=== PATIENT | male | born 1960 | race Caucasian/White ===

== ENCOUNTER 2022-09-12 09:35 | Outpatient (OUT) | payer BC, SELFPAY | END 2022-09-12 09:36 | disposition home or self-care (01) | LOC: LAB 09:38 | PROVIDERS: PCP Internal Medicine | DX: K50.019 Crohn's disease of small intestine with unspecified complications (principal) | CPT/HCPCS: 36415; 84132 ==

== ENCOUNTER 2023-03-18 09:39 | Outpatient (OUT) | payer BC, SELFPAY ==
[2023-03-23 00:07] LABS: Calprotectin, Fecal 79 ug/g (0-120)
== END 2023-03-18 09:40 | disposition home or self-care (01) ==
LOC: LAB 09:41
PROVIDERS: PCP Internal Medicine
DX: K50.819 Crohn's disease of both small and large intestine with unspecified complications (principal)
CPT/HCPCS: 83993

== ENCOUNTER 2023-10-25 12:20 | Outpatient (OUT) | payer BC, SELFPAY ==
[2023-10-25 13:36] LABS: Anion Gap 14.4; BUN Creatinine Ratio 11.9; Calcium 9.2 mg/dL (8.5-10.1); Chloride 107 mmol/L (98-107); Estimated GFR (African America >60 (>=60); Estimated GFR (Non-African Ame 58 (>=60); Glucose 104 mg/dL (74-106); Potassium 4.4 mmol/L (3.5-5.1); Sodium 140 mmol/L (136-145); Thyroid Stimulating Hormone 2.177 uIU/mL (0.358-3.740)
[2023-10-25 14:04] LABS: Basophils Absolute Auto 0.1 10^3/uL (0.0-0.1); Basophils Percent Auto 0.6 % (0.2-2.0); Eosinophils Absolute Auto 0.1 10^3/uL (0.0-0.7); Eosinophils Percent Auto 0.4 % (0.9-7.0); Hematocrit 43.4 % (42.0-54.0); Hemoglobin 14.5 g/dL (14.0-18.0); Immature Granulocytes Abs Auto 0.35 10^3/uL (0.00-0.03); Immature Granulocytes Pct Auto 2.2 % (0.0-0.5); Lymphocytes Absolute Auto 1.1 10^3/uL (1.2-3.8); Mean Corpuscular HGB Conc 33.4 g/dL (29.9-35.2); Mean Corpuscular Hemoglobin 29.6 pg (25.9-34.0); Mean Corpuscular Volume 88.6 fL (80.0-94.0); Mean Platelet Volume 9.9 fL (9.5-13.5); Monocytes Absolute Auto 1.1 10^3/uL (0.3-0.8); Monocytes Percent Auto 6.7 % (1.7-12.0); Neutrophils Percent Auto 83.1 % (43.0-75.0); Platelet Count 234 10^3/uL (150-450); Red Cell Distribution Width 13.5 % (11.0-15.0); White Blood Count 15.7 10^3/uL (4.0-11.0)
== END 2023-10-25 12:21 | disposition home or self-care (01) ==
PROVIDERS: PCP Internal Medicine; Visit Provider Internal Medicine
DX: D64.9 Anemia, unspecified (principal); I10 Essential (primary) hypertension; I42.2 Other hypertrophic cardiomyopathy; R00.2 Palpitations
CPT/HCPCS: 36415; 80048; 84443; 85025

== ENCOUNTER 2024-12-16 10:49 | Outpatient (OUT) | payer BC, SELFPAY ==
--- OUTSIDE RECORDS SUMMARY | 2015-11-09 09:15 | XMS_ITS | Encounter Summary ---
Author Organization [facility] Address [address], [address] [place] [address] Care Team Providers Care Meteorological Aide Name Role Phone Madi Leon DO Primary Care Provider [phone] Encounter Details Date Type Department Care Team (Late st Contact Info) Description 11/09/2015 9:15 AM EDT Hospital Encounter [facility] [address] [place] [address] Madi Leon DO [address] [place] [address] Hailey Garibay, PT Social History Tobacco Use Types Packs/Day Years Used Date Smoking Tobacco: Never Assessed Smokeless Tobacco: Never Sex and Gender Information Value Date Recorded Sex Assigned at Not on file Legal Sex Male 12:41 PM EDT Gender Identity Not on file Sexual Orientation Not on file documented as of this encounter Progress Notes * Hailey Garibay, PT - 11/09/2015 1:49 PM EDT Images from the original note were not included. PT/OT INITIAL EVALUATION REPORT Today???s Date: 11/09/2015 Insurance Company:__[employer]/BS__ Patient Name: Rober Carreno Patient ID #: Date of / Age: 4 1960/ 55 y.o. Date Of Injury: N/A Date Of Surgery: / / ICD-10 Code(s): __M54.5___ Diagnosis: low back pain Referring Practitioner: Dr. Madi E Ball Referring Physician ID #: Therapy Office: [facility] [place] Discipline: [x]PT / []OT OBJECTIVE FINDINGS Involved Region: []Left / []Right / [x]N/A Strength ( 0-5 ) Range of Motion Motion / Grade PROM AROM RLE (degrees) RLE ROM: WFL ROM LLE (degrees) LLE ROM: WFL How / Where Injury Occurred: Pt with chronic low back pain due to other health conditions. Has beendoing well lately but has noticed his glutes are frequently in spasm. Trying to decrease with tennis ball massage but is only temporary. Also states he is having issues with pelvic floor issues sinceglutes have started to spasm. Work Related? []Yes [x]No Pertinent History: Additional Pertinent Hx: crohns x 6 surgeries Pain: Pain Scale: 4 /10 Nature: []constant / [x]intermittent / []localized / []radiating Functional Deficits / Additional Information: Pt to increase muscle tone throughout lumbar and bilateral glutes. Limited HS flexibility. Hypomobile lumbar region. Will benefit from PT to address deficits. Specific Treatment Plan: [x] HP/CP [x] Electrical Stimulation [x] Therapeutic Exercise [] Gait Training [] Traction [x] Ultrasound [x] Massage [] Work Conditioning [] Aquatics [] Back Education [] Therapeutic Activity [x] Manual Therapy [x] Pt Education/HEP [] Anodyne Treatment Goals: Short term goals Time Frame for Short term goals: 3 weeks Short term goal 1: Pt to be instructed in home program. Short term goal 2: Pt to have only min tenderness bilateral lumbar paraspinals and glute region. long term care social worker goals Time Frame for long term care social worker goals : 6 weeks penitentiary goal 1: Pt to report independence and compliance with home program. penitentiary goal 2: Pt to report decrease muscle tightness by 75% throughout the day. long term care social worker goal 3: Pt to have improved HS flexibility with no greater than 30 degrees of knee flexion with 90/90 testing. penitentiary goal 4: Pt to have no tenderness througthout lumbar and glute regions. Projected Frequency / Duration of Treatment Days: 2 times per week Weeks: 6 weeks Therapist Signature: Printed Therapist Name and License #:Hailey Garibay [place] [id number] Copyright 2012 [employer] Created: / Revised: 03/24 * Hailey Garibay PT - 11/09/2015 1:49 PM EDT [facility] Outpatient Physical Therapy Evaluation Date: 11/09/2015 Patient: Rober Carreno : 1960 Referring physician: Madi Leon DO Referring Practitioner: Dr. Madi Leon Referral Date : 11/05/15 Diagnosis: low back pain Treatment Diagnosis: low back pain Onset Date: 11/05/15 PT Insurance Information: [employer] Total # of Visits Approved: 18 Per Physician Order Total # of Visits to Date: 1 No Show: 0 Canceled Appointment: 0 Subjective Subjective: Pt with chronic low back pain due to other health conditions. Has been doing well lately but has noticed his glutes are frequently in spasm. Trying to decrease with tennis ball massage but is only temporary. Also states he is having issues with pelvic floor issues since glutes have started to spasm. Additional Pertinent Hx: crohns x 6 surgeries Pain Screening Patient Currently in Pain: Yes Pain Assessment Pain Assessment: 0-10 Pain Level: 4 Objective Observation/Palpation Palpation: moderate tenderness lumbar paraspinal and glutes. Observation: Decrease lumbar lordosis Spine Lumbar: flex is full, ext limited 50-75% Special Tests: Neg SLR Joint Mobility Spine: hypomobility throughout lumbar ROM LLE (degrees) LLE ROM: WFL RLE (degrees) RLE ROM: WFL Additional Measures Flexibility: HS 90/90 - right 41 degrees, left 40 degrees Assessment Assessment: Pt to increase muscle tone throughout lumbar and bilateral glutes. Limited HS flexibility. Hypomobile lumbar region. Will benefit from PT to address deficits. Prognosis: Good Activity Tolerance: Patient Tolerated treatment well Goals Short term goals Time Frame for Short term goals: 3 weeks Short term goal 1: Pt to be instructed in home program. Short term goal 2: Pt to have only min tenderness bilateral lumbar paraspinals and glute region. long term care social worker goals Time Frame for penitentiary goals : 6 weeks long term care social worker goal 1: Pt to report independence and compliance with home program. penitentiary goal 2: Pt to report decrease muscle tightness by 75% throughout the day. long term care social worker goal 3: Pt to have improved HS flexibility with no greater than 30 degrees of knee flexion with 90/90 testing. penitentiary goal 4: Pt to have no tenderness througthout lumbar and glute regions. Patient's Goal: Decrease muscle tension. Time In: 0915 Time Out: 1043 Timed Code Treatment Minutes: 67 Minutes Total Treatment Time: 88 Hailey Garibay PT, DPT 11/09/2015 documented in this encounter Plan of Treatment Not on file documented as of this encounter Visit Diagnoses Not on filedocumented in this encounter Care Teams Meteorological Aide Relationship Specialty Start Date End Date Madi Leon DO PCP - General 11/06/15 documented as of this encounter
--- OUTSIDE RECORDS SUMMARY | 2015-11-12 14:30 | XMS_ITS | Encounter Summary ---
Author Organization [facility] Address [address], [address] [place] [address] Care Team Providers Care Database Security Administrator Name Role Phone Madi Leon DO Primary Care Provider [phone] Encounter Details Date Type Department Care Team (Late st Contact Info) Description 11/12/2015 2:30 PM EDT Hospital Encounter [facility] [address] [place] [id number] Madi Leon DO [address] [place] [address] Hailey Garibay, PT Social History Tobacco Use Types Packs/Day Years Used Date Smoking Tobacco: Never Assessed Smokeless Tobacco: Never Sex and Gender Information Value Date Recorded Sex Assigned at Not on file Legal Sex Male 12:41 PM EDT Gender Identity Not on file Sexual Orientation Not on file documented as of this encounter Progress Notes * Hailey Garibay PT - 11/12/2015 3:57 PM EDT [facility] Outpatient Physical Therapy Daily Note Patient: Rober Carreno : 1960 Referring Practitioner: Dr. Madi Leon Referral Date : 11/05/15 Date: 11/12/2015 Referring Practitioner: Dr. Madi Leon Referral Date : 11/05/15 Diagnosis: low back pain Treatment Diagnosis: low back pain Onset Date: 11/05/15 PT Insurance Information: [employer] Total # of Visits Approved: 7 Per Physician Order Total # of Visits to Date: 2 No Show: 0 Canceled Appointment: 0 Pre-Treatment Pain: 3/10 Subjective: Pt states he had to drive 7 hours to [place] the other day for work. Drove 7 hours back today. States his low back has felt less tense since Monday's treatment. States he felt muscles on right side especially release, however, sx's have returned with prolong driving. Exercises/Modalities/Manual: See DocFlow Sheet Assessment Assessment: Min/mod mobility restrictions L3 and L4 with central PA mobs. Tenderness along post rimiliac crest bilateral with trigger point tenderness noted right greater than left. Patient Education Importance of continued stretching to decrease muscle tone. Plan Plan: Plan of care initiated Goals (Total # of Visits to Date: 2) Short Term Goals - Time Frame for Short term goals: 3 weeks Short term goal 1: Pt to be instructed in home program. Short term goal 2: Pt to have only min tenderness bilateral lumbar paraspinals and glute region. Web Marketing Manager Goals - Time Frame for halfway goals : 6 weeks halfway goal 1: Pt to report independence and compliance with home program. halfway goal 2: Pt to report decrease muscle tightness by 75% throughout the day. halfway goal 3: Pt to have improved HS flexibility with no greater than 30 degrees of knee flexion with 90/90 testing. termite control representative goal 4: Pt to have no tenderness througthout lumbar and glute regions. Post Treatment Pain: 2/10 Time In: 1430 Time Out: 1551 Timed Code Treatment Minutes: 36 Minutes Total Treatment Time: 81 Minutes Hailey Garibay PT, DPT Date: 11/12/2015 documented in this encounter Plan of Treatment Not on file documented as of this encounter Visit Diagnoses Not on filedocumented in this encounter Care Teams Database Security Administrator Relationship Specialty Start Date End Date Madi Leon DO PCP - General 11/06/15 documented as of this encounter
--- OUTSIDE RECORDS SUMMARY | 2015-11-20 07:45 | XMS_ITS | Encounter Summary ---
Author Organization [facility] Address [address], [address] [place] [address] Care Team Providers Care Carbon Capture Power Plant Operator Name Role Phone Madi Leon DO Primary Care Provider [phone] Encounter Details Date Type Department Care Team (Late st Contact Info) Description 11/20/2015 7:45 AM EDT Hospital Encounter [facility] [address] [place] [phone] Madi Leon DO [address] [place] [address] Hailey Garibay, PT Social History Tobacco Use Types Packs/Day Years Used Date Smoking Tobacco: Never Assessed Smokeless Tobacco: Never Sex and Gender Information Value Date Recorded Sex Assigned at Not on file Legal Sex Male 12:41 PM EDT Gender Identity Not on file Sexual Orientation Not on file documented as of this encounter Discharge Summaries * Hailey Garibay, PT - 03/09/2016 4:[address] [facility] Outpatient Physical Therapy Discharge Summary Patient: Rober Carreno : 1960 Referring physician: Madi Leon DO Referring Practitioner: Dr. Madi Leon Diagnosis: low back pain Date Treatment Initiated: 11/09/15 Date of Last Treatment: 11/20/15 PT Visit Information Onset Date: 11/05/15 PT Insurance Information: [employer] Total # of Visits Approved: 7 Total # of Visits to Date: 3 Plan of Care/Certification Expiration Date: 12/20/15 No Show: 0 Canceled Appointment: 1 Frequency/Duration Days: 2 times per week Weeks: 6 weeks Treatment Received [x]HP/CP [x]Electrical Stim [x]Therapeutic Exercise []Gait Training []Aquatics []Ultrasound [x]Patient Education/HEP [x]Manual Therapy []Traction [x]Neuro-kristofer [x]Soft Tissue Mobs []Home TENS []Iontophoresis []Orthotic casting/fitting [x]Dry Needling Assessment Assessment: Pt completed 3 PT visits before leaving for vacation. No further visits were scheduled and we will now discharge PT episode. Goals Short term goals Time Frame for Short term goals: 3 weeks Short term goal 1: Pt to be instructed in home program. Short term goal 2: Pt to have only min tenderness bilateral lumbar paraspinals and glute region. manager intermediate goals Time Frame for manager intermediate goals : 6 weeks manager intermediate goal 1: Pt to report independence and compliance with home program. manager intermediate goal 2: Pt to report decrease muscle tightness by 75% throughout the day. manager intermediate goal 3: Pt to have improved HS flexibility with no greater than 30 degrees of knee flexion with 90/90 testing. halfway goal 4: Pt to have no tenderness througthout lumbar and glute regions. Reason for Discharge [] Goals Achieved [] Poor Follow Through/Attendance [x] Optimal Function Achieved [x] Patient Discharged Self [] Hospitalization [] Physician discharge Thank you for this referral Hailey Garibay PT, DPT Date: 03/09/2016 documented in this encounter Progress Notes * Hailye Garibay PT - 11/20/2015 9:[address] [facility] Outpatient Physical Therapy Daily Note Patient: Rober Carreno : 1960 Referring Practitioner: Dr. Madi Leon Referral Date : 11/05/15 Date: 11/20/2015 Referring Practitioner: Dr. Madi Leon Referral Date : 11/05/15 Diagnosis: low back pain Treatment Diagnosis: low back pain Onset Date: 11/05/15 PT Insurance Information: [employer] Total # of Visits Approved: 7 Per Physician Order Total # of Visits to Date: 3 No Show: 0 Canceled Appointment: 0 Pre-Treatment Pain: 2/10 Subjective: Hips feel like the are loosening up. Trying to stretch more at home, getting closer to being able to touch toes. Exercises/Modalities/Manual: See DocFlow Sheet Assessment Assessment: Min tenderness along superior border of glutes and QL this date. Will continue to progress as pt tolerates. Patient Education Patient Education: Importance of continued stretching at home. Plan Plan: Plan of care initiated Goals (Total # of Visits to Date: 3) Short Term Goals - Time Frame for Short term goals: 3 weeks Short term goal 1: Pt to be instructed in home program. Short term goal 2: Pt to have only min tenderness bilateral lumbar paraspinals and glute region. Prison Goals - Time Frame for halfway goals : 6 weeks halfway goal 1: Pt to report independence and compliance with home program. halfway goal 2: Pt to report decrease muscle tightness by 75% throughout the day. manager intermediate goal 3: Pt to have improved HS flexibility with no greater than 30 degrees of knee flexion with 90/90 testing. manager intermediate goal 4: Pt to have no tenderness througthout lumbar and glute regions. Post Treatment Pain: 110 Time In: 0750 Time Out: 0834 Timed Code Treatment Minutes: 28 Minutes Total Treatment Time: 44 Minutes Hailey Garibay PT, DPT Date: 11/20/2015 documented in this encounter Plan of Treatment Not on file documented as of this encounter Visit Diagnoses Not on filedocumented in this encounter Care Teams Carbon Capture Power Plant Operator Relationship Specialty Start Date End Date Madi Leon DO PCP - General 11/06/15 documented as of this encounter
--- OUTSIDE RECORDS SUMMARY | 2024-12-16 06:53 | XMS_ITS | Continuity of Care Document ---
Author Organization [facility] Address [address] [place] [address] Phone Care Team Providers Care Composition Teacher Name Role Phone Madi Leon DO Primary Care Provider Madi Leon DO Attending Provider Care Teams Patient Care Team Team Status: Active Member Role Status Dates Madi Leon DO Primary Care Provider Active Patient Care Team Team Status: Inactive Member Role Status Dates Madi Leon DO Primary Care Provider Active Start: December 16, 2024 End: December 16, 2024 Madi Leon DO Attending Provider Active Sta rt: December 16, 2024 End: December 16, 2024 Chief Complaint and Reason for Visit Chief Complaint Admit Date R Elbow Pain December 16, 2024 9: 47am Reason for Visit Admit Date Contusion of elbow, right December 16, 2 025 9:47am Elbow pain December 16, 2024 9: 47am Generalized anxiety disorder December 9:47am Allergies, Adverse Reactions, Alerts Allergen Type Severity Reaction Last Updated Verified Status acetaminophen Allergy Unknown Unknown Reaction Octob er 2024 9:52am Yes Active azathioprine Allergy Unknown joint stiffness December 16, 2024 9:52am Yes Active Social History Smoking Status Status Start Date End Date Date of Observa tion Never smoked tobacco (finding) October 20, 2023 1:22pm Observation Status Observation Response Date of Response Legal Sex Male (finding) Sex Assigned At Male 1960 Family History Relationship Condition Age at Onset Recorded Date/T sally father Unknown Heart disease Unknown family member Unknown mother Unknown Diabetes mellitus Unknown son Family history of mental disorder Unknown Problems Active Problems Medical Problem Onset Date Status Comments Inflamed skin tag Unknown Active At risk for infection due to immunosuppression Unknown Active Immunosuppressed status Unknown Active Primary insomnia Unknown Active Generalized anxiety disorder Unknown Active Dizziness Unknown Active Superficial ulcer of skin Unknown Active Eustachian salpingitis, chronic Unknown Active Actinic keratosis Unknown Active Anemia Unknown Active Crohn's disease Unknown Active Lymphadenopathy Unknown Active Verruca Unknown Active Hypertrophic nonobstructive cardiomyopathy Unknown Active Echo: LVEF 55%, RVSP 30 - 07/2023,Echo: LVEF 55%, RV dilated, normal function, RVSP 30, Ao 4.1cm - 07/2024, Elbow pain Unknown Active Wart Unknown Active Hypertension Unknown Active Contusion of elbow, right Unknown Active Medications Medication Status Dose Units Route Directions Qty Days St art Date Stop Date End Date Instructions Adherence Lisinopril 20 mg tablet Active 0 .ROUTE .COMPLEX 90 er 2023 6:16pm TAKE ONE TABLET BY MOUTH EVERY DAY Complies with drug therapy Azithromyci n 250 mg tablet Discont inued 250 MG PO .COMPLEX 6 2024 2:08pm September 04, 2024 1:54p m 2 tabs on first day followed by 1 tab on days 2-5 Methotrexat e Sodium 10 mg Tablet Discont inued 20 MG PO As Directed 2016 12:00a m June 06, 2023 9:17a m Magnesium Oxide 400 mg Tablet Discont inued 400 MG PO Daily 2016 12:00a m June 06, 2023 9:17a m Folic Acid 1 mg Tablet Discont inued 1 MG PO Daily 2016 12:00a m June 06, 2023 9:17a m Adalimumab (Humira Pen) 40 mg/0.8 mL Pen Injector Kit Discont inued 40 MG SUBCUT As Directed 2016 12:00a m June 06, 2023 9:17a m Budesonide 3 mg capsule,del ayed,extend .release Active 6 MG PO Daily June 06, 2023 12:00a m Complies with drug therapy Ferrous Sulfate 325 mg (65 mg iron) tablet Active 325 MG PO Daily June 06, 2023 12:00a m Complies with drug therapy Metoprolol Tartrate 50 mg tablet Active 50 MG PO Twice daily June 06, 2023 12:00a m Complies with drug therapy Nystatin 100,000 unit/mL suspension Active 4 ML PO Four times daily June 06, 2023 12:00a m swish and swallow Complies with drug therapy Pantoprazol e 40 mg tablet,cristal yed release (DR/EC) Active 40 MG PO Daily June 06, 2023 12:00a m Complies with drug therapy Potassium Chloride 20 mEq tablet extended release Active 20 MEQ PO Three times daily June 06, 2023 12:00a m Complies with drug therapy Prednisone 5 mg tablet Active 7.5 MG PO Daily June 06, 2023 12:00a m Complies with drug therapy Risankizuma b-Rzaa 360 mg/2.4 mL (150 mg/mL) wearable injector Active 360 MG SUBCUT .every 8 weeks June 06, 2023 12:00a m Complies with drug therapy Cholecalcif pancho (Vitamin D3) 25 mcg (1,000 unit) capsule Active 25 MCG PO Daily June 06, 2023 12:00a m Complies with drug therapy Zolpidem 10 mg tablet Discont inued 10 MG PO Daily at bedtime June 06, 2023 12:00a m Septe mber 2023 9:47a m Lisinopril 20 mg tablet Discont inued 20 MG PO Daily September 27, 2023 12:00a m September 27, 2023 11:33 am Lisinopril 20 mg tablet Discont inued 20 MG PO Daily 90 90 September 27, 2023 11:33a m Novem nava 2023 6:16p m Cephalexin 500 mg capsule Discont inued 500 MG PO Three times daily 30 September 04, 2024 12:00a m Octob er 2024 9:52a m Zolpidem 10 mg tablet Active 10 MG PO Daily at bedtime 30 September 04, 2024 2:07pm Complies with drug therapy Mupirocin 2 % ointment Active 1 APPLIC TOPICA L Twice daily 22 September 04, 2024 12:00a m Complies with drug therapy Buspirone 10 mg tablet Active 10 MG PO Twice daily as needed for anxiety 60 30 Octobe r 2024 12:00a m Complies with drug therapy Cyanocobala min (Vitamin B-12) 1,000 mcg/mL solution Active 1000 MCG IM every month 1 30 Septem nava 4 12:00a m Complies with drug therapy Zolpidem 10 mg tablet Discont inued 10 MG PO Daily at bedtime 2023 9:45am September 04, 2024 2:23p m Azithromyci n 250 mg tablet Discont inued 250 MG PO .COMPLEX 6 5 Decemb er 2023 1:00am Janua ry 2024 2:08p m 2 tabs on first day followed by 1 tab on days 2-5 Immunizations Immunization Event Date Not Given Reason Dose Number Biofuels Plant Operations Engineer Lot Number Vaccine Information Statement (VIS) Detail Administration Location Pfizer/The Beer X-Change ty, Pediatric Age 5-11 February 12, 2022 COVID-19 mRNA, Comirnaty (Hello! Messenger) June 03, 2020 COVID-19 mRNA, Comirnaty (Hello! Messenger) October 25, 2020 COVID-19 mRNA, Comirnaty (Hello! Messenger) May 13, 2020 [id number] COVID-19 Comirnaty (Hello! Messenger) Tri-Sucrose 12+ August 20, 2021 [id number] COVID-19 mRNA Bivalent Booster (Hello! Messenger) February 12, 2022 [id number] Hepatitis A Vaccine, adult dosage October 07, 2014 [id number] Hepatitis A Vaccine, adol/ped, 2 dose January 29, 2014 Influenza, seasonal, injectable, pf December 09, 2023 [id number] influenza, unspecified formulation December 05, 2016 influenza, unspecified formulation December 20, 2019 influenza, unspecified formulation December 20, 2020 influenza, unspecified formulation December 22, 2021 Pneumococcal Conjugate Vaccine, 13 valent March 19, 2018 [id number] Pneumococcal Conjugate Vaccine, 20 valent December 16, 2024 [id number] [facility] Pneumococcal Polysacc. Vaccine, 23 valent April 09, 2017 Quadrivalent Influenza December 28, 2014 [id number] Quadrivalent Influenza December 24, 2022 [id number] Quadrivalent Influenza November 09, 2015 Quadrivalent Influenza November 19, 2015 [id number] Quadrivalent Influenza December 05, 2016 [id number] Quadrivalent Influenza December 28, 2017 [id number] Quadrivalent Influenza December 14, 2018 [id number] Quadrivalent Influenza December 20, 2019 [id number] Quadrivalent Influenza December 20, 2020 [id number] Quadrivalent Influenza December 22, 2021 [id number] Zoster Vaccine Recombinant, Adjuvanted February 14, 2023 [id number] Zoster Vaccine Recombinant, Adjuvanted May 29, 2023 [id number] Tetanus, Diphtheria adult, 5 Lf pres free abs December 30, 2012 Tetanus, Diphtheria adult, 5 Lf pres free abs December 17, 2013 Tetanus, Diphtheria adult, 5 Lf pres free abs December 28, 2014 Tetanus, Diphtheria adult, 5 Lf pres free abs November 19, 2015 Vital Signs Vital Reading Result Reference Range Collection Date/Time Height 75 [in_i] December 16 9:55am Weight 97.06 kg December 16 9:55am Heart Rate 73 /min 60-100 December 16 9:55am Respiratory rate 12 /min -December 9:55am BP Systolic 123 mm[Hg] 100-140 December 16 9:55am BP Diastolic 69 mm[Hg] 60-100 December 16 9:55am BMI (Body Mass Index) 26.7 kg/m2 Octobe r 2024 9:55am Advance Directives Advance Directive Response Recorded Date/ Time Advance Directives No October 19 2 024 1:22pm Insurance Providers Guarantor José Miguel Carreno JR Address [facility] [address] Contact Info. Home Phone: Payer Policy Id Subscriber's Name Subscriber Id Brodie ctive Date Expiration Date MMO [id number] José Miguel Carreno JR [id number] Joanna SPRINGER/ROWENA [id number] José Miguel Carreno JR [id number] Joanna SPR[employer]ER/ROWENA [facility] [id number] José Miguel Isaiah JR Ev [id number] [facility] [id number] Encounters Encounter Location(s) Arrival/Admit Date Discharge/Depart Date Provider(s) Departed Physician/Prov ider Office Visit -[facility] December 16, 2024 9:47am December 16, 2024 10:52am Madi Leon DO Recent Diagnosis Onset Date Admit Date Contusion of elbow, right Unknown Octobe r 2024 9:47am Elbow pain Unknown December 16 9:47am Generalized anxiety disorder Unknown Oct [place]inton 2024 9:47am Assessments Diagnosis Onset Date Resolution Status Admit Date Contusion of elbow, right acute December 16, 2024 9:47am Elbow pain acute December 16, 2 025 9:47am Generalized anxiety disorder acute December 16, 2024 9:47am Plan of Treatment Author Madi Leon [facility] Authored December 16, 2024 10 :36am Instructed on use of ice, br acing and Voltaren Gel XR to r/o chip fx Instructed on healthy diet, exercise and proper sleep routine. Instructed to use Buspirone as needed Instructed on use of ice, bracing and Voltaren Gel XR to r/o chip fx Future Tests Future scheduled test information is unavailable Pending Tests Test Name Ordered Date Scheduled Date XR elbow RT min 3V* December 16, 2024 10:29am Future Visits Future appointment information is unavailable Referrals to Other Providers Referral information is unavailable Future Procedures Future procedure information is unavailable Future Medications Future medication information is unavailable Patient Instructions Patient instructions are unavailable
--- OUTSIDE RECORDS SUMMARY | 2024-12-16 09:10 | XMS_ITS | Encounter Summary ---
Author Organization [facility] Address [address] [place] [address] Care Team Providers Care Certified Orthotist Practice Manager Name Role Phone Madi Leon DO Primary Care Provider [phone] Reason for Visit * Reason Comments Suspicious Skin Lesion Encounter Details Date Type Department Care Team (Late st Contact Info) Description 12/16/2024 9:10 AM EDT Office Visit [facility] [address] [facility] [address] [place] [phone] Skylar Jacob APRN-CNP [address] [facility] [address] [place] [address] Inflamed seborrheic keratosis (Primary Dx) Social History Tobacco Use Types Packs/Day Years Used Date Smoking Tobacco: Never Smokeless Tobacco: Never Alcohol Use Standard Drinks/Week Comments Not Currently 0 (1 standard drink = 0.6 oz pur e alcohol) Sex and Gender Information Value Date Recorded Sex Assigned at Not on file Legal Sex Male 7:21 PM EDT Gender Identity Not on file Sexual Orientation Not on file documented as of this encounter Progress Notes * GELY Fields - 12/16/2024 9:10 AM EDT Lesions Location: necks, chest Duration: months Quality: itchy Modifying factors: rubs on clothing Associated symptoms: rough, raised Treatments: none All pertinent medical history, medications, and allergies were reviewed. General Exam: alert, oriented to person, place, and time, normal affect, well appearing A focused exam completed based on patient reported problems, see below: Skin Exam 1. INFLAMED SEBORRHEIC KERATOSIS (14) Left Forearm - Posterior (3), Left Lower Leg - Anterior, Left Postauricular Area, Neck - Anterior (2), Right Breast, Right Forearm - Posterior (2), Right Lower Leg - Posterior, Right Thigh - Anterior, Right Upper Arm - Posterior (2) Inflamed seborrheic keratoses: pink and brown stuck on verrucous scaly papules with surrounding erythema and bloody crust. The patient was informed that symptomatic seborrheic keratoses are benign growths that become inflamed, itchy, tender, traumatized, caught on clothing, or bleed. Symptomatic lesions can be treated with cryotherapy or curretage. Thicker lesions treated with cryotherapy may require more than one treatment. The patient was instructed to notify the office if abnormal redness or tenderness develops atthe treatment site. Cryotherapy today, see procedure note. Diagnosis: Inflamed seborrheic keratosis Indication: Inflamed Consent: Verbal consent was obtained and risks were discussed, including, but not limited to risks of scarring, darker or seo engineer pigmentary changes, recurrence, incomplete removal and infection. Method: Liquid nitrogen was used to treat the lesion(s) with two 5-10 second freeze-thaw cycles Number of lesions treated: 14 Post-procedure instructions: Instructions were given orally and in writing. The office will be contacted if the lesion fails to resolve despite treatment, or if a side effect develops such as abnormal crusting, scabbing, redness or tenderness Cryotherapy, skin lesion - Left Forearm - Posterior (3), Left Lower Leg - Anterior, Left Postauricular Area, Neck - Anterior (2), Right Breast, Right Forearm - Posterior (2), Right Lower Leg - Posterior, Right Thigh - Anterior, Right Upper Arm - Posterior (2) Next Visit: prn for any new/changing lesions documented in this encounter Plan of Treatment Upcoming Encounters Date Type Department Care Team (Late st Contact Info) Description 11/18/2025 8:40 AM EDT Office Visit [facility] [address] [place] [address] Skylar Jacob APRN-CNP [address] [place] [address] documented as of this encounter Procedures Procedure Name Priority Date/Time Associated Diagnosis Comments CRYOTHERAPY SKIN LESION Routine 12/17/19 9:01 AM EDT Inflamed seborrheic keratosis documented in this encounter Results * Cryotherapy, skin lesion (12/16/2024 9:01 AM EDT) us Skylar Jacob WAITER/WAITRESS BAR-THERMOFORMING OPERATOR DERM PROCEDURE ORDERAB LES Final Result documented in this encounter Visit Diagnoses Diagnosis Inflamed seborrheic keratosis- Primary documented in this encounter Care Teams Certified Orthotist Practice Manager Relationship Specialty Start Date End Date Madi Leon DO [address] [place] [id number] PCP - General Internal Medicine 09/19/22 documented as of this encounter
--- OUTSIDE RECORDS SUMMARY | 2024-12-16 10:58 | XMS_ITS | Encounter Summary ---
Author Organization [facility] Address [address] [place] [address] Care Team Providers Care Ranch Supervisor Name Role Phone Shade Leon Primary Care Provider [phone] Damir Witt MD Unavailable [phone] Source Comments In the event this information is protected by the Federal Confidentiality of Alcohol and Drug AbusePatient Records regulations: The Federal rules restrict any use of the information to criminally investigate or prosecute any alcohol or drug abuse patient.[facility] Encounter Details Date Type Department Care Team (Late st Contact Info) Description 09/12/2022 Patient Msg Gastroenterology [address] [id number] Provider, [facility] GI lab orders and CT appointment Social History Tobacco Use Types Packs/Day Years Used Date Smoking Tobacco: Never Smokeless Tobacco: Never Alcohol Use Standard Drinks/Week Comments Never 0 (1 standard drink = 0.6 oz pur e alcohol) Overall Financial Resource Strain (CARDIA) Answe r Date Recorded How hard is it for you to pa y for the very basics like food, housing, medical care, and heating? Not hard at all 06/24/2022 Hunger Vital Sign Answer Date Recorded Within the past 12 months, y ou worried that your food would run out before you got the money to buy more. Never true 06/25/19 23 Within the past 12 months, t he food you bought just didn't last and you didn't have money to get more. Never true 06/24/2022 PRAPARE - Transportation Answer Date Re corded In the past 12 months, has l ack of transportation kept you from medical appointments or from getting medications? No 06/11 In the past 12 months, has l ack of transportation kept you from meetings, work, or from getting things needed for daily living? No 06/24/2022 Housing Stability Vital Sign Answer Mykel e Recorded In the last 12 months, was t here a time when you were not able to pay the mortgage or rent on time? No 06/24/2022 In the last 12 months, how many places have you lived? 1 06/24/2022 In the last 12 months, was t here a time when you did not have a steady place to sleep or slept in a penitentiary (including now)? No 06/24/2022 Area Deprivation Index Answer Date Oscar rded National Score (1-100), lower number is lower ri sk 89 08/09/2022 State Score (1-10), lower number is lower risk 8 08/09/2022 Data from: https://www.neighborhoodatlas.medicine.[facility].edu/. Last address used for calculation [address] 08/09/2022 Sex and Gender Information Value Date Recorded Sex Assigned at Not on file Legal Sex Male 9:36 AM EST Gender Identity Not on file Sexual Orientation Not on file documented as of this encounter Plan of Treatment Upcoming Encounters Date Type Department Care Team (Latest Contact Info) Description 12/26/2024 4:[address] [facility] Gastroenterology [address] [place] [address] Per Andres MD, PhD [address] [place] [address] Follow Up 12/30/2024 12:45 PM EDT Appointment Cardiology [address] [place] [address] DEVICE CHECK FOR MRI CLEARENCE 12/30/2024 2:10 PM EDT Appointment MRI Q [address] [place] [address] DUE TO PT IMPLANT- IF APPT NEEDS TO BE RESCHEDULED IT MUST BE SENT TO THE FOLLOWING STAFF MESSAGE ADDRESS: IMAGING IMPLANTS [[id number]] ICD approved to schedule by . 01/28/2025 11:00 AM EST Appointment [facility] [place] Scan [address] [place] [address] Crohn's disease with complication, unspecified gastrointestinal tract location (HCC) [K50.919] 01/28/2025 12:30 PM EST Appointment [facility] [place] Scan [address] [place] [address] Crohn's disease with complication, unspecified gastrointestinal tract location (HCC) [K50.919] 02/17/2025 1:30 PM EST Office Visit Vascular Medicine [address] [place] [address] Coronary artery calcification; Aortic root dilation 02/17/2025 2:45 PM EST Office Visit [facility] [address] [place] [address] Mary Fatima, PULPING MACHINE OPERATOR.NURSING SERVICE ADMINISTRATOR [address] [place] [address] Coronary artery calcification; Aortic root dilation documented as of this encounter Visit Diagnoses Not on filedocumented in this encounter Care Teams Ranch Supervisor Relationship Specialty Start Date End Date Shade Leon [address] [place] [address] PCP - General 06/22/00 Damir Witt MD [address] [place] [address] Primary Staff Physician Cardiology 12/13/22 documented as of this encounter
--- OUTSIDE RECORDS SUMMARY | 2024-12-16 10:58 | XMS_ITS | Encounter Summary ---
Author Organization [facility] Address [address] [place] [address] Care Team Providers Care Hardware Installation Coordinator Name Role Phone Shade Leon Primary Care Provider [phone] Damir Witt MD Unavailable [phone] Source Comments In the event this information is protected by the Federal Confidentiality of Alcohol and Drug AbusePatient Records regulations: The Federal rules restrict any use of the information to criminally investigate or prosecute any alcohol or drug abuse patient.[facility] Encounter Details Date Type Department Care Team (Late st Contact Info) Description 12/06/2022 Patient Msg Gastroenterology [address] [phone] Provider, [facility] GI follow up Social History Tobacco Use Types Packs/Day Years [...] and heating? Not hard at all 06/24/2022 PHQ-2 Answer Date Recorded PHQ-2 score 0 10/05/2022 Hunger Vital Sign Answer Date Recorded Within [...] place to sleep or slept in a prison (including now)? No 06/24/2022 Area Deprivation Index Answer Date Oscar rded National Score (1-100), lower number is lower ri sk 89 08/09/2022 State Score (1-10), lower number is lower risk 8 08/09/2022 Data from: https://www.neighborhoodatlas.medicine.[facility].edu/. Last address used for calculation [...] Contact Info) Description 12/26/2024 4:30 PM EDT [facility] Gastroenterology [address] [address] Per Andres MD, PhD [address] [place] [address] Follow Up 12/30/2024 12:45 PM EDT Appointment Cardiology [address] [id number] DEVICE CHECK FOR MRI CLEARENCE 12/30/2024 2:10 PM EDT Appointment MRI Q [address] [place] [address] DUE TO PT IMPLANT- IF APPT NEEDS TO BE RESCHEDULED IT MUST BE SENT TO THE FOLLOWING STAFF MESSAGE ADDRESS: IMAGING IMPLANTS [[id number]] ICD approved to schedule by . 01/28/2025 11:00 AM EST Appointment [facility] [place] Scan [address] [place] [address] Crohn's disease with complication, unspecified gastrointestinal tract location (HCC) [K50.919] 01/28/2025 12:30 PM EST Appointment [facility] [place] Scan [address] [place] [address] Crohn's disease with complication, unspecified gastrointestinal tract location (HCC) [K50.919] 02/17/2025 1:30 PM EST Office Visit Vascular Medicine [address] [place] [address] Coronary artery calcification; Aortic root dilation 02/17/2025 2:45 PM EST Office Visit Preventive Cardiology [address] [place] [address] Mary Fatima, LEATHER COVERER.INSIDE SALES EXECUTIVE [address] [place] [address] Coronary artery calcification; Aortic root dilation documented as of this encounter Visit Diagnoses Not on filedocumented in this encounter Care Teams Hardware Installation Coordinator Relationship Specialty Start Date End Date Shade Leon [address] [place] [address] PCP - General 06/22/00 Damir Witt MD [address] [place] [address] Primary Staff Physician Cardiology 12/13/22 documented as of this encounter
--- OUTSIDE RECORDS SUMMARY | 2024-12-16 10:58 | XMS_ITS | Encounter Summary ---
Author Organization [facility] Address [address] [place] [address] Care Team Providers Care Hearing Aid Repair Technician Name Role Phone Edward Shadejodie Menjivarmond Primary Care Provider +1- [phone] Damir Witt MD Unavailable [phone] Source Comments In the event this information is protected by the Federal Confidentiality of Alcohol and Drug AbusePatient Records regulations: The Federal rules restrict any use of the information to criminally investigate or prosecute any alcohol or drug abuse patient.[facility] Encounter Details Date Type Department Care Team (Late st Contact Info) Description 10/20/2022 Get Medical Advice Gastroenterology [address] [place] [address] Per Andres MD, PhD [address] [place] [address] Condition update Social History Tobacco Use Types Packs/Day Years [...] place to sleep or slept in a chcf (including now)? No 06/24/2022 Area Deprivation Index Answer Date Oscar rded National Score (1-100), lower number is lower ri sk 89 08/09/2022 State Score (1-10), lower number is lower risk 8 08/09/2022 Data from: https://www.neighborhoodatlas.medicine.[facility].edu/. Last address used for calculation [address] 08/09/2022 Sex and Gender Information Value Date Recorded Sex Assigned at Not on file Legal Sex Male 9:36 AM EST Gender Identity Not on file Sexual Orientation Not on file documented as of this encounter Miscellaneous Notes * Telephone Encounter - Brittny Callejas LPN - 10/26/2022 9:21 AM EDT Dosing changed from 30 tablets TID for 10 days to 42 tablets TID for 14 days. Unable to submit prior auth via cover my meds due to original dosing prior auth is cancelling new request. Call placed to [facility] by way of [facility] [phone] phone tree. Spoke with rep Lamjennifer CharlesCeli Original prior auth request cancelled and new dosing prior auth submitted verbally for response turn around time 5 days via fax to . Brittny Callejas LPN documented in this encounter Plan of Treatment Upcoming Encounters Date Type Department Care Team (Latest Contact Info) Description 12/26/2024 4:30 PM EDT [facility] Gastroenterology [address] [address] Per Andres MD, PhD [address] [place] [address] Follow Up 12/30/2024 12:45 PM EDT Appointment Cardiology 9300 [place] [address] DEVICE CHECK FOR MRI CLEARENCE 12/30/2024 2:10 PM EDT Appointment MRI Q [address] [address] DUE TO PT IMPLANT- IF APPT NEEDS TO BE RESCHEDULED IT MUST BE SENT TO THE FOLLOWING STAFF MESSAGE ADDRESS: IMAGING IMPLANTS [[id number]] ICD approved to schedule by . 01/28/2025 11:00 AM EST Appointment [facility] [place] Scan [address] [place] [address] Crohn's disease with complication, unspecified gastrointestinal tract location (HCC) [K50.919] 01/28/2025 12:30 PM EST Appointment [facility] [place] Scan [address] [place] [address] Crohn's disease with complication, unspecified gastrointestinal tract location (HCC) [K50.919] 02/17/2025 1:30 PM EST Office Visit Vascular Medicine [address] [place] [address] Coronary artery calcification; Aortic root dilation 02/17/2025 2:45 PM EST Office Visit Preventive Cardiology 9300 [place] [address] Mary Fatima, REGULATORY ADMINISTRATOR.ANTHROPOLOGY PROFESSOR [address] [place] [address] Coronary artery calcification; Aortic root dilation documented as of this encounter Visit Diagnoses Not on filedocumented in this encounter Care Teams Hearing Aid Repair Technician Relationship Specialty Start Date End Date Shade Leon [address] [place], [place] [id number] PCP - General 06/22/00 Damir Witt MD [address] [place] [address] Primary Staff Physician Cardiology 12/13/22 documented as of this encounter
--- OUTSIDE RECORDS SUMMARY | 2024-12-16 10:58 | XMS_ITS | Encounter Summary ---
Author Organization [facility] Address [address] [place] [address] Care Team Providers Care Mechanism Inspector Name Role Phone Edward Shade Lam Primary Care Provider [phone]- [phone] Damir Witt MD Unavailable [phone] Source Comments In the event this information is protected by the Federal Confidentiality of Alcohol and Drug AbusePatient Records regulations: The Federal rules restrict any use of the information to criminally investigate or prosecute any alcohol or drug abuse patient.[facility] Encounter Details Date Type Department Care Team (Late Contact Info) Description 09/20/2022 Patient Msg Gastroenterology 2048 [place] [address] Anastasiia Blood, [facility] 2048 [place] [address] Lab results Social History Tobacco Use Types Packs/Day Years [...] place to sleep or slept in a longterm (including now)? No 06/24/2022 Area Deprivation Index Answer Date Oscar rded National Score (1-100), lower number is lower ri sk 89 08/09/2022 State Score (1-10), lower number is lower risk 8 08/09/2022 Data from: https://www.neighborhoodatlas.medicine.[facility].edu/. Last address used for calculation [address] 08/09/2022 Sex and Gender Information Value Date Recorded Sex Assigned at Not on file Legal Sex Male 9:36 AM EST Gender Identity Not on file Sexual Orientation Not on file documented as of this encounter Plan of Treatment Upcoming Encounters Date Type Department Care Team (Latest Contact Info) Description 12/26/2024 4:30 PM EDT [facility] Gastroenterology [address] [address] Per Andres MD, PhD 9507 [place] [address] Follow Up 12/30/2024 12:45 PM EDT Appointment Cardiology [address] [facility] [place] [address] DEVICE CHECK FOR MRI CLEARENCE 12/30/2024 2:10 PM EDT Appointment MRI Q [address] [place] [address] DUE TO PT IMPLANT- IF APPT NEEDS TO BE RESCHEDULED IT MUST BE SENT TO THE FOLLOWING STAFF MESSAGE ADDRESS: IMAGING IMPLANTS [[id number]] ICD approved to schedule by . 01/28/2025 11:00 AM EST Appointment [facility] [place] Scan [address] [place] [address] Crohn's disease with complication, unspecified gastrointestinal tract location (HCC) [K50.919] 01/28/2025 12:30 PM EST Appointment [facility] [place] Scan [address] [place] [address] Crohn's disease with complication, unspecified gastrointestinal tract location (HCC) [K50.919] 02/17/2025 1:30 PM EST Office Visit Vascular Medicine 9[address] [place] [address] Coronary artery calcification; Aortic root dilation 02/17/2025 2:45 PM EST Office Visit Preventive Cardiology [address] [place] [id number] Mary Fatima, ENTRY LEVEL SALES REPRESENTATIVE.STEAM AND POWER SUPERVISOR [address] [place] [address] Coronary artery calcification; Aortic root dilation documented as of this encounter Visit Diagnoses Not on filedocumented in this encounter Care Teams Mechanism Inspector Relationship Specialty Start Date End Date Shade Leon [address] [place], [place] [id number] PCP - General 06/22/00 Damir Witt MD [address] [place] [address] Primary Staff Physician Cardiology 12/13/22 documented as of this encounter
--- OUTSIDE RECORDS SUMMARY | 2024-12-16 10:58 | XMS_ITS | Encounter Summary ---
Author Organization [facility] Address [address] [place] [address] Care Team Providers Care Loader Semiconductor Dies Name Role Phone Edward Shadejodie Fritz Primary Care Provider [phone]- [phone] Damir Witt MD Unavailable [phone] Source Comments In the event this information is protected by the Federal Confidentiality of Alcohol and Drug AbusePatient Records regulations: The Federal rules restrict any use of the information to criminally investigate or prosecute any alcohol or drug abuse patient.[facility] Encounter Details Date Type Department Care Team (Late st Contact Info) Description 09/27/2022 Patient Msg Gastroenterology [address] [place] [id number] Per Andres MD, PhD [address] [place] [address] Test results Social History Tobacco Use Types Packs/Day [...] place to sleep or slept in a detention (including now)? No 06/24/2022 Area Deprivation Index Answer Date Oscar rded National Score (1-100), lower number is lower ri sk 89 08/09/2022 State Score (1-10), lower number is lower risk 8 08/09/2022 Data from: https://www.neighborhoodatlas.medicine.[facility].edu/. Last address used for calculation [address] 08/09/2022 Sex and Gender Information Value Date Recorded Sex Assigned at Not on file Legal Sex Male 9:36 AM EST Gender Identity Not on file Sexual Orientation Not on file documented as of this encounter Plan of Treatment Upcoming Encounters Date Type Department Care Team (Latest Contact Info) Description 12/26/2024 4:30 PM EDT [facility] Gastroenterology [address] [address] Per Andres MD, PhD [address] [place], [place] [phone] Follow Up 12/30/2024 12:45 PM EDT Appointment Cardiology 9[address] [place] [address] DEVICE CHECK FOR MRI CLEARENCE 12/30/2024 2:10 PM EDT Appointment MRI Q [address] [address] DUE TO PT IMPLANT- IF APPT NEEDS TO BE RESCHEDULED IT MUST BE SENT TO THE FOLLOWING STAFF MESSAGE ADDRESS: IMAGING IMPLANTS [[id number]] ICD approved to schedule by . 01/28/2025 11:[address] [facility] [place] Scan [address] [place] [address] Crohn's disease with complication, unspecified gastrointestinal tract location (HCC) [K50.919] 01/28/2025 12:[address] [facility] [place] Scan [address] [place] [address] Crohn's disease with complication, unspecified gastrointestinal tract location (HCC) [K50.919] 02/17/2025 1:30 PM EST Office Visit Vascular Medicine 9300 [place] [address] Coronary artery calcification; Aortic root dilation 02/17/2025 2:45 PM EST Office Visit Preventive Cardiology 9[address] [place] [address] Mary Fatima, FITTER HAND.BAG FILLER MACHINE OPERATOR [address] [place] [address] Coronary artery calcification; Aortic root dilation documented as of this encounter Visit Diagnoses Not on filedocumented in this encounter Care Teams Loader Semiconductor Dies Relationship Specialty Start Date End Date Shade Leon 1[address] [place] [address] PCP - General 06/22/00 Damir Witt MD [address] [place] [address] Primary Staff Physician Cardiology 12/13/22 documented as of this encounter
--- OUTSIDE RECORDS SUMMARY | 2024-12-16 10:58 | XMS_ITS | Encounter Summary ---
Author Organization [facility] Address [address] [place] [address] Care Team Providers Care Operational Meteorologist Name Role Phone Shade Leon Primary Care Provider [phone]- [phone] Damir Witt MD Unavailable [phone] Source Comments In the event this information is protected by the Federal Confidentiality of Alcohol and Drug AbusePatient Records regulations: The Federal rules restrict any use of the information to criminally investigate or prosecute any alcohol or drug abuse patient.[facility] Encounter Details Date Type Department Care Team (Late st Contact Info) Description 10/11/2022 Patient Msg Colorectal Surgery [address] [place] [phone] Provider, Ccf Testing to be scheduled Social History Tobacco Use Types Packs/Day Years [...] place to sleep or slept in a long term (including now)? No 06/24/2022 Area Deprivation Index Answer Date Oscar rded National Score (1-100), lower number is lower ri sk 89 08/09/2022 State Score (1-10), lower number is lower risk 8 08/09/2022 Data from: https://www.neighborhoodatlas.medicine.[facility].edu/. Last address used for calculation [...] Contact Info) Description 12/26/2024 4:30 PM EDT [facility] Gastroenterology [address] [address] Per Andres MD, PhD [address] [place] [address] Follow Up 12/30/2024 12:45 PM EDT Appointment Cardiology [address] [place] [id number] DEVICE CHECK FOR MRI CLEARENCE 12/30/2024 2:10 PM EDT Appointment MRI Q [address] [place] [address] DUE TO PT IMPLANT- IF APPT NEEDS TO BE RESCHEDULED IT MUST BE SENT TO THE FOLLOWING STAFF MESSAGE ADDRESS: IMAGING IMPLANTS [[id number]] ICD approved to schedule by . 01/28/2025 11:00 AM EST Appointment [facility] [place] Scan [address] [place] [address] Crohn's disease with complication, unspecified gastrointestinal tract location (HCC) [K50.919] 01/28/2025 12:30 PM EST Appointment [facility] [place] Scan [address] [place] [address] Crohn's disease with complication, unspecified gastrointestinal tract location (HCC) [K50.919] 02/17/2025 1:30 PM EST Office Visit Vascular Medicine 9300 [place] [address] Coronary artery calcification; Aortic root dilation 02/17/2025 2:45 PM EST Office Visit Preventive Cardiology 9[address] [place] [address] Mary Fatima, GOVERNMENT SERVICE EXECUTIVE.COST ESTIMATOR [address] [place] [address] Coronary artery calcification; Aortic root dilation documented as of this encounter Visit Diagnoses Not on filedocumented in this encounter Care Teams Operational Meteorologist Relationship Specialty Start Date End Date Shade Leon [address] [place] [address] PCP - General 06/22/00 Damir Witt MD [address] [place] [address] Primary Staff Physician Cardiology 12/13/22 documented as of this encounter
--- OUTSIDE RECORDS SUMMARY | 2024-12-16 10:58 | XMS_ITS | Encounter Summary ---
Author Organization [facility] Address [address] [place] [address] Care Team Providers Care Tanning Solution Maker Name Role Phone Edward Shadejodie Fritz Primary Care Provider [phone]- [phone] Damir Witt MD Unavailable [phone] Source Comments In the event this information is protected by the Federal Confidentiality of Alcohol and Drug AbusePatient Records regulations: The Federal rules restrict any use of the information to criminally investigate or prosecute any alcohol or drug abuse patient.[facility] Encounter Details Date Type Department Care Team (Late st Contact Info) Description 09/27/2022 Get Medical Advice Gastroenterology [address] [place] [address] Per Andres MD, PhD [address] [place] [address] CT Social History Tobacco Use Types Packs/Day Years [...] place to sleep or slept in a alf (including now)? No 06/24/2022 Area Deprivation Index Answer Date Oscar rded National Score (1-100), lower number is lower ri sk 89 08/09/2022 State Score (1-10), lower number is lower risk 8 08/09/2022 Data from: https://www.neighborhoodatlas.medicine.[facility].edu/. Last address used for calculation [address] 08/09/2022 Sex and Gender Information Value Date Recorded Sex Assigned at Not on file Legal Sex Male 9:36 AM EST Gender Identity Not on file Sexual Orientation Not on file documented as of this encounter Plan of Treatment Upcoming Encounters Date Type Department Care Team (Latest Contact Info) Description 12/26/2024 4:30 PM EDT [facility] Gastroenterology [address] [address] Per Andres MD, PhD [address] [place] [address] Follow Up 12/30/2024 12:45 PM EDT Appointment Cardiology 9300 [place] [address] DEVICE CHECK FOR MRI CLEARENCE 12/30/2024 2:10 PM EDT Appointment MRI Q [address] [address] DUE TO PT IMPLANT- IF APPT NEEDS TO BE RESCHEDULED IT MUST BE SENT TO THE FOLLOWING STAFF MESSAGE ADDRESS: IMAGING IMPLANTS [[id number]] ICD approved to schedule by . 01/28/2025 11:00 AM EST Appointment [facility] [place] Scan [address] [place] [address] Crohn's disease with complication, unspecified gastrointestinal tract location (HCC) [K50.919] 01/28/2025 12:30 PM EST Appointment [facility] [place] Scan [address] [place] [address] Crohn's disease with complication, unspecified gastrointestinal tract location (HCC) [K50.919] 02/17/2025 1:30 PM EST Office Visit Vascular Medicine 9[address] [place] [address] Coronary artery calcification; Aortic root dilation 02/17/2025 2:45 PM EST Office Visit Preventive Cardiology [address] [place] [address] Mary Fatima, ALIGNMENT TECHNICIAN.DISTRICT COMMERCIAL SUPERINTENDENT [address] [place] [address] Coronary artery calcification; Aortic root dilation documented as of this encounter Visit Diagnoses Not on filedocumented in this encounter Care Teams Tanning Solution Maker Relationship Specialty Start Date End Date Shade Leon [address] [place] [address] PCP - General 06/22/00 Damir Witt MD [address] [place] [address] Primary Staff Physician Cardiology 12/13/22 documented as of this encounter
--- OUTSIDE RECORDS SUMMARY | 2024-12-16 10:58 | XMS_ITS | Encounter Summary ---
Author Organization [facility] Address [address] [place] [address] Care Team Providers Care Pcb Designer Name Role Phone Shade Leon Primary Care Provider [phone]- [phone] Damir Witt MD Unavailable [phone] Source Comments In the event this information is protected by the Federal Confidentiality of Alcohol and Drug AbusePatient Records regulations: The Federal rules restrict any use of the information to criminally investigate or prosecute any alcohol or drug abuse patient.[facility] Encounter Details Date Type Department Care Team (Late st Contact Info) Description 10/11/2022 Patient Msg [facility] [address] [place] [address] Provider, Ccf Important Instructions reminder regarding your upcoming Breath Test Please follow Directions carefully in order to avoid your procedure being cancelled or rescheduled. Thank you. Social History Tobacco Use Types Packs/Day Years [...] place to sleep or slept in a halfway (including now)? No 06/24/2022 Area Deprivation Index Answer Date Oscar rded National Score (1-100), lower number is lower ri sk 89 08/09/2022 State Score (1-10), lower number is lower risk 8 08/09/2022 Data from: https://www.neighborhoodatlas.medicine.[facility].edu/. Last address used for calculation [address] 08/09/2022 Sex and Gender Information Value Date Recorded Sex Assigned at Not on file Legal Sex Male 9:36 AM EST Gender Identity Not on file Sexual Orientation Not on file documented as of this encounter Plan of Treatment Upcoming Encounters Date Type Department Care Team (Latest Contact Info) Description 12/26/2024 4:30 PM EDT [facility] Gastroenterology [address] [address] Per Andres MD, PhD [address] [place], [place] [phone] Follow Up 12/30/2024 12:45 PM EDT Appointment Cardiology 9300 [place] [address] DEVICE CHECK FOR MRI CLEARENCE 12/30/2024 2:10 PM EDT Appointment MRI Q [address] [address] DUE TO PT IMPLANT- IF APPT NEEDS TO BE RESCHEDULED IT MUST BE SENT TO THE FOLLOWING STAFF MESSAGE ADDRESS: IMAGING IMPLANTS [[id number]] ICD approved to schedule by . 01/28/2025 11:00 AM EST Appointment [facility] [place] Scan [address] [place] [address] Crohn's disease with complication, unspecified gastrointestinal tract location (HCC) [K50.919] 01/28/2025 12:30 PM EST Appointment [facility] [place] Scan [address] [place] [address] Crohn's disease with complication, unspecified gastrointestinal tract location (HCC) [K50.919] 02/17/2025 1:30 PM EST Office Visit Vascular Medicine 9300 [place] [address] Coronary artery calcification; Aortic root dilation 02/17/2025 2:45 PM EST Office Visit Preventive Cardiology 9300 [place] [address] Mary Fatima, MARINE ARCHITECT.POLY AREA SUPERVISOR [address] [place] [address] Coronary artery calcification; Aortic root dilation documented as of this encounter Visit Diagnoses Not on filedocumented in this encounter Care Teams Pcb Designer Relationship Specialty Start Date End Date Shade Leon [address] [place] [address] PCP - General 06/22/00 Damir Witt MD [address] [place] [address] Primary Staff Physician Cardiology 12/13/22 documented as of this encounter
--- OUTSIDE RECORDS SUMMARY | 2024-12-16 10:58 | XMS_ITS | Encounter Summary ---
Author Organization [facility] Address [address] [place] [address] Care Team Providers Care Supervisor Tumblers Name Role Phone Edward Shadejodie Menjivarmond Primary Care Provider [phone]- [phone] Damir Witt MD Unavailable [phone] Source Comments In the event this information is protected by the Federal Confidentiality of Alcohol and Drug AbusePatient Records regulations: The Federal rules restrict any use of the information to criminally investigate or prosecute any alcohol or drug abuse patient.[facility] Encounter Details Date Type Department Care Team (Late st Contact Info) Description 11/29/2022 Patient Msg Gastroenterology [address] [place] [phone] Per Andres MD, PhD [address] [place] [address] Blood tests Social History Tobacco Use Types Packs/Day Years [...] place to sleep or slept in a custodial (including now)? No 06/24/2022 Area Deprivation Index Answer Date Oscar rded National Score (1-100), lower number is lower ri sk 89 08/09/2022 State Score (1-10), lower number is lower risk 8 08/09/2022 Data from: https://www.neighborhoodatlas.medicine.[facility].edu/. Last address used for calculation [...] Contact Info) Description 12/26/2024 4:30 PM EDT [facility] Gastroenterology [address] [address] Per Andres MD, PhD [address] [place] [address] Follow Up 12/30/2024 12:45 PM EDT Appointment Cardiology 9300 [place] [address] DEVICE CHECK FOR MRI CLEARENCE 12/30/2024 2:10 PM EDT Appointment MRI Q [address] [place] [address] DUE TO PT IMPLANT- IF APPT NEEDS TO BE RESCHEDULED IT MUST BE SENT TO THE FOLLOWING STAFF MESSAGE ADDRESS: IMAGING IMPLANTS [[id number]] ICD approved to schedule by . 01/28/2025 11:00 AM EST Appointment [facility] [place] Scan [address] [place] [address] Crohn's disease with complication, unspecified gastrointestinal tract location (HCC) [K50.919] 01/28/2025 12:30 PM EST Appointment [facility] [place] Scan [address] [place] [address] Crohn's disease with complication, unspecified gastrointestinal tract location (HCC) [K50.919] 02/17/2025 1:30 PM EST Office Visit Vascular Medicine 9300 [place] [address] Coronary artery calcification; Aortic root dilation 02/17/2025 2:45 PM EST Office Visit Preventive Cardiology 9[address] [place] [address] Mary Fatima, SPECIAL DELIVERY MESSENGER.PAINT GRINDER [address] [place] [address] Coronary artery calcification; Aortic root dilation documented as of this encounter Visit Diagnoses Not on filedocumented in this encounter Care Teams Supervisor Tumblers Relationship Specialty Start Date End Date Shade Leon 1[address] [place] [address] PCP - General 06/22/00 Damir Witt MD [address]00 [place] [address] Primary Staff Physician Cardiology 12/13/22 documented as of this encounter
--- OUTSIDE RECORDS SUMMARY | 2024-12-16 10:58 | XMS_ITS | Encounter Summary ---
Author Organization [facility] Address [address] [place] [address] Care Team Providers Care Emery Wheel Molder Name Role Phone Shade Leon Primary Care Provider [phone]- [phone] Damir Witt MD Unavailable [phone] Source Comments In the event this information is protected by the Federal Confidentiality of Alcohol and Drug AbusePatient Records regulations: The Federal rules restrict any use of the information to criminally investigate or prosecute any alcohol or drug abuse patient.[facility] Encounter Details Date Type Department Care Team (Late st Contact Info) Description 11/16/2022 Get Medical Advice Cardiology [address] [place] [address] Damir Witt MD [address] [place] [address] Zio patch Social History Tobacco Use Types Packs/Day Years [...] place to sleep or slept in a correction (including now)? No 06/24/2022 Area Deprivation Index Answer Date Oscar rded National Score (1-100), lower number is lower ri sk 89 08/09/2022 State Score (1-10), lower number is lower risk 8 08/09/2022 Data from: https://www.neighborhoodatlas.medicine.[facility].edu/. Last address used for calculation [address] 08/09/2022 Sex and Gender Information Value Date Recorded Sex Assigned at Not on file Legal Sex Male 9:36 AM EST Gender Identity Not on file Sexual Orientation Not on file documented as of this encounter Plan of Treatment Upcoming Encounters Date Type Department Care Team (Latest Contact Info) Description 12/26/2024 4:30 PM EDT [facility] Gastroenterology [address] [address] Per Andres MD, PhD [address] [place], [place] [id number] Follow Up 12/30/2024 12:45 PM EDT Appointment Cardiology [address] [place] [address] DEVICE CHECK FOR MRI CLEARENCE 12/30/2024 2:10 PM EDT Appointment MRI Q [address] [place] [address] DUE TO PT IMPLANT- IF APPT NEEDS TO BE RESCHEDULED IT MUST BE SENT TO THE FOLLOWING STAFF MESSAGE ADDRESS: IMAGING IMPLANTS [[id number]] ICD approved to schedule by . 01/28/2025 11:00 AM EST Appointment [facility] [place] Scan [address] [place] [address] Crohn's disease with complication, unspecified gastrointestinal tract location (HCC) [K50.919] 01/28/2025 12:30 PM EST Appointment [facility] [place] Scan [address] [place] [address] Crohn's disease with complication, unspecified gastrointestinal tract location (HCC) [K50.919] 02/17/2025 1:30 PM EST Office Visit Vascular Medicine [address] [place] [address] Coronary artery calcification; Aortic root dilation 02/17/2025 2:45 PM EST Office Visit Preventive Cardiology [address] [place] [address] Mary Fatima, NURSES' AIDE.HEMATOLOGY SUPERVISOR [address] [place] [address] Coronary artery calcification; Aortic root dilation documented as of this encounter Visit Diagnoses Not on filedocumented in this encounter Care Teams Emery Wheel Molder Relationship Specialty Start Date End Date Shade Leon [address] [place] [address] PCP - General 06/22/00 Damir Witt MD [address] [place] [address] Primary Staff Physician Cardiology 12/13/22 documented as of this encounter
--- OUTSIDE RECORDS SUMMARY | 2024-12-16 10:58 | XMS_ITS | Clinical Summary ---
Author Organization [email or web address] Address [id number] [address] [place] [address] Care Team Providers Care Tool Dispatcher Name Role Phone Madi Leon DO Primary Care Provider [phone] Social History Tobacco Use Types Packs/Day Years Used Date Smoking Tobacco: Never Assessed Childcare Answer Date Recorded Childcare Unknown 08/22/2018 Employment Answer Date Recorded Employment Unknown 08/22/2018 Purpose - Life Answer Date Recorded Purpose and direction in life Unknown Sex and Gender Information Value Date Recorded Sex Assigned at Not on file Legal Sex Male 11:33 AM EDT Gender Identity Not on file Sexual Orientation Not on file Plan of Treatment Health Maintenance Due Date Last Done Comments Depression Screening 1974 Tobacco Screening 1974 Adult BMI Screening 1980 DTaP,Tdap and Td Vaccines (1 - Tdap) 1981 Zoster (Shingles) Vaccine (1 of 2) 2012 Influenza Vaccine 11/11/2024 12/11/2013, , 01/06/2008, Additional history exists Medical Devices Not on file Insurance [facility] Care Teams Tool Dispatcher Relationship Specialty Start Date End Date Madi Leon DO [address] [place] [phone] PCP - General 08/24/12
--- OUTSIDE RECORDS SUMMARY | 2024-12-16 10:58 | XMS_ITS | Encounter Summary ---
Author Organization [facility] Address [address] [place] [address] Care Team Providers Care Poster Name Role Phone Edward Shadejodie Fritz Primary Care Provider [phone]- [phone] Damir Witt MD Unavailable [phone] Source Comments In the event this information is protected by the Federal Confidentiality of Alcohol and Drug AbusePatient Records regulations: The Federal rules restrict any use of the information to criminally investigate or prosecute any alcohol or drug abuse patient.[facility] Encounter Details Date Type Department Care Team (Late st Contact Info) Description 11/22/2022 Get Medical Advice Gastroenterology [address] [place] [address] Per Andres MD, PhD [address] [place] [address] Prednisone Social History Tobacco Use Types Packs/Day Years [...] place to sleep or slept in a long-term (including now)? No 06/24/2022 Area Deprivation Index Answer Date Oscar rded National Score (1-100), lower number is lower ri sk 89 08/09/2022 State Score (1-10), lower number is lower risk 8 08/09/2022 Data from: https://www.neighborhoodatlas.medicine.[facility].edu/. Last address used for calculation [...] Contact Info) Description 12/26/2024 4:30 PM EDT [facility] Gastroenterology [address] [address] Per Andres MD, PhD [address] [place] [address] Follow Up 12/30/2024 12:45 PM EDT Appointment Cardiology [address] [place] [address] DEVICE CHECK FOR MRI CLEARENCE 12/30/2024 2:10 PM EDT Appointment MRI Q [address] [place] [address] DUE TO PT IMPLANT- IF APPT NEEDS TO BE RESCHEDULED IT MUST BE SENT TO THE FOLLOWING STAFF MESSAGE ADDRESS: IMAGING IMPLANTS [[id number]] ICD approved to schedule by . 01/28/2025 11:00 AM EST Appointment [facility] [place] Scan [address] [place] [address] Crohn's disease with complication, unspecified gastrointestinal tract location (HCC) [K50.919] 01/28/2025 12:30 PM EST Appointment [facility] [place] Scan [address] [place] [address] Crohn's disease with complication, unspecified gastrointestinal tract location (HCC) [K50.919] 02/17/2025 1:30 PM EST Office Visit Vascular Medicine [address] [place] [address] Coronary artery calcification; Aortic root dilation 02/17/2025 2:45 PM EST Office Visit Preventive Cardiology [address] [place] [address] Mary Fatima, MACHINIST FIRST CLASS.MARKETING BUDGET ANALYST [address] [place] [address] Coronary artery calcification; Aortic root dilation documented as of this encounter Visit Diagnoses Not on filedocumented in this encounter Care Teams Poster Relationship Specialty Start Date End Date Shade Leon [address] [place] [address] PCP - General 06/22/00 Damir Witt MD [address] [place] [address] Primary Staff Physician Cardiology 12/13/22 documented as of this encounter
--- OUTSIDE RECORDS SUMMARY | 2024-12-16 10:59 | XMS_ITS | Encounter Summary ---
Author Organization [facility] Address [address] [place] [address] Care Team Providers Care Chainstitch Pants Outseamer Name Role Phone Edward Shadejodie Fritz Primary Care Provider [phone] Damir Witt MD Unavailable [phone] Source Comments In the event this information is protected by the Federal Confidentiality of Alcohol and Drug AbusePatient Records regulations: The Federal rules restrict any use of the information to criminally investigate or prosecute any alcohol or drug abuse patient.[facility] Encounter Details Date Type Department Care Team (Late st Contact Info) Description 09/26/2022 Patient Msg Gastroenterology [address] [place] [phone] Per Andres MD, PhD [address] [place] [address] Test results Social History Tobacco [...] place to sleep or slept in a retirement (including now)? No 06/24/2022 Area Deprivation Index Answer Date Oscar rded National Score (1-100), lower number is lower ri sk 89 08/09/2022 State Score (1-10), lower number is lower risk 8 08/09/2022 Data from: https://www.neighborhoodatlas.medicine.[facility].edu/. Last address used for calculation [...] Contact Info) Description 12/26/2024 4:30 PM EDT [facility] Gastroenterology [address] [address] Per Andres MD, PhD [address] [place], [place] [id number] Follow Up 12/30/2024 12:45 PM EDT Appointment Cardiology [address] [place] [address] DEVICE CHECK FOR MRI CLEARENCE 12/30/2024 2:10 PM EDT Appointment MRI Q [address] [address] DUE TO PT IMPLANT- IF APPT NEEDS TO BE RESCHEDULED IT MUST BE SENT TO THE FOLLOWING STAFF MESSAGE ADDRESS: IMAGING IMPLANTS [[id number]] ICD approved to schedule by . 01/28/2025 11:00 AM EST Appointment [facility] [place] Scan [address] [place] [address] Crohn's disease with complication, unspecified gastrointestinal tract location (HCC) [K50.919] 01/28/2025 12:30 PM EST Appointment [facility] [place] Scan [address] [place] [address] Crohn's disease with complication, unspecified gastrointestinal tract location (HCC) [K50.919] 02/17/2025 1:30 PM EST Office Visit Vascular Medicine [address] [place] [address] Coronary artery calcification; Aortic root dilation 02/17/2025 2:45 PM EST Office Visit Preventive Cardiology [address] [place] [address] Mary Fatima, HANGER OFF.VESSEL ENGINEER [address] [place] [address] Coronary artery calcification; Aortic root dilation documented as of this encounter Visit Diagnoses Not on filedocumented in this encounter Care Teams Chainstitch Pants Outseamer Relationship Specialty Start Date End Date Shade Leon [address] [place] [address] PCP - General 06/22/00 Damir Witt MD [address] [place] [address] Primary Staff Physician Cardiology 12/13/22 documented as of this encounter
--- OUTSIDE RECORDS SUMMARY | 2024-12-16 11:00 | XMS_ITS | Encounter Summary ---
Author Organization [facility] Address [address] [place] [address] Care Team Providers Care Cw Operator Name Role Phone Shade Leon Primary Care Provider [phone] Damir Witt MD Unavailable [phone] Source Comments In the event this information is protected by the Federal Confidentiality of Alcohol and Drug AbusePatient Records regulations: The Federal rules restrict any use of the information to criminally investigate or prosecute any alcohol or drug abuse patient.[facility] Encounter Details Date Type Department Care Team (Late st Contact Info) Description 12/19/2022 Get Medical Advice Cardiology [address] [place], [place] [id number] Provider, [facility] MRI Social History Tobacco Use Types Packs/Day Years [...] place to sleep or slept in a group home (including now)? No 06/24/2022 Area Deprivation Index Answer Date Oscar rded National Score (1-100), lower number is lower ri sk 89 08/09/2022 State Score (1-10), lower number is lower risk 8 08/09/2022 Data from: https://www.neighborhoodatlas.medicine.[facility].edu/. Last address used for calculation [...] Contact Info) Description 12/26/2024 4:30 PM EDT [facility] Gastroenterology [address] [address] Per Andres MD, PhD [address] [place] [address] Follow Up 12/30/2024 12:45 PM EDT Appointment Cardiology [address] [place] [phone] DEVICE CHECK FOR MRI CLEARENCE 12/30/2024 2:10 PM EDT Appointment MRI Q [address] [place] [address] DUE TO PT IMPLANT- IF APPT NEEDS TO BE RESCHEDULED IT MUST BE SENT TO THE FOLLOWING STAFF MESSAGE ADDRESS: IMAGING IMPLANTS [[id number]] ICD approved to schedule by . 01/28/2025 11:00 AM EST Appointment [facility] [place] Scan [address] [place] [address] Crohn's disease with complication, unspecified gastrointestinal tract location (HCC) [K50.919] 01/28/2025 12:30 PM EST Appointment [facility] [place] Scan [address] [place] [address] Crohn's disease with complication, unspecified gastrointestinal tract location (HCC) [K50.919] 02/17/2025 1:30 PM EST Office Visit Vascular Medicine [address] [place] [address] Coronary artery calcification; Aortic root dilation 02/17/2025 2:45 PM EST Office Visit Preventive Cardiology [address] [place] [address] Mary Fatima, BUSINESS APPLICATIONS ANALYST.PRODUCT SUPPORT REP [address] [place] [address] Coronary artery calcification; Aortic root dilation documented as of this encounter Visit Diagnoses Not on filedocumented in this encounter Care Teams Cw Operator Relationship Specialty Start Date End Date Shade Leon [address] [place] [address] PCP - General 06/22/00 Damir Witt MD [address] [place] [address] Primary Staff Physician Cardiology 12/13/22 documented as of this encounter
--- OUTSIDE RECORDS SUMMARY | 2024-12-16 11:00 | XMS_ITS | Encounter Summary ---
Author Organization [facility] Address [address] [place] [address] Care Team Providers Care Beater Head Name Role Phone Edward Shadejodie Fritz Primary Care Provider [phone] Damir Witt MD Unavailable [phone] Source Comments In the event this information is protected by the Federal Confidentiality of Alcohol and Drug AbusePatient Records regulations: The Federal rules restrict any use of the information to criminally investigate or prosecute any alcohol or drug abuse patient.[facility] Encounter Details Date Type Department Care Team (Late st Contact Info) Description 09/02/2022 Patient Msg Gastroenterology [address] [place] [phone] Per Andres MD, PhD [address] [place] [address] Potassium Social History Tobacco Use Types Packs/Day Years [...] place to sleep or slept in a senior living (including now)? No 06/24/2022 Area Deprivation Index Answer Date Oscar rded National Score (1-100), lower number is lower ri sk 89 08/09/2022 State Score (1-10), lower number is lower risk 8 08/09/2022 Data from: https://www.neighborhoodatlas.medicine.[facility].edu/. Last address used for calculation [address] [...] 4:30 PM EDT [facility] Gastroenterology [address] [address] Per Andres MD, PhD [address] [place] [address] Follow Up 12/30/2024 12:45 PM EDT Appointment Cardiology [address] [place] [address] DEVICE CHECK FOR MRI CLEARENCE 12/30/2024 2:10 PM EDT Appointment MRI Q [address] [address] DUE TO PT IMPLANT- IF APPT NEEDS TO BE RESCHEDULED IT MUST BE SENT TO THE FOLLOWING STAFF MESSAGE ADDRESS: IMAGING IMPLANTS [[id number]] ICD approved to schedule by . 01/28/2025 11:00 AM EST Appointment [facility] [place] Scan [address] [place] [address] Crohn's disease with complication, unspecified gastrointestinal tract location (HCC) [K50.919] 01/28/2025 12:30 PM EST Appointment [facility] [place] Scan [address] [place] [address] Crohn's disease with complication, unspecified gastrointestinal tract location (HCC) [K50.919] 02/17/2025 1:30 PM EST Office Visit Vascular Medicine [address] [place] [address] Coronary artery calcification; Aortic root dilation 02/17/2025 2:45 PM EST Office Visit Preventive Cardiology [address] [place] [address] Mary Fatima, SOCIAL SCIENCE RESEARCH ASSISTANT.PUBLICATION EDITOR [address] [place] [address] Coronary artery calcification; Aortic root dilation documented as of this encounter Visit Diagnoses Not on filedocumented in this encounter Care Teams Beater Head Relationship Specialty Start Date End Date Shade Leon [address] [place] [address] PCP - General 06/22/00 Damir Witt MD [address] [place] [address] Primary Staff Physician Cardiology 12/13/22 documented as of this encounter
--- OUTSIDE RECORDS SUMMARY | 2024-12-16 11:00 | XMS_ITS | Encounter Summary ---
Author Organization [facility] Address [address] [place] [address] Care Team Providers Care Canal Equipment Maintenance Supervisor Name Role Phone Edward Shadejodie Menjivarmond Primary Care Provider [phone] Damir Witt MD Unavailable [phone] Source Comments In the event this information is protected by the Federal Confidentiality of Alcohol and Drug AbusePatient Records regulations: The Federal rules restrict any use of the information to criminally investigate or prosecute any alcohol or drug abuse patient.[facility] Encounter Details Date Type Department Care Team (Late st Contact Info) Description 12/13/2022 Get Medical Advice Gastroenterology [address] [place] [address] Per Andres MD, PhD [address] [place] [address] [place] Social History Tobacco Use Types Packs/Day Years [...] is lower risk 8 08/09/2022 Data from: https://www.neighborhoodatlas.medicine.[facility].edu/. Last address used for calculation [address] 08/09/2022 Sex and Gender Information Value Date Recorded Sex Assigned at Not on file Legal Sex Male 9:36 AM EST Gender Identity Not on file Sexual Orientation Not on file documented as of this encounter Plan of Treatment Upcoming Encounters Date Type Department Care Team (Latest Contact Info) Description 12/26/2024 4:30 PM EDT [facility] Gastroenterology [address] [address] Per Andres MD, PhD [address] [place], [place] [phone] Follow Up 12/30/2024 12:45 PM EDT Appointment Cardiology [address] [place] [address] DEVICE CHECK FOR MRI CLEARENCE 12/30/2024 2:10 PM EDT Appointment MRI Q [address] [address] DUE TO PT IMPLANT- IF APPT NEEDS TO BE RESCHEDULED IT MUST BE SENT TO THE FOLLOWING STAFF MESSAGE ADDRESS: IMAGING IMPLANTS [[id number]] ICD approved to schedule by . 01/28/2025 11:00 AM EST Appointment [facility] [place] Scan [address] [place] [address] Crohn's disease with complication, unspecified gastrointestinal tract location (HCC) [K50.919] 01/28/2025 12:30 PM EST Appointment [facility] [place] Scan [address] [place] [address] Crohn's disease with complication, unspecified gastrointestinal tract location (HCC) [K50.919] 02/17/2025 1:30 PM EST Office Visit Vascular Medicine [address] [place] [address] Coronary artery calcification; Aortic root dilation 02/17/2025 2:45 PM EST Office Visit Preventive Cardiology [address] [place] [address] Mary Fatima, NATURALIZATION EXAMINER.FRUIT OR NUT FARM WORKER [address] [place] [address] Coronary artery calcification; Aortic root dilation documented as of this encounter Visit Diagnoses Not on filedocumented in this encounter Care Teams Canal Equipment Maintenance Supervisor Relationship Specialty Start Date End Date Shade Leon [address] [place] [address] PCP - General 06/22/00 Damir Witt MD [address] [place] [address] Primary Staff Physician Cardiology 12/13/22 documented as of this encounter
--- OUTSIDE RECORDS SUMMARY | 2024-12-16 11:00 | XMS_ITS | Encounter Summary ---
Author Organization [facility] Address [address] [place] [address] Care Team Providers Care Movers Name Role Phone Madi Leon DO Primary Care Provider [phone] Encounter Details Date Type Department Care Team (Latest Contact Info) Description 12/10/2024 Travel Social History Tobacco Use Types Packs/Day Years [...] Description 11/18/2025 8:40 AM EDT Office Visit [facility] [address] [facility] [address] [place] [address] Skylar Jacob, GAS OR WATER METER INSTALLER-SHOE REPAIR SUPERVISOR [address] [facility] [address] [place] [address] documented as of this encounter Visit Diagnoses Not on filedocumented in this encounter Care Teams Movers Relationship Specialty Start Date End Date Madi Leon DO [address] [facility] [place] [address] PCP - General Internal Medicine 09/19/22 documented as of this encounter
--- OUTSIDE RECORDS SUMMARY | 2024-12-16 11:00 | XMS_ITS | Encounter Summary ---
Author Organization [facility] Address [address] [place] [address] Care Team Providers Care Certified Juvenile Probation Officer Name Role Phone Edward Shadejodie Menjivarmond Primary Care Provider [phone] Damir Witt MD Unavailable [phone] Source Comments In the event this information is protected by the Federal Confidentiality of Alcohol and Drug AbusePatient Records regulations: The Federal rules restrict any use of the information to criminally investigate or prosecute any alcohol or drug abuse patient.[facility] Encounter Details Date Type Department Care Team (Late st Contact Info) Description 12/18/2022 Get Medical Advice Gastroenterology [address] [place] [address] Per Andres MD, PhD [address] [place] [address] Constantine paperwork Social History Tobacco Use Types Packs/Day Years [...] is lower risk 8 08/09/2022 Data from: https://www.neighborhoodatlas.medicine.[facility].edu/. Last address used for calculation [address] 08/09/2022 Sex and Gender Information Value Date Recorded Sex Assigned at Not on file Legal Sex Male 9:36 AM EST Gender Identity Not on file Sexual Orientation Not on file documented as of this encounter Plan of Treatment Upcoming Encounters Date Type Department Care Team (Latest Contact Info) Description 12/26/2024 4:30 PM EDT [facility] Gastroenterology [address] [address] Per Andres MD, PhD [address] [place] [address] Follow Up 12/30/2024 12:45 PM EDT Appointment Cardiology [address] [place] [address] DEVICE CHECK FOR MRI CLEARENCE 12/30/2024 2:10 PM EDT Appointment MRI Q [address] [address] DUE TO PT IMPLANT- IF APPT NEEDS TO BE RESCHEDULED IT MUST BE SENT TO THE FOLLOWING STAFF MESSAGE ADDRESS: IMAGING IMPLANTS [[id number]] ICD approved to schedule by . 01/28/2025 11:00 AM EST Appointment [facility] [place] Scan [address] [place] [address] Crohn's disease with complication, unspecified gastrointestinal tract location (HCC) [K50.919] 01/28/2025 12:30 PM EST Appointment [facility] [place] Scan [address] [place] [address] Crohn's disease with complication, unspecified gastrointestinal tract location (HCC) [K50.919] 02/17/2025 1:30 PM EST Office Visit Vascular Medicine [address] [place] [address] Coronary artery calcification; Aortic root dilation 02/17/2025 2:45 PM EST Office Visit Preventive Cardiology [address] [place] [address] Mary Fatima, PRESIDENT ERGONOMIC CONSULTING.INSULATION APPLICATOR [address] [place] [address] Coronary artery calcification; Aortic root dilation documented as of this encounter Visit Diagnoses Not on filedocumented in this encounter Care Teams Certified Juvenile Probation Officer Relationship Specialty Start Date End Date Shade Leon [address] [place] [address] PCP - General 06/22/00 Damir Witt MD [address] [place] [address] Primary Staff Physician Cardiology 12/13/22 documented as of this encounter
--- OUTSIDE RECORDS SUMMARY | 2024-12-16 11:00 | XMS_ITS | Encounter Summary ---
Author Organization [facility] Address [address] [place] [address] Care Team Providers Care Supportability Engineer Name Role Phone Shade Leon Primary Care Provider [phone] Damir Witt MD Unavailable [phone] Source Comments In the event this information is protected by the Federal Confidentiality of Alcohol and Drug AbusePatient Records regulations: The Federal rules restrict any use of the information to criminally investigate or prosecute any alcohol or drug abuse patient.[facility] Encounter Details Date Type Department Care Team (Late st Contact Info) Description 09/08/2022 Patient Msg Colorectal Surgery [address] [id number] Provider, Ccf Provider Out Of Office - Appt Reschedule Social History Tobacco Use Types Packs/Day Years [...] place to sleep or slept in a intermediate (including now)? No 06/24/2022 Area Deprivation Index Answer Date Oscar rded National Score (1-100), lower number is lower ri sk 89 08/09/2022 State Score (1-10), lower number is lower risk 8 08/09/2022 Data from: https://www.neighborhoodatlas.medicine.[facility].edu/. Last address used for calculation [...] Contact Info) Description 12/26/2024 4:30 PM EDT [facility] Gastroenterology [address] [place] [address] Per Andres MD, PhD [address] [place], [place] [phone] Follow Up 12/30/2024 12:45 PM EDT Appointment Cardiology [address] [place] [address] DEVICE CHECK FOR MRI CLEARENCE 12/30/2024 2:10 PM EDT Appointment MRI Q [address] [place], [place] [address] DUE TO PT IMPLANT- IF APPT NEEDS TO BE RESCHEDULED IT MUST BE SENT TO THE FOLLOWING STAFF MESSAGE ADDRESS: IMAGING IMPLANTS [[id number]] ICD approved to schedule by . 01/28/2025 11:00 AM EST Appointment [facility] [place] Scan [address] [place] [address] Crohn's disease with complication, unspecified gastrointestinal tract location (HCC) [K50.919] 01/28/2025 12:30 PM EST Appointment [facility] [place] Scan [address] [place] [address] Crohn's disease with complication, unspecified gastrointestinal tract location (HCC) [K50.919] 02/17/2025 1:30 PM EST Office Visit Vascular Medicine [address] [place] [address] Coronary artery calcification; Aortic root dilation 02/17/2025 2:45 PM EST Office Visit Preventive Cardiology 9[address] [place] [address] Mary Fatima, FOOD EDITOR.CASTINGS TRIMMER [address] [place] [address] Coronary artery calcification; Aortic root dilation documented as of this encounter Visit Diagnoses Not on filedocumented in this encounter Care Teams Supportability Engineer Relationship Specialty Start Date End Date Shade Leon [address] [place] [address] PCP - General 06/22/00 Damir Witt MD [address] [place] [address] Primary Staff Physician Cardiology 12/13/22 documented as of this encounter
--- OUTSIDE RECORDS SUMMARY | 2024-12-16 11:00 | XMS_ITS | Encounter Summary ---
Author Organization [facility] Address [address] [place] [address] Care Team Providers Care Jailer/Training Officer Name Role Phone Shade Leon Primary Care Provider [phone]- [phone] Damir Witt MD Unavailable Source Comments In the event this information is protected by the Federal Confidentiality of Alcohol and Drug AbusePatient Records regulations: The Federal rules restrict any use of the information to criminally investigate or prosecute any alcohol or drug abuse patient.[facility] Encounter Details Date Type Department Care Team (Late st Contact Info) Description 08/09/2022 Patient Msg Gastroenterology [address] [phone] Provider, Ccf Nutrition Plan Social History Tobacco Use Types Packs/Day Years [...] Contact Info) Description 12/26/2024 4:30 PM EDT [facility] Gastroenterology [address] [address] Per Andres MD, PhD [address] [place] [address] Follow Up 12/30/2024 12:45 PM EDT Appointment Cardiology [address] [place] [address] DEVICE CHECK FOR MRI CLEARENCE 12/30/2024 2:10 PM EDT Appointment MRI Q [address] [address] DUE TO PT IMPLANT- IF APPT NEEDS TO BE RESCHEDULED IT MUST BE SENT TO THE FOLLOWING STAFF MESSAGE ADDRESS: IMAGING IMPLANTS [[id number]] ICD approved to schedule by . 01/28/2025 11:00 AM EST Appointment [facility] [place] [address] [place] [address] Crohn's disease with complication, unspecified gastrointestinal tract location (HCC) [K50.919] 01/28/2025 12:30 PM EST Appointment [facility] [place] [address] [place] [address] Crohn's disease with complication, unspecified gastrointestinal tract location (HCC) [K50.919] 02/17/2025 1:30 PM EST Office Visit Vascular Medicine [address] [place] [address] Coronary artery calcification; Aortic root dilation 02/17/2025 2:45 PM EST Office Visit Preventive Cardiology [address] [place] [address] Mary Fatima, PROCUREMENT INSPECTOR.HEAD CONCIERGE [address] [place] [address] Coronary artery calcification; Aortic root dilation documented as of this encounter Visit Diagnoses Not on filedocumented in this encounter Care Teams Jailer/Training Officer Relationship Specialty Start Date End Date Shade Leon [address] [place] [address] PCP - General 06/22/00 Damir Witt MD [address] [place] [address] Primary Staff Physician Cardiology 12/13/22 documented as of this encounter
--- OUTSIDE RECORDS SUMMARY | 2024-12-16 11:00 | XMS_ITS | Encounter Summary ---
Author Organization [facility] Address [address] [place] [address] Care Team Providers Care Brick Wheeler Name Role Phone Shade Leon Primary Care Provider [phone]- [phone] Damir Witt MD Unavailable [phone] Source Comments In the event this information is protected by the Federal Confidentiality of Alcohol and Drug AbusePatient Records regulations: The Federal rules restrict any use of the information to criminally investigate or prosecute any alcohol or drug abuse patient.[facility] Encounter Details Date Type Department Care Team (Late st Contact Info) Description 01/03/2023 Get Medical Advice Cardiology [address] [place], [place] [phone] Provider, Ccf Heart MRI Social History Tobacco [...] place to sleep or slept in a care home (including now)? No 06/24/2022 Area Deprivation Index Answer Date Oscar rded National Score (1-100), lower number is lower ri sk 89 08/09/2022 State Score (1-10), lower number is lower risk 8 08/09/2022 Data from: https://www.neighborhoodatlas.medicine.[facility].edu/. Last address used for calculation [address] 08/09/2022 Sex and Gender Information Value Date Recorded Sex Assigned at Not on file Legal Sex Male 9:36 AM EST Gender Identity Not on file Sexual Orientation Not on file documented as of this encounter Plan of Treatment Upcoming Encounters Date Type Department Care Team (Latest Contact Info) Description 12/26/2024 4:30 PM EDT [facility] Gastroenterology [address] [address] Per Andres MD, PhD [address] [place] [address] Follow Up 12/30/2024 12:45 PM EDT Appointment Cardiology [address] [place] [id number] DEVICE CHECK FOR MRI CLEARENCE 12/30/2024 2:10 PM EDT Appointment MRI Q [address] [place] [address] DUE TO PT IMPLANT- IF APPT NEEDS TO BE RESCHEDULED IT MUST BE SENT TO THE FOLLOWING STAFF MESSAGE ADDRESS: IMAGING IMPLANTS [[id number]] ICD approved to schedule by . 01/28/2025 11:00 AM EST Appointment [facility] [place] Scan [address] [place] [address] Crohn's disease with complication, unspecified gastrointestinal tract location (HCC) [K50.919] 01/28/2025 12:30 PM EST Appointment [facility] [place] Scan [address] [place] [address] Crohn's disease with complication, unspecified gastrointestinal tract location (HCC) [K50.919] 02/17/2025 1:30 PM EST Office Visit Vascular Medicine 9[address] [place] [address] Coronary artery calcification; Aortic root dilation 02/17/2025 2:45 PM EST Office Visit Preventive Cardiology [address] [place] [address] Mary Fatima, SUPERVISOR QUILTING.RECREATION CLERK [address] [place] [address] Coronary artery calcification; Aortic root dilation documented as of this encounter Visit Diagnoses Not on filedocumented in this encounter Care Teams Brick Wheeler Relationship Specialty Start Date End Date Shade Leon [address] [place] [address] PCP - General 06/22/00 Damir Witt MD [address] [place] [address] Primary Staff Physician Cardiology 12/13/22 documented as of this encounter
--- OUTSIDE RECORDS SUMMARY | 2024-12-16 11:00 | XMS_ITS | Clinical Summary ---
Author Organization [facility] Address [address] [facility], [address] [place] [address] Care Team Providers Care Assistant Librarian Name Role Phone Madi Leon DO Primary Care Provider [phone] Allergies Active Allergy Reactions Criticality Noted Date Comments Azathioprine 04/11/2017 Medications gabapentin (NEURONTIN) 100 MG capsule Take 1 capsule by mouth daily for 30 days.. 90 capsule 10/06/2017 Active Active Problems No known active problems Social History Tobacco Use Types Packs/Day Years Used Date Smoking Tobacco: Never Assessed Smokeless Tobacco: Never Sex and Gender Information Value Date Recorded Sex Assigned at Not on file Legal Sex Male 12:41 PM EDT Gender Identity Not on file Sexual Orientation Not on file Last Filed Vital Signs Vital Sign Reading Time Taken Comments Blood Pressure - - Pulse - - Temperature 36.4 C (97.6 F) 10/06/2017 10:21 AM EDT Respiratory Rate - - Oxygen Saturation - - Inhaled Oxygen Concentration - - Weight 92.5 kg (204 lb) 10/06/2017 10:21 AM EDT Height 195.6 cm (6' 5 ) 10/06/2017 10:21 AM EDT Body Mass Index 24.19 10/06/2017 10:21 AM EDT Plan of Treatment Not on file Care Teams Assistant Librarian Relationship Specialty Start Date End Date Madi Leon DO PCP - General 11/06/15
--- OUTSIDE RECORDS SUMMARY | 2024-12-16 11:00 | XMS_ITS | Encounter Summary ---
Author Organization [facility] Address [address] [place] [address] Care Team Providers Care Notch Grinder Name Role Phone Edward Shade Lam Primary Care Provider [phone] Damir Witt MD Unavailable Source Comments In the event this information is protected by the Federal Confidentiality of Alcohol and Drug AbusePatient Records regulations: The Federal rules restrict any use of the information to criminally investigate or prosecute any alcohol or drug abuse patient.[facility] Encounter Details Date Type Department Care Team (Late Contact Info) Description 09/02/2022 Patient Msg Gastroenterology [address] [place] [address] Anastasiia Blood, [facility] [address] [place] [address] Lab results Social History Tobacco Use Types [...] is lower risk 8 08/09/2022 Data from: https://www.neighborhoodatlas.medicine.[facility].edu/. Last address used for calculation [...] Contact Info) Description 12/26/2024 4:30 PM EDT [facility] Gastroenterology [address] [address] Per Andres MD, PhD [address] [place] [address] Follow Up 12/30/2024 12:45 PM EDT Appointment Card[facility] [address] [facility] [place] [address] DEVICE CHECK FOR MRI CLEARENCE 12/30/2024 2:10 PM EDT Appointment MRI Q [address] [place] [address] DUE TO PT IMPLANT- IF APPT NEEDS TO BE RESCHEDULED IT MUST BE SENT TO THE FOLLOWING STAFF MESSAGE ADDRESS: IMAGING IMPLANTS [[id number]] ICD approved to schedule by . 01/28/2025 11:00 AM EST Appointment [facility] [place] Scan [address] [place] [address] Crohn's disease with complication, unspecified gastrointestinal tract location (HCC) [K50.919] 01/28/2025 12:30 PM EST Appointment [facility] [place] Scan [address] [place] [address] Crohn's disease with complication, unspecified gastrointestinal tract location (HCC) [K50.919] 02/17/2025 1:30 PM EST Office Visit Vascular Medicine 9[address] [place] [address] Coronary artery calcification; Aortic root dilation 02/17/2025 2:45 PM EST Office Visit Preventive Cardiology [address] [place] [phone] Mary Fatima, LACTATION NURSE.NEON INSTALLER [address] [place] [address] Coronary artery calcification; Aortic root dilation documented as of this encounter Visit Diagnoses Not on filedocumented in this encounter Care Teams Notch Grinder Relationship Specialty Start Date End Date Shade Leon [address] [place], [place] [phone] PCP - General 06/22/00 Damir Witt MD [address] [place] [address] Primary Staff Physician Cardiology 12/13/22 documented as of this encounter
--- OUTSIDE RECORDS SUMMARY | 2024-12-16 11:00 | XMS_ITS | Encounter Summary ---
Author Organization [facility] Address [facility] [place] [address] Care Team Providers Care Repair Manager Name Role Phone Maynor Leonore Lam Primary Care Provider [phone]- [phone] Damir Witt MD Unavailable [phone] Source Comments In the event this information is protected by the Federal Confidentiality of Alcohol and Drug AbusePatient Records regulations: The Federal rules restrict any use of the information to criminally investigate or prosecute any alcohol or drug abuse patient.[facility] Encounter Details Date Type Department Care Team (Late st Contact Info) Description 07/16/2024 Patient [facility] -[address] [place] [address] Skylar Remy RPh At your next appointment, choose [facility] Social History Tobacco Use Types Packs/Day Years Used Date Smoking Tobacco: Never Passive Smoke Exposure: Never Smokeless Tobacco: Never Alcohol Use Standard Drinks/Week Comments Not Currently 0 (1 standard drink = 0.6 oz pur e alcohol) Overall Financial Resource Strain (CARDIA) Answe r Date Recorded How hard is it for you to pa y for the very basics like food, housing, medical care, and heating? Not hard at all 06/24/2022 PHQ-2 Answer Date Recorded PHQ-2 score 0 07/18/2023 Hunger Vital Sign Answer Date Recorded Within [...] place to sleep or slept in a [place] facility (including now)? No 06/24/2022 Area Deprivation Index Answer Date Oscar rded National Score (1-100), lower number is lower ri sk 89 08/09/2022 State Score (1-10), lower number is lower risk 8 08/09/2022 Data from: https://www.neighborhoodatlas.medicine.[facility].edu/. Last address used for calculation [address] 08/09/2022 Sex and Gender Information Value Date Recorded Sex Assigned at Not on file Legal Sex Male 9:36 AM EST Gender Identity Not on file Sexual Orientation Not on file documented as of this encounter Plan of Treatment Upcoming Encounters Date Type Department Care Team (Latest Contact Info) Description 12/26/2024 4:30 PM EDT [facility] Gastroenterology [address] [address] Per Andres MD, PhD 16[address] [place] [address] Follow Up 12/30/2024 12:45 PM EDT Appointment Cardiology [address] [place] [address] DEVICE CHECK FOR MRI CLEARENCE 12/30/2024 2:10 PM EDT Appointment MRI Q [address] [place] [address] DUE TO PT IMPLANT- IF APPT NEEDS TO BE RESCHEDULED IT MUST BE SENT TO THE FOLLOWING STAFF MESSAGE ADDRESS: IMAGING IMPLANTS [[id number]] ICD approved to schedule by . 01/28/2025 11:00 AM EST Appointment [facility] [place] [address] [place] [address] Crohn's disease with complication, unspecified gastrointestinal tract location (HCC) [K50.919] 01/28/2025 12:30 PM EST Appointment [facility] [place] Scan [address] [place] [address] Crohn's disease with complication, unspecified gastrointestinal tract location (HCC) [K50.919] 02/17/2025 1:30 PM EST Office Visit Vascular Medicine [address] [place] [address] Coronary artery calcification; Aortic root dilation 02/17/2025 2:45 PM EST Office Visit Preventive Cardiology [address] [place] [address] Mary Fatima, COFFERDAM CONSTRUCTION SUPERVISOR.RACECAR DRIVER [address] [place] [address] Coronary artery calcification; Aortic root dilation documented as of this encounter Goals Goal Patient Goal Type Associated Problems Recent Progress Patient-Stated? Author Blood Pressure < 130/80 Blood Pressure 126/70(2024 2:53 PM EDT) No Moriah Sullivan RN documented as of this encounter Visit Diagnoses Not on filedocumented in this encounter Care Teams Repair Manager Relationship Specialty Start Date End Date Shade Leon [address] [place] [address] PCP - General 06/22/00 Damir Witt MD [address] [place] [address] Primary Staff Physician Cardiology 12/13/22 documented as of this encounter
--- OUTSIDE RECORDS SUMMARY | 2024-12-16 11:00 | XMS_ITS | Encounter Summary ---
Author Organization [facility] Address [address] [place] [address] Care Team Providers Care Ambulatory Technologist Name Role Phone Madi Leon DO Primary Care Provider [phone] Encounter Details Date Type Department Care Team ([facility] Contact Info) Description 12/16/2024 Bamboo flowsheet [facility] [address] [facility] [address] [place] [address] Skylar Jacob SQUARING MACHINE OPERATOR-INSTRUMENT DESIGNER [address] [facility] [address] [place] [address] Social History Tobacco Use Types Packs/Day Years [...] Encounters Date Type Department Care Team (Late Contact Info) Description 11/18/2025 8:40 AM EDT Office Visit [facility] [address] [facility] [address] [facility] [address] [place] [address] Skylar Jacob SQUARING MACHINE OPERATOR-INSTRUMENT DESIGNER [address] [facility] [address] [place] [address] documented as of this encounter Visit Diagnoses Not on filedocumented in this encounter Care Teams Ambulatory Technologist Relationship Specialty Start Date End Date Madi Leon DO [address] [place] [address] PCP - General Internal Medicine 09/19/22 documented as of this encounter
--- OUTSIDE RECORDS SUMMARY | 2024-12-16 11:00 | XMS_ITS | Encounter Summary ---
Author Organization [facility] Address [address] [place] [address] Care Team Providers Care Public Bath Attendant Name Role Phone Shade Leon Primary Care Provider [phone]- [phone] Damir Witt MD Unavailable Source Comments In the event this information is protected by the Federal Confidentiality of Alcohol and Drug AbusePatient Records regulations: The Federal rules restrict any use of the information to criminally investigate or prosecute any alcohol or drug abuse patient.[facility] Encounter Details Date Type Department Care Team (Late st Contact Info) Description 10/26/2023 Get Medical Advice Cardiology [address] [employer], [place] [phone] Provider, Ccf [facility]bc Social History Tobacco Use Types Packs/Day Years [...] place to sleep or slept in a fpc (including now)? No 06/24/2022 Area Deprivation Index Answer Date Oscar rded National Score (1-100), lower number is lower ri sk 89 08/09/2022 State Score (1-10), lower number is lower risk 8 08/09/2022 Data from: https://www.neighborhoodatlas.medicine.[facility].edu/. Last address used for calculation [address] 08/09/2022 Sex and Gender Information Value Date Recorded Sex Assigned at Not on file Legal Sex Male 9:36 AM EST Gender Identity Not on file Sexual Orientation Not on file documented as of this encounter Plan of Treatment Upcoming Encounters Date Type Department Care Team (Latest Contact Info) Description 12/26/2024 4:30 PM EDT [facility] Gastroenterology [address] [place] [phone] Per Andres MD, PhD [address] [place], [place] [phone] Follow Up 12/30/2024 12:45 PM EDT Appointment Cardiology [address] [id number] DEVICE CHECK FOR MRI CLEARENCE 12/30/2024 2:10 PM EDT Appointment MRI Q [address] [place] [address] DUE TO PT IMPLANT- IF APPT NEEDS TO BE RESCHEDULED IT MUST BE SENT TO THE FOLLOWING STAFF MESSAGE ADDRESS: IMAGING IMPLANTS [[id number]] ICD approved to schedule by . 01/28/2025 11:00 AM EST Appointment [facility] [place] Scan [address] [place] [address] Crohn's disease with complication, unspecified gastrointestinal tract location (HCC) [K50.919] 01/28/2025 12:30 PM EST Appointment [facility] [place] Scan [address] [place] [address] Crohn's disease with complication, unspecified gastrointestinal tract location (HCC) [K50.919] 02/17/2025 1:30 PM EST Office Visit Vascular Medicine 9[address] [place] [address] Coronary artery calcification; Aortic root dilation 02/17/2025 2:45 PM EST Office Visit Preventive Cardiology [address] [place] [address] Mary Fatima, POST PRODUCTION ASSISTANT.PARTNERSHIP MARKETING MANAGER [address] [place] [address] Coronary artery calcification; Aortic root dilation documented as of this encounter Goals Goal Patient Goal Type Associated Problems Recent Progress Patient-Stated? Author Blood Pressure < 130/80 Blood Pressure 126/70(2024 2:53 PM EDT) No Moriah Sullivan, RN documented as of this encounter Visit Diagnoses Not on filedocumented in this encounter Care Teams Public Bath Attendant Relationship Specialty Start Date End Date Shade Leon [address] [place] [address] PCP - General 06/22/00 Damir Witt MD [address] [place] [address] Primary Staff Physician Cardiology 12/13/22 documented as of this encounter
--- OUTSIDE RECORDS SUMMARY | 2024-12-16 11:00 | XMS_ITS | Encounter Summary ---
Author Organization [facility] Address [address] [place] [address] Care Team Providers Care Senior Java Developer Name Role Phone Edward Sahde Lam Primary Care Provider [phone] Damir Witt MD Unavailable [phone] Source Comments In the event this information is protected by the Federal Confidentiality of Alcohol and Drug AbusePatient Records regulations: The Federal rules restrict any use of the information to criminally investigate or prosecute any alcohol or drug abuse patient.[facility] Encounter Details Date Type Department Care Team (Late st Contact Info) Description 07/16/2024 Get Medical Advice Pulmonary Medicine [address] [place] [address] Moriah Lawrence, KENNEL ATTENDANT.DIRECTOR OF HOME ECONOMICS [address] [place] [address] CT scan Social History Tobacco Use Types Packs/Day Years [...] is lower risk 8 08/09/2022 Data from: https://www.neighborhoodatlas.medicine.[facility].edu/. Last address used for calculation [...] Contact Info) Description 12/26/2024 4:[address] [facility] Gastroenterology [address] [address] Per Andres MD, PhD 8600 [place] [address] Follow Up 12/30/2024 12:45 PM EDT Appointment Cardiology [address] [place] [id number] DEVICE CHECK FOR MRI CLEARENCE 12/30/2024 2:10 PM EDT Appointment MRI Q [address] [address] DUE TO PT IMPLANT- IF APPT NEEDS TO BE RESCHEDULED IT MUST BE SENT TO THE FOLLOWING STAFF MESSAGE ADDRESS: IMAGING IMPLANTS [[id number]] ICD approved to schedule by . 01/28/2025 11:00 AM EST Appointment [facility] [place] Scan [address] [place] [address] Crohn's disease with complication, unspecified gastrointestinal tract location (HCC) [K50.919] 01/28/2025 12:30 PM EST Appointment [facility] [place] Scan [address] [place] [address] Crohn's disease with complication, unspecified gastrointestinal tract location (HCC) [K50.919] 02/17/2025 1:30 PM EST Office Visit Vascular Medicine [address] [place] [address] Coronary artery calcification; Aortic root dilation 02/17/2025 2:45 PM EST Office Visit Preventive Cardiology [address] [place] [address] Mary Fatima, KENNEL ATTENDANT.DIRECTOR OF HOME ECONOMICS [address] [place] [address] Coronary artery calcification; Aortic root dilation documented as of this encounter Goals Goal Patient Goal Type Associated Problems Recent Progress Patient-Stated? Author Blood Pressure < 130/80 Blood Pressure 126/70(2024 2:53 PM EDT) No Moriah Sullivan, [place] documented as of this encounter Visit Diagnoses Not on filedocumented in this encounter Care Teams Senior Java Developer Relationship Specialty Start Date End Date Shade Leon [address] [place] [address] PCP - General 06/22/00 Damir Witt MD [address] [place] [address] Primary Staff Physician Cardiology 12/13/22 documented as of this encounter
--- OUTSIDE RECORDS SUMMARY | 2024-12-16 11:00 | XMS_ITS | Encounter Summary ---
Author Organization [facility] Address [address] [place] [address] Care Team Providers Care Flue Blower Name Role Phone Edward Shadejodie Menjivarmond Primary Care Provider [phone] Damir Witt MD Unavailable [phone] Source Comments In the event this information is protected by the Federal Confidentiality of Alcohol and Drug AbusePatient Records regulations: The Federal rules restrict any use of the information to criminally investigate or prosecute any alcohol or drug abuse patient.[facility] Encounter Details Date Type Department Care Team (Late st Contact Info) Description 12/14/2022 Get Medical Advice Gastroenterology 2048 [place] [address] Per Andres MD, PhD 0485 [place] [address] [place] Social History Tobacco Use [...] place to sleep or slept in a fci (including now)? No 06/24/2022 Area Deprivation Index Answer Date Oscar rded National Score (1-100), lower number is lower ri sk 89 08/09/2022 State Score (1-10), lower number is lower risk 8 08/09/2022 Data from: https://www.neighborhoodatlas.medicine.[facility].edu/. Last address used for calculation [address] 08/09/2022 Sex and Gender Information Value Date Recorded Sex Assigned at Not on file Legal Sex Male 9:36 AM EST Gender Identity Not on file Sexual Orientation Not on file documented as of this encounter Plan of Treatment Upcoming Encounters Date Type Department Care Team (Latest Contact Info) Description 12/26/2024 4:30 PM EDT [facility] Gastroenterology [address] [address] Per Andres MD, PhD [address] [place], [place] [id number] Follow Up 12/30/2024 12:45 PM EDT Appointment Cardiology 9300 [place] [address] DEVICE CHECK FOR MRI CLEARENCE 12/30/2024 2:10 PM EDT Appointment MRI Q [address] [address] DUE TO PT IMPLANT- IF APPT NEEDS TO BE RESCHEDULED IT MUST BE SENT TO THE FOLLOWING STAFF MESSAGE ADDRESS: IMAGING IMPLANTS [[id number]] ICD approved to schedule by . 01/28/2025 11:00 AM EST Appointment [facility] [place] Scan [address] [place] [address] Crohn's disease with complication, unspecified gastrointestinal tract location (HCC) [K50.919] 01/28/2025 12:30 PM EST Appointment [facility] [place] Scan [address] [place] [address] Crohn's disease with complication, unspecified gastrointestinal tract location (HCC) [K50.919] 02/17/2025 1:30 PM EST Office Visit Vascular Medicine 9[address] [place] [address] Coronary artery calcification; Aortic root dilation 02/17/2025 2:45 PM EST Office Visit Preventive Cardiology 9[address] [place] [address] Mary Fatima, HOTEL CONTROLLER.CHEF 95[address] [place] [address] Coronary artery calcification; Aortic root dilation documented as of this encounter Visit Diagnoses Not on filedocumented in this encounter Care Teams Flue Blower Relationship Specialty Start Date End Date Shade Leon 1[address] [place] [address] PCP - General 06/22/00 Damir Witt MD [address] [place] [address] Primary Staff Physician Cardiology 12/13/22 documented as of this encounter
--- OUTSIDE RECORDS SUMMARY | 2024-12-16 11:00 | XMS_ITS | Encounter Summary ---
Author Organization [facility] Address [address] [place] [address] Care Team Providers Care Blood Bank Worker Name Role Phone Madi Leon DO Primary Care Provider [phone] Encounter Details Date Type Department Care Team (Latest Contact Info) Description 12/16/2024 Travel Social History Tobacco Use Types Packs/Day [...] Office Visit [facility] [address] [facility] [address] [place] [address] Skylar Jacob, MOTION PICTURE CRITIC-ANTHROPOLOGY INSTRUCTOR [address] [facility] [address] [place] [address] documented as of this encounter Visit Diagnoses Not on filedocumented in this encounter Care Teams Blood Bank Worker Relationship Specialty Start Date End Date Madi Leon DO [address] [facility] [place] [address] PCP - General Internal Medicine 09/19/22 documented as of this encounter
--- OUTSIDE RECORDS SUMMARY | 2024-12-16 11:00 | XMS_ITS | Clinical Summary ---
Author Organization [facility] Address [address] [place] [address] Care Team Providers Care Doubler Helper Name Role Phone Madi Leon Primary Care Provider [phone] Allergies Active Allergy Reactions Criticality Noted Date Comments Acetaminophen Fever,Unknown 06/21/2022 Other Reaction(s): flush, muscle aches Fever and clammy Azathioprine 10/25/2002 Other Reaction(s): Joint pain, Other (see comments), Other: See Comments Joint swelling/stiffness, Imuran Joint stiffness Medications budesonide EC (Entocort EC) 3 MG 24 hr capsule Take 6 mg by mouth in the morning. Active cyanocobalamin (Vitamin B-12) 1000 MCG/ML injection 3 Active FERROUS BISGLYCINATE CHELATE PO Take 1 capsule by mouth in the morning. 3 Active pantoprazole (ProtoNix) 40 MG EC tablet Take 40 mg by mouth Daily Active Risankizumab-rzaa 360 MG/2.4ML solution cartridge Inject 360 mg under the skin 3 Active magnesium oxide 400 MG capsule Take 1 capsule by mouth 1 (one) time each day Active metoprolol succinate XL (Toprol-XL) 25 MG 24 hr tablet Take 25 mg by mouth in the morning and 25 mg in the evening. 2 Active potassium chloride CR (K-Tab) 20 MEQ ER tablet Take 60 mEq by mouth in the morning. 3 Active fluticasone (Flonase) 50 MCG/ACT nasal spray 2 sprays 1 (one) time each day at the same time 3 Active lisinopril 20 MG tablet Take 20 mg by mouth in the morning. Active albuterol HFA 90 mcg/act inhaler Inhale 2 puffs every 6 (six) hours if needed 3 Active clotrimazole (Lotrimin) 1 % external solutionIndicatio ns:Acute swimmer's ear of left side 4 drops to left ear 2 times daily for 10 days 10 mL 1 4 Active cholecalciferol (Vitamin D-3) 25 MCG (1000 UT) capsule 4 Active zolpidem (Ambien) 10 MG tablet 4 Active econazole nitrate 1 % creamIndications: Tinea pedis of both feet Apply between toes and to the bottom of feet twice a day 85 g 3 4 Active tretinoin (Retin-A) 0.05 % creamIndications: Acne vulgaris Apply 1.5 g to the face, once daily at evening/nigh t time, 30 day supply 45 g 11 5 Active Active Problems Problem Noted Date Diagnosed Date Cervicalgia 11/28/2023 Balance disorder 11/16/2023 Pain in right knee 04/06/2023 Eustachian tube salpingitis 04/06/2023 Hypokalemia 04/06/2023 Neuroma of second interspace of both feet 2023 Neuroma of third interspace of left foot 024 Plantar nerve lesion 04/06/2023 Plantar warts 04/06/2023 Sensorineural hearing loss, bilateral 04/06/2023 Steroid dependent 04/06/2023 Chronic systolic heart failure 04/06/2023 Chela esophagitis 06/25/2022 GERD with esophagitis 06/25/2022 Essential hypertension 06/25/2022 Leukocytosis 06/25/2022 Thrombocytopenia 06/25/2022 Acute blood loss anemia 06/22/2022 Crohn's disease of both smal l and large intestine with fistula 06/22/2022 Hypovolemic shock 06/22/2022 Pneumatosis intestinalis 06/22/2022 Syncope 06/22/2022 Vertebrogenic low back pain 05/01/2012 Perianal Crohn's disease 06/30/2010 Crohn's disease of ileum 12/24/2003 Resolved Problems Problem Noted Date Diagnosed Date Resolved Date Acute otitis externa 04/06/2023 024 Acute pain of left knee 04/06/202303/14 Crohn's disease of both smal l and large intestine 04/06/2023 04/06/2023 Low serum potassium level 04/06/2023 S/P small bowel resection 04/06/2023 S/P partial colectomy 04/06/20232023 Acute respiratory failure with hypoxia 06/25/2022 04/06/2023 S/P implantation of automati c cardioverter/defibrillator (AICD) 06/25/20222023 Pneumoperitoneum 06/22/2022 04/06/2023 GI bleed 06/21/2022 04/06/2023 Encounters Date Type Department Care Team Description 12/16/2024 9:10 AM EDT Office Visit [facility] [address] [place] [address] Skylar Jacob RACKMAN-RATOPRINTER Inflamed seborrheic keratosis (Primary Dx) 12/16/2024 Bamboo flowsheet [facility] [place] [facility] [address] [place] [place] [address] Skylar Jacob RACKMAN-RATOPRINTER 12/16/2024 Travel 12/10/2024 Travel 11/14/2024 9:05 AM EDT Office Visit [facility] [place] [facility] [address] [place] [place] [address] Skylar Jacob, RACKMAN-RATOPRINTER Acne vulgaris (Primary Dx); Seborrheic keratosis; Lentigines; Melanocytic nevus of trunk; Seborrheic keratosis, inflamed 11/14/2024 Bamboo flowsheet [facility] [place] [facility] [address] [place] [place] [address] Skylar Jacob RACKMAN-RATOPRINTER 11/14/2024 Travel 11/07/2024 Travel 11/04/2024 Orders Only [facility] [place] [facility] [address] [place] [address] Maria E Love LPN Acne vulgaris from Last 3 Months Family History Medical History Relation Name Comments Heart disease Father Breast cancer Mother Geneva Tea Diabetes Mother Geneva Tea Relation Name Status Comments Father Mother Egneva Tea Social History Tobacco Use Types Packs/Day Years Used Date Smoking Tobacco: Never Smokeless Tobacco: Never Tobacco Cessation:Counseling Given: Not Answered Alcohol Use Standard Drinks/Week Comments Not Currently 0 (1 standard drink = 0.6 oz pur e alcohol) Sex and Gender Information Value Date Recorded Sex Assigned at Not on file Legal Sex Male 7:21 PM EDT Gender Identity Not on file Sexual Orientation Not on file Last Filed Vital Signs Vital Sign Reading Time Taken Comments Blood Pressure 162/96 04/12/2023 12:55 PM EST Pulse - - Temperature - - Respiratory Rate - - Oxygen Saturation - - Inhaled Oxygen Concentration - - Weight 99.3 kg (219 lb) 04/12/2023 12:55 PM EST Height 193 cm (6' 4 ) 04/12/2023 12:55 PM EST Body Mass Index 26.66 04/12/2023 12:55 PM EST Plan of Treatment Upcoming Encounters Date Type Department Care Team (Late st Contact Info) Description 11/18/2025 8:40 AM EDT Office Visit [facility] [address] [place] [phone] Skylar Jacob APRN-RATOPRINTER [address] [place] [address] Health Maintenance Due Date Last Done Comments CT Colonography 1962 FIT-DNA 1962 FIT 1962 FOBT 1962 Sigmoidoscopy 1962 Influenza Vaccine (#1) 2024 , 12/24/2022, 12/22/2021, Additional history exists Colonoscopy 09/08/2032 09/08/2022, 09/08/2022, 07/2016 Colorectal Cancer Screening 09/08/2032 Medical Devices Implanted Type Area Criminal Investigative Agent Device Identifier Shelf Expiration Date Model / Serial / Lot Blockman-D Icd TRANSPORTATION MAINTENANCE OPERATOR-D ICD Heart Procedures Procedure Name Priority Date/Time Associated Diagnosis Comments CRYOTHERAPY SKIN LESION Routine 12/17/19 9:01 AM EDT Inflamed seborrheic keratosis CRYOTHERAPY SKIN LESION Routine 11/15/19 9:15 AM EDT Seborrheic keratosis, inflamed from Last 3 Months Results * Cryotherapy, skin lesion (12/16/2024 9:01 AM EDT) us Skylar Mendoza Felter RACKMAN-RATOPRINTER DERM PROCEDURE ORDERAB LES Final Result * Cryotherapy, skin lesion (11/14/2024 9:15 AM EDT) us Skylar Mendoza Felter RACKMAN-RATOPRINTER DERM PROCEDURE ORDERAB LES Final Result from Last 3 Months Insurance BCBS Care Teams Doubler Helper Relationship Specialty Start Date End Date Madi Leon DO [address] [place] [address] PCP - General Internal Medicine 09/19/22
--- OUTSIDE RECORDS SUMMARY | 2024-12-16 11:00 | XMS_ITS | Encounter Summary ---
Author Organization [facility] Address [address] [place] [address] Care Team Providers Care Helmet Binder Name Role Phone Edward Shade Lam Primary Care Provider [phone] Damir Witt MD Unavailable [phone] Source Comments In the event this information is protected by the Federal Confidentiality of Alcohol and Drug AbusePatient Records regulations: The Federal rules restrict any use of the information to criminally investigate or prosecute any alcohol or drug abuse patient.[facility] Encounter Details Date Type Department Care Team ([facility] Contact Info) Description 08/28/2022 Patient Msg Gastroenterology [address] [place] [id number] Anastasiia Blood, [facility] [address] [place] [address] Visit Summary Social History Tobacco Use Types Packs/Day Years [...] risk 8 08/09/2022 Data from: https://www.neighborhoodatlas.medicine.[facility].edu/. Last address used for calculation [address] 08/09/2022 Sex and Gender Information Value Date Recorded Sex Assigned at Not on file Legal Sex Male 9:36 AM EST Gender Identity Not on file Sexual Orientation Not on file documented as of this encounter Plan of Treatment Upcoming Encounters Date Type Department Care Team (Latest Contact Info) Description 12/26/2024 4:30 PM EDT [facility] Gastroenterology [address] [address] Per Andres MD, PhD 9[address] [place] [address] Follow Up 12/30/2024 12:45 PM EDT Appointment Cardiology [address] [facility] [place] [address] DEVICE CHECK FOR MRI CLEARENCE 12/30/2024 2:10 PM EDT Appointment MRI Q [address] [place] [address] DUE TO PT IMPLANT- IF APPT NEEDS TO BE RESCHEDULED IT MUST BE SENT TO THE FOLLOWING STAFF MESSAGE ADDRESS: IMAGING IMPLANTS [[id number]] ICD approved to schedule by . 01/28/2025 11:00 AM EST Appointment [facility] [place] Scan [address] [place] [address] Crohn's disease with complication, unspecified gastrointestinal tract location (HCC) [K50.919] 01/28/2025 12:30 PM EST Appointment [facility] [place] Scan [address] [place] [address] Crohn's disease with complication, unspecified gastrointestinal tract location (HCC) [K50.919] 02/17/2025 1:30 PM EST Office Visit Vascular Medicine [address] [place] [address] Coronary artery calcification; Aortic root dilation 02/17/2025 2:45 PM EST Office Visit Preventive Cardiology [address] [place] [phone] Mary Fatima, FITNESS/WELLNESS DIRECTOR.WATER TESTER [address] [place] [address] Coronary artery calcification; Aortic root dilation documented as of this encounter Visit Diagnoses Not on filedocumented in this encounter Care Teams Helmet Binder Relationship Specialty Start Date End Date Shade Leon [address] [place], [place] [phone] PCP - General 06/22/00 Damir Witt MD [address] [place] [address] Primary Staff Physician Cardiology 12/13/22 documented as of this encounter
--- OUTSIDE RECORDS SUMMARY | 2024-12-16 11:00 | XMS_ITS | Encounter Summary ---
Author Organization [facility] Address [address] [place] [address] Care Team Providers Care Cigar Bander Hand Name Role Phone Edward Shadejodie Fritz Primary Care Provider [phone] Damir Witt MD Unavailable [phone] Source Comments In the event this information is protected by the Federal Confidentiality of Alcohol and Drug AbusePatient Records regulations: The Federal rules restrict any use of the information to criminally investigate or prosecute any alcohol or drug abuse patient.[facility] Encounter Details Date Type Department Care Team (Late st Contact Info) Description 08/24/2022 Get Medical Advice Gastroenterology [address] [place] [address] Per Andres MD, PhD [address] [place] [address] Dr So Social History Tobacco Use Types Packs/Day Years [...] is lower risk 8 08/09/2022 Data from: https://www.neighborhoodatlas.medicine.[facility].edu/. Last address used for calculation [address] 08/09/2022 Sex and Gender Information Value Date Recorded Sex Assigned at Not on file Legal Sex Male 9:36 AM EST Gender Identity Not on file Sexual Orientation Not on file documented as of this encounter Plan of Treatment Upcoming Encounters Date Type Department Care Team (Latest Contact Info) Description 12/26/2024 4:30 PM EDT [facility] Gastroenterology [address] [address] Per Andres MD, PhD [address] [place], [place] [phone] Follow Up 12/30/2024 12:45 PM EDT Appointment Cardiology 9[address] [place] [address] DEVICE CHECK FOR MRI CLEARENCE 12/30/2024 2:10 PM EDT Appointment MRI Q [address] [address] DUE TO PT IMPLANT- IF APPT NEEDS TO BE RESCHEDULED IT MUST BE SENT TO THE FOLLOWING STAFF MESSAGE ADDRESS: IMAGING IMPLANTS [[id number]] ICD approved to schedule by . 01/28/2025 11:00 AM EST Appointment [facility] [place] Scan [address] [place] [address] Crohn's disease with complication, unspecified gastrointestinal tract location (HCC) [K50.919] 01/28/2025 12:30 PM EST Appointment [facility] [place] Scan [address] [place] [address] Crohn's disease with complication, unspecified gastrointestinal tract location (HCC) [K50.919] 02/17/2025 1:30 PM EST Office Visit Vascular Medicine 9[address] [place] [address] Coronary artery calcification; Aortic root dilation 02/17/2025 2:45 PM EST Office Visit Preventive Cardiology 9[address] [place] [address] Mary Fatima, DENTAL PROFESSIONAL.BLACKENER [address] [place] [address] Coronary artery calcification; Aortic root dilation documented as of this encounter Visit Diagnoses Not on filedocumented in this encounter Care Teams Cigar Bander Hand Relationship Specialty Start Date End Date Shade Leon [address] [place] [address] PCP - General 06/22/00 Damir Witt MD [address] [place] [address] Primary Staff Physician Cardiology 12/13/22 documented as of this encounter
--- OUTSIDE RECORDS SUMMARY | 2024-12-16 11:01 | XMS_ITS | Encounter Summary ---
Author Organization [facility] Address [address] [place] [address] Care Team Providers Care Automotive Electrician Helper Name Role Phone Maynor Leonore Lam Primary Care Provider [phone] Damir Witt MD Unavailable [phone] Source Comments In the event this information is protected by the Federal Confidentiality of Alcohol and Drug AbusePatient Records regulations: The Federal rules restrict any use of the information to criminally investigate or prosecute any alcohol or drug abuse patient.[facility] Encounter Details Date Type Department Care Team (Late st Contact Info) Description 10/23/2024 Patient Msg Preventive Cardiology [address] [place] [phone] Kiko Lopez MD [address] [place] [address] Results Social History Tobacco Use Types Packs/Day Years [...] is lower risk 8 08/09/2022 Data from: https://www.neighborhoodatlas.medicine.[facility].edu/. Last address used for calculation [address] 08/09/2022 Sex and Gender Information Value Date Recorded Sex Assigned at Not on file Legal Sex Male 9:36 AM EST Gender Identity Not on file Sexual Orientation Not on file documented as of this encounter Plan of Treatment Upcoming Encounters Date Type Department Care Team (Latest Contact Info) Description 12/26/2024 4:30 PM EDT [facility] Gastroenterology [address] [address] Per Andres MD, PhD [address] [place], [place] [phone] Follow Up 12/30/2024 12:45 PM EDT Appointment Cardiology [address] [place] [address] DEVICE CHECK FOR MRI CLEARENCE 12/30/2024 2:10 PM EDT Appointment MRI Q [address] [address] DUE TO PT IMPLANT- IF APPT NEEDS TO BE RESCHEDULED IT MUST BE SENT TO THE FOLLOWING STAFF MESSAGE ADDRESS: IMAGING IMPLANTS [[id number]] ICD approved to schedule by . 01/28/2025 11:00 AM EST Appointment [facility] [place] Scan [address] [place] [address] Crohn's disease with complication, unspecified gastrointestinal tract location (HCC) [K50.919] 01/28/2025 12:30 PM EST Appointment [facility] [place] Scan [address] [place] [address] Crohn's disease with complication, unspecified gastrointestinal tract location (HCC) [K50.919] 02/17/2025 1:30 PM EST Office Visit Vascular Medicine [address] [place] [address] Coronary artery calcification; Aortic root dilation 02/17/2025 2:45 PM EST Office Visit Preventive Cardiology 9[address] [place] [address] Mary Fatima, CASTING TRUCKER.INSPECTOR OF WEIGHTS AND MEASURES [address] [place] [address] Coronary artery calcification; Aortic root dilation documented as of this encounter Goals Goal Patient Goal Type Associated Problems Recent Progress Patient-Stated? Author Blood Pressure < 130/80 Blood Pressure 126/70(2024 2:53 PM EDT) No Moriah Sullivan, RN documented as of this encounter Visit Diagnoses Not on filedocumented in this encounter Care Teams Automotive Electrician Helper Relationship Specialty Start Date End Date Shade Leon [address] [place] [address] PCP - General 06/22/00 Damir Witt MD [address] [place] [phone] Primary Staff Physician Cardiology 12/13/22 documented as of this encounter
--- OUTSIDE RECORDS SUMMARY | 2024-12-16 11:01 | XMS_ITS | Encounter Summary ---
Author Organization [facility] Address [address] [place] [id number] Care Team Providers Care Manager Ed Name Role Phone Edward Shadejodie Menjivarmond Primary Care Provider [phone] Damir Witt MD Unavailable [phone] Source Comments In the event this information is protected by the Federal Confidentiality of Alcohol and Drug AbusePatient Records regulations: The Federal rules restrict any use of the information to criminally investigate or prosecute any alcohol or drug abuse patient.[facility] Encounter Details Date Type Department Care Team (Late st Contact Info) Description 06/16/2023 Get Medical Advice Gastroenterology [address] [place] [address] Per Andres MD, PhD [address] [place] [address] [place] Social History Tobacco Use Types Packs/Day Years [...] PHQ-2 Answer Date Recorded PHQ-2 score 0 01/16/2023 Hunger Vital Sign Answer Date Recorded Within [...] is lower risk 8 08/09/2022 Data from: https://www.neighborhoodatlas.medicine.[facility].edu/. Last address used for calculation [address] 08/09/2022 Sex and Gender Information Value Date Recorded Sex Assigned at Not on file Legal Sex Male 9:36 AM EST Gender Identity Not on file Sexual Orientation Not on file documented as of this encounter Miscellaneous Notes * Telephone Encounter - Brittny Callejas LPN - 06/19/2023 8:58 AM EDT Images from the original note were not included. Per Andres MD, PhD Brittny Callejas LPN Hi Brittny, When you get a chance, can you schedule a follow up virtual with me in 4 weeks? I canceled the CT abdomen (discussed the CTE results with radiology, low suspicion for abscess). I ordered CBC and CRP in 1 month which he can do locally. Thanks, Brodie Assisted with scheduling virtual visit 07/13/23 8:30 am. Brittny Callejas LPN * Telephone Encounter - Brittny Callejas LPN - 06/19/2023 8:54 AM EDT Called spoke with patient for clarification of message. Patient stated Dr Moss recently expressed possibly starting Entyvio. Patient stated if this therapy is being prescribed he would like to use [facility]. Patient is aware it has to be approved by insurance first. Please advise Brittny Callejas LPN documented in this encounter Plan of Treatment Upcoming Encounters Date Type Department Care Team (Latest Contact Info) Description 12/26/2024 4:30 PM EDT [facility] Gastroenterology [address] [address] Per Andres MD, PhD [address] [place] [address] Follow Up 12/30/2024 12:45 PM EDT Appointment Cardiology [address] [place] [address] DEVICE CHECK FOR MRI CLEARENCE 12/30/2024 2:10 PM EDT Appointment MRI Q [address] [address] DUE TO PT IMPLANT- IF APPT NEEDS TO BE RESCHEDULED IT MUST BE SENT TO THE FOLLOWING STAFF MESSAGE ADDRESS: IMAGING IMPLANTS [[id number]] ICD approved to schedule by . 01/28/2025 11:00 AM EST Appointment [facility] Scan [id number] [place], [place] [id number] Crohn's disease with complication, unspecified gastrointestinal tract location (HCC) [K50.919] 01/28/2025 12:30 PM EST Appointment [facility] [place] Scan [id number] [place] [address] Crohn's disease with complication, unspecified gastrointestinal tract location (HCC) [K50.919] 02/17/2025 1:30 PM EST Office Visit Vascular Medicine [address] [place] [address] Coronary artery calcification; Aortic root dilation 02/17/2025 2:45 PM EST Office Visit Preventive Cardiology [address] [place] [id number] Mary Fatima, [email or web address] [address] [place] [address] Coronary artery calcification; Aortic root dilation documented as of this encounter Visit Diagnoses Not on filedocumented in this encounter Care Teams Manager Ed Relationship Specialty Start Date End Date Shade Leon [address] [place] [address] PCP - General 06/22/00 Damir Witt MD [address] [place] [address] Primary Staff Physician Cardiology 12/13/22 documented as of this encounter
--- OUTSIDE RECORDS SUMMARY | 2024-12-16 11:01 | XMS_ITS | Clinical Summary ---
Author Organization [facility] Address [address] [place] [id number] Care Team Providers Care Design Director Name Role Phone Cristina Leonodore Lam Primary Care Provider [phone] Damir Witt MD Unavailable [phone] Allergies Active Allergy Reactions Criticality Noted Date Comments Azathioprine Other: See Comments 06/21/2022 Joint stiffness Acetaminophen Other: See Comments 06/21/2022 Fever and clammy Medications ferrous bis-glycinate chelate (IRON BISGLYCINATE CHELATE) 29 mg iron capIndications: Crohn's disease of small intestine with complication (HCC) Take 1 capsule by mouth once daily. 1 capsule 5 023 Active Cholecalciferol , Vitamin D3, 25 mcg (1,000 unit) cap Take by mouth q 24 HR. 019 Active lisinopril (ZESTRIL) 20 mg tablet Take 10 mg by mouth once daily. 022 Active COPPER ORAL Take by mouth. Act kera potassium chloride 20 mEq TbER Take 4 tablets by mouth once daily. 360 tablet 1 025 Active cyanocobalamin 1,000 mcg/mL Inject 1 mL every 4 weeks then once per month following 4 mL 3 025 Active vedolizumab (ENTYVIO PEN) 108 mg/0.68 mL penIndications: 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) Inject 108mg (1 pen) subcutaneously every other week. 1.36 mL 2 025 Active vedolizumab (ENTYVIO PEN) 108 mg/0.68 mL penIndications: 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) Inject 108mg (1 pen) subcutaneously every other week. 1.36 mL 2 025 Active budesonide, enteric coated (ENTOCORT EC) 3 mg 24 hr capsule Take 2 capsules by mouth once daily 32 capsule 025 Active vedolizumab (ENTYVIO PEN) 108 mg/0.68 mL penIndications: 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) Inject 0.68 mL subcutaneously every other week. 2 each 2 025 Active metoprolol succinate ER (TOPROL XL) 25 mg 24 hr tabletIndicatio ns:Cardiomyopat hy, unspecified type (HCC) TAKE ONE TABLET BY MOUTH TWICE A DAY 180 tablet 3 025 Active risankizumab-rz aa (SKYRIZI) 360 mg/2.4 mL (150 mg/mL) wearable injectorIndicat ions:Crohn's disease of small intestine with complication (HCC) Inject 360 mg/2.4 mL subcutaneously once every 4 weeks 2.4 mL 11 025 Active risankizumab-rz aa (SKYRIZI) 360 mg/2.4 mL (150 mg/mL) wearable injectorIndicat ions:Crohn's disease of small intestine with complication (HCC) Inject 360 mg/2.4 mL subcutaneously once every 4 weeks 2.4 mL 11 024 2024 Discontinued Active Problems Patient Care Coordination No te Formatting of this note is d ifferent from the original. Indication for MICU Admission: Hypovolemic shock Significant PMH/PSH: - Crohn's disease s/p multiple ileal resections - HTN - Hx of RV dysplasia s/p [facility] Hospital Course: 62 year old with PMHx notable for Crohn's disease s/p multiple ileal resections, HTN, RV dysplasia s/p debrillator placement, who presents with 5 days of GI bleeding. He initially presented to [facility] for the GI bleeding. He reports he had an EGD 06/18 that showed gastric ulcers that were cauterized. He had a repeat EGD 06/20 without any intervention. He continued to have 2-3 bloody BM per day and received multiple blood products including 4u pRBC yesterday. He was also on stress dose steroids. On 06/21, the patient checked himself out and came to [facility] Main for a second opinion. Initially, in the ED, the patient had an Hgb of 8.7 and lactate of 4.8. CT Abd/pel showed active inflammatory bowel disease and small pocket of pneumatosis. He was evaluated by CORS, whom did not recommend any acute surgical intervention and recommended fluid resuscitation and empiric zosyn coverage. On 06/21 evening, he BRBPR and syncopal episode when on the commode with fall to ground. CT brain/spine was negative and CTA abd/pelvis showed no active GI bleed, then patient was transferred to MICU. Patient continued to have red/maroon stools, and MTP was activated with multiple blood products given. Patient was intubated for impending procedures and then noted to have large hematemesis. GI was consulted for bedside scope, found diffuse bleeding in small bowel. IR consulted for angiogram and embolized pseudoaneurysm in proximal SMA. Significant New Events Past 24 hrs: Extubated CBC stable. Up and walking around. A/P of Major Active Problems: #Upper GI bleed #Hypovolemic Shock 2/2 GIB, resolved #Crohn's disease s/p multiple resections, 103 cm of ileum resected with ileocolonic anastomosis #Syncope 2/2 GI losses #Hx of RV dysplasia s/p defibrillator, per , placed in 2019 after v-fib episode, has never fired #Pneumatosis #Indra Esophagitis #Thrombocytopenia On Prednisone 10mg daily at home S/p OSH EGD 06/18 with cauterization of gastric ulcers, noted indra esophagitis 06/22 GI scope with diffuse bleeding in small bowel likely the source, unable to visualize large bowel 06/22 S/p IR embolization and glue of ruptured pseudoaneurysm proximal SMA jejunal branch S/p MTP w/ 16u PRBC, 5 FFP, 4 plts, 2 cryo total Plan: - Serial CBC - Continue Zosyn (06/21-) empirically x 7 days, micafungin->fluconazole (06/22-) for indra esophagitis - PPI - Monitor for further signs of bleeding from upper and lower GI sources - Serial abdominal exams - GI consulted, appreciate recs - CORS consulted, appreciate recs - Gen surg consulted, appreciate recs - IR following - Follow-up infectious workup, currently NG x2day - Hold home medications: amlodipine and metoprolol in setting of shock - Restart home prednisone 10mg daily - Restart budesonide - ADAT #Acute Hypoxemic Respiratory Failure Intubated 06/22 pre-procedurally Plan: - Wean to extubate Barriers to transfer out of MICU: MV, shock Problem Noted Date Diagnosed Date Thrombocytopenia 06/25/2022 S/P implantation of automati c cardioverter/defibrillator (AICD) 06/25/2022 Essential hypertension 06/25/2022 Leukocytosis 06/25/2022 GERD with esophagitis 06/25/2022 Indra esophagitis 06/25/2022 Acute respiratory failure with hypoxia Acute blood loss anemia 06/22/2022 Crohn's disease of both smal l and large intestine with fistula 06/22/2022 Pneumatosis intestinalis 06/22/2022 Pneumoperitoneum 06/22/2022 Hypovolemic shock 06/22/2022 Syncope 06/22/2022 GI bleed 06/21/2022 Encounters Date Type Department Care Team Description 12/04/2024 Orders Only Pseudo [place]ARD [place] [address] Dread Fay MD 11/24/2024 Get Medical Advice Urology [address] [place] [address] Saige Lion APRN.[employer] MRI 11/22/2024 Refill Gastroenterology [address] [place] [address] Per Andres MD, PhD Refill Request 11/20/2024 Orders Only Pseudo [place]ARD [place] [address] Dread Fay MD 11/09/2024 Refill Cardiology [address] [place] [address] Damir Witt MD Refill Request 11/08/2024 Get Medical Advice Gastroenterology [address] [place] [id number] Per Andres MD, PhD Entyvio 11/06/2024 Orders Only Urology [address] [place] [address] Saige Lion APRN.CNP Prostate cancer screening (Primary Dx); Encounter for observation for other suspected diseases and conditions ruled out 11/06/2024 Results Follow-Up Urology [address] [address] Saige Lion APRN.CNP 11/05/2024 9:30 AM EDT Office Visit Urology [address] [address] Saige Lion APRN.CNP Prostate cancer screening (Primary Dx); Screening for genitourinary condition 11/05/2024 Patient Outreach Urology [address] [address] Saige Lion APRN.[employer] 10/23/2024 Patient Msg Preventive Cardiology [address] [place] [address] Kiko Lopez MD Results 10/21/2024 Results Follow-Up Gastroenterology [address] [place] [id number] Per Andres MD, PhD 10/18/2024 3:00 PM EDT [facility] Center Hematology/Oncolog y [address] [place] [address] 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) (Primary Dx) 10/08/2024 Travel 10/04/2024 Results Follow-Up Pulmonary Medicine [address] [place] [address] Moriah Lawrence, PUBLICATION DISTRIBUTOR.[employer] 10/03/2024 10:00 AM EDT Office Visit Pulmonary Medicine [address] [place] [address] Moriah Lawrence, PUBLICATION DISTRIBUTOR.SJ Lung nodule (Primary Dx) 10/03/2024 9:18 AM EDT - 10/03/2024 11:59 PM EDT Hospital Encounter Radiology [address] [place] [address] Lung nodules [R91.8] Discharge Disposition: Home 09/30/2024 Telephone Gastroenterology [address] [place] [id number] Per Andres MD, PhD Medication Authorization (Denial Letter ) 09/25/2024 Refill Gastroenterology [address] [place] [id number] Per Andres MD, PhD Refill Request 09/24/2024 Patient Msg HOSP MAIN H060 [address] [place] [phone] Provider, [facility]cf Sign up to manage your digestive symptoms in between visits, covered by insurance 09/18/2024 Patient Msg Gastroenterology [address] [place] [id number] Per Andres MD, PhD Appointment Request 09/18/2024 Telephone Gastroenterology [address] [place] [id number] Per Andres MD, PhD Medication Problem (Entyvio pen at wrong specialty pharmacy/[facility] updated appeal letter needed for bridge program ) 09/17/2024 Orders Only Pseudo [place] [address] Dread Fay MD from Last 3 Months Immunizations Immunization Administration Dates Next Due hepatitis A (HepA) vaccine, adult (HAVRIX, VAQTA) 10/07/2014,02/19/2014 influenza (LAIV) vaccine, na joycelyn, unspecified formulation 12/22/2021 pneumococcal conjugate (PCV1 3) vaccine, 13 valent (PREVNAR 13) 03/19/2018 pneumococcal polysaccharide (PPV23) vaccine, 23 valent (PNEUMOVAX 23) 04/09/2017 tetanus diphtheria (Td) vacc ine, age 7+ yr, 5 Lf tetanus, PF (TENIVAC) 11/19/2015,12/28/2014,12/17/2013,12/30 zoster (RZV) vaccine, recomb inant (SHINGRIX) 02/14/2023 Family History Medical History Relation Comments Hypertension Brother Coronary Artery Disease Father s/p CABG Heart Attack Father Hypertension Father Breast Cancer Mother bone Relation Status Comments Brother Alive Father Mother Social History Tobacco Use Types Packs/Day Years Used Date Smoking Tobacco: Never Passive Smoke Exposure: Never Smokeless Tobacco: Never Tobacco Cessation:Counseling Given: [...] place to sleep or slept in a assisted (including now)? No 06/24/2022 Area Deprivation Index Answer Date Oscar rded National Score (1-100), lower number is lower ri sk 89 08/09/2022 State Score (1-10), lower number is lower risk 8 08/09/2022 Data from: https://www.neighborhoodatlas.medicine.[facility].edu/. Last address used for calculation [address] 08/09/2022 Sex and Gender Information Value Date Recorded Sex Assigned at Not on file Legal Sex Male 9:36 AM EST Gender Identity Not on file Sexual Orientation Not on file Last Filed Vital Signs Vital Sign Reading Time Taken Comments Blood Pressure 126/70 10/18/2024 2:53 PM EDT Pulse 68 10/18/2024 2:53 PM EDT Temperature 36.3 C (97.4 F) 10/18/2024 2:53 PM EDT Respiratory Rate 16 10/18/2024 2:53 PM EDT Oxygen Saturation 97% 10/18/2024 2:53 PM EDT Inhaled Oxygen Concentration - - Weight 96.2 kg (212 lb) 10/03/2024 9:48 AM EDT Height 193 cm (6' 3.98 ) 10/03/2024 9:48 AM EDT Body Mass Index 25.82 10/03/2024 9:48 AM EDT Plan of Treatment Upcoming Encounters Date Type Department Care Team (Latest Contact Info) Description 12/26/2024 4:30 PM EDT [facility] Gastroenterology [address] [address] Per Andres MD, PhD [address] [place] [address] Follow Up 12/30/2024 12:45 PM EDT Appointment Cardiology [address] [place] [address] DEVICE CHECK FOR MRI CLEARENCE 12/30/2024 2:10 PM EDT Appointment MRI Q [address] [address] DUE TO PT IMPLANT- IF APPT NEEDS TO BE RESCHEDULED IT MUST BE SENT TO THE FOLLOWING STAFF MESSAGE ADDRESS: IMAGING IMPLANTS [[id number]] ICD approved to schedule by . 01/28/2025 11:00 AM EST Appointment [facility] [place] Scan [address] [place] [address] Crohn's disease with complication, unspecified gastrointestinal tract location (HCC) [K50.919] 01/28/2025 12:30 PM EST Appointment [facility] [place] Scan [address] [place] [address] Crohn's disease with complication, unspecified gastrointestinal tract location (HCC) [K50.919] 02/17/2025 1:30 PM EST Office Visit Vascular Medicine [address] [place] [address] Coronary artery calcification; Aortic root dilation 02/17/2025 2:45 PM EST Office Visit Preventive Cardiology [address] [place] [address] Mary Fatima, PUBLICATION DISTRIBUTOR.[employer] [address] [place] [address] Coronary artery calcification; Aortic root dilation Health Maintenance Due Date Last Done Comments Annual PCP Team Chronic Dise ase Visit 1980 Anxiety Screening 1980 Depression Screening 1980 HIV Screening 1980 Hepatitis C Screening 1980 CT Colonography 06/14/2007 Cologuard (FIT-DNA) 06/14/2007 Fecal Occult Blood 06/14/2007 Sigmoidoscopy 06/14/2007 DTaP,Tdap,Td Vaccine (1 - Tdap) 11/20/2015 11/19/2015, 12/28/2014, 12/17/2013, Additional history exists Pneumococcal Vaccine: 50+ (3 of 3 - PCV20 or PCV21) 03/19/2023 03/19/2018, 04/09/2017, 01/06/2008 Colonoscopy 09/09/2023 09/08/2022, 12/06/1999 Colorectal Cancer Screening 09/09/2023 Covid-19 Vaccine ( - 2024-2 6 season) 2024 02/12/2022, 08/20/2021, 10/25/2020, Additional history exists Influenza Vaccine (#1) 2024 , 12/24/2022, 12/22/2021, Additional history exists Prostate Cancer Screening Discussion 11/06/2025 11/05/2024 Diabetes Screening 10/18/2027 10/17/2024, 0 08/19/2024, 06/19/2024, Additional history exists Lipid Screening 10/17/2029 10/17/2024, 10/16/2023 RSV Vaccine (1 - 1-dose 75+ series) 2037 Shingrix Vaccine Completed 05/29/2023, 02/14/2023 Goals Goal Patient Goal Type Associated Problems Recent Progress Patient-Stated? Author Blood Pressure < 130/80 Blood Pressure 126/70(2024 2:53 PM EDT) Moriah Olguin, RN Medical Devices Implanted Type Area Surgical Assistant Certified Device Identifier Shelf Expiration Date Model / Serial / Lot [id number] Acticor 7 Vr-T [id number] Implanted:01/08 (Quantity not on file) ICD [employer] [id number] Acticor 7 VR-T DX / [id number] / Particles Trufill Nbca Embolization Kit Liquid System 1gm - [id number] Implanted:Qty: 1 on 06/22/2022 at [facility] Implant N/A: Abdomen J&J CODMAN 01/11/2024 [id number] / / [id number] Device Angio-Seal Vip 6fr .035in Collagen 70cm Closure Valuelink Guidewire - [id number] Implanted:Qty: 1 on 06/22/2022 at [facility] Implant Right: Groin ST EILEEN CARDIOVASCULAR 07/10/2022 [id number] / / [id number] Plexa Promri S Dx 65/15 [id number] Implanted:01/08 (Quantity not on file) Lead [employer] [id number] PLEXA PROMRI S DX 65/15 / [id number] / Procedures Procedure Name Priority Date/Time Associated Diagnosis Comments CARDIAC IMPLANTABLE DEVICE CHECK REMOTE Routine 12/04/2024 12:54 AM EDT CARDIAC IMPLANTABLE DEVICE CHECK REMOTE Routine 11/20/2024 12:55 AM EDT Procedure Note - Dread Fay MD - 11/20/2024 12:55 AM EDTThis note is in progress. Tachycardia: AF w/RVR * Stored EGM (#412) is consistent with or suggestive of AtrialFibrillation with Rapid Ventricular Response, was marked as slow nsT * AT/AF Ennis: 0% * Total episodes: 1, duration of AF unknown as ventricular rate falls below VT detection which terminatesevent * no OAC listed Non-sustained Tachycardia: SVT * Stored EGMs are consistent with or suggestive of non-sustainedSupraventricular Tachycardia, events marked as nsT * Total episodes: 13 NOTE TO PROVIDERS: Cardiac Implanted Devices Flowsheets contain detailedProgramming and Evaluation data. Full Docket/PDF found below under Scanned Documents . PSA/PROSTSPECAG SCRN Routine 11/05/2024 11:37 AM EDT Prostate cancer screening UA DIP, URINE (POC) Routine 11/05/2024 9:15 AM EDT Screening for genitourinary condition LIPID PANEL, FASTING Routine 10/17/2024 8:06 AM EDT Coronary artery calcification COMPREHENSIVE METABOLIC PANEL Routine 10/17/2024 8:06 AM EDT Crohn's disease of small and large intestines with complication (HCC) CBC + DIFF Routine 10/17/2024 8:06 AM EDT Crohn's disease of small and large intestines with complication (HCC) CT CHEST WO IVCON Routine 10/03/2024 9:52 AM EDT Lung nodules INTERROGATION EVAL REMOTE </90 D /2/CLOTH LAYER LD DFB Routine 09/17/2024 1:00 AM EDT COLONOSCOPY SCREENING Routine 09/08/2022 11:11 AM EDT Crohn's disease of small intestine with complication (HCC) from Last 3 Months or Most Recently Relevant to Health Maintenance Results * CARDIAC IMPLANTABLE DEVICE CHECK REMOTE (12/04/2024 12:54 AM EDT) Pathologist [facility] Date Time Interrogation Session [id number] [facility]ARD[facility]AC Type Interrogation Session Remote Scheduled [facility] Implantable Pulse Generator Surgical Assistant Certified BiotroniUsarium [facility] CARDIAC Implantable Pulse Generator Type Defibrillator [facility]ARD[facility] Implantable Pulse Generator Model Acticor 7 VR-T DX [facility] Implantable Pulse Generator Serial Number [id number] [facility] Implantable Pulse Generator Implant Date 20200109 [facility] Battery Remaining Percentage 81.00 [facility] Battery Voltage 3.110 [facility] Battery LINE WALKER Trigger 2.850 [facility] Battery Status MOS [facility] Capacitor Charge Time 9.300 [facility] Eduin Statistic RV Percent Paced 0.00 [facility] Atrial Tachy Statistic AT/AF Ennis Percent 0.00 [facility] Lead Channel Sensing Intrinsic Amplitude 2.100 [facility] Lead Channel Setting Sensing Sensitivity 1.00 M[facility] Lead Channel Measurements Date and Time 2024-12-04 [facility] Lead Channel Sensing Intrinsic Amplitude 17.700 [facility] Lead Channel Setting Sensing Sensitivity 0.80 [facility] Lead Channel Impedance Value 442 [facility] Lead Channel Measurements Date and Time 2024-12-04 [facility] Lead Channel Setting Pacing Amplitude 2.000 [facility] Lead Channel Setting Pacing Pulse Width 0.4 [facility] Eduin Setting Mode (NBG Code) VDI [facility]ARD[facility]AC Eduin Setting Lower Rate Limit 40 [facility] Therapy Statistic Recent Shocks Delivered 0 [facility] CARD[facility] Therapy Statistic Recent Shocks Aborted 0 M[facility]AC Therapy Statistic Recent ATP Delivered 0 [facility] Shock Measured Impedance 69 [facility] CARDI[facility] Lead Channel Setting Sensing Polarity Bipolar [facility] CARDI[facility] Lead Channel Setting Sensing Polarity Bipolar [facility]ARDI[facility] Lead Channel Setting Pacing Polarity Bipolar [facility] Zone Setting Type Category Zone_ATAF [facility]ARD[facility]AC Rate 1 200 [facility] CARD[facility] Zone Setting Status Monitor M[facility] CARDIAC Zone ID 7 [facility] C[facility] Zone Setting Type Category VF [facility] CARD[facility]AC Rate 1 240 [facility] Therapies Burst,40.0J,40.0J, 40.0J x 6 [facility] Zone Setting Status On [facility] Zone ID 8 [facility]ARD[facility] Zone Setting Type Category VT [facility]J CARDIAC Rate 1 171 [facility] CARDI[facility] Zone Setting Status Monitor M[facility] CARDIAC Zone ID 9 [facility] Zone Setting Type Category VT [facility] CARDIAC Rate 1 182 [facility] Therapies 4 x Burst,4 x Burst,40.0J,40.0J, 40.0J x 6 [facility] Zone Setting Status On [facility] Zone ID 10 [facility] Implantable Lead Surgical Assistant Certified Biotronik [facility] Implantable Lead Model [id number] Plexa ProMRI S DX 65/15 [facility] Implantable Lead Location Right Ventricle [facility] Implantable Lead Connection Status Connected [facility] Implantable Lead Serial Number [id number] [facility] Implantable Lead Implant Date [id number] [facility] 12/04/2024 12:5 4 AM EDT Narrative [facility] - 12/05/2024 1:43 PM EDT Non-sustained Ventricular Tachycardia * Stored EGMs are consistent with or suggestive of Non-sustained VT Normal Remote: No Events * Normal Device Function * Alerts or events: None * Battery: Battery is at 81%, * Sensing, impedance and thresholds reviewed * Programmed parameters reviewed * Presenting rhythm reviewed * Heart Rate Histograms reviewed * No significant changes noted Normal Remote: No Events * Normal Device Function * Alerts or events: None * Battery: Battery is at 81%, * Sensing, impedance and thresholds reviewed * Programmed parameters reviewed * Presenting rhythm reviewed /VS * Heart Rate Histograms reviewed * No significant changes noted RECYCLE DRIVER 0% NOTE TO PROVIDERS: Cardiac Implanted Devices Flowsheets contain detailed Programming and Evaluation data. Full Docket/PDF found below under Scanned Documents . Procedure Note Draed Fay MD - 12/05/2024 Non-sustained Ventricular Tachycardia * Stored EGMs are consistent with or suggestive of Non-sustained VT Normal Remote: No Events * Normal Device Function * Alerts or events: None * Battery: Battery is at 81%, * Sensing, impedance and thresholds reviewed * Programmed parameters reviewed * Presenting rhythm reviewed * Heart Rate Histograms reviewed * No significant changes noted Normal Remote: No Events * Normal Device Function * Alerts or events: None * Battery: Battery is at 81%, * Sensing, impedance and thresholds reviewed * Programmed parameters reviewed * Presenting rhythm reviewed /VS * Heart Rate Histograms reviewed * No significant changes noted RECYCLE DRIVER 0% NOTE TO PROVIDERS: Cardiac Implanted Devices Flowsheets contain detailedProgramming and Evaluation data. Full Docket/PDF found below under Scanned Documents . Dread Fay MD CARDIOLOGY Final Result [facility] * (ABNORMAL) PSA/PROSTATE SPECIFIC ANTIGEN SCREENING (11/05/2024 11:37 AM EDT) [facility] PSA Screening 3.53(H) <2.60 ng/mL 11/05/2024 6:48 PM EDT [facility] Comment: Total PSA test methodology used is the Electrochemiluminescence Immunoassay by [employer]. Total PSA values by differing methodologies cannot be interchanged. For an individual patient, the significance of a PSA level should be interpreted in a broad clinical context, including age, race, family history, digital rectal exam, prostate size, results of prior testing (prostate biopsy, free PSA, PCA3), and use of 5-alpha reductase inhibitors. Considering the high incidence of asymptomatic cancer in the general population that may not pose an ultimate risk to a patient, the decision to recommend urological evaluation or prostate biopsy should be individualized after consideration of all these factors. REFERENCE: Justin Vaughn M.D., M.P.H., Alvino George M.D., Ph.D., Kenneth Macdonald M.D., Moriah Rollins, M.P.H., Lily Padron Sc.D. Effect of Verification Bias on Screening for Prostate Cancer by Measurement of Prostatic Specific Antigen. N Engl J Med 2003,349:335-42. Blood BLOOD SPECIMEN / Unknown Venipuncture / Unknown 11/05/2024 11:37 AM EDT 11/05/2024 11:37 AM EDT us Saige Lion APRN.[employer] [facility] Final Result [facility] [address] [address], [place] * UA DIP, URINE (POC) (11/05/2024 9:15 AM EDT) GLUCOSE UA (POCT) Negative Negative mg/dL [facility] BILIRUBIN UA (POCT) Negative Negative [facility] KETONE UA (POCT) Negative Negative mg/dL [facility] SPECIFIC GRAVITY UA (POCT) 1.025 1.005 - 1.030 [facility] HEMOGLOBIN/BLOOD UA (POCT) Negative Negative [facility] PH UA (POCT) 5.5 4.5 - 8.0 [place] PROTEIN UA (POCT) Negative Negative mg/dL [facility] UROBILINOGEN UA (POCT) 0.2 Normal E.U./dL [facility] NITRITE UA (POCT) Negative Negative [facility] LEUKOCYTES UA (POCT) Negative Negative [facility] COLOR UA (POCT) Yellow [facility] CLARITY UA (POCT) Clear [facility] Urine specimen (specimen) URINE SPECIMEN / Unknown 11/05/2024 9:15 AM EDT Narrative [facility] POINT OF CARE - 11/05/2024 9:15 AM EDT Location:[facility], [address] [place] [address], [facility] us Saige Lion APRN.CNP POC TESTING Final Result [facility] [address] * (ABNORMAL) LIPID PANEL, FASTING (10/17/2024 8:06 AM EDT) [facility] Signature Cholesterol, Total 150 <200 mg/dL 10/17/2024 6:54 PM EDT [facility] Comment: <200 mg/dL, Desirable 200-239 mg/dL, Borderline high >239 mg/dL, High Triglyceride 281(H) <150 mg/dL 10/17/2024 6:54 PM EDT [facility] Comment: <150 mg/dL, Normal 150-199 mg/dL, Borderline high 200-499 mg/dL, High >499 mg/dL, Very high HDL Cholesterol 31(L) >39 mg/dL 6:54 PM EDT [facility] Comment: 40-59 mg/dL, Acceptable >59 mg/dL, High: Negative risk factor for coronary heart disease <40 mg/dL, Low: Positive risk factor for coronary heart disease LDL Cholesterol, Calculated 73 <100 mg/dL 10/17/2024 6:54 PM EDT [facility] Comment: <100 mg/dL, Optimal 100-129 mg/dL, Near optimal/above optimal 130-159 mg/dL, Borderline high 160-189 mg/dL, High >189 mg/dL, Very high Secondary prevention optimal LDL Cholesterol levels are recommended to be <70 mg/dL LDL cholesterol is calculated using the [place]a-NIH equation. Non HDL Cholesterol 119 <130 mg/dL 10/17/2024 6:54 PM EDT [facility] Comment: <130 mg/dL, Optimal 130-159 mg/dL, Near optimal/above optimal 160-189 mg/dL, Borderline high 190-219 mg/dL, High >219 mg/dL, Very high Secondary prevention optimal non HDL Cholesterol levels are recommended to be <100 mg/dL VLDL Cholesterol 43(H) <30 mg/dL 10/18/19 6:54 PM EDT [facility] TC:HDL Ratio 4.84 <5.10 10/17/2024 6:54 PM EDT [facility] LDL:HDL Ratio 2.35 <2.54 10/17/2024 6:54 PM EDT [facility] Comment: Reference: 1. National Cholesterol Education Program ATP III Guideline At-A-Glance Quick Desk Reference: National Heart, Lung, and Blood [place]. National Institutes of Health. 2001: NIH Publication No. 01-3305. 2. An International Atherosclerosis Society position paper: global recommendations for the management of dyslipidemia: executive summary, Atherosclerosis. 2014: 232(2):410-413. Fasting Time 12 hrs 10/17/2024 6:54 PM EDT [facility] Blood BLOOD SPECIMEN / Unknown Venipuncture / Unknown 10/17/2024 8:06 AM EDT 10/17/2024 8:06 AM EDT us Kiko Lopez MD LABORATORY Final Result [facility] [address] [place] [address], [facility] [address] [place] [address] * (ABNORMAL) COMPREHENSIVE METABOLIC PANEL (10/17/2024 8:06 AM EDT) Protein, Total 6.4 6.3 - 8.0 g/dL 10/17/2024 8:35 AM EDT [facility] Albumin 4.0 3.9 - 4.9 g/dL 10/17/2024 8:35 AM EDT [facility] Calcium, Total 9.3 8.5 - 10.2 mg/dL 10/17/2024 8:35 AM EDT [facility] Bilirubin, Total 0.4 0.2 - 1.3 mg/dL 10/17/2024 8:35 AM EDT [facility] Alkaline Phosphatase 94 38 - 113 U/L 10/17/2024 8:35 AM [facility] AST 18 14 - 40 U/L 10/17/2024 8:35 AM [facility] ALT 19 10 - 54 U/L 10/17/2024 8:35 AM [facility] Glucose 96 74 - 99 mg/dL 10/17/2024 8:35 AM [facility] Comment: The [place] Diabetes Association (ADA) provides guidance for cutoff values for fasting glucose and random glucose. The ADA defines fasting as no caloric intake for at least 8 hours. Fasting plasma glucose results between 100 to 125 mg/dL indicate increased risk for diabetes (prediabetes). Fasting plasma glucose results greater than or equal to 126 mg/dL meet the criteria for diagnosis of diabetes. In the absence of unequivocal hyperglycemia, results should be confirmed by repeat testing. In a patient with classic symptoms of hyperglycemia or hyperglycemic crisis, random plasma glucose results greater than or equal to 200 mg/dL meet the criteria for diagnosis of diabetes. Reference: Standards of Medical Care in Diabetes 2016, [place] Diabetes Association. Diabetes Care. 2016.39(Suppl 1). BUN 12 9 - 24 mg/dL 10/17/2024 8:35 AM [facility] Creatinine 1.13 0.73 - 1.22 mg/dL 10/17/2024 8:35 AM [facility] Sodium 140 136 - 144 mmol/L 10/17/2024 8:35 AM [facility] Potassium 4.2 3.7 - 5.1 mmol/L 10/17/2024 8:35 AM [facility] Chloride 110(H) 98 - 107 mmol/L 10/17/2024 8:35 AM [facility] CO2 20(L) 22 - 30 mmol/L 10/17/2024 8:35 AM [facility] Anion Gap 10 8 - 15 mmol/L 10/17/2024 8:35 AM [facility] Estimated Glomerular Filtration Rate 73 >=60 mL/min/1. 73m 10/17/2024 8:35 AM EDT [facility] Comment:Estimated Glomerular Filtration Rate (eGFR) is calculated using the 2020 CKD-EPI creatinine equation. This equation utilizes serum creatinine, sex, and age as parameters. The creatinine assay has traceable calibration to isotope dilution- mass spectrometry. Refer to KDIGO guidelines for clinical interpretation. In patients with unstable renal function, e.g. those with acute kidney injury, the eGFR may not accurately reflect actual GFR. Blood BLOOD SPECIMEN / Unknown Venipuncture / Unknown 10/17/2024 8:06 AM EDT 10/17/2024 8:06 AM EDT us Per Munoz MD, PhD LABORATORY Final Result [facility] [address] [place] [id number] * (ABNORMAL) COMPLETE BLOOD COUNT AND DIFFERENTIAL (10/17/2024 8:06 AM EDT) WBC 9.59 3.70 - 11.00 k/uL 10/17/2024 8:10 AM EDT [facility] RBC 4.56 4.20 - 6.00 m/uL 10/17/2024 8:10 AM EDT [facility] Hemoglobin 13.5 13.0 - 17.0 g/dL 10/17/2024 8:10 AM EDT [facility] Hematocrit 39.8 39.0 - 51.0 % 10/17/2024 8:10 AM EDT [facility] MCV 87.3 80.0 - 100.0 fL 10/17/2024 8:10 AM EDT [facility] MCH 29.6 26.0 - 34.0 pg 10/17/2024 8:10 AM EDT [facility] MCHC 33.9 30.5 - 36.0 g/dL 10/17/2024 8:10 AM EDT [facility] RDW-CV 13.6 11.5 - 15.0 % 10/17/2024 8:10 AM EDT [facility] Platelet Count 211 150 - 400 k/uL 10/17/2024 8:10 AM EDT [facility] MPV 9.3 9.0 - 12.7 fL 10/17/2024 8:10 AM EDT [facility] Neutrophils % 63.0 % 10/17/2024 8:10 AM EDT [facility] Abs Neut 6.03 1.45 - 7.50 k/uL 10/17/2024 8:10 AM EDT [facility] Lymphocytes % 21.4 % 10/17/2024 8:10 AM EDT [facility] Abs Lymph 2.05 1.00 - 4.00 k/uL 10/17/2024 8:10 AM EDT [facility] Monocytes % 10.2 % 10/17/2024 8:10 AM EDT [facility] Abs [place] 0.98(H) <0.87 k/uL 10/17/2024 8:10 AM EDT [facility] Eosinophils % 3.5 % 10/17/2024 8:10 AM EDT [facility] Abs Eosin 0.34 <0.46 k/uL 10/17/2024 8:10 AM EDT [facility] Basophils % 0.8 % 10/17/2024 8:10 AM EDT [facility] Abs Baso 0.08 <0.11 k/uL 10/17/2024 8:10 AM EDT [facility] Immature Granulocytes % 1.1 % 10/17/2024 8:10 AM EDT [facility] Abs Immature Gran 0.11(H) <0.10 k/uL 10/17/2024 8:10 AM EDT [facility] NRBC 0.0 /100 WBC 10/17/2024 8:10 AM EDT [facility] Absolute nRBC <0.01 <0.01 k/uL 10/17/2024 8:10 AM EDT [facility] Diff Type Auto 10/17/2024 8:10 AM EDT [facility] Blood BLOOD SPECIMEN / Unknown Venipuncture / Unknown 10/17/2024 8:06 AM EDT 10/17/2024 8:06 AM EDT us Per Munoz MD, PhD LABORATORY Final Result [facility] [address] [place] [address] * CT CHEST WO IVCON (10/03/2024 9:52 AM EDT) Anatomical Region Laterality Modality Chest Computed Tomogra phy 10/03/2024 9:51 AM EDT Impressions 10/04/2024 2:10 PM EDT IMPRESSION: 1. Cluster of peribronchial nodules in the left lower lobe, likely related to bronchiolitis. The 1 cm nodule seen in the left lower lobe on prior CT abdomen dated 07/01/2024 in the same area has improved in size. 2. Additional patchy groundglass opacities in the medial aspect of both lower lobes, likely inflammatory/infectious in nature. 3. No new or increasing intrathoracic lymphadenopathy is noted. Commutator Repairer: GIANNI Transcribe Date/Time: Oct 04 2024 1:51P Dictated by : PARADISE PRINCE MD This examination was interpreted and the report reviewed and electronically signed by: PARADISE PRINCE MD on Oct 04 2024 2:08PM EST Narrative 10/04/2024 2:10 PM EDT * * *Final Report* * * DATE OF EXAM: Oct 03 2024 9:51AM [facility] 0541 - CT CHEST WO IVCON / PROCEDURE REASON: Lung nodules * * * * Physician Interpretation * * * * EXAMINATION: CHEST CT WITHOUT CONTRAST CLINICAL HISTORY: Follow-up lung nodules seen on CT abdomen dated 07/01/2024 Technique: Spiral CT acquisition of the chest from the thoracic inlet to the upper abdomen without contrast. MQ: CTCWO_6 CT Radiation dose: Integrated Dose-length product (DLP) for this visit = 542 mGy*cm CT Dose Reduction Employed: Automated exposure control(AEC) and iterative recon Comparison: 01/04/2024, CT abdomen dated 07/01/2024 RESULT: Limitations: None. Lines, tubes, and devices: Left ICD device is in place, with its lead in the right ventricle. Lung parenchyma and airways: A cluster of peribronchial nodules is noted in the left lower lobe, image 169. The 1 cm nodule seen in the left lower lobe on prior CT abdomen dated 07/01/2024 in the same area has improved in size. There are additional patchy groundglass opacities in the medial aspect of both lower lobes, for example in the medial left lower lobe at image 246. Few additional tiny pulmonary nodules are noted, which are nonspecific. For example, there is a 3 mm nodule adjacent to the minor fissure, likely a lymph node, image 147. No consolidation is noted. Central airways are patent. Mild biapical scarring is noted, likely post-inflammatory. Pleural space: No pleural effusion. No pleural thickening. Lower neck, lymph nodes, and mediastinum: The imaged thyroid gland is normal. No lymphadenopathy in the supraclavicular, axillary, mediastinal, or hilar regions. Heart, pericardium, and thoracic vessels: Mild ectasia of the aortic root is noted, measuring 4.1 cm, although evaluation is limited on this non-ECG gated noncontrast exam. The rest of the thoracic aorta is normal in caliber. The arch vessel branching pattern is bovine (i.e., common trunk of the innominate and left common carotid artery). Central pulmonary arteries are normal in size. There is borderline left atrial enlargement. Diffuse coronary calcifications are noted. No pericardial effusion is noted. Bones and soft tissues: No destructive bone lesion. Chest wall is unremarkable. T9 vertebral body hemangioma is noted. L2 hemangioma is partially imaged. Upper abdomen: Mild diverticulosis of the imaged colon is noted. Small low-attenuation lesion in the left hepatic lobe is unchanged and likely benign, image 540. Localizer images: No additional findings. - Procedure Note Provider, [facility] [place] - 10/04/2024 * * *Final Report* * * DATE OF EXAM: Oct 03 2024 9:51AM [facility] 0541 - CT CHEST WO IVCON / PROCEDURE REASON: Lung nodules * * * * Physician Interpretation * * * * EXAMINATION: CHEST CT WITHOUT CONTRAST CLINICAL HISTORY: Follow-up lung nodules seen on CT abdomen dated 07/01/2024 Technique: Spiral CT acquisition of the chest from the thoracic inlet to the upper abdomen without contrast. MQ: CTCWO_6 CT Radiation dose: Integrated Dose-length product (DLP) for this visit = 542 mGy*cm CT Dose Reduction Employed: Automated exposure control(AEC) and iterative recon Comparison: 01/04/2024, CT abdomen dated 07/01/2024 RESULT: Limitations: None. Lines, tubes, and devices: Left ICD device is in place, with its lead in the right ventricle. Lung parenchyma and airways: A cluster of peribronchial nodules is noted in the left lower lobe, image 169. The 1 cm nodule seen in the left lower lobe on prior CT abdomen dated 07/01/2024 in the same area has improved in size. There are additional patchy groundglass opacities in the medial aspect of both lower lobes, for example in the medial left lower lobe at image 246. Few additional tiny pulmonary nodules are noted, which are nonspecific. For example, there is a 3 mm nodule adjacent to the minor fissure, likely a lymph node, image 147. No consolidation is noted. Central airways are patent. Mild biapical scarring is noted, likely post-inflammatory. Pleural space: No pleural effusion. No pleural thickening. Lower neck, lymph nodes, and mediastinum: The imaged thyroid gland is normal. No lymphadenopathy in the supraclavicular, axillary, mediastinal, or hilar regions. Heart, pericardium, and thoracic vessels: Mild ectasia of the aortic root is noted, measuring 4.1 cm, although evaluation is limited on this non-ECG gated noncontrast exam. The rest of the thoracic aorta is normal in caliber. The arch vessel branching pattern is bovine (i.e., common trunk of the innominate and left common carotid artery). Central pulmonary arteries are normal in size. There is borderline left atrial enlargement. Diffuse coronary calcifications are noted. No pericardial effusion is noted. Bones and soft tissues: No destructive bone lesion. Chest wall is unremarkable. T9 vertebral body hemangioma is noted. L2 hemangioma is partially imaged. Upper abdomen: Mild diverticulosis of the imaged colon is noted. Small low-attenuation lesion in the left hepatic lobe is unchanged and likely benign, image 540. Localizer images: No additional findings. - IMPRESSION IMPRESSION: 1. Cluster of peribronchial nodules in the left lower lobe, likely related to bronchiolitis. The 1 cm nodule seen in the left lower lobe on prior CT abdomen dated 07/01/2024 in the same area has improved in size. 2. Additional patchy groundglass opacities in the medial aspect of both lower lobes, likely inflammatory/infectious in nature. 3. No new or increasing intrathoracic lymphadenopathy is noted. Commutator Repairer: PSCB Transcribe Date/Time: Oct 04 2024 1:51P Dictated by : PARADISE PRINCE MD This examination was interpreted and the report reviewed and electronically signed by: PARADISE PRINCE MD on Oct 04 2024 2:08PM EST us Moriah Lawrence PUBLICATION DISTRIBUTOR.FINISHER [employer] CT-PAMA Final Result * CARDIAC IMPLANTABLE DEVICE CHECK REMOTE (09/17/2024 1:00 AM EDT) Date Time Interrogation Session [id number] [facility] Type Interrogation Session Remote [facility] Implantable Pulse Generator Surgical Assistant Certified [employer] [facility] Implantable Pulse Generator Type Defibrillator [facility] Implantable Pulse Generator Model Acticor 7 VR-T DX [facility] Implantable Pulse Generator Serial Number [id number] [facility] Implantable Pulse Generator Implant Date 20200109 [facility] Battery Remaining Percentage 84.00 [facility] Battery Voltage 3.110 [facility] Battery LINE WALKER Trigger 2.850 [facility] Battery Status MOS [facility] Capacitor Charge Time 9.300 [facility] Eduin Statistic RV Percent Paced 0.00 [facility] Atrial Tachy Statistic AT/AF [place] Percent 0.00 [facility] Lead Channel Sensing Intrinsic Amplitude 3.100 [facility] Lead Channel Setting Sensing Sensitivity 1.00 [facility] Lead Channel Measurements Date and Time 2024-09-17 [facility] Lead Channel Sensing Intrinsic Amplitude 19.000 [facility] Lead Channel Setting Sensing Sensitivity 0.80 [facility] Lead Channel Impedance Value 481 [facility] Lead Channel Measurements Date and Time 2024-09-17 [facility] Lead Channel Setting Pacing Amplitude 2.000 [facility] Lead Channel Setting Pacing Pulse Width 0.4 [facility] Eduin Setting Mode (NBG Code) VDI [facility] Eduin Setting Lower Rate Limit 40 [facility] Therapy Statistic Recent Shocks Delivered 0 [facility] Therapy Statistic Recent Shocks Aborted 0 [facility] Therapy Statistic Recent ATP Delivered 0 [facility] Shock Measured Impedance 69 [facility] Lead Channel Setting Sensing Polarity Bipolar [facility] Lead Channel Setting Sensing Polarity Bipolar [facility] Lead Channel Setting Pacing Polarity Bipolar [facility] Zone Setting Type Category Zone_ATAF [facility] Rate 1 200 [facility] Zone Setting Status Monitor M[facility] C[facility] Zone ID 7 [facility] Zone Setting Type Category VF [facility] C[facility] Rate 1 240 [facility] Therapies Burst,40.0J,40.0J, 40.0J x 6 [facility] Zone Setting Status On [facility] ID 8 [facility] Zone Setting Type Category VT [facility] CARD[facility] Rate 1 171 [facility] Zone Setting Status Monitor [facility] ID 9 [facility] Zone Setting Type Category VT [facility] CARD[facility] Rate 1 182 [facility] Therapies 4 x Burst,4 x Burst,40.0J,40.0J, 40.0J x 6 [facility] Zone Setting Status On [facility] ID 10 [facility] Implantable Lead Surgical Assistant Certified [employer] [facility] Implantable Lead Model [id number] Plexa ProMRI S DX 65/15 [facility] Implantable Lead Location Right Ventricle [facility] Implantable Lead Connection Status Connected [facility] Implantable Lead Serial Number [id number] [facility] Implantable Lead Implant Date [id number] [facility] 09/17/2024 1:00 AM EDT Narrative [facility] - 10/06/2024 3:46 PM EDT Alert: Yellow A Yellow Alert was reported by the device: Details for arrhythmia episode received (all types) Episode details were received for a spontaneous Slow nsT episode, which was detected on Sep 16, 2024, 10:49:57 AM Non-sustained Tachycardia: SVT * Stored EGMs are consistent with or suggestive of non-sustained Supraventricular Tachycardia * Total number of events: There have been 4 SVT detections marked as slow nsVT since the last processed remote on 08/29/24 NOTE TO PROVIDERS: Cardiac Implanted Devices Flowsheets contain detailed Programming and Evaluation data. Full Docket/PDF found below under Scanned Documents . Procedure Note Dread Fay MD - 10/06/2024 Alert: Yellow A Yellow Alert was reported by the device: Details for arrhythmia episode received (all types) Episode details were received for a spontaneous Slow nsT episode, whichwas detected on Sep 16, 2024, 10:49:57 AM Non-sustained Tachycardia: SVT * Stored EGMs are consistent with or suggestive of non-sustainedSupraventricular Tachycardia * Total number of events: There have been 4 SVT detections marked as slownsVT since the last processed remote on 08/29/24 NOTE TO PROVIDERS: Cardiac Implanted Devices Flowsheets contain detailedProgramming and Evaluation data. Full Docket/PDF found below under Scanned Documents . us Dread Fay MD CARDIOLOGY Final Result [facility] * COLONOSCOPY SCREENING (09/08/2022 11:11 AM EDT) Anatomical Region Laterality Modality Other 09/08/2022 11:1 1 AM EDT Narrative 09/08/2022 12:44 PM EDT A31 Gastrointestinal Endoscopy Patient Name: Rober Carreno Procedure Date: 09/08/2022 11:11 AM Date of : 1960 Admit Type: Outpatient Age: 62 Room: [address] Gender: Male Note Status: Communications Programmer Override Attending MD: Per Munoz MD Procedure: Colonoscopy Indications: Crohn's disease of the small bowel and colon Providers: Per Munoz MD Patient Profile: This is a 62 year old male. Last Colonoscopy: 5 years ago. Referring Physician: Per Munoz MD (Referring MD) Medicines: Fentanyl 175 micrograms IV, Midazolam 10 mg IV Complications: No immediate complications. Requesting Provider: Procedure: Pre-Anesthesia Assessment: - Prior to the procedure, a History and Physical was performed, and patient medications and allergies were reviewed. The patient is competent. The risks and benefits of the procedure and the sedation options and risks were discussed with the patient. All questions were answered and informed consent was obtained. Patient identification and proposed procedure were verified by the physician in the pre-procedure area. Mental Status Examination: normal. CV Examination: regular rate and rhythm. ASA Grade Assessment: III - A patient with severe systemic disease. After reviewing the risks and benefits, the patient was deemed in satisfactory condition to undergo the procedure. The anesthesia plan was to use moderate sedation / analgesia (conscious sedation). Immediately prior to administration of medications, the patient was re-assessed for adequacy to receive sedatives. The heart rate, respiratory rate, oxygen saturations, blood pressure, adequacy of pulmonary ventilation, and response to care were monitored throughout the procedure. The physical status of the patient was re-assessed after the procedure. After I obtained informed consent, the scope was passed under direct vision. Throughout the procedure, the patient's blood pressure, pulse, and oxygen saturations were monitored continuously. The Colonoscope was introduced through the anus and advanced to 5 cm into the ileum. The colonoscopy was performed without difficulty. The patient tolerated the procedure well. The terminal ileum was photographed. The quality of the bowel preparation was good. Moderate Sedation: Moderate (conscious) sedation was administered by the endoscopy nurse and supervised by the endoscopist. The patient's oxygen saturation, heart rate, blood pressure and response to care were monitored. The administration of moderate sedation was initiated at 11:25 AM. Findings: Patchy inflammation, moderate in severity and characterized by erythema was found at 5 cm from the Ileocolonic Anastomosis. Biopsies were taken with a cold forceps for histology. The ileal surgical anastomosis contained a benign-appearing, intrinsic moderate stenosis measuring 5 cm (in length) x 1 cm (inner diameter) that was traversed. A TTS dilator was passed through the scope. Dilation with a 12-13.5-15 mm colonic balloon dilator was performed. The colon (entire examined portion) appeared normal. Four biopsies were taken every 10 cm with a cold forceps from the entire colon for Crohn's disease surveillance. These biopsy specimens from the ascending colon, transverse colon, descending colon and rectosigmoid colon were sent to Pathology. Impression: - Crohn's disease with ileitis. Biopsied. - Stricture at the ileal surgical anastomosis. Dilated. - Rutgeers score i2b - The entire examined colon is normal. Biopsied. Estimated Blood Loss: Estimated blood loss was minimal. Recommendation: - Discharge patient to home. - Advance diet as tolerated. - Await pathology results. - Patient has a contact number available for emergencies. The signs and symptoms of potential delayed complications were discussed with the patient. Return to normal activities tomorrow. Written discharge instructions were provided to the patient. - Continue present medications. - Repeat colonoscopy is recommended. The colonoscopy date will be determined after pathology results from today's exam become available for review. Procedure Code(s): --- Professional --- 22237, Colonoscopy, flexible; with transendoscopic balloon dilation 83203, Colonoscopy, flexible; with biopsy, single or multiple Diagnosis Code(s): --- Professional --- K50.012, Crohn's disease of small intestine with intestinal obstruction K50.812, Crohn's disease of both small and large intestine with intestinal obstruction CPT copyright 2020 [place] [employer]. All rights reserved. The codes documented in this report are preliminary and upon customs examiner review may be revised to meet current compliance requirements. Attending Participation: I personally performed the entire procedure. Scope In: 11:35:03 AM Scope Out: 12:36:03 PM MD Per Smith MD 09/08/2022 12:42:32 PM This report has been signed electronically by Per Munoz MD Number of Addenda: 0 Note Initiated On: 09/08/2022 11:11 AM Per Munoz MD, PhD DIGESTIVE DISEASE Edit ed Result - Final from Last 3 Months or Most Recently Relevant to Health Maintenance Insurance Advance Directives * Full Code (Latest Code Status on File) Date Activated Date Inactivated Comments 06/21/2022 4:17 PM 06/26/2022 9:41 PM Question Answer Comments Full Code Order Discussed With: Patient Care Teams Design Director Relationship Specialty Start Date End Date Shade Leon [address] [place] [address] PCP - General 06/22/00 Damir Witt MD [address] [place] [address] Primary Staff Physician Cardiology 12/13/22
--- OUTSIDE RECORDS SUMMARY | 2024-12-16 11:01 | XMS_ITS | Encounter Summary ---
Author Organization [facility] Address [address] [place] [address] Care Team Providers Care Laser Specialist Name Role Phone Shade Leon Primary Care Provider [phone] Damir Witt MD Unavailable [phone] Source Comments In the event this information is protected by the Federal Confidentiality of Alcohol and Drug AbusePatient Records regulations: The Federal rules restrict any use of the information to criminally investigate or prosecute any alcohol or drug abuse patient.[facility] Encounter Details Date Type Department Care Team (Late st Contact Info) Description 05/08/2024 Patient Msg Cardiology [address] [place] [place] [id number] Provider, Ccf Remote monitoring Social History Tobacco Use Types Packs/Day Years [...] place to sleep or slept in a snf (including now)? No 06/24/2022 Area Deprivation Index Answer Date Oscar rded National Score (1-100), lower number is lower ri sk 89 08/09/2022 State Score (1-10), lower number is lower risk 8 08/09/2022 Data from: https://www.neighborhoodatlas.medicine.[facility].edu/. Last address used for calculation [address] [...] EDT [facility] Gastroenterology [address] [place] [address] Per Andres MD, PhD [address] [place] [address] Follow Up 12/30/2024 12:45 PM EDT Appointment Cardiology [address] [place] [address] DEVICE CHECK FOR MRI CLEARENCE 12/30/2024 2:10 PM EDT Appointment MRI Q 0 [id number] [id number] DUE TO PT IMPLANT- IF APPT NEEDS TO BE RESCHEDULED IT MUST BE SENT TO THE FOLLOWING STAFF MESSAGE ADDRESS: IMAGING IMPLANTS [[id number]] ICD approved to schedule by . 01/28/2025 11:00 AM EST Appointment [facility] [place] Scan [address] [place] [address] Crohn's disease with complication, unspecified gastrointestinal tract location (HCC) [K50.919] 01/28/2025 12:30 PM EST Appointment [facility] [place] Scan [address] [place] [address] Crohn's disease with complication, unspecified gastrointestinal tract location (HCC) [K50.919] 02/17/2025 1:30 PM EST Office Visit Vascular Medicine [address] [place] [address] Coronary artery calcification; Aortic root dilation 02/17/2025 2:45 PM EST Office Visit Preventive Cardiology [address] [place] [id number] Mary Fatima, METALS ANALYST.CERTIFIED ADAPTED PHYSICAL EDUCATOR [address] [place] [address] Coronary artery calcification; Aortic root dilation documented as of this encounter Goals Goal Patient Goal Type Associated Problems Recent Progress Patient-Stated? Author Blood Pressure < 130/80 Blood Pressure 126/70(2024 2:53 PM EDT) No Moriah Sullivan, RN documented as of this encounter Visit Diagnoses Not on filedocumented in this encounter Care Teams Laser Specialist Relationship Specialty Start Date End Date Shade Leon [address] [place] [address] PCP - General 06/22/00 Damir Witt MD [address] [place] [address] Primary Staff Physician Cardiology 12/13/22 documented as of this encounter
--- OUTSIDE RECORDS SUMMARY | 2024-12-16 11:01 | XMS_ITS | Encounter Summary ---
Author Organization [facility] Address [address] [place] [address] Care Team Providers Care Military Professional Name Role Phone Edward Shade Lam Primary Care Provider [phone] Damir Witt MD Unavailable [phone] Source Comments In the event this information is protected by the Federal Confidentiality of Alcohol and Drug AbusePatient Records regulations: The Federal rules restrict any use of the information to criminally investigate or prosecute any alcohol or drug abuse patient.[facility] Encounter Details Date Type Department Care Team (Late st Contact Info) Description 04/15/2024 Get Medical Advice Gastroenterology [address] [place] [address] Per Andres MD, PhD [address] [place] [address] Blood test Social History Tobacco Use Types Packs/Day Years [...] is lower risk 8 08/09/2022 Data from: https://www.neighborhoodatlas.medicine.[facility].edu/. Last address used for calculation [address] 08/09/2022 Sex and Gender Information Value Date Recorded Sex Assigned at Not on file Legal Sex Male 9:36 AM EST Gender Identity Not on file Sexual Orientation Not on file documented as of this encounter Miscellaneous Notes * Telephone Encounter - Brittny Callejas LPN - 04/17/2024 10:00 AM EST Received return call from patient assisted with scheduling a virtual visit 05/02/24 4:[address] Moss. Brittny Callejas LPN * Telephone Encounter - Brittny Callejas LPN - 04/17/2024 8:00 AM EST Called patient unable to reach left voicemail for return call to . Brittny Callejas LPN * Telephone Encounter - Brittny Callejas LPN - 04/15/2024 2:24 PM EST Images from the original note were not included. Per Andres MD, PhD You32 minutes ago (1:51 PM) Hi Angel Mart added order for CRP. Can you find out if it can be added on? Thanks, MB Call placed to lab client services spoke with rep Murcia and requested the CRP be added, Rep stated the sample is viable to perform this test. Brittny Callejas LPN documented in this encounter Plan of Treatment Upcoming Encounters Date Type Department Care Team (Latest Contact Info) Description 12/26/2024 4:[address] [facility] Gastroenterology [address] [address] Per Andres MD, PhD [address] [place] [address] Follow Up 12/30/2024 12:45 PM EDT Appointment Cardiology [address] [place], [place] [id number] DEVICE CHECK FOR MRI CLEARENCE 12/30/2024 2:10 PM EDT Appointment MRI Q [address] [address] DUE TO PT IMPLANT- IF APPT NEEDS TO BE RESCHEDULED IT MUST BE SENT TO THE FOLLOWING STAFF MESSAGE ADDRESS: IMAGING IMPLANTS [[id number]] ICD approved to schedule by . 01/28/2025 11:00 AM EST Appointment [facility] [place] Scan [address] [place] [address] Crohn's disease with complication, unspecified gastrointestinal tract location (HCC) [K50.919] 01/28/2025 12:30 PM EST Appointment [facility] [place] Scan [address] [place] [address] Crohn's disease with complication, unspecified gastrointestinal tract location (HCC) [K50.919] 02/17/2025 1:30 PM EST Office Visit Vascular Medicine [address] [place] [address] Coronary artery calcification; Aortic root dilation 02/17/2025 2:45 PM EST Office Visit Preventive Cardiology [address] [place] [address] Mary Fatima, PAY STATION ATTENDANT.MISSION COORDINATOR [address] [place] [address] Coronary artery calcification; Aortic root dilation documented as of this encounter Goals Goal Patient Goal Type Associated Problems Recent Progress Patient-Stated? Author Blood Pressure < 130/80 Blood Pressure 126/70(2024 2:53 PM EDT) No Moriah Sullivan, RN documented as of this encounter Visit Diagnoses Not on filedocumented in this encounter Care Teams Military Professional Relationship Specialty Start Date End Date Shade Leon [address] [place] [address] PCP - General 06/22/00 Damir Witt MD [address] [place] [address] Primary Staff Physician Cardiology 12/13/22 documented as of this encounter
--- OUTSIDE RECORDS SUMMARY | 2024-12-16 11:01 | XMS_ITS | Clinical Summary ---
Author Organization [facility] Address [address] [place] [address] Care Team Providers Care Bead Forming Machine Set Up Operator Name Role Phone Unavailable Primary Care Provider Unavailabl e Social History Tobacco Use Types Packs/Day Years Used Date Smoking Tobacco: Never Assessed Sex and Gender Information Value Date Recorded Sex Assigned at Not on file Legal Sex Male 12:31 AM EDT Gender Identity Not on file Sexual Orientation Not on file Last Filed Vital Signs Vital Sign Reading Time Taken Comments Blood Pressure 130/88 04/06/2020 9:34 AM EST Pulse - - Temperature - - Respiratory Rate - - Oxygen Saturation 98% 04/06/2020 9:31 AM EST Inhaled Oxygen Concentration - - Weight 94.3 kg (208 lb) 04/06/2020 9:30 AM EST Height 193 cm (6' 4 ) 04/06/2020 9:28 AM EST Body Mass Index 25.32 04/06/2020 9:28 AM EST Plan of Treatment Not on file
--- OUTSIDE RECORDS SUMMARY | 2024-12-16 11:01 | XMS_ITS | Encounter Summary ---
Author Organization [facility] Address [address] [place] [address] Care Team Providers Care Change Management Consultant Name Role Phone Shade Leon Primary Care Provider [phone] Damir Witt MD Unavailable [phone] Source Comments In the event this information is protected by the Federal Confidentiality of Alcohol and Drug AbusePatient Records regulations: The Federal rules restrict any use of the information to criminally investigate or prosecute any alcohol or drug abuse patient.[facility] Encounter Details Date Type Department Care Team (Late st Contact Info) Description 11/24/2024 Get Medical Advice Urology [address] [place] [phone] Saige Lion APRN.LIQUID COMPOUNDER [address] [place] [phone] MRI Social History Tobacco Use Types Packs/Day [...] place to sleep or slept in a fdc (including now)? No 06/24/2022 Area Deprivation Index Answer Date Oscar rded National Score (1-100), lower number is lower ri sk 89 08/09/2022 State Score (1-10), lower number is lower risk 8 08/09/2022 Data from: https://www.neighborhoodatlas.medicine.[facility].edu/. Last address used for calculation [...] Contact Info) Description 12/26/2024 4:30 PM EDT [facility] Gastroenterology [address] [address] Per Andres MD, PhD [address] [place], [place] [phone] Follow Up 12/30/2024 12:45 PM EDT Appointment Cardiology [address] [place] [address] DEVICE CHECK FOR MRI CLEARENCE 12/30/2024 2:10 PM EDT Appointment MRI Q [address] [address] DUE TO PT IMPLANT- IF APPT NEEDS TO BE RESCHEDULED IT MUST BE SENT TO THE FOLLOWING STAFF MESSAGE ADDRESS: IMAGING IMPLANTS [[id number]] ICD approved to schedule by . 01/28/2025 11:00 AM EST Appointment [facility] [place] Scan [address] [place] [address] Crohn's disease with complication, unspecified gastrointestinal tract location (HCC) [K50.919] 01/28/2025 12:30 PM EST Appointment [facility] [place] Scan [address] [place] [address] Crohn's disease with complication, unspecified gastrointestinal tract location (HCC) [K50.919] 02/17/2025 1:30 PM EST Office Visit Vascular Medicine [address] [place] [address] Coronary artery calcification; Aortic root dilation 02/17/2025 2:45 PM EST Office Visit Preventive Cardiology [address] [place] [address] Mary Fatima, INSURANCE BILLER.LIQUID COMPOUNDER [address] [place] [address] Coronary artery calcification; Aortic root dilation documented as of this encounter Goals Goal Patient Goal Type Associated Problems Recent Progress Patient-Stated? Author Blood Pressure < 130/80 Blood Pressure 126/70(2024 2:53 PM EDT) No Moriah Sullivan, RN documented as of this encounter Visit Diagnoses Not on filedocumented in this encounter Care Teams Change Management Consultant Relationship Specialty Start Date End Date Shade Leon [address] [place] [address] PCP - General 06/22/00 Damir Witt MD [address] [place] [id number] Primary Staff Physician Cardiology 12/13/22 documented as of this encounter
--- OUTSIDE RECORDS SUMMARY | 2024-12-16 11:01 | XMS_ITS | Encounter Summary ---
Author Organization [facility] Address [facility] [place] [address] Care Team Providers Care Manager Validation Name Role Phone Shade Leon Primary Care Provider [phone] Damir Witt MD Unavailable [phone] Source Comments In the event this information is protected by the Federal Confidentiality of Alcohol and Drug AbusePatient Records regulations: The Federal rules restrict any use of the information to criminally investigate or prosecute any alcohol or drug abuse patient.[facility] Encounter Details Date Type Department Care Team (Late st Contact Info) Description 04/17/2023 Patient Msg Internal Medicine [address] [place], [place] [phone] Provider, Ccf IBD VIRTUAL EDUCATION for you by Drs. Claudio & Nicole-- JOIN US! Social History Tobacco Use Types Packs/Day Years [...] is lower risk 8 08/09/2022 Data from: https://www.neighborhoodatlas.medicine.[facility].edu/. Last address used for calculation [...] Description 12/26/2024 4:30 PM EDT [facility] Gastroenterology [address] [address] Per Andres MD, PhD [address] [place], [place] [phone] Follow Up 12/30/2024 12:45 PM EDT Appointment Cardiology [address] [place] [address] DEVICE CHECK FOR MRI CLEARENCE 12/30/2024 2:10 PM EDT Appointment MRI Q [address] [address] DUE TO PT IMPLANT- IF APPT NEEDS TO BE RESCHEDULED IT MUST BE SENT TO THE FOLLOWING STAFF MESSAGE ADDRESS: IMAGING IMPLANTS [[id number]] ICD approved to schedule by . 01/28/2025 11:00 AM EST Appointment [facility] [place] Scan [address] [place] [address] Crohn's disease with complication, unspecified gastrointestinal tract location (HCC) [K50.919] 01/28/2025 12:30 PM EST Appointment [facility] [place] Scan [address] [place] [address] Crohn's disease with complication, unspecified gastrointestinal tract location (HCC) [K50.919] 02/17/2025 1:30 PM EST Office Visit Vascular Medicine [address] [place] [address] Coronary artery calcification; Aortic root dilation 02/17/2025 2:45 PM EST Office Visit Preventive Cardiology [address] [place] [address] Mary Fatima, DISH WASHER.SALICYLIC ACID BLENDER [address] [place] [address] Coronary artery calcification; Aortic root dilation documented as of this encounter Visit Diagnoses Not on filedocumented in this encounter Care Teams Manager Validation Relationship Specialty Start Date End Date Shade Leon [address] [place] [address] PCP - General 06/22/00 Damir Witt MD [address] [place] [address] Primary Staff Physician Cardiology 12/13/22 documented as of this encounter
--- OUTSIDE RECORDS SUMMARY | 2024-12-16 11:01 | XMS_ITS | Encounter Summary ---
Author Organization [facility] Address [address] [place] [address] Phone Care Team Providers Care Mobile Paramedical Examiner Name Role Phone Madi Leon DO Primary Care Provider [phone] Encounter Details Date Type Department Care Team (Late st Contact Info) Description 10/05/2020 Orders Only [facility] [address] [place] [address] Conversion, Onbase Social History Tobacco Use Types Packs/Day Years Used Date Smoking Tobacco: Never Assessed Sex and Gender Information Value Date Recorded Sex Assigned at Not on file Legal Sex Male 5:08 PM EST Gender Identity Not on file Sexual Orientation Not on file documented as of this encounter Plan of Treatment Scheduled Orders Name Type Priority Associated Diagnoses Orde r Schedule OUTSIDE LAB SCAN Lab Ordered: 10/05/2020 documented as of this encounter Visit Diagnoses Not on filedocumented in this encounter Care Teams Mobile Paramedical Examiner Relationship Specialty Start Date End Date Madi Leon DO PCP - General [birth year]1979 documented as of this encounter
--- OUTSIDE RECORDS SUMMARY | 2024-12-16 11:01 | XMS_ITS | Encounter Summary ---
Author Organization [facility] Address [address] [place] [address] Care Team Providers Care Medical Service Representative Name Role Phone Shade Leon Primary Care Provider [phone] Damir Witt MD Unavailable [phone] Source Comments In the event this information is protected by the Federal Confidentiality of Alcohol and Drug AbusePatient Records regulations: The Federal rules restrict any use of the information to criminally investigate or prosecute any alcohol or drug abuse patient.[facility] Encounter Details Date Type Department Care Team (Late st Contact Info) Description 05/22/2024 Patient Msg Radiology [address] [place] [address] Provider, Ccf CAT SCAN APPOINTMENT Social History Tobacco Use Types Packs/Day Years [...] is lower risk 8 08/09/2022 Data from: https://www.neighborhoodatlas.medicine.[facility].edu/. Last address used for calculation [address] 08/09/2022 Sex and Gender Information Value Date Recorded Sex Assigned at Not on file Legal Sex Male 9:36 AM EST Gender Identity Not on file Sexual Orientation Not on file documented as of this encounter Plan of Treatment Upcoming Encounters Date Type Department Care Team (Latest Contact Info) Description 12/26/2024 4:30 PM EDT [facility] Gastroenterology [address] [place] [address] Per Andres MD, PhD [address] [place], [place] [phone] Follow Up 12/30/2024 12:45 PM EDT Appointment Cardiology [address] [place] [phone] DEVICE CHECK FOR MRI CLEARENCE 12/30/2024 2:10 PM EDT Appointment MRI Q [address] [place] [address] DUE TO PT IMPLANT- IF APPT NEEDS TO BE RESCHEDULED IT MUST BE SENT TO THE FOLLOWING STAFF MESSAGE ADDRESS: IMAGING IMPLANTS [[id number]] ICD approved to schedule by . 01/28/2025 11:00 AM EST Appointment [facility] [place] Scan [address] [place] [address] Crohn's disease with complication, unspecified gastrointestinal tract location (HCC) [K50.919] 01/28/2025 12:30 PM EST Appointment [facility] [place] Scan [address] [place] [address] Crohn's disease with complication, unspecified gastrointestinal tract location (HCC) [K50.919] 02/17/2025 1:30 PM EST Office Visit Vascular Medicine [address] [place] [address] Coronary artery calcification; Aortic root dilation 02/17/2025 2:45 PM EST Office Visit Preventive Cardiology [address] [place] [address] Mary Fatima, TOUR LEADER.SURTASS ANALYST [address] [place] [address] Coronary artery calcification; Aortic root dilation documented as of this encounter Goals Goal Patient Goal Type Associated Problems Recent Progress Patient-Stated? Author Blood Pressure < 130/80 Blood Pressure 126/70(2024 2:53 PM EDT) No Moriah Sullivan, RN documented as of this encounter Visit Diagnoses Not on filedocumented in this encounter Care Teams Medical Service Representative Relationship Specialty Start Date End Date Shade Leon [address] [place] [address] PCP - General 06/22/00 Damir Witt MD [address] [place] [address] Primary Staff Physician Cardiology 12/13/22 documented as of this encounter
--- OUTSIDE RECORDS SUMMARY | 2024-12-16 11:01 | XMS_ITS | Encounter Summary ---
Author Organization [facility] Address [address] [place] [address] Care Team Providers Care Cloud Security Architect Name Role Phone Shade Leon Primary Care Provider [phone] Damir Witt MD Unavailable [phone] Source Comments In the event this information is protected by the Federal Confidentiality of Alcohol and Drug AbusePatient Records regulations: The Federal rules restrict any use of the information to criminally investigate or prosecute any alcohol or drug abuse patient.[facility] Encounter Details Date Type Department Care Team ([facility] Contact Info) Description 01/20/2023 Patient Msg Gastroenterology [address] [place] [address] Anastasiia Blood, [facility] [address] [place] [address] Med Update? Social History Tobacco Use Types Packs/Day Years [...] is lower risk 8 08/09/2022 Data from: https://www.neighborhoodatlas.medicine.[facility].edu/. Last address used for calculation [address] [...] Description 12/26/2024 4:30 PM EDT [facility] Gastroenterology [address] [address] Per Andres MD, PhD [address] [place], [place] [phone] Follow Up 12/30/2024 12:45 PM EDT Appointment Cardiology [address] [place] [address] DEVICE CHECK FOR MRI CLEARENCE 12/30/2024 2:10 PM EDT Appointment MRI Q [address], [place] [address] DUE TO PT IMPLANT- IF APPT NEEDS TO BE RESCHEDULED IT MUST BE SENT TO THE FOLLOWING STAFF MESSAGE ADDRESS: IMAGING IMPLANTS [[id number]] ICD approved to schedule by . 01/28/2025 11:00 AM EST Appointment [facility] [place] Scan [address] [place] [address] Crohn's disease with complication, unspecified gastrointestinal tract location (HCC) [K50.919] 01/28/2025 12:30 PM EST Appointment [facility] [place] Scan [address] [place] [address] Crohn's disease with complication, unspecified gastrointestinal tract location (HCC) [K50.919] 02/17/2025 1:30 PM EST Office Visit Vascular Medicine [address] [place] [address] Coronary artery calcification; Aortic root dilation 02/17/2025 2:45 PM EST Office Visit Preventive Cardiology [address] [place] [address] Mary Fatima, HEALTH BENEFITS SPECIALIST.RESEARCH FELLOW [address] [place] [address] Coronary artery calcification; Aortic root dilation documented as of this encounter Visit Diagnoses Not on filedocumented in this encounter Care Teams Cloud Security Architect Relationship Specialty Start Date End Date Shade Leon [address] [place] [address] PCP - General 06/22/00 Damir Witt MD [address] [place] [address] Primary Staff Physician Cardiology 12/13/22 documented as of this encounter
--- OUTSIDE RECORDS SUMMARY | 2024-12-16 11:01 | XMS_ITS | Encounter Summary ---
Author Organization [facility] Address [address] [place] [address] Care Team Providers Care Printed Circuit Layout Taper Name Role Phone Edward Shade Lam Primary Care Provider [phone]- [phone] Damir Witt MD Unavailable [phone] Source Comments In the event this information is protected by the Federal Confidentiality of Alcohol and Drug AbusePatient Records regulations: The Federal rules restrict any use of the information to criminally investigate or prosecute any alcohol or drug abuse patient.[facility] Encounter Details Date Type Department Care Team (Late st Contact Info) Description 10/04/2024 Results Follow-Up Pulmonary Medicine [address] [place] [address] Moriah Lawrence, MANAGER CONTACT.STAPLE LASTER [address] [place] [address] Social History Tobacco Use Types Packs/Day Years [...] is lower risk 8 08/09/2022 Data from: https://www.neighborhoodatlas.medicine.[facility].edu/. Last address used for calculation [address] [...] Description 12/26/2024 4:30 PM EDT [facility] Gastroenterology [address] [address] Per Andres MD, PhD [address] [place], [place] [phone] Follow Up 12/30/2024 12:45 PM EDT Appointment Cardiology 9300 [place] [address] DEVICE CHECK FOR MRI CLEARENCE 12/30/2024 2:10 PM EDT Appointment MRI Q [address] [address] DUE TO PT IMPLANT- IF APPT NEEDS TO BE RESCHEDULED IT MUST BE SENT TO THE FOLLOWING STAFF MESSAGE ADDRESS: IMAGING IMPLANTS [[id number]] ICD approved to schedule by . 01/28/2025 11:00 AM EST Appointment [facility] [place] Scan [address] [place] [address] Crohn's disease with complication, unspecified gastrointestinal tract location (HCC) [K50.919] 01/28/2025 12:30 PM EST Appointment [facility] [place] Scan [address] [place] [address] Crohn's disease with complication, unspecified gastrointestinal tract location (HCC) [K50.919] 02/17/2025 1:30 PM EST Office Visit Vascular Medicine 9[address] [place] [address] Coronary artery calcification; Aortic root dilation 02/17/2025 2:45 PM EST Office Visit Preventive Cardiology 9300 [place] [address] Mary Fatima, MANAGER CONTACT.STAPLE LASTER [address] [place] [address] Coronary artery calcification; Aortic root dilation documented as of this encounter Goals Goal Patient Goal Type Associated Problems Recent Progress Patient-Stated? Author Blood Pressure < 130/80 Blood Pressure 126/70(2024 2:53 PM EDT) No Moriah Sullivan, [place] documented as of this encounter Visit Diagnoses Not on filedocumented in this encounter Care Teams Printed Circuit Layout Taper Relationship Specialty Start Date End Date Shade Leon [address] [place] [address] PCP - General 06/22/00 Damir Witt MD [address] [place] [phone] Primary Staff Physician Cardiology 12/13/22 documented as of this encounter
--- OUTSIDE RECORDS SUMMARY | 2024-12-16 11:01 | XMS_ITS | Encounter Summary ---
Author Organization [facility] Address [address] [place] [address] Care Team Providers Care Warehouse Logistics Manager Name Role Phone Edward Shadejodie Menjivarmond Primary Care Provider [phone] Damir Witt MD Unavailable [phone] Source Comments In the event this information is protected by the Federal Confidentiality of Alcohol and Drug AbusePatient Records regulations: The Federal rules restrict any use of the information to criminally investigate or prosecute any alcohol or drug abuse patient.[facility] Encounter Details Date Type Department Care Team (Late st Contact Info) Description 10/21/2024 Results Follow-Up Gastroenterology 2048 [place] [address] Per Andres MD, PhD [address] [place] [address] Social History Tobacco Use Types Packs/Day Years [...] place to sleep or slept in a skilled nursing (including now)? No 06/24/2022 Area Deprivation Index Answer Date Oscar rded National Score (1-100), lower number is lower ri sk 89 08/09/2022 State Score (1-10), lower number is lower risk 8 08/09/2022 Data from: https://www.neighborhoodatlas.medicine.[facility].edu/. Last address used for calculation [address] [...] [facility] Gastroenterology [address] [address] Per Andres MD, PhD [address] [place], [place] [address] Follow Up 12/30/2024 12:45 PM EDT Appointment Cardiology 9[address] [place] [address] DEVICE CHECK FOR MRI CLEARENCE 12/30/2024 2:10 PM EDT Appointment MRI Q [address] [address] DUE TO PT IMPLANT- IF APPT NEEDS TO BE RESCHEDULED IT MUST BE SENT TO THE FOLLOWING STAFF MESSAGE ADDRESS: IMAGING IMPLANTS [[id number]] ICD approved to schedule by . 01/28/2025 11:00 AM EST Appointment [facility] [place] Scan [address] [place] [address] Crohn's disease with complication, unspecified gastrointestinal tract location (HCC) [K50.919] 01/28/2025 12:30 PM EST Appointment [facility] [place] Scan [address] [place] [address] Crohn's disease with complication, unspecified gastrointestinal tract location (HCC) [K50.919] 02/17/2025 1:30 PM EST Office Visit Vascular Medicine 9[address] [place] [address] Coronary artery calcification; Aortic root dilation 02/17/2025 2:45 PM EST Office Visit Preventive Cardiology 9[address] [place] [address] Mary Faitma, CREDIT CLERK.HAIRSPRING TRUING INSPECTOR [address] [place] [address] Coronary artery calcification; Aortic root dilation documented as of this encounter Goals Goal Patient Goal Type Associated Problems Recent Progress Patient-Stated? Author Blood Pressure < 130/80 Blood Pressure 126/70(2024 2:53 PM EDT) No Moriah Sullivan, RN documented as of this encounter Visit Diagnoses Not on filedocumented in this encounter Care Teams Warehouse Logistics Manager Relationship Specialty Start Date End Date Shade Leon [address] [place] [address] PCP - General 06/22/00 Damir Witt MD [address] [place] [address] Primary Staff Physician Cardiology 12/13/22 documented as of this encounter
--- OUTSIDE RECORDS SUMMARY | 2024-12-16 11:01 | XMS_ITS | Encounter Summary ---
Author Organization [facility] Address [address] [place] [address] Care Team Providers Care Prime Broker Name Role Phone Shade Leon Primary Care Provider [phone]- [phone] Damir Witt MD Unavailable [phone] Source Comments In the event this information is protected by the Federal Confidentiality of Alcohol and Drug AbusePatient Records regulations: The Federal rules restrict any use of the information to criminally investigate or prosecute any alcohol or drug abuse patient.[facility] Encounter Details Date Type Department Care Team (Late st Contact Info) Description 09/09/2023 Get Medical Advice Cardiology [address] [place], [place] [phone] Provider, Ccf Transfer Social History Tobacco Use Types Packs/Day Years [...] is lower risk 8 08/09/2022 Data from: https://www.neighborhoodatlas.medicine.[facility].edu/. Last address used for calculation [...] EDT [facility] Gastroenterology [address] [place] [phone] Per Andres MD, PhD [address] [place], [place] [phone] Follow Up 12/30/2024 12:45 PM EDT Appointment Cardiology [address] [place] [id number] DEVICE CHECK FOR MRI CLEARENCE 12/30/2024 2:10 PM EDT Appointment MRI Q [address] [place] [address] DUE TO PT IMPLANT- IF APPT NEEDS TO BE RESCHEDULED IT MUST BE SENT TO THE FOLLOWING STAFF MESSAGE ADDRESS: IMAGING IMPLANTS [[id number]] ICD approved to schedule by . 01/28/2025 11:00 AM EST Appointment [facility] [place] Scan [address] [place] [address] Crohn's disease with complication, unspecified gastrointestinal tract location (HCC) [K50.919] 01/28/2025 12:30 PM EST Appointment [facility] [place] Scan [address] [place] [address] Crohn's disease with complication, unspecified gastrointestinal tract location (HCC) [K50.919] 02/17/2025 1:30 PM EST Office Visit Vascular Medicine 9[address] [place] [address] Coronary artery calcification; Aortic root dilation 02/17/2025 2:45 PM EST Office Visit Preventive Cardiology [address] [place] [address] Mary Fatima, CHECK PROCESSOR.DANCE TEACHER [address] [place] [address] Coronary artery calcification; Aortic root dilation documented as of this encounter Goals Goal Patient Goal Type Associated Problems Recent Progress Patient-Stated? Author Blood Pressure < 130/80 Blood Pressure 126/70(2024 2:53 PM EDT) No Moriah Sullivan, RN documented as of this encounter Visit Diagnoses Not on filedocumented in this encounter Care Teams Prime Broker Relationship Specialty Start Date End Date Shade Leon [address] [place] [address] PCP - General 06/22/00 Damir Witt MD [address] [place] [address] Primary Staff Physician Cardiology 12/13/22 documented as of this encounter
--- OUTSIDE RECORDS SUMMARY | 2024-12-16 11:01 | XMS_ITS | Encounter Summary ---
Author Organization [facility] Address [address] [place] [address] Care Team Providers Care Motion Picture Projectionist Apprentice Name Role Phone Cristina Leonodore Lam Primary Care Provider [phone]- [phone] Damir Witt MD Unavailable [phone] Source Comments In the event this information is protected by the Federal Confidentiality of Alcohol and Drug AbusePatient Records regulations: The Federal rules restrict any use of the information to criminally investigate or prosecute any alcohol or drug abuse patient.[facility] Encounter Details Date Type Department Care Team (Late st Contact Info) Description 07/02/2024 Patient Msg Pulmonary Medicine [address] [place] [id number] [address] Result Notification Social History Tobacco Use Types Packs/Day Years [...] place to sleep or slept in a mcc (including now)? No 06/24/2022 Area Deprivation Index Answer Date Oscar rded National Score (1-100), lower number is lower ri sk 89 08/09/2022 State Score (1-10), lower number is lower risk 8 08/09/2022 Data from: https://www.neighborhoodatlas.medicine.[facility].edu/. Last address used for calculation [...] Contact Info) Description 12/26/2024 4:30 PM EDT [facility] Gastroenterology [address] [address] Per Andres MD, PhD [address] [place] [address] Follow Up 12/30/2024 12:45 PM EDT Appointment Cardiology [address] [facility] [place] [address] DEVICE CHECK FOR MRI CLEARENCE 12/30/2024 2:10 PM EDT Appointment MRI Q [address] [place] [phone] DUE TO PT IMPLANT- IF APPT NEEDS TO BE RESCHEDULED IT MUST BE SENT TO THE FOLLOWING STAFF MESSAGE ADDRESS: IMAGING IMPLANTS [[id number]] ICD approved to schedule by . 01/28/2025 11:00 AM EST Appointment [facility] [place] Scan [address] [place] [address] Crohn's disease with complication, unspecified gastrointestinal tract location (HCC) [K50.919] 01/28/2025 12:30 PM EST Appointment [facility] [place] Scan [address] [place] [address] Crohn's disease with complication, unspecified gastrointestinal tract location (HCC) [K50.919] 02/17/2025 1:30 PM EST Office Visit Vascular Medicine [address] [place] [phone] Coronary artery calcification; Aortic root dilation 02/17/2025 2:45 PM EST Office Visit Preventive Cardiology [address] [place] [phone] Mary Fatima, HEAD IRRIGATOR.[place] HISTORY PROFESSOR [address] [place] [address] Coronary artery calcification; Aortic root dilation documented as of this encounter Goals Goal Patient Goal Type Associated Problems Recent Progress Patient-Stated? Author Blood Pressure < 130/80 Blood Pressure 126/70(2024 2:53 PM EDT) No Moriah Sullivan, RN documented as of this encounter Visit Diagnoses Not on filedocumented in this encounter Care Teams Motion Picture Projectionist Apprentice Relationship Specialty Start Date End Date Shade Leon [address] [place] [address] PCP - General 06/22/00 Damir Witt MD [address] [place] [address] Primary Staff Physician Cardiology 12/13/22 documented as of this encounter
--- OUTSIDE RECORDS SUMMARY | 2024-12-16 11:01 | XMS_ITS | Encounter Summary ---
Author Organization [facility] Address [address] [place] [address] Care Team Providers Care Plating Operator Name Role Phone Edward Shadejodie Menjivarmond Primary Care Provider [phone]- [phone] Damir Witt MD Unavailable [phone] Source Comments In the event this information is protected by the Federal Confidentiality of Alcohol and Drug AbusePatient Records regulations: The Federal rules restrict any use of the information to criminally investigate or prosecute any alcohol or drug abuse patient.[facility] Encounter Details Date Type Department Care Team (Late st Contact Info) Description 07/28/2024 Get Medical Advice Gastroenterology 2048 [place] [address] Per Andres MD, PhD [address] [place] [address] [place] Social History Tobacco Use Types Packs/Day Years [...] is lower risk 8 08/09/2022 Data from: https://www.neighborhoodatlas.medicine.[facility].edu/. Last address used for calculation [...] Contact Info) Description 12/26/2024 4:30 PM EDT [facility] Gastroenterology [address] [address] Per Andres MD, PhD 14[address] [place], [place] [phone] Follow Up 12/30/2024 12:45 PM EDT Appointment Cardiology 9[address] [place] [address] DEVICE CHECK FOR MRI CLEARENCE 12/30/2024 2:10 PM EDT Appointment MRI Q [address] [address] DUE TO PT IMPLANT- IF APPT NEEDS TO BE RESCHEDULED IT MUST BE SENT TO THE FOLLOWING STAFF MESSAGE ADDRESS: IMAGING IMPLANTS [[id number]] ICD approved to schedule by . 01/28/2025 11:00 AM EST Appointment [facility] [place] Scan [address] [place] [address] Crohn's disease with complication, unspecified gastrointestinal tract location (HCC) [K50.919] 01/28/2025 12:30 PM EST Appointment [facility] [place] Scan [address] [place] [address] Crohn's disease with complication, unspecified gastrointestinal tract location (HCC) [K50.919] 02/17/2025 1:30 PM EST Office Visit Vascular Medicine [address] [place] [address] Coronary artery calcification; Aortic root dilation 02/17/2025 2:45 PM EST Office Visit Preventive Cardiology [address] [place] [address] Mary Fatima, MARKETING SERVICES REP.LODGE OFFICER [address] [place] [address] Coronary artery calcification; Aortic root dilation documented as of this encounter Goals Goal Patient Goal Type Associated Problems Recent Progress Patient-Stated? Author Blood Pressure < 130/80 Blood Pressure 126/70(2024 2:53 PM EDT) No Moriah Sullivan, SYD[place] documented as of this encounter Visit Diagnoses Not on filedocumented in this encounter Care Teams Plating Operator Relationship Specialty Start Date End Date Edward Shade Fritz [address] [place] [address] PCP - General 4/12/01 Damir Witt MD [address] [place] [phone] Primary Staff Physician Cardiology 12/13/22 documented as of this encounter
--- OUTSIDE RECORDS SUMMARY | 2024-12-16 11:01 | XMS_ITS | Encounter Summary ---
Author Organization [facility] Address [address] [place] [address] Care Team Providers Care Explosive Operator Name Role Phone Edward Shadejodie Menjivarmond Primary Care Provider [phone] Damir Witt MD Unavailable [phone] Source Comments In the event this information is protected by the Federal Confidentiality of Alcohol and Drug AbusePatient Records regulations: The Federal rules restrict any use of the information to criminally investigate or prosecute any alcohol or drug abuse patient.[facility] Encounter Details Date Type Department Care Team (Late st Contact Info) Description 05/22/2024 Patient Update Gastroenterology 2048 [place] [address] Per Andres MD, PhD [address] [place] [address] Social History Tobacco Use Types [...] is lower risk 8 08/09/2022 Data from: https://www.neighborhoodatlas.medicine.[facility].edu/. Last address used for calculation 1030 [...] PM EDT [facility] Gastroenterology [address] [address] Per Andres MD, PhD [address] [place], [place] [phone] Follow Up 12/30/2024 12:45 PM EDT Appointment Cardiology 9[address] [place] [address] DEVICE CHECK FOR MRI CLEARENCE 12/30/2024 2:10 PM EDT Appointment MRI Q [address] [place] [address] DUE TO PT IMPLANT- IF APPT NEEDS TO BE RESCHEDULED IT MUST BE SENT TO THE FOLLOWING STAFF MESSAGE ADDRESS: IMAGING IMPLANTS [[id number]] ICD approved to schedule by . 01/28/2025 11:00 AM EST Appointment [facility] [place] Scan [address] [place] [address] Crohn's disease with complication, unspecified gastrointestinal tract location (HCC) [K50.919] 01/28/2025 12:30 PM EST Appointment [facility] [place] Scan [address] [place] [address] Crohn's disease with complication, unspecified gastrointestinal tract location (HCC) [K50.919] 02/17/2025 1:30 PM EST Office Visit Vascular Medicine 9[address] [place] [address] Coronary artery calcification; Aortic root dilation 02/17/2025 2:45 PM EST Office Visit Preventive Cardiology 9[address] [place] [address] Mary Fatima, DIRECTOR CHECK.MUSIC ORCHESTRATOR [address] [place] [address] Coronary artery calcification; Aortic root dilation documented as of this encounter Goals Goal Patient Goal Type Associated Problems Recent Progress Patient-Stated? Author Blood Pressure < 130/80 Blood Pressure 126/70(2024 2:53 PM EDT) No Moriah Sullivan RN documented as of this encounter Results * CREATININE BLD (06/27/2024 9:08 AM EDT) Creatinine 1.13 0.73 - 1.22 mg/dL 06/27/2024 9:[address] [facility] Estimated Glomerular Filtration Rate 73 >=60 mL/min/1.7 3m 06/27/2024 9:[address] [facility] Comment:Estimated Glomerular Filtration Rate (eGFR) is [...] BLOOD SPECIMEN / Unknown Venipuncture / Unknown 06/27/2024 9:08 AM EDT 06/27/2024 9:08 AM EDT us Per Munoz MD, PhD LABORATORY Final Result [facility] [address] [place] [address] documented in this encounter Visit Diagnoses Diagnosis Crohn's disease of small and large intestines with complication (HCC)- Primary Pacemaker reprogramming/check Fitting and adjustment of cardiac pacemaker documented in this encounter Care Teams Explosive Operator Relationship Specialty Start Date End Date Shade Leon [address] [place] [address] PCP - General 06/22/00 Damir Witt MD [address] [place] [address] Primary Staff Physician Cardiology 12/13/22 documented as of this encounter
--- OUTSIDE RECORDS SUMMARY | 2024-12-16 11:01 | XMS_ITS | Encounter Summary ---
Author Organization [facility] Address [address] [place] [address] Care Team Providers Care Voltage Inspector Name Role Phone Madi Leon Primary Care Provider [phone] Encounter Details Date Type Department Care Team (Late Contact Info) Description 10/25/2022 Abstract [facility] [address] [place] [address] Carrillo Sierra DPM [address] [place] [address] Social History Tobacco Use Types Packs/Day Years Used Date Smoking Tobacco: Never Sex and Gender Information Value Date Recorded Sex Assigned at Not on file Legal Sex Male 7:21 PM EDT Gender Identity Not on file Sexual Orientation Not on file COVID-19 Exposure Response Date Recorded In the last 10 days, have yo u been in contact with someone who was confirmed or suspected to have Coronavirus/COVID-19? No / Unsure 10/18/2022 12:45 PM EDT documented as of this encounter Plan of Treatment Upcoming Encounters Date Type Department Care Team (Late st Contact Info) Description 11/18/2025 8:40 AM EDT Office Visit [facility] [address] [place] [address] Skylar Jacob, RESEARCH EDITOR-RESEARCH AND DEVELOPMENT RESEARCHER [address] [place] [address] documented as of this encounter Visit Diagnoses Not on filedocumented in this encounter Care Teams Voltage Inspector Relationship Specialty Start Date End Date Madi Leon DO [address] [place] [phone] PCP - General Internal Medicine 09/19/22 documented as of this encounter
--- OUTSIDE RECORDS SUMMARY | 2024-12-16 11:01 | XMS_ITS | Encounter Summary ---
Author Organization [facility] Address [address] [place] [address] Care Team Providers Care Customer Records Division Supervisor Name Role Phone Edward Shadejodie Menjivarmond Primary Care Provider [phone] Damir Witt MD Unavailable Source Comments In the event this information is protected by the Federal Confidentiality of Alcohol and Drug AbusePatient Records regulations: The Federal rules restrict any use of the information to criminally investigate or prosecute any alcohol or drug abuse patient.[facility] Encounter Details Date Type Department Care Team (Late st Contact Info) Description 01/28/2023 Patient Msg Gastroenterology [address] [place] [phone] Per Andres MD, PhD [address] [place] [address] Test results Social History Tobacco [...] risk 8 08/09/2022 Data from: https://www.neighborhoodatlas.medicine.[facility].edu/. Last address used for calculation [address] [...] [facility] Gastroenterology [address] [address] Per Andres MD, PhD [address] [place] [address] Follow Up 12/30/2024 12:45 PM EDT Appointment Cardiology [address] [place] [address] DEVICE CHECK FOR MRI CLEARENCE 12/30/2024 2:10 PM EDT Appointment MRI Q [address] [place] [address] DUE TO PT IMPLANT- IF APPT NEEDS TO BE RESCHEDULED IT MUST BE SENT TO THE FOLLOWING STAFF MESSAGE ADDRESS: IMAGING IMPLANTS [[id number]] ICD approved to schedule by . 01/28/2025 11:00 AM EST Appointment [facility] [place] Scan [address] [place] [address] Crohn's disease with complication, unspecified gastrointestinal tract location (HCC) [K50.919] 01/28/2025 12:30 PM EST Appointment [facility] [place] Scan [address] [place] [address] Crohn's disease with complication, unspecified gastrointestinal tract location (HCC) [K50.919] 02/17/2025 1:30 PM EST Office Visit Vascular Medicine [address] [place] [address] Coronary artery calcification; Aortic root dilation 02/17/2025 2:45 PM EST Office Visit Preventive Cardiology [address] [place] [address] Mary Fatima, [place] FOUNDER & CEO.LOAF COUNTER [address] [place] [address] Coronary artery calcification; Aortic root dilation documented as of this encounter Visit Diagnoses Not on filedocumented in this encounter Care Teams Customer Records Division Supervisor Relationship Specialty Start Date End Date Shade Leon [address] [place] [address] PCP - General 06/22/00 Damir Witt MD [address] [place] [address] Primary Staff Physician Cardiology 12/13/22 documented as of this encounter
--- OUTSIDE RECORDS SUMMARY | 2024-12-16 11:01 | XMS_ITS | Encounter Summary ---
Author Organization [facility] Address [facility] [place] [address] Care Team Providers Care Crystal Flat Grinder Name Role Phone Edward Shadejodie Fritz Primary Care Provider [phone] Damir Witt MD Unavailable [phone] Source Comments In the event this information is protected by the Federal Confidentiality of Alcohol and Drug AbusePatient Records regulations: The Federal rules restrict any use of the information to criminally investigate or prosecute any alcohol or drug abuse patient.[facility] Reason for Visit * Reason Comments Refill Request Encounter Details Date Type Department Care Team (Late st Contact Info) Description 07/28/2024 Refill Gastroenterology [address] [id number] Per Andres MD, PhD [address] [place] [address] Refill Request Social History Tobacco Use Types Packs/Day Years [...] is lower risk 8 08/09/2022 Data from: https://www.neighborhoodatlas.[facility].edu/. Last address used for calculation [address] 08/09/2022 Sex and Gender Information Value Date Recorded Sex Assigned at Not on file Legal Sex Male 9:36 AM EST Gender Identity Not on file Sexual Orientation Not on file documented as of this encounter Miscellaneous Notes * Telephone Encounter - Brittny Callejas LPN - 07/31/2024 7:43 AM EDT Requested Prescriptions Pending Prescriptions Disp Refills predniSONE (DELTASONE) 1 mg tablet [Pharmacy Med Name: PREDNISONE 1MG TABS] 480 tablet 1 Sig: TAKE FOUR TABLETS BY MOUTH EVERY AFTERNOON Last visit: 07/25/24 PLAN - Start vedolizumab. Patient prefers SQ option. He is aware of IV induction doses first. - Follow up in 3 months. - Repeat CTE in 6 months. Next visit: not yet scheduled Last Labs: 06/19/24 Brittny Callejas LPN documented in this encounter Plan of Treatment Upcoming Encounters Date Type Department Care Team (Latest Contact Info) Description 12/26/2024 4:30 PM EDT [facility] Gastroenterology [address] [address] Per Andres MD, PhD [address] [place] [address] Follow Up 12/30/2024 12:45 PM EDT Appointment Cardiology [address] [place] [address] DEVICE CHECK FOR MRI CLEARENCE 12/30/2024 2:10 PM EDT Appointment MRI Q [address] [address] DUE TO PT IMPLANT- IF APPT NEEDS TO BE RESCHEDULED IT MUST BE SENT TO THE FOLLOWING STAFF MESSAGE ADDRESS: IMAGING IMPLANTS [[id number]] ICD approved to schedule by . 01/28/2025 11:00 AM EST Appointment [facility] [place] Scan [address] [place] [address] Crohn's disease with complication, unspecified gastrointestinal tract location (HCC) [K50.919] 01/28/2025 12:30 PM EST Appointment [facility] [place] Scan [address] [place] [address] Crohn's disease with complication, unspecified gastrointestinal tract location (HCC) [K50.919] 02/17/2025 1:30 PM EST Office Visit Vascular Medicine [address] [place] [address] Coronary artery calcification; Aortic root dilation 02/17/2025 2:45 PM EST Office Visit Preventive Cardiology [address] [place] [address] Mary Fatima, ENGINEERING MATHEMATICIAN.PHARMACY DELIVERY DRIVER [address] [place] [address] Coronary artery calcification; Aortic root dilation documented as of this encounter Goals Goal Patient Goal Type Associated Problems Recent Progress Patient-Stated? Author Blood Pressure < 130/80 Blood Pressure 126/70(2024 2:53 PM EDT) No Moriah Sullivan, RN documented as of this encounter Visit Diagnoses Not on filedocumented in this encounter Care Teams Crystal Flat Grinder Relationship Specialty Start Date End Date Shade Leon [address] [place] [address] PCP - General 06/22/00 Damir Witt MD [address] [place] [address] Primary Staff Physician Cardiology 12/13/22 documented as of this encounter
--- OUTSIDE RECORDS SUMMARY | 2024-12-16 11:01 | XMS_ITS | Encounter Summary ---
Author Organization [facility] Address [address] [place] [address] Care Team Providers Care Senior Clinical Data Analyst Name Role Phone Maynor Leonore Lam Primary Care Provider [phone] Damir Witt MD Unavailable [phone] Source Comments In the event this information is protected by the Federal Confidentiality of Alcohol and Drug AbusePatient Records regulations: The Federal rules restrict any use of the information to criminally investigate or prosecute any alcohol or drug abuse patient.[facility] Encounter Details Date Type Department Care Team (Late st Contact Info) Description 12/04/2024 Orders Only Pseudo CARD EPS MAIN Pseudo Department Only [facility] Dread Fay MD [address] [place] [address] Social History Tobacco Use Types [...] place to sleep or slept in a usp (including now)? No 06/24/2022 Area Deprivation Index Answer Date Oscar rded National Score (1-100), lower number is lower ri sk 89 08/09/2022 State Score (1-10), lower number is lower risk 8 08/09/2022 Data from: https://www.neighborhoodatlas.medicine.[facility].edu/. Last address used for calculation [...] Description 12/26/2024 4:30 PM EDT [facility] Gastroenterology [address] [address] Per Andres MD, PhD [address] [place] [address] Follow Up 12/30/2024 12:45 PM EDT Appointment Cardiology [address] [place] [address] DEVICE CHECK FOR MRI CLEARENCE 12/30/2024 2:10 PM EDT Appointment MRI Q [address] [place] [address] DUE TO PT IMPLANT- IF APPT NEEDS TO BE RESCHEDULED IT MUST BE SENT TO THE FOLLOWING STAFF MESSAGE ADDRESS: IMAGING IMPLANTS [[id number]] ICD approved to schedule by . 01/28/2025 11:00 AM EST Appointment [facility] [place] Scan [address] [place] [address] Crohn's disease with complication, unspecified gastrointestinal tract location (HCC) [K50.919] 01/28/2025 12:30 PM EST Appointment [facility] [place] Scan [address] [place] [address] Crohn's disease with complication, unspecified gastrointestinal tract location (HCC) [K50.919] 02/17/2025 1:30 PM EST Office Visit Vascular Medicine [address] [place] [address] Coronary artery calcification; Aortic root dilation 02/17/2025 2:45 PM EST Office Visit Preventive Cardiology [address] [place] [address] Mary Fatima, REVENUE COLLECTOR.SEISMOLOGY TECHNICAL OFFICER [address] [place] [address] Coronary artery calcification; Aortic root dilation documented as of this encounter Goals Goal Patient Goal Type Associated Problems Recent Progress Patient-Stated? Author Blood Pressure < 130/80 Blood Pressure 126/70(2024 2:53 PM EDT) No Moriah Sullivan RN documented as of this encounter Procedures Procedure Name Priority Date/Time Associated Diagnosis Comments CARDIAC IMPLANTABLE DEVICE CHECK REMOTE Routine 12/04/2024 12:54 AM EDT documented in this encounter Results * CARDIAC IMPLANTABLE DEVICE CHECK REMOTE (12/04/2024 12:54 AM EDT) Date Time Interrogation Session [id number] M[facility]J CARDIAC Type Interrogation Session Remote Scheduled [facility] CARDIAC Implantable Pulse Generator Drafting Detailer BidstalkroniMR Presta MURJ CARDIAC Implantable Pulse Generator Type Defibrillator [facility] CARDIAC Implantable Pulse Generator Model Acticor 7 VR-T DX [facility] CARDIAC Implantable Pulse Generator Serial Number [id number] [facility] CARDIAC Implantable Pulse Generator Implant Date [id number] M[facility] CARDIAC Battery Remaining Percentage 81.00 M[facility] CARDIAC Battery Voltage 3.110 M[facility]J CARDIAC Battery WATER SAFETY TEACHER Trigger 2.850 MURJ CARDIAC Battery Status MOS MURJ CARDIAC Capacitor Charge Time 9.300 MURJ CARDIAC Eduin Statistic RV Percent Paced 0.00 MURJ CARDIAC Atrial Tachy Statistic AT/AF [place] Percent 0.00 MURJ CARDIAC Lead Channel Sensing [...] 6 MURJ CARDIAC Zone Setting Status On MURJ CARDIAC Zone ID 8 MURJ CARDIAC Zone Setting Type Category VT MURJ CARDIAC Rate 1 171 MURJ CARDIAC Zone Setting Status Monitor MURJ CARDIAC Zone ID 9 MURJ CARDIAC Zone Setting Type Category VT MURJ CARDIAC Rate 1 182 MURJ CARDIAC Therapies 4 x Burst,4 x Burst,40.0J,40.0J, 40.0J x 6 M[facility]J CARDIAC Zone Setting Status On [facility] CARDIAC Zone ID 10 [facility] CARDIAC Implantable Lead Drafting Detailer BiotroniMR Presta MURJ CARDIAC Implantable Lead Model [id number] Plexa ProMRI S DX 65/15 M[facility]J CARDIAC Implantable Lead Location Right Ventricle MURJ CARDIAC Implantable Lead Connection Status Connected [facility] CARDIAC Implantable Lead Serial Number [id number] [facility] CARDIAC Implantable Lead Implant Date [id number] [facility] CARDIAC 12/04/2024 12:5 4 AM EDT Narrative DAV CARDIAC - 12/05/2024 1:43 PM EDT Non-sustained [...] Histograms reviewed * No significant changes noted DRAFTER TOOL DESIGN 0% NOTE TO PROVIDERS: Cardiac Implanted Devices Flowsheets contain detailed Programming and Evaluation data. Full Docket/PDF found below under Scanned Documents . Procedure Note Dread Fay MD - 12/05/2024 Non-sustained Ventricular Tachycardia [...] Histograms reviewed * No significant changes noted DRAFTER TOOL DESIGN 0% NOTE TO PROVIDERS: Cardiac Implanted Devices Flowsheets contain detailedProgramming and Evaluation data. Full Docket/PDF found below under Scanned Documents . Dread Fay MD CARDIOLOGY Final Result M[facility]J CARDIAC documented in this encounter Visit Diagnoses Not on filedocumented in this encounter Care Teams Senior Clinical Data Analyst Relationship Specialty Start Date End Date Shade Leon [address] [place] [address] PCP - General 06/22/00 Damir Witt MD [address] [place] [address] Primary Staff Physician Cardiology 12/13/22 documented as of this encounter
--- OUTSIDE RECORDS SUMMARY | 2024-12-16 11:01 | XMS_ITS | Encounter Summary ---
Author Organization [facility] Address [address] [place] [address] Phone Care Team Providers Care Steam Hoist Operator Name Role Phone Madi Leon DO Primary Care Provider [phone] Encounter Details Date Type Department Care Team (Late st Contact Info) Description 05/14/2021 Orders Only [facility] [address] [place] [address] Conversion, Onbase Social History Tobacco Use Types [...] r Schedule OUTSIDE LAB SCAN Lab Ordered: 05/14/2021 documented as of this encounter Visit Diagnoses Not on filedocumented in this encounter Care Teams Steam Hoist Operator Relationship Specialty Start Date End Date Madi Leon DO PCP - General 03/[birth year]/1979 documented as of this encounter
--- OUTSIDE RECORDS SUMMARY | 2024-12-16 11:01 | XMS_ITS | Encounter Summary ---
Author Organization [facility] Address [address] [place] [address] Care Team Providers Care Threshing Machine Operator Name Role Phone Shade Leon Primary Care Provider [phone] Damir Witt MD Unavailable [phone] Source Comments In the event this information is protected by the Federal Confidentiality of Alcohol and Drug AbusePatient Records regulations: The Federal rules restrict any use of the information to criminally investigate or prosecute any alcohol or drug abuse patient.[facility] Encounter Details Date Type Department Care Team (Late st Contact Info) Description 11/06/2024 Results Follow-Up Urology [address] [id number] Saige Lion APRN.BRUSH HOLDER INSPECTOR [address] [place] [address] [phone] Social History Tobacco Use Types Packs/Day Years [...] risk 8 08/09/2022 Data from: https://www.neighborhoodatlas.medicine.[facility].edu/. Last address used for calculation [...] PM EDT [facility] Gastroenterology [address] [address] Per Andres MD, PhD [address] [place], [place] [id number] Follow Up 12/30/2024 12:45 PM EDT Appointment Cardiology [address] [place] [address] DEVICE CHECK FOR MRI CLEARENCE 12/30/2024 2:10 PM EDT Appointment MRI Q [address] [place] [address] DUE TO PT IMPLANT- IF APPT NEEDS TO BE RESCHEDULED IT MUST BE SENT TO THE FOLLOWING STAFF MESSAGE ADDRESS: IMAGING IMPLANTS [[id number]] ICD approved to schedule by . 01/28/2025 11:00 AM EST Appointment [facility] [place] Scan [address] [place] [address] Crohn's disease with complication, unspecified gastrointestinal tract location (HCC) [K50.919] 01/28/2025 12:30 PM EST Appointment [facility] [place] Scan [address] [place] [address] Crohn's disease with complication, unspecified gastrointestinal tract location (HCC) [K50.919] 02/17/2025 1:30 PM EST Office Visit Vascular Medicine [address] [place] [address] Coronary artery calcification; Aortic root dilation 02/17/2025 2:45 PM EST Office Visit Preventive Cardiology [address] [place] [address] Mary Fatima, DIRECTOR OF SPECIAL EVENTS.BRUSH HOLDER INSPECTOR [address] [place] [address] Coronary artery calcification; Aortic root dilation documented as of this encounter Goals Goal Patient Goal Type Associated Problems Recent Progress Patient-Stated? Author Blood Pressure < 130/80 Blood Pressure 126/70(2024 2:53 PM EDT) No Moriah Sullivan, RN documented as of this encounter Visit Diagnoses Not on filedocumented in this encounter Care Teams Threshing Machine Operator Relationship Specialty Start Date End Date Shade Leon [address] [place] [address] PCP - General 06/22/00 Damir Witt MD [address] [place] [address] Primary Staff Physician Cardiology 12/13/22 documented as of this encounter
--- OUTSIDE RECORDS SUMMARY | 2024-12-16 11:01 | XMS_ITS | Encounter Summary ---
Author Organization [facility] Address [address] [place] [address] Care Team Providers Care Enamel Cracker Name Role Phone Maynor Leonore Lam Primary Care Provider [phone] Damir Witt MD Unavailable [phone] Source Comments In the event this information is protected by the Federal Confidentiality of Alcohol and Drug AbusePatient Records regulations: The Federal rules restrict any use of the information to criminally investigate or prosecute any alcohol or drug abuse patient.[facility] Encounter Details Date Type Department Care Team (Late st Contact Info) Description 07/02/2024 Patient Msg Gastroenterology [address] [phone] Provider, [facility] Please schedule CONSULT TO [facility] order Social History Tobacco Use Types Packs/Day Years [...] risk 8 08/09/2022 Data from: https://www.neighborhoodatlas.medicine.[facility].edu/. Last address used for calculation [address] 08/09/2022 Sex and Gender Information Value Date Recorded Sex Assigned at Not on file Legal Sex Male 9:36 AM EST Gender Identity Not on file Sexual Orientation Not on file documented as of this encounter Plan of Treatment Upcoming Encounters Date Type Department Care Team (Latest Contact Info) Description 12/26/2024 4:30 PM EDT [facility] Gastroenterology [address] [address] Per Andres MD, PhD [address] [place] [address] Follow Up 12/30/2024 12:45 PM EDT Appointment Cardiology [address] [place] [address] DEVICE CHECK FOR MRI CLEARENCE 12/30/2024 2:10 PM EDT Appointment MRI Q [address] [place] [address] DUE TO PT IMPLANT- IF APPT NEEDS TO BE RESCHEDULED IT MUST BE SENT TO THE FOLLOWING STAFF MESSAGE ADDRESS: IMAGING IMPLANTS [[id number]] ICD approved to schedule by . 01/28/2025 11:00 AM EST Appointment [facility] [place] Scan [address] [place] [address] Crohn's disease with complication, unspecified gastrointestinal tract location (HCC) [K50.919] 01/28/2025 12:30 PM EST Appointment [facility] [place] Scan [address] [place] [address] Crohn's disease with complication, unspecified gastrointestinal tract location (HCC) [K50.919] 02/17/2025 1:30 PM EST Office Visit Vascular Medicine [address] [place] [address] Coronary artery calcification; Aortic root dilation 02/17/2025 2:45 PM EST Office Visit Preventive Cardiology [address] [phone] Mary Fatima APRN.BOOKBINDER APPRENTICE [address] [place] [address] Coronary artery calcification; Aortic root dilation documented as of this encounter Goals Goal Patient Goal Type Associated Problems Recent Progress Patient-Stated? Author Blood Pressure < 130/80 Blood Pressure 126/70(2024 2:53 PM EDT) No Moriah Sullivan, RN documented as of this encounter Visit Diagnoses Not on filedocumented in this encounter Care Teams Enamel Cracker Relationship Specialty Start Date End Date Shade Leon [address] [place] [address] PCP - General 06/22/00 Damir iWtt MD [address] [place] [address] Primary Staff Physician Cardiology 12/13/22 documented as of this encounter
--- OUTSIDE RECORDS SUMMARY | 2024-12-16 11:02 | XMS_ITS | Encounter Summary ---
Author Organization [facility] Address [address] [place] [address] Care Team Providers Care Supervisor Area Name Role Phone Madi Leon DO Primary Care Provider [phone] Reason for Visit * Reason Comments Med Refill Encounter Details Date Type Department Care Team ([facility] Contact Info) Description 04/10/2023 Refill [facility] Podiatry [address] [facility] [address] [place] [address] Carrillo Sierra DPM [address] [facility] [address] [place] [address] Social History Tobacco Use Types Packs/Day Years [...] Upcoming Encounters Date Type Department Care Team ([facility] Contact Info) Description 11/18/2025 8:40 AM EDT Office Visit [facility] Dermatology [address] [facility] [address] [place] [address] Skylar Jacob APRN-SJ [address] [facility] [address] [place] [address] documented as of this encounter Visit Diagnoses Not on filedocumented in this encounter Care Teams Supervisor Area Relationship Specialty Start Date End Date Madi Leon DO [address] [place] [id number] PCP - General Internal Medicine 09/19/22 documented as of this encounter
--- OUTSIDE RECORDS SUMMARY | 2024-12-16 11:02 | XMS_ITS | Encounter Summary ---
Author Organization [facility] Address [address] [place] [address] Care Team Providers Care Chief Lifestyle Officer Name Role Phone Edward Shadejodie Menjivarmond Primary Care Provider [phone] Damir Witt MD Unavailable [phone] Source Comments In the event this information is protected by the Federal Confidentiality of Alcohol and Drug AbusePatient Records regulations: The Federal rules restrict any use of the information to criminally investigate or prosecute any alcohol or drug abuse patient.[facility] Encounter Details Date Type Department Care Team (Late st Contact Info) Description 2023 Patient Msg Gastroenterology [address] [phone] Per Andres MD, PhD [address] [place] [address] Test results Social History Tobacco [...] is lower risk 8 08/09/2022 Data from: https://www.neighborhoodatlas.medicine.[facility].edu/. Last address used for calculation [address] 08/09/2022 Sex and Gender Information Value Date Recorded Sex Assigned at Not on file Legal Sex Male 9:36 AM EST Gender Identity Not on file Sexual Orientation Not on file documented as of this encounter Miscellaneous Notes * Telephone Encounter - Brittny Callejas LPN - 06/14/2023 9:48 AM EDT From: Per Andres MD, PhD Sent: 2023 7:56 AM EDT To: Brittny Callejas LPN Subject: CT abdomen Hi Brittny, Can you reach out to the patient and try to help with coordinating a date (and place) that works for him to get a CT abdomen in about 2 weeks? I believe he had a trip planned. If he can't come to main campus to get the CT abdomen done and decides to have it done elsewhere, we will need to get images sent here for review. I messaged him today about possibly needing this CT abdomen to be done (pending discussing the [place] with our [facility] IBD radiologist that is out of town about results of most recent CTE showing possible evolving abscess). Brodie Ayala 8:05 am Called spoke with patient offered advised of message from Dr Moss for CT within 2 weeks patient declined and stated he will be traveling through the beginning of July and stated he will complete upon his arrival home. Patient offered assistance with scheduling for July patient declined this nurse blind scheduling him and requested the number for him to call. Brittny Callejas LPN documented in this encounter Plan of Treatment Upcoming Encounters Date Type Department Care Team (Latest Contact Info) Description 12/26/2024 4:30 PM EDT [facility] Gastroenterology [address] [address] Per Andres MD, PhD [address] [place] [address] Follow Up 12/30/2024 12:45 PM EDT Appointment Cardiology [address] [place] [address] DEVICE CHECK FOR MRI CLEARENCE 12/30/2024 2:10 PM EDT Appointment MRI Q [address] [address] DUE TO PT IMPLANT- IF APPT NEEDS TO BE RESCHEDULED IT MUST BE SENT TO THE FOLLOWING STAFF MESSAGE ADDRESS: IMAGING IMPLANTS [[id number]] ICD approved to schedule by . 01/28/2025 11:00 AM EST Appointment [facility] [place] Scan [address] [place], [place] [address] Crohn's disease with complication, unspecified gastrointestinal tract location (HCC) [K50.919] 01/28/2025 12:30 PM EST Appointment [facility] [place] [address] [place] [address] Crohn's disease with complication, unspecified gastrointestinal tract location (HCC) [K50.919] 02/17/2025 1:30 PM EST Office Visit Vascular Medicine [address] [place] [address] Coronary artery calcification; Aortic root dilation 02/17/2025 2:45 PM EST Office Visit Preventive Cardiology [address] [place] [address] Mary Fatima, SUPERVISOR LAST MODEL DEPARTMENT.FURNACE HELPER [address] [place] [address] Coronary artery calcification; Aortic root dilation documented as of this encounter Visit Diagnoses Not on filedocumented in this encounter Care Teams Chief Lifestyle Officer Relationship Specialty Start Date End Date Shade Leon [address] [place] [address] PCP - General 06/22/00 Damir Witt MD [address] [place] [address] Primary Staff Physician Cardiology 12/13/22 documented as of this encounter
--- OUTSIDE RECORDS SUMMARY | 2024-12-16 11:02 | XMS_ITS | Encounter Summary ---
Author Organization [facility] Address [address] [place] [address] Care Team Providers Care Boat Cleaning Supervisor Name Role Phone Edward Shadejodie Menjivarmond Primary Care Provider [phone] Damir Witt MD Unavailable [phone] Source Comments In the event this information is protected by the Federal Confidentiality of Alcohol and Drug AbusePatient Records regulations: The Federal rules restrict any use of the information to criminally investigate or prosecute any alcohol or drug abuse patient.[facility] Encounter Details Date Type Department Care Team (Late st Contact Info) Description 03/30/2023 Get Medical Advice Gastroenterology 2048 [place] [address] Per Andres MD, PhD [address] [place] [address] Current conditions Social History Tobacco Use Types Packs/Day Years [...] is lower risk 8 08/09/2022 Data from: https://www.neighborhoodatlas.medicine.[facility].edu/. Last address used for calculation [...] Contact Info) Description 12/26/2024 4:30 PM EDT [facility] Gastroenterology [address] [address] Per Andres MD, PhD [address] [place] [address] Follow Up 12/30/2024 12:45 PM EDT Appointment Cardiology 9[address] [place] [address] DEVICE CHECK FOR MRI CLEARENCE 12/30/2024 2:10 PM EDT Appointment MRI Q [address] [place] [address] DUE TO PT IMPLANT- IF APPT NEEDS TO BE RESCHEDULED IT MUST BE SENT TO THE FOLLOWING STAFF MESSAGE ADDRESS: IMAGING IMPLANTS [[id number]] ICD approved to schedule by . 01/28/2025 11:00 AM EST Appointment [facility] [place] Scan [address] [place] [address] Crohn's disease with complication, unspecified gastrointestinal tract location (HCC) [K50.919] 01/28/2025 12:30 PM EST Appointment [facility] [place] Scan [address] [place] [address] Crohn's disease with complication, unspecified gastrointestinal tract location (HCC) [K50.919] 02/17/2025 1:30 PM EST Office Visit Vascular Medicine 9[address] [place] [address] Coronary artery calcification; Aortic root dilation 02/17/2025 2:45 PM EST Office Visit Preventive Cardiology 9300 [place] [address] Mary Fatima, PAPERHANGER ASSISTANT.HAND PASTER [address] [place] [address] Coronary artery calcification; Aortic root dilation documented as of this encounter Visit Diagnoses Not on filedocumented in this encounter Care Teams Boat Cleaning Supervisor Relationship Specialty Start Date End Date Shade Leon [address] [place] [address] PCP - General 06/22/00 Damir Witt MD [address] [place] [address] Primary Staff Physician Cardiology 12/13/22 documented as of this encounter
--- OUTSIDE RECORDS SUMMARY | 2024-12-16 11:02 | XMS_ITS | Clinical Summary ---
Author Organization [facility] Address [address] [place] [phone] Phone Care Team Providers Care Racebook Writer Name Role Phone Madi Leon Primary Care Provider [phone] Social History Tobacco Use Types Packs/Day Years Used Date Smoking Tobacco: Never Assessed Sex and Gender Information Value Date Recorded Sex Assigned at Not on file Legal Sex Male 5:08 PM EST Gender Identity Not on file Sexual Orientation Not on file Last Filed Vital Signs Vital Sign Reading Time Taken Comments Blood Pressure 110/74 02/08/2022 10:39 AM EST Pulse 96 02/08/2022 10:39 AM EST Temperature - - Respiratory Rate - - Oxygen Saturation - - Inhaled Oxygen Concentration - - Weight 96.6 kg (213 lb) 02/08/2022 10:39 AM EST Height 193 cm (6' 4 ) 02/08/2022 10:39 AM EST Body Mass Index 25.93 02/08/2022 10:39 AM EST Plan of Treatment Health Maintenance Due Date Last Done Comments CT Colonography 1962 Colonoscopy 1962 Colorectal Cancer Screening 1962 FIT-DNA (Cologuard) 1962 FIT 1962 HIV Screening 1962 Lipid Panel 1962 Sigmoidoscopy 1962 Yearly Adult Physical 1962 MMR Vaccines (1 of 1 - Stand shyam series) 06/14/1963 Diabetes Screening 1980 Hepatitis C Screening 1980 DTaP/Tdap/Td Vaccines (1 - Tdap) 1984 PSA Prostate Cancer Screening 2012 Zoster Vaccines (1 of 2) 2012 Pneumococcal Vaccine (2 of 2 - PCV) 04/09/2018 04/09/2017 COVID-19 Vaccine (1 - 2023-2 5 season) 2024 Influenza Vaccine (#1) 2024 12/12/2019 RSV High Risk: (Elderly (60+ ) or Population) (1 - 1-dose 75+ series) 2037 HIB Vaccines Aged Out No longer eligi ble based on patient's age to complete this topic HPV Vaccines Aged Out No longer eligi ble based on patient's age to complete this topic Hepatitis A Vaccines Aged Out No long er eligible based on patient's age to complete this topic Hepatitis B Vaccines Aged Out No long er eligible based on patient's age to complete this topic IPV Vaccines Aged Out No longer eligi ble based on patient's age to complete this topic Meningococcal Vaccine Aged Out No melva shasha eligible based on patient's age to complete this topic Rotavirus Vaccines Aged Out No longer eligible based on patient's age to complete this topic Care Teams Racebook Writer Relationship Specialty Start Date End Date Madi Leon DO PCP - General 03/13/1979
--- OUTSIDE RECORDS SUMMARY | 2024-12-16 11:02 | XMS_ITS | Encounter Summary ---
Author Organization [facility] Address [address] [place] [address] Phone Care Team Providers Care Principal Systems Architect Name Role Phone Madi Leon DO Primary Care Provider [phone] Encounter Details Date Type Department Care Team (Late st Contact Info) Description 12/06/2021 Orders Only [facility] LE[facility] [address] [place] [address] Conversion, Onbase Social History Tobacco Use Types [...] r Schedule OUTSIDE LAB SCAN Lab Ordered: 12/06/2021 documented as of this encounter Visit Diagnoses Not on filedocumented in this encounter Care Teams Principal Systems Architect Relationship Specialty Start Date End Date Madi Leon DO PCP - General 03/13/1979 documented as of this encounter
--- OUTSIDE RECORDS SUMMARY | 2024-12-16 11:02 | XMS_ITS | Encounter Summary ---
Author Organization [facility] Address [address] [place] [address] Care Team Providers Care Particleboard Factory Worker Name Role Phone Shade Leon Primary Care Provider [phone] Damir Witt MD Unavailable [phone] Source Comments In the event this information is protected by the Federal Confidentiality of Alcohol and Drug AbusePatient Records regulations: The Federal rules restrict any use of the information to criminally investigate or prosecute any alcohol or drug abuse patient.[facility] Encounter Details Date Type Department Care Team (Late st Contact Info) Description 01/08/2024 Patient Msg Gastroenterology [address] [place] [id number] Provider, [facility] Standing GI lab orders Social History Tobacco Use Types Packs/Day Years [...] is lower risk 8 08/09/2022 Data from: https://www.neighborhoodatlas.medicine.[facility].edu/. Last address used for calculation 1030 [...] PM EDT [facility] Gastroenterology [address] [place] [address] Per Andres MD, PhD [address] [place] [address] Follow Up 12/30/2024 12:45 PM EDT Appointment Cardiology 9300 [place] [address] DEVICE CHECK FOR MRI CLEARENCE 12/30/2024 2:10 PM EDT Appointment MRI Q [address] [place] [phone] DUE TO PT IMPLANT- IF APPT NEEDS TO BE RESCHEDULED IT MUST BE SENT TO THE FOLLOWING STAFF MESSAGE ADDRESS: IMAGING IMPLANTS [[id number]] ICD approved to schedule by . 01/28/2025 11:00 AM EST Appointment [facility] [place] Scan [address] [place] [address] Crohn's disease with complication, unspecified gastrointestinal tract location (HCC) [K50.919] 01/28/2025 12:30 PM EST Appointment [facility] [place] Scan [address] [place] [address] Crohn's disease with complication, unspecified gastrointestinal tract location (HCC) [K50.919] 02/17/2025 1:30 PM EST Office Visit Vascular Medicine [address] [place] [phone] Coronary artery calcification; Aortic root dilation 02/17/2025 2:45 PM EST Office Visit Preventive Cardiology [address] [place] [phone] Mary Fatima, I&C TECH.RN ANGIOGRAPHY [address] [place] [address] Coronary artery calcification; Aortic root dilation documented as of this encounter Goals Goal Patient Goal Type Associated Problems Recent Progress Patient-Stated? Author Blood Pressure < 130/80 Blood Pressure 126/70(2024 2:53 PM EDT) No Moriah Sullivan, RN documented as of this encounter Visit Diagnoses Not on filedocumented in this encounter Care Teams Particleboard Factory Worker Relationship Specialty Start Date End Date Shade Leon [address] [place] [address] PCP - General 06/22/00 Damir Witt MD [address] [place] [address] Primary Staff Physician Cardiology 12/13/22 documented as of this encounter
--- OUTSIDE RECORDS SUMMARY | 2024-12-16 11:02 | XMS_ITS | Encounter Summary ---
Author Organization [facility] Address [address] [place] [address] Care Team Providers Care Bowling Ball Marker Name Role Phone Edward Shadejodie Fritz Primary Care Provider [phone] Damir Witt MD Unavailable [phone] Source Comments In the event this information is protected by the Federal Confidentiality of Alcohol and Drug AbusePatient Records regulations: The Federal rules restrict any use of the information to criminally investigate or prosecute any alcohol or drug abuse patient.[facility] Encounter Details Date Type Department Care Team (Late st Contact Info) Description 01/24/2024 Get Medical Advice Cardiology [address] [place] [address] Damir Witt MD [address] [place] [address] CT scan Social History Tobacco Use Types [...] is lower risk 8 08/09/2022 Data from: https://www.neighborhoodatlas.medicine.[facility].edu/. Last address used for calculation [address] 08/09/2022 Sex and Gender Information Value Date Recorded Sex Assigned at Not on file Legal Sex Male 9:36 AM EST Gender Identity Not on file Sexual Orientation Not on file documented as of this encounter Plan of Treatment Upcoming Encounters Date Type Department Care Team (Latest Contact Info) Description 12/26/2024 4:30 PM EDT [facility] Gastroenterology [address] [address] Per Andres MD, PhD [address] [place], [place] [phone] Follow Up 12/30/2024 12:45 PM EDT Appointment Cardiology 9[address] [place] [address] DEVICE CHECK FOR MRI CLEARENCE 12/30/2024 2:10 PM EDT Appointment MRI Q [address] [place] [address] DUE TO PT IMPLANT- IF APPT NEEDS TO BE RESCHEDULED IT MUST BE SENT TO THE FOLLOWING STAFF MESSAGE ADDRESS: IMAGING IMPLANTS [[id number]] ICD approved to schedule by . 01/28/2025 11:00 AM EST Appointment [facility] [place] Scan [address] [place] [address] Crohn's disease with complication, unspecified gastrointestinal tract location (HCC) [K50.919] 01/28/2025 12:30 PM EST Appointment [facility] [place] Scan [address] [place] [address] Crohn's disease with complication, unspecified gastrointestinal tract location (HCC) [K50.919] 02/17/2025 1:30 PM EST Office Visit Vascular Medicine 9[address] [place] [address] Coronary artery calcification; Aortic root dilation 02/17/2025 2:45 PM EST Office Visit Preventive Cardiology [address] [place] [address] Mary Fatima, RAILROAD OPERATOR.OCCUPATIONAL MEDICINE PHYSICIAN [address] [place] [address] Coronary artery calcification; Aortic root dilation documented as of this encounter Goals Goal Patient Goal Type Associated Problems Recent Progress Patient-Stated? Author Blood Pressure < 130/80 Blood Pressure 126/70(2024 2:53 PM EDT) No Moriah Sullivan, RN documented as of this encounter Visit Diagnoses Not on filedocumented in this encounter Care Teams Bowling Ball Marker Relationship Specialty Start Date End Date Shade Leon [address] [place] [address] PCP - General 06/22/00 Damir Witt MD [address] [place] [address] Primary Staff Physician Cardiology 12/13/22 documented as of this encounter
--- OUTSIDE RECORDS SUMMARY | 2024-12-16 11:02 | XMS_ITS | Encounter Summary ---
Author Organization [facility] Address [facility] [place] [address] Care Team Providers Care Switch Technician Name Role Phone Edward Shadejodie Fritz Primary Care Provider [phone] Damir Witt MD Unavailable [phone] Source Comments In the event this information is protected by the Federal Confidentiality of Alcohol and Drug AbusePatient Records regulations: The Federal rules restrict any use of the information to criminally investigate or prosecute any alcohol or drug abuse patient.[facility] Encounter Details Date Type Department Care Team (Latest Contact Info) Description 02/21/2024 Get Medical Advice Gastroenterology 20[address] [place] [address] Per Andres MD, PhD [address] [place] [address] General Practitioner Social History Tobacco Use Types Packs/Day Years [...] risk 8 08/09/2022 Data from: https://www.neighborhoodatlas.medicine.[facility].edu/. Last address used for calculation [address] 08/09/2022 Sex and Gender Information Value Date Recorded Sex Assigned at Not on file Legal Sex Male 9:36 AM EST Gender Identity Not on file Sexual Orientation Not on file documented as of this encounter Plan of Treatment Upcoming Encounters Date Type Department Care Team (Latest Contact Info) Description 12/26/2024 4:30 PM EDT [facility] Gastroenterology [address] [address] Per Andres MD, PhD [address] [place] [address] Follow Up 12/30/2024 12:45 PM EDT Appointment Cardiology [address] [place] [address] DEVICE CHECK FOR MRI CLEARENCE 12/30/2024 2:10 PM EDT Appointment MRI Q [address] [address] DUE TO PT IMPLANT- IF APPT NEEDS TO BE RESCHEDULED IT MUST BE SENT TO THE FOLLOWING STAFF MESSAGE ADDRESS: IMAGING IMPLANTS [[id number]] ICD approved to schedule by . 01/28/2025 11:00 AM EST Appointment [facility] [place] Scan [address] [place] [address] Crohn's disease with complication, unspecified gastrointestinal tract location (HCC) [K50.919] 01/28/2025 12:30 PM EST Appointment [facility] [place] Scan [address] [place] [address] Crohn's disease with complication, unspecified gastrointestinal tract location (HCC) [K50.919] 02/17/2025 1:30 PM EST Office Visit Vascular Medicine [address] [place] [address] Coronary artery calcification; Aortic root dilation 02/17/2025 2:45 PM EST Office Visit Preventive Cardiology [address] [place] [address] Mary Fatima, AP OPERATOR.DRY STARCH SUPERVISOR [address] [place] [address] Coronary artery calcification; Aortic root dilation documented as of this encounter Goals Goal Patient Goal Type Associated Problems Recent Progress Patient-Stated? Author Blood Pressure < 130/80 Blood Pressure 126/70(2024 2:53 PM EDT) No Moriah Sullivan, RN documented as of this encounter Visit Diagnoses Not on filedocumented in this encounter Care Teams Switch Technician Relationship Specialty Start Date End Date Shade Leon [address] [place] [address] PCP - General 06/22/00 Damir Witt MD [address] [place] [phone] Primary Staff Physician Cardiology 12/13/22 documented as of this encounter
--- OUTSIDE RECORDS SUMMARY | 2024-12-16 11:02 | XMS_ITS | Encounter Summary ---
Author Organization [facility] Address [address] [place] [address] Care Team Providers Care Home Office Claim Specialist Name Role Phone Edward Shade Lam Primary Care Provider [phone] Damir Witt MD Unavailable [phone] Source Comments In the event this information is protected by the Federal Confidentiality of Alcohol and Drug AbusePatient Records regulations: The Federal rules restrict any use of the information to criminally investigate or prosecute any alcohol or drug abuse patient.[facility] Encounter Details Date Type Department Care Team (Late st Contact Info) Description 09/18/2024 Patient Msg Gastroenterology [address] [place] [phone] Per Andres MD, PhD [address] [place] [address] Appointment Request Social History Tobacco Use Types Packs/Day [...] is lower risk 8 08/09/2022 Data from: https://www.neighborhoodatlas.medicine.[facility].edu/. Last address used for calculation [address] [...] Description 12/26/2024 4:30 PM EDT [facility] Gastroenterology [address] [address] Per Andres MD, PhD [address] [place], [place] [phone] Follow Up 12/30/2024 12:45 PM EDT Appointment Cardiology 9[address] [place] [address] DEVICE CHECK FOR MRI CLEARENCE 12/30/2024 2:10 PM EDT Appointment MRI Q [address] [address] DUE TO PT IMPLANT- IF APPT NEEDS TO BE RESCHEDULED IT MUST BE SENT TO THE FOLLOWING STAFF MESSAGE ADDRESS: IMAGING IMPLANTS [[id number]] ICD approved to schedule by . 01/28/2025 11:00 AM EST Appointment [facility] [place] Scan [address] [place] [address] Crohn's disease with complication, unspecified gastrointestinal tract location (HCC) [K50.919] 01/28/2025 12:30 PM EST Appointment [facility] [place] Scan [address] [place] [address] Crohn's disease with complication, unspecified gastrointestinal tract location (HCC) [K50.919] 02/17/2025 1:30 PM EST Office Visit Vascular Medicine 9[address] [place] [address] Coronary artery calcification; Aortic root dilation 02/17/2025 2:45 PM EST Office Visit Preventive Cardiology [address] [place] [address] Mary Fatima, GLASS WORKER.SURGICAL ASSISTANT CERTIFIED [address] [place] [address] Coronary artery calcification; Aortic root dilation documented as of this encounter Goals Goal Patient Goal Type Associated Problems Recent Progress Patient-Stated? Author Blood Pressure < 130/80 Blood Pressure 126/70(2024 2:53 PM EDT) No Moriah Sullivan, [place] documented as of this encounter Visit Diagnoses Not on filedocumented in this encounter Care Teams Home Office Claim Specialist Relationship Specialty Start Date End Date Shade Leon [address] [place] [address] PCP - General 06/22/00 Damir Witt MD [address] [place] [phone] Primary Staff Physician Cardiology 12/13/22 documented as of this encounter
--- OUTSIDE RECORDS SUMMARY | 2024-12-16 11:02 | XMS_ITS | Encounter Summary ---
Author Organization [facility] Address [address] [place] [address] Care Team Providers Care Animation Director Name Role Phone Edward Shadejodie Fritz Primary Care Provider [phone] Damir Witt MD Unavailable [phone] Source Comments In the event this information is protected by the Federal Confidentiality of Alcohol and Drug AbusePatient Records regulations: The Federal rules restrict any use of the information to criminally investigate or prosecute any alcohol or drug abuse patient.[facility] Encounter Details Date Type Department Care Team (Late st Contact Info) Description 05/03/2023 Get Medical Advice Gastroenterology [address] [place] [address] Per Andres MD, PhD [address] [place] [address] Potassium Social History Tobacco Use [...] risk 8 08/09/2022 Data from: https://www.neighborhoodatlas.medicine.[facility].edu/. Last address used for calculation [address] [...] EDT [facility] Gastroenterology [address] [address] Per Andres MD, PhD [address] [place] [address] Follow Up 12/30/2024 12:45 PM EDT Appointment Cardiology [address] [place] [address] DEVICE CHECK FOR MRI CLEARENCE 12/30/2024 2:10 PM EDT Appointment MRI Q [address] [place] [address] DUE TO PT IMPLANT- IF APPT NEEDS TO BE RESCHEDULED IT MUST BE SENT TO THE FOLLOWING STAFF MESSAGE ADDRESS: IMAGING IMPLANTS [[id number]] ICD approved to schedule by . 01/28/2025 11:00 AM EST Appointment [facility] [place] Scan [address] [place] [address] Crohn's disease with complication, unspecified gastrointestinal tract location (HCC) [K50.919] 01/28/2025 12:30 PM EST Appointment [facility] [place] Scan [address] [place] [address] Crohn's disease with complication, unspecified gastrointestinal tract location (HCC) [K50.919] 02/17/2025 1:30 PM EST Office Visit Vascular Medicine [address] [place] [address] Coronary artery calcification; Aortic root dilation 02/17/2025 2:45 PM EST Office Visit Preventive Cardiology 9[address] [place] [address] Mary Fatima, MARKETING FINANCE SPECIALIST.HYDRANT SETTER [address] [place] [address] Coronary artery calcification; Aortic root dilation documented as of this encounter Visit Diagnoses Not on filedocumented in this encounter Care Teams Animation Director Relationship Specialty Start Date End Date Shade Leon [address] [place] [address] PCP - General 06/22/00 Damir Witt MD [address] [place] [address] Primary Staff Physician Cardiology 12/13/22 documented as of this encounter
--- OUTSIDE RECORDS SUMMARY | 2024-12-16 11:02 | XMS_ITS | Encounter Summary ---
Author Organization [facility] Address [address] [place] [address] Phone Care Team Providers Care Slurry Control Operator Helper Name Role Phone Madi Leon DO Primary Care Provider [phone] Encounter Details Date Type Department Care Team (Late st Contact Info) Description 12/27/2021 Orders Only [facility] [address] [place] [address] Conversion, Onbase Social History Tobacco Use Types [...] r Schedule OUTSIDE LAB SCAN Lab Ordered: 12/27/2021 documented as of this encounter Visit Diagnoses Not on filedocumented in this encounter Care Teams Slurry Control Operator Helper Relationship Specialty Start Date End Date Madi Leon DO PCP - General 03/13/1979 documented as of this encounter
--- OUTSIDE RECORDS SUMMARY | 2024-12-16 11:02 | XMS_ITS | Encounter Summary ---
Author Organization [facility] Address [address] [place] [address] Phone Care Team Providers Care Eyelet Machine Operator Name Role Phone Madi Leon DO Primary Care Provider Encounter Details Date Type Department Care Team (Late st Contact Info) Description 11/27/2021 Orders Only [facility]Y [address] [place] [address] Conversion, Onbase Social History Tobacco Use Types [...] r Schedule OUTSIDE LAB SCAN Lab Ordered: 11/27/2021 OUTSIDE LAB SCAN Lab Ordered: 11/27/2021 documented as of this encounter Visit Diagnoses Not on filedocumented in this encounter Care Teams Eyelet Machine Operator Relationship Specialty Start Date End Date Madi Leon DO PCP - General 03/13/1979 documented as of this encounter
--- OUTSIDE RECORDS SUMMARY | 2024-12-16 11:02 | XMS_ITS | Encounter Summary ---
Author Organization [facility] Address [address] [place] [address] Care Team Providers Care Burrer Machine Name Role Phone Madi Leon DO Primary Care Provider [phone] Encounter Details Date Type Department Care Team (Late Contact Info) Description 09/20/2022 Abstract [facility] [address] [place] [address] Carrillo Sierra DPM [address] [place] [address] Social History Tobacco Use Types Packs/Day Years Used Date Smoking Tobacco: Never Tobacco Cessation:Counseling Given: Not Answered Sex and Gender Information Value Date Recorded Sex Assigned at Not on file Legal Sex Male 7:21 PM EDT Gender Identity Not on file Sexual Orientation Not on file documented as of this encounter Plan of Treatment Upcoming Encounters Date Type Department Care Team (Late st Contact Info) Description 11/18/2025 8:40 AM EDT Office Visit [facility] Dermatology [address] [place] [address] Skylar Jacob, STUDENT ADMISSIONS CLERK-CANDY CUTTER MACHINE [address] [place] [address] documented as of this encounter Visit Diagnoses Not on filedocumented in this encounter Care Teams Burrer Machine Relationship Specialty Start Date End Date Madi Leon DO [address] [facility] [place] [address] PCP - General Internal Medicine 09/19/22 documented as of this encounter
--- OUTSIDE RECORDS SUMMARY | 2024-12-16 11:02 | XMS_ITS | Encounter Summary ---
Author Organization [facility] Address [address] [place] [address] Care Team Providers Care Chair Car Attendant Name Role Phone Shade Leon Primary Care Provider [phone] Damir Witt MD Unavailable [phone] Source Comments In the event this information is protected by the Federal Confidentiality of Alcohol and Drug AbusePatient Records regulations: The Federal rules restrict any use of the information to criminally investigate or prosecute any alcohol or drug abuse patient.[facility] Encounter Details Date Type Department Care Team (Late st Contact Info) Description 09/24/2024 Patient Msg HOSP MAIN H060 [address] [place] [address] Provider, Ccf Sign up to manage your digestive symptoms in between visits, covered by insurance Social History Tobacco Use Types Packs/Day Years [...] is lower risk 8 08/09/2022 Data from: https://www.neighborhoodatlas.medicine.[facility].edu/. Last address used for calculation [...] Description 12/26/2024 4:30 PM EDT [facility] Gastroenterology [address] [address] Per Andres MD, PhD [address] [place] [address] Follow Up 12/30/2024 12:45 PM EDT Appointment Cardiology [address] [place] [address] DEVICE CHECK FOR MRI CLEARENCE 12/30/2024 2:10 PM EDT Appointment MRI Q [address] [address] DUE TO PT IMPLANT- IF APPT NEEDS TO BE RESCHEDULED IT MUST BE SENT TO THE FOLLOWING STAFF MESSAGE ADDRESS: IMAGING IMPLANTS [[id number]] ICD approved to schedule by . 01/28/2025 11:[address] [facility] [place] Scan [address] [place] [address] Crohn's disease with complication, unspecified gastrointestinal tract location (HCC) [K50.919] 01/28/2025 12:[address] [facility] [place] Scan [address] [place] [address] Crohn's disease with complication, unspecified gastrointestinal tract location (HCC) [K50.919] 02/17/2025 1:30 PM EST Office Visit Vascular Medicine [address] [place] [address] Coronary artery calcification; Aortic root dilation 02/17/2025 2:45 PM EST Office Visit Preventive Cardiology [address] [place] [address] Mary Fatima, DRUM SANDER OFFBEARER.[place] [address] [place] [address] Coronary artery calcification; Aortic root dilation documented as of this encounter Goals Goal Patient Goal Type Associated Problems Recent Progress Patient-Stated? Author Blood Pressure < 130/80 Blood Pressure 126/70(2024 2:53 PM EDT) No Moriah Sullivan, RN documented as of this encounter Visit Diagnoses Not on filedocumented in this encounter Care Teams Chair Car Attendant Relationship Specialty Start Date End Date Shade Leon [address] [place] [address] PCP - General 06/22/00 Damir Witt MD [address] [place] [address] Primary Staff Physician Cardiology 12/13/22 documented as of this encounter
--- OUTSIDE RECORDS SUMMARY | 2024-12-16 11:02 | XMS_ITS | Encounter Summary ---
Author Organization [facility] Address [address] [place] [address] Phone Care Team Providers Care Risk Analyst Name Role Phone Madi Leon DO Primary Care Provider [phone] Encounter Details Date Type Department Care Team (Late st Contact Info) Description 09/01/2022 Orders Only [facility] [address] [place] [place] [address] Conversion, Onbase Social History Tobacco Use Types [...] r Schedule OUTSIDE LAB SCAN Lab Ordered: 09/01/2022 documented as of this encounter Visit Diagnoses Not on filedocumented in this encounter Care Teams Risk Analyst Relationship Specialty Start Date End Date Madi Leon DO PCP - General 03/13/1979 documented as of this encounter
--- OUTSIDE RECORDS SUMMARY | 2024-12-16 11:02 | XMS_ITS | Encounter Summary ---
Author Organization [facility] Address [address] [place] [address] Care Team Providers Care Revenue Specialist Name Role Phone Edward Shadejodie Menjivarmond Primary Care Provider [phone] Damir Witt MD Unavailable [phone] Source Comments In the event this information is protected by the Federal Confidentiality of Alcohol and Drug AbusePatient Records regulations: The Federal rules restrict any use of the information to criminally investigate or prosecute any alcohol or drug abuse patient.[facility] Encounter Details Date Type Department Care Team (Late st Contact Info) Description 04/16/2023 Get Medical Advice Gastroenterology [address] [place] [address] Per Andres MD, PhD [address] [place] [address] Esomeprazole Social History Tobacco Use Types Packs/Day Years [...] is lower risk 8 08/09/2022 Data from: https://www.neighborhoodatlas.medicine.[facility].edu/. Last address used for calculation [address] 08/09/2022 Sex and Gender Information Value Date Recorded Sex Assigned at Not on file Legal Sex Male 9:36 AM EST Gender Identity Not on file Sexual Orientation Not on file documented as of this encounter Miscellaneous Notes * Telephone Encounter - Brittny Callejas LPN - 04/17/2023 2:53 PM EST Images from the original note were not included. Per Andres MD, PhD Brittny Callejas LPN Good morningBrittny. Yes, ok to go back to pantoprazole. Thanks Pended in refill encounter 04/17/23, routed to Dr Moss for approval. Brittny Callejas LPN documented in this encounter Plan of Treatment Upcoming Encounters Date Type Department Care Team (Latest Contact Info) Description 12/26/2024 4:30 PM EDT [facility] Gastroenterology [address] [address] Per Andres MD, PhD [address] [place] [address] Follow Up 12/30/2024 12:45 PM EDT Appointment Cardiology [address] [place] [address] DEVICE CHECK FOR MRI CLEARENCE 12/30/2024 2:10 PM EDT Appointment MRI Q [address] [address] DUE TO PT IMPLANT- IF APPT NEEDS TO BE RESCHEDULED IT MUST BE SENT TO THE FOLLOWING STAFF MESSAGE ADDRESS: IMAGING IMPLANTS [[id number]] ICD approved to schedule by . 01/28/2025 11:00 AM EST Appointment [facility] [place] Scan [address] [place] [address] Crohn's disease with complication, unspecified gastrointestinal tract location (HCC) [K50.919] 01/28/2025 12:30 PM EST Appointment [facility] [place] Scan [address] [place] [address] Crohn's disease with complication, unspecified gastrointestinal tract location (HCC) [K50.919] 02/17/2025 1:30 PM EST Office Visit Vascular Medicine [address] [place] [address] Coronary artery calcification; Aortic root dilation 02/17/2025 2:45 PM EST Office Visit Preventive Cardiology [address] [place] [address] Mary Fatima, SUPERVISOR OF WAY.[employer]ESSIONAL [employer]LET[employer] [address] [place] [address] Coronary artery calcification; Aortic root dilation documented as of this encounter Visit Diagnoses Not on filedocumented in this encounter Care Teams Revenue Specialist Relationship Specialty Start Date End Date Shade Leon [address] [place] [address] PCP - General 06/22/00 Damir Witt MD [address] [place] [address] Primary Staff Physician Cardiology 12/13/22 documented as of this encounter
--- OUTSIDE RECORDS SUMMARY | 2024-12-16 11:02 | XMS_ITS | Encounter Summary ---
Author Organization [facility] Address [address] [place] [address] Care Team Providers Care Mine Equipment Design Engineer Name Role Phone Shade Leon Primary Care Provider [phone] Damir Witt MD Unavailable Source Comments In the event this information is protected by the Federal Confidentiality of Alcohol and Drug AbusePatient Records regulations: The Federal rules restrict any use of the information to criminally investigate or prosecute any alcohol or drug abuse patient.[facility] Encounter Details Date Type Department Care Team (Late st Contact Info) Description 04/08/2024 Patient Msg Cardiology [address] [place] [id number] Provider, Alessandra Defabimael home monitor disconnected from site Social History Tobacco Use Types Packs/Day Years [...] to sleep or slept in a senior care (including now)? No 06/24/2022 Area Deprivation Index Answer Date Oscar rded National Score (1-100), lower number is lower ri sk 89 08/09/2022 State Score (1-10), lower number is lower risk 8 08/09/2022 Data from: https://www.neighborhoodatlas.medicine.[facility].edu/. Last address used for calculation [address] 08/09/2022 Sex and Gender Information Value Date Recorded Sex Assigned at Not on file Legal Sex Male 9:36 AM EST Gender Identity Not on file Sexual Orientation Not on file documented as of this encounter Plan of Treatment Upcoming Encounters Date Type Department Care Team (Latest Contact Info) Description 12/26/2024 4:30 PM EDT [facility] Gastroenterology [address] [address] Per Andres MD, PhD [address] [place] [address] Follow Up 12/30/2024 12:45 PM EDT Appointment Cardiology [address] [place] [address] DEVICE CHECK FOR MRI CLEARENCE 12/30/2024 2:10 PM EDT Appointment MRI Q [address] [place] [address] DUE TO PT IMPLANT- IF APPT NEEDS TO BE RESCHEDULED IT MUST BE SENT TO THE FOLLOWING STAFF MESSAGE ADDRESS: IMAGING IMPLANTS [[id number]] ICD approved to schedule by . 01/28/2025 11:00 AM EST Appointment [facility] [place] Scan [address] [place] [address] Crohn's disease with complication, unspecified gastrointestinal tract location (HCC) [K50.919] 01/28/2025 12:30 PM EST Appointment [facility] [place] Scan [address] [place] [address] Crohn's disease with complication, unspecified gastrointestinal tract location (HCC) [K50.919] 02/17/2025 1:30 PM EST Office Visit Vascular Medicine [address] [place] [address] Coronary artery calcification; Aortic root dilation 02/17/2025 2:45 PM EST Office Visit Preventive Cardiology [address] [place] [id number] Mary Fatima APRN.[employer] [address] [place] [address] Coronary artery calcification; Aortic root dilation documented as of this encounter Goals Goal Patient Goal Type Associated Problems Recent Progress Patient-Stated? Author Blood Pressure < 130/80 Blood Pressure 126/70(2024 2:53 PM EDT) No Moriah Sullivan, RN documented as of this encounter Visit Diagnoses Not on filedocumented in this encounter Care Teams Mine Equipment Design Engineer Relationship Specialty Start Date End Date Shade Leon [address] [place] [address] PCP - General 06/22/00 Damir Witt MD [address] [place] [address] Primary Staff Physician Cardiology 12/13/22 documented as of this encounter
--- OUTSIDE RECORDS SUMMARY | 2024-12-16 11:04 | XMS_ITS | CCD ---
Author Organization [facility] Inform ion Partnership [facility] Care Team Providers Care [employer]an Manufacturing Specialist Name Role Phone DELMIS HORN Unavailable Unavailable BALL, DELMIS E Unavailable Unavailable BALL, DELMIS E Unavailable Unavailable BALL, DELMIS E Unavailable Unavailable BALL, DELMIS E Unavailable Unavailable BALL, DELMIS E Unavailable Unavailable BALL, DELMIS E Unavailable Unavailable BALL, DELMIS E Unavailable Unavailable BALL, DELMIS E Unavailable Unavailable BALL, DELMIS E Unavailable Unavailable BALL, DELMIS E Unavailable Unavailable BALL, DELMIS E Unavailable Unavailable RICHIE, HANI Attending Unavailable ELOISE STOKES Primary Care Unavailable ELOISE STOKES Referring Unavailable ID Procedure Practitioner Unavailab BRIGID Arboleda Admitting Unavailable ERWIN JACKSON Surgeon Unavailable UNKNOWN, PROVIDER Surgeon Unavailable ID Procedure Practitioner Unavailab le Unavailable Unavailable Delmis Horn Unavailable DELMIS HORN Primary Care Physician [phone] DO Delmis Horn Primary Care Provider MD Eloise Culver Attending Provider Unavailable Unavailable DO Delmis Horn Primary Care Provider MD Eloise Culver Attending Provider DO Delmis Horn Primary Care Provider MD Eloise Culver Attending Provider Delmis Horn Unavailable Nano Turcios Unavailable DO Delmis Horn Primary Care Provider MD Eloise Culver Attending Provider Betty CHACON Primary Care Physician Dr. Delmis Horn Primary Care Dr. Delmis Menjivar Primary Care Kin Horn, Dr. Delmis Alicea [facility] Care Kin Culver II, Dr. Eloise Bautista Referring Unavailable McGuinn II, Dr. Eloise Bautista Attending Unavailable Ball, Dr. Delmis Alicea [facility] Care Kin Culver, Eloise Bautista Admitting Unavail able McGuinn, Eloise Bautista Attending Unavail able Ball, Delmis Primary Care Unavailable McGuinn, Eloise Bautista Admitting Unavail able McGuinn, Eloise Bautista Attending Unavail able Ball, Delmis Primary Care Unavailable McGuinn, Eloise Bautista Admitting Unavail able McGuinn, Eloise Bautista Attending Unavail able Justina, Delmis Primary Care Unavailable BALL, DR BENITES Admitting Unavailable BALL, DR BENITES Attending Unavailable BALL, DR BENITES Primary Care Unavailable BALL, DR BENITES Consulting Unavailable BALL, DR BENITES Primary Care Unavailable PAY ., DR HERNÁNDEZ Admitting Unavailable PAY ., DR HERNÁNDEZ Attending Unavailable PAY ., DR HERNÁNDEZ Consulting Unavailable BALL, DR BENITES Admitting Unavailable BALL, DR BENITES Attending Unavailable BALL, DR BNEITES Primary Care Unavailable BALL, DR BENITES Consulting Unavailable KIARRA, ELOISE Admitting Unavailable KIARRA, ELOISE Attending Unavailable BALL, DR BENITES Primary Care Unavailable KIARRA, ELOISE Mcdaniel Unavailable SALAM, BRADY Admitting Unavailable SALAM, BRADY Attending Unavailable BALL, DR BENITES Primary Care Unavailable SALAM, BRADY Consulting Unavailable SALAM, BRADY Admitting Unavailable SALAM, BRADY Attending Unavailable BALL, DR BENITES Primary Care Unavailable SALAM, BRADY Consulting Unavailable MISC, DR COBB Admitting Unavailable MISC, DR COBB Attending Unavailable JUSTINA, DR BENITES Primary Care Unavailable MISC, DR COBB Consulting Unavailable SALAM, BRADY Admitting Unavailable SALAM, BRADY Attending Unavailable BALL, DR BENITES Primary Care Unavailable SALAM, BRADY Consulting Unavailable MISC, DR COBB Admitting Unavailable MISC, DR COBB Attending Unavailable BALL, DR BENITES Primary Care Unavailable MISC, DR COBB Consulting Unavailable KIARRA, ELOISE Admitting Unavailable KIARRA, ELOISE Attending Unavailable BALL, DR BENITES Primary Care Unavailable KIARRA, ELOISE Consulting Unavailable Shade Horn Primary Care Provider SHADE HORN [facility] Care Unavailab le ISA CHENG, JAY Referring Unavailable [facility] Unavailab le ISA CHENG, JAY Referring Unavailable Nunu Flood Unavailable Damir Witt MD Unavailable SALAM, Cordero Consulting Unavailable OSWALDO, DO Ronobir R Admitting Unavailabl e OSWALDO, DO Ronobir R Attending Unavailabl e MD Brady HELLER Consulting Unavailable SALAM, Cordero Consulting Unavailable SALAM, Cordero Consulting Unavailable SALAM, Cordero Consulting Unavailable SALAM, Cordero Consulting Unavailable SALAM, Cordero Consulting Unavailable SALAM, Cordero Consulting Unavailable SALAM, Cordero Consulting Unavailable SALAM, Cordero Consulting Unavailable SALAM, Cordero Consulting Unavailable Janusz Dyer Attending Unavaila ble SALAM, Cordero Attending Unavailable SALAM, Cordero Attending Unavailable ALAHMAD, Alakelly Attending Unavailable OSWALDO, DO Ronobir R Admitting Unavailabl e Razack, Claudy T. Consulting Unavailable Razack, Claudy T. Consulting Unavailable Razack, Claudy T. Consulting Unavailable Razyojana, Claudy T. Consulting Unavailable Ball, Shade Lam Primary Care Provider [phone] Delmis Horn MD Primary Care Provider Delmis Horn DO Primary Care Provider Delmis Horn DO Attending Provider KIKO DUMONT Attending Unavailable BALL, SHADE LAM [facility] Care Unavailab le SELF Referring Unavailable BALL, SHADE LAM Primary Care Unavailab le ISA CHENG, JAY Referring Unavailable BALL, SHADE LAM Primary Care Unavailab le ISA CHENG, JAY Referring Un[facility] Unavailab DREAD Joy MD Referring Unavailable DREAD FAY MD Attending Unavailable RICHARD LAWRENCE Attending Unavailab le BALL, SHADE LAM Primary Care Unavailab le ISA CHENG, JAY Referring Unavailable BALL, SHADE LAM Primary Care Unavailab DAMIR Franklin Referring Unavailable BALL, SHADE LAM Primary Care Unavailab SAIGE Monte Attending Unavailable BALL, SHADE LAM Primary Care Unavailab le BALL, SHADE LAM Primary Care Unavailab RICHARD Garcia Referring Unavailab le BALL, SHADE LAM Primary Care Unavailab le ISA CHENG, JAY Referring Unavailable BALL, SHADE LAM Primary Care Unavailab le [facility] Care Unavailab le ISA CHENG, JAY Attending Unavailable DAMIR WITT Referring [facility]available [facility] ISA CHENG, JAY Referring Unavailable [facility] Unavailab le JUDIT GUDINO Attending Unavailable ISA CHENG, JAY Referring Unavailable [facility] Unavailab le BALL, SHADE [facility] Care Unavailab le ISA CHENG, JAY Referring Unavailable [facility] Unavailab le ISA CHENG, JAY Referring Unavailable [facility] Unavailab le ISA CHENG, JAY Referring Unavailable ISA CHENG, JAY Referring Unavailable [facility]avail[facility]availab le [facility] Unavailab le ISA CHENG, JAY Attending Unavailable [facility]availab le [facility]ail[facility] Unavailab le ISA CHENG, JAY Attending Unavailable [facility] Unavailab le ENOCHS-KIMRICHARD Referring Unavailab le ENOCHS-KIMRICHARD Attending Unavailab le BALL, [facility] Unavailab le Ball Delmis JONES Primary Care Provider SKYLAR JACOB Attending Unavailable SKYLAR JACOB Attending Unavailable EDGARDO RAMEY Attending Unavailable DELMIS HORN Referring Unavailable EDGARDO RAMEY Attending Unavailable JUSTINA DELMIS E Referring Unavailable SKYLAR JACOB Attending Unavailable SKYLAR JACOB Attending Unavailable EDGARDO RAMEY Attending Unavailable DELMIS HRON E Referring Unavailable SKYLAR JACOB Attending Unavailable SKYLAR JACOB Attending Unavailable Allergies Allergy Classification Reported Allergen(s) Allergy Type Date of Onset Reaction(s) Facility Acetaminophen (2 sources) Acetaminophen Drug Allergy 06-22-19 Other: See Comments [facility] [place] azaTHIOprine (2 sources) azaTHIOprine Drug Allergy 06-22-19 23 Other: See Comments [facility] (2 sources) Belladonna Alkaloids Drug Allergy 01-05-20 [facility] Repository (20 sources) azaTHIOprine; Translations: [Imuran] Drug Allergy 10-26-19 03 Joint pain (finding), Other: See Comments -[facility] [address] [place] Work Phone: (9 sources) azaTHIOprine; Translations: [azathioprine] Drug Allergy 11-19-[address] [facility] (20 sources) Acetaminophen; Translations: [acetaminophen] Drug Allergy 06-22-19 23 Fever (finding), Other: See Comments [facility] (1 source) Acetaminophen Drug Allergy 03-04-20 21 [facility] Repository (1 source) Allergies Reconciled Propensity to adverse reactions Unknown [facility] [employer] Other (1 source) patient allergy list reviewed by nurse or physicia Propensity to adverse reactions 07-28-19 19 Comment:Done [facility] [employer] Other (1 source) Acetaminophen; Translations: [Tylenol] Drug Allergy [facility] Repository (20 sources) Acetaminophen Drug Allergy 06-22-19 Fever, Unknown [facility] Medications Current Medications Medication Drug Class(es) Dates Sig (Normalized) Sig (Original) 2.4 ML risankizumab-rzaa 150 MG/ML Cartridge [Skyrizi] (2 sources) Skyrizi 360 MG/2.4ML as directed Subcutaneous EVERY 8 WEEKS Active Activated Charcoal (11 sources) [id number] 200 actuat albuterol 0.09 mg/actuat metered dose inhaler (20 sources) beta2-Adrenergic Agonist Start: 05-27-2022 take 2 puff(s) by inhalation every six hours albuterol HFA 90 mcg/act inhaler Inhale 2 puffs every 6 (six) hours if needed 05/27/2022 Active amLODIPine 5 mg oral tablet (20 sources) Dihydropyridine Calcium Channel Erica Start: 06-19-2022 End: 02-28-2024 take 1 tablet by mouth every twenty-four hours amLODIPine Besylate 5 MG 1 tablet Orally Once a day for 90 days July, Active Start: 02-24-2021 End: 10-12-2022 take 1 tablet by mouth once daily amLODIPine (NORVASC) 2.5 mg tablet Take 2.5 mg by mouth once daily. 0 08/10/2022 10/10/2022 Discontinued Start: 02-24-2021 take 1 tablet by aguilar th once daily amLODIPine Besylate 10 MG Oral Tablet TAKE 1 TABLET DAILY. Quantity: 90 Refills: 3 Ordered: 24-Feb-2021 Presley Kiran MD Start : 24-Feb-2021 Active Comment on above: Take 2.5 mg by mouth once daily. ascorbic acid 125 mg / iron carbonyl 65 mg delayed release oral tablet (2 sources) Vitamin C Start: 08-02-19 End: 01-29-20 take 1 tablet by mouth once daily iron,carbonyl-vitamin C (VITRON-C) 65 mg iron- 125 mg TbEC Take 1 tablet by mouth once daily. 30 tablet 5 08/01/2022 08/15/2022 Discontinued Comment on above: Take 1 tablet by aguilar once daily. ascorbic acid 4700 mg / polyethylene glycol 3350 [id number] mg / potassium chloride 1015 mg / sodium ascorbate 5900 mg / sodium chloride 2690 mg / sodium sulfate 7500 mg powder for oral solution (14 sources) Osmotic Laxative, Vitamin C Start: 07-30-19 End: 02-28-20 PEG-3350/Electrolytes /Ascorbat 100 g reconstituted solution use as directed by prescriber 07/29/2022 02/28/2024 Discontinued (Med list cleanup) carvedilol 6.25 mg oral tablet (7 sources) alpha-Adrenergic Erica, beta-Adrenergic Erica Start: 03-29-19 take 1 tablet by mouth every twelve hours cephalexin 500 mg oral capsule (3 sources) Cephalosporin Antibacterial Start: 09-05-19 take 1 capsule by mouth three times daily Cephalexin 500 mg capsule Active 500 MG PO Three times daily 30 September 04, 2024 12:00am Complies with drug therapy Start: 03-28-2023 take 1 tablet by aguilar every eight hours Cephalexin 500 MG 1 tablet Orally tid for 5 days Mar, Active certolizumab pegol (20 sources) End: 02-28-2024 Certolizumab Pegol (Cimzia S symone Kit) 6 X 200 MG/ML Prefilled Syringe Kit 02/28/2024 Discontinued (Med list cleanup) End: 02-28-2024 Certolizumab Pegol (CIMZIA S C) 02/28/2024 Discontinued (Med list cleanup) Certolizumab Peg ol (CIMZIA SC) Active cholecalciferol 0.025 mg oral capsule (20 sources) Vitamin D Start: 06-06-2023 cholecalcifero l (Vitamin D-3) 25 MCG (1000 UT) capsule Daily 06/06/2023 Active Start: 06-29-2018 Cholecalcifero l, Vitamin D3, 25 mcg (1,000 unit) cap Take by mouth q 24 HR. 06/29/2018 Active take 1 capsule by mo uth every twenty-four hours Vitamin D3 25 MCG (1000 UT) 1 capsule Orally Once a day Active Comment on above: Take by mouth q 24 H R. clotrimazole 10 mg/ml topical solution (20 sources) Azole Antifungal Start: 04-12-19 clotrimazole (Lotrimin) 1 % external solution Indications: Acute swimmer's ear of left side 4 drops to left ear 2 times daily for 10 days 10 mL 1 04/12/2023 Active Copper (20 sources) Copper-containing Intrauterine Device COPPER ORAL Take by mouth. Active copper citrate 2 mg capsule (20 sources) Start: 12-03-19 23 End: 05-31-19 24 take 1 capsule by mouth once daily copper citrate 2 mg capsule Take 1 capsule by mouth once daily. 30 capsule 5 12/02/2022 05/31/2023 Active Comment on above: Take 1 capsule by mo uth once daily. econazole nitrate 10 mg/ml topical cream (20 sources) Azole Antifungal Start: 09-27-19 econazole nitrate 1 % cream Indications: Tinea pedis of both feet Apply between toes and to the bottom of feet twice a day 85 g 3 09/27/2023 Active enteric contrast (will be provided with radiology test) (7 sources) Start: 09-10-19 End: 09-11-19 enteric contrast (will be provided with radiology test) Indications: Crohn's disease with complication, unspecified gastrointestinal tract location (HCC) For CT ENTEROGRAPHY W IVCON order Administer, As Directed One Time Only, via Oral, Rectal, both Oral and Rectal, Enteric Tube, Stoma or Indwelling Catheter, Enteric Contrast as designated per enteric contrast guidelines. 1 each 09/09/2024 09/10/2024 Active Start: 05-02-2024 End: 05-03-2024 enteric contrast (will be pr ovided with radiology test) For CT ENTEROGRAPHY W IVCON order Administer, As Directed One Time Only, via Oral, Rectal, both Oral and Rectal, Enteric Tube, Stoma or Indwelling Catheter, Enteric Contrast as designated per enteric contrast guidelines. 1 Each 05/02/2024 05/03/2024 Active Start: 11-06-2023 End: 11-07-2023 enteric contrast (will be pr ovided with radiology test) For CT ENTEROGRAPHY W IVCON order Administer, As Directed One Time Only, via Oral, Rectal, both Oral and Rectal, Enteric Tube, Stoma or Indwelling Catheter, Enteric Contrast as designated per enteric contrast guidelines. 1 Each 11/06/2023 11/07/2023 Active Start: 2023 End: 06-14-2023 enteric contrast (will be pr ovided with radiology test) For CT ABD/PEL W IVCON Routine order Administer, As Directed One Time Only, via Oral, Rectal, both Oral and Rectal, Enteric Tube, Stoma or Indwelling Catheter, Enteric Contrast as designated per enteric contrast guidelines 1 Each 0 2023 06/14/2023 Active Start: 04-26-2023 End: 04-27-2023 enteric contrast (will be pr ovided with radiology test) Indications: Crohn's disease of small and large intestines with complication (HCC) For CT ENTEROGRAPHY W IVCON order Administer, As Directed One Time Only, via Oral, Rectal, both Oral and Rectal, Enteric Tube, Stoma or Indwelling Catheter, Enteric Contrast as designated per enteric contrast guidelines. 1 Each 0 04/26/2023 04/27/2023 Active Comment on above: For CT ENTEROGRAPHY W IVCON order Administer, As Directed One Time Only, via Oral, Rectal, both Oral and Rectal, Enteric Tube, Stoma or Indwelling Catheter, Enteric Contrast as designated per enteric contrast guidelines. For CT ABD/PEL W IVC ON Routine order Administer, As Directed One Time Only, via Oral, Rectal, both Oral and Rectal, Enteric Tube, Stoma or Indwelling Catheter, Enteric Contrast as designated per enteric contrast guidelines esomeprazole 20 mg delayed release oral capsule (19 sources) Proton Pump Inhibitor Start: 02-11-20 23 End: 02-28-20 24 take 1 capsule by mouth once daily esomeprazole (NexIUM) [address] capsule Take 20 mg by mouth Daily 02/10/2023 02/28/2024 Discontinued (Med list cleanup) Start: 01-05-2023 take 1 capsule by [facility] once daily esomeprazole (NEXIUM) 20 mg capsule Take 1 capsule by mouth once daily. 30 capsule 1 01/05/2023 Active Comment on above: Take 1 capsule by [facility] once daily. take 1 capsule by [facility] once daily ferrous bis-glycinate chelate (IRON BISGLYCINATE CHELATE) 29 mg iron cap (20 sources) Start: 3 take 1 capsule by mouth once daily ferrous bis-glycinate chelate (IRON BISGLYCINATE CHELATE) 29 mg iron cap Indications: Crohn's disease of small intestine with complication (HCC) Take 1 capsule by mouth once daily. 1 capsule 5 08/15/2022 Active Comment on above: Take 1 capsule by [facility] once daily. FERROUS BISGLYCINATE CHELATE PO (20 sources) Start: 3 take 1 capsule by mouth in the morning FERROUS BISGLYCINATE CHELATE PO Take 1 capsule by mouth in the morning. 08/15/2022 Active ferrous sulfate 325 mg oral tablet (6 sources) Start: 4 take 1 tablet by mouth once daily Ferrous Sulfate 325 mg (65 mg iron) tablet Active 325 MG PO Daily June 06, 2023 12:00am Complies with drug therapy take 1 tablet by [facility] every twenty-four hours Iron 325 (65 Fe) MG 1 tablet Orally Once a day Active fluticasone propionate 0.05 mg/actuat metered dose nasal spray (20 sources) Corticosteroid Start: 05-16-2022 fluticasone (F lonase) 50 MCG/ACT nasal spray 2 sprays 1 (one) time each day at the same time 05/16/2022 Active hydrocortisone 10 mg/ml / neomycin 3.5 mg/ml / polymyxin b [id number] unt/ml otic suspension (2 sources) Aminoglycoside Antibacterial, Polymyxin-class Antibacterial, Corticosteroid Start: 03-28-2023 Uthwlivu-Vohjbdxts-PO [id number] as directed Ophthalmic Three times a day for 7 days Mar, Active Hyoscyamine (11 sources) Iron (11 sources) iv contrast (will be provided with radiology test) (8 sources) Start: 11-06-2024 End: 11-07-2024 iv contrast (will be provided with radiology test) MRI Prostate Inject, intravenously, once for 1 dose. No IV access, insert saline lock prior to the beginning of sedation, infusion, injection of imaging exam. Discontinue saline lock post exam. If Pt. has a central line or IVAD, may access for administration according to line specific nursing protocol. Once exam is complete flush line and de-access according to line specific nursing protocol in the MR contrast administration guidelines link. 1 each 11/06/2024 11/07/2024 Active Start: 09-09-2024 End: 09-10-2024 iv contrast (will be provide d with radiology test) Indications: Crohn's disease with complication, unspecified gastrointestinal tract location (HCC) CT Enterography W Inject, intravenously, once for 1 dose.No IV access, insert saline lock prior to the beginning of sedation, infusion, injection of imaging exam. Discontinue saline lock post exam. If Pt. has a central line or IVAD, may access for administration according to line specific nursing protocol. Once exam is complete flush line and de-access according to line specific nursing protocol in the CT contrast administration guidelines link. 1 each 09/09/2024 09/10/2024 Active Start: 05-02-2024 End: 05-03-2024 iv contrast (will be provide d with radiology test) CT Enterography W Inject, intravenously, once for 1 dose.No IV access, insert saline lock prior to the beginning of sedation, infusion, injection of imaging exam. Discontinue saline lock post exam. If Pt. has a central line or IVAD, may access for administration according to line specific nursing protocol. Once exam is complete flush line and de-access according to line specific nursing protocol in the CT contrast administration guidelines link. 1 Each 05/02/2024 05/03/2024 Active Start: 11-06-2023 End: 11-07-2023 iv contrast (will be provide d with radiology test) CT Enterography W Inject, intravenously, once for 1 dose.No IV access, insert saline lock prior to the beginning of sedation, infusion, injection of imaging exam. Discontinue saline lock post exam. If Pt. has a central line or IVAD, may access for administration according to line specific nursing protocol. Once exam is complete flush line and de-access according to line specific nursing protocol in the CT contrast administration guidelines link. 1 Each 11/06/2023 11/07/2023 Active Start: 2023 End: 06-14-2023 iv contrast (will be provide d with radiology test) CT ABD/PEL -Inject, intravenously, once for 1 dose.No IV access, insert saline lock prior to the beginning of sedation, infusion, injection of imaging exam. Discontinue saline lock post exam. If Pt. has a central line or IVAD, may access for administration according to line specific nursing protocol. Once exam is complete flush line and de-access according to line specific nursing protocol in the CT contrast administration guidelines link. 1 Each 0 2023 06/14/2023 Active Start: 04-26-2023 End: 04-27-2023 iv contrast (will be provide d with radiology test) Indications: Crohn's disease of small and large intestines with complication (HCC) CT Enterography W Inject, intravenously, once for 1 dose.No IV access, insert saline lock prior to the beginning of sedation, infusion, injection of imaging exam. Discontinue saline lock post exam. If Pt. has a central line or IVAD, may access for administration according to line specific nursing protocol. Once exam is complete flush line and de-access according to line specific nursing protocol in the CT contrast administration guidelines link. 1 Each 0 04/26/2023 04/27/2023 Active Comment on above: CT Enterography W In ject, intravenously, once for 1 dose.No IV access, insert saline lock prior to the beginning of sedation, infusion, injection of imaging exam. Discontinue saline lock post exam. If Pt. has a central line or IVAD, may access for administration according to line specific nursing protocol. Once exam is complete flush line and de-access according to line specific nursing protocol in the CT contrast administration guidelines link. CT ABD/PEL -Inject, intravenously, once for 1 dose.No IV access, insert saline lock prior to the beginning of sedation, infusion, injection of imaging exam. Discontinue saline lock post exam. If Pt. has a central line or IVAD, may access for administration according to line specific nursing protocol. Once exam is complete flush line and de-access according to line specific nursing protocol in the CT contrast administration guidelines link. lisinopril 20 mg oral tablet (20 sources) Angiotensin Converting Enzyme Inhibitor Start: take 1 tablet by mouth once daily Lisinopril 20 mg tablet Active 0 .ROUTE .COMPLEX 90 February 04, 2024 6:16pm TAKE ONE TABLET BY MOUTH EVERY DAY Complies with drug therapy Start: 10-06-2021 End: 07-25-2023 take 10 mg by mouth once daily lisinopril (ZESTRIL) 20 mg tablet Take 10 mg by mouth once daily. 10/06/2021 Active Start: 10-06-2021 End: 02-04-2024 take 1 tablet by mouth once daily Lisinopril 20 mg tablet Discontinued 20 MG PO Daily 90 90 September 27, 2023 11:33am February 04, 2024 6:16pm Comment on above: Take 20 mg by mouth once daily. Take 10 mg by mouth once daily. magnesium oxide 500 mg oral tablet (20 sources) Start: 10-06-2021 take 1 mg by mouth once daily magnesium oxide base 500 mg oral tablet mg, tab(s), Oral, Daily, Refill(s) 0 Start Date: 10/06/21 Status: Ordered Start: 11-18-2016 End: 06-06-2023 take 1 tablet by mouth once daily Magnesium Oxide 400 mg Tablet Discontinued 400 MG PO Daily November 18, 2016 12:00am June 06, 2023 9:17am take 1 capsule by [facility] once daily magnesium oxide 400 MG capsule Take 1 capsule by mouth 1 (one) time each day Active 24 hr metoprolol succinate 25 mg extended release oral tablet (20 sources) beta-Adrenergic Erica Start: 06-06-2023 take 1 tablet by mouth twice daily Metoprolol Tartrate 50 mg tablet Active 50 MG PO Twice daily June 06, 2023 12:00am Complies with drug therapy Start: 12-14-2022 End: 11-12-2024 take 1 tablet by mouth twice daily metoprolol succinate ER (TOPROL XL) 25 mg 24 hr tablet Indications: Cardiomyopathy, unspecified type (HCC) TAKE ONE TABLET BY MOUTH TWICE A DAY 180 tablet 3 11/12/2024 Active Start: 07-30-2022 End: 11-25-2022 take 1 tablet by mouth once daily metoprolol succinate ER (TOPROL XL) 25 mg 24 hr tablet Indications: Cardiomyopathy, unspecified type (HCC) Take 1 tablet by mouth once daily. 90 tablet 3 10/12/2022 11/25/2022 Discontinued Start: 10-06-2021 End: 12-14-2022 take 1 tablet by mouth every twenty-four hours in the morning metoprolol succinate XL (Toprol-XL) 25 MG 24 hr tablet Take 25 mg by mouth in the morning and 25 mg in the evening. 10/06/2021 Active Start: 10-06-2021 End: 06-20-2022 metoprolol 25 mg ER Tab 12.5 mg = 0.5 tab(s), Tab-ER, Oral, Start date 06/20/22 9:00:00 EDT, 06/20/22 2:05:00 EDT Start Date: 06/20/22 Stop Date: 06/20/22 Status: Completed Start: 10-06-2021 take 1 mg by mouth once daily metoprolol 25 mg ER Tab mg tab(s), Oral, Daily, Refills(s) 0 Start Date: 10/06/21 Status: Ordered Start: 04-16-2021 take 0.5 tablet by m out once daily Metoprolol Succinate ER 25 MG Oral Tablet Extended Release 24 Hour 1/2 tablet daily. Quantity: 45 Refills: 3 Ordered: 13-Apr-2022 Eloise Culver MD Start : 16-Apr-2021 Active take 1 tablet by aguilar th every twelve hours Metoprolol Tartrate 50 MG 1 tablet with food Orally Twice a day Active Comment on above: Take 12.5 mg by mout h once daily. Take 1 tablet by aguilar th once daily. Take 1 tablet in the morning and 0.5 tablet in the evening. Take 1 tablet by aguilar th two times a day. Metoprolol-12.5 mg 25 mg (7 sources) take 1 tablet by mouth once daily Metoprolol-12.5 mg 25 mg one half tab orally daily Active minocycline 100 mg oral capsule (20 sources) Tetracycline-clas s Drug End: 02-28-2024 take 1 capsule by mouth every twelve hours minocycline 100 MG capsule 1 capsule every 12 (twelve) hours 02/28/2024 Discontinued (Med list cleanup) take 1 capsule by [facility] every twelve hours Minocycline 50 mg 1 capsule orally BID Active take 1 tablet by mouth once avel y Minocycline HCl - 100 MG Oral Tablet Take 1 tablet daily Quantity: 0 Refills: 0 Ordered: 08-Feb-2022 DO Active Multi Vitamin+ (5 sources) Start: 10-06-2021 Multi Vitamin+ Daily, Refill(s) 0 Start Date: 10/06/21 Status: Ordered Start: 10-06-2021 Multi Vitamin+ Refill(s) 0 Start Date: 10/06/21 Status: Ordered Multivitamin preparation (11 sources) mupirocin 0.02 mg/mg topical ointment (1 source) RNA Synthetase Inhibitor Antibacterial Start: 09-04-2024 Mupirocin 2 % ointment Active 1 APPLIC TOPICAL Twice daily 01 01September 04, 2024 12:00am Complies with drug therapy nystatin 650763 unt/ml oral suspension (20 sources) Polyene Antifungal Start: 06-06-2023 End: 02-28-2024 nystatin (Mycostatin) 158341 UNIT/ML suspension Four times daily 06/06/2023 02/28/2024 Discontinued (Med list cleanup) Start: 06-06-2023 take 1 mL by mouth f our times daily Nystatin 100,000 unit/mL suspension Active 4 ML PO Four times daily June 06, 2023 12:00am swish and swallow Complies with drug therapy Start: 10-09-2022 take 4 mL by mouth f our times daily Nystatin [id number] UNIT/ML 4 mL Mouth/Throat, swish and swallow Four times a day for 10 days Sep, Active Start: 10-09-2022 take 4 mL by mouth f our times daily Nystatin [id number] UNIT/ML 4 mL Mouth/Throat, swish and swallow Four times a day for 10 days Sep, Active pantoprazole 40 mg delayed release oral tablet (20 sources) Proton Pump Inhibitor Start: 04-17-2023 End: 07-25-2023 take 1 tablet by mouth once daily Pantoprazole 40 mg tablet,delayed release (DR/EC) Active 40 MG PO Daily June 06, 2023 12:00am Complies with drug therapy Start: 06-19-2022 End: 12-18-2022 take 1 tablet by mouth once daily, then take 6 tablets by mouth in the morning pantoprazole DR (PROTONIX) 40 mg tablet Take 1 tablet by mouth DAILY (6 AM). 30 tablet 0 11/18/2022 Active Comment on above: Take 1 tablet by aguilar th DAILY (6 AM). Take 1 tablet by aguilar th once daily. polyethylene glycol 3350 with electrolytes Oral Pwdr for Rosemary 4000 mL (NuLytely) (4 sources) Start: 10-08-2021 take 1 dose by mouth once polyethylene glycol 3350 with electrolytes Oral Pwdr for Rosemary 4000 mL (NuLytely) See Instructions, 1 EA, Refill(s) 0, per physician's instructions prior to colonoscopy, [facility] #[id number], 197, cm, 10/06/21 9:20:00 EDT, Height/Length Dosing, 93, kg, 10/06/21 9:20:00 EDT, Weight Dosing Start Date: 10/08/21 Status: Ordered potassium chloride 20 meq extended release oral tablet (20 sources) Start: 07-09-2024 take 4 tablets by mouth once daily potassium chloride 20 mEq TbER Take 4 tablets by mouth once daily. 360 tablet 1 07/09/2024 Active Start: 06-06-2023 take 1 tablet by aguilar th three times daily Potassium Chloride 20 mEq tablet extended release Active 20 MEQ PO Three times daily June 06, 2023 12:00am Complies with drug therapy Start: 04-19-2023 End: 07-08-2024 take 1 tablet by mouth once daily potassium chloride (K-TAB) 10 mEq tablet Take 1 tablet by mouth once daily. 7 tablet 04/19/2023 07/08/2024 Discontinued Start: 03-01-2023 End: 07-08-2024 take 3 tablets by mouth in the morning potassium chloride CR (K-Tab) 20 MEQ ER tablet Take 60 mEq by mouth in the morning. 03/01/2023 Active Start: 09-02-2022 End: 12-26-2022 take 3 tablets by mouth once daily potassium chloride 20 mEq TbER Take 3 tablets by mouth once daily. 90 tablet 2 12/27/2022 Active Start: 06-29-2022 End: 09-02-2022 take 2 tablets by mouth once daily potassium chloride 20 mEq TbER Take 2 tablets by mouth once daily. 0 06/29/2022 09/02/2022 Discontinued Start: 10-06-2021 take 2 tablets by mo uth once daily potassium chloride 20 mEq ER Tab 40 mEq = 2 tab(s), Oral, Daily, Refills(s) 0 Start Date: 10/06/21 Status: Ordered Start: 10-06-2021 take 1 tablet by aguilar twice daily potassium chloride 20 mEq ER Tab mEq tab(s), Oral, BID, Refills(s) 0 Start Date: 10/06/21 Status: Ordered take 1 tablet by aguilar th every eight hours Potassium Chloride ER 20 MEQ 1 tablet with food Orally THREE TIMES A DAY Active take 1 tablet by aguilar th once daily Potassium Chloride ER 20 MEQ Oral Tablet Extended Release Take 1 tablet daily Quantity: 0 Refills: 0 Ordered: 11-May-2021 DO Active Comment on above: Take 2 tablets by mo ut once daily. Take 3 tablets by mo [facility] once daily. take 3 tablets by mo [facility] once daily Take 1 tablet by aguilar once daily. predniSONE 5 mg oral tablet (20 sources) Start: 08-07-2024 End: 08-27-2024 take 4 tablets by mouth once daily, then take 3 tablets by mouth once daily, then take 2 tablets by mouth once daily, then take 1 tablet by mouth once daily predniSONE (DELTASONE) 5 mg tablet Take 4 tablets by mouth once daily for 5 days, THEN 3 tablets once daily for 5 days, THEN 2 tablets once daily for 5 days, THEN 1 tablet once daily for 5 days. 30 tablet 2 08/07/2024 08/27/2024 Active Start: 08-09-2023 End: 08-07-2024 take 4 tablets by mouth once predniSONE (DELTASONE) 1 mg tablet TAKE 4 TABLETS BY MOUTH EVERY AFTERNOON 480 tablet 1 02/14/2024 08/07/2024 Discontinued Start: 07-12-2023 End: 02-28-2024 take 1 tablet by mouth in the morning predniSONE (Deltasone) 1 MG tablet Take 1 mg by mouth in the morning. 07/12/2023 02/28/2024 Discontinued (Med list cleanup) Start: 06-06-2023 take 7.5 mg by mouth once avel y Prednisone 5 mg tablet Active 7.5 MG PO Daily June 06, 2023 12:00am Complies with drug therapy Start: 12-27-2022 End: 08-02-2024 take 1 tablet by mouth once daily predniSONE (DELTASONE) 5 mg tablet take 1 tablet by mouth once daily 30 tablet 2 06/08/2023 08/02/2024 Discontinued Start: 11-17-2022 End: 07-10-2023 take 1 tablet by mouth once daily predniSONE (DELTASONE) 1 mg tablet Take 1 tablet by mouth once daily. 60 tablet 0 12/27/2022 07/10/2023 Discontinued Start: 09-05-2022 End: 09-29-2022 take 1 tablet by mouth once daily predniSONE (DELTASONE) 1 mg tablet Take 1 tablet by mouth once daily. 60 tablet 0 09/29/2022 Active Start: 06-19-2022 take 10 mg by mouth once daily predniSONE 10 mg, Oral, Daily, Refills(s) 0 Start Date: 06/19/22 Status: Ordered Start: 10-06-2021 take 1 mg by mouth once daily predniSONE 2.5 mg oral tablet mg tab(s), Oral, Daily, Refills(s) 0 Start Date: 10/06/21 Status: Ordered Start: 10-06-2021 take 1 mg by mouth once daily predniSONE 20 mg Tab mg tab(s), Oral, Daily, Refills(s) 0 Start Date: 10/06/21 Status: Ordered predniSONE Activ e take 1 tablet by aguilar th once daily predniSONE 1 MG Oral Tablet Take 1 tablet daily Quantity: 0 Refills: 0 Ordered: 08-Feb-2022 DO Active Comment on above: Take 10 mg by mouth once daily. Take 1 tablet by aguilar th once daily. take 1 tablet by aguilar th once daily Take 5 mg by mouth o nce daily. rifAXIMin 550 mg oral tablet (20 sources) Rifamycin Antibacterial Start: 10-22-19 End: 02-28-20 24 take 1 tablet by mouth in the morning, then take 1 tablet by mouth in the evening, then take 1 tablet by mouth at bedtime Xifaxan 550 MG tablet Take 550 mg by mouth in the morning and 550 mg in the evening and 550 mg before bedtime. 11/09/2022 02/28/2024 Discontinued (Med list cleanup) Comment on above: Take 1 tablet by aguilar th three times daily for 10 days. Take 1 tablet by aguilar th three times daily for 14 days. Skyrizi (2 sources) Start: 06-20-19 23 Skyrizi See Instructions, q4wk, Refills(s) 0 Start Date: 06/19/22 Status: Ordered Risankizumab-Rzaa (1 source) Start: 06-06-19 24 Risankizumab-Rzaa 360 mg/2.4 mL (150 mg/mL) wearable injector Active 360 MG SUBCUT .every 8 weeks June 06, 2023 12:00am Complies with drug therapy risankizumab-rzaa (SKYRIZI) 360 mg/2.4 mL (150 mg/mL) wearable injector (20 sources) Start: 11-23-19 risankizumab-rzaa (SKYRIZI) 360 mg/2.4 mL (150 mg/mL) wearable injector Indications: Crohn's disease of small intestine with complication (HCC) Inject 360 mg/2.4 mL subcutaneously once every 4 weeks 2.4 mL 11/22/2024 Active Start: 12-26-2023 End: 11-22-2024 risankizumab-rzaa (SKYRIZI) 360 mg/2.4 mL (150 mg/mL) wearable injector Indications: Crohn's disease of small intestine with complication (HCC) Inject 360 mg/2.4 mL subcutaneously once every 4 weeks 2.4 mL 12/26/2023 11/22/2024 Discontinued Start: 12-26-2023 risankizumab-r zaa (SKYRIZI) 360 mg/2.4 mL (150 mg/mL) wearable injector Indications: Crohn's disease of small intestine with complication (HCC) Inject 360 mg/2.4 mL subcutaneously once every 4 weeks 2.4 mL 12/26/2023 Active Start: 12-23-2023 risankizumab-r zaa (SKYRIZI) 360 mg/2.4 mL (150 mg/mL) wearable injector Indications: Crohn's disease of small intestine with complication (HCC) Inject 360 mg subcutaneously every 8 weeks. 2.4 mL 12/23/2023 Active Start: 12-22-2022 End: 12-22-2023 risankizumab-rzaa (SKYRIZI) 360 mg/2.4 mL (150 mg/mL) wearable injector Inject 360 mg subcutaneously every 8 weeks. 2.4 mL 5 12/22/2022 12/22/2023 Discontinued Start: 12-22-2022 risankizumab-r zaa (SKYRIZI) 360 mg/2.4 mL (150 mg/mL) wearable injector Inject 360 mg subcutaneously every 8 weeks. 2.4 mL 5 12/22/2022 Active Start: 12-09-2022 End: 12-22-2022 risankizumab-rzaa (SKYRIZI) 360 mg/2.4 mL (150 mg/mL) wearable injector Inject 360 mg subcutaneously every 4 weeks. 2.4 mL 5 12/09/2022 12/22/2022 Discontinued Start: 12-09-2022 risankizumab-r zaa (SKYRIZI) 360 mg/2.4 mL (150 mg/mL) wearable injector Inject 360 mg subcutaneously every 4 weeks. 2.4 mL 5 12/09/2022 Active Start: 10-27-2022 risankizumab-r zaa (SKYRIZI) 360 mg/2.4 mL (150 mg/mL) wearable injector Inject 360 mg subcutaneously every 4 weeks. 2.4 mL 5 10/27/2022 Active Start: 10-20-2022 End: 10-27-2022 risankizumab-rzaa (SKYRIZI) 360 mg/2.4 mL (150 mg/mL) wearable injector Inject 360 mg subcutaneously every 4 weeks. 2.4 mL 5 10/20/2022 10/27/2022 Discontinued Start: 10-20-2022 risankizumab-r zaa (SKYRIZI) 360 mg/2.4 mL (150 mg/mL) wearable injector Inject 360 mg subcutaneously every 4 weeks. 2.4 mL 5 10/20/2022 Active Start: 09-14-2022 End: 10-20-2022 risankizumab-rzaa (SKYRIZI) 360 mg/2.4 mL (150 mg/mL) wearable injector Inject 360 mg subcutaneously every 4 weeks. 2.4 mL 5 09/14/2022 10/20/2022 Discontinued Start: 07-05-2023 risankizumab-r zaa (SKYRIZI) 360 mg/2.4 mL (150 mg/mL) wearable injector Inject 360 mg subcutaneously every 4 weeks. 2.4 mL 5 09/14/2022 Active End: 09-14-2022 risankizumab-rzaa (SKYRIZI) 360 mg/2.4 mL (150 mg/mL) wearable injector Inject 360 mg subcutaneously every 8 weeks. 0 09/14/2022 Discontinued risankizumab-rza a (SKYRIZI) 360 mg/2.4 mL (150 mg/mL) wearable injector Inject 360 mg subcutaneously every 8 weeks. 0 Active Comment on above: Inject 360 mg subcut aneously every 8 weeks. Inject 360 mg subcut aneously every 4 weeks. Risankizumab-rzaa 360 MG/2.4ML solution cartridge (20 sources) Start: 12-23-19 Risankizumab-rzaa 360 MG/2.4ML solution cartridge Inject 360 mg under the skin 12/22/2022 Active skyrizi 360 mg/2.4ml solution cartridge (3 sources) Skyrizi 360 MG/2.4ML as directed Subcutaneous EVERY 8 WEEKS Active sucralfate 1000 mg oral tablet (4 sources) Aluminum Complex Start: 06-20-19 take 1 tablet by mouth every six hours Carafate 1 GM 1 tablet on an empty stomach Orally qid for 30 days Jun, Active tacrolimus 1 mg oral capsule (14 sources) Calcineurin Inhibitor Immunosuppressant End: 02-28-20 24 take 1 capsule by mouth every twelve hours tacrolimus (Prograf) 1 MG capsule take 2 capsules by mouth every 12 hours Oral for 30 02/28/2024 Discontinued (Med list cleanup) tretinoin 0.5 mg/ml topical cream (13 sources) Retinoid Start: 11-15-19 tretinoin (Retin-A) 0.05 % cream Indications: Acne vulgaris Apply 1.5 g to the face, once daily at evening/night time, 30 day supply 45 g 11/14/2024 Active Start: 11-14-2024 tretinoin (Ret in-A) 0.05 % cream Indications: Acne vulgaris Apply 1.5 g to the face, once daily at evening/night time, 30 day supply 45 g 11/14/2024 Active Start: 11-04-2024 End: 11-14-2024 tretinoin (Retin-A) 0.05 % c ream Indications: Acne vulgaris Apply 1.5 g to the face, once daily at evening/night time, 30 day supply 45 g 11/04/2024 11/14/2024 Discontinued Start: 02-28-2024 tretinoin (Ret in-A) 0.05 % cream Indications: Acne vulgaris Apply 1.5 g to the face, once daily at evening/night time, 30 day supply 45 g 11 02/28/2024 Active 24 hr upadacitinib 15 mg extended release oral tablet (16 sources) End: 02-28-2024 upadacitinib ER (Rinvoq) 15 MG tablet sustained-release 24 hour 1 (one) time each day at the same time 02/28/2024 Discontinued (Med list cleanup) ustekinumab (11 sources) Interleukin-12 Antagonist, Interleukin-23 Antagonist valACYclovir 1000 mg oral tablet (14 sources) Herpesvirus Nucleoside Analog DNA Polymerase Inhibitor, Herpes Simplex Virus Nucleoside Analog DNA Polymerase Inhibitor, Herpes Zoster Virus Nucleoside Analog DNA Polymerase Inhibitor Start: 12-26-2022 End: 02-28-2024 valACYclovir (Valtrex) 1 g tablet Take 1,000 mg by mouth in the morning and 1,000 mg before bedtime. 12/26/2022 02/28/2024 Discontinued (Med list cleanup) vedolizumab (20 sources) Integrin Receptor Antagonist Start: 10-18-2024 inject 0.68 mL by subcutaneous injection every other week vedolizumab (ENTYVIO PEN) 108 mg/0.68 mL pen Indications: 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) Inject 0.68 mL subcutaneously every other week. 2 each 2 10/18/2024 Active Start: 09-18-2024 inject 108 mg by sub cutaneous injection every other week vedolizumab (ENTYVIO PEN) 108 mg/0.68 mL pen Indications: 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) Inject 108mg (1 pen) subcutaneously every other week. 1.36 mL 2 09/18/2024 Active Start: 09-03-2024 End: 09-18-2024 inject 108 mg by subcutaneous injection every other week vedolizumab (ENTYVIO PEN) 108 mg/0.68 mL pen Indications: 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) Inject 108mg (1 pen) subcutaneously every other week. 1.36 mL 2 09/03/2024 09/18/2024 Discontinued Start: 09-03-2024 inject 108 mg by sub cutaneous injection every other week vedolizumab (ENTYVIO PEN) 108 mg/0.68 mL pen Indications: 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) Inject 108mg (1 pen) subcutaneously every other week. 1.36 mL 2 09/03/2024 Active Start: 09-03-2024 inject 0.68 mL by ro bcutaneous injection every other week vedolizumab (ENTYVIO PEN) 108 mg/0.68 mL pen Indications: 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) Inject 0.68 mL subcutaneously every other week. 2 each 2 09/03/2024 Active Start: 08-20-2024 inject 108 mg by sub cutaneous injection every other week vedolizumab (ENTYVIO PEN) 108 mg/0.68 mL pen Indications: 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) Inject 108mg (1 pen) subcutaneously every other week. 1.36 mL 2 08/20/2024 Active Start: 08-20-2024 inject 0.68 mL by ro bcutaneous injection every other week vedolizumab (ENTYVIO PEN) 108 mg/0.68 mL pen Indications: 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) Inject 0.68 mL subcutaneously every other week. 2 each 2 08/20/2024 Active Vitamin B-12 1000 mcg/mL injectable solution (2 sources) Start: 06-19-2022 Vitamin B-12 1 000 mcg/mL injectable solution IntraMuscular, qMonth, Refills(s) 0 Start Date: 06/19/22 Status: Ordered vitamin b12 1 mg/ml injectable solution (20 sources) Vitamin B12 Start: 08-19-2024 cyanocobalamin 1,000 mcg/mL Inject 1 mL every 4 weeks then once per month following 4 mL 3 08/19/2024 Active Start: 04-08-2022 End: 08-19-2024 cyanocobalamin (Vitamin B-12 ) 1000 MCG/ML injection TAKE DIRECTED ONCE A MONTH 04/08/2022 Active Cyanocobalamin S OLN Monthly Injection. Quantity: 0 Refills: 0 Ordered: 11-May-2021 DO Active Comment on above: TAKE DIRECTED ONC E A MONTH Injection for 30 Vitamin B12 50 mcg oral tablet (3 sources) Start: 10-06-2021 take 1 ug by mouth once daily Vitamin B12 50 mcg oral tablet mcg tab(s), Oral, Daily, Refills(s) 0 Start Date: 10/06/21 Status: Ordered Vitamin D3 1000 intl units oral capsule (5 sources) Start: 10-06-2021 take 1 capsule by mouth once daily Vitamin D3 1000 intl units oral capsule mcg cap(s), Oral, Daily, Refills(s) 0 Start Date: 10/06/21 Status: Ordered Vitamin D3 25 MCG (1000 UT) (13 sources) take 1 capsule by mouth once daily Vitamin D3 25 MCG (1000 UT) 1 capsule Orally Once a day Active zolpidem tartrate 10 mg oral tablet (20 sources) gamma-Aminobutyric Acid-ergic Agonist Start: 06-06-2023 End: 09-04-2024 zolpidem (Ambien) 10 MG tablet Daily at bedtime 06/06/2023 Active Start: 10-19-2022 take 1 tablet by mouth at bedt sally Zolpidem Tartrate 10 MG take 1 tablet by mouth at bedtime for 30 Oct, Active Start: 06-30-2022 take 1 tablet by aguilar th once at bedtime Zolpidem Tartrate 10 MG 1 tablet Orally q HS for 30 days Jun, Active Completed/Discontinued Medications Medication Drug Class(es) Dates Sig (Normalized) Sig (Original) 0.8 ml adalimumab 50 mg/ml auto-injector (16 sources) Tumor Necrosis Factor Erica Start: 11-18-2016 End: 06-06-2023 Adalimumab (Humira Pen) 40 mg/0.8 mL Pen Injector Kit Discontinued 40 MG SUBCUT As Directed November 18, 2016 12:00am June 06, 2023 9:17am azithromycin 250 mg oral tablet (9 sources) Macrolide Antimicrobial Start: 02-15-2024 End: 09-04-2024 Azithromycin 250 mg tablet Discontinued 250 MG PO .COMPLEX 6 5 April 10, 2024 2:08pm September 04, 2024 1:54pm 2 tabs on first day followed by 1 tab on days 2-5 Start: 01-06-2023 Azithromycin 2 50 MG as directed Orally daily for 5 days Dec, Active Start: 05-24-2022 Azithromycin 2 50 MG as directed Orally daily for 5 days May, Active budesonide 3 mg delayed release oral capsule (20 sources) Corticosteroid Start: 10-11-2024 End: 11-05-2024 take 2 capsules by mouth once daily, then take 1 capsule by mouth every twenty-four hours budesonide, enteric coated (ENTOCORT EC) 3 mg 24 hr capsule Indications: Crohn's disease with complication, unspecified gastrointestinal tract location (HCC) Take 2 capsules by mouth once daily Patient should start on October 11, 2024. 180 capsule 1 10/11/2024 11/05/2024 Discontinued Start: 10-11-2024 take 2 capsules by m outh once daily, then take 1 capsule by mouth every twenty-four hours budesonide, enteric coated (ENTOCORT EC) 3 mg 24 hr capsule Indications: Crohn's disease with complication, unspecified gastrointestinal tract location (HCC) Take 2 capsules by mouth once daily Patient should start on October 11, 2024. 180 capsule 1 10/11/2024 Active Start: 10-11-2024 take 2 capsules by m outh once daily, then take 1 capsule by mouth every twenty-four hours budesonide, enteric coated (ENTOCORT EC) 3 mg 24 hr capsule Indications: Crohn's disease with complication, unspecified gastrointestinal tract location (HCC) Take 2 capsules by mouth once daily Patient should start on October 11, 2024. 180 capsule 1 10/11/2024 Active Start: 10-11-2024 take 2 capsules by m outh once daily, then take 1 capsule by mouth every twenty-four hours budesonide, enteric coated (ENTOCORT EC) 3 mg 24 hr capsule Indications: Crohn's disease with complication, unspecified gastrointestinal tract location (HCC) Take 2 capsules by mouth once daily Patient should start on October 11, 2024. 180 capsule 1 10/11/2024 Active Start: 10-11-2024 take 2 capsules by m outh once daily, then take 1 capsule by mouth every twenty-four hours budesonide, enteric coated (ENTOCORT EC) 3 mg 24 hr capsule Indications: Crohn's disease with complication, unspecified gastrointestinal tract location (HCC) Take 2 capsules by mouth once daily Patient should start on October 11, 2024. 180 capsule 1 10/11/2024 Active Start: 09-25-2024 take 2 capsules by m outh once daily budesonide, enteric coated (ENTOCORT EC) 3 mg 24 hr capsule Take 2 capsules by mouth once daily 32 capsule 09/25/2024 Active Start: 09-09-2024 End: 09-25-2024 budesonide, enteric coated ( ENTOCORT EC) 3 mg 24 hr capsule Indications: Crohn's disease with complication, unspecified gastrointestinal tract location (HCC) Currently on 6 mg will try to wean to 3 mg after 2-4 weeks 09/09/2024 09/25/2024 Discontinued Start: 12-18-2023 End: 08-07-2024 take 1 capsule by mouth every twenty-four hours budesonide, enteric coated (ENTOCORT EC) 3 mg 24 hr capsule Take 3 capsules by mouth once daily 270 capsule 1 02/07/2024 08/07/2024 Discontinued Start: 12-12-2023 take 1 capsule by mo uth every twenty-four hours budesonide, enteric coated (ENTOCORT EC) 3 mg 24 hr capsule Take 3 capsules by mouth once daily 270 capsule 1 12/12/2023 Active Start: 07-13-2023 End: 07-25-2023 take 1 capsule by mouth every twenty-four hours budesonide, enteric coated (ENTOCORT EC) 3 mg 24 hr capsule Take 3 capsules by mouth once daily. 90 capsule 1 07/13/2023 07/25/2023 Discontinued (Discontinued by Patient) Start: 04-17-2023 End: 08-07-2024 take 2 capsules by mouth once daily Budesonide 3 mg capsule,delayed,extend.release Active 6 MG PO Daily June 06, 2023 12:00am Complies with drug therapy Start: 12-27-2022 End: 04-09-2023 take 2 capsules by mouth once daily budesonide, enteric coated (ENTOCORT EC) 3 mg 24 hr capsule take 2 capsules by mouth once daily 60 capsule 2 03/15/2023 04/09/2023 Discontinued Start: 12-22-2021 End: 07-13-2023 take 6 mg by mouth once daily in the morning budesonide 6 mg, Oral, qAM, Refills(s) 0 Start Date: 12/22/21 Status: Ordered Start: 12-22-2021 budesonide Ref ills(s) 0 Start Date: 12/22/21 Status: Ordered take 1 capsule by mo uth in the morning, then take 3 mg by mouth every twenty-four hours budesonide EC (Entocort EC) 3 MG 24 hr capsule Take 6 mg by mouth in the morning. Active Comment on above: Take 6 mg by mouth e very morning. Take 2 capsules by m outh once daily. take 2 capsules by m outh once daily Dodex 1000 MCG/ML Injection Solution (2 sources) inject 1 mL by intramuscular injection every month Dodex 1000 MCG/ML Injection Solution INJECT 1 ML INTRAMUSCULARLY ONCE A MONTH Quantity: 0 Refills: 0 Ordered: 08-Feb-2022 DO Active folic acid 1 mg oral tablet (18 sources) Start: 11-19-19 End: 06-06-19 24 take 1 tablet by mouth once daily Folic Acid 1 mg Tablet Discontinued 1 MG PO Daily November 18, 2016 12:00am June 06, 2023 9:17am Folic Acid TABS TAKE 1 TABLET DAILY DIRECTED. Quantity: 0 Refills: 0 Ordered: 11-May-2021 DO Active methotrexate 10 mg oral tablet (20 sources) Folate Analog Metabolic Inhibitor Start: 11-18-2016 End: 06-06-2023 Methotrexate Sodium 10 mg Tablet Discontinued 20 MG PO As Directed November 18, 2016 12:00am June 06, 2023 9:17am Start: 11-18-2016 Methotrexate S odium Active 20 MG PO As Directed November 18, 2016 12:00am End: 02-28-2024 take 8 tablets by mouth every week methotrexate 2.5 MG tablet TAKE 8 TABLETS BY MOUTH ONCE A WEEK ON Wednesdays02/28/2024 Discontinued (Med list cleanup) Methotrexate TAB S TAKE 1 25MG TABLET WEEKLY. Quantity: 0 Refills: 0 Ordered: 11-May-2021 DO Active Multi Vitamin Oral Tablet (2 sources) take 1 tablet by mouth once daily Multi Vitamin Oral Tablet TAKE 1 TABLET DAILY. Quantity: 0 Refills: 0 Ordered: 08-Feb-2022 DO Active risankizumab-rzaa (SKYRIZI) 150 mg/mL injection (4 sources) End: 08-28-2022 risankizumab-rzaa (SKYRIZI) 150 mg/mL injection Inject 150 mg subcutaneously. 0 08/28/2022 Discontinued risankizumab-rza a (SKYRIZI) 150 mg/mL injection Inject 150 mg subcutaneously. 0 Active Comment on above: Inject 150 mg subcut aneously. rosuvastatin calcium 20 mg oral tablet (20 sources) HMG-CoA Reductase Inhibitor Start: 024 End: 025 take 1 tablet by mouth once daily at bedtime rosuvastatin (CRESTOR) 20 mg tablet Indications: Encounter for screening for cardiovascular disorders Take 1 tablet by mouth daily at bedtime. 90 tablet 3 01/26/2024 11/05/2024 Discontinued (Other) Skyrizi (150 MG Dose) 75 MG/0.83ML Subcutaneous Prefilled Syringe Kit (2 sources) Skyrizi (150 MG Dose) 75 MG/0.83ML Subcutaneous Prefilled Syringe Kit Quantity: 0 Refills: 0 Ordered: 08-Feb-2022 DO Active vedolizumab 300 mg in NaCl 0.9% 250 mL (ENTYVIO) (2 sources) Start: 025 End: 025 300 mg, INTRAVENOUS, Administer over 30 Minutes, ONCE, 1 dose, On Mon09/03/24 at 1430, Approx Total Volume: 280 mL EXP:_1430 09/04/24 Refrigerate. After the infusion is complete flush with 30 mL of sterile 0.9% Sodium Chloride Injection. Start: 08-20-2024 End: 08-20-2024 300 mg, INTRAVENOUS, Adminis ter over 30 Minutes, ONCE, 1 dose, On Mon08/20/24 at 1530, Approx Total Volume: 280 mL EXP: 0320 08/21/24 Refrigerate. After the infusion is complete flush with 30 mL of sterile 0.9% Sodium Chloride Injection. {20 (nirmatrelvir 150 MG Oral Tablet) / 10 (ritonavir 100 MG Oral Tablet) } Pack [Paxlovid 5-Day] (11 sources) Start: 04-16-2022 take 3 tablets by mouth every twelve hours Paxlovid (300/100) 20 x 150 MG & 10 x 100MG 3 tablets Orally Twice a day for 5 day(s) please review with his chronic meds. thanks. Apr, Not-Taking Start: 04-16-2022 take 3 tablets by mo uth every twelve hours Paxlovid (300/100) 20 x 150 MG & 10 x 100MG 3 tablets Orally Twice a day for 5 day(s) please review with his chronic meds. thanks. Apr, Active Problems Active Problems Problem Classification Problem Date Documented Da te Episodic/Chronic Acute bronchitis (6 sources) Acute bronchitis due to other specified organisms; Translations: [Acute bronchitis] Onset: 5 Episodic Anxiety disorders (2 sources) Anxiety disorder; Translations: [Anxiety disorder, unspecified] Chronic Aortic; peripheral; and visceral artery aneurysms (12 sources) False aneurysm of artery; Translations: [Aneurysm of other specified arteries] Chronic Cardiac and circulatory congenital anomalies (6 sources) Right ventricular abnormality; Translations: [Other specified congenital anomalies of heart] Chronic Cardiac arrest and ventricular fibrillation (7 sources) Cardiac arrest; Translations: [Cardiac arrest] Chronic Cardiac dysrhythmias (4 sources) Ventricular arrhythmia; Translations: [Cardiac arrhythmia, unspecified] 10-12-2022 Chronic Cardiac dysrhythmias (2 sources) Palpitations; Translations: [Palpitations] Onset: 8 07-31-2023 Episodic Chronic ulcer of skin (2 sources) Superficial ulcer of skin; Translations: [Non-pressure chronic ulcer of skin of other sites limited to breakdown of skin] 09-04-2024 Chronic Coagulation and hemorrhagic disorders (20 sources) Thrombocytopenic disorder; Translations: [Thrombocytopenia, unspecified] Onset: 3 06-25-2022 Chronic Conditions associated with dizziness or vertigo (1 source) Dizziness; Translations: [Dizziness and giddiness] 11-16-2023 Episodic Conduction disorders (20 sources) Automatic implantable cardiac defibrillator in situ; Translations: [Automatic implantable cardiac defibrillator in situ] Onset: 2 Resolved: 4 06-25-2022 Chronic Congestive heart failure; nonhypertensive (20 sources) Chronic systolic heart failure; Translations: [Chronic systolic (congestive) heart failure] Onset: 4 04-06-2023 Chronic Coronary atherosclerosis and other heart disease (3 sources) Calcification of coronary artery; Translations: [Atherosclerotic heart disease of [place] coronary artery without angina pectoris] Onset: 5 06-27-2024 Chronic Deficiency and other anemia (1 source) Anemia due to chronic blood loss; Translations: [Iron deficiency anemia secondary to blood loss (chronic)] Onset: 3 Chronic Deficiency and other anemia (3 sources) Anemia; Translations: [Anemia, unspecified] Onset: 3 Episodic Diabetes mellitus without complication (1 source) Type 2 diabetes mellitus without complication; Translations: [Diabetes mellitus without mention of complication, type II or unspecified type, not stated as uncontrolled] Chronic Diseases of white blood cells (20 sources) Leukocytosis; Translations: [Elevated white blood cell count, unspecified] Onset: 3 06-25-2022 Chronic Disorders of lipid metabolism (2 sources) Hyperlipidemia; Translations: [Hyperlipidemia, unspecified] Onset: 5 10-17-2023 Chronic Esophageal disorders (20 sources) Gastro-esophageal reflux disease with esophagitis; Translations: [GERD with esophagitis] Onset: 3 06-25-2022 Chronic Essential hypertension (20 sources) Benign essential hypertension; Translations: [Benign essential hypertension] Onset: 3 Chronic Gastroduodenal ulcer (except hemorrhage) (1 source) Acute gastric ulcer without hemorrhage or perforation Episodic Immunity disorders (10 sources) Immunodeficiency disorder; Translations: [Immunodeficiency, unspecified] Chronic Lymphadenitis (1 source) Lymphadenopathy; Translations: [Generalized enlarged lymph nodes] 02-15-2024 Episodic Malaise and fatigue (2 sources) Asthenia; Translations: [Weakness] Onset: 3 Episodic Miscellaneous mental health disorders (1 source) Primary insomnia; Translations: [Primary insomnia] 11-16-2023 Chronic Miscellaneous mental health disorders (1 source) Adjustment insomnia Episodic Mood disorders (2 sources) Moderate major depression, single episode; Translations: [Major depressive disorder, single episode, moderate] Onset: 6 Chronic Neoplasms of unspecified nature or uncertain behavior (5 sources) Neoplasm of uncertain behavior of skin; Translations: [Neoplasm of uncertain behavior of skin] 04-11-2024 Episodic Other aftercare (2 sources) Long-term current use of drug therapy; Translations: [Other fci (current) drug therapy] Onset: 3 Episodic Other aftercare (2 sources) senior living systemic steroid user; Translations: [senior living (current) use of systemic steroids] Onset: 3 Episodic Other aftercare (1 source) Other parts counterman (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) drug therapy; Translations: [OTH LODGING F[employer]ITIES MANAGER CURRENT DRUG THERAPY] Onset: 3 Episodic Other and unspecified benign neoplasm (4 sources) Melanocytic nevus of trunk; Translations: [Melanocytic nevi of trunk] 12-25-2023 Episodic Other circulatory disease (1 source) H/O: cardiovascular disease; Translations: [Personal history of other diseases of the circulatory system] Episodic Other congenital anomalies (1 source) Congenital spondylolysis of lumbosacral region; Translations: [Congenital spondylolysis, lumbosacral region] Onset: 7 Chronic Other ear and sense organ disorders (1 source) Infective otitis externa; Translations: [Unspecified infective otitis externa] Onset: 7 Chronic Other ear and sense organ disorders (20 sources) Sensorineural hearing loss, bilateral; Translations: [Sensorineural hearing loss, bilateral] Onset: 4 04-06-2023 Chronic Other ear and sense organ disorders (2 sources) Impacted cerumen; Translations: [Impacted cerumen] Onset: 9 Episodic Other ear and sense organ disorders (1 source) Diffuse otitis externa, left ear Episodic Other gastrointestinal disorders (1 source) Diarrhea; Translations: [Diarrhea, unspecified] 08-07-2024 Episodic Other gastrointestinal disorders (1 source) Diarrhea, unspecified; Translations: [Diarrhea, unspecified type] Onset: 5 Episodic Other inflammatory condition of skin (1 source) Seborrheic dermatitis; Translations: [Seborrheic dermatitis, unspecified] Episodic Other lower respiratory disease (1 source) Dyspnea; Translations: [Dyspnea, unspecified] Onset: 3 Episodic Other lower respiratory disease (4 sources) Nodule of lung; Translations: [Solitary pulmonary nodule] 07-11-2024 Episodic Other lower respiratory disease (3 sources) Multiple nodules of lung; Translations: [Other nonspecific abnormal finding of lung field] 07-19-2024 Episodic Other lower respiratory disease (1 source) Other nonspecific abnormal finding of lung field; Translations: [Lung nodules] Onset: 5 Episodic Other nervous system disorders (20 sources) Plantar nerve lesion; Translations: [Lesion of plantar nerve, left lower limb] Onset: 7 04-06-2023 Chronic Other nervous system disorders (20 sources) Neuroma of foot; Translations: [Lesion of plantar nerve, bilateral lower limbs] Onset: 4 04-06-2023 Chronic Other non-epithelial cancer of skin (2 sources) History of malignant neoplasm of skin; Translations: [Personal history of other malignant neoplasm of skin] 12-25-2023 Episodic Other nutritional; endocrine; and metabolic disorders (1 source) Hypomagnesemia; Translations: [Hypomagnesemia] Chronic Other nutritional; endocrine; and metabolic disorders (2 sources) Body mass index 25-29 - overweight; Translations: [Body Mass Index 26.0-26.9, adult] Episodic Other nutritional; endocrine; and metabolic disorders (6 sources) Overweight in adulthood with body mass index of 25 or more but less than 30; Translations: [Overweight] Episodic Other screening for suspected conditions (not mental disorders or infectious disease) (18 sources) Low serum potassium level - finding; Translations: [Patient encounter status] Onset: 4 12-03-2021 Episodic Other skin disorders (4 sources) Actinic keratosis; Translations: [Actinic keratosis] Episodic Other skin disorders (2 sources) Other seborrheic keratosis; Translations: [Seborrheic keratosis] Onset: 7 Episodic Other skin disorders (1 source) Hypertrophic condition of skin; Translations: [Other hypertrophic disorders of the skin] Episodic Other skin disorders (1 source) Sebaceous cyst; Translations: [Sebaceous cyst] Episodic Other skin disorders (11 sources) Inflamed seborrheic keratosis; Translations: [Inflamed seborrheic keratosis] 02-01-2024 Episodic Other skin disorders (2 sources) Other hypertrophic disorders of the skin Episodic Other skin disorders (4 sources) Seborrheic keratosis; Translations: [Other seborrheic keratosis] 12-25-2023 Episodic Other skin disorders (4 sources) Lentiginosis; Translations: [Other melanin hyperpigmentation] 12-25-2023 Episodic Other skin disorders (6 sources) Sebaceous gland hypertrophy; Translations: [Other specified follicular disorders] 02-01-2024 Episodic Other skin disorders (4 sources) Acne vulgaris; Translations: [Acne vulgaris] 02-28-2024 Episodic Other skin disorders (1 source) Skin tag; Translations: [Other hypertrophic disorders of the skin] 06-06-2023 Episodic Other skin disorders (1 source) Actinic keratosis; Translations: [Actinic keratosis] 06-06-2023 Episodic Other upper respiratory infections (1 source) Chronic sinusitis, unspecified; Translations: [CHRONIC SINUSITIS UNSPECIFIED] Onset: 3 Chronic Other upper respiratory infections (12 sources) Acute maxillary sinusitis, unspecified; Translations: [Acute upper respiratory infection, unspecified] Onset: 5 Episodic Otitis media and related conditions (1 source) Chronic eustachian tube salpingitis; Translations: [Chronic Eustachian salpingitis, unspecified ear] 03-07-2024 Chronic Judi-; endo-; and myocarditis; cardiomyopathy (except that caused by tuberculosis or sexually transmitted disease) (20 sources) Cardiomyopathy associated with another disorder; Translations: [Other cardiomyopathies] 10-12-2022 Chronic Comment on above: Echo: LVEF 55%, RVSP 30 - 07/2023,Echo: LVEF 55%, RV dilated, normal function, RVSP 30, Ao 4.1cm - 07/2024, Peritonitis and intestinal abscess (1 source) Infectious disease of abdomen; Translations: [Peritonitis, unspecified] 2023 Episodic Regional enteritis and ulcerative colitis (20 sources) Crohn's disease; Translations: [Regional enteritis of unspecified site] Onset: 4 Resolved: 4 Chronic Residual codes; unclassified (6 sources) Acquired absence of organ; Translations: [Acquired absence of other specified parts of digestive tract] Onset: 2 Episodic Residual codes; unclassified (4 sources) Patient encounter status; Translations: [Encounter for procedure for purposes other than remedying health state, unspecified] 12-25-2023 Episodic Residual codes; unclassified (2 sources) At risk for infection; Translations: [Other specified personal risk factors, not elsewhere classified] 03-07-2024 Episodic Spondylosis; intervertebral disc disorders; other back problems (1 source) Lumbosacral spondylosis without myelopathy; Translations: [Spondylosis without myelopathy or radiculopathy, lumbar region] Chronic Sprains and strains (3 sources) Strain of unspecified muscle(s) and tendon(s) at lower leg level, right leg, initial encounter; Translations: [Sprain of wrist] Episodic Substance-related disorders (20 sources) Psychoactive substance dependence; Translations: [Other psychoactive substance dependence, uncomplicated] Onset: 2 Chronic Unclassified (5 sources) History of excision of small intestine 10-06-2021 Unclassified (1 source) Encounter for adjustment and management of automatic implantable cardiac defibrillator; Translations: [Encounter for adjustment and management of automatic implantable cardiac defibrillator] Onset: 3 Unclassified (4 sources) CONTACT W/AND (SUSP) EXPOS COVID-19; Translations: [CONTACT W/AND (SUSP) EXPOS COVID-19] Onset: 2 Unclassified (1 source) Long-term current use of drug therapy; Translations: [Long-term (current) use of other medications] Onset: 6 Unclassified (1 source) Personal history of immunosuppression therapy; Translations: [Personal history of immunosuppression therapy] Onset: 6 Unclassified (1 source) Exposure to acute respiratory syndrome coronavirus 2; Translations: [Contact with and (suspected) exposure to COVID-19] Unclassified (1 source) APPOINTMENT CANCELLED 08-08-2023 Viral infection (2 sources) COVID-19; Translations: [Disease caused by 2019-nCoV] Past or Other Problems Problem Classification Problem Date Documented Da te Episodic/Chronic Acute posthemorrhagic anemia (20 sources) Acute posthemorrhagic anemia; Translations: [Acute posthemorrhagic anemia] Onset: 3 Episodic Allergic reactions (1 source) Contact dermatitis; Translations: [Unspecified contact dermatitis, unspecified cause] Onset: 5 Episodic Bacterial infection; unspecified site (1 source) Bacterial infectious disease; Translations: [Bacterial infection, unspecified, in conditions classified elsewhere and of unspecified site] Onset: 7 Episodic Diabetes mellitus without complication (1 source) Hyperglycemia; Translations: [Hyperglycemia, unspecified] Onset: 5 Episodic Diseases of mouth; excluding dental (1 source) Recurrent aphthous stomatitis; Translations: [Recurrent oral aphthae] Onset: 9 Episodic Fluid and electrolyte disorders (20 sources) Hypokalemia; Translations: [Hypokalemia] Onset: 2 Resolved: 4 Episodic Gastrointestinal hemorrhage (20 sources) Gastrointestinal hemorrhage; Translations: [Gastrointestinal hemorrhage, unspecified] Onset: 3 Resolved: 4 Episodic Genitourinary symptoms and ill-defined conditions (3 sources) Dysuria; Translations: [Dysuria] Onset: 7 Episodic Inflammatory conditions of male genital organs (1 source) Acute prostatitis; Translations: [Acute prostatitis] Onset: 7 Episodic Mycoses (20 sources) Candidal esophagitis; Translations: [Candidiasis of the esophagus] Onset: 3 Episodic Other ear and sense organ disorders (1 source) Otitis externa of bilateral ears; Translations: [Swimmer's ear, bilateral] Resolved: 1 Episodic Other ear and sense organ disorders (20 sources) Acute otitis externa; Translations: [Unspecified acute noninfective otitis externa, unspecified ear] Onset: 4 Resolved: 4 04-06-2023 Episodic Other gastrointestinal disorders (20 sources) Pneumatosis cystoides intestinalis; Translations: [Other specified diseases of intestine] Onset: 3 06-22-2022 Episodic Other gastrointestinal disorders (20 sources) Pneumoperitoneum; Translations: [Other specified disorders of peritoneum] Onset: 3 Resolved: 4 06-25-2022 Episodic Other infections; including parasitic (1 source) Infestation by Sarcoptes scabiei elda hominis; Translations: [Scabies] Onset: 5 Episodic Other lower respiratory disease (1 source) Solitary pulmonary nodule; Translations: [Lung nodule] Onset: 5 Episodic Other nervous system disorders (20 sources) Impairment of balance; Translations: [Other abnormalities of gait and mobility] Onset: 4 11-16-2023 Episodic Other non-traumatic joint disorders (20 sources) Pain in right knee; Translations: [Pain in joint, lower leg] Onset: 4 04-06-2023 Episodic Other non-traumatic joint disorders (20 sources) Pain in left knee; Translations: [Pain in joint, lower leg] Onset: 4 Resolved: 4 04-06-2023 Episodic Otitis media and related conditions (20 sources) Eustachian tube salpingitis; Translations: [Unspecified Eustachian salpingitis, left ear] Onset: 8 04-06-2023 Episodic Residual codes; unclassified (20 sources) History of partial resection of colon; Translations: [Acquired absence of other specified parts of digestive tract] Onset: 4 Resolved: 4 10-06-2021 Episodic Residual codes; unclassified (1 source) Sleep disorder; Translations: [Persistent disorder of initiating or maintaining sleep] Onset: 8 Episodic Residual codes; unclassified (20 sources) History of excision of small intestine; Translations: [Acquired absence of other specified parts of digestive tract] Onset: 4 Resolved: 4 04-06-2023 Episodic Respiratory failure; insufficiency; arrest (adult) (20 sources) Acute respiratory failure; Translations: [Acute respiratory failure with hypoxia] Onset: 3 Resolved: 4 06-25-2022 Episodic Shock (20 sources) Hypovolemic shock; Translations: [Hypovolemic shock] Onset: 3 06-22-2022 Episodic Skin and subcutaneous tissue infections (1 source) Cellulitis of right lower limb; Translations: [Cellulitis of right lower limb] Resolved: 2 Episodic Spondylosis; intervertebral disc disorders; other back problems (20 sources) Low back pain; Translations: [Low back pain] Onset: 3 04-06-2023 Episodic Syncope (20 sources) Syncope; Translations: [Syncope and collapse] Onset: 3 06-22-2022 Episodic Unclassified (4 sources) Never smoked tobacco; Translations: [Never a smoker] Unclassified (1 source) CONTACT W/AND (SUSP) EXPOS COVID-19; Translations: [CONTACT W/AND (SUSP) EXPOS COVID-19] Onset: 2 Unclassified (2 sources) Patient encounter status 11-06-2024 Viral infection (20 sources) Verruca vulgaris; Translations: [Other viral warts] Onset: 4 Episodic Results Test Name Value Interpretation Reference Range Facility No Panel Informationon 11-14 [facility] CNOVon 11-05-2024 CNOV Office Visit (UROLMN ) -------- JOSÉ MIGUEL CARRENO ([id number]) 1960 [facility] Date Time Provider Department 11/05/24 9:30 AM SAIGE LION During your visit today, we recorded the following information about you: Saige Lion APRN.[facility] 11/05/2024 10:32 AM Signed [facility] NEW PATIENT HISTORY AND PHYSICAL EXAM PATIENT INFO: José Miguel Carreno JR 64 year old REFERRING M.D.: self PCP: [facility] Consultation requested by self for an opinion regarding prostate cancer screening and my final recommendations will be communicated back to the requesting physician by way of shared medical record or letter via US mail. HPI 64 year old male w/h/o HTN, defib, Chrons referred for evaluation of prostate cancer screening. 08/2021 PSA 2.7 08/2020 PSA 2.8 FH- no known FH of prostate cancer. He has pelvic floor dysfunction, urinary symptoms coincide with flare up of Chrons- weak stream. Overall not very bothersome. Denies gross hematuria, dysuria, or UTIs. PATHOLOGY: N/a LAB: Creatinine Date Value Ref Range Status 10/17/2024 1.13 0.73 - 1.22 mg/dL Final No results found for: PSA Color (no units) Date Value 06/21/2022 Light Yellow Clarity (no units) Date Value 06/21/2022 Clear Glucose, Urine (no units) Date Value 06/21/2022 Negative Bilirubin, Urine (no units) Date Value 06/21/2022 Negative Ketones, Urine (no units) Date Value 06/21/2022 Negative Specific [place], Ur (no units) Date Value 06/21/2022 1.010 Hemoglobin/Blood,Ur (no units) Date Value 06/21/2022 Negative pH, Urine (no units) Date Value 06/21/2022 6.0 Protein, Urine (no units) Date Value 06/21/2022 Trace Urobilinogen (no units) Date Value 06/21/2022 Negative Nitrites (no units) Date Value 06/21/2022 Negative Leuk Esterase (no units) Date Value 06/21/2022 Negative IMAGING: N/a ALLERGIES: ALLERGIES Allergen Reactions Imuran [Azathioprin* Other: See Comments Joint stiffness Tylenol [Acetaminop* Other: See Comments Fever and clammy MEDICATIONS: vedolizumab (ENTYVIO PEN) 108 mg/0.68 mL pen Inject 0.68 mL subcutaneously every other week. budesonide, enteric coated (ENTOCORT EC) 3 mg 24 hr capsule Take 2 capsules by mouth once daily vedolizumab (ENTYVIO PEN) 108 mg/0.68 mL pen Inject 108mg (1 pen) subcutaneously every other week. vedolizumab (ENTYVIO PEN) 108 mg/0.68 mL pen Inject 108mg (1 pen) subcutaneously every other week. cyanocobalamin 1,000 mcg/mL Inject 1 mL every 4 weeks then once per month following potassium chloride 20 mEq TbER Take 4 tablets by mouth once daily. COPPER ORAL Take by mouth. risankizumab-rzaa (SKYRIZI) 360 mg/2.4 mL (150 mg/mL) wearable injector Inject 360 mg/2.4 mL subcutaneously once every 4 weeks metoprolol succinate ER (TOPROL XL) 25 mg 24 hr tablet Take 1 tablet by mouth two times a day. lisinopril (ZESTRIL) 20 mg tablet Take 10 mg by mouth once daily. Cholecalciferol, Vitamin D3, 25 mcg (1,000 unit) cap Take by mouth q 24 HR. ferrous bis-glycinate chelate (IRON BISGLYCINATE CHELATE) 29 mg iron cap Take 1 capsule by mouth once daily. HISTORIES PAST MEDICAL HISTORY Diagnosis Date Anemia Cardiac arrest (HCC) Congestive heart failure (HCC) Crohn disease (HCC) Crohn's disease (HCC) Dyslipidemia GERD (gastroesophageal reflux disease) GI bleed Hypertension Right ventricular dysplasia (HCC) Syncope Thrombocytopenia FAMILY HISTORY Problem Relation Age of Onset Breast Cancer Mother bone Heart Attack Father Hypertension Father Coronary Artery Disease Father s/p CABG Hypertension Brother PAST SURGICAL HISTORY Procedure Laterality Date BACK SURGERY HX L5 BOWEL RESECTION HX 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 SINUS SURGERY HX SOCIAL HISTORY SOCIAL HISTORY[1] REVIEW OF SYSTEMS General: No weight loss, malaise or fevers. Gastrointestinal: No nausea, vomiting, or diarrhea Genitourinary: See HPI The remainder of the ROS was reviewed and was negative. PHYSICAL EXAMINATION There were no vitals taken for this visit. Constitutional: Well appearing, alert, in no acute distress, and well-hydrated, well nourished Gastrointestinal: non-distended Genitourinary: MALE EXAM: deferred for PSA today ASSESSMENT AND PLAN: Prostate cancer screening Due for PSA screening today. No known FH of prostate cancer. Denies bothersome LUTs. Exam deferred today as patient will get a PSA today. If PSA elevated, will pursue MRI. If PSA within normal range, recommend annual PSA screening. Follow up pending above. Saige Lion APRN.[facility] [1] Social History Tobacco Use Smoking status: Never Passive exposure: Never Smokeless tobacco: Never Vaping Use Vaping status: Never Used Substance Use Topics Alcohol use: Not Currently Drug use: Never Saige Lion APRN.CLIENT MANAGER 11/05/2024 9:58 AM Si (more content not included)... Normal [facility] - Hematology and Cell countson 11-05-2024 Hemoglobin Ql (U) Negative Negative [facility] - Urinalysison Protein Ql (U) Negative Negative mg/dL [facility] No Panel Informationon 11-05 BILIRUBIN UA (POCT) Negative Negative [facility] CLARITY UA (POCT) Clear [facility] COLOR UA (POCT) Yellow [facility] GLUCOSE UA (POCT) Negative Negative mg/dL [facility] KETONE UA (POCT) Negative Negative mg/dL [facility] LEUKOCYTES UA (POCT) Negative Negative [facility] NITRITE UA (POCT) Negative Negative [facility] PH UA (POCT) 5.5 4.5 - 8.0 [facility] SPECIFIC GRAVITY UA (POCT) 1.025 1.005 - 1.030 [facility] UROBILINOGEN UA (POCT) 0.2 Americo l E.U./dL [facility] Location:[facility] [place], [address] [place] [address], [address] [place] [address] POINT OF CARE [facility] PSA/PROSTATE SPECIFIC ANTIGE N SCREENINGon 11-05-2024 Interpretation and review of laboratory results Abnormal [facility] Prostate specific Ag [Mass/Vol] 3.53 ng/mL High NINF - 2.60 ng/mL [facility] Comment on above: Total PSA test metho dology used is the Electrochemiluminescence Immunoassay by [employer]. Total PSA values by differing methodologies cannot [...] Vaughn M.D., M.P.H., Alvino George M.D., Ph.D., Eloise Macdonald M.D., Richard Rollins, M.P.H., Lily Padron, ScMelanie. Effect of Verification Bias on Screening for Prostate Cancer by Measurement of Prostatic Specific Antigen. N Engl J Med 2003,349:335-42. [facility] Prostate specific Ag [Mass/Vol] 3.53 ng/mL High <2.60 [facility] Comment on above: Order Comment: Speci men Type: BLOOD SPECIMENOrdering Facility: [facility] Address: [address] [place] [address] Result Comment: Tota l PSA test methodology used is the Electrochemiluminescence [...] Vaughn M.D., M.P.H., Alvino George M.D., Ph.D., Eloise Macdonald M.D., Richard Rollins, M.P.H., Lily Padron ScMelanie. Effect of Verification Bias on Screening for Prostate Cancer by Measurement of Prostatic Specific Antigen. N Engl J Med 2003,349:335-42. Performed By: #### P SAS1 ####[facility] LABCLIA [id number] [place] [address] [place] CBC W Auto Differential pane l (Bld)on 10-17-2024 Basophils (Bld) [#/Vol] 0.08 10*3/uL Normal <0.11 [facility] Comment on above: Order Comment: Speci men Type: BLOOD SPECIMENOrdering Facility: [facility] Address: [address] [place] [address] Performed By: #### 5 7021-8 ####[facility] LABCLIA [id number] [place] [address] Basophils/100 WBC (Bld) 0.8 % Normal [facility] Comment on above: Order Comment: Speci men Type: BLOOD SPECIMENOrdering Facility: [facility] Address: [address] [place] [address] Performed By: #### 5 7021-8 ####[facility] LABCLIA [id number] [place] [address] Differential cell count method Nom (Bld) Auto Normal [facility] Comment on above: Order Comment: Speci men Type: BLOOD SPECIMENOrdering Facility: [facility] Address: [address] [place], [place] [address] Performed By: #### 5 7021-8 ####[facility] LABCLIA [id number] [place] [address] Eosinophils (Bld) [#/Vol] 0.34 10*3/uL Normal <0.46 [facility] Comment on above: Order Comment: Speci men Type: BLOOD SPECIMENOrdering Facility: [facility] Address: [address] [place] [address] Performed By: #### 5 7021-8 ####[facility] LABCLIA [id number] [place] [address] Eosinophils/100 WBC (Bld) 3.5 % Normal [facility] Comment on above: Order Comment: Speci men Type: BLOOD SPECIMENOrdering Facility: [facility] Address: [address] [place] [address] Performed By: #### 5 7021-8 ####[facility] LABCLIA [id number] [place] [address] Erythrocyte distribution width (RBC) [Ratio] 13.6 % Normal 11.5-15.0 [facility] Comment on above: Order Comment: Speci men Type: BLOOD SPECIMENOrdering Facility: [facility] Address: [address] [place] [address] Performed By: #### 5 7021-8 ####[facility] LABCLIA [id number] [place] [address] Hematocrit (Bld) [Volume fraction] 39.8 % Normal 39.0-51.0 [facility] Comment on above: Order Comment: Speci men Type: BLOOD SPECIMENOrdering Facility: [facility] Address: [address] [place] [address] Performed By: #### 5 7021-8 ####[facility] LABCLIA [id number] [place] [address] Hemoglobin (Bld) [Mass/Vol] 13.5 g/dL Normal 13.0-17.0 [facility] Comment on above: Order Comment: Speci men Type: BLOOD SPECIMENOrdering Facility: [facility] Address: [address] [place] [address] Performed By: #### 5 7021-8 ####[facility] LABCLIA [id number] [place] [address] Immature granulocytes (Bld) [#/Vol] 0.11 10*3/uL High <0.10 [facility] Comment on above: Order Comment: Speci men Type: BLOOD SPECIMENOrdering Facility: [facility] Address: [address] [place] [address] Performed By: #### 5 7021-8 ####[facility] LABCLIA [id number] [place] [address] Immature granulocytes/100 WBC (Bld) 1.1 % Normal [facility] Comment on above: Order Comment: Speci men Type: BLOOD SPECIMENOrdering Facility: [facility] Address: [address] [place] [address] Performed By: #### 5 7021-8 ####[facility] LABCLIA [id number] [place] [address] Lymphocytes (Bld) [#/Vol] 2.05 10*3/uL Normal 1.00-4.00 [facility] Comment on above: Order Comment: Speci men Type: BLOOD SPECIMENOrdering Facility: [facility] Address: [address] [place] [address] Performed By: #### 5 7021-8 ####[facility] LABCLIA [id number] [place] [address] Lymphocytes/100 WBC (Bld) 21.4 % Normal [facility] Comment on above: Order Comment: Speci men Type: BLOOD SPECIMENOrdering Facility: [facility] Address: [address] [place] [address] Performed By: #### 5 7021-8 ####[facility] LABCLIA [id number] [place] [address] MCH (RBC) [Entitic mass] 29.6 pg Normal 26.0-34.0 [facility] Comment on above: Order Comment: Speci men Type: BLOOD SPECIMENOrdering Facility: [facility] Address: [address] [place] [address] Performed By: #### 5 7021-8 ####[facility] LABCLIA [id number] [place] [address] MCHC (RBC) [Mass/Vol] 33.9 g/dL Normal 30.5-36.0 [facility] Comment on above: Order Comment: Speci men Type: BLOOD SPECIMENOrdering Facility: [facility] Address: [address] [place] [address] Performed By: #### 5 7021-8 ####[facility] LABCLIA [id number] [place] [address] MCV (RBC) [Entitic vol] 87.3 fL Normal 80.0-100.0 [facility] Comment on above: Order Comment: Speci men Type: BLOOD SPECIMENOrdering Facility: [facility] Address: [address] [place] [address] Performed By: #### 5 7021-8 ####[facility] LABCLIA [id number] [place] [address] Monocytes (Bld) [#/Vol] 0.98 10*3/uL High <0.87 [facility] Comment on above: Order Comment: Speci men Type: BLOOD SPECIMENOrdering Facility: [facility] Address: [address] [place] [address] Performed By: #### 5 7021-8 ####[facility] LABCLIA [id number] [place] [address] Monocytes/100 WBC (Bld) 10.2 % Normal [facility] Comment on above: Order Comment: Speci men Type: BLOOD SPECIMENOrdering Facility: [facility] Address: [address] [place] [address] Performed By: #### 5 7021-8 ####[facility] LABCLIA [id number] [place] [address] Neutrophils (Bld) [#/Vol] 6.03 10*3/uL Normal 1.45-7.50 [facility] Comment on above: Order Comment: Speci men Type: BLOOD SPECIMENOrdering Facility: [facility] Address: [address] [place] [address] Performed By: #### 5 7021-8 ####[facility] LABCLIA [id number] [place] [address] Neutrophils/100 WBC (Bld) 63.0 % Normal [facility] Comment on above: Order Comment: Speci men Type: BLOOD SPECIMENOrdering Facility: [facility] Address: [address] [place] [address] Performed By: #### 5 7021-8 ####[facility] LABCLIA [id number] [place] [address] Nucleated RBC (Bld) [#/Vol] 10*3/uL Normal <0.01 [facility] Comment on above: Order Comment: Speci men Type: BLOOD SPECIMENOrdering Facility: [facility] Address: [address] [place] [address] Performed By: #### 5 7021-8 ####[facility] LABIA [id number] [place] [address] Nucleated RBC/100 WBC (Bld) [Ratio] 0.0 /100 WBC Normal [facility] Comment on above: Order Comment: Speci men Type: BLOOD SPECIMENOrdering Facility: [facility] Address: [address] [place] [address] Performed By: #### 5 7021-8 ####[facility] LABCLIA [id number] [place] [address] Platelet mean volume (Bld) [Entitic vol] 9.3 fL Normal 9.0-12.7 [facility] Comment on above: Order Comment: Speci men Type: BLOOD SPECIMENOrdering Facility: [facility] Address: [address] [place] [address] Performed By: #### 5 7021-8 ####[facility] LABCLIA [id number] [place] [address] Platelets (Bld) [#/Vol] 211 10*3/uL Normal 150-400 [facility] Comment on above: Order Comment: Speci men Type: BLOOD SPECIMENOrdering Facility: [facility] Address: [address] [place] [address] Performed By: #### 5 7021-8 ####[facility] LABCLIA [id number] [place] [address] RBC (Bld) [#/Vol] 4.56 10*6/uL Normal 4.20-6.00 [facility] Comment on above: Order Comment: Speci men Type: BLOOD SPECIMENOrdering Facility: [facility] Address: [address] [place] [address] Performed By: #### 5 7021-8 ####[facility] LABCLIA [id number] [place] [address] WBC (Bld) [#/Vol] 9.59 10*3/uL Normal 3.70-11.00 [facility] Comment on above: Order Comment: Speci men Type: BLOOD SPECIMENOrdering Facility: [facility] Address: [address] [place] [address] Performed By: #### 5 7021-8 ####[facility] LABCLIA [id number] [place] [address] Comprehensive metabolic 2000 panelon 10-17-2024 Albumin [Mass/Vol] 4.0 g/dL Normal 3.9-4.9 [facility] Comment on above: Order Comment: Speci men Type: BLOOD SPECIMENOrdering Facility: [facility] Address: [address] [place] [address] Performed By: #### 2 4323-8 ####[facility] LABCLIA [id number] [place] [address] ALP [Catalytic activity/Vol] 94 U/L Normal 38-113 [facility] Comment on above: Order Comment: Speci men Type: BLOOD SPECIMENOrdering Facility: [facility] Address: [address] [place] [address] Performed By: #### 2 4323-8 ####[facility] LABCLIA [id number] [place] [address] ALT [Catalytic activity/Vol] 19 U/L Normal 10-54 [facility] Comment on above: Order Comment: Speci men Type: BLOOD SPECIMENOrdering Facility: [facility] Address: [address] [place] [address] Performed By: #### 2 4323-8 ####[facility] LABCLIA [id number] [place] [address] Anion gap [Moles/Vol] 10 mmol/L Normal 8-15 [facility] Comment on above: Order Comment: Speci men Type: BLOOD SPECIMENOrdering Facility: [facility] Address: [address] [place] [address] Performed By: #### 2 4323-8 ####[facility] LABCLIA [id number] [place] [address] AST [Catalytic activity/Vol] 18 U/L Normal 14-40 [facility] Comment on above: Order Comment: Speci men Type: BLOOD SPECIMENOrdering Facility: [facility] Address: [address] [place] [address] Performed By: #### 2 4323-8 ####[facility] LABCLIA [id number] [place] [address] Bilirubin [Mass/Vol] 0.4 mg/dL Normal 0.2-1.3 [facility] Comment on above: Order Comment: Speci men Type: BLOOD SPECIMENOrdering Facility: [facility] Address: [address] [place] [address] Performed By: #### 2 4323-8 ####[facility] LABCLIA [id number] [place] [address] Calcium [Mass/Vol] 9.3 mg/dL Normal 8.5-10.2 [facility] Comment on above: Order Comment: Speci men Type: BLOOD SPECIMENOrdering Facility: [facility] Address: [address] [place] [address] Performed By: #### 2 4323-8 ####[facility] LABCLIA [id number] [place] [address] Chloride [Moles/Vol] 110 mmol/L High 98-107 [facility] Comment on above: Order Comment: Speci men Type: BLOOD SPECIMENOrdering Facility: [facility] Address: [address] [place] [address] Performed By: #### 2 4323-8 ####[facility] LABCLIA [id number] [place] [address] CO2 [Moles/Vol] 20 mmol/L Low 22-30 [facility] Comment on above: Order Comment: Speci men Type: BLOOD SPECIMENOrdering Facility: [facility] Address: [address] [place] [address] Performed By: #### 2 4323-8 ####[facility] LABCLIA [id number] [place] [address] Creatinine [Mass/Vol] 1.13 mg/dL Normal 0.73-1.22 [facility] Comment on above: Order Comment: Speci men Type: BLOOD SPECIMENOrdering Facility: [facility] Address: [address] [place], [place] [address] Performed By: #### 2 4323-8 ####[facility] LABCLIA [id number] [place] [address] eGFRcr SerPlBld CKD-EPI 2020 73 mL/min/1.73m??? Normal >=60 [facility] Comment on above: Order Comment: Kerlinesimon kern Type: BLOOD SPECIMENOrdering Facility: [facility] Address: [address] [place] [address] Result Comment: Sabrina mated Glomerular Filtration Rate (eGFR) is calculated using the 2020 CKD-EPI creatinine equation. This equation utilizes serum creatinine, sex, and age as parameters. The creatinine assay has traceable calibration to isotope dilution-mass spectrometry. Refer to KDIGO guidelines for clinical interpretation. In patients with unstable renal function, e.g. those with acute kidney injury, the eGFR may not accurately reflect actual GFR. Performed By: #### 2 4323-8 ####[facility] LABCLIA [id number] [place] [address] Glucose [Mass/Vol] 96 mg/dL Normal 74-99 [facility] Comment on above: Order Comment: Brittany kern Type: BLOOD SPECIMENOrdering Facility: [facility] Address: [address] [place] [address] Result Comment: The [place] Diabetes Association (ADA) provides guidance for cutoff [...] Standards of Medical Care in Diabetes 2016, [place] Diabetes Association. Diabetes Care. 2016.39(Suppl 1). Performed By: #### 2 4323-8 ####[facility] LABCLIA [id number] [place] [address] Potassium [Moles/Vol] 4.2 mmol/L Normal 3.7-5.1 [facility] Comment on above: Order Comment: Speci men Type: BLOOD SPECIMENOrdering Facility: [facility] Address: [address] [place] [address] Performed By: #### 2 4323-8 ####[facility] LABCLIA [id number] [place] [address] Protein [Mass/Vol] 6.4 g/dL Normal 6.3-8.0 [facility] Comment on above: Order Comment: Speci men Type: BLOOD SPECIMENOrdering Facility: [facility] Address: [address] [place] [address] Performed By: #### 2 4323-8 ####[facility] LABCLIA [id number] [place] [address] Sodium [Moles/Vol] 140 mmol/L Normal 136-144 [facility] Comment on above: Order Comment: Speci men Type: BLOOD SPECIMENOrdering Facility: [facility] Address: [address] [place] [address] Performed By: #### 2 4323-8 ####[facility] LABCLIA [id number] [place] [address] Urea nitrogen [Mass/Vol] 12 mg/dL Normal 9-24 [facility] Comment on above: Order Comment: Speci men Type: BLOOD SPECIMENOrdering Facility: [facility] Address: [address] [place] [address] Performed By: #### 2 4323-8 ####[facility] LABIA [id number] [place] [address] Lipid 1996 panelon 5 Cholesterol [Mass/Vol] 150 mg/dL Normal <200 [facility] Comment on above: Order Comment: Speci men Type: BLOOD SPECIMENOrdering Facility: [facility] Address: [address] [place] [address] Result Comment: <200 mg/dL, Desirable 200-239 mg/dL, Borderline high >239 mg/dL, High Performed By: #### 2 4331-1 ####[facility] LABCLIA [id number] [address] [address] [facility] LABCLIA [id number] [place] [address] Cholesterol in HDL [Mass/Vol] 31 mg/dL Low >39 [facility] Comment on above: Order Comment: Speci men Type: BLOOD SPECIMENOrdering Facility: [facility] Address: [address] [place] [address] Result Comment: 40-5 9 mg/dL, Acceptable >59 mg/dL, High: Negative risk factor for coronary heart disease <40 mg/dL, Low: Positive risk factor for coronary heart disease Performed By: #### 2 4331-1 ####[facility] LABCLIA [id number] [address] LABCLIA [id number] [place] [address] Cholesterol in LDL [Mass/Vol] 73 mg/dL Normal <100 [facility] Comment on above: Order Comment: Speci men Type: BLOOD SPECIMENOrdering Facility: [facility] Address: [address] [place] [address] Result Comment: <100 mg/dL, Optimal 100-129 mg/dL, Near optimal/above optimal 130-159 mg/dL, Borderline high 160-189 mg/dL, High >189 mg/dL, Very high Secondary prevention optimal LDL Cholesterol levels are recommended to be <70 mg/dL LDL cholesterol is calculated using the Govea-NIH equation. Performed By: #### 2 4331-1 ####[facility] LABCLIA [id number] [place] [address] [facility] LABCLIA [id number] [place] [address] Cholesterol in LDL/Cholesterol in HDL [Mass ratio] 2.35 {ratio} Normal <2.54 [facility] Comment on above: Order Comment: Brittany kern Type: BLOOD SPECIMENOrdering Facility: [facility] Address: [address] [place] [address] Result Comment: Refe meena: 1. National Cholesterol Education Program ATP III Guideline At-A-Glance Quick Desk Reference: National Heart, Lung, and Blood Grant. National Institutes of Health. 2001: NIH Publication No. 01-3305. 2. An International Atherosclerosis Society position paper: global recommendations for the management of dyslipidemia: executive summary, Atherosclerosis. 2014: 232(2):410-413. Performed By: #### 2 4331-1 ####[facility] LABCLIA [id number] [address] LABCLIA [id number] [place] [address] Cholesterol in VLDL [Mass/Vol] 43 mg/dL High <30 [facility] Comment on above: Order Comment: Speci concha Type: BLOOD SPECIMENOrdering Facility: [facility] Address: [address] [place] [address] Performed By: #### 2 4331-1 ####[facility] LABCLIA [id number] [address] LABCLIA [id number] [place] [address] Cholesterol non HDL [Mass/Vol] 119 mg/dL Normal <130 [facility] Comment on above: Order Comment: Kerlinei men Type: BLOOD SPECIMENOrdering Facility: [facility] Address: [address] [place] [address] Result Comment: <130 mg/dL, Optimal 130-159 mg/dL, Near optimal/above optimal 160-189 mg/dL, Borderline high 190-219 mg/dL, High >219 mg/dL, Very high Secondary prevention optimal non HDL Cholesterol levels are recommended to be <100 mg/dL Performed By: #### 2 4331-1 ####[facility] LABCLIA [id number] [address] [address] [facility] LABCLIA [id number] [place] [address] Cholesterol.total/Koki sterol in HDL [Mass ratio] 4.84 {ratio} Normal <5.10 [facility] Comment on above: Order Comment: Speci men Type: BLOOD SPECIMENOrdering Facility: [facility] Address: [address] [place] [address] Performed By: #### 2 4331-1 ####[facility] LABCLIA [id number] [address] [address] [facility] LABCLIA [id number] [place] [address] FASTING TIME 12 hrs Normal [facility] Comment on above: Order Comment: Speci men Type: BLOOD SPECIMENOrdering Facility: [facility] Address: [address] [place] [address] Performed By: #### 2 4331-1 ####[facility] LABCLIA [id number] [address] [address] [facility] LABCLIA [id number] [place] [address] Triglyceride [Mass/Vol] 281 mg/dL High <150 [facility] Comment on above: Order Comment: Speci men Type: BLOOD SPECIMENOrdering Facility: [facility] Address: [address] [place] [address] Result Comment: <150 mg/dL, Normal 150-199 mg/dL, Borderline high 200-499 mg/dL, High >499 mg/dL, Very high Performed By: #### 2 4331-1 ####[facility] LABCLIA [id number] [address] [address] [facility] LABCLIA [id number] [place] [address] CNOVon 10-03-2024 CNOV Office Visit (PULMST ) -------- JOSÉ MIGUEL CARRENO ([id number]) 1960 M [place] Date Time Provider Department 10/03/24 10:00 AM RICHARD LAWRENCE PULLABryon During your visit today, we recorded the following information about you: Pulse Blood pressure Weight Height 60/minute 143/79 96.2 kg 1.93 m Richard Lawrence, AYDEN.CLIENT MANAGER 10/03/2024 11:02 AM Signed [facility] INCIDENTAL LUNG NODULE PROGRAM (Follow Up) Impression / Recommendations 1. Lung nodule (R91.1) CT scan shows significant improvement in the size of the LLL lung nodule, indicating it was likely due to inflammation or infection rather than malignancy. No new abnormalities were detected. Patient denies dyspnea or chest pain. Auscultation reveals clear lung sounds. - No further follow-up needed for the lung nodule at this time. -------- History of Present Illness José Miguel Carreno JR is a 64 year old male with a pertinent past medical history significant for No history of tobacco abuse who is being seen as a follow up for evaluation of a lung nodule(s). José Miguel Carreno JR had a CT Enterography on 07/01/2024 for the indication of Crohn's Disease. 1 nodule were detected Incidentally. The nodule of greatest concern is a Solid 14 mm nodule with a Irregular border in the Left lower lobe of the lung. Prior imaging: (Yes What type of prior imaging? CT Scan Chest [facility] Was the nodule of concern seen on prior imaging? No) - area of nodular thickening but no definitive nodule José Miguel Carreno is a 64-year-old male with a history of Crohn's disease, presenting for follow-up on a recent CT scan. José Miguel reports persistent anxiety, which he describes as unmanageable, despite otherwise feeling well. He denies dyspnea and chest pain. He acknowledges that his anxiety has been exacerbated by recent health concerns, stating, I don't manage this stuff very well. He describes feeling overwhelmed by multiple health issues, including concerns about his lungs, heart, and gastrointestinal system, which he feels are never-ending. He admits to experiencing imagined symptoms, such as dyspnea and cough, which he attributes to his anxiety. He states, I'm honest about it. I'm not going to tell you it hasn't affected me because it for sure has. José Miguel has a history of Crohn's disease, which he believes has made him a better person. He recalls a particularly difficult period in 2012, when he underwent surgery for a leaking bowel. ROS: Cardiovascular: (-) chest pain Respiratory: (-) shortness of breath Psychiatric: (+) anxiety Last 6 Encounter Wt Readings: Date: Wt: 10/03/2024 96.2 kg (212 lb) 07/04/2024 96.6 kg (213 lb) 01/04/2024 96.2 kg (212 lb) 07/25/2023 97.1 kg (214 lb) 07/25/2023 97.1 kg (214 lb) 12/13/2022 95.7 kg (211 lb) Modified Medical Research [place] Dyspnea Scale (MMRC) I only get breathless with strenous exercise 0 Problem List, History, Medications and allergies have been reviewed from the [facility] electronic medical record and any appropriate up-dates have been made. Physical Exam BP 143/79 (BP Site: Left Arm, BP Position: Sitting, BP Cuff Size: Large Adult) Pulse 60 Ht 193 cm (6' 3.98 ) Wt 96.2 kg (212 lb) SpO2 98% BMI 25.82 kg/m? General: Alert, oriented, no acute distress Respiratory: Clear to posterior auscultation, bilaterally Cardiovascular: Regular rate and rhythm, normal S1 and S2, no murmurs or added sounds Extremities: No clubbing, cyanosis, or edema Diagnostic Data I have personally visualized, reviewed and analyzed the findings on pulmonary function testing and radiographs. Imaging: (Today) CT: Significantly decreased size of previously noted lesion, consistent with resolved infection or inflammation. No new abnormalities identified. CT: Previously noted lesion suspicious for infection or inflammation. Last CT/CTA Chest/Lungs CT CHEST WO IVCON Collected: 10/03/2024 9:37 AM (In process) Impression / Recommendations To optimize physician communication via the electronic health record, the Impression AND Recommendations section has been placed at the beginning of this note. Richard Lawrence APRN.SJ Pulmonary AND Critical Care Medicine October 03, 2024 9:51 AM Follow Up Diagnosis: Lung Nodule Enrolled in Lung Nodule program: Completed Lung Nodule Program Location: [facility] Richard Lawrence APRN.CNP 10/03/2024 10:52 AM Signed We discussed your recent CT scan: - Your CT scan looks significantly improved compared to the previous one. The area of concern has decreased in size, which suggests it was likely due to inflammation or a mild infection. There are no signs of cancer or any new findings on the scan. This is excellent (more content not included)... Normal [facility] CT CHEST WO IVCONon 10-04-19 CT CHEST WO IVCON * * *Final Report* * * DATE OF EXAM: Oct 03 2024 9:51AM [facility] 0541 - CT CHEST WO IVCON / [...] 540. Localizer images: No additional findings. - IMPRESSION: 1. Cluster of peribronchial nodules in [...] new or increasing intrathoracic lymphadenopathy is noted. 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: GIANNI Transcribe Date/Time: Oct 04 2024 1:51P Dictated by : PARADISE PRINCE MD This examination was interpreted and the report reviewed and electronically signed by: PARADISE PRINCE MD on Oct 04 2024 2:08PM EST [id number] Normal [facility] CNCOon 10-01-2024 CNCO Letter Text Normal [facility] CNPNon 09-30-2024 CNPN Telephone (GASTMN) -------- JOSÉ MIGUEL CARRENO ([id number]) 1960 [facility] Date Time Provider Department 09/30/24 JAY PAUL GASTRI During your visit today, we recorded the following information about you: Amisha Burroughs 09/30/2024 12:21 PM Signed Received fax from Joanna Determination Letter indexed into chart. Amisha Molina Deputy Brand Inspector Amy Ivory 09/30/2024 1:59 PM Signed Received communication from Dr. Moss's child care cook of denied prior authorization request for patient's Skyrizi OBI Q4 therapy. Upon inspection of [employer] Portal patient was not previously enrolled. Enrollment task has been completed. Denial letter has been uploaded to portal and [facility] to over see request. Routing update to child care cook. Rosy Ivory Biologics Navigator Kate Traylor LPN 10/16/2024 2:15 PM Signed Received via fax approval letter for Julio Fitch, a copy was sent to scanning. IVETTE Hester Militsa 10/16/2024 2:22 PM Signed Received a f[facility]u call [facility] indicating that Bridge approval letter does not reflect the continuation of Bridge approval dates. Hub is unable to alter the dates on the letter. Routing update to care team. Rosy Ivory Biologics Navigator Allergies As of Date: 09/30/2024 Noted Allergy Reaction IMURAN (AZATHIOPRINE) 06/21/2022 14 - Other: See Comments Comments: Joint stiffness TYLENOL (ACETAMINOPHEN) 06/21/2022 14 - Other: See Comments Comments: Fever and clammy Date Reviewed: 09/03/2024 Reviewed by: Trina Monzon RN - Fully Assessed Reason for Visit: Medication Authorization [2049] Cmt: Denial Letter Prescriptions as of 10/16/2024 - budesonide, enteric coated (ENTOCORT EC) 3 mg 24 hr capsule Take 2 capsules by mouth once daily - budesonide, enteric coated (ENTOCORT EC) 3 mg 24 hr capsule Take 2 capsules by mouth once daily Patient should start on October 11, 2024. - vedolizumab (ENTYVIO PEN) 108 mg/0.68 mL pen Inject 108mg (1 pen) subcutaneously every other week. - vedolizumab (ENTYVIO PEN) 108 mg/0.68 mL pen Inject 108mg (1 pen) subcutaneously every other week. - cyanocobalamin 1,000 mcg/mL Inject 1 mL every 4 weeks then once per month following - potassium chloride 20 mEq TbER Take 4 tablets by mouth once daily. - rosuvastatin (CRESTOR) 20 mg tablet Take 1 tablet by mouth daily at bedtime. - COPPER ORAL Take by mouth. - risankizumab-rzaa (SKYRIZI) 360 mg/2.4 mL (150 mg/mL) wearable injector Inject 360 mg/2.4 mL subcutaneously once every 4 weeks - metoprolol succinate ER (TOPROL XL) 25 mg 24 hr tablet Take 1 tablet by mouth two times a day. - lisinopril (ZESTRIL) 20 mg tablet Take 10 mg by mouth once daily. - Cholecalciferol, Vitamin D3, 25 mcg (1,000 unit) cap Take by mouth q 24 HR. - ferrous bis-glycinate chelate (IRON BISGLYCINATE CHELATE) 29 mg iron cap Take 1 capsule by mouth once daily. 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 that he has to fill his Entyvio pen with the [facility] specialty pharmacy. Pended for submission to plan required Specialty pharmacy. Requested Prescriptions Pending Prescriptions Disp Refills vedolizumab (ENTYVIO PEN) 108 mg/0.68 mL pen 1.36 mL 2 Sig: Inject 108mg (1 pen) subcutaneously every other week. Also during call patient stated that he was advised by [employer] that he is due for a 180 day appeal letter for his Skyrizi. When asked patient stated he is due for his next Skyrizi 10/03/24 Will call to check status of Entyvio pen appeal sent to patients plan 09/10/24 IVETTE Hester Tiesha, LPN 09/18/2024 12:20 PM Signed Call placed to [phone] [facility] authorization line after selection made call auto transfers to [facility]. Spoke with rep Judit Noble who stated the case is pending review with internal MD Decision. Tirn around time frame is 30 business days from receipt. Per rep plan received appeal request on 09/10/24. IVETTE Hester Tiesha, LPN 09/24/2024 8:23 AM Addendum Call placed to [facility] prior auth center [phone] spoke with rep Loida Bai Verbally completed prior auth for Skyrizi 360 mg/2.4 mL every 4 weeks. case requires case review that can take up to 5 days Requested chart notes be faxed to [phone]. Kate Traylor LPN . Nathalia Weldon 09/20/2024 2:01 PM Signed Requested chart notes have been successfully faxed to [facility] at fax#[phone]. Nathalia Camara Pomology Teacher Kate Traylor LPN 09/30/2024 12:37 PM Addendum Received denial letter from [facility]. A copy is in scanned documents 09/27/24. Denial letter faxed successfully to Julio Fitch complete [phone]. IVETTE Hester Tiesha, LPN 10/03/2024 11:35 AM Signed Appeal letter composed 10/01/[address] Moss for review. Jay Paul MD, PhD Kate Traylor LPN I made a few edits. Letter is good to go now. MB Appeal faxed successfully to Joanna BS Grievances and appeals [phone]. Kate Traylor LPN Amy Ivory 10/15/2024 9:45 AM Signed Received denial determination letter from Dr. Moss's child care cook for Entyvio Pen request. Patient has been enrolled in the [employer] portal for request of initiation of Pen Start program. A call was placed to [facility] to over see request. Routing update to child care cook. Rosy Ivory Kenji Cookkelly 10/18/2024 9:24 AM Signed Received f/u communication from [facility] [employer] indicating that patient has not provided the necessary consents. A call was placed to patient advised of the above. Patient indicated task will be completed today. A message has been sent to [facility] case resource manager of the above. Routing update to child care cook. Rosy GreenbergAmy Taylor 10/25/2024 10:09 AM Signed Received f/u communication from [facility] [employer] [facility] indicating that patient has been approved for [employer] START PEN program. Effective date 10/25/2024. Per case resource manager terms of approval letter have not been updated to reflect that the program is now approved for 3 years.Advised that pen is set to be delivered to patient in 11/22. Approval letter has been scanned into [employer]. Routing update to child care cook. Rosy Greenbergpatti StarksKate Braxton LPN 10/29/2024 3:29 PM Signed Follow up of [facility] appeal Letter response located in scanned documents Denial upheld Kate Traylor LPN Amy Ivory 11/01/2024 10:07 AM Signed Received call from [facility] specialty pharmacy to confirm prescription. Spoke to pharmacist Sergio, verbally confirmed rx. Patient has been entered into the WQ for outreach to schedule delivery of medication. Routing update to child care cook. Rosy Ivory Robyn Zuniga Allergies As of Date: 09/18/2024 Noted Allergy Reaction IMURAN (AZATHIOPRINE) 06/21/2022 14 - Other: See Comments Comments: Joint stiffness TYLENOL (ACETAMINOPHEN) 06/21/2022 14 - Other: See Comments Comments: Fever and clammy Date Reviewed: 09/03/2024 Reviewed by: Trina Monzon, SYDNEY - Fully Assessed Reason for Visit: Medication Problem [65] Cmt: Entyvio pen at wrong specialty pharmacy [place] updated appeal letter needed for bridge program Visit Diagnosis: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) [K50.813] Order(s):vedolizumab (ENTYVIO PEN) 108 mg/0.68 mL penInject 108mg (1 (more content not included)... Normal [facility] 09-05-2024 [facility] Telephone (GASTMN) -------- JOSÉ MIGUEL CARRENO ([id number]) 1960 M [facility] Date Time Provider Department 09/05/24 JAY PAUL During your visit today, we recorded the following information about you: Kate Traylor LPN 09/05/2024 10:29 AM Signed Chart follow up Located denial of Entyvio Pen in scanned documents Called spoke with patient assisted with scheduling a virtual visit with Judit Gudino APRN 09/09/24 10:30 am. IVETTE Hester Jessica, APRN.CLIENT MANAGER 09/05/2024 11:21 AM Signed Will work on appeal letter Judit Gudino APRN.[facility] 09/10/2024 8:25 AM Signed Appeal letter drafted in chart Kate Traylor LPN 09/10/2024 8:57 AM Signed Appeal letter faxed successfully to [facility] appeals [phone]. IVETTE Hester Tiesha, LPN 09/30/2024 10:05 AM Signed Kate Traylor LPN 10/14/2024 3:54 PM Signed Call placed to [phone] [facility] authorization line after selection made call auto transfers to [facility]. Spoke with rep Ayla Baito check status of appeal submitted 09/10/24 denial was upheld. Requested denial letter be faxed to this office (nurse line) . Awaiting fax Kate Traylor LPN Nathalia Weldon 10/14/2024 3:55 PM Signed Denial letter received via mail for Entyvio 108mg/0.68ml Pen. Documents have been uploaded into [email or web address] for further review Kate Traylor LPN 10/14/2024 3:55 PM Signed Fax denial received and a copy has been sent to scanning .. Kate Traylor LPN Allergies As of Date: 09/05/2024 Noted Allergy Reaction IMURAN (AZATHIOPRINE) 06/21/2022 14 - Other: See Comments Comments: Joint stiffness TYLENOL (ACETAMINOPHEN) 06/21/2022 14 - Other: See Comments Comments: Fever and clammy Date Reviewed: 09/03/2024 Reviewed by: Trina Monzon, RN - Fully Assessed Reason for Visit: Medication Problem [65] Cmt: Entyvio Pen denial Prescriptions as of 10/14/2024 - budesonide, enteric coated (ENTOCORT EC) 3 mg 24 hr capsule Take 2 capsules by mouth once daily - budesonide, enteric coated (ENTOCORT EC) 3 mg 24 hr capsule Take 2 capsules by mouth once daily Patient should start on October 11, 2024. - vedolizumab (ENTYVIO PEN) 108 mg/0.68 mL pen Inject 108mg (1 pen) subcutaneously every other week. - vedolizumab (ENTYVIO PEN) 108 mg/0.68 mL pen Inject 108mg (1 pen) subcutaneously every other week. - cyanocobalamin 1,000 mcg/mL Inject 1 mL every 4 weeks then once per month following - potassium chloride 20 mEq TbER Take 4 tablets by mouth once daily. - rosuvastatin (CRESTOR) 20 mg tablet Take 1 tablet by mouth daily at bedtime. - COPPER ORAL Take by mouth. - risankizumab-rzaa (SKYRIZI) 360 mg/2.4 mL (150 mg/mL) wearable injector Inject 360 mg/2.4 mL subcutaneously once every 4 weeks - metoprolol succinate ER (TOPROL XL) 25 mg 24 hr tablet Take 1 tablet by mouth two times a day. - lisinopril (ZESTRIL) 20 mg tablet Take 10 mg by mouth once daily. - Cholecalciferol, Vitamin D3, 25 mcg (1,000 unit) cap Take by mouth q 24 HR. - ferrous bis-glycinate chelate (IRON BISGLYCINATE CHELATE) 29 mg iron cap Take 1 capsule by mouth once daily. 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] 06/22/2022 Pneumoperitoneum [K66.8] 06/22/2022 Hypovolemic shock (HCC) [R57.1] 06/22/2022 Syncope [R55] 06/22/2022 Thrombocytopenia (HCC) [D69.6] 06/25/2022 S/P implantation of automatic cardioverter/defi*2022 Essential hypertension [I10] 06/25/2022 Leukocytosis [D72.829] 06/25/2022 GERD with esophagitis [K21.00] 06/25/2022 Chela esophagitis (HCC) [B37.81] 06/25/2022 Acute respiratory failure with hypoxia (HCC) [J*06/25/2022 Letter Text Encounter Status:Closed by KATE TRAYLOR on 09/09/24 [facility] 09-03-2024 [facility] Telephone ([facility]) -------- JOSÉ MIGUEL CARRENO ([id number]) 1960 M [facility] Date Time Provider Department 09/03/24 BRANDON CHINCHILLA During your visit today, we recorded the following information about you: Allergies As of Date: 09/03/2024 Noted Allergy Reaction IMURAN (AZATHIOPRINE) 06/21/2022 14 - Other: See Comments Comments: Joint stiffness TYLENOL (ACETAMINOPHEN) 06/21/2022 14 - Other: See Comments Comments: Fever and clammy Date Reviewed: 09/03/2024 Reviewed by: Trina Monzon, SYDNEY - Fully Assessed Prescriptions as of 09/09/2024 - iv contrast (will be provided with radiology test) CT Enterography W Inject, intravenously, once for 1 dose.No IV access, insert saline lock prior to the beginning of sedation, infusion, injection of imaging exam. Discontinue saline lock post exam. If Pt. has a central line or IVAD, may access for administration according to line specific nursing protocol. Once exam is complete flush line and de-access according to line specific nursing protocol in the CT contrast administration guidelines link. - enteric contrast (will be provided with radiology test) For CT ENTEROGRAPHY W IVCON order Administer, As Directed One Time Only, via Oral, Rectal, both Oral and Rectal, Enteric Tube, Stoma or Indwelling Catheter,? Enteric Contrast as designated per enteric contrast guidelines. - budesonide, enteric coated (ENTOCORT EC) 3 mg 24 hr capsule Currently on 6 mg will try to wean to 3 mg after 2-4 weeks - vedolizumab (ENTYVIO PEN) 108 mg/0.68 mL pen Inject 108mg (1 pen) subcutaneously every other week. - vedolizumab (ENTYVIO PEN) 108 mg/0.68 mL pen Inject 108mg (1 pen) subcutaneously every other week. - cyanocobalamin 1,000 mcg/mL Inject 1 mL every 4 weeks then once per month following - potassium chloride 20 mEq TbER Take 4 tablets by mouth once daily. - rosuvastatin (CRESTOR) 20 mg tablet Take 1 tablet by mouth daily at bedtime. - COPPER ORAL Take by mouth. - risankizumab-rzaa (SKYRIZI) 360 mg/2.4 mL (150 mg/mL) wearable injector Inject 360 mg/2.4 mL subcutaneously once every 4 weeks - metoprolol succinate ER (TOPROL XL) 25 mg 24 hr tablet Take 1 tablet by mouth two times a day. - lisinopril (ZESTRIL) 20 mg tablet Take 10 mg by mouth once daily. - Cholecalciferol, Vitamin D3, 25 mcg (1,000 unit) cap Take by mouth q 24 HR. - ferrous bis-glycinate chelate (IRON BISGLYCINATE CHELATE) 29 mg iron cap Take 1 capsule by mouth once daily. 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] 06/22/2022 Pneumoperitoneum [K66.8] 06/22/2022 Hypovolemic shock (HCC) [R57.1] 06/22/2022 Syncope [R55] 06/22/2022 Thrombocytopenia (HCC) [D69.6] 06/25/2022 S/P implantation of automatic cardioverter/defi*2022 Essential hypertension [I10] 06/25/2022 Leukocytosis [D72.829] 06/25/2022 GERD with esophagitis [K21.00] 06/25/2022 Chela esophagitis (HCC) [B37.81] 06/25/2022 Acute respiratory failure with hypoxia (HCC) [J*06/25/2022 Encounter Status:Closed by BRANDON CHINCHILLA on 09/09/24 Normal [facility] 25-hydroxyvitamin D3 [Mass/Vol] 41.4 ng/mL Normal 31.0-80.0 [facility] Comment on above: Order Comment: Speci men Type: BLOOD SPECIMENOrdering Facility: [facility] Address: [address] [place] [address] Result Comment: Clas sification of 25 [place] Vitamin D status: Deficiency/Insufficiency: < or = 30 ng/ml. Sufficiency/Optimal Levels: 31-80 ng/mL Toxicity: > 100 ng/mL. Test performed by chemiluminescent immunoassay. Performed By: #### 1 989-3 ####[facility] LABCLIA [id number] [place] [address] [address] [place] CBC W Auto Differential pane l (Bld)on 08-19-2024 Basophils (Bld) [#/Vol] 0.08 10*3/uL Normal <0.11 [facility] Comment on above: Order Comment: Speci men Type: BLOOD SPECIMENOrdering Facility: [facility] Address: [address] [place] [address] Performed By: #### 5 7021-8 ####[facility] LABCLIA [id number] [place] [address] Basophils/100 WBC (Bld) 0.8 % Normal [facility] Comment on above: Order Comment: Speci men Type: BLOOD SPECIMENOrdering Facility: [facility] Address: [address] [place] [address] Performed By: #### 5 7021-8 ####[facility] LABCLIA [id number] [place] [address] Differential cell count method Nom (Bld) Auto Normal [facility] Comment on above: Order Comment: Speci men Type: BLOOD SPECIMENOrdering Facility: [facility] Address: [address] [place] [address] Performed By: #### 5 7021-8 ####[facility] LABCLIA [id number] [place] [address] Eosinophils (Bld) [#/Vol] 0.24 10*3/uL Normal <0.46 [facility] Comment on above: Order Comment: Speci men Type: BLOOD SPECIMENOrdering Facility: [facility] Address: [address] [place] [address] Performed By: #### 5 7021-8 ####[facility] LABCLIA [id number] [place] [address] Eosinophils/100 WBC (Bld) 2.5 % Normal [facility] Comment on above: Order Comment: Speci men Type: BLOOD SPECIMENOrdering Facility: [facility] Address: [address] [place] [address] Performed By: #### 5 7021-8 ####[facility] LABCLIA [id number] [place] [address] Erythrocyte distribution width (RBC) [Ratio] 13.4 % Normal 11.5-15.0 [facility] Comment on above: Order Comment: Speci men Type: BLOOD SPECIMENOrdering Facility: [facility] Address: [address] [place] [address] Performed By: #### 5 7021-8 ####[facility] LABCLIA [id number] [place] [address] Hematocrit (Bld) [Volume fraction] 42.2 % Normal 39.0-51.0 [facility] Comment on above: Order Comment: Speci men Type: BLOOD SPECIMENOrdering Facility: [facility] Address: [address] [place] [address] Performed By: #### 5 7021-8 ####[facility] LABCLIA [id number] [place] [address] Hemoglobin (Bld) [Mass/Vol] 14.1 g/dL Normal 13.0-17.0 [facility] Comment on above: Order Comment: Speci men Type: BLOOD SPECIMENOrdering Facility: [facility] Address: [address] [place] [address] Performed By: #### 5 7021-8 ####[facility] LABCLIA [id number] [place] [address] Immature granulocytes (Bld) [#/Vol] 0.13 10*3/uL High <0.10 [facility] Comment on above: Order Comment: Speci men Type: BLOOD SPECIMENOrdering Facility: [facility] Address: [address] [place] [address] Performed By: #### 5 7021-8 ####[facility] LABCLIA [id number] [place] [address] Immature granulocytes/100 WBC (Bld) 1.3 % Normal [facility] Comment on above: Order Comment: Speci men Type: BLOOD SPECIMENOrdering Facility: [facility] Address: [address] [place] [address] Performed By: #### 5 7021-8 ####[facility] LABCLIA [id number] [place] [address] Lymphocytes (Bld) [#/Vol] 1.89 10*3/uL Normal 1.00-4.00 [facility] Comment on above: Order Comment: Speci men Type: BLOOD SPECIMENOrdering Facility: [facility] Address: [address] [place] [address] Performed By: #### 5 7021-8 ####[facility] LABCLIA [id number] [place] [address] Lymphocytes/100 WBC (Bld) 19.6 % Normal [facility] Comment on above: Order Comment: Speci men Type: BLOOD SPECIMENOrdering Facility: [facility] Address: [address] [place] [address] Performed By: #### 5 7021-8 ####[facility] LABCLIA [id number] [place] [address] MCH (RBC) [Entitic mass] 29.2 pg Normal 26.0-34.0 [facility] Comment on above: Order Comment: Speci men Type: BLOOD SPECIMENOrdering Facility: [facility] Address: [address] [place] [address] Performed By: #### 5 7021-8 ####[facility] LABCLIA [id number] [place] [address] MCHC (RBC) [Mass/Vol] 33.4 g/dL Normal 30.5-36.0 [facility] Comment on above: Order Comment: Speci men Type: BLOOD SPECIMENOrdering Facility: [facility] Address: [address] [place] [address] Performed By: #### 5 7021-8 ####[facility] LABCLIA [id number] [place] [address] MCV (RBC) [Entitic vol] 87.4 fL Normal 80.0-100.0 [facility] Comment on above: Order Comment: Speci men Type: BLOOD SPECIMENOrdering Facility: [facility] Address: [address] [place] [address] Performed By: #### 5 7021-8 ####[facility] LABCLIA [id number] [place] [address] Monocytes (Bld) [#/Vol] 0.88 10*3/uL High <0.87 [facility] Comment on above: Order Comment: Speci men Type: BLOOD SPECIMENOrdering Facility: [facility] Address: [address] [place] [address] Performed By: #### 5 7021-8 ####[facility] LABCLIA [id number] [place] [address] Monocytes/100 WBC (Bld) 9.1 % Normal [facility] Comment on above: Order Comment: Speci men Type: BLOOD SPECIMENOrdering Facility: [facility] Address: [address] [place] [address] Performed By: #### 5 7021-8 ####[facility] LABCLIA [id number] [place] [address] Neutrophils (Bld) [#/Vol] 6.42 10*3/uL Normal 1.45-7.50 [facility] Comment on above: Order Comment: Speci men Type: BLOOD SPECIMENOrdering Facility: [facility] Address: [address] [place] [address] Performed By: #### 5 7021-8 ####[facility] LABCLIA [id number] [place] [address] Neutrophils/100 WBC (Bld) 66.7 % Normal [facility] Comment on above: Order Comment: Speci men Type: BLOOD SPECIMENOrdering Facility: [facility] Address: [address] [place] [address] Performed By: #### 5 7021-8 ####[facility] LABCLIA [id number] [place] [address] Nucleated RBC (Bld) [#/Vol] 10*3/uL Normal <0.01 [facility] Comment on above: Order Comment: Speci men Type: BLOOD SPECIMENOrdering Facility: [facility] Address: [address] [place] [address] Performed By: #### 5 7021-8 ####[facility] LABCLIA [id number] [place] [address] Nucleated RBC/100 WBC (Bld) [Ratio] 0.0 /100 WBC Normal [facility] Comment on above: Order Comment: Speci men Type: BLOOD SPECIMENOrdering Facility: [facility] Address: [address] [place] [address] Performed By: #### 5 7021-8 ####[facility] LABCLIA [id number] [place] [address] Platelet mean volume (Bld) [Entitic vol] 9.7 fL Normal 9.0-12.7 [facility] Comment on above: Order Comment: Speci men Type: BLOOD SPECIMENOrdering Facility: [facility] Address: [address] [place] [address] Performed By: #### 5 7021-8 ####[facility] LABCLIA [id number] [place] [address] Platelets (Bld) [#/Vol] 205 10*3/uL Normal 150-400 [facility] Comment on above: Order Comment: Speci men Type: BLOOD SPECIMENOrdering Facility: [facility] Address: [address] [place] [address] Performed By: #### 5 7021-8 ####[facility] LABCLIA [id number] [place] [address] RBC (Bld) [#/Vol] 4.83 10*6/uL Normal 4.20-6.00 [facility] Comment on above: Order Comment: Speci men Type: BLOOD SPECIMENOrdering Facility: [facility] Address: [address] [place] [address] Performed By: #### 5 7021-8 ####[facility] LABCLIA [id number] [place] [address] WBC (Bld) [#/Vol] 9.64 10*3/uL Normal 3.70-11.00 [facility] Comment on above: Order Comment: Speci men Type: BLOOD SPECIMENOrdering Facility: [facility] Address: [address] [place] [address] Performed By: #### 5 7021-8 ####[facility] LABCLIA [id number] [place] [address] [facility] CRP [Mass/Vol] mg/L Normal <0.9 [facility] Comment on above: Order Comment: Speci men Type: BLOOD SPECIMENOrdering Facility: [facility] Address: [address] [place] [address] Performed By: #### 3 034-6, 38882-7, 2276-4, 1988-5 ####[facility] LABCLIA [id number] [place] [id number] [place] Comprehensive metabolic 2000 panelon 08-19-2024 Albumin [Mass/Vol] 3.9 g/dL Normal 3.9-4.9 [facility] Comment on above: Order Comment: Speci men Type: BLOOD SPECIMENOrdering Facility: [facility] Address: [address] [place] [address] Performed By: #### 2 4323-8 ####[facility] LABCLIA [id number] [place] [address] ALP [Catalytic activity/Vol] 88 U/L Normal 38-113 [facility] Comment on above: Order Comment: Speci men Type: BLOOD SPECIMENOrdering Facility: [facility] Address: [address] [place] [address] Performed By: #### 2 4323-8 ####[facility] LABCLIA [id number] [place] [address] ALT [Catalytic activity/Vol] 18 U/L Normal 10-54 [facility] Comment on above: Order Comment: Speci men Type: BLOOD SPECIMENOrdering Facility: [facility] Address: [address] [place] [address] Performed By: #### 2 4323-8 ####[facility] LABCLIA [id number] [place] [address] Anion gap [Moles/Vol] 10 mmol/L Normal 8-15 [facility] Comment on above: Order Comment: Speci men Type: BLOOD SPECIMENOrdering Facility: [facility] Address: [address] [place] [address] Performed By: #### 2 4323-8 ####[facility] LABCLIA [id number] [place] [address] AST [Catalytic activity/Vol] 17 U/L Normal 14-40 [facility] Comment on above: Order Comment: Speci men Type: BLOOD SPECIMENOrdering Facility: [facility] Address: [address] [place] [address] Performed By: #### 2 4323-8 ####[facility] LABCLIA [id number] [place] [address] Bilirubin [Mass/Vol] 0.4 mg/dL Normal 0.2-1.3 [facility] Comment on above: Order Comment: Speci men Type: BLOOD SPECIMENOrdering Facility: [facility] Address: [address] [place] [address] Performed By: #### 2 4323-8 ####[facility] LABCLIA [id number] [place] [address] Calcium [Mass/Vol] 9.4 mg/dL Normal 8.5-10.2 [facility] Comment on above: Order Comment: Speci men Type: BLOOD SPECIMENOrdering Facility: [facility] Address: [address] [place] [address] Performed By: #### 2 4323-8 ####[facility] LABCLIA [id number] [place] [address] Chloride [Moles/Vol] 109 mmol/L High 98-107 [facility] Comment on above: Order Comment: Speci men Type: BLOOD SPECIMENOrdering Facility: [facility] Address: [address] [place] [address] Performed By: #### 2 4323-8 ####[facility] LABCLIA [id number] [place] [address] CO2 [Moles/Vol] 21 mmol/L Low 22-30 [facility] Comment on above: Order Comment: Speci men Type: BLOOD SPECIMENOrdering Facility: [facility] Address: [address] [place] [address] Performed By: #### 2 4323-8 ####[facility] LABCLIA [id number] [place] [address] Creatinine [Mass/Vol] 1.06 mg/dL Normal 0.73-1.22 [facility] Comment on above: Order Comment: Speci men Type: BLOOD SPECIMENOrdering Facility: [facility] Address: [address] [place] [address] Performed By: #### 2 4323-8 ####[facility] LABCLIA [id number] [place] [address] Creatinine and Glomerular filtration rate.predicted panel (S/P/Bld) 79 mL/min/1.73m??? Normal >=60 [facility] Comment on above: Order Comment: Speci men Type: BLOOD SPECIMENOrdering Facility: [facility] Address: [address] [place] [address] Result Comment: Sabrina mated Glomerular Filtration Rate (eGFR) is calculated using the 2020 CKD-EPI creatinine equation. This equation utilizes serum creatinine, sex, and age as parameters. The creatinine assay has traceable calibration to isotope dilution-mass spectrometry. Refer to KDIGO guidelines for clinical interpretation. In patients with unstable renal function, e.g. those with acute kidney injury, the eGFR may not accurately reflect actual GFR. Performed By: #### 2 4323-8 ####[facility] LABCLIA [id number] [place] [address] Glucose [Mass/Vol] 92 mg/dL Normal 74-99 [facility] Comment on above: Order Comment: Brittany kern Type: BLOOD SPECIMENOrdering Facility: [facility] Address: [address] [place] [address] Result Comment: The [place] Diabetes Association (ADA) provides guidance for cutoff [...] Standards of Medical Care in Diabetes 2016, [place] [employer]. Diabetes Care. 2016.39(Suppl 1). Performed By: #### 2 4323-8 ####[facility] LABCLIA [id number] [place] [address] Potassium [Moles/Vol] 4.3 mmol/L Normal 3.7-5.1 [facility] Comment on above: Order Comment: Brittany kern Type: BLOOD SPECIMENOrdering Facility: [facility] Address: [address] [place] [id number] Performed By: #### 2 4323-8 ####[facility] LABCLIA [id number] [place] [address] Protein [Mass/Vol] 6.2 g/dL Low 6.3-8.0 [facility] Comment on above: Order Comment: Speci men Type: BLOOD SPECIMENOrdering Facility: [facility] Address: [address] [place] [address] Performed By: #### 2 4323-8 ####[facility] LABCLIA [id number] [place] [address] Sodium [Moles/Vol] 140 mmol/L Normal 136-144 [facility] Comment on above: Order Comment: Speci men Type: BLOOD SPECIMENOrdering Facility: [facility] Address: [address] [place] [address] Performed By: #### 2 4323-8 ####[facility] LABCLIA [id number] [place] [address] Urea nitrogen [Mass/Vol] 13 mg/dL Normal 9-24 [facility] Comment on above: Order Comment: Speci men Type: BLOOD SPECIMENOrdering Facility: [facility] Address: [address] [place] [address] Performed By: #### 2 4323-8 ####[facility] LABCLIA [id number] [place] [address] Ferritin SerPl-ncon 2024 Ferritin [Mass/Vol] 244.0 ng/mL Normal 30.3-565.7 [facility] Comment on above: Order Comment: Speci men Type: BLOOD SPECIMENOrdering Facility: [facility] Address: [address] [place] [address] Performed By: #### 3 034-6, 42714-9, 2276-4, 1987-07 ####[facility] LABCLIA [id number] [place] [address] [place] Iron and Iron binding capaci ty panelon 08-19-2024 Iron [Mass/Vol] 93 ug/dL Normal 41-186 [facility] Comment on above: Order Comment: Speci men Type: BLOOD SPECIMENOrdering Facility: [facility] Address: [address] [place] [address] Performed By: #### 3 034-6, 45470-8, 2275-06, 1987-07 ####[facility] LABCLIA [id number] [place] [id number] [place] Iron binding capacity [Mass/Vol] 352 ug/dL Normal 232-386 [facility] Comment on above: Order Comment: Speci men Type: BLOOD SPECIMENOrdering Facility: [facility] Address: [address] [place] [address] Performed By: #### 3 034-6, 53860-0, 2275-06, 1987-07 ####[facility] LABIA [id number] [place] [address] [place] Iron/TIBC [Molar ratio] 26.4 % Normal 15.0-57.0 [facility] Comment on above: Order Comment: Speci men Type: BLOOD SPECIMENOrdering Facility: [facility] Address: [address] [place] [address] Performed By: #### 3 034-6, 16890-3, 2275-06, 1987-07 ####[facility] LABCLIA [id number] [place] [id number] [place] Transferrin SerPl-mCncon Transferrin [Mass/Vol] 269 mg/dL Normal 200-360 [facility] Comment on above: Order Comment: Speci men Type: BLOOD SPECIMENOrdering Facility: [facility] Address: [address] [place] [address] Performed By: #### 3 034-6, 69194-1, 2275-06, 1987-07 ####[facility] LABCLIA [id number] [place] [id number] [place] Vit B12 SerPl-mCncon 025 Cobalamin (Vitamin B12) [Mass/Vol] 284 pg/mL Normal 232-1245 [facility] Comment on above: Order Comment: Speci men Type: BLOOD SPECIMENOrdering Facility: [facility] Address: [address] [place], [place] [address] [address] Performed By: #### 2 132-9 ####[facility] LABCLIA [id number] PEPE REEDERDESElaina [address] CNPNon 07-19-2024 CNPN Telephone [facility] -------- JOSÉ MIGUEL CARRENO ([id number]) 1960 [facility] Date Time Provider Department 07/19/24 RICHARD LAWRENCE [facility] During your visit today, we recorded the following information about you: Richard Lawrence APRN.CNP 07/19/2024 3:21 PM Signed Spoke with patient regarding review of outside images CT Chest 01/07/2020 from [facility] - there is an area of nodular thickening in a similar area as the identified nodule on the CT enterography imaging 07/01/2024. Recommend CT surveillance in three months with CT Chest. Varsha Freeman 07/19/2024 4:22 PM Signed Appointment scheduled Allergies As of Date: 07/19/2024 Noted Allergy Reaction IMURAN (AZATHIOPRINE) 06/21/2022 14 - Other: See Comments Comments: Joint stiffness TYLENOL (ACETAMINOPHEN) 06/21/2022 14 - Other: See Comments Comments: Fever and clammy Date Reviewed: 07/04/2024 Reviewed by: Richard Lawrence APRN.CLIENT MANAGER - Fully Assessed Reason for Visit: Patient Update [1234] Primary Visit Diagnosis:Lung nodules [R91.8] Order(s):CT CHEST WO IVCON [1015177] Order #: [id number] FUTURE Prescriptions as of 07/19/2024 - potassium chloride 20 mEq TbER Take 4 tablets by mouth once daily. - cyanocobalamin 1,000 mcg/mL INJECT 1ML (1000MCG) DIRECTED ONCE A MONTH - budesonide, enteric coated (ENTOCORT EC) 3 mg 24 hr capsule TAKE TWO CAPSULES BY MOUTH EVERY DAY - predniSONE (DELTASONE) 1 mg tablet TAKE 4 TABLETS BY MOUTH EVERY AFTERNOON - budesonide, enteric coated (ENTOCORT EC) 3 mg 24 hr capsule Take 3 capsules by mouth once daily - rosuvastatin (CRESTOR) 20 mg tablet Take 1 tablet by mouth daily at bedtime. - COPPER ORAL Take by mouth. - risankizumab-rzaa (SKYRIZI) 360 mg/2.4 mL (150 mg/mL) wearable injector Inject 360 mg/2.4 mL subcutaneously once every 4 weeks - metoprolol succinate ER (TOPROL XL) 25 mg 24 hr tablet Take 1 tablet by mouth two times a day. - lisinopril (ZESTRIL) 20 mg tablet Take 10 mg by mouth once daily. - predniSONE (DELTASONE) 5 mg tablet take 1 tablet by mouth once daily - Cholecalciferol, Vitamin D3, 25 mcg (1,000 unit) cap Take by mouth q 24 HR. - ferrous bis-glycinate chelate (IRON BISGLYCINATE CHELATE) 29 mg iron cap Take 1 capsule by mouth once daily. 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] 06/25/2022 Acute respiratory failure with hypoxia (HCC) [J*06/25/2022 Encounter Status:Closed by RICHARD LAWRENCE on 07/19/24 Normal [facility] CNCOon 07-16-2024 CNCO Letter Text Normal [facility] CNOVon 07-04-2024 CNOV Office Visit ([facility] ) -------- JOSÉ MIGUEL CARRENO ([id number]) 1960 M [facility] Date Time Provider Department 07/04/24 3:30 PM RICHARD LAWRENCE [facility] During your visit today, we recorded the following information about you: Pulse Blood pressure Weight Height 94/minute 143/93 96.6 kg 1.93 m Richard Lawrence, STEAM BOX TENDER.CLIENT MANAGER 07/11/2024 10:52 AM Signed [facility] INCIDENTAL LUNG NODULE PROGRAM Impression / Recommendations Lung Nodule: There is a LLL 1.[address] identified on CT Enterography 07/01/2024 imaging. This nodule has a 6.8% risk of malignancy in a never smoker with no personal history of cancer or family history of lung cancer. Plan to obtain prior CT Chest images from the [facility] 01/07/2020 for comparison. -------- Requesting Provider: Jay Anand Reason for the Consult José Miguel Carreno JR presents today for consultation / opinion regarding lung nodule(s). My impression and final recommendations will be communicated back to the requesting physician by way of shared medical record or letter via US mail. History of Present Illness José Miguel Carreno JR is a 64 year old male with a pertinent past medical history significant for No history of tobacco abuse, cardiac arrest, AICD, CHF, Crohn's disease, dyslipidemia, GERD, HTN who is being seen as a new consultation for evaluation of a lung nodule(s). José Miguel Carreno JR had a CT Enterography on 07/01/2024 for the indication of Crohn's disease. 1 nodule were detected Incidentally. The nodule of greatest concern is a Solid 14 mm nodule with a Irregular border in the Left lower lobe of the lung. Prior imaging: (Yes What type of prior imaging? CT Scan Chest 01/07/2020 [facility] Was the nodule of concern seen on prior imaging? No) - images unavailable for review at the time of office visit. Respiratory symptoms include: SOB: No Chest tightness: No Coughing: No Hemoptysis: No Wheezing: No Fever/Chills: No Recent Respiratory Infection: Yes - March 2024. Had Covid September 2023 treated with Paxlovid. Unintentional weight loss: No Last 6 Encounter Wt Readings: Date: Wt: 07/04/2024 96.6 kg (213 lb) 01/04/2024 96.2 kg (212 lb) 07/25/2023 97.1 kg (214 lb) 07/25/2023 97.1 kg (214 lb) 12/13/2022 95.7 kg (211 lb) 10/12/2022 93.3 kg (205 lb 9.6 oz) Modified Medical Research [place] Dyspnea Scale (MMRC) I only get breathless with strenous exercise 0 Other Pertinent Clinical Risk Factors: Significant exposures (1 year or more of exposure): None. 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 Recent travel history: [facility] and [facility] in March 2024. Animal exposure: No animals in the home currently. No chickens or birds. Second hand smoke exposure: Yes as a child. Does the patient have a prior history malignancy? No BCC skin CA face Does the patient have a family history of lung cancer? No - questionable history of lung cancer in uncle Malignancy Risk ([facility] model) Lung Nodule Calculator: (if applicable) 6% risk of malignancy. Problem List, History, Medications and allergies have been reviewed from the [facility] electronic medical record and any appropriate up-dates have been made. Physical Exam BP 143/93 (BP Site: Left Arm, BP Position: Sitting, BP Cuff Size: Regular Adult) Pulse 94 Ht 193 cm (6' 4 ) Wt 96.6 kg (213 lb) SpO2 98% BMI 25.93 kg/m? General Appearance: Well appearing, alert, in no acute distress, well-hydrated, well nourished.. Lungs: Lungs clear to auscultation. No wheezing, rhonchi, rales.. Heart: RRR without murmur, gallop, or rubs. No ectopy. Diagnostic Data I have personally visualized, reviewed and analyzed the findings on pulmonary function testing and radiographs. Last CT/CTA Chest/Lungs CT CHEST W IVCON Collected: 01/07/2020 1:20 PM (Final result) Narrative: [facility] Department of Radiology [address] [place] [id number] == Patient Name: JOSÉ MIGUEL CARRENO : 1960 Sex: M Age: Race: WhiteWhite Pt. Location: [id number] Patient Status: I Ordered Date: 01/07/2020 11:50:00 AM Completed Date: 01/07/2020 01:20 PM Requesting Provider: KEVIN BOUDREAUX Attending Provider: PRISCILLA QUIROZ Report Copy To: Signs AND Symptoms: Infiltrates History: See Comments Comments: Infiltrates, sespis; fever; SOB Exam: CT CHEST W CONTRAST == CT CHEST W CONTRAST 01/07/2020 1:20 PM CLINICAL INDICATIONS: Infiltrates TECHNOLOGIST COMMENTS: pt with fever, SOB with decreased O2 sats. S/p - cath proced (more content not included)... Normal [facility] CT ENTEROGRAPHY W IVCONon CT ENTEROGRAPHY W IVCON * * *Final Repor t* * * DATE OF EXAM: Jul 01 2024 10:00AM [facility] 0545 - CT ENTEROGRAPHY W IVCON / PROCEDURE REASON: Crohn's disease of small and large intestines with complication (HCC) * * * * Physician Interpretation * * * * RESULT: EXAMINATION: CT ABDOMEN AND PELVIS WITH INTRAVENOUS CONTRAST AND NEUTRAL ORAL CONTRAST(CT ENTEROGRAPHY) HISTORY: Crohn's disease, ileocolonic stricturing with multiple resections, previously 2010, prior colonoscopy with active ileitis and stricture. Follow-up evaluation. TECHNIQUE: CT of the abdomen and pelvis using single phase Enterography technique CONTRAST: IV: 100 ml of Omnipaque 350 Oral: [address] Radiation dose: Integrated dose-length product (DLP) for this visit = 547 mGy*cm. CT Dose Reduction Employed: Automated exposure control (AEC) COMPARISON: CT 01/28/2024, 05/23/2023, 09/26/2022. RESULT: GI Tract: Ileocecectomy with ileocolonic anastomosis near the level of the right paramidline ventral pelvis. Small bowel: Multifocal skip strictures with mild mural hyperenhancement extending upstream from the level of the ileocolonic anastomosis (approximately 30 cm segment in total), with intermittent small bowel dilation up to 3.1 cm along the right lower ventral abdomen (3:85). Segments of skip stricturing range between 3 cm and 10-15 cm in length with luminal narrowing along the ventral lower abdominal wall, similar in severity and distribution to recent prior CT exams. Mild mural hyperenhancement likely reflects a component of superimposed active inflammation, also similar to most recent prior. The distal small bowel remains dilated upstream from the level of the start of stricturing measuring up to 6 cm, with increased caliber since recent prior and few intraluminal radiopaque pills noted within the dilated segment (3:114). Additionally, there is a matted appearance of small bowel segments near the start of the stricturing immediately adjacent to the dilated segment of distal small bowel, suspicious for mildly complex enteroenteric fistulae (3:105), however difficult to definitively defined due to decompressed segments of small bowel at this level. No associated perienteric or mesenteric abscess. Colon and Rectum: No mural hyperenhancement or wall thickening. Strictures/fistulae: As above Abscess: None Abdomen: Liver: Segment 2/3 cysts, similar to prior. No new or suspicious lesions. Biliary: No bile duct dilation. Gallbladder is unremarkable. Spleen: No mass. No splenomegaly. Pancreas: No mass or duct dilation. Adrenals: No mass. Kidneys: No suspicious renal lesions, calculus, or hydronephrosis. Right lower pole cyst and a few additional subcentimeter lesions too small to characterize but most likely benign. Lymph nodes: No abdominal or pelvic lymphadenopathy. Mesentery/Peritoneum: No ascites or organized collection. Vasculature: The celiac axis and SMA are patent. The portal vein and branches, splenic vein, SMV, and hepatic veins are patent. No abdominal aortic aneurysm. Pelvis: Partially decompressed urinary bladder is unremarkable. No organized intrapelvic collection. Bones/Soft Tissues: Degenerative changes. No suspicious or destructive osseous lesions. Lung Bases: 1.4 cm left lower lobe pulmonary nodular opacity with ill-defined borders and mild surrounding groundglass, new from prior and technically indeterminate, however possibly infectious/inflammatory (3:2). IMPRESSION: MULTIFOCAL STRICTURING WITH IMAGING FINDINGS OF ACTIVE INFLAMMATION DISCONTINUOUSLY INVOLVING THE DISTAL/NEOTERMINAL ILEUM EXTENDING TO THE ILEOCOLONIC ANASTOMOSIS, SIMILAR IN DISTRIBUTION FROM 12/28/2023. PENETRATING DISEASE: MATTED APPEARANCE OF SMALL BOWEL NEAR THE START OF THE DISTAL SMALL BOWEL STRICTURING WITH MORPHOLOGY SUSPICIOUS FOR MILDLY COMPLEX ENTEROENTERIC FISTULAE, HOWEVER DIFFICULT TO DEFINITIVELY DEFINE DUE TO MATTED DECOMPRESSED SEGMENTS. SMALL BOWEL REMAINS PERSISTENTLY DILATED UP TO 6 CM UPSTREAM TO THE START OF STRICTURING WITH OVERALL CALIBER INCREASED FROM RECENT PRIOR. NO ABSCESS. 1.4 CM LEFT LOWER LOBE PULMONARY NODULAR OPACITY WITH ILL-DEFINED BORDERS AND MILD SURROUNDING GROUNDGLASS, NEW FROM PRIOR AND TECHNICALLY INDETERMINATE, HOWEVER POSSIBLY INFECTIOUS/INFLAMMATORY. Incidental Finding: Follow-up Acuity: Incidental Finding: Solid: >8 but <15 mm Routing Code: RI_1 Recommendation: Consult to [facility] - [id number] Time Frame: at the discretion of the clinical team. Comments: Follow-up for this incidentally detected lung nodule with PET/CT or Biopsy within 4 weeks, or Chest CT exam in 3 months is recommended. --END OF FINDING-- COMMUNICATION:? Results will be communicated with the ordering provider via [email or web address] staff message by [facility] [employer] [facility] within 2 business days of report finalization. Transcribe Date/Time: Jul 01 2024 10:44A Dictated by: ANSELMO Newberry (more content not included)... Invalid Interpretation Code [facility] CT Small bowel W contrast PO and W contrast IVOrdered By: [facility] Provider on 07-01-2024 Interpretation and review of laboratory results Abnormal [facility] [place] Radiology Result ACTIONABLE Abnormal [facility] Comment on above: This report contains an incidental or actionable finding. This finding may be a new finding separate from the reason your provider ordered the imaging test or it may be an already known finding that needs additional or continued follow-up. Because of this incidental or actionable finding, you may need another test (imaging or a different type of test). Please contact your provider for the next steps. [facility] [place] CT Small bowel W contrast PO and W contrast Nena 07-01-2024 IMPRESSION: MULTIFOCAL STRICTURING WITH IMAGING FINDINGS OF ACTIVE INFLAMMATION DISCONTINUOUSLY INVOLVING THE DISTAL/NEOTERMINAL ILEUM EXTENDING TO THE ILEOCOLONIC ANASTOMOSIS, SIMILAR IN DISTRIBUTION FROM 12/28/2023. PENETRATING DISEASE: MATTED APPEARANCE OF SMALL BOWEL NEAR THE START OF THE DISTAL SMALL BOWEL STRICTURING WITH MORPHOLOGY SUSPICIOUS FOR MILDLY COMPLEX ENTEROENTERIC FISTULAE, HOWEVER DIFFICULT TO DEFINITIVELY DEFINE DUE TO MATTED DECOMPRESSED SEGMENTS. SMALL BOWEL REMAINS PERSISTENTLY DILATED UP TO 6 CM UPSTREAM TO THE START OF STRICTURING WITH OVERALL CALIBER INCREASED FROM RECENT PRIOR. NO ABSCESS. 1.4 CM LEFT LOWER LOBE PULMONARY NODULAR OPACITY WITH ILL-DEFINED BORDERS AND MILD SURROUNDING GROUNDGLASS, NEW FROM PRIOR AND TECHNICALLY INDETERMINATE, HOWEVER POSSIBLY INFECTIOUS/INFLAMMATORY. Incidental Finding: Follow-up Acuity: Incidental Finding: Solid: >8 but <15 mm Routing Code: RI_1 Recommendation: Consult to [facility] - [id number] Time Frame: at the discretion of the clinical team. Comments: Follow-up for this incidentally detected lung nodule with PET/CT or Biopsy within 4 weeks, or Chest CT exam in 3 months is recommended. --END OF FINDING-- COMMUNICATION:? Results will be communicated with the ordering provider via [email or web address] staff message by [facility] within 2 business days of report finalization. Transcribe Date/Time: Jul 01 2024 10:44A Dictated by: ANSELMO KAMARA DO This examination was interpreted and the report reviewed and electronically signed by: ANSELMO KAMARA DO on Jul 01 2024 11:17AM EST Thank you for allowing us to participate in the care of your patient. Should there be any questions regarding this interpretation, please call [phone]. If you are unable to reach us at the number above, please feel free to contact [facility] at [phone]. DIVISION OF RADIOLOGY * * *Final Report* * * DATE OF EXAM: Jul 01 2024 10:00AM [facility] 0545 - CT ENTEROGRAPHY W IVCON / PROCEDURE REASON: Crohn's disease of small and large intestines with complication (HCC) * * * * Physician Interpretation * * * * RESULT: EXAMINATION: CT ABDOMEN AND PELVIS WITH INTRAVENOUS CONTRAST AND NEUTRAL ORAL CONTRAST(CT ENTEROGRAPHY) HISTORY: Crohn's disease, ileocolonic stricturing with multiple resections, previously 2010, prior colonoscopy with active ileitis and stricture. Follow-up evaluation. TECHNIQUE: CT of the abdomen and pelvis using single phase Enterography technique CONTRAST: IV: 100 ml of Omnipaque 350 Oral: [address] Radiation dose: Integrated dose-length product (DLP) for this visit = 547 mGy*cm. CT Dose Reduction Employed: Automated exposure control (AEC) COMPARISON: CT 01/28/2024, 05/23/2023, 09/26/2022. RESULT: GI Tract: Ileocecectomy with ileocolonic anastomosis near the level of the right paramidline ventral pelvis. Small bowel: Multifocal skip strictures with mild mural hyperenhancement extending upstream from the level of the ileocolonic anastomosis (approximately 30 cm segment in total), with intermittent small bowel dilation up to 3.1 cm along the right lower ventral abdomen (3:85). Segments of skip stricturing range between 3 cm and 10-15 cm in length with luminal narrowing along the ventral lower abdominal wall, similar in severity and distribution to recent prior CT exams. Mild mural hyperenhancement likely reflects a component of superimposed active inflammation, also similar to most recent prior. The distal small bowel remains dilated upstream from the level of the start of stricturing measuring up to 6 cm, with increased caliber since recent prior and few intraluminal radiopaque pills noted within the dilated segment (3:114). Additionally, there is a matted appearance of small bowel segments near the start of the stricturing immediately adjacent to the dilated segment of distal small bowel, suspicious for mildly complex enteroenteric fistulae (3:105), however difficult to definitively defined due to decompressed segments of small bowel at this level. No associated perienteric or mesenteric abscess. Colon and Rectum: No mural hyperenhancement or wall thickening. Strictures/fistulae: As above Abscess: None Abdomen: Liver: Segment 2/3 cysts, similar to prior. No new or suspicious lesions. Biliary: No bile duct dilation. Gallbladder is unremarkable. Spleen: No mass. No splenomegaly. Pancreas: No mass or duct dilation. Adrenals: No mass. Kidneys: No suspicious renal lesions, calculus, or hydronephrosis. Right lower pole cyst and a few additional subcentimeter lesions too small to characterize but most likely benign. Lymph nodes: No abdominal or pelvic lymphadenopathy. Mesentery/Peritoneum: No ascites or organized collection. Vasculature: The celiac axis and SMA are patent. The portal vein and branches, splenic vein, SMV, and hepatic veins are patent. No abdominal aortic aneurysm. Pelvis: Partially decompressed urinary bladder is unremarkable. No organized intrapelvic collection. Bones/Soft Tissues: Degenerative changes. No suspicious or destructive osseous lesions. Lung Bases: 1.4 cm left lower lobe pulmonary nodular opacity with ill-defined borders and mild surrounding groundglass, new from prior and technically indeterminate, however possibly infectious/inflammatory (3:2). DIVISION OF RADIOLOGY Provider, [facility] - 07/01/2024 * * *Final Report* * * DATE OF EXAM: Jul 01 2024 10:00AM [facility] 0545 - CT ENTEROGRAPHY W IVCON / PROCEDURE REASON: Crohn's disease of small and large intestines with complication (HCC) * * * * Physician Interpretation * * * * RESULT: EXAMINATION: CT ABDOMEN AND PELVIS WITH INTRAVENOUS CONTRAST AND NEUTRAL ORAL CONTRAST(CT ENTEROGRAPHY) HISTORY: Crohn's disease, ileocolonic stricturing with multiple resections, previously 2011, prior colonoscopy with active ileitis and stricture. Follow-up evaluation. TECHNIQUE: CT of the abdomen and pelvis using single phase Enterography technique CONTRAST: IV: 100 ml of Omnipaque 350 Oral: [address] Radiation dose: Integrated dose-length product (DLP) for this visit = 547 mGy*cm. CT Dose Reduction Employed: Automated exposure control (AEC) COMPARISON: CT 01/28/2024, 05/23/2023, 09/26/2022. RESULT: GI Tract: Ileocecectomy with ileocolonic anastomosis near the level of the right paramidline ventral pelvis. Small bowel: Multifocal skip strictures with mild mural hyperenhancement extending upstream from the level of the ileocolonic anastomosis (approximately 30 cm segment in total), with intermittent small bowel dilation up to 3.1 cm along the right lower ventral abdomen (3:85). Segments of skip stricturing range between 3 cm and 10-15 cm in length with luminal narrowing along the ventral lower abdominal wall, similar in severity and distribution to recent prior CT exams. Mild mural hyperenhancement likely reflects a component of superimposed active inflammation, also similar to most recent prior. The distal small bowel remains dilated upstream from the level of the start of stricturing measuring up to 6 cm, with increased caliber since recent prior and few intraluminal radiopaque pills noted within the dilated segment (3:114). Additionally, there is a matted appearance of small bowel segments near the start of the stricturing immediately adjacent to the dilated segment of distal small bowel, suspicious for mildly complex enteroenteric fistulae (3:105), however difficult to definitively defined due to decompressed segments of small bowel at this level. No associated perienteric or mesenteric abscess. Colon and Rectum: No mural hyperenhancement or wall thickening. Strictures/fistulae: As above Abscess: None Abdomen: Liver: Segment 2/3 cysts, similar to prior. No new or suspicious lesions. Biliary: No bile duct dilation. Gallbladder is unremarkable. Spleen: No mass. No splenomegaly. Pancreas: No mass or duct dilation. Adrenals: No mass. Kidneys: No suspicious renal lesions, calculus, or hydronephrosis. Right lower pole cyst and a few additional subcentimeter lesions too small to characterize but most likely benign. Lymph nodes: No abdominal or pelvic lymphadenopathy. Mesentery/Peritoneum: No ascites or organized collection. Vasculature: The celiac axis and SMA are patent. The portal vein and branches, splenic vein, SMV, and hepatic veins are patent. No abdominal aortic aneurysm. Pelvis: Partially decompressed urinary bladder is unremarkable. No organized intrapelvic collection. Bones/Soft Tissues: Degenerative changes. No suspicious or destructive osseous lesions. Lung Bases: 1.4 cm left lower lobe pulmonary nodular opacity with ill-defined borders and mild surrounding groundglass, new from prior and technically indeterminate, however possibly infectious/inflammatory (3:2). IMPRESSION IMPRESSION: MULTIFOCAL STRICTURING WITH IMAGING FINDINGS OF ACTIVE INFLAMMATION DISCONTINUOUSLY INVOLVING THE DISTAL/NEOTERMINAL ILEUM EXTENDING TO THE ILEOCOLONIC ANASTOMOSIS, SIMILAR IN DISTRIBUTION FROM 12/28/2023. PENETRATING DISEASE: MATTED APPEARANCE OF SMALL BOWEL NEAR THE START OF THE DISTAL SMALL BOWEL STRICTURING WITH MORPHOLOGY SUSPICIOUS FOR MILDLY COMPLEX ENTEROENTERIC FISTULAE, HOWEVER DIFFICULT TO DEFINITIVELY DEFINE DUE TO MATTED DECOMPRESSED SEGMENTS. SMALL BOWEL REMAINS PERSISTENTLY DILATED UP TO 6 CM UPSTREAM TO THE START OF STRICTURING WITH OVERALL CALIBER INCREASED FROM RECENT PRIOR. NO ABSCESS. 1.4 CM LEFT LOWER LOBE PULMONARY NODULAR OPACITY WITH ILL-DEFINED BORDERS AND MILD SURROUNDING GROUNDGLASS, NEW FROM PRIOR AND TECHNICALLY INDETERMINATE, HOWEVER POSSIBLY INFECTIOUS/INFLAMMATORY. Incidental Finding: Follow-up Acuity: Incidental Finding: Solid: >8 but <15 mm Routing Code: RI_1 Recommendation: Consult to Lung [facility]ule Clinic - [id number] Time Frame: at the discretion of the clinical team. Comments: Follow-up for this incidentally detected lung nodule with PET/CT or Biopsy within 4 weeks, or Chest CT exam in 3 months is recommended. --END OF FINDING-- COMMUNICATION:? Results will be communicated with the ordering provider via [email or web address] (more content not included)... [facility] Radiology Study observation (narrative) [facility] Creatinine + eGFR Pnl SerPlB ldon 06-27-2024 Creatinine and Glomerular filtration rate.predicted panel (S/P/Bld) 73 mL/min/1.73m??? Normal >=60 [facility] Comment on above: Order Comment: Speci men Type: BLOOD SPECIMEN Ordering Facility: [facility] Address: [address] [place] [address] Result Comment: Sabrina mated Glomerular Filtration Rate (eGFR) is calculated using the 2020 CKD-EPI creatinine equation. This equation utilizes serum creatinine, sex, and age as parameters. The creatinine assay has traceable calibration to isotope dilution-mass spectrometry. Refer to KDIGO guidelines for clinical interpretation. In patients with unstable renal function, e.g. those with acute kidney injury, the eGFR may not accurately reflect actual GFR. Performed By: #### K 1, 17232-3 #### [facility] CLIA [id number] [address] [place] [address] Creatinine and Glomerular fi ltration rate.predicted panel (S/P/Bld)on 06-27-2024 Creatinine [Mass/Vol] 1.13 mg/dL Normal 0.73-1.22 [facility] Comment on above: Order Comment: Speci men Type: BLOOD SPECIMEN Ordering Facility: [facility] Address: [address] [place] [address] Performed By: #### K 1, 79107-2 #### [facility] CLIA [id number] [address] [place] [address] POTASSIUMon 06-27-2024 Potassium [Moles/Vol] 3.9 mmol/L Normal 3.7-5.1 [facility] Comment on above: Order Comment: Speci men Type: BLOOD SPECIMEN Ordering Facility: [facility] Address: [address] [place] [address] Performed By: #### K 1, 15354-5 #### [facility] CLIA [id number] [address] [place] [address] CBC W Auto Differential pane l (Bld)on 06-19-2024 Basophils (Bld) [#/Vol] 0.07 10*3/uL Normal <0.11 [facility] Comment on above: Order Comment: Speci men Type: BLOOD SPECIMENOrdering Facility: [facility] Address: [address] [place] [address] Performed By: #### 5 7021-8 ####[facility] [id number] [place] [address] Basophils/100 WBC (Bld) 0.6 % Normal [facility] Comment on above: Order Comment: Speci men Type: BLOOD SPECIMENOrdering Facility: [facility] Address: [address] [place] [address] Performed By: #### 5 7021-8 ####[facility] [id number] [place] [address] Differential cell count method Nom (Bld) Auto Normal [facility] Comment on above: Order Comment: Speci men Type: BLOOD SPECIMENOrdering Facility: [facility] Address: [address] [place] [address] Performed By: #### 5 7021-8 ####[facility] [id number] [place] [address] Eosinophils (Bld) [#/Vol] 0.24 10*3/uL Normal <0.46 [facility] Comment on above: Order Comment: Speci men Type: BLOOD SPECIMENOrdering Facility: [facility] Address: [address] [place] [address] Performed By: #### 5 7021-8 ####[facility] [id number] [place] [address] Eosinophils/100 WBC (Bld) 2.1 % Normal [facility] Comment on above: Order Comment: Speci men Type: BLOOD SPECIMENOrdering Facility: [facility] Address: [address] [place] [address] Performed By: #### 5 7021-8 ####[facility] [id number] [place] [address] Erythrocyte distribution width (RBC) [Ratio] 13.0 % Normal 11.5-15.0 [facility] Comment on above: Order Comment: Speci men Type: BLOOD SPECIMENOrdering Facility: [facility] Address: [address] [place] [address] Performed By: #### 5 7021-8 ####[facility] [id number] [place] [address] Hematocrit (Bld) [Volume fraction] 41.5 % Normal 39.0-51.0 [facility] Comment on above: Order Comment: Speci men Type: BLOOD SPECIMENOrdering Facility: [facility] Address: [address] [place] [address] Performed By: #### 5 7021-8 ####[facility] [id number] [place] [address] Hemoglobin (Bld) [Mass/Vol] 14.1 g/dL Normal 13.0-17.0 [facility] Comment on above: Order Comment: Speci men Type: BLOOD SPECIMENOrdering Facility: [facility] Address: [address] [place] [address] Performed By: #### 5 7021-8 ####[facility] [id number] [place] [address] Immature granulocytes (Bld) [#/Vol] 0.15 10*3/uL High <0.10 [facility] Comment on above: Order Comment: Speci men Type: BLOOD SPECIMENOrdering Facility: [facility] Address: [address] [place] [address] Performed By: #### 5 7021-8 ####[facility] [id number] [place] [address] Immature granulocytes/100 WBC (Bld) 1.3 % Normal [facility] Comment on above: Order Comment: Speci men Type: BLOOD SPECIMENOrdering Facility: [facility] Address: [address] [place] [address] Performed By: #### 5 7021-8 ####[facility] [id number] [place] [address] Lymphocytes (Bld) [#/Vol] 2.09 10*3/uL Normal 1.00-4.00 [facility] Comment on above: Order Comment: Speci men Type: BLOOD SPECIMENOrdering Facility: [facility] Address: [address] [place] [address] Performed By: #### 5 7021-8 ####[facility] [id number] [place] [address] Lymphocytes/100 WBC (Bld) 18.7 % Normal [facility] Comment on above: Order Comment: Speci men Type: BLOOD SPECIMENOrdering Facility: [facility] Address: [address] [place] [address] Performed By: #### 5 7021-8 ####[facility] [id number] [place] [address] MCH (RBC) [Entitic mass] 29.6 pg Normal 26.0-34.0 [facility] Comment on above: Order Comment: Speci men Type: BLOOD SPECIMENOrdering Facility: [facility] Address: [address] [place] [address] Performed By: #### 5 7021-8 ####[facility] [id number] [place] [address] MCHC (RBC) [Mass/Vol] 34.0 g/dL Normal 30.5-36.0 [facility] Comment on above: Order Comment: Speci men Type: BLOOD SPECIMENOrdering Facility: [facility] Address: [address] [place] [address] Performed By: #### 5 7021-8 ####[facility] [id number] [place] [address] MCV (RBC) [Entitic vol] 87.0 fL Normal 80.0-100.0 [facility] Comment on above: Order Comment: Speci men Type: BLOOD SPECIMENOrdering Facility: [facility] Address: [address] [place] [address] Performed By: #### 5 7021-8 ####[facility] [id number] [place] [address] Monocytes (Bld) [#/Vol] 0.96 10*3/uL High <0.87 [facility] Comment on above: Order Comment: Speci men Type: BLOOD SPECIMENOrdering Facility: [facility] Address: [address] [place] [address] Performed By: #### 5 7021-8 ####[facility] [id number] [place] [address] Monocytes/100 WBC (Bld) 8.6 % Normal [facility] Comment on above: Order Comment: Speci men Type: BLOOD SPECIMENOrdering Facility: [facility] Address: [address] [place] [address] Performed By: #### 5 7021-8 ####[facility] [id number] [place] [address] Neutrophils (Bld) [#/Vol] 7.66 10*3/uL High 1.45-7.50 [facility] Comment on above: Order Comment: Speci men Type: BLOOD SPECIMENOrdering Facility: [facility] Address: [address] [place] [address] Performed By: #### 5 7021-8 ####[facility] [id number] [place] [address] Neutrophils/100 WBC (Bld) 68.7 % Normal [facility] Comment on above: Order Comment: Speci men Type: BLOOD SPECIMENOrdering Facility: [facility] Address: [address] [place] [address] Performed By: #### 5 7021-8 ####[facility] [id number] [place] [address] Nucleated RBC (Bld) [#/Vol] 10*3/uL Normal <0.01 [facility] Comment on above: Order Comment: Speci men Type: BLOOD SPECIMENOrdering Facility: [facility] Address: [address] [place] [address] Performed By: #### 5 7021-8 ####[facility] [id number] [place] [address] Nucleated RBC/100 WBC (Bld) [Ratio] 0.0 /100 WBC Normal [facility] Comment on above: Order Comment: Speci men Type: BLOOD SPECIMENOrdering Facility: [facility] Address: [address] [place] [address] Performed By: #### 5 7021-8 ####[facility] [id number] [place] [address] Platelet mean volume (Bld) [Entitic vol] 9.2 fL Normal 9.0-12.7 [facility] Comment on above: Order Comment: Speci men Type: BLOOD SPECIMENOrdering Facility: [facility] Address: [address] [place] [address] Performed By: #### 5 7021-8 ####[facility] [id number] [place] [address] Platelets (Bld) [#/Vol] 254 10*3/uL Normal 150-400 [facility] Comment on above: Order Comment: Speci men Type: BLOOD SPECIMENOrdering Facility: [facility] Address: [address] [place] [address] Performed By: #### 5 7021-8 ####[facility] [id number] [place] [address] RBC (Bld) [#/Vol] 4.77 10*6/uL Normal 4.20-6.00 [facility] Comment on above: Order Comment: Speci men Type: BLOOD SPECIMENOrdering Facility: [facility] Address: [address] [place] [address] Performed By: #### 5 7021-8 ####[facility] [id number] [place] [address] WBC (Bld) [#/Vol] 11.17 10*3/uL High 3.70-11.00 [facility] Comment on above: Order Comment: Speci men Type: BLOOD SPECIMENOrdering Facility: [facility] Address: [address] [place] [address] Performed By: #### 5 7021-8 ####[facility] [id number] [place] [address] Comprehensive metabolic 2000 panelon 06-19-2024 Albumin [Mass/Vol] 3.9 g/dL Normal 3.9-4.9 [facility] Comment on above: Order Comment: Speci men Type: BLOOD SPECIMENOrdering Facility: [facility] Address: [address] [place] [address] Performed By: #### 2 4323-8 ####[facility] [id number] [place] [address] ALP [Catalytic activity/Vol] 92 U/L Normal 38-113 [facility] Comment on above: Order Comment: Speci men Type: BLOOD SPECIMENOrdering Facility: [facility] Address: [address] [place] [address] Performed By: #### 2 4323-8 ####[facility] [id number] [place] [address] ALT [Catalytic activity/Vol] 19 U/L Normal 10-54 [facility] Comment on above: Order Comment: Speci men Type: BLOOD SPECIMENOrdering Facility: [facility] Address: [address] [place] [address] Performed By: #### 2 4323-8 ####[facility] [id number] [place] [address] Anion gap [Moles/Vol] 10 mmol/L Normal 8-15 [facility] Comment on above: Order Comment: Speci men Type: BLOOD SPECIMENOrdering Facility: [facility] Address: [address] [place] [address] Performed By: #### 2 4323-8 ####[facility] [id number] [place] [address] AST [Catalytic activity/Vol] 17 U/L Normal 14-40 [facility] Comment on above: Order Comment: Speci men Type: BLOOD SPECIMENOrdering Facility: [facility] Address: [address] [place] [address] Performed By: #### 2 4323-8 ####[facility] [id number] [place] [address] Bilirubin [Mass/Vol] 0.3 mg/dL Normal 0.2-1.3 [facility] Comment on above: Order Comment: Speci men Type: BLOOD SPECIMENOrdering Facility: [facility] Address: [address] [place] [address] Performed By: #### 2 4323-8 ####[facility] [id number] [place] [address] Calcium [Mass/Vol] 9.4 mg/dL Normal 8.5-10.2 [facility] Comment on above: Order Comment: Speci men Type: BLOOD SPECIMENOrdering Facility: [facility] Address: [address] [place] [address] Performed By: #### 2 4323-8 ####[facility] [id number] [place] [address] Chloride [Moles/Vol] 108 mmol/L High 98-107 [facility] Comment on above: Order Comment: Speci men Type: BLOOD SPECIMENOrdering Facility: [facility] Address: [address] [place] [address] Performed By: #### 2 4323-8 ####[facility] [id number] [place] [address] CO2 [Moles/Vol] 22 mmol/L Normal 22-30 [facility] Comment on above: Order Comment: Speci men Type: BLOOD SPECIMENOrdering Facility: [facility] Address: [address] [place] [address] Performed By: #### 2 4323-8 ####[facility] [id number] [place] [place] [address] Creatinine [Mass/Vol] 1.08 mg/dL Normal 0.73-1.22 [facility] Comment on above: Order Comment: Speci men Type: BLOOD SPECIMENOrdering Facility: [facility] Address: [address] [place] [address] Performed By: #### 2 4323-8 ####[facility] LABCLIA [id number] [place] [address] Creatinine and Glomerular filtration rate.predicted panel (S/P/Bld) 78 mL/min/1.73m??? Normal >=60 [facility] Comment on above: Order Comment: Speci men Type: BLOOD SPECIMENOrdering Facility: [facility] Address: [address] [place] [address] Result Comment: Sabrina mated Glomerular Filtration Rate (eGFR) is calculated using the 2020 CKD-EPI creatinine equation. This equation utilizes serum creatinine, sex, and age as parameters. The creatinine assay has traceable calibration to isotope dilution-mass spectrometry. Refer to KDIGO guidelines for clinical interpretation. In patients with unstable renal function, e.g. those with acute kidney injury, the eGFR may not accurately reflect actual GFR. Performed By: #### 2 4323-8 ####[facility] LABCLIA [id number] [place] [address] Glucose [Mass/Vol] 95 mg/dL Normal 74-99 [facility] Comment on above: Order Comment: Speci men Type: BLOOD SPECIMENOrdering Facility: [facility] Address: [address] [place] [address] Result Comment: The [place] Diabetes Association (ADA) provides guidance for cutoff [...] Standards of Medical Care in Diabetes 2016, [place] [employer]. Diabetes Care. 2016.39(Suppl 1). Performed By: #### 2 4323-8 ####[facility] LABCLIA [id number] [place] [address] Potassium [Moles/Vol] 3.5 mmol/L Low 3.7-5.1 [facility] Comment on above: Order Comment: Speci men Type: BLOOD SPECIMENOrdering Facility: [facility] Address: [address] [place] [address] Performed By: #### 2 4323-8 ####[facility] LABCLIA [id number] [place] [address] Protein [Mass/Vol] 6.2 g/dL Low 6.3-8.0 [facility] Comment on above: Order Comment: Speci men Type: BLOOD SPECIMENOrdering Facility: [facility] Address: [address] [place] [address] Performed By: #### 2 4323-8 ####[facility] LABCLIA [id number] [place] [address] Sodium [Moles/Vol] 140 mmol/L Normal 136-144 [facility] Comment on above: Order Comment: Speci men Type: BLOOD SPECIMENOrdering Facility: [facility] Address: [address] [place] [address] Performed By: #### 2 4323-8 ####[facility] LABCLIA [id number] [place] [address] Urea nitrogen [Mass/Vol] 10 mg/dL Normal 9-24 [facility] Comment on above: Order Comment: Speci men Type: BLOOD SPECIMENOrdering Facility: [facility] Address: [address] [place] [address] Performed By: #### 2 4323-8 ####[facility] LABCLIA [id number] [place] [address] No Panel Informationon 05-14 Type of biopsy: tangential Informed consent: discussed and consent obtained Informed consent comment: The risks and benefits of the biopsy were discussed. Risks include but are not limited to bleeding, infection, scarring, pain, and nerve damage. An opportunity to ask questions prior to the procedure was permitted and all questions were answered. Patient was prepped and draped in usual sterile fashion: area cleansed with alcohol. Anesthesia: the lesion was anesthetized in a standard fashion Anesthetic: 1% lidocaine w/ epinephrine 1-100,000 buffered w/ 8.4% NaHCO3 Instrument used: DermaBlade Hemostasis achieved with: electrodesiccation Outcome: patient tolerated procedure well Outcome comment: The specimen was placed in a prelabeled formalin container to be sent for pathology Post-procedure details: sterile dressing applied and wound care instructions given Post-procedure details comment: Emphasized need to contact clinic for any signs of infection, uncontrollable bleeding, or complications. Dressing type: bandage Additional details: Photo taken Amount of lidocaine used: 1.0 cc [facility] CBC W Auto Differential pane l (Bld)on 04-15-2024 Basophils (Bld) [#/Vol] 0.11 10*3/uL High <0.11 [facility] Comment on above: Order Comment: Speci men Type: BLOOD SPECIMENOrdering Facility: [facility] Address: [address] [place] [address] Performed By: #### 5 7021-8 ####[facility] LABIA [id number] [place] [address] Basophils/100 WBC (Bld) 0.8 % Normal [facility] Comment on above: Order Comment: Speci men Type: BLOOD SPECIMENOrdering Facility: [facility] Address: [address] [place] [address] Performed By: #### 5 7021-8 ####[facility] LABCLIA [id number] [place] [address] Differential cell count method Nom (Bld) Auto Normal [facility] Comment on above: Order Comment: Speci men Type: BLOOD SPECIMENOrdering Facility: [facility] Address: [address] [place] [address] Performed By: #### 5 7021-8 ####[facility] LABCLIA [id number] [place] [address] Eosinophils (Bld) [#/Vol] 0.27 10*3/uL Normal <0.46 [facility] Comment on above: Order Comment: Speci men Type: BLOOD SPECIMENOrdering Facility: [facility] Address: [address] [place] [address] Performed By: #### 5 7021-8 ####[facility] LABCLIA [id number] [place] [address] Eosinophils/100 WBC (Bld) 2.0 % Normal [facility] Comment on above: Order Comment: Speci men Type: BLOOD SPECIMENOrdering Facility: [facility] Address: [address] [place] [address] Performed By: #### 5 7021-8 ####[facility] LABCLIA [id number] [place] [address] Erythrocyte distribution width (RBC) [Ratio] 13.9 % Normal 11.5-15.0 [facility] Comment on above: Order Comment: Speci men Type: BLOOD SPECIMENOrdering Facility: [facility] Address: [address] [place] [address] Performed By: #### 5 7021-8 ####[facility] LABCLIA [id number] [place] [address] Hematocrit (Bld) [Volume fraction] 39.2 % Normal 39.0-51.0 [facility] Comment on above: Order Comment: Speci men Type: BLOOD SPECIMENOrdering Facility: [facility] Address: [address] [place] [address] Performed By: #### 5 7021-8 ####[facility] LABCLIA [id number] [place] [address] Hemoglobin (Bld) [Mass/Vol] 13.6 g/dL Normal 13.0-17.0 [facility] Comment on above: Order Comment: Speci men Type: BLOOD SPECIMENOrdering Facility: [facility] Address: [address] [place] [address] Performed By: #### 5 7021-8 ####[facility] LABCLIA [id number] [place] [address] Immature granulocytes (Bld) [#/Vol] 0.32 10*3/uL High <0.10 [facility] Comment on above: Order Comment: Speci men Type: BLOOD SPECIMENOrdering Facility: [facility] Address: [address] [place] [address] Performed By: #### 5 7021-8 ####[facility] LABCLIA [id number] [place] [address] Immature granulocytes/100 WBC (Bld) 2.4 % Normal [facility] Comment on above: Order Comment: Speci men Type: BLOOD SPECIMENOrdering Facility: [facility] Address: [address] [place] [address] Performed By: #### 5 7021-8 ####[facility] LABCLIA [id number] [place] [address] Lymphocytes (Bld) [#/Vol] 2.41 10*3/uL Normal 1.00-4.00 [facility] Comment on above: Order Comment: Speci men Type: BLOOD SPECIMENOrdering Facility: [facility] Address: [address] [place] [address] Performed By: #### 5 7021-8 ####[facility] LABCLIA [id number] [place] [address] Lymphocytes/100 WBC (Bld) 18.1 % Normal [facility] Comment on above: Order Comment: Speci men Type: BLOOD SPECIMENOrdering Facility: [facility] Address: [address] [place] [address] Performed By: #### 5 7021-8 ####[facility] LABCLIA [id number] [place] [address] MCH (RBC) [Entitic mass] 29.8 pg Normal 26.0-34.0 [facility] Comment on above: Order Comment: Speci men Type: BLOOD SPECIMENOrdering Facility: [facility] Address: [address] [place] [address] Performed By: #### 5 7021-8 ####[facility] LABCLIA [id number] [place] [address] MCHC (RBC) [Mass/Vol] 34.7 g/dL Normal 30.5-36.0 [facility] Comment on above: Order Comment: Speci men Type: BLOOD SPECIMENOrdering Facility: [facility] Address: [address] [place] [address] Performed By: #### 5 7021-8 ####[facility] LABCLIA [id number] [place] [address] MCV (RBC) [Entitic vol] 85.8 fL Normal 80.0-100.0 [facility] Comment on above: Order Comment: Speci men Type: BLOOD SPECIMENOrdering Facility: [facility] Address: [address] [place] [address] Performed By: #### 5 7021-8 ####[facility] LABIA [id number] [place] [address] Monocytes (Bld) [#/Vol] 1.02 10*3/uL High <0.87 [facility] Comment on above: Order Comment: Speci men Type: BLOOD SPECIMENOrdering Facility: [facility] Address: [address] [place] [address] Performed By: #### 5 7021-8 ####[facility] LABCLIA [id number] [place] [address] Monocytes/100 WBC (Bld) 7.7 % Normal [facility] Comment on above: Order Comment: Speci men Type: BLOOD SPECIMENOrdering Facility: [facility] Address: [address] [place] [address] Performed By: #### 5 7021-8 ####[facility] LABCLIA [id number] [place] [address] Neutrophils (Bld) [#/Vol] 9.20 10*3/uL High 1.45-7.50 [facility] Comment on above: Order Comment: Speci men Type: BLOOD SPECIMENOrdering Facility: [facility] Address: [address] [place] [address] Performed By: #### 5 7021-8 ####[facility] LABCLIA [id number] [place] [address] Neutrophils/100 WBC (Bld) 69.0 % Normal [facility] Comment on above: Order Comment: Speci men Type: BLOOD SPECIMENOrdering Facility: [facility] Address: [address] [place] [address] Performed By: #### 5 7021-8 ####[facility] LABCLIA [id number] [place] [address] Nucleated RBC (Bld) [#/Vol] 10*3/uL Normal <0.01 [facility] Comment on above: Order Comment: Speci men Type: BLOOD SPECIMENOrdering Facility: [facility] Address: [address] [place] [address] Performed By: #### 5 7021-8 ####[facility] LABCLIA [id number] [place] [address] Nucleated RBC/100 WBC (Bld) [Ratio] 0.0 /100 WBC Normal [facility] Comment on above: Order Comment: Speci men Type: BLOOD SPECIMENOrdering Facility: [facility] Address: [address] [place] [address] Performed By: #### 5 7021-8 ####[facility] LABCLIA [id number] [place] [address] Platelet mean volume (Bld) [Entitic vol] 9.6 fL Normal 9.0-12.7 [facility] Comment on above: Order Comment: Speci men Type: BLOOD SPECIMENOrdering Facility: [facility] Address: [address] [place] [address] Performed By: #### 5 7021-8 ####[facility] LABCLIA [id number] [place] [address] Platelets (Bld) [#/Vol] 258 10*3/uL Normal 150-400 [facility] Comment on above: Order Comment: Speci men Type: BLOOD SPECIMENOrdering Facility: [facility] Address: [address] [place] [address] Performed By: #### 5 7021-8 ####[facility] LABCLIA [id number] [place] [address] RBC (Bld) [#/Vol] 4.57 10*6/uL Normal 4.20-6.00 [facility] Comment on above: Order Comment: Speci men Type: BLOOD SPECIMENOrdering Facility: [facility] Address: [address] [place] [address] Performed By: #### 5 7021-8 ####[facility] LABCLIA [id number] [place] [address] WBC (Bld) [#/Vol] 13.33 10*3/uL High 3.70-11.00 [facility] Comment on above: Order Comment: Speci men Type: BLOOD SPECIMENOrdering Facility: [facility] Address: [address] [place] [address] Performed By: #### 5 7021-8 ####[facility] LABCLIA [id number] [place] [address] CRP SerPl-mCncon 04-15-2024 CRP [Mass/Vol] mg/L Normal <0.9 [facility] Comment on above: Order Comment: Speci men Type: BLOOD SPECIMENOrdering Facility: [facility] Address: [address] [place] [address] Performed By: #### 2 4323-8 ####[facility] LABCLIA [id number] [place] [address]#### 1987-07 ####[facility] LABCLIA [id number] [address] [facility] Comprehensive metabolic 2000 panelon 04-15-2024 Albumin [Mass/Vol] 3.9 g/dL Normal 3.9-4.9 [facility] Comment on above: Order Comment: Speci men Type: BLOOD SPECIMENOrdering Facility: [facility] Address: [address] [place], [place] [address] Performed By: #### 2 4323-8 ####[facility] LABCLIA [id number] [place] [address]#### 1987-07 ####[facility] LABCLIA [id number] [place] [id number] [place] ALP [Catalytic activity/Vol] 88 U/L Normal 38-113 [facility] Comment on above: Order Comment: Speci men Type: BLOOD SPECIMENOrdering Facility: [facility] Address: [address] [place] [address] Performed By: #### 2 4323-8 ####[facility] LABCLIA [id number] [place] [address]#### 1987-07 ####[facility] LABCLIA [id number] [address] [address] [place] ALT [Catalytic activity/Vol] 23 U/L Normal 10-54 [facility] Comment on above: Order Comment: Speci men Type: BLOOD SPECIMENOrdering Facility: [facility] Address: [address] [place] [address] Performed By: #### 2 4323-8 ####[facility] LABCLIA [id number] [place] [address]#### 1987-07 ####[facility] LABCLIA [id number] [place] [address] [place] Anion gap [Moles/Vol] 10 mmol/L Normal 8-15 [facility] Comment on above: Order Comment: Speci men Type: BLOOD SPECIMENOrdering Facility: [facility] Address: [address] [place] [address] Performed By: #### 2 4323-8 ####[facility] LABCLIA [id number] [place] [address]#### 1987-07 ####[facility] LABCLIA [id number] [place] [address] [place] AST [Catalytic activity/Vol] 18 U/L Normal 14-40 [facility] Comment on above: Order Comment: Speci men Type: BLOOD SPECIMENOrdering Facility: [facility] Address: [address] [place] [address] Performed By: #### 2 4323-8 ####[facility] LABCLIA [id number] [place] [address]#### 1987-07 ####[facility] LABCLIA [id number] [place] [id number] [place] Bilirubin [Mass/Vol] 0.3 mg/dL Normal 0.2-1.3 [facility] Comment on above: Order Comment: Speci men Type: BLOOD SPECIMENOrdering Facility: [facility] Address: [address] [place] [address] Performed By: #### 2 4323-8 ####[facility] LABCLIA [id number] [place] [address]#### 1987-07 ####[facility] LABCLIA [id number] [address] [address] [place] Calcium [Mass/Vol] 9.5 mg/dL Normal 8.5-10.2 [facility] Comment on above: Order Comment: Speci men Type: BLOOD SPECIMENOrdering Facility: [facility] Address: [address] [place] [address] Performed By: #### 2 432-8 ####[facility] LABCLIA [id number] [place] [address]#### 1987-07 ####[facility] LABCLIA [id number] [place] [address] [place] Chloride [Moles/Vol] 106 mmol/L Normal 98-107 [facility] Comment on above: Order Comment: Speci men Type: BLOOD SPECIMENOrdering Facility: [facility] Address: [address] [place] [address] Performed By: #### 2 4323-8 ####[facility] LABCLIA [id number] [place] [id number]#### 1987-07 ####[facility] LABCLIA [id number] [place] [address] [place] CO2 [Moles/Vol] 23 mmol/L Normal 22-30 [facility] Comment on above: Order Comment: Speci men Type: BLOOD SPECIMENOrdering Facility: [facility] Address: [address] [place] [address] Performed By: #### 2 4323-8 ####[facility] LABCLIA [id number] [place] [id number]#### 1987-07 ####[facility] LABCLIA [id number] [place] [address] [place] Creatinine [Mass/Vol] 1.15 mg/dL Normal 0.73-1.22 [facility] Comment on above: Order Comment: Speci men Type: BLOOD SPECIMENOrdering Facility: [facility] Address: [address] [place] [address] Performed By: #### 2 4323-8 ####[facility] LABCLIA [id number] [place] [address]#### 1985-07 ####[facility] LABIA [id number] [place] [address] [place] Creatinine and Glomerular filtration rate.predicted panel (S/P/Bld) 72 mL/min/1.73m??? Normal >=60 [facility] Comment on above: Order Comment: Speci men Type: BLOOD SPECIMENOrdering Facility: [facility] Address: [address] [place] [address] Result Comment: Sabrina mated Glomerular Filtration Rate (eGFR) is calculated using the 2020 CKD-EPI creatinine equation. This equation utilizes serum creatinine, sex, and age as parameters. The creatinine assay has traceable calibration to isotope dilution-mass spectrometry. Refer to KDIGO guidelines for clinical interpretation. In patients with unstable renal function, e.g. those with acute kidney injury, the eGFR may not accurately reflect actual GFR. Performed By: #### 2 4323-8 ####[facility] LABCLIA [id number] [place] [address]#### 1987-07 ####[facility] LABCLIA [id number] [place] [address] [place] Glucose [Mass/Vol] 88 mg/dL Normal 74-99 [facility] Comment on above: Order Comment: Speci men Type: BLOOD SPECIMENOrdering Facility: [facility] Address: [address] [place] [address] Result Comment: The [place] [employer] (ADA) provides guidance for cutoff [...] Standards of Medical Care in Diabetes 2016, [place] [employer]. Diabetes Care. 2016.39(Suppl 1). Performed By: #### 2 4323-8 ####[facility] LABCLIA [id number] [place] [address]#### 1987-07 ####[facility] LABCLIA [id number] [place] [address] [place] Potassium [Moles/Vol] 4.0 mmol/L Normal 3.7-5.1 [facility] Comment on above: Order Comment: Speci men Type: BLOOD SPECIMENOrdering Facility: [facility] Address: [address] [place] [address] Performed By: #### 2 432[address] ####[facility] LABCLIA [id number] [place] [address]#### 1987-07 ####[facility] LABCLIA [id number] [place] [address] [place] Protein [Mass/Vol] 6.1 g/dL Low 6.3-8.0 [facility] Comment on above: Order Comment: Speci men Type: BLOOD SPECIMENOrdering Facility: [facility] Address: [address] [place] [address] Performed By: #### 2 4323-8 ####[facility] LABCLIA [id number] [place] [address]#### 1987-07 ####[facility] LABCLIA [id number] [place] [id number] [place] Sodium [Moles/Vol] 139 mmol/L Normal 136-144 [facility] Comment on above: Order Comment: Speci men Type: BLOOD SPECIMENOrdering Facility: [facility] Address: [address] [place] [address] Performed By: #### 2 4323-8 ####[facility] LABCLIA [id number] [place] [address]#### 1987-07 ####[facility] LABCLIA [id number] [place] [address] [place] Urea nitrogen [Mass/Vol] 10 mg/dL Normal 9-24 [facility] Comment on above: Order Comment: Speci men Type: BLOOD SPECIMENOrdering Facility: [facility] Address: [address] [place] [address] Performed By: #### 2 4323-8 ####[facility] LABCLIA [id number] [place] [address]#### 1985-07 ####[facility] LABCLIA [id number] [place] [id number] [place] No Panel Informationon 04-11 Type of biopsy: tangential Informed consent: discussed and consent obtained Informed consent comment: The risks and benefits of the biopsy were discussed. Risks include but are not limited to bleeding, infection, scarring, pain, and nerve damage. An opportunity to ask questions prior to the procedure was permitted and all questions were answered. Patient was prepped and draped in usual sterile fashion: area cleansed with alcohol. Anesthesia: the lesion was anesthetized in a standard fashion Anesthetic: 1% lidocaine w/ epinephrine 1-100,000 buffered w/ 8.4% NaHCO3 Instrument used: DermaBlade Hemostasis achieved with: electrodesiccation Outcome: patient tolerated procedure well Outcome comment: The specimen was placed in a prelabeled formalin container to be sent for pathology Post-procedure details: sterile dressing applied and wound care instructions given Post-procedure details comment: Emphasized need to contact clinic for any signs of infection, uncontrollable bleeding, or complications. Dressing type: bandage Additional details: Photo taken yes Amount of lidocaine used: 1.0 cc [facility] Type of biopsy: tangential Informed consent: discussed and consent obtained Informed consent comment: The risks and benefits of the biopsy were discussed. Risks include but are not limited to bleeding, infection, scarring, pain, and nerve damage. An opportunity to ask questions prior to the procedure was permitted and all questions were answered. Patient was prepped and draped in usual sterile fashion: area cleansed with alcohol. Anesthesia: the lesion was anesthetized in a standard fashion Anesthetic: 1% lidocaine w/ epinephrine 1-100,000 buffered w/ 8.4% NaHCO3 Instrument used: DermaBlade Hemostasis achieved with: electrodesiccation Outcome: patient tolerated procedure well Outcome comment: The specimen was placed in a prelabeled formalin container to be sent for pathology Post-procedure details: sterile dressing applied and wound care instructions given Post-procedure details comment: Emphasized need to contact clinic for any signs of infection, uncontrollable bleeding, or complications. Dressing type: bandage Additional details: Photo taken yes Amount of lidocaine used: 1.0 cc [facility] No Panel Informationon 02-27 [facility] CBC W Auto Differential pane l (Bld)on 02-19-2024 Basophils (Bld) [#/Vol] 0.07 10*3/uL Normal <0.11 [facility] Comment on above: Order Comment: Speci men Type: BLOOD SPECIMENOrdering Facility: [facility] Address: [address] [place] [address] Performed By: #### 5 7021-8 ####[facility] LABCLIA [id number] [place] [address] Basophils/100 WBC (Bld) 0.7 % Normal [facility] Comment on above: Order Comment: Speci men Type: BLOOD SPECIMENOrdering Facility: [facility] Address: [address] [place] [address] Performed By: #### 5 7021-8 ####[facility] LABCLIA [id number] [place] [address] Differential cell count method Nom (Bld) Auto Normal [facility] Comment on above: Order Comment: Speci men Type: BLOOD SPECIMENOrdering Facility: [facility] Address: [address] [place] [address] Performed By: #### 5 7021-8 ####[facility] LABCLIA [id number] [place] [address] Eosinophils (Bld) [#/Vol] 0.20 10*3/uL Normal <0.46 [facility] Comment on above: Order Comment: Speci men Type: BLOOD SPECIMENOrdering Facility: [facility] Address: [address] [place] [address] Performed By: #### 5 7021-8 ####[facility] LABCLIA [id number] [place] [address] Eosinophils/100 WBC (Bld) 2.1 % Normal [facility] Comment on above: Order Comment: Speci men Type: BLOOD SPECIMENOrdering Facility: [facility] Address: [address] [place] [address] Performed By: #### 5 7021-8 ####[facility] LABCLIA [id number] [place] [address] Erythrocyte distribution width (RBC) [Ratio] 13.1 % Normal 11.5-15.0 [facility] Comment on above: Order Comment: Speci men Type: BLOOD SPECIMENOrdering Facility: [facility] Address: [address] [place] [address] Performed By: #### 5 7021-8 ####[facility] LABCLIA [id number] [place] [address] Hematocrit (Bld) [Volume fraction] 43.8 % Normal 39.0-51.0 [facility] Comment on above: Order Comment: Speci men Type: BLOOD SPECIMENOrdering Facility: [facility] Address: [address] [place] [address] Performed By: #### 5 7021-8 ####[facility] LABIA [id number] [place] [address] Hemoglobin (Bld) [Mass/Vol] 14.9 g/dL Normal 13.0-17.0 [facility] Comment on above: Order Comment: Speci men Type: BLOOD SPECIMENOrdering Facility: [facility] Address: [address] [place] [address] Performed By: #### 5 7021-8 ####[facility] LABCLIA [id number] [place] [address] Immature granulocytes (Bld) [#/Vol] 0.10 10*3/uL High <0.10 [facility] Comment on above: Order Comment: Speci men Type: BLOOD SPECIMENOrdering Facility: [facility] Address: [address] [place] [address] Performed By: #### 5 7021-8 ####[facility] LABIA [id number] [place] [address] Immature granulocytes/100 WBC (Bld) 1.0 % Normal [facility] Comment on above: Order Comment: Speci men Type: BLOOD SPECIMENOrdering Facility: [facility] Address: [address] [place] [address] Performed By: #### 5 7021-8 ####[facility] LABCLIA [id number] [place] [address] Lymphocytes (Bld) [#/Vol] 1.92 10*3/uL Normal 1.00-4.00 [facility] Comment on above: Order Comment: Speci men Type: BLOOD SPECIMENOrdering Facility: [facility] Address: [address] [place] [address] Performed By: #### 5 7021-8 ####[facility] LABCLIA [id number] [place] [address] Lymphocytes/100 WBC (Bld) 19.9 % Normal [facility] Comment on above: Order Comment: Speci men Type: BLOOD SPECIMENOrdering Facility: [facility] Address: [address] [place] [address] Performed By: #### 5 7021-8 ####[facility] LABCLIA [id number] [place] [address] MCH (RBC) [Entitic mass] 30.2 pg Normal 26.0-34.0 [facility] Comment on above: Order Comment: Speci men Type: BLOOD SPECIMENOrdering Facility: [facility] Address: [address] [place] [address] Performed By: #### 5 7021-8 ####[facility] LABCLIA [id number] [place] [address] MCHC (RBC) [Mass/Vol] 34.0 g/dL Normal 30.5-36.0 [facility] Comment on above: Order Comment: Speci men Type: BLOOD SPECIMENOrdering Facility: [facility] Address: [address] [place] [address] Performed By: #### 5 7021-8 ####[facility] LABCLIA [id number] [place] [address] MCV (RBC) [Entitic vol] 88.8 fL Normal 80.0-100.0 [facility] Comment on above: Order Comment: Speci men Type: BLOOD SPECIMENOrdering Facility: [facility] Address: [address] [place] [address] Performed By: #### 5 7021-8 ####[facility] LABCLIA [id number] [place] [address] Monocytes (Bld) [#/Vol] 0.93 10*3/uL High <0.87 [facility] Comment on above: Order Comment: Speci men Type: BLOOD SPECIMENOrdering Facility: [facility] Address: [address] [place], [place] [address] Performed By: #### 5 7021-8 ####[facility] LABCLIA [id number] [place] [address] Monocytes/100 WBC (Bld) 9.6 % Normal [facility] Comment on above: Order Comment: Speci men Type: BLOOD SPECIMENOrdering Facility: [facility] Address: [address] [place] [address] Performed By: #### 5 7021-8 ####[facility] LABCLIA [id number] [place] [address] Neutrophils (Bld) [#/Vol] 6.43 10*3/uL Normal 1.45-7.50 [facility] Comment on above: Order Comment: Speci men Type: BLOOD SPECIMENOrdering Facility: [facility] Address: [address] [place] [address] Performed By: #### 5 7021-8 ####[facility] LABCLIA [id number] [place] [address] Neutrophils/100 WBC (Bld) 66.7 % Normal [facility] Comment on above: Order Comment: Speci men Type: BLOOD SPECIMENOrdering Facility: [facility] Address: [address] [place] [address] Performed By: #### 5 7021-8 ####[facility] LABCLIA [id number] [place] [address] Nucleated RBC (Bld) [#/Vol] 10*3/uL Normal <0.01 [facility] Comment on above: Order Comment: Speci men Type: BLOOD SPECIMENOrdering Facility: [facility] Address: [address] [place] [address] Performed By: #### 5 7021-8 ####[facility] LABCLIA [id number] [place] [address] Nucleated RBC/100 WBC (Bld) [Ratio] 0.0 /100 WBC Normal [facility] Comment on above: Order Comment: Speci men Type: BLOOD SPECIMENOrdering Facility: [facility] Address: [address] [place] [address] Performed By: #### 5 7021-8 ####[facility] LABCLIA [id number] [place] [address] Platelet mean volume (Bld) [Entitic vol] 9.4 fL Normal 9.0-12.7 [facility] Comment on above: Order Comment: Speci men Type: BLOOD SPECIMENOrdering Facility: [facility] Address: [address] [place] [address] Performed By: #### 5 7021-8 ####[facility] LABCLIA [id number] [place] [address] Platelets (Bld) [#/Vol] 212 10*3/uL Normal 150-400 [facility] Comment on above: Order Comment: Speci men Type: BLOOD SPECIMENOrdering Facility: [facility] Address: [address] [place] [address] Performed By: #### 5 7021-8 ####[facility] LABIA [id number] [place] [address] RBC (Bld) [#/Vol] 4.93 10*6/uL Normal 4.20-6.00 [facility] Comment on above: Order Comment: Speci men Type: BLOOD SPECIMENOrdering Facility: [facility] Address: [address] [place] [address] Performed By: #### 5 7021-8 ####[facility] LABCLIA [id number] [place] [address] WBC (Bld) [#/Vol] 9.65 10*3/uL Normal 3.70-11.00 [facility] Comment on above: Order Comment: Speci men Type: BLOOD SPECIMENOrdering Facility: [facility] Address: [address] [place] [address] Performed By: #### 5 7021-8 ####[facility] LABCLIA [id number] [place] [address] Comprehensive metabolic 2000 panelon 02-19-2024 Albumin [Mass/Vol] 4.0 g/dL Normal 3.9-4.9 [facility] Comment on above: Order Comment: Speci men Type: BLOOD SPECIMENOrdering Facility: [facility] Address: [address] [place] [address] Performed By: #### 2 4323-8 ####[facility] LABCLIA [id number] [place] [address] [place] ALP [Catalytic activity/Vol] 86 U/L Normal 38-113 [facility] Comment on above: Order Comment: Speci men Type: BLOOD SPECIMENOrdering Facility: [facility] Address: [address] [place] [address] Performed By: #### 2 4323-8 ####[facility] LABCLIA [id number] [place] [address] [place] ALT [Catalytic activity/Vol] 26 U/L Normal 10-54 [facility] Comment on above: Order Comment: Speci men Type: BLOOD SPECIMENOrdering Facility: [facility] Address: [address] [place] [address] Performed By: #### 2 4323-8 ####[facility] LABCLIA [id number] [place] [address] [place] Anion gap [Moles/Vol] 12 mmol/L Normal 8-15 [facility] Comment on above: Order Comment: Speci men Type: BLOOD SPECIMENOrdering Facility: [facility] Address: [address] [place] [address] Performed By: #### 2 4323-8 ####[facility] LABCLIA [id number] [place] [id number] [place] AST [Catalytic activity/Vol] 23 U/L Normal 14-40 [facility] Comment on above: Order Comment: Speci men Type: BLOOD SPECIMENOrdering Facility: [facility] Address: [address] [place] [id number] Performed By: #### 2 4323-8 ####[facility] LABCLIA [id number] [address] [address] [place] Bilirubin [Mass/Vol] 0.4 mg/dL Normal 0.2-1.3 [facility] Comment on above: Order Comment: Speci men Type: BLOOD SPECIMENOrdering Facility: [facility] Address: [address] [place] [address] Performed By: #### 2 4323-8 ####[facility] LABCLIA [id number] [place] [address] [place] Calcium [Mass/Vol] 9.6 mg/dL Normal 8.5-10.2 [facility] Comment on above: Order Comment: Speci men Type: BLOOD SPECIMENOrdering Facility: [facility] Address: [address] [place], [place] [address] Performed By: #### 2 4323-8 ####[facility] LABCLIA [id number] [place] [address] [place] Chloride [Moles/Vol] 107 mmol/L Normal 98-107 [facility] Comment on above: Order Comment: Speci men Type: BLOOD SPECIMENOrdering Facility: [facility] Address: [address] [place] [address] Performed By: #### 2 4323-8 ####[facility] LABCLIA [id number] [place] [address] [place] CO2 [Moles/Vol] 23 mmol/L Normal 22-30 [facility] Comment on above: Order Comment: Speci men Type: BLOOD SPECIMENOrdering Facility: [facility] Address: [address] [place], [place] [address] Performed By: #### 2 4323-8 ####[facility] LABCLIA [id number] [address] [address] [place] Creatinine [Mass/Vol] 1.14 mg/dL Normal 0.73-1.22 [facility] Comment on above: Order Comment: Brittany kern Type: BLOOD SPECIMENOrdering Facility: [facility] Address: [address] [place] [address] Performed By: #### 2 4323-8 ####[facility] LABIA [id number] [place] [address] [place] Creatinine and Glomerular filtration rate.predicted panel (S/P/Bld) 73 mL/min/1.73m??? Normal >=60 [facility] Comment on above: Order Comment: Brittany kern Type: BLOOD SPECIMENOrdering Facility: [facility] Address: [address] [place] [address] Result Comment: Sabrina mated Glomerular Filtration Rate (eGFR) is calculated using the 2020 CKD-EPI creatinine equation. This equation utilizes serum creatinine, sex, and age as parameters. The creatinine assay has traceable calibration to isotope dilution-mass spectrometry. Refer to KDIGO guidelines for clinical interpretation. In patients with unstable renal function, e.g. those with acute kidney injury, the eGFR may not accurately reflect actual GFR. Performed By: #### 2 4323-8 ####[facility] LABIA [id number] [place] [address] [place] Glucose [Mass/Vol] 90 mg/dL Normal 74-99 [facility] Comment on above: Order Comment: Brittany kern Type: BLOOD SPECIMENOrdering Facility: [facility] Address: [address] [place] [address] Result Comment: The [place] Diabetes Association (ADA) provides guidance for cutoff [...] Standards of Medical Care in Diabetes 2016, [place] [employer]. Diabetes Care. 2016.39(Suppl 1). Performed By: #### 2 4323-8 ####[facility] LABCLIA [id number] [place] [address] [place] Potassium [Moles/Vol] 3.9 mmol/L Normal 3.7-5.1 [facility] Comment on above: Order Comment: Speci men Type: BLOOD SPECIMENOrdering Facility: [facility] Address: [address] [place] [address] Performed By: #### 2 4323-8 ####[facility] LABCLIA [id number] [place] [address] [place] Protein [Mass/Vol] 6.5 g/dL Normal 6.3-8.0 [facility] Comment on above: Order Comment: Speci men Type: BLOOD SPECIMENOrdering Facility: [facility] Address: [address] [place] [address] Performed By: #### 2 4323-8 ####[facility] LABCLIA [id number] [place] [address] [place] Sodium [Moles/Vol] 142 mmol/L Normal 136-144 [facility] Comment on above: Order Comment: Speci men Type: BLOOD SPECIMENOrdering Facility: [facility] Address: [address] [place] [address] Performed By: #### 2 4323-8 ####[facility] LABCLIA [id number] [place] [id number] [place] Urea nitrogen [Mass/Vol] 11 mg/dL Normal 9-24 [facility] Comment on above: Order Comment: Speci men Type: BLOOD SPECIMENOrdering Facility: [facility] Address: [address] [place], [place] [address] Performed By: #### 2 4323-8 ####[facility] [place] [id number] [id number] [id number] [place] No Panel Informationon 01-31 [facility] 01-26-2024 CNPN Telephone (CARD [facility]) -------- VANDANA CARRENOGopi Colon ([id number]) 1960 M [facility] Date Time Provider Department 01/26/24 DAMIR WITT CARD [facility] During your visit today, we recorded the following information about you: Elen Yang RPh 01/26/2024 11:12 AM Signed [facility] received prescription(s) for rosuvastatin from Dr. Damir Witt's office. Unfortunately, we do not carry or service non-specialty medications. If you would like the medication to be mailed to the patient by a [facility], please consider sending the Rx to [facility] (phone [phone]). Otherwise, please send the Rx to a [facility] outpatient pharmacy or patient's preferred pharmacy. Thanks, Aleah Yang, KateD Clinical Pharmacist, [employer] [facility] ; Pool: P [facility] Pool #: [id number] Allergies As of Date: 01/26/2024 Noted Allergy Reaction IMURAN (AZATHIOPRINE) 06/21/2022 14 - Other: See Comments Comments: Joint stiffness TYLENOL (ACETAMINOPHEN) 06/21/2022 14 - Other: See Comments Comments: Fever and clammy Date Reviewed: 01/04/2024 Reviewed by: Ren Molina MA - Fully Assessed Prescriptions as of 01/26/2024 - rosuvastatin (CRESTOR) 20 mg tablet Take 1 tablet by mouth daily at bedtime. - COPPER ORAL Take by mouth. - risankizumab-rzaa (SKYRIZI) 360 mg/2.4 mL (150 mg/mL) wearable injector Inject 360 mg/2.4 mL subcutaneously once every 4 weeks - budesonide, enteric coated (ENTOCORT EC) 3 mg 24 hr capsule Take 3 capsules by mouth once daily - metoprolol succinate ER (TOPROL XL) 25 mg 24 hr tablet Take 1 tablet by mouth two times a day. - budesonide, enteric coated (ENTOCORT EC) 3 mg 24 hr capsule TAKE 2 CAPS BY MOUTH ONCE DAILY - predniSONE (DELTASONE) 1 mg tablet Take 4 tablets by mouth every afternoon. - potassium chloride 20 mEq TbER Take 3 tablets by mouth once daily. - cyanocobalamin 1,000 mcg/mL TAKE DIRECTED ONCE A MONTH 1,000 mcg/mL - lisinopril (ZESTRIL) 20 mg tablet Take 10 mg by mouth once daily. - predniSONE (DELTASONE) 5 mg tablet take 1 tablet by mouth once daily - potassium chloride (K-TAB) 10 mEq tablet Take 1 tablet by mouth once daily. - Cholecalciferol, Vitamin D3, 25 mcg (1,000 unit) cap Take by mouth q 24 HR. - ferrous bis-glycinate chelate (IRON BISGLYCINATE CHELATE) 29 mg iron cap Take 1 capsule by mouth once daily. 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] 06/25/2022 Acute respiratory failure with hypoxia (HCC) [J*06/25/2022 Encounter Status:Closed by ELEN YANG on 01/26/24 Normal [facility] CBC panel Auto (Bld)on 01-03 Erythrocyte distribution width (RBC) [Ratio] 13.3 % 11.5 - 15.0 % [facility] Hematocrit (Bld) [Volume fraction] 44.9 % 39.0 - 51.0 % [facility] Hemoglobin (Bld) [Mass/Vol] 14.4 g/dL 13.0 - 17.0 g/dL [facility] Interpretation and review of laboratory results Normal [facility] MCH (RBC) [Entitic mass] 29.6 pg 26.0 - 34.0 pg [facility] MCHC (RBC) [Mass/Vol] 32.1 g/dL 30.5 - 36.0 g/dL [facility] MCV (RBC) [Entitic vol] 92.4 fL 80.0 - 100.0 fL [facility] Nucleated RBC (Bld) [#/Vol] NINF [facility] Platelet mean volume (Bld) [Entitic vol] 10.2 fL 9.0 - 12.7 fL [facility] Platelets (Bld) [#/Vol] 250 10*3/uL [facility] RBC (Bld) [#/Vol] 4.86 10*6/uL 4.20 - 6.00 m/uL [facility] WBC (Bld) [#/Vol] 9.64 10*3/uL [facility] Erythrocyte distribution width (RBC) [Ratio] 13.3 % Normal 11.5-15.0 [facility] Comment on above: Order Comment: Speci men Type: BLOOD SPECIMENOrdering Facility: [facility] Address: [address] [place] [address] Performed By: #### 5 8410-2 ####[facility] LABCLIA [id number] [place] [address] [place] Hematocrit (Bld) [Volume fraction] 44.9 % Normal 39.0-51.0 [facility] Comment on above: Order Comment: Speci men Type: BLOOD SPECIMENOrdering Facility: [facility] Address: [address] [place] [address] Performed By: #### 5 8410-2 ####[facility] LABIA [id number] [place] [address] [place] Hemoglobin (Bld) [Mass/Vol] 14.4 g/dL Normal 13.0-17.0 [facility] Comment on above: Order Comment: Speci men Type: BLOOD SPECIMENOrdering Facility: [facility] Address: [address] [place] [address] Performed By: #### 5 8410-2 ####[facility] LABIA [id number] [place] [address] [place] MCH (RBC) [Entitic mass] 29.6 pg Normal 26.0-34.0 [facility] Comment on above: Order Comment: Speci men Type: BLOOD SPECIMENOrdering Facility: [facility] Address: [address] [place] [address] Performed By: #### 5 8410-2 ####[facility] LABIA [id number] [place] [address] [place] MCHC (RBC) [Mass/Vol] 32.1 g/dL Normal 30.5-36.0 [facility] Comment on above: Order Comment: Speci men Type: BLOOD SPECIMENOrdering Facility: [facility] Address: [address] [place] [address] Performed By: #### 5 8410-2 ####[facility] LABIA [id number] [place] [address] [place] MCV (RBC) [Entitic vol] 92.4 fL Normal 80.0-100.0 [facility] Comment on above: Order Comment: Speci men Type: BLOOD SPECIMENOrdering Facility: [facility] Address: [address] [place] [address] Performed By: #### 5 8410-2 ####[facility] LABCLIA [id number] [place] [address] [place] Nucleated RBC (Bld) [#/Vol] 10*3/uL Normal <0.01 [facility] Comment on above: Order Comment: Speci men Type: BLOOD SPECIMENOrdering Facility: [facility] Address: [address] [place] [address] Performed By: #### 5 8410-2 ####[facility] LABIA [id number] [place] [address] [place] Platelet mean volume (Bld) [Entitic vol] 10.2 fL Normal 9.0-12.7 [facility] Comment on above: Order Comment: Speci men Type: BLOOD SPECIMENOrdering Facility: [facility] Address: [address] [place] [address] Performed By: #### 5 8410-2 ####[facility] LABIA [id number] [place] [address] [place] Platelets (Bld) [#/Vol] 250 10*3/uL Normal 150-400 [facility] Comment on above: Order Comment: Speci men Type: BLOOD SPECIMENOrdering Facility: [facility] Address: [address] [place] [address] Performed By: #### 5 8410-2 ####[facility] LABIA [id number] [place] [address] [place] RBC (Bld) [#/Vol] 4.86 10*6/uL Normal 4.20-6.00 [facility] Comment on above: Order Comment: Speci men Type: BLOOD SPECIMENOrdering Facility: [facility] Address: [address] [place] [address] Performed By: #### 5 8410-2 ####[facility] LABIA [id number] [place] [address] [place] WBC (Bld) [#/Vol] 9.64 10*3/uL Normal 3.70-11.00 [facility] Comment on above: Order Comment: Speci men Type: BLOOD SPECIMENOrdering Facility: [facility] Address: [address] [place] [address] Performed By: #### 5 8410-2 ####[facility] LABCLIA [id number] [place] [address] [place] CRP SerPl-mCncon 01-04-2024 CRP [Mass/Vol] mg/L Normal <0.9 [facility] Comment on above: Order Comment: Speci men Type: BLOOD SPECIMENOrdering Facility: [facility] Address: [address] [place] [address] Performed By: #### 2 4323-8, 1987-07 ####[facility] LABCLIA [id number] [place] [address] [place] CRP [Mass/Vol]on 01-04-2024 Interpretation and review of laboratory results Normal [facility] CT CA SCORE (CARDIAC) WO IVC ONon 01-04-2024 CT CA SCORE (CARDIAC) WO IVCON * * *Final Report* * * DATE OF EXAM: Jan 04 2024 10:19AM [facility] 2057 - CT CA SCORE (CARDIAC) WO IVCON / PROCEDURE REASON: Encounter for screening for cardiovascular disorders * * * * Physician Interpretation * * * * Examination: CT Coronary Calcium Score Direct Image Comparison: None HISTORY: 63 years old Male with concern for coronary artery disease. There is request to assess and quantify coronary calcification TECHNIQUE: SCANNER: Multi-detector scanner PROTOCOL: Sequential imaging with prospective triggering and 3-mm slice reconstruction was performed without contrast administration. Scan Range: odalis to the base of the heart Tube Voltage: [address] Dose-Length Product (DLP): 96.[address] Dose Reduction Employed: Automated exposure control(AEC) and iterative recon CONTRAST: None Scan acquisition was uncomplicated Macro Version: [id number] For optimization of anatomic evaluation, off-line postprocessing was performed on a dedicated workstation by the interpreting physician. STUDY LIMITATIONS: None. RESULT: LINES, TUBES and DEVICES: None ICD device over the left anterior chest wall, with transvenous leads extending to the RV visualized CHEST: Chest wall anatomy: unremarkable. visualized LUNGS: unremarkable. visualized MEDIASTINUM: unremarkable. PERICARDIUM: unremarkable CENTRAL PULMONARY ARTERY: normal dimensions. Assessment is limited due to lack of contrast enhancement. CARDIAC CHAMBERS: assessment is limited in the non-contrast study. -overall normal dimensions AORTIC VALVE: assessment is limited in the current study. No leaflet calcification. visualized AORTA: Aortic Size: Ectasia/Mild Dilation aortic root and ascending aorta. Wall Changes: no wall calcification. AORTIC DIMENSIONS: AORTIC ROOT: 4.2 cm measured [id number] mid ASCENDING THORACIC AORTA: 3.8 cm mid DESCENDING THORACIC AORTA: 2.8 cm CORONARY ANATOMY: normal origin of the coronary arteries. Calcium Score (Agatston Units): LM: 0 AU LAD: 103 AU LCx: 0 AU RCA: 0 AU Other: 0 AU Total: 103 AU Percentile Rank (age and gender matched relative to reference population): 66 percentile* [* [email or web address]] limited upper ABDOMEN: unremarkable BONES and SOFT TISSUES: unremarkable, within limitations of the current study Drum Drier Operator (topogram) images: No additional findings. IMPRESSION: - Total Coronary Calcium Score (CAC) = 103 AU Mildly dilated aortic root at 4.0 cm and ascending aorta at 3.8 cm. 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: GIANNI Transcribe Date/Time: Jan 04 2024 5:47P Dictated by : HEAVEN VILLA MD This examination was interpreted and the report reviewed and electronically signed by: HEAVEN VILLA MD on Jan 04 2024 5:54PM EST [id number] Normal [facility] CT Heart and Coronary arteri es for calcium scoring WO contraston 01-04-2024 IMPRESSION: - Total Coronary Calcium Score (CAC) = 103 AU Mildly dilated aortic root at 4.0 cm and ascending aorta at 3.8 cm. 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: GIANNI Transcribe Date/Time: Jan 04 2024 5:47P Dictated by : HEAVEN VILLA MD This examination was interpreted and the report reviewed and electronically signed by: HEAVEN VILLA MD on Jan 04 2024 5:54PM [facility] DIVISION OF RADIOLOGY * * *Final Report* * * DATE OF EXAM: Jan 04 2024 10:19AM [facility] 2057 - CT CA SCORE (CARDIAC) WO IVCON / PROCEDURE REASON: Encounter for screening for cardiovascular disorders * * * * Physician Interpretation * * * * Examination: CT Coronary Calcium Score Direct Image Comparison: None HISTORY: 63 years old Male with concern for coronary artery disease. There is request to assess and quantify coronary calcification TECHNIQUE: SCANNER: Multi-detector scanner PROTOCOL: Sequential imaging with prospective triggering and 3-mm slice reconstruction was performed without contrast administration. Scan Range: odalis to the base of the heart Tube Voltage: [address] Dose-Length Product (DLP): 96.[address] Dose Reduction Employed: Automated exposure control(AEC) and iterative recon CONTRAST: None Scan acquisition was uncomplicated Macro Version: [id number] For optimization of anatomic evaluation, off-line postprocessing was performed on a dedicated workstation by the interpreting physician. STUDY LIMITATIONS: None. RESULT: LINES, TUBES and DEVICES: None ICD device over the left anterior chest wall, with transvenous leads extending to the RV visualized CHEST: Chest wall anatomy: unremarkable. visualized LUNGS: unremarkable. visualized MEDIASTINUM: unremarkable. PERICARDIUM: unremarkable CENTRAL PULMONARY ARTERY: normal dimensions. Assessment is limited due to lack of contrast enhancement. CARDIAC CHAMBERS: assessment is limited in the non-contrast study. -overall normal dimensions AORTIC VALVE: assessment is limited in the current study. No leaflet calcification. visualized AORTA: Aortic Size: Ectasia/Mild Dilation aortic root and ascending aorta. Wall Changes: no wall calcification. AORTIC DIMENSIONS: AORTIC ROOT: 4.2 cm measured [id number]-gf-pweru mid ASCENDING THORACIC AORTA: 3.8 cm mid DESCENDING THORACIC AORTA: 2.8 cm CORONARY ANATOMY: normal origin of the coronary arteries. Calcium Score (Agatston Units): LM: 0 AU LAD: 103 AU LCx: 0 AU RCA: 0 AU Other: 0 AU Total: 103 AU Percentile Rank (age and gender matched relative to reference population): 66 percentile* [* [email or web address]] limited upper ABDOMEN: unremarkable BONES and SOFT TISSUES: unremarkable, within limitations of the current study Drum Drier Operator (topogram) images: No additional findings. DIVISION OF RADIOLOGY Provider, Kavya Kat [facility] - 01/04/2024 * * *Final Report* * * DATE OF EXAM: Jan 04 2024 10:19AM [facility] 2057 - CT CA SCORE (CARDIAC) WO IVCON / PROCEDURE REASON: Encounter for screening for cardiovascular disorders * * * * Physician Interpretation * * * * Examination: CT Coronary Calcium Score Direct Image Comparison: None HISTORY: 63 years old Male with concern for coronary artery disease. There is request to assess and quantify coronary calcification TECHNIQUE: SCANNER: Multi-detector scanner PROTOCOL: Sequential imaging with prospective triggering and 3-mm slice reconstruction was performed without contrast administration. Scan Range: odalis to the base of the heart Tube Voltage: [address] Dose-Length Product (DLP): 96.[address] Dose Reduction Employed: Automated exposure control(AEC) and iterative recon CONTRAST: None Scan acquisition was uncomplicated Macro Version: [id number] For optimization of anatomic evaluation, off-line postprocessing was performed on a dedicated workstation by the interpreting physician. STUDY LIMITATIONS: None. RESULT: LINES, TUBES and DEVICES: None ICD device over the left anterior chest wall, with transvenous leads extending to the RV visualized CHEST: Chest wall anatomy: unremarkable. visualized LUNGS: unremarkable. visualized MEDIASTINUM: unremarkable. PERICARDIUM: unremarkable CENTRAL PULMONARY ARTERY: normal dimensions. Assessment is limited due to lack of contrast enhancement. CARDIAC CHAMBERS: assessment is limited in the non-contrast study. -overall normal dimensions AORTIC VALVE: assessment is limited in the current study. No leaflet calcification. visualized AORTA: Aortic Size: Ectasia/Mild Dilation aortic root and ascending aorta. Wall Changes: no wall calcification. AORTIC DIMENSIONS: AORTIC ROOT: 4.2 cm measured ozqou-gw-vyqup mid ASCENDING THORACIC AORTA: 3.8 cm mid DESCENDING THORACIC AORTA: 2.8 cm CORONARY ANATOMY: normal origin of the coronary arteries. Calcium Score (Agatston Units): LM: 0 AU LAD: 103 AU LCx: 0 AU RCA: 0 AU Other: 0 AU Total: 103 AU Percentile Rank (age and gender matched relative to reference population): 66 percentile* [* [email or web address]] limited upper ABDOMEN: unremarkable BONES and SOFT TISSUES: unremarkable, within limitations of the current study Drum Drier Operator (topogram) images: No additional findings. IMPRESSION IMPRESSION: - Total Coronary Calcium Score (CAC) = 103 AU Mildly dilated aortic root at 4.0 cm and ascending aorta at 3.8 cm. 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: GIANNI Transcribe Date/Time: Jan 04 2024 5:47P Dictated by : HEAVEN VILLA MD This examination was interpreted and the report reviewed and electronically signed by: HEAVEN VILLA MD on Jan 04 2024 5:54PM [facility] Radiology Study observation (narrative) [facility] CT Heart and Coronary arteri es for calcium scoring WO contrastOrdered By: Ccf Provider on 01-04-2024 [facility] Comprehensive metabolic 2000 panelon 01-04-2024 Albumin [Mass/Vol] 4.1 g/dL 3.9 - 4.9 g/dL [facility] ALP [Catalytic activity/Vol] 87 U/L 38 - 113 U/L [facility] ALT [Catalytic activity/Vol] 30 U/L 10 - 54 U/L [facility] Anion gap [Moles/Vol] 13 mmol/L 8 - 15 mmol/L [facility] AST [Catalytic activity/Vol] 24 U/L 14 - 40 U/L [facility] Bilirubin [Mass/Vol] 0.3 mg/dL 0.2 - 1 .3 mg/dL [facility] Calcium [Mass/Vol] 9.3 mg/dL 8.5 - 10. 2 mg/dL [facility] Chloride [Moles/Vol] 108 mmol/L High 98 - 10 7 mmol/L [facility] CO2 [Moles/Vol] 22 mmol/L 22 - 30 mmol/L [facility] Creatinine [Mass/Vol] 1.10 mg/dL 0.73 - 1.22 mg/dL [facility] GFR/1.73 sq M.predicted among non-blacks MDRD (S/P/Bld) [Vol rate/Area] 76 mL/min/{1.73_m2} - PINF [facility] Comment on above: Estimated Glomerular Filtration Rate (eGFR) is calculated using the 2020 CKD-EPI creatinine equation. This equation utilizes serum creatinine, sex, and age as parameters. The creatinine assay has traceable calibration to isotope dilution-mass spectrometry. Refer to KDIGO guidelines for clinical interpretation. In patients with unstable renal function, e.g. those with acute kidney injury, the eGFR may not accurately reflect actual GFR. Glucose [Mass/Vol] 121 mg/dL High 74 - 99 mg/dL [facility] Comment on above: The [place] Di[employer] Association (ADA) provides guidance for cutoff values [...] Standards of Medical Care in Diabetes 2016, [place] Diabetes [employer]. Diabetes Care. 2016.39(Suppl 1). Interpretation and review of laboratory results Abnormal [facility] Potassium [Moles/Vol] 3.7 mmol/L 3.7 - 5.1 mmol/L [facility] Protein [Mass/Vol] 6.8 g/dL 6.3 - 8.0 g/dL [facility] Sodium [Moles/Vol] 143 mmol/L 136 - 144 mmol/L [facility] Urea nitrogen [Mass/Vol] 14 mg/dL 9 - 24 mg/dL [facility] Albumin [Mass/Vol] 4.1 g/dL Normal 3.9-4.9 [facility] Comment on above: Order Comment: Brittany kern Type: BLOOD SPECIMENOrdering Facility: [facility] Address: [address] [place] [address] Performed By: #### 2 4323-8, 1987-07 ####[facility] LABCLIA [id number] [place] [address] [place] ALP [Catalytic activity/Vol] 87 U/L Normal 38-113 [facility] Comment on above: Order Comment: Brittany kern Type: BLOOD SPECIMENOrdering Facility: [facility] Address: [address] [id number] Performed By: #### 2 43205-18, 1987-07 ####[facility] LABCLIA [id number] [place] [address] [place] ALT [Catalytic activity/Vol] 30 U/L Normal 10-54 [facility] Comment on above: Order Comment: Speci men Type: BLOOD SPECIMENOrdering Facility: [facility] Address: [address] [place] [address] Performed By: #### 2 4322-10, 1987-07 ####[facility] LABCLIA [id number] [place] [address] [place] Anion gap [Moles/Vol] 13 mmol/L Normal 8-15 [facility] Comment on above: Order Comment: Speci men Type: BLOOD SPECIMENOrdering Facility: [facility] Address: [address] [place] [address] Performed By: #### 2 4322-10, 1987-07 ####[facility] LABCLIA [id number] [place] [address] [place] AST [Catalytic activity/Vol] 24 U/L Normal 14-40 [facility] Comment on above: Order Comment: Speci men Type: BLOOD SPECIMENOrdering Facility: [facility] Address: [address] [place] [address] Performed By: #### 2 4322-10, 1987-07 ####[facility] LABCLIA [id number] [place] [id number] [place] Bilirubin [Mass/Vol] 0.3 mg/dL Normal 0.2-1.3 [facility] Comment on above: Order Comment: Speci men Type: BLOOD SPECIMENOrdering Facility: [facility] Address: [address] [place] [address] Performed By: #### 2 4322-10, 1987-07 ####[facility] LABCLIA [id number] [facility] [place] [address] [place] Calcium [Mass/Vol] 9.3 mg/dL Normal 8.5-10.2 [facility] Comment on above: Order Comment: Speci men Type: BLOOD SPECIMENOrdering Facility: [facility] Address: [address] [place] [address] Performed By: #### 2 43205-18, 1987-07 ####[facility] LABCLIA [id number] [facility] [place] [address] [place] Chloride [Moles/Vol] 108 mmol/L High 98-107 [facility] Comment on above: Order Comment: Speci men Type: BLOOD SPECIMENOrdering Facility: [facility] Address: [address] [place] [address] Performed By: #### 2 4322-10, 1987-07 ####[facility] LABCLIA [id number] [place] [address] [place] CO2 [Moles/Vol] 22 mmol/L Normal 22-30 [facility] Comment on above: Order Comment: Speci men Type: BLOOD SPECIMENOrdering Facility: [facility] Address: [address] [place] [address] Performed By: #### 2 4322-10, 1987-07 ####[facility] LABCLIA [id number] [place] [address] [place] Creatinine [Mass/Vol] 1.10 mg/dL Normal 0.73-1.22 [facility] Comment on above: Order Comment: Speci men Type: BLOOD SPECIMENOrdering Facility: [facility] Address: [address] [place] [address] Performed By: #### 2 4322-10, 1987-07 ####[facility] LABCLIA [id number] [place] [address] [place] Creatinine and Glomerular filtration rate.predicted panel (S/P/Bld) 76 mL/min/1.73m??? Normal >=60 [facility] Comment on above: Order Comment: Brittany kern Type: BLOOD SPECIMENOrdering Facility: [facility] Address: [address] [place] [address] Result Comment: Sabrina mated Glomerular Filtration Rate (eGFR) is calculated using the 2020 CKD-EPI creatinine equation. This equation utilizes serum creatinine, sex, and age as parameters. The creatinine assay has traceable calibration to isotope dilution-mass spectrometry. Refer to KDIGO guidelines for clinical interpretation. In patients with unstable renal function, e.g. those with acute kidney injury, the eGFR may not accurately reflect actual GFR. Performed By: #### 2 43238, 1987-07 ####[facility] LABCLIA [id number] [place] [address] [place] Glucose [Mass/Vol] 121 mg/dL High 74-99 [facility] Comment on above: Order Comment: Brittany kern Type: BLOOD SPECIMENOrdering Facility: [facility] Address: [address] [place] [address] Result Comment: The [place] Diabetes Association (ADA) provides guidance for cutoff [...] Standards of Medical Care in Diabetes 2016, [place] Diabetes Association. Diabetes Care. 2016.39(Suppl 1). Performed By: #### 2 4323-8, 1987-07 ####[facility] LABCLIA [id number] [place] [address] [place] Potassium [Moles/Vol] 3.7 mmol/L Normal 3.7-5.1 [facility] Comment on above: Order Comment: Speci men Type: BLOOD SPECIMENOrdering Facility: [facility] Address: [address] [place], [place] [address] Performed By: #### 2 4323-8, 1987-07 ####[facility] LABCLIA [id number] [address] [address] [place] Protein [Mass/Vol] 6.8 g/dL Normal 6.3-8.0 [facility] Comment on above: Order Comment: Speci men Type: BLOOD SPECIMENOrdering Facility: [facility] Address: [address] [place], [place] [address] Performed By: #### 2 4328, 1987-07 ####[facility] LABCLIA [id number] [place] [address] [place] Sodium [Moles/Vol] 143 mmol/L Normal 136-144 [facility] Comment on above: Order Comment: Speci men Type: BLOOD SPECIMENOrdering Facility: [facility] Address: [address] [place] [address] Performed By: #### 2 4328, 1987-07 ####[facility] LABCLIA [id number] [place] [address] [place] Urea nitrogen [Mass/Vol] 14 mg/dL Normal 9-24 [facility] Comment on above: Order Comment: Speci men Type: BLOOD SPECIMENOrdering Facility: [facility] Address: [address] [place], [place] [id number] Performed By: #### 2 4328, 1987-07 ####[facility] LABCLIA [id number] [place] [id number] [place] Laboratory - Chemistry and C hemistry - challengeon 01-04-2024 CRP [Mass/Vol] mg/dL NINF - 0.9 mg/dL [facility] No Panel Informationon 01-03 [facility] CNPNon 01-02-2024 CNPN Telephone ([facility]) -------- JOSÉ MIGUEL CARRENO ([id number]) 1960 M [place] Date Time Provider Department 01/02/24 [facility] During your visit today, we recorded the following information about you: Hina Waite 01/02/2024 2:58 PM Signed Can you Allergies As of Date: 01/02/2024 Noted Allergy Reaction IMURAN (AZATHIOPRINE) 06/21/2022 14 - Other: See Comments Comments: Joint stiffness TYLENOL (ACETAMINOPHEN) 06/21/2022 14 - Other: See Comments Comments: Fever and clammy Date Reviewed: 12/28/2023 Reviewed by: Carmen Real RN - Fully Assessed Reason for Visit: Lab [Other] Prescriptions as of 01/02/2024 - risankizumab-rzaa (SKYRIZI) 360 mg/2.4 mL (150 mg/mL) wearable injector Inject 360 mg/2.4 mL subcutaneously once every 4 weeks - budesonide, enteric coated (ENTOCORT EC) 3 mg 24 hr capsule Take 3 capsules by mouth once daily - metoprolol succinate ER (TOPROL XL) 25 mg 24 hr tablet Take 1 tablet by mouth two times a day. - budesonide, enteric coated (ENTOCORT EC) 3 mg 24 hr capsule TAKE 2 CAPS BY MOUTH ONCE DAILY - predniSONE (DELTASONE) 1 mg tablet Take 4 tablets by mouth every afternoon. - potassium chloride 20 mEq TbER Take 3 tablets by mouth once daily. - cyanocobalamin 1,000 mcg/mL TAKE DIRECTED ONCE A MONTH 1,000 mcg/mL - lisinopril (ZESTRIL) 20 mg tablet Take 10 mg by mouth once daily. - predniSONE (DELTASONE) 5 mg tablet take 1 tablet by mouth once daily - potassium chloride (K-TAB) 10 mEq tablet Take 1 tablet by mouth once daily. - Cholecalciferol, Vitamin D3, 25 mcg (1,000 unit) cap Take by mouth q 24 HR. - ferrous bis-glycinate chelate (IRON BISGLYCINATE CHELATE) 29 mg iron cap Take 1 capsule by mouth once daily. 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] 06/25/2022 Acute respiratory failure with hypoxia (HCC) [J*06/25/2022 Encounter Status:Closed by HINA WAITE on 01/02/[address] [facility] [address] ENTEROGRAPHY W IVCONon CT ENTEROGRAPHY W IVCON * * *Final Repor t* * * DATE OF EXAM: Dec 28 2023 11:32AM [facility] 0545 - CT ENTEROGRAPHY W IVCON / PROCEDURE REASON: Crohn's disease of small and large intestines with complication (HCC) * * * * Physician Interpretation * * * * CT ABDOMEN AND PELVIS WITH IV CONTRAST AND LOW DENSITY ORAL CONTRAST (CT ENTEROGRAPHY) CLINICAL HISTORY: Crohn's disease, follow-up exam TECHNIQUE: CT of the abdomen and pelvis was performed using standard technique, scanning from just above the dome of the diaphragm to the symphysis pubis. M: CTAP_2 Contrast: IV: 100 ml of Omnipaque 350 Oral: [address] Radiation dose: Integrated Dose-length product (DLP) for this visit = 742 mGy*cm. CT Dose Reduction Employed: Automated exposure control (AEC) COMPARISON: 05/23/2023, 09/26/2022 RESULT: GI tract: Stable postoperative changes about the cecum with ileocolic anastomosis. Several layering high attenuation pills are seen just posteriorly ileocecal anastomosis. There is relatively Limited opacification of the mid and distal small bowel without dilated loops - Small bowel: mixed stenotic and active inflammatory disease involving the distal/terminal ileum. 2.5 cm asymmetric mural thickening at the ileocolic anastomosis (7:105) with suspected penetrating inflammatory disease in the adjacent mesentery (7:102-06); no discrete sinus tract or abscess seen. Upstream to this is a focally dilated small bowel loop measuring 4.4 cm (7:113), previously 5.3 cm. Upstream to this dilated segment there is approximately 20 cm long collapsed small bowel segment with probable asymmetric mural enhancement suspicious for active Crohn disease, but without upstream dilation. - Colon: Moderate retained feces. No mural enhancement or wall thickening. Strictures: At the ileocolic anastomosis with upstream focally dilated small bowel loop up to 4.4 cm, previously 5.3 cm Fistulae/Sinus tracts: Suspected ill-defined penetrating disease at the ileocolic anastomosis. Abscess: No discrete inflammatory mass or abscess Other: No urolithiasis or calcified gallstones. No sacroiliitis. Liver: Steatosis. 1.5 cm deep LEFT hepatic dome cyst. Normal contour. Biliary: No bile duct dilation. Gallbladder is unremarkable. Spleen: No mass. No splenomegaly. Pancreas: No mass or duct dilation. Adrenals: No mass. Kidneys: Stable RIGHT renal cysts larger measuring 2.3 cm. No suspicious mass or hydronephrosis. Lymph nodes: No abdominal or pelvic lymphadenopathy. Mesentery/Peritoneum: Inflammatory fat stranding and vascular congestion in the mesentery of the distal ileum and ileocolic anastomosis. Probable penetrating disease adjacent to a 2.5 cm ileocolic anastomotic stricture. No discrete abscess/fluid collection or sinus tracts seen. Retroperitoneum: No mass or fluid collection. Vasculature: The celiac axis and SMA are patent. The portal vein and branches, splenic vein, SMV, and hepatic veins are patent. No abdominal aortic aneurysm. Pelvis: No mass, ascites or fluid collection. Pelvis viscera unremarkable Bones/Soft Tissues: Bones are osteopenic. Lumbosacral spine degenerative change. No destructive or traumatic bone lesion is seen. Lower thorax: Mild atelectasis. No consolidation or pleural effusion. Localizer images: No additional findings. IMPRESSION: IMPRESSION: MIXED STENOTIC AND ACTIVE INFLAMMATORY SMALL BOWEL CROHN'S DISEASE INVOLVING APPROXIMATELY 20 CM OF DISTAL SMALL BOWEL INCLUDING NEOTERMINAL ILEUM, DESCRIBED. FOCALLY DILATED UPSTREAM SMALL BOWEL MEASURES UP TO 4.4 CM, PREVIOUSLY 5.3 CM. PENETRATING DISEASE: ILL-DEFINED PENETRATING DISEASE ASSOCIATED WITH THE NEOTERMINAL ILEUM STRICTURE. HEPATIC STEATOSIS. 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 FOCALLY DILATED UPSTREAM SMALL BOWEL MEASURES UP TO 4.4 CM, PREVIOUSLY 5.3 CM. PENETRATING DISEASE: ILL-DEFINED PENETRATING DISEASE ASSOCIATED WITH THE NEOTERMINAL ILEUM STRICTURE. HEPATIC STEATOSIS. 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: [facility] Transcribe Date/Time: Dec 28 2023 12:19P Dictated by : SHIRA MAN MD This examination was interpreted and the report reviewed and electronically signed by: SHIRA MAN MD on Dec 28 2023 12:38PM [facility] DIVISION OF RADIOLOGY * * *Final Report* * * DATE OF EXAM: Dec 28 2023 11:32AM [facility] 0545 - CT ENTEROGRAPHY W IVCON / PROCEDURE REASON: Crohn's disease of small and large intestines with complication (HCC) * * * * Physician Interpretation * * * * CT ABDOMEN AND PELVIS WITH IV CONTRAST AND LOW DENSITY ORAL CONTRAST (CT ENTEROGRAPHY) CLINICAL HISTORY: Crohn's disease, follow-up exam TECHNIQUE: CT of the abdomen and pelvis was performed using standard technique, scanning from just above the dome of the diaphragm to the symphysis pubis. M: CTAP_2 Contrast: IV: 100 ml of Omnipaque 350 Oral: [address] Radiation dose: Integrated Dose-length product (DLP) for this visit = 742 mGy*cm. CT Dose Reduction Employed: Automated exposure control (AEC) COMPARISON: 05/23/2023, 09/26/2022 RESULT: GI tract: Stable postoperative changes about the cecum with ileocolic anastomosis. Several layering high attenuation pills are seen just posteriorly ileocecal anastomosis. There is relatively Limited opacification of the mid and distal small bowel without dilated loops - Small bowel: mixed stenotic and active inflammatory disease involving the distal/terminal ileum. 2.5 cm asymmetric mural thickening at the ileocolic anastomosis (7:105) with suspected penetrating inflammatory disease in the adjacent mesentery (7:102-06); no discrete sinus tract or abscess seen. Upstream to this is a focally dilated small bowel loop measuring 4.4 cm (7:113), previously 5.3 cm. Upstream to this dilated segment there is approximately 20 cm long collapsed small bowel segment with probable asymmetric mural enhancement suspicious for active Crohn disease, but without upstream dilation. - Colon: Moderate retained feces. No mural enhancement or wall thickening. Strictures: At the ileocolic anastomosis with upstream focally dilated small bowel loop up to 4.4 cm, previously 5.3 cm Fistulae/Sinus tracts: Suspected ill-defined penetrating disease at the ileocolic anastomosis. Abscess: No discrete inflammatory mass or abscess Other: No urolithiasis or calcified gallstones. No sacroiliitis. Liver: Steatosis. 1.5 cm deep LEFT hepatic dome cyst. Normal contour. Biliary: No bile duct dilation. Gallbladder is unremarkable. Spleen: No mass. No splenomegaly. Pancreas: No mass or duct dilation. Adrenals: No mass. Kidneys: Stable RIGHT renal cysts larger measuring 2.3 cm. No suspicious mass or hydronephrosis. Lymph nodes: No abdominal or pelvic lymphadenopathy. Mesentery/Peritoneum: Inflammatory fat stranding and vascular congestion in the mesentery of the distal ileum and ileocolic anastomosis. Probable penetrating disease adjacent to a 2.5 cm ileocolic anastomotic stricture. No discrete abscess/fluid collection or sinus tracts seen. Retroperitoneum: No mass or fluid collection. Vasculature: The celiac axis and SMA are patent. The portal vein and branches, splenic vein, SMV, and hepatic veins are patent. No abdominal aortic aneurysm. Pelvis: No mass, ascites or fluid collection. Pelvis viscera unremarkable Bones/Soft Tissues: Bones are osteopenic. Lumbosacral spine degenerative change. No destructive or traumatic bone lesion is seen. Lower thorax: Mild atelectasis. No consolidation or pleural effusion. Localizer images: No additional findings. DIVISION OF RADIOLOGY Provider, [facility] - 12/28/2023 * * *Final Report* * * DATE OF EXAM: Dec 28 2023 11:32AM [facility] 0545 - CT ENTEROGRAPHY W IVCON / PROCEDURE REASON: Crohn's disease of small and large intestines with complication (HCC) * * * * Physician Interpretation * * * * CT ABDOMEN AND PELVIS WITH IV CONTRAST AND LOW DENSITY ORAL CONTRAST (CT ENTEROGRAPHY) CLINICAL HISTORY: Crohn's disease, follow-up exam TECHNIQUE: CT of the abdomen and pelvis was performed using standard technique, scanning from just above the dome of the diaphragm to the symphysis pubis. M: CTAP_2 Contrast: IV: 100 ml of Omnipaque 350 Oral: [address] Radiation dose: Integrated Dose-length product (DLP) for this visit = 742 mGy*cm. CT Dose Reduction Employed: Automated exposure control (AEC) COMPARISON: 05/23/2023, 09/26/2022 RESULT: GI tract: Stable postoperative changes about the cecum with ileocolic anastomosis. Several layering high attenuation pills are seen just posteriorly ileocecal anastomosis. There is relatively Limited opacification of the mid and distal small bowel without dilated loops - Small bowel: mixed stenotic and active inflammatory disease involving the distal/terminal ileum. 2.5 cm asymmetric mural thickening at the ileocolic anastomosis (7:105) with suspected penetrating inflammatory disease in the adjacent mesentery (7:102-06); no discrete sinus tract or abscess seen. Upstream to this is a focally dilated small bowel loop measuring 4.4 cm (7:113), previously 5.3 cm. Upstream to this dilated segment there is approximately 20 cm long collapsed small bowel segment with probable asymmetric mural enhancement suspicious for active Crohn disease, but without upstream dilation. - Colon: Moderate retained feces. No mural enhancement or wall thickening. Strictures: At the ileocolic anastomosis with upstream focally dilated small bowel loop up to 4.4 cm, previously 5.3 cm Fistulae/Sinus tracts: Suspected ill-defined penetrating disease at the ileocolic anastomosis. Abscess: No discrete inflammatory mass or abscess Other: No urolithiasis or calcified gallstones. No sacroiliitis. Liver: Steatosis. 1.5 cm deep LEFT hepatic dome cyst. Normal contour. Biliary: No bile duct dilation. Gallbladder is unremarkable. Spleen: No mass. No splenomegaly. Pancreas: No mass or duct dilation. Adrenals: No mass. Kidneys: Stable RIGHT renal cysts larger measuring 2.3 cm. No suspicious mass or hydronephrosis. Lymph nodes: No abdominal or pelvic lymphadenopathy. Mesentery/Peritoneum: Inflammatory fat stranding and vascular congestion in the mesentery of the distal ileum and ileocolic anastomosis. Probable penetrating disease adjacent to a 2.5 cm ileocolic anastomotic stricture. No discrete abscess/fluid collection or sinus tracts seen. Retroperitoneum: No mass or fluid collection. Vasculature: The celiac axis and SMA are patent. The portal vein and branches, splenic vein, SMV, and hepatic veins are patent. No abdominal aortic aneurysm. Pelvis: No mass, ascites or fluid collection. Pelvis viscera unremarkable Bones/Soft Tissues: Bones are osteopenic. Lumbosacral spine degenerative change. No destructive or traumatic bone lesion is seen. Lower thorax: Mild atelectasis. No consolidation or pleural effusion. Localizer images: No additional findings. IMPRESSION IMPRESSION: IMPRESSION: MIXED STENOTIC AND ACTIVE INFLAMMATORY SMALL BOWEL CROHN'S DISEASE INVOLVING APPROXIMATELY 20 CM OF DISTAL SMALL BOWEL INCLUDING NEOTERMINAL ILEUM, DESCRIBED. FOCALLY DILATED UPSTREAM SMALL BOWEL MEASURES UP TO 4.4 CM, PREVIOUSLY 5.3 CM. PENETRATING DISEASE: ILL-DEFINED PENETRATING DISEASE ASSOCIATED WITH THE NEOTERMINAL ILEUM STRICTURE. HEPATIC STEATOSIS. 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: GIANNI Transcribe Date/Time: Dec 28 2023 12:19P Dictated by : SHIRA MAN MD This examination was interpreted and the report reviewed and electronically signed by: SHIRA MAN MD on Dec 28 2023 12:38PM [facility] Radiology Study observation (narrative) [facility] CT Small bowel W contrast PO and W contrast IVOrdered By: Ccf Provider on 12-28-2023 [facility] CREATININE BLDon 12-25-2023 Creatinine [Mass/Vol] 1.09 mg/dL Normal 0.73-1.22 [facility] Comment on above: Order Comment: Speci men Type: BLOOD SPECIMENOrdering Facility: [facility] Address: [address] [place] [address] Performed By: #### C RET1 ####[facility] LABCLIA [id number] [place] [address] Creatinine and Glomerular filtration rate.predicted panel (S/P/Bld) 77 mL/min/1.73m??? Normal >=60 [facility] Comment on above: Order Comment: Speci men Type: BLOOD SPECIMENOrdering Facility: [facility] Address: [address] [place] [address] Result Comment: Sabrina mated Glomerular Filtration Rate (eGFR) is calculated using the 2020 CKD-EPI creatinine equation. This equation utilizes serum creatinine, sex, and age as parameters. The creatinine assay has traceable calibration to isotope dilution-mass spectrometry. Refer to KDIGO guidelines for clinical interpretation. In patients with unstable renal function, e.g. those with acute kidney injury, the eGFR may not accurately reflect actual GFR. Performed By: #### C RET1 ####[facility] LABIA [id number] [place] [id number] CNCOon 12-04-2023 CNCO Letter Text Normal [facility] POTASSIUMon 11-28-2023 Potassium [Moles/Vol] 3.8 mmol/L Normal 3.7-5.1 [facility] Comment on above: Order Comment: Speci men Type: BLOOD SPECIMENOrdering Facility: [facility] Address: [address] [place] [address] Performed By: #### K 1 ####[facility] LABIA [id number] [place] [address] ICD CLINIC CHECKon 4 Battery Voltage 3.11 V [facility] Eduin RA Pacing Polarity BI [facility] Eduin RA Sensing Amplitude (mvolts) 1.0 mV [facility] Eduin RA Sensing Polarity BI [facility] Eduin RV Pacing Amplitude (volts) 2.0 V [facility] Eduin RV Pacing Polarity BI [facility] Eduin RV Pacing Pulse Width (ms) 0.4 ms [facility] Eduin RV Sensing Amplitude (mvolts) 0.8 mV [facility] Eduin RV Sensing Polarity BI [facility] Detection Configuration (Vent) 2 - Zone [facility] FastVT_Detection Interval 330 ms [facility] FastVT_Therapy Configuration 2 ATP(s) + 8 Shock(s) [facility] ICD FastVT DetectionStatus ENABLED [facility] ICD-ATP Episodes (Vent) 0 [facility] ICD-Device Mfg BIO [facility] ICD-Fast Ventricular Tachycardia 0 [facility] ICD-Percent Pacing (Vent) 0 % [facility] ICD-Rhythm Normal Sinus Rhythm [facility] [id number] 0 [facility] ICD-SHOCKSDELIVEREDVENT RICULAR 0 [facility] Lead Impedance (RV) 481 ohm [facility] Lead Impedance High Voltage 83 ohm [facility] Lead1 Mfg BIO [facility] Location RV [facility] Lower Rate (bpm) 40 {beats}/min [facility] MDT_PROG_TACHY_ZONE_DET ECTIONS_STATUS ENABLED [facility] Model [id number] Acticor 7 VR-T DX [facility] Model [id number] Plexa ProMRI S DX 65/15 [facility] Pacemaker Dependent? NO [facility] Pacing Mode VDI [facility] Serial Number [id number] [facility] Serial Number [id number] [facility] Test Charge Energy 40 J [facility] Test Charge Time 9 s [facility] Therapy Status (Vent) Enabled [facility] Thresh RV Capture Amplitude (VOLTS) 1.0 V [facility] Thresh RV Capture Duration (MS) 0.4 ms [facility] VF Zone Detection Interval 330 ms [facility] VF Zone Therapy Configuration 2 ATP(s) + 8 Shock(s) [facility] 07/25/2023 Formattin g of this note might be different from the original. SINGLE LEAD ICD EVALUATION RV only lead provides some atrial diagnostics. PRESENTS FOR: In clinic device check and OPD with Dr. Fay. PRESENTING EGM: /VS UNDERLYING RHYTHM: SR BATTERY STATUS: Battery is at beginning of service (HODA). COUNTERS SINCE: 06/14/23 ATRIAL ARRHYTHMIAS: There were 0 triggered episodes of atrial high rates. VENTRICULAR ARRHYTHMIAS: There have 5 nsVT detections confirmed by EGM. LEAD MEASUREMENTS: Capture and sensing are appropriate. The pacing outputs maintain safety margin. Review of the lead impedance trends are normal. IMPLANT SITE/ SYMPTOMS: The incision and pocket are pain-free (0/10), well healed and without signs of erosion or infection. No arm swelling, syncope, pre-syncope or device related pocket stimulation. OTHER DIAGNOSTICS: RV pacing 0%. PROGRAMMING CHANGES MADE TODAY: Programmed the RV output based on today's capture testing results. FOLLOW UP: Remotes every 13 weeks and yearly in clinic visits. Blake Pelayo RN NOTE TO PROVIDERS: CARD Flowsheets contain detailed device programming and testing data. Paceart/Interrogation PDF can be found under CARDIAC DATA AND REPORT, Scanned Documents section. [facility] No Panel Informationon 07-24 BLANK _ [facility] Implant Date 01/09/2020 [facility] ICD REMOTE CHECKon 4 AFib_Detection Interval 300 ms [facility] Battery Voltage 3.11 V [facility] Eduin RA Sensing Amplitude (mvolts) 1.0 mV [facility] Eduin RA Sensing Polarity BI [facility] Eduin RV Pacing Amplitude (volts) 2.750 V [facility] Eudin RV Pacing Polarity BI [facility] Eduin RV Pacing Pulse Width (ms) 0.40 ms [facility] Eduin RV Sensing Amplitude (mvolts) 0.8 mV [facility] Eduin RV Sensing Polarity BI [facility] Detection Configuration (Vent) 2 - Zone [facility] FastVT_Detection Interval 330 ms [facility] FastVT_Therapy Configuration 2 ATP(s) + 8 Shock(s) [facility] ICD AFIB DetectionStatus Monitor [facility] ICD FastVT DetectionStatus ENABLED [facility] ICD-ATP Episodes (Vent) 0 C [facility] ICD-Device Mfg BIO [facility] ICD-Percent Pacing (Vent) 0 % [facility] ICD-Shocks Aborted (Vent) 0 [facility] [id number] 0 [facility] ICD-SHOCKSABORTED 0 [facility] ICD-SHOCKSDELIVEREDVENT RICULAR 0 [facility] Lead Impedance (RV) 461 ohm [facility] Lead Impedance High Voltage 77 ohm [facility] Lead1 Mfg BIO [facility] Location RV [facility] Lower Rate (bpm) 40 {beats}/min [facility] MDT_PROG_TACHY_ZONE_DET ECTIONS_STATUS ENABLED [facility] Model [id number] Acticor 7 VR-T DX [facility] Model [id number] Plexa ProMRI S DX 65/15 [facility] Pacing Mode VDI [facility] Serial Number [id number] [facility] Serial Number [id number] [facility] Test Charge Energy 40 J [facility] Test Charge Time 9.1 s [facility] Therapy Status (Vent) Enabled [facility] VF Zone Detection Interval 330 ms [facility] VF Zone Therapy Configuration 2 ATP(s) + 8 Shock(s) [facility] No Panel Informationon 06-13 BLANK _ [facility] Implant Date 01/09/2020 [facility] C-REACTIVE PROTEIN (CRP)on 0 06-09-2023 CRP [Mass/Vol] <0.9 mg/dL [facility] CBC panel Auto (Bld)on 06-08 Erythrocyte distribution width (RBC) [Ratio] 13.3 % 11.5 - 15.0 % [facility] Hematocrit (Bld) [Volume fraction] 43.5 % 39.0 - 51.0 % [facility] Hemoglobin (Bld) [Mass/Vol] 14.8 g/dL 13.0 - 17.0 g/dL [facility] MCH (RBC) [Entitic mass] 29.7 pg 26.0 - 34.0 pg [facility] MCHC (RBC) [Mass/Vol] 34.0 g/dL 30.5 - 36.0 g/dL [facility] MCV (RBC) [Entitic vol] 87.3 fL 80.0 - 100.0 fL [facility] Nucleated RBC (Bld) [#/Vol] <0.01 k/uL [facility] Platelet mean volume (Bld) [Entitic vol] 9.7 fL 9.0 - 12.7 fL [facility] Platelets (Bld) [#/Vol] 244 10*3/uL 150 - 400 k/uL [facility] RBC (Bld) [#/Vol] 4.98 10*6/uL 4.20 - 6.00 m/uL [facility] WBC (Bld) [#/Vol] 11.39 10*3/uL High 3.70 - 11.00 k/uL [facility] Comprehensive metabolic 2000 panelon 06-09-2023 Albumin [Mass/Vol] 4.2 g/dL 3.9 - 4.9 g/dL [facility] ALP [Catalytic activity/Vol] 105 U/L 38 - 113 U/L [facility] ALT [Catalytic activity/Vol] 21 U/L 10 - 54 U/L [facility] Anion gap [Moles/Vol] 13 mmol/L 9 - 18 mmol/L [facility] AST [Catalytic activity/Vol] 18 U/L 14 - 40 U/L [facility] Bilirubin [Mass/Vol] 0.4 mg/dL 0.2 - 1 .3 mg/dL [facility] Calcium [Mass/Vol] 9.8 mg/dL 8.5 - 10. 2 mg/dL [facility] Chloride [Moles/Vol] 106 mmol/L High 97 - 10 5 mmol/L [facility] CO2 [Moles/Vol] 22 mmol/L 22 - 30 mmol/L [facility] Creatinine [Mass/Vol] 1.11 mg/dL 0.73 - 1.22 mg/dL [facility] Estimated Glomerular Filtration Rate 76 mL/min/1.73m >=60 mL/min/1.7 3m [facility] Glucose [Mass/Vol] 127 mg/dL High 74 - 99 mg/dL [facility] Potassium [Moles/Vol] 3.9 mmol/L 3.7 - 5.1 mmol/L [facility] Protein [Mass/Vol] 6.7 g/dL 6.3 - 8.0 g/dL [facility] Sodium [Moles/Vol] 141 mmol/L 136 - 144 mmol/L [facility] Urea nitrogen [Mass/Vol] 15 mg/dL 9 - 24 mg/dL [facility] CT Small bowel W contrast PO and W contrast Nena 05-23-2023 [facility] XR SMALL BOWEL SERIESon 10-12 [facility] DXA-AXIAL SKELETONon 023 LOWEST T-SCORE -0.6 [facility] Pre-Certification Formon Pre-Certification Form [id number]: 127 Normal [facility] Pre-Certification Formon Pre-Certification Form [id number]: 127 Normal [facility] ICD CLINIC CHECKon 3 Battery Voltage 3.11 V [facility] Eduin RA Pacing Polarity BI [facility] Eduin RA Sensing Amplitude (mvolts) 1.0 mV [facility] Eduin RA Sensing Polarity BI [facility] Eduin RV Pacing Amplitude (volts) 2.75 V [facility] Eduin RV Pacing Polarity BI [facility] Eduin RV Pacing Pulse Width (ms) 0.4 ms [facility] Eduin RV Sensing Amplitude (mvolts) 0.8 mV [facility] Eduin RV Sensing Polarity BI [facility] Detection Configuration (Vent) 2 - Zone [facility] FastVT_Detection Interval 330 ms [facility] FastVT_Therapy Configuration 2 ATP(s) + 8 Shock(s) [facility] ICD FastVT DetectionStatus ENABLED [facility] ICD-ATP Episodes (Vent) 0 C [facility] ICD-Device Mfg BIO [facility] ICD-Fast Ventricular Tachycardia 0 [facility] ICD-Percent Pacing (Vent) 0 % [facility] ICD-Rhythm SR [facility] [id number] 0 [facility] ICD-SHOCKSDELIVEREDVENT RICULAR 0 [facility] Lead Impedance (RV) 481 ohm [facility] Lead Impedance High Voltage 82 ohm [facility] Lead1 Mfg BIO [facility] Location RV [facility] Lower Rate (bpm) 40 {beats}/min [facility] MDT_PROG_TACHY_ZONE_DET ECTIONS_STATUS ENABLED [facility] Model [id number] Acticor 7 VR-T DX [facility] Model [id number] Plexa ProMRI S DX 65/15 [facility] Pacemaker Dependent? NO [facility] Pacing Mode VDI [facility] Serial Number [id number] [facility] Serial Number [id number] [facility] Test Charge Energy 40 J [facility] Test Charge Time 9 s [facility] Therapy Status (Vent) Enabled [facility] VF Zone Detection Interval 330 ms [facility] VF Zone Therapy Configuration 2 ATP(s) + 8 Shock(s) [facility] No Panel Informationon 10-12 BLANK _ [facility] Implant Date 01/09/2020 [facility] Quick Strepon 10-09-2022 S. pyogenes Org specific cx Ql (Throat) Negative [employer] Other Quick Strep [employer] Other CT ENTEROGRAPHY W IVCONon CT ENTEROGRAPHY W IVCON * * *Final Repor t* * * DATE OF EXAM: Sep 26 2022 8:38AM [facility] 0545 - CT ENTEROGRAPHY W IVCON / PROCEDURE REASON: Crohn's disease of small intestine with complication (HCC) * * * * Physician Interpretation * * * * EXAMINATION: CT ABDOMEN AND PELVIS WITH INTRAVENOUS CONTRAST AND NEUTRAL ORAL CONTRAST(CT ENTEROGRAPHY) HISTORY: Crohn's disease with ileocolonic stricturing post multiple intestinal resections, most recently ileal colonic resection in 2010. Colonoscopy on 09/08/2022 demonstrated ileal active ileitis with stricture. TECHNIQUE: CT of the abdomen and pelvis using single phase Enterography technique CONTRAST: IV: 100 ml of Omnipaque 350 Oral: [address] Radiation dose: Integrated dose-length product (DLP) for this visit = 494 mGy*cm. CT Dose Reduction Employed: Automated exposure control(AEC) and iterative recon COMPARISON: CT abdomen/pelvis 06/21/2022 RESULT: GI Tract: * Ileocecectomy with midline lower abdominal ileocolic anastomosis. * Pneumatosis involving the ascending colon has overall decreased since the prior. Small bowel: Multifocal active inflammatory small bowel disease with areas of stricturing and luminal narrowing are overall not significantly changed as compared to prior CT 06/21/2022. For reference: * Approximately 10 cm segment of neoterminal ileum with wall thickening, mural hyperenhancement, and luminal narrowing with upstream dilation up to 4.4 cm compatible with stricture (602:22-25). * Approximately 10 cm segment of distal ileum with wall thickening, mural hyperenhancement, in the luminal narrowing without upstream dilation up to 3.6 cm compatible with stricture (602:26-29). * Approximate 5 cm segment proximal-mid small bowel along the left lateral abdomen with wall thickening and luminal narrowing (602:37). Associated submucosal fat deposition likely reflects chronic inflammatory change. Colon and Rectum: No mural hyperenhancement or wall thickening. Strictures: None Fistulae/Sinus tracts: None Abscess: None Ancillary Findings related to Crohn's : None. Abdomen: Liver: Few left lobe cysts, the largest up to 1.5 cm at the dome (2:18). Biliary: No bile duct dilation. Gallbladder is unremarkable. Spleen: No mass. No splenomegaly. Pancreas: No mass or duct dilation. Adrenals: No mass. Kidneys: Benign renal cysts. Lymph nodes: No abdominal or pelvic lymphadenopathy. Mesentery/Peritoneum: No ascites or mass. Vasculature: The celiac axis and SMA are patent. The portal vein and branches, splenic vein, SMV, and hepatic veins are patent. No aortic or iliac artery aneurysm. Pelvis: No mass, ascites or fluid collection. Bones/Soft Tissues: Mild retrolisthesis of L5 on S1, unchanged. Lung Bases: Partially visualized cardiac leads. IMPRESSION: No significant change in multifocal active inflammatory small bowel disease with stricturing and luminal narrowing since CT 06/21/2022. No penetrating disease. Persistent although decreased ascending colonic pneumatosis. No secondary signs to suggest bowel ischemia. 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: P[employer] Transcribe Date/Time: Sep 27 2022 8:57A Dictated by : PHI COATES MD This examination was interpreted and the report reviewed and electronically signed by: PHI COATES MD on Sep 27 2022 9:26AM EST [id number] [facility] NURSING PROGon 09-26-2022 NURSING PROG HNO ID: [id number] Author: Shun San RN Service: Nursing Author Type: Registered Nurse Type: Nursing Progress Note Filed: 09/26/2022 8:09 AM Note Text: PICC/VASCULAR ACCESS PROGRESS NOTE SERVICE DATE: 09/26/2022 SERVICE TIME: 0800 8:08 AM Requested to see patient who has had unsuccessful IV attempts, needs new IV. Using ultrasound guidance, A peripheral IV was started in the Left forearm with a Angio cath: 20 gauge. 1.25 inches in length, on first attempt. Brisk blood return and flushed without difficulty with 10 mL saline. No symptoms of complications. SIGNATURE: Shun San RN PATIENT NAME: José Miguel Carreno JR DATE: September 26, 2022 TIME: 8:08 AM PAGER/CONTACT #: [phone] [facility] Retail - Clinical Noteon Retail - Clinical Note [id number]: 127 [facility] ICD CLINIC CHECKon 3 ICD-Device Mfg BIO [facility] [place] ICD-Rhythm Normal Sinus Rhythm [facility] Lead1 Mfg BIO [facility] [place] Location RV [facility] [place] Model [id number] Acticor 7 VR-T DX [facility] [place] Model [id number] Plexa ProMRI S DX 65/15 [facility] [place] Pacemaker Dependent? NO [facility] Serial Number [id number] [facility] [place] Serial Number [id number] [facility] [place] ICD-Device Mfg BIO [facility] [place] ICD-Rhythm Normal Sinus Rhythm [facility] Lead1 Mfg BIO [facility] [place] Location RV [facility] [place] Model 770341 Acticor 7 VR-T DX [facility] [place] Model [id number] Plexa ProMRI S DX 65/15 [facility] [place] Pacemaker Dependent? NO [facility] Serial Number [id number] [facility] [place] Serial Number [id number] [facility] [place] No Panel Informationon 09-08 BLANK _ [facility] [place] Implant Date 01/09/2020 [facility] [place] BLANK _ [facility] [place] Implant Date 01/09/2020 [facility] [place] Pre-Certification Formon Pre-Certification Form [id number]#[id number]:1 [facility] Progress Note-Physicianon Progress Note-Physician Patient: GENNARO CARRENO MRN: - Age: 62 years Sex: Male : 1960 Associated Diagnoses: None Author: MD So, Viraj Colon Postoperative Information Postoperative disposition: Postoperative disposition: To PACU. Optimetrix number: Optimetrix number [id number]. Anesthetic utilized: General. Health Status Allergies: Allergic Reactions (Selected) Severity Not Documented AzaTHIOprine- Joint pain. Tylenol- Fever. Physical Examination VS/Measurements Pain Assessment: Controlled. General: Awake, Alert, Appropriate. Respiratory: Adequate air exchange. Cardiovascular: Stable, Normal peripheral perfusion. Neurological: Normal sensory function, Normal motor function. Assessment Anesthetic outcome No anesthetic complications noted. Adequate pain relief. able to void without difficulty, able to ambulate with assist, tolerating PO intake, no N/V. Review / Management Condition: Stable. Plan Transfer/Discharge: Transfer/Discharge Discharge when meets criteria ( To home ). [facility] Comment on above: Result Comment: Elec tronically Signed By: MD Rizzo Ahmad F\.br\Date and Time Signed: 06/19/22 16:28 EDT Progress Note-Physician Patient: GENNARO CARRENO Age: 62 years Sex: Male : 1960 Associated Diagnoses: None Author: MD So, Viraj Colon Postoperative Information Postoperative disposition: Postoperative disposition: To PACU. Optimetrix number: Optimetrix number [id number]. Anesthetic utilized: General. Health Status Allergies: Allergic Reactions (Selected) Severity Not Documented AzaTHIOprine- Joint pain. Tylenol- Fever. Physical Examination VS/Measurements Pain Assessment: Controlled. General: Awake, Alert, Appropriate. Respiratory: Adequate air exchange. Cardiovascular: Stable, Normal peripheral perfusion. Neurological: Normal sensory function, Normal motor function. Assessment Anesthetic outcome No anesthetic complications noted. Adequate pain relief. able to void without difficulty, able to ambulate with assist, tolerating PO intake, no N/V. Review / Management Condition: Stable. Plan Transfer/Discharge: Transfer/Discharge Discharge when meets criteria ( To home ). [facility] Comment on above: Result Comment: Elec tronically Signed By: MD Rizzo Ahmad F\.br\Date and Time Signed: 07/26/22 07:52 EDT Progress Note-Physician Patient: GENNARO CARRENO Age: 62 years Sex: Male : 1960 Associated Diagnoses: None Author: MD So, Viraj Colon Preoperative Information Anesthesia Preop Information NPO 8 HOURS EXCEPT GI PREP AT LEAST 4 HOURS PRIOR TO PROCEDURE Anesthesia history: Patient history: No prior anesthesia problems. Re-evaluation prior to induction: Initial evaluation reviewed: No significant change. Anesthesia results ANESTHESIOLOGY VIEW 06/19/2022 13:41 EDT Hourly Rounding Yes Promise to Return Yes 06/19/2022 12:41 EDT Hourly Rounding Yes Promise to Return Yes 06/19/2022 12:25 EDT Temperature Temporal Artery 37 DegC Heart Rate Monitored 87 bpm Respiratory Rate Monitored 15 br/min Systolic Blood Pressure 114 mmHg Diastolic Blood Pressure 78 mmHg Blood Pressure Location Left arm Mean Arterial Pressure, Cuff 90 mmHg SpO2 99 % Pain Symptoms Self Report No, able to self report Numeric Pain Scale 0 = No pain Numeric Pain Score 0 Respirations Unlabored Respiratory Pattern Regular Respiratory Pattern Description Regular Chest Motion Symmetrical Activity Mary l Moves 4 extremities voluntarily or on command Respiratory Mary l Able to deep breathe and cough freely Circulation Mary l BP +/- 20 of preanesthetic level Consciousness Mary l Fully awake O2 Saturation Mary l Can maintain greater than 92% on room air Mary l Score 10 06/19/2022 12:15 EDT Heart Rate Monitored 97 bpm Respiratory Rate Monitored 20 br/min Systolic Blood Pressure 100 mmHg Diastolic Blood Pressure 80 mmHg Blood Pressure Location Left arm Mean Arterial Pressure, Cuff 87 mmHg SpO2 99 % Activity Mary l Moves 4 extremities voluntarily or on command Respiratory Mary l Able to deep breathe and cough freely Circulation Mary l BP +/- 20-49 of preanesthetic level Consciousness Mary l Fully awake O2 Saturation Mayr l Can maintain greater than 92% on room air Mary l Score 9 06/19/2022 12:10 EDT Heart Rate Monitored 86 bpm Respiratory Rate Monitored 13 br/min Systolic Blood Pressure 110 mmHg Diastolic Blood Pressure 73 mmHg Blood Pressure Location Left arm Mean Arterial Pressure, Cuff 85 mmHg SpO2 98 % Activity Mary l Moves 4 extremities voluntarily or on command Respiratory Mary l Able to deep breathe and cough freely Circulation Mary l BP +/- 20 of preanesthetic level Consciousness Mary l Fully awake O2 Saturation Mary l Can maintain greater than 92% on room air Mary l Score 10 06/19/2022 12:05 EDT Heart Rate Monitored 89 bpm Respiratory Rate Monitored 18 br/min Systolic Blood Pressure 94 mmHg Diastolic Blood Pressure 67 mmHg Blood Pressure Location Left arm Mean Arterial Pressure, Cuff 76 mmHg SpO2 96 % Activity Mary l Unable to move extremities voluntarily or on command Respiratory Mary l Able to deep breathe and cough freely Circulation Mary l BP +/- 20-49 of preanesthetic level Consciousness Mary l Not responding O2 Saturation Mary l Needs oxygen to maintain greater than 90% Mary l Score 4 06/19/2022 12:00 EDT SN - Proc - Anesthesia Type General (Modified) 06/19/2022 11:58 EDT Temperature Temporal Artery 36.6 DegC Heart Rate Monitored 96 bpm Respiratory Rate Monitored 15 br/min Systolic Blood Pressure 92 mmHg Diastolic Blood Pressure 68 mmHg Blood Pressure Location Left arm Mean Arterial Pressure, Cuff 76 mmHg SpO2 95 % FLACC Face No particular expression or smile FLACC Legs Normal position or relaxed FLACC Activity Lying quietly, normal position, moves easily FLACC Cry No cry, awake or asleep FLACC Consolability Content, relaxed FLACC Score 0 Respirations Unlabored Respiratory Pattern Regular Respiratory Pattern Description Regular Chest Motion Symmetrical Breath Sounds Auscultated Anterior only All Lobes Breath Sounds Clear Patient Airway Status Patent without support Activity Mary l Unable to move extremities voluntarily or on command Respiratory Mary l Able to deep breathe and cough freely Circulation Mary l BP +/- 20-49 of preanesthetic level (Modified) Consciousness Mary l Not responding O2 Saturation Mary l Needs oxygen to maintain greater than 90% Mary l Score 4 (Modified) 06/19/2022 11:55 EDT Anesthesia Record 06/19/2022 11:53 EDT Main OR Intraoperative Record IntraOp Document Type FT (Modified) Main OR PACU I Record PACU Phase I Document Type FT Main OR Preoperative Record Holding Area Document Type FT (Modified) 06/19/2022 11:51 EDT Systolic Blood Pressure 102 mmHg mmHg Diastolic Blood Pressure 76 mmHg mmHg 06/19/2022 11:50 EDT Heart Rate Monitored 109 bpm bpm Respiratory Rate 18 br/min br/min SpO2 96 % % 06/19/2022 11:48 EDT Systolic Blood Pressure 107 mmHg mmHg Diastolic Blood Pressure 75 mmHg mmHg 06/19/2022 11:45 EDT Heart Rate Monitored 104 bpm bpm Respiratory Rate 18 br/min br/min Systolic Blood Pressure 103 mmHg mmHg Diastolic B (more content not included)... Normal [facility] Comment on above: Result Comment: Elec tronically Signed By: MD So, Viraj Colon\.br\Date and Time Signed: 06/19/22 16:24 EDT Progress Note-Physician Patient: GENNARO CARRENO Age: 62 years Sex: Male : 1960 Associated Diagnoses: None Author: MD So, Viraj Colon Preoperative Information Anesthesia Preop Information NPO 8 HOURS EXCEPT GI PREP AT LEAST 4 HOURS PRIOR TO PROCEDURE Anesthesia history: Patient history: No prior anesthesia problems. Re-evaluation prior to induction: Initial evaluation reviewed: No significant change. Anesthesia results ANESTHESIOLOGY VIEW 06/19/2022 13:41 EDT Hourly Rounding Yes Promise to Return Yes 06/19/2022 12:41 EDT Hourly Rounding Yes Promise to Return Yes 06/19/2022 12:25 EDT Temperature Temporal Artery 37 DegC Heart Rate Monitored 87 bpm Respiratory Rate Monitored 15 br/min Systolic Blood Pressure 114 mmHg Diastolic Blood Pressure 78 mmHg Blood Pressure Location Left arm Mean Arterial Pressure, Cuff 90 mmHg SpO2 99 % Pain Symptoms Self Report No, able to self report Numeric Pain Scale 0 = No pain Numeric Pain Score 0 Respirations Unlabored Respiratory Pattern Regular Respiratory Pattern Description Regular Chest Motion Symmetrical Activity Mary l Moves 4 extremities voluntarily or on command Respiratory Mary l Able to deep breathe and cough freely Circulation Mary l BP +/- 20 of preanesthetic level Consciousness Mary l Fully awake O2 Saturation Mary l Can maintain greater than 92% on room air Mary l Score 10 06/19/2022 12:15 EDT Heart Rate Monitored 97 bpm Respiratory Rate Monitored 20 br/min Systolic Blood Pressure 100 mmHg Diastolic Blood Pressure 80 mmHg Blood Pressure Location Left arm Mean Arterial Pressure, Cuff 87 mmHg SpO2 99 % Activity Mary l Moves 4 extremities voluntarily or on command Respiratory Mary l Able to deep breathe and cough freely Circulation Mary l BP +/- 20-49 of preanesthetic level Consciousness Mary l Fully awake O2 Saturation Mary l Can maintain greater than 92% on room air Mary l Score 9 06/19/2022 12:10 EDT Heart Rate Monitored 86 bpm Respiratory Rate Monitored 13 br/min Systolic Blood Pressure 110 mmHg Diastolic Blood Pressure 73 mmHg Blood Pressure Location Left arm Mean Arterial Pressure, Cuff 85 mmHg SpO2 98 % Activity Mary l Moves 4 extremities voluntarily or on command Respiratory Mary l Able to deep breathe and cough freely Circulation Mary l BP +/- 20 of preanesthetic level Consciousness Mary l Fully awake O2 Saturation Mary l Can maintain greater than 92% on room air Mary l Score 10 06/19/2022 12:05 EDT Heart Rate Monitored 89 bpm Respiratory Rate Monitored 18 br/min Systolic Blood Pressure 94 mmHg Diastolic Blood Pressure 67 mmHg Blood Pressure Location Left arm Mean Arterial Pressure, Cuff 76 mmHg SpO2 96 % Activity Mary l Unable to move extremities voluntarily or on command Respiratory Mary l Able to deep breathe and cough freely Circulation Mary l BP +/- 20-49 of preanesthetic level Consciousness Mary l Not responding O2 Saturation Mary l Needs oxygen to maintain greater than 90% Mary l Score 4 06/19/2022 12:00 EDT SN - Proc - Anesthesia Type General (Modified) 06/19/2022 11:58 EDT Temperature Temporal Artery 36.6 DegC Heart Rate Monitored 96 bpm Respiratory Rate Monitored 15 br/min Systolic Blood Pressure 92 mmHg Diastolic Blood Pressure 68 mmHg Blood Pressure Location Left arm Mean Arterial Pressure, Cuff 76 mmHg SpO2 95 % FLACC Face No particular expression or smile FLACC Legs Normal position or relaxed FLACC Activity Lying quietly, normal position, moves easily FLACC Cry No cry, awake or asleep FLACC Consolability Content, relaxed FLACC Score 0 Respirations Unlabored Respiratory Pattern Regular Respiratory Pattern Description Regular Chest Motion Symmetrical Breath Sounds Auscultated Anterior only All Lobes Breath Sounds Clear Patient Airway Status Patent without support Activity Mary l Unable to move extremities voluntarily or on command Respiratory Mary l Able to deep breathe and cough freely Circulation Mary l BP +/- 20-49 of preanesthetic level (Modified) Consciousness Mary l Not responding O2 Saturation Mary l Needs oxygen to maintain greater than 90% Mary l Score 4 (Modified) 06/19/2022 11:55 EDT Anesthesia Record 06/19/2022 11:53 EDT Main OR Intraoperative Record IntraOp Document Type FT (Modified) Main OR PACU I Record PACU Phase I Document Type FT Main OR Preoperative Record Holding Area Document Type FT (Modified) 06/19/2022 11:51 EDT Systolic Blood Pressure 102 mmHg mmHg Diastolic Blood Pressure 76 mmHg mmHg 06/19/2022 11:50 EDT Heart Rate Monitored 109 bpm bpm Respiratory Rate 18 br/min br/min SpO2 96 % % 06/19/2022 11:48 EDT Systolic Blood Pressure 107 mmHg mmHg Diastolic Blood Pressure 75 mmHg mmHg 06/19/2022 11:45 EDT Heart Rate Monitored 104 bpm bpm Respiratory Rate 18 br/min br/min Systolic Blood Pressure 103 mmHg mmHg Diastolic Blood Pr (more content not included)... Normal [facility] Comment on above: Result Comment: Elec tronically Signed By: MD So, Viraj F\.br\Date and Time Signed: 07/26/22 07:49 EDT Coding Summary.on 06-29-2022 Coding Summary. CD:[id number] Ww+P GhlYWQ+KZ5VIRYuY93wpYLew Y3jH6FZJXzRNuwjVOMBAQeFP qJbpkBpLR4ciCVmJMTa IC8+XY5hRNJuFsqvrOIop6R1 tSZ0K37qns4wEPkvtUC5XXEl RjHfolghe6uyaBr3PAoxLizb OyBt IBKqqW83MIR0bU05Jz52wGVi fSDbl9zbaWa3CvMqEDHuLEX9 xDxgJQviw4VjKHAxQ78ozHYg c2U6 KJRlmLctqBDaFsJocGM9zY4q BZmxlgxwo4khfrsfQvx0yd25 bTOoo9T5dOA5B1XdbdI3UYTc bGQg ZxztaFDTkG4dnouxc3pnvlaa MmFnITSsIQw5MFz9CXUzqQzc WcVrKA70SDL5NHVzlpNaN3Jl LWFs ySlwKjR6q0H8Vv5YI3OAVuxp N6JFDSYJQGrebGZ+SQ56ff44 N2ObImgmPrh7APBzKJK3vXP0 aD0n XSXiVBeds8W9rFC3P5QzmeNt sa3xv7nwDFOyNVzmE27yfMUp z5Y6DSVbcVF6HXKuoBzuYlMi aG93 Oyc+UVKlzKafc8NwXievf1tk t8dtwVk9VzagZVCbmhOqwFzp UMH8d1AgKe4aQGMkhPW7bID3 aD0i ExIkKzK6ZUgdZ250VeYujJWa IdckN01tT2CwyII+PHRyPjx0 TJVmlGssVQ2tC5XuRVRaczpu bGVm nEubGH9lHFHsfmesARZnqI0m YIIfK4w3RxYoNvK6ROxmG3Po XBUpugntBl44tF9zGgDfSfH9 MGlu G1XcajS0IKFccOMvPZknDWF7 A97bu2D4SWDbCXKdZOU5hBI7 zZ4dlLkaygkujZGxePunhiZf dGlj AQbfJEoaW828DXMqqHpzLeGl ZGluZyBEYXRlOiAgMDQvMTkv MjAyMzwvdGQ+NOPaZOX4tVvc PSAn gHZlQKxnDz5vzQyxxVyuZR0d DPEfnjybKQIibO8oKSTycTPo xUunTZ0hCFIrvuevq415RqFr MHB0 JPWwjOYmG6KezR9wFkOfLPXo DGGbQ7KrtXGfQMvgE024GVvb DdT0NDHlooLwA0ZvTGRsfDva OiB0 t4E1Xz9Jg5TtpdjpU1IguBVp IdUfKmieWTh5Y0DfYvekdEO+ NH41ZTOyGM80MSg9SCD1yGyy PSdi VCMsN3LffS3pJnWvSMXwXTQs Oyc+PHRhYmxlIHdpZHRoPScx FXJpTpKsrPvxYT6rGm1jSUJu LWNv sUptaQJpGkMgi9coBRYcHHgf PE3tjXxuP7LngPK2XKOjz8q8 Sn34Q31nE2AkaKX+PGNvbCB3 aWR0 nX9yCkZfKpJ9VAeqK419HrFf fISlUjyxr6isk0lgmIm3GtD4 FGWpmxQfwOigEWL3i7XfDe91 Y29s IHdpZHRoPSIxNSUiIHZhbGln cn4nsW6aTj0+ARDyvAA3aGR9 rY3cPuFtMeY4IEozO537OgKg cCIv Tibni4hok4ajwGi6PuQrICDs izCrbMawTSK0v1CmOj71D5Wm iAudz6ZaGgw7fv91dZBgr4X6 bGU9 C8EdHLKvlwrqhFXklFzmXQ5b INXkqaimHIQylO1cVGMrW6b9 FsNtAiK8CHinO1IpjhN9YJGr bGQg YSKyxUCLhP4jcbhql2jvrjfw PzZmSIHxFHr3AWk3IVMpbIzl IiToCZM5BuY6LND0iXDisQ0q bGln kkkziO0mIkb+BQE5yLUeqXIY ZN4dVcplqCH+UEXxMAW5kZcc KWjpOFCuuA1oDWKqD1o1LlDq LjA1 EVdzX2EmtrO3HBZnyEDxVCPf aONMnG5xehfjc4lotnhtAmBz KOAeTFw1IHg1HGMqdTsuYkJs ZWZ0 LjH4CKZ1vOHhbX2jpNqsjrpv nX5eXgm+WutocGfoGRY3CSo1 J5OsQfo9KIHxmIhcQG0gsAPg ZGlu Zj4omUbuhNdbPM7lGBHajskx c633NtQwf1zbRRIecRFjJBnc KKD2V69xx9C0AVTyCNVwPFS2 dGV4 wK8tuRbgcsbtyPXszPrvzxYg kEvfHRnaNNahF962VRBvvWes EiBwDDx3X6VnKof6CHPwmHhv ZT0n bJTbSFhvEv0bxVpljKyhEE6b GHNqiirmn240WkJma6duOUIu rLHdZHvhPOV5P13mv0A6LBRf MDAw QGQ3kCP8hH7whPgsennkyHIo gVcycyUkvHqiGUenNIcvG591 LOOvkEicXiRiqOi7C7AnPgz3 ZCBz aFwbZZ7jwBOqZEvdBp8mfToe eCdyTW4qWJCtydhsp832FwLs v8ygUGLurKJdLGlrRCO6X98h b3I6 REHnEVQePFT9mFU4cQ6hwFpq bjogbGVmdDsgdmVydGljYWwt CJzfH037WLWdwNcpJwCzeCcy bnQg LVeaIQn1K4TnFpuzbLX+PC90 FBLiLV98wEDmuLGfg3pyoWi9 FrVvHUBbQNF8jKarFSivb9Bk ZXIt O97ctERqb9T4QXDgdThgqSEc IrYoyVP0qD7oCKbdejdsq1uw ythzBmvhx0uqny24hX53U38a IHdp OUEaTLDmIMSaVQBcoKfqnx8l hQ2kSj3+XGVpuDR7mCF5sP8j BYApNjR0MSraP482SqGuaJJg Pjxj f6hhw6onkYo3YbB5LFQwwtLn dQrgJMB6m7TmXx87O36uKLao OQRrDCVpFHLvFNXyrTygck0d dG9w Ii8+RFBtpAV0bUS0zF5xKzCy EsE0EZroX506OyRdnFIvFzyw V98lU3RxvSH+RBMoNuy3HZXq dHls OC2gyLTrWCjuJk5wJTG3XpWg DpYgJUdkW1BqUTHummeirpdd yNY0LEGvNVJlaF83Xy9ciRoh MTBw cARRyZ1smlsjc9thswtpFgBx QJZzGJm0JSd3KKEqwMudJkOg KXD5XkC7OGC1qWCwjL9bsEls bjog xZ7bB5LdOMQzgajxWh70gM3n AiXlCbK3VShyJrw+VEVBLCBE YXtAYO47SV26dLZzk6A1wUT5 J3Bh ODXnaqqxxhgqjCG5MPUnFHAz mS29cVGpWXcpPb2rj8J7b389 PXMpPFEthL85Sk8zvRntLVAe dCBU cO4ofohqd1zkajbmLkUiMZRy TVm0SZx3CGOtdMvoNxLdEQK3 AbK3TAB8vIHnpV0auUxsbdfa dG9w Oyc+ACWmYNUdSJi9YlwyfYS+ QJOcGDK5uCngJKaiAYRfjB5a AEFnV1o4LuIlYaF7CNgpH9In ZGRp twtcCx06iK4oZmUkDcH6OKdy K9BzlvS9KOJbwZOjRJgsUEL4 M54dp3Y1CYHyNKRvYPQ4aMK4 dC1h bGlnbjogbGVmdDsgdmVydGlj ZAqhGPizH804VSQmrIpbLeZb JIocRSEbLL52ZQ81cSUpl6M4 bGU9 I2DlOFUmmwlnzcnvsVE6MBIw WWHffM45wNXaBEleNk0op3A4 h676SVEkPVIkaZ20Bv6gtOee MTBw vOVFqS7ffplcb9rmhjmrTlGl LRKpSJr0EWu1GCSdiIrzDjVd KXO4TvC7RIC9kKAlrK3jwPym bjog cU2rGuy+TWFsZTwvdGQ+PHRk SZI4dKayMWhtFEHfbP8sRIWh F7i6CjVlBoR9JLivI7YtUBJf bmct Ks71eP0tRyNjWtR3EUwnC7Cq akY9SBJleHAkZXrgLQL0O71c y8D9MLKbFQOdCKW2oNT4fJ1a bGln bjogbGVmdDsgdmVydGljYWwt KBjzN033OMEonZkkLy1vn0Op qhP6aN3bVP86FP29A6EhQltj dGFi bGU+PHRhYmxlIHdpZHRoPScx EJImRnIooVyjIR2nJd3zQOBv UTDprLsviHOwHgBhi2ppGZZe ZTsg OW2ltPliT6OtlKN0VZOpi7c5 Gf14J24lL1RftBH+PGNvbCB3 mCY7dF7wQzTeFzO7OVibX044 InRv bDMxQquvn2mno1tihWd5MyLs VPNgeiAysJufWIL7i2HtVy42 X24tPQeyYXQrCKKyYTTcSRKp bGln bz0gwA8cZt5+XXYblDW0dQW0 aT3qHpAhLwP4OAdsR176JpMi vYVlQhaqF00bD2ClqUC+PHRy Pjx0 HFYtvEguZG2tsPMaBHuiGa8n FST1HrTjJiIdUMulO5ElFZFg abnbgtresPL4JNVsUZBsyL75 Zm9u lUwsSj1iLLIhVGU5PGMxiBEr E9TjdZ8tKrXjLGOuYGDbR2Ar vQOaXCkcR654WQxxFbL9OIVh cnRp I1JiFAMvoEquGbM8h7Z8Sp2T oZnsrQIzSU2uWlLmSMp6K1He Hpf0YIElsXacIP3xzCDvOZbx Zy1y nHxfpNybEI1zYEKsryujg455 FlFgu3ucWPElwLWwKJwiJXN2 T77dh3W4YNLqCPNzCPQ7tUR1 dC1h bGlnbjogbGVmdDsgdmVydGlj JCxmQYacF781IFEshLjwHhSU Kpz5N5ThOhj3FBYpxLgcPZ4k cGFk QWscSg1nuCbjeMjzOF9wUKUm xntdh085QcNsp0iaHOAdpGQt UGepNUV1E37mu3D8MOJhYXRl MDA7 tOX7dI0lmCwnjnoatEUepInv zpDkwPylSDevAUinA454FNBg aTceJs6GPhe5H8DfAhr7PPIx dHls PO6emEAvKItzGx9zyKwndXwv CK0nXODznvtkv415MoAks3jg VOWpvXIsHPzsWEU9A28ti0V5 ICMw GGZlWLO2zUN6yQ4yrAvehlhq bGVmdDsgdmVydGljYWwtYWxp E233XFLnvJvwObCiyKHrQoch dGQ+ NW89di45O6MyErixTdk9WTPc FHV8sDA9yA7yCNFtZZhkt0V8 vRD4I2GappSvgt0zp2nwLYFh ZTog Y03kdGKn (more content not included)... Normal [facility] IntraOperative Documentson 0 06-24-2022 IntraOperative Documents [id number]#[id number] :[facility] Lab Reportson 06-24-2022 Lab Reports [id number]#[id number]: [facility] Coding Summary.on 06-23-2022 Coding Summary. CD:[id number] Ww+P GhlYWQ+EO3LIPStP03yuYEty G4pF5QTNJqFYmahCRLSBCwLP zBrsoZtLR5epSTgHHXy IC8+MC8xWMOeFpezfHJey2F7 qQK2H90nqr8jZMzsbPZ6RLXq ObNvudckb8xkoZs9UXjpGggi OyBt GDRxaW41MRS7cQ08Zw87aPLm nLUcj7ffvKs9XmIaXHQoEZB2 fJfkDRxsx5JnOVDrX47vrPTv c2U6 XPIdqLxvcEDhVpYyzMU0tM1d ICppgzaja5rapemdVen3sq87 gEUvd7I7pBW8A9YesuR2RJRv bGQg NtudkJKWxZ2ziuhtp8dxaxik AcIuOMOqLLv6PNh0GRJxtPgp KyCoCE56IHK4HHRgrrRnK4Wc LWFs qAfqOrY3k5P3Oh8OJ7ETWcvv Y6ULAVDTUVapeJW+RX69ma54 P4OtZrqtMvk4GDGpCQG3iVW6 aD0n VFFkRLmdj6N9pFN6E6RoqpOj [id number] e2I7GFJuwHF1QVOfqIgmKzFu aG93 Oyc+MQYmiTxzu4EpZeqvd6pa z6rshEl2PaqfTYNpwhXbhQkc RZG8c9DaBr7bDWCkpCF3tPE5 aD0i IwVbOmR5FUhtT777UyJqaCVe WtthM35hM5SeqQS+PHRyPjx0 HPXkaOawJV6yU3TjUCKczres bGVm oJuhEA0oLXUujsjuFNTioJ8n VZHtO1s9HsGlWfG6YDzkI4Wv ACFslwsaDh98xG0xTsWnNqZ5 MGlu F2JzilZ4JMOfpUJsODuwHWP7 Z79ls6H4BSTjHGBeIQA5qFS1 qW0elKghyduohZSuzDfvpiOi dGlj HXliLZxeR620SMOmwAyvIqEk ZGluZyBEYXRlOiAgMDQvMTMv MjAyMzwvdGQ+HQMoVVD9aSvo PSAn hBYcUGecKp8uqFxpeOkjMX0i DAYmpyroLRYfzL9zIWZxtZXd qMrrKR0vBJXxdhbwf182LpFi MHB0 XAXggLBcF6XxiH6sRoKtECVl BSSeG4JcjXTsKVvrM355AYhx GgX9MDBktkJrT8MrXLPpjQvk OiB0 i5K0Rg1Qh4XvqjxfW9TvhHDn HoXeFwtjCSw8S4PvAzhwrOU+ PB00SJNqZN64VKn6WRW1lTuj PSdi LOIhA9MnmT1dTvGaZPOzEVJb Oyc+PHRhYmxlIHdpZHRoPScx FFIcZcXonIedIS9vUn7nEWOs LWNv wEcgjYWhYiDix7jtDPApQYbr TI7mkSxcS6IlxTL8VQVel4z5 Va50Q07aF6WrcLV+PGNvbCB3 aWR0 iZ4fLpWmYjB4PIfvA960QqPs sCQzHgytu5kcc9grdQo0RvF4 SGXwacHbdQoxMUC0b9IbTz12 Y29s IHdpZHRoPSIxNSUiIHZhbGln pe6nmN9mCz0+WPIrqAW8wAY9 bM1qQnSjAlK1BApmK974VeQc cCIv Sqgnr3tos2msiQn0BzQsNGLw utMweCmpYDN4q0BuKz40T0Tx bIrkl4UmEun8xo21uPWxl7Y5 bGU9 J3YjGOTlidfbhTDweKavRS5r VTJbgitaOQGcaI5kRJAaR6q2 HfHtGxR0REtaE5VbhiD5TPEx bGQg SNVmyGLVnA6mhnmfn5edqojr EiYdGMNoAHx2HSg0DTKcmPdo HxYrXUT6ApT8PJC3tJIfkX0o bGln xcngjA1hWwh+LCD4kLZrxFGX XH6pIjrtsHC+NLJyWNA1iPmw ATyrPMTiuI5sVVZoW9m7BdVu LjA1 CTixS8EhbrQ5AUMxiVVyQCUb zTIIyA7yizloy6xlgwzkFaLl STRxCLt2POc8JGIvbTwtKvVo ZWZ0 CgF6OGO4dZTtkH8dyYphtada rW7yPgh+YmltlPatHPX2CDf7 R5CcWff2YSCxrDlyWZ8iaHWb ZGlu Cp4hbJdfaWbxPU9bLKOcjrom r505OpBkn3xrWIWhpHZbSRbi RYY0J38nj8H4VPZcIDWeZSR1 dGV4 vU1hqUoqbyarxWEqxOmlhzQl pJifDZsdJXcmH467SSSxdQgg ZuQuYXv1K5FjPqv0MRAkyGod ZT0n kSSeGZfoZw8rhGzkeOwsRS0d DQDqneztc648TxKdb3gwBQGj jZShJBvdMUQ9X47qb8B9QMEv MDAw VDW0dDI3qM7rtGanbztusNNs lTjuhkXvfKmzOEzgLTndX351 ICMzwHfuHrLfyZi7Y2IwZlv4 ZCBz lXkpYN3qzMAyPJdbQg5qyQds xZweNB1cRIHgkymsg186AeEd h7ioOQHinCKfALdkUDB2N72v b3I6 SQNaZLXfNNU5cHJ4yO9cvWgk bjogbGVmdDsgdmVydGljYWwt NIyxC598CHQkvAbkMtMdxSdo bnQg JQsqBOn1H1EbBnxfzOT+PC90 XFLzNL39iXJhgNUyp6gztUy9 JpBkUAMlAEH0lXnmZSvyr7Nj ZXIt J48ajENdi3Y6ZNXmiXxnsMTy NpIraDV3oH0mYTfflsamb0cv fsbhHncno3vvwu49wX57T12i IHdp FHRpZSRdXOVaTUYsuUguvs9b zM3sNc7+GGLfgFL4bQE2fT0g UPEtJgG5SLtaI875TkKngRGt Pjxj j7tkg4rmmYw8JdG8COTmqoZy sGswSGS7u6OoXw44N06pSMkq OCExEGAgHBNyUYLudRmvvo3y dG9w Ii8+JLByuWO6rRD2iK3fKrAx DaN2UVrrP408DhFrhUUvYdyx W77dL4UsvJL+FXUhQpl0IHOy dHls MV8tvXFkMNgvYd6cDHZ7MrFj SlBpTJnjW2CwYIGfiqnxghbb gCN1GCIrWLFztB01Hf2vnUwg MTBw rKIMxA1kcmclp2uvxmlaYcWa UWOhKMd9VKz8KKHuoTmjHsZt JRS3MxD2ASX0kHXvuP8vsZic bjog bB6zT1HfATNdqbqvMu06fK4u PlYzHoC8BZqhSwv+VEVBLCBE JJjSLO74UA99oEDxs0G5mGJ8 J3Bh CCKarigtucyebXY0FRNcFULf fA45tZBfWQbrEp4vu0Q8y050 KAKbWKAezH10Lk0tnAosXMQf dCBU hA7dzwbzu1yxpawbRwCbIZJr PIi9VLg1SABlqQlwLqAvESO9 EuV8XAT2zRCydO0pxJbgmnnf dG9w Oyc+BOByFRAuAKq1TtktkEN+ SFJlHKW6tHbkZJayMFFqfI0n FRSpZ3m7EfUbSiF4CIniB9Pb ZGRp qzjsTq08cZ7aLfXkIvG4GElt Y1HtazS6LCClgXCdIUmePKZ5 V30gm5O0LDLzLWPrIXL1qJE4 dC1h bGlnbjogbGVmdDsgdmVydGlj FSstSPraE326YLPrhKqmRwSc LFviXEVkSV47DV88lHLth9H5 bGU9 S5GwZGDlubhaqxcsyWD2SWQn OIVvjN80iUOuVDbqSo0qp5Z6 z044KDRoJNXqsR65Rj1bjFox MTBw hXDZfN5zilmss2gfyfiwZsLj HKXdRBh8ZXl9ESDmdSdwRhTj SGN2JcD6QPU8lRPtnN3ceAvw bjog rA1rOlg+TWFsZTwvdGQ+PHRk JHR9uKffZUefGCRgoB2zTEEf E5z2MnHpTwD7KEzjM2WnXBOo bmct Sa83gX4rUsXiHwE1CWvmH6Ei umE7EHFwlDMkPQcuQZG3M07j g7D8MVKsUEJpHIX6vMI7jU0g bGln bjogbGVmdDsgdmVydGljYWwt JJkhL666VHWucDdrDpsxdZD0 aWVudDwvdGQ+MR65gw07J1Kn Ymxl Izj7OUKiBXX1xCH8cT8eIVCf JMyvw4Q2wDO9Q6EtjyBeom3n h1koCYRoRFquX20aaXBdl4U3 IGVt wMW0YGVedWfyLvDmnQ64Jny+ LSAvfRota3KaUfrnp6jbh2hh zFf9FqKjPULfyhJfvAwlVVW9 b3Ai Op78B35sKRazGZAqMKOxQTEk LRRgjZgtrg3cgE2yUn3+PGNv jKN0oJI0oI7nTtKxBkG3LKry Z249 PyXxzAQhAvwub7zth3lxgNf6 AdSuRRNbgpXsbOhxGFH0n0Qg Xw55P1ZamNtnx6NeJoo8sv44 dGQg c6Z8iNN6L3VpYFXwbbwdfCCo lZtaIR7tNDEjotwhPUCacF1g XOLfT8m7SuTxKnN2USddU8Tp bnQ6 COKadIRwPPCfdLPGqX3sculn q8hpxfxuWpRqUXWsOXt0URh8 POFkpDjyCdDfHIV0QiZ0XRT8 aWNh hT1nfKrmhkyvnZ2xKas+UGh5 z3yxmCOvUR6avTT4SH07WM44 yIOuv4Z6aZK1B6XaUNCmtyny cmln vFR7ERCpPPVtdL68Wo4exDei Mt0vTEVxPJW8RCAlyZQhN5Pb eK5pTcWvQDJbVJEvZ0FzeBDe YWxp F910YClmDqN9HLNlskOiG8Yt KPYkzSkqYrV9v4A5Fj0UGP65 PA95EE94vSUmc3T0pGT9G9Ne ZGRp mxkfynhagTF2TVBfNYDuhT52 Hl3dgPipJr4kYQEqDCB8WXRn bZRuV6BxqV8kBuOmSAOkASQv O3Rl oARcBVcnC921BWsmTbV1AXOv pxFgU6ChQMBusRorFbX4h5I4 Tb2PZn73FE83NA82wHKmn8Q3 bGU9 A9QmDDIhtljtblpnzDS1QIKw WQUeuK99Vh0hvSgdYs4eKFRo XHZ5SAOooHNnR2DasF4zPiRb MDAw OMZrV9UwnSXsZGgwI096GLpb VoA2DJCfjvWdL9QiFVGrfVte XrI3k1I3An3FEMmhhzh4X9He Pjwv dHI+SD80FNXrTR96uEItjYSx b2yyaFz4ElWkGOLyYBO3zIqq SDgtq6RwWZYpT24efYRxu1O5 IGNv bGxhcHNl (more content not included)... Normal [facility] IntraOperative Documentson 0 06-23-2022 IntraOperative Documents [id number]#1.00CD: 127 Normal [facility] Consenton 06-22-2022 Consent [id number]#1.00CD: 127 Normal [facility] CHEMISTRYOrdered By: Lab ROP User on 06-21-2022 Glucose [Mass/Vol] 154 mg/dL High 55 - 99 mg/dL [facility] POC Subsection Comment on above: Result Comment: [place] TAYLOR POC Device SN [id number] Invalid Interpretation Code [facility] POC Subsection POC User ID [id number] Invalid Interpretation Code [facility] POC Subsection POC Username EDY MCKINNEY Invalid Interpretation Code [facility] POC Subsection Capillary Glucose POCon 06-11 Glucose [Mass/Vol] 154 mg/dL High 55-99 [facility] Comment on above: Result Comment: [place] T[place] Performed By: #### 2 [id number] ####[facility] [address] [place] [address] Consent for Blood Transfusio non 06-21-2022 Consent for Blood Transfusion [id number]#1.00CD :127 Normal [facility] Discharge Documentationon Discharge Documentation [id number]#1.00CD :127 Normal [facility] Hemoglobinon 06-21-2022 Hemoglobin (Bld) [Mass/Vol] 7.3 g/dL Low 13.5-17.5 [facility] Comment on above: Performed By: #### 2 [id number], 9060122, [id number], [id number], 1656184, 1056105, [id number] #### [facility] [address] [place] [address] Insurance Correspondence Off iceon 06-21-2022 Insurance Correspondence Office [id number]#1.00CD: 127 [facility] Interdisciplinary Note - Rodolfo e Manageron 06-21-2022 Interdisciplinary Note - Single Corner [employer] CRM spoke with Dr Traore and patient left AMA this am. . [facility] Comment on above: Result Comment: Elec tronically Signed By: Stan GRIMES, Nighat\.br\Date and Time Signed: 06/21/22 10:33 EDT Main OR Intraoperative Recor don 06-21-2022 Main OR Intraoperative Record IntraOp Document Type FT Summary Primary Physician: Brady HELLER MD Finalized Date/Time: 06/21/22 14:25:44 Pt. Name: JOSÉ MIGUEL CARRENO/Sex: 1960 Male Med Rec #: [id number] Physician: Betty CHACON DO Financial #: [id number] Pt. Type: I Room/Bed: S323/01 Admit/Disch: 06/19/22 21:41:46 - 06/21/22 07:00:00 Institution: Case Times FT Entry 1 Patient Times In Room 06/20/22 14:57:00 Out Room 06/20/22 15:08:00 Procedure Times Start 06/20/22 15:01:00 Stop 06/20/22 15:06:00 Anesthesia Times Start 06/20/22 14:57:00 Stop 06/20/22 15:08:00 Last Modified By: Nakia Ballard RN 06/20/22 15:09:10 General Comments: 06/21/22 Chart opened to review and send charges [facility] CSFA Case Attendance FT Entry 1 Entry 2 Entry 3 Case Attendee GER MALLOY, Brady Dejesus CHIEF TECHNOLOGY OFFICER, Elio GRIMES, Nakia Meeks Role Performed Surgeon - Primary CHIEF TECHNOLOGY OFFICER Licensed Psychologist - Primary Time In 06/20/22 14:57:00 06/20/22 14:57:00 06/20/22 14:57:00 Time Out 06/20/22 15:08:00 06/20/22 15:08:00 06/20/22 15:08:00 Procedure EGD(.) EGD(.) EGD(.) Comments Dr. Perry supervising Last Modified By: Elio RN, Nakia Ballard RN, Nakia Ballard RN, Nakia 06/20/22 15:09:13 06/20/22 15:09:13 06/20/22 15:09:13 Entry 4 Entry 5 Case Attendee Selene Dawn Micala E Role Performed Scrub - Primary Staff - Other Time In 06/20/22 14:57:00 06/20/22 14:57:00 Time Out 06/20/22 15:08:00 06/20/22 15:08:00 Procedure EGD(.) EGD(.) Comments help in room Last Modified By: Elio GRIMES, Nakia Chaudhari RN 06/20/22 15:09:13 06/20/22 15:09:13 Perioperative Protocols FT Pre-Care Text: Implements protective measures prior to operative or invasive procedure, confirms identity before the operative or invasive procedure, verifies operative procedure, surgical site, and laterality Entry 1 Procedure(s) EGD(.) Patient Identity Birthday, ID Band Verified (select at Check, Patient least 2): Participation Consents / H and P Anesthesia Consent, Operative Site N/A Verified HandP, Surgery/Procedure Marking Verified Consent Surgical Site No Laterality Verified n/a Verified Procedure Verified Yes Correct Patient Yes Position Verified Availability Equipment, Medication Prep Dry n/a Verified (If Applicable) PreOp Antibiotic No Time Out Brady HELLER MD, Given Participants Genet Dejesus CRNA, Nakia Ballard RN, Miles, Kirstyn K, Sparks, Micala E Time Out Complete 06/20/22 15:00:00 Outcomes Met? Yes Last Modified By: Nakia Ballard RN 06/20/22 15:01:15 Post-Care Text: The patient is free from signs and symptoms of injury caused by extraneous objects Allergy Information FT Pre-Care Text: Verifies allergies Entry 1 Allergies Reviewed? Yes Allergies Reviewed Self/Patient With Outcomes Met? Yes Last Modified By: Nakia Ballard RN 06/20/22 15:01:23 Post-Care Text: The patient received appropriate medication(s) safely administered during the perioperative period Surgical Procedures FT Entry 1 Procedure Description Procedure EGD Modifiers . Surgeon Description EGD with biopsy of esophagus Primary Procedure Yes Primary Surgeon Brady HELLER MD Start 06/20/22 15:01:00 Stop 06/20/22 15:06:00 Anesthesia Type General Surgical Service Gastroenterology Wound Class 2 - Clean-Contaminated Last Modified By: Nakia Ballard RN 06/20/22 15:07:24 General Case Data FT Pre-Care Text: Classifies surgical wound, implements aseptic technique, initiates traffic control Entry 1 Case Information OR ENDO 1 FT Case Level Level 2 Wound Class 2 - Clean-Contaminated Specialty Gastroenterology ASA Class 3 Preop Diagnosis Melena, anemia Postop Same As Preop No Postop Diagnosis Chela esophagitis, 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 Yes Last Modified By: Nakia Ballard RN 06/20/22 15:02:13 Post-Care Text: The patient is free from signs and symptoms of injury caused by extraneous objects Patient Positioning FT Pre-Care Text: Identifies physical alterations that require additional precautions for procedure-specific positioning, verifies presence of prosthetics or corrective devices, positions the patient, evaluates the patient for signs and symptoms of injury as a result of positioning Entry 1 Procedure EGD(.) Body Position Lateral, right side up Feet Uncrossed? Yes Left Arm Position Resting at Side Right Arm Position Resting at Side Left Leg Position Extended Right Leg Position Extended Posi (more content not included)... Normal [facility] Monitor Recordon 06-21-2022 Monitor Record [id number]#1.00CD :127 Normal [facility] Monitor Record [id number]#[id number] :127 [facility] Pre-Certification Formon Pre-Certification Form [id number]#1.00CD :127 [facility] Progress Note-Nurseon 2022 Progress Note-Nurse This nurse entered patient's room to assess patient and administer patient's medications. Patient told this nurse that he had another episode of bloody stool (which he had flushed prior to the nurse coming in so this nurse was not able to assess stool) and was going to leave this night or the next day to fly to [facility] to seek medical treatment at the [facility] where the physicians there are more familiar with his Crohn's condition. This nurse informed him that if he left [facility], he would be leaving against medical advice and would have to sign an AMA form. The patient stated he understood this and stated he still wants to leave. This nurse informed Dr. Betty Chacon, who came to patient bedside per patient's request to discuss situation. Normal [facility] Progress Note-Physicianon Progress Note-Physician Patient requeste d to see me regarding continued melanotic/hematochezia stool. I did see patient at approximately 10 PM on 06/20/2022. Patient explains to me that he was concerned about continued blood loss because he had another bloody bowel movement. Patient stated at that time that he had booked a flight to [facility] at 0630 on 06/21/2022 from [place] to [place], [place]. I explained to patient that I did not think flying on a commercial airline was a good idea because patient had a 2 g drop in hemoglobin overnight from 06/19/2022 to 06/20/2022. Patient did have 2 units of PRBC transfused during the day 06/20/2022 with a recheck hemoglobin of 9.1 g/dL (hemoglobin 7.3 g/dL at 0500 06/20/2022). Patient continued to have episodes of tachycardia and lightheadedness therefore hemoglobin was rechecked at 2300 at which time it was found to be 7.3 g/dL. At that time I did order patient [address] scan abdomen pelvis with enterography with contrast per GI recommendations in their note. I went to see patient again at approximately 0230 because patient was requesting transfer to [facility]. I explained to patient that my plan was to have the CAT scan performed and a local general surgeon evaluate patient in consultation. Once all data and consultations had been obtained transfer call to the [facility] would have been made. Patient stated that he would refuse any further CAT scans and wants to be transferred to [facility]. Patient states that he plans to sign out AGAINST MEDICAL ADVICE after blood transfusions has been completed and drive to [facility] emergency department. I explained to patient that I will initiate the transfer process with information I have at hand currently. I explained the patient that I do not think signing out AGAINST MEDICAL ADVICE and driving in a private vehicle was a safe decision because he has no ability to deal with a medical complication in route. Patient and his were present and understand my concerns. Patient is of sound mind and has a capacity make his own decisions. I did speak to Dr. Sterling at the [facility] transfer center to discuss transfer of care. He requested patient have the CT scan abdomen pelvis with enterography, gastroenterology consultation and surgical consultation prior to deciding on whether to accept patient or decline patient in transfer. I notified patient that the [facility] has requested the above work-up be completed here at [facility]. Patient states that he plans to sign out AGAINST MEDICAL ADVICE and drive to the [facility] emergency department. I again advised patient that I do not think this was an appropriate plan because if he has a medical complication while driving he will not have the resources necessary. I let patient know that if he comes short of breath, chest pain, passes out he should call 911 immediately or proceed to the nearest hospital. Patient and were present during this conversation. Patient is of sound mind and has a capacity to make his own decisions. Normal [facility] Comment on above: Result Comment: Elec tronically Signed By: Betty CHACON DO\Date and Time Signed: 06/21/22 06:01 EDT RCOon 06-21-2022 # of Units 2 Invalid Interpretation Code [facility] Comment on above: Order Comment: txf p t is having active blood and 2 g drop in hgb Performed By: #### 1 [id number] ####[facility] [address] [place] [address] Date Required 06-21-22 Invalid Interpretation Code [facility] Comment on above: Order Comment: txf p t is having active blood and 2 g drop in hgb Performed By: #### 1 [id number] ####[facility] [address] [place] [address] Product Type None Required Invalid Interpretation Code [facility] Comment on above: Order Comment: txf p t is having active blood and 2 g drop in hgb Performed By: #### 1 [id number] ####[facility] [address] [place] [address] ABO/Rhon 06-20-2022 ABO/Rh Negative Invalid Interpretation Code [facility] Comment on above: Performed By: #### 2 624648, [id number], [id number], [id number] ####[facility] [address] [place] [address] ABO/Rh History Checkon 06-20 ABO/Rh History Check Verified Hx Blood Type Normal [facility] Comment on above: Performed By: #### 2 684454, [id number], 30267109, [id number] ####[facility] [address] [place] [address] ABSCon 06-20-2022 ABSC Gel Interp Negative Normal [facility] Comment on above: Performed By: #### 2 457439, 54292233, 04796057, 07110012 ####[facility] [address] [place] [address] Auto Diffon 06-20-2022 Basophils/100 WBC (Bld) 0.4 % Normal 0.0-2.0 [facility] Comment on above: Order Comment: Order Added by Discern Expert. Performed By: #### 2 716826, 7583040, 92941317, 37410171, 0094489, 3208021, 32476145 #### [facility] [address] [place] [address] Basophils/Leukocytes Auto (Bld) [Pure # fraction] 0.0 E9/L Normal 0.0-0.2 [facility] Comment on above: Order Comment: Order Added by Discern Expert. Performed By: #### 2 667494, 1054532, 07504637, 05955653, 0666379, 5663232, 36753101 #### [facility] [address] [place] [address] Eosinophils/100 WBC (Bld) 0.4 % Normal 0.0-8.0 [facility] Comment on above: Order Comment: Order Added by Discern Expert. Performed By: #### 2 676417, 7790883, 81975676, 40533889, 7136618, 0987643, 37089090 #### [facility] [address] [place] [address] Eosinophils/Leukocytes Auto (Bld) [Pure # fraction] 0.0 E9/L Normal 0.0-0.5 [facility] Comment on above: Order Comment: Order Added by Discern Expert. Performed By: #### 2 695674, 2213488, 68844353, 56145440, 6481514, 2642848, 16494538 #### [facility] [address] [place] [address] Lymphocytes/100 WBC (Bld) 9.8 % Low 14.0-50.0 [facility] Comment on above: Order Comment: Order Added by Discern Expert. Performed By: #### 2 869303, 3332754, 52372328, 55957329, 5315326, 0867810, 24746858 #### [facility] [address] [place] [address] Lymphocytes/Leukocytes Auto (Bld) [Pure # fraction] 1.1 E9/L Normal 1.0-4.0 [facility] Comment on above: Order Comment: Order Added by Discern Expert. Performed By: #### 2 987378, 4521757, 06654066, 93987308, 8428275, 1867733, 22946000 #### [facility] [address] [place] [address] Monocytes/100 WBC (Bld) 5.2 % Normal 4.0-14.0 [facility] Comment on above: Order Comment: Order Added by Discern Expert. Performed By: #### 2 778369, 6789796, 08939322, 82006501, 4979327, 2000815, 29247677 #### [facility] [address] [place] [address] Monocytes/Leukocytes Auto (Bld) [Pure # fraction] 0.6 E9/L Normal 0.2-1.0 [facility] Comment on above: Order Comment: Order Added by Discern Expert. Performed By: #### 2 216624, 8258497, 62281871, 33634238, 5061575, 7599730, 31878858 #### [facility] [address] [place] [address] Neutrophils/100 WBC (Bld) 84.2 % High 36.0-75.0 [facility] Comment on above: Order Comment: Order Added by Discern Expert. Performed By: #### 2 196451, 3115808, 25695655, 32600192, 5001689, 9370144, 76478154 #### [facility] [address] [place] [address] Neutrophils/Leukocytes Auto (Bld) [Pure # fraction] 9.2 E9/L High 2.0-7.5 [facility] Comment on above: Order Comment: Order Added by Discern Expert. Performed By: #### 2 422156, 6356948, 72668032, 55857536, 3705962, 8751431, 22082174 #### [facility] [address] [place] [address] Basophils/100 WBC (Bld) 0.8 % Normal 0.0-2.0 [facility] Comment on above: Order Comment: Order Added by Discern Expert. Performed By: #### 2 649645, 0804343, 21998981, 89835721, 8849660, 5496000, 13372578 #### [facility] [address] [place] [address] Basophils/Leukocytes Auto (Bld) [Pure # fraction] 0.1 E9/L Normal 0.0-0.2 [facility] Comment on above: Order Comment: Order Added by Issa Expert. Performed By: #### 2 649301, 6027219, 01412891, 49209042, 6591986, 6842541, 87710233 #### [facility] [address] [place] [address] Eosinophils/100 WBC (Bld) 0.5 % Normal 0.0-8.0 [facility] Comment on above: Order Comment: Order Added by Discern Expert. Performed By: #### 2 320283, 9015455, 17945320, 10038701, 3945071, 9585395, 45137063 #### [facility] [address] [place] [address] Eosinophils/Leukocytes Auto (Bld) [Pure # fraction] 0.1 E9/L Normal 0.0-0.5 [facility] Comment on above: Order Comment: Order Added by Discern Expert. Performed By: #### 2 393337, 1385501, 39136394, 71362685, 1336107, 5213679, 75931961 #### [facility] [address] [place] [address] Lymphocytes/100 WBC (Bld) 10.7 % Low 14.0-50.0 [facility] Comment on above: Order Comment: Order Added by Discern Expert. Performed By: #### 2 990311, 9889428, 24127090, 16279837, 0003693, 3460750, 41762061 #### [facility] [address] [place] [address] Lymphocytes/Leukocytes Auto (Bld) [Pure # fraction] 1.8 E9/L Normal 1.0-4.0 [facility] Comment on above: Order Comment: Order Added by Discern Expert. Performed By: #### 2 [id number], [id number], [id number], [id number], 4471664, [id number], [id number] #### [facility] [address] [place] [address] Monocytes/100 WBC (Bld) 5.3 % Normal 4.0-14.0 [facility] Comment on above: Order Comment: Order Added by Discern Expert. Performed By: #### 2 [id number], [id number], [id number], [id number], 9553582, 1222408, [id number] #### [facility] [address] [place] [address] Monocytes/Leukocytes Auto (Bld) [Pure # fraction] 0.9 E9/L Normal 0.2-1.0 [facility] Comment on above: Order Comment: Order Added by Discern Expert. Performed By: #### 2 [id number], 6457762, [id number], 96413643, 2770436, 6744507, [id number] #### [facility] [address] [place] [address] Neutrophils/100 WBC (Bld) 82.7 % High 36.0-75.0 [facility] Comment on above: Order Comment: Order Added by Issa Expert. Performed By: #### 2 748474, 7969908, 15504967, 18804968, 6780501, 3182093, [id number] #### [facility] [address] [place] [address] Neutrophils/Leukocytes Auto (Bld) [Pure # fraction] 14.0 E9/L High 2.0-7.5 [facility] Comment on above: Order Comment: Order Added by Discern Expert. Performed By: #### 2 [id number], 4215416, 38070508, 23978002, 8332331, 0122749, [id number] #### [facility] [address] [place] [address] BMPon 06-20-2022 Creatinine [Mass/Vol] 1.1 mg/dL Normal 0.5-1.3 [facility] Comment on above: Performed By: #### 2 045647, 2832075, 65321812, 52393039, 8521636, 1313764, [id number] #### [facility] [address] [place] [address] Urea nitrogen [Mass/Vol] 23 mg/dL High 5-21 [facility] Comment on above: Performed By: #### 2 [id number], 7369270, 58835912, 48959966, 8047648, 5847990, [id number] #### [facility] [address] [place] [address] Urea nitrogen/Creatinine [Mass ratio] 21 No Units High 10-20 [facility] Comment on above: Performed By: #### 2 510304, 4819039, 60287692, 82856802, 2775917, 7379584, 04228878 #### [facility] [address] [place] [address] Anion gap [Moles/Vol] 11 mmol/L Normal 6-16 [facility] Comment on above: Performed By: #### 2 930271, 1338282, 27329637, 63423981, 9277858, 8463977, 33952177 #### [facility] [address] [place] [address] Calcium [Mass/Vol] 8.2 mg/dL Low 8.9-11.1 [facility] Comment on above: Performed By: #### 2 963392, 4359002, 97402827, 28708344, 6241352, 3817233, 04375736 #### [facility] [address] [place] [address] Chloride [Moles/Vol] 107 mmol/L Normal 101-111 [facility] Comment on above: Performed By: #### 2 293962, 5684044, 37937946, 46740993, 7267582, 5924472, 83382250 #### [facility] [address] [place] [address] CO2 [Moles/Vol] 23 mmol/L Normal 21-31 [facility] Comment on above: Performed By: #### 2 328639, 4331937, 82133885, 30104722, 3163842, 4241496, 57560023 #### [facility] [address] [place] [address] Glucose [Mass/Vol] 160 mg/dL Normal 55-199 [facility] Comment on above: Result Comment: If t his glucose result represents a fasting glucose, interpretation should refer to the following reference range: 55-99 mg/dL Performed By: #### 2 032772, 9426137, 15170593, 94602922, 6852732, 8386340, 10673385 #### [facility] [address] [place] [address] Potassium [Moles/Vol] 4.3 mmol/L Normal 3.5-5.3 [facility] Comment on above: Performed By: #### 2 647671, 0879246, 81731642, 82572458, 2972036, 6124839, 80018528 #### [facility] [address] [place] [address] Sodium [Moles/Vol] 137 mmol/L Normal 135-145 [facility] Comment on above: Performed By: #### 2 723617, 0201719, 24407026, 53436072, 8468337, 4727278, 94803238 #### [facility] [address] [place] [address] Blood Bank ID#on 06-20-2022 BBID# [id number] Invalid Interpretation Code [facility] Comment on above: Performed By: #### 2 532944, 72900627, 21432474, 28316985 ####[facility] [address] [place] [address] CBC w/ Auto Diffon Erythrocyte distribution width (RBC) [Ratio] 15.3 % High 10.9-14.2 [facility] Comment on above: Performed By: #### 2 312717, 6316124, 67783151, 21209118, 9022224, 7696870, 84369304 #### [facility] [address] [id number] Hematocrit (Bld) [Volume fraction] 27.9 % Low 37.7-49.0 [facility] Comment on above: Performed By: #### 2 476335, 2420695, 19868086, 82052371, 9744135, 9217528, 04721344 #### [facility] [address] [place] [address] Hemoglobin (Bld) [Mass/Vol] 9.1 g/dL Low 13.5-17.5 [facility] Comment on above: Result Comment: RECE NT TRANSFUSION Performed By: #### 2 938932, 1074382, 93540338, 14845383, 0882699, 1776329, 10728831 #### [facility] [address] [place] [address] MCH (RBC) [Entitic mass] 28.0 pg Normal 27.0-34.0 [facility] Comment on above: Performed By: #### 2 132900, 2757662, 68192535, 64374762, 5638528, 2015401, 63331279 #### [facility] [address] [place] [address] MCHC (RBC) [Mass/Vol] 32.5 g/dL Normal 31.4-36.0 [facility] Comment on above: Performed By: #### 2 896665, 2550890, 56330673, 27377969, 6254134, 7416975, 90600700 #### [facility] [address] [place] [address] MCV (RBC) [Entitic vol] 86.1 fL Normal 80.0-100.[address] [facility] Comment on above: Performed By: #### 2 344639, 2484250, 10697446, 42938562, 4843924, 3032740, 77995369 #### [facility] [address] [place] [address] Platelet mean volume (Bld) [Entitic vol] 8.0 fL Normal 6.4-10.8 [facility] Comment on above: Performed By: #### 2 555479, 1365649, 31507474, 31614908, 6804498, 6084298, 34265244 #### [facility] [address] [place] [address] Platelets (Bld) [#/Vol] 221.0 E9/L Normal 150. 0-500. 0 [facility] Comment on above: Performed By: #### 2 421662, 3513692, 14563840, 29009324, 7843090, 5298537, 64497381 #### [facility] [address] [place] [address] RBC (Bld) [#/Vol] 3.2 E12/L Low 4.3-5.9 [facility] Comment on above: Performed By: #### 2 202694, 2403966, 62021283, 46885029, 8330261, 8903393, 75651449 #### [facility] [address] [place] [address] WBC corrected for nucl RBC Auto (Bld) [#/Vol] 10.9 E9/L Normal 4.0-11.0 [facility] Comment on above: Performed By: #### 2 283837, 9406706, 49377109, 36506702, 0123537, 5417088, 29340976 #### [facility] [address] [place] [address] Erythrocyte distribution width (RBC) [Ratio] 15.4 % High 10.9-14.2 [facility] Comment on above: Performed By: #### 2 798219, 7347596, 67780411, 05428401, 5837589, 3433265, 28409575 #### [facility] [address] [place] [address] Hematocrit (Bld) [Volume fraction] 28.3 % Low 37.7-49.0 [facility] Comment on above: Performed By: #### 2 487654, 3541245, 74994630, 67105024, 5845312, 6404315, 63600524 #### [facility] [address] [place] [address] Hemoglobin (Bld) [Mass/Vol] 9.2 g/dL Low 13.5-17.5 [facility] Comment on above: Performed By: #### 2 416644, 9997769, 96837837, 60714356, 7427925, 2534266, 11373157 #### [facility] [address] [place] [address] MCH (RBC) [Entitic mass] 26.9 pg Low 27.0-34.0 [facility] Comment on above: Performed By: #### 2 559803, 8129749, 66470205, 56175197, 1450598, 9623375, 38300891 #### [facility] [address] [place] [address] MCHC (RBC) [Mass/Vol] 32.6 g/dL Normal 31.4-36.0 [facility] Comment on above: Performed By: #### 2 282094, 6272971, 37436958, 82995863, 3630805, 0337823, 49235780 #### [facility] [address] [place] [address] MCV (RBC) [Entitic vol] 82.5 fL Normal 80.0-100.[address] [facility] Comment on above: Performed By: #### 2 321009, 2280023, 25600352, 15829045, 5143410, 2960150, 70158565 #### [facility] [address] [place] [address] Platelet mean volume (Bld) [Entitic vol] 8.2 fL Normal 6.4-10.8 [facility] Comment on above: Performed By: #### 2 939347, 6733868, 11692301, 80673652, 3097824, 3092374, 41463793 #### [facility] [address] [place] [address] Platelets (Bld) [#/Vol] 367.0 E9/L Normal 150. 0-500. 0 [facility] Comment on above: Performed By: #### 2 283341, 0992727, 32833315, 60768510, 2549112, 4666578, 66124869 #### [facility] [address] [place] [address] RBC (Bld) [#/Vol] 3.4 E12/L Low 4.3-5.9 [facility] Comment on above: Performed By: #### 2 786448, 1963394, 21458625, 02123192, 6483952, 0909291, 75497602 #### [facility] [address] [place] [address] WBC corrected for nucl RBC Auto (Bld) [#/Vol] 16.9 E9/L High 4.0-11.0 [facility] Comment on above: Result Comment: Slid e reviewed by AD. Performed By: #### 2 917268, 5994786, 41487849, 26804770, 8853098, 2267682, 95433559 #### [facility] [address] [place] [address] CBC w/Indiceson 06-20-2022 Erythrocyte distribution width (RBC) [Ratio] 15.4 % High 10.9-14.2 [facility] Comment on above: Performed By: #### 2 537339 #### [facility] [address] [place] [address] Hematocrit (Bld) [Volume fraction] 22.4 % Low 37.7-49.0 [facility] Comment on above: Performed By: #### 2 337902 #### [facility] [address] [place] [address] Hemoglobin (Bld) [Mass/Vol] 7.3 g/dL Low 13.5-17.5 [facility] Comment on above: Performed By: #### 2 113868 #### [facility] [address] [place] [address] MCH (RBC) [Entitic mass] 27.2 pg Normal 27.0-34.0 [facility] Comment on above: Performed By: #### 2 425064 #### [facility] [address] [place] [address] MCHC (RBC) [Mass/Vol] 32.5 g/dL Normal 31.4-36.0 [facility] Comment on above: Performed By: #### 2 962310 #### [facility] [address] [place] [address] MCV (RBC) [Entitic vol] 83.6 fL Normal 80.0-100.[address] [facility] Comment on above: Performed By: #### 2 648649 #### [facility] [address] [place] [address] Platelet mean volume (Bld) [Entitic vol] 8.2 fL Normal 6.4-10.8 [facility] Comment on above: Performed By: #### 2 722922 #### [facility] [address] [place] [address] Platelets (Bld) [#/Vol] 247.0 E9/L Normal 150. 0-500. 0 [facility] Comment on above: Performed By: #### 2 991908 #### [facility] [address] [place] [address] RBC (Bld) [#/Vol] 2.7 E12/L Low 4.3-5.9 [facility] Comment on above: Performed By: #### 2 807976 #### [facility] [address] [place] [address] WBC corrected for nucl RBC Auto (Bld) [#/Vol] 12.7 E9/L High 4.0-11.0 [facility] Comment on above: Performed By: #### 2 173599 #### [facility] [address] [place] [address] CHEMISTRYOrdered By: SYSTEM SYSTEM on 06-20-2022 Troponin I.cardiac [Mass/Vol] 13.40 pg/mL Low 15.90 - 38.40 pg/mL [facility] Remisol Troponin I.cardiac [Mass/Vol] 13.10 pg/mL Low 15.90 - 38.40 pg/mL [facility] Remisol Troponin I.cardiac [Mass/Vol] 13.40 pg/mL Low 15.90 - 38.40 pg/mL [facility] Remisol CTA [place] 06-20-2022 CTA Chest Exam Date/Time: 06/20/2022 01:17 EDT Reason for Exam: Pulmonary embolism (PE) suspected, high prob;Other (please specify) Report IMPRESSION: The study is negative for pulmonary emboli, aortic dissection, or aneurysm. There are no acute infiltrates or effusions. EXAM: CTA Chest History: Chest pain, SOB shortness of breath, difficulty breathing, chest pain Technique: Multiple contiguous axial images were obtained of the thorax from the thoracic inlet through the upper abdomen during dynamic administration of IV contrast. Sagittal and coronal reformats as well as 3-D MIP projection reformations have been obtained. All CT scans at this facility use dose modulation, iterative reconstruction, and/or weight based dosing when appropriate to reduce radiation dose to as low as reasonably achievable. Comparison: Findings: Visualized portion of the thyroid gland is within normal limits. There is a three-vessel aortic arch. No thoracic aortic aneurysm. Heart size is within normal limits. No significant pericardial effusion. There are no persistent filling defects within the pulmonary arteries. No axillary, mediastinal, or hilar lymphadenopathy. Esophagus is within normal limits. No pulmonary nodule or mass. No consolidation, pleural effusion, or pneumothorax. Visualized upper abdominal viscera appear within normal limits. There are no acute osseous changes. Report Ordering Provider: Betty CHACON FINAL REPORT Dictated: 06/20/2022 9:10 am Raulito Sierra MD, V. Signed (Electronic Signature): 06/20/2022 9:10 am Signed by: Raulito Sierra MD, V. Transcribed by: FLEX Technologist: LEAH Technical Comments GFR (mL/min/1/73m2) >60 Contrast: Isovue 370 Contrast amount in ml's: 71 Normal [facility] [place] 06-20-2022 Consent [id number]: 127 Normal [facility] Consultation Noteon 06-21-19 Consultation Note Patient: JOSÉ MIGUEL CARRENO Mitch RN: [id number] Age: 62 years Sex: Male : 1960 Associated Diagnoses: None Author: Brady HELLER MD Chief Complaint 06/20/2022 1:39 EDT shortness of breathing, weakness, fatigue and bloody stool 06/19/2022 21:44 EDT Pt was just discharged today from hospital for GI bleed. States cauterized his gut. Hgb was 9.2 before he left. States at home became SOB, weakness, fatigued. [place] like his heart was beating fast. Still having some blood in stools. History of Present Illness 62 years old white male with history of small intestinal Crohn's disease, initially diagnosed in 1999, he failed multiple biological treatment including Remicade, Humira, Cimzia, Stelara and Entyvio, he had multiple segmental small intestinal resection surgeries(he had 7 feet of small intestines left), he was started on Skyrizi in 2020, he is steroid-dependent and he is on 7.5 mg of prednisone daily. His last CT enterography showed active small intestinal Crohn's, symptoms are fairly controlled with the steroids and Skyrizi. He was admitted to [facility] initially the day before yesterday for melena and anemia, EGD was done by Dr. Vega, found to have multiple mildly oozing mucosal lesions in the gastric body treated with APC, he was discharged home the same day. He reported taking iron pills at home, patient felt weak and fatigued and noted black stool at home for which he decided to come back to the ER today. In the ER he was noted to have a hemoglobin of 7.3 compared with 9.4 yesterday. Normal CTA Review of Systems Constitutional: Weakness, Fatigue. Ear/Nose/Mouth/Throat: Negative. Respiratory: Negative. Gastrointestinal: Black stool. Genitourinary: Negative. Health Status Allergies: Allergic Reactions (Selected) Severity Not Documented AzaTHIOprine- Joint pain. Tylenol- Fever. Current medications: (Selected) Inpatient Medications Ordered Benadryl 25 mg Cap: 25 mg = 1 cap(s), Cap, Oral, q6hr PRN Itching, Routine, Start date 06/20/22 2:02:00 EDT, 06/20/22 2:02:00 EDT Carafate 1 g/10 mL Susp-Oral: 1,000 mg = 10 mL, Susp-Oral, Oral, QID, Routine, Start date 06/20/22 9:00:00 EDT, 06/20/22 2:07:00 EDT DuoNeb 2.5 mg-0.5 mg/3 mL Soln-Inh: 3 mL, Soln-Inh, Inhalation, QID PRN Dyspnea for 30 day(s), Stop date 07/20/22 1:55:00 EDT, Routine, Start date 06/20/22 1:56:00 EDT Lactated Ringers IV Rosemary 1000 mL 1,000 mL: 1,000 mL, IV, 100 mL/hr, Routine, Start date 06/20/22 13:21:00 EDT, 10 hour(s), Total volume (mL): 1,000, 92 kg, 2.22, m2 NS 1000 mL Soln-IV 1,000 mL: 1,000 mL, IV, 125 mL/hr, Routine, Start date 06/20/22 2:02:00 EDT, 8 hour(s), Total volume (mL): 1,000, 92 kg, 2.22, m2 Phenergan 25 mg/mL Injection: 12.5 mg = 0.5 mL, Injection, IV Push, q6hr PRN Nausea, Routine, Start date 06/20/22 2:02:00 EDT, 06/20/22 2:02:00 EDT Sodium Chloride 0.9% IV Rosemary 1000 mL 1,000 mL: 1,000 mL, IV, 20 mL/hr, Routine, Start date 06/20/22 14:10:00 EDT, 50 hour(s), Total volume (mL): 1,000, 92 kg, 2.22, m2 Sodium Chloride 0.9% IV Rosemary 250 mL bag 250 mL: 250 mL, IV, 20 mL/hr, Other (see comment), Routine, Start date 06/20/22 9:06:00 EDT, 12.5 hour(s), Total volume (mL): 250, 92 kg, 2.22, m2 Sodium Chloride 0.9% IV Rosemary 500 mL 500 mL: 500 mL, IV, 20 mL/hr, Other (see comment), Routine, Start date 06/20/22 9:06:00 EDT, 25 hour(s), Total volume (mL): 500, 92 kg, 2.22, m2 Zofran 4 mg/2 mL Injection: 4 mg = 2 mL, Injection, IV Push, q6hr PRN Nausea, Routine, Start date 06/20/22 2:02:00 EDT, 06/20/22 2:02:00 EDT acetaminophen 325 mg Tab: 650 mg = 2 tab(s), Tab, Oral, q6hr PRN Pain, Routine, Start date 06/20/22 2:02:00 EDT, 06/20/22 2:02:00 EDT amLODIPine 5 mg Tab: 5 mg = 1 tab(s), Tab, Oral, Daily, Routine, Start date 06/20/22 9:00:00 EDT, 06/20/22 2:04:00 EDT hydrALAZINE 20 mg/mL Inj: 10 mg = 0.5 mL, Injection, IV Push, q6hr PRN Other (see comment), Routine, Start date 06/20/22 2:02:00 EDT, 06/20/22 2:02:00 EDT hydrocortisone 100 mg Inj: 100 mg = 1 EA, Injection, IV Push, q8hr, Routine, Start date 06/20/22 3:00:00 EDT, 06/20/22 2:42:00 EDT lisinopril 20 mg Tab: 20 mg = 1 tab(s), Tab, Oral, Daily, Routine, Start date 06/20/22 9:00:00 EDT, 06/20/22 2:05:00 EDT metoprolol 25 mg ER Tab: 12.5 mg = 0.5 tab(s), Tab-ER, Oral, Daily, Routine, Start date 06/20/22 9:00:00 EDT, 06/20/22 2:05:00 EDT pantoprazole 40 mg IV Inj: 40 mg = 10 mL, Injection, IV Push, BID, Routine, Start date 06/20/22 21:00:00 EDT, 06/20/22 9:51:00 EDT Prescriptions Prescribed Carafate 1 gram Tab: 1 gm = 1 tab(s), Oral, QID, # 120 tab(s), Refills(s) 0, Pharmacy: [facility][id number], 197, cm, 06/18/22 17:47:00 EDT, Height/Length Dosing, 92, kg, 06/18/22 17:47:00 EDT, Weight Dosing Protonix 40 mg Tab-DR: 40 mg = 1 tab(s), Oral, Daily, # 30 tab(s), Refills(s) 1, Pharmacy: [facility] #[id number], 197, cm, 06/18/22 17:47:00 EDT, Height/Length Dosing, 92, kg, 06/18/22 17:47:00 EDT, Weight Dosing polyethylene glycol 3350 with electrolytes Oral Pwdr for Rosemary 4000 mL (NuLytely): See Instruc (more content not included)... [facility] Comment on above: Result Comment: Elec tronically Signed By: GER MALLOY, Brady\.br\Date and Time Signed: 06/20/22 15:15 EDT Consultation Note [id number]: 127 [facility] Discharge Instructionson Discharge Instructions [id number]#[id number] :127 [facility] ED Clinical Summaryon 2022 ED Clinical Summary (Inserted Image. Angeli ble to display) [address] [address] ED Clinical Summary Person Information Name: JOSÉ MIGUEL CARRENO/Kavya Age: 62 Years : 1960 Sex: Male Language: Bur[place]ian PCP: Betty CHACON DO Marital Status: Visit Id: Visit Reason: Blood in stool; Weakness or fatigue; Shortness of breath; Abdominal pain; GENERALIZED WEAKNESS, GI BLEED Speciality: Acuity: 2 Enc Type: Emergency Med Service: Emergency Arrival: 06/19/2022 21:41:46 Discharge: LOS: 000 04:13 Checkin: 06/19/2022 21:41:46 Checkout: 06/20/2022 01:54:58 Dispo Type: Admitted as IP to this [facility] EVENTS: Event Name Event Status Request Date/Time Start Date/Time Complete Date/Time Arrive Complete 06/19/2022 21:41:46 06/19/2022 21:41:46 06/19/2022 21:41:46 Document Home Meds Request 06/19/2022 21:41:46 Triage Complete 06/19/2022 21:41:46 06/19/2022 21:51:58 06/19/2022 21:51:58 Bed Assign Complete 06/19/2022 21:44:02 06/19/2022 21:44:02 06/19/2022 21:44:02 Dr Exam Complete 06/19/2022 21:44:02 06/19/2022 21:52:58 06/19/2022 21:52:58 RN Exam Complete 06/19/2022 21:44:02 06/19/2022 22:01:43 06/19/2022 22:01:43 EKG Complete 06/19/2022 21:44:09 06/19/2022 21:49:11 Pending Labs Request 06/19/2022 21:52:01 Lab Complete 06/19/2022 21:52:01 06/19/2022 22:28:21 Patient Care Request 06/19/2022 21:52:01 RT Request 06/19/2022 21:52:01 Registration Complete 06/19/2022 21:52:58 06/19/2022 21:53:48 06/19/2022 21:53:48 Reg Complete Request 06/19/2022 21:53:48 Pending Labs Complete 06/19/2022 21:56:35 06/19/2022 21:56:35 06/19/2022 22:11:41 Lab Complete 06/19/2022 21:56:35 06/19/2022 21:56:35 06/19/2022 22:11:41 Fall Risk Request 06/19/2022 22:01:43 Meds Admin Complete 06/19/2022 22:15:09 06/20/2022 00:34:57 Pending Labs Complete 06/19/2022 22:15:09 06/19/2022 23:20:40 Lab Cancel 06/19/2022 22:15:09 06/19/2022 22:18:29 Blood Collect Request 06/19/2022 22:15:09 Pending Labs Complete 06/19/2022 22:18:49 06/19/2022 22:18:49 06/19/2022 22:39:40 Lab Complete 06/19/2022 22:18:49 06/19/2022 22:18:49 06/19/2022 22:39:40 Pending Labs Complete 06/19/2022 22:28:22 06/19/2022 22:28:22 06/19/2022 22:28:29 Lab Complete 06/19/2022 22:28:22 06/19/2022 22:28:22 06/19/2022 22:28:29 Possible SIRS Request 06/19/2022 22:30:36 Consult Request 06/20/2022 00:16:50 Hospitalist Consult Request 06/20/2022 00:16:51 CT Complete 06/20/2022 00:34:47 06/20/2022 01:01:25 06/20/2022 01:17:40 ADDRESS: [address] [place] [id number] [facility] DOC NOTES: MEDICAL INFORMATION: Prescriptions Given: Medications to Continue with No Changes Other Medications amlodipine (amLODIPine 5 mg Tab) By Mouth every day. cyanocobalamin (Vitamin B-12 1000 mcg/mL injectable solution) Intramuscular once a month. pantoprazole (Protonix 40 mg Tab-DR) 1 Tablets By Mouth every day. Refills: 1. predniSONE 10 Milligram By Mouth every day. risankizumab (Skyrizi) q4wk. sucralfate (Carafate 1 gram Tab) 1 Tablets By Mouth 4 times a day. Refills: 0. PATIENT EDUCATION INFORMATION: Instructions: Follow up: DIAGNOSIS: 1:GI bleed; 2:Generalized weakness; 3:Dyspnea; 4:Current chronic use of systemic steroids; 5:HTN (hypertension) Normal [facility] ED Note-Physicianon 06-21-19 ED Note-Physician Basic Information Time Seen: Roman Kay MD 06/19/2022 21:52 Chief Complaint Pt was just discharged today from hospital for GI bleed. States cauterized his gut. Hgb was 9.2 before he left. States at home became SOB, weakness, fatigued. [place] like his heart was beating fast. Still having some blood in stools. History of Present Illness 62-year-old male who was discharged from the hospital today after being admitted for GI bleed. Patient states he underwent endoscopy today and had cauterization done at the bleeding sites in the stomach. He states that at home he felt profoundly weak it was a generalized weakness. It was made worse by standing. He became very short of breath with even the slightest exertion. Patient states that he does not have significant abdominal pain. He states that the stools are still bloody that he is passing. He has not vomited there is no nausea associated with this. Patient has a history of Crohn's disease and he takes prednisone 10 mg a day. 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 Patient has had numerous abdominal surgeries to have segments of the bowel resected. Review of Systems A 10 point review of systems is negative except as noted above. Medical and Surgical History: Reviewed and noted Social history: Lives at home Tobacco: Denies Physical Exam Vitals & Measurements T: 36.4 ?C(Oral) HR: 103(Peripheral) RR: 15 BP: 107/63 SpO2: 98% HT: 193 cm WT: 92 kg BMI: 24.7 This is a tall well-developed 62-year-old male he is alert and oriented his skin is warm and dry his color is pink on room air. Conjunctiva is is still pink oral mucosa is moist. The heart is regular slightly accelerated but without murmur gallop or rub. Lungs are clear to auscultation there is no respiratory guarding. The abdomen shows midline scar the abdomen is flat the abdomen is soft it is nontender. Extremities show no deformity his speech is normal. Medical Decision Making There certainly is a concern for continued bleeding with this patient. I discussed the case with our hospitalist who was the admitting doctor last night. We both agree that admission observation is warranted. Because of the history of the steroids and the recent stress that he has been under hydrocortisone will be given by the hospitalist. Assessment/Plan 1. GI bleed (K92.2: Gastrointestinal hemorrhage, unspecified) 2. Generalized weakness (R53.1: Weakness) Orders: pantoprazole, 40 mg = 10 mL, Injection, IV Push, Once, Stop date 06/19/22 22:13:00 EDT, STAT, Start date 06/19/22 22:13:00 EDT, Infuse over 2 minute(s), 06/19/22 22:13:00 EDT Sodium Chloride 0.9% intravenous solution, 1,000 mL, IV, Stop date 06/19/22 22:12:00 EDT, Start date 06/19/22 22:12:00 EDT Sodium Chloride 0.9% intravenous solution, 1,000 mL, Soln-IV, IV, Once, Stop date 06/19/22 22:13:00 EDT, STAT, Start date 06/19/22 22:13:00 EDT, Infuse over 61, minute(s) ABO/Rh ABO/Rh History Check Antibody Screen Automated Diff Basic Metabolic Panel Blood Bank ID# CBC w/ Auto Diff ECG 12 Lead Adult ED Cardiac Monitoring ED Physician consult Hospitalist for continued care eGFR Hepatic Function Panel Oxygen Saturation Oxygen Therapy PT & PTT Saline Lock Insert Troponin 0 Hr. Troponin 3 Hr. Troponin 6 Hr. Troponin 9 Hr. Medications Administered Given SC6732 [F], 1000 mL, IV pantoprazole 40 mg IV Inj, 40 mg, IV Push Disposition Plan Patient Discharge Condition Guarded Discharge Disposition Admit to observation Discharge Prescription List Prescriptions Carafate 1 gram Tab, 1 gm= 1 tab(s), Oral, QID Protonix 40 mg Tab-DR, 40 mg= 1 tab(s), Oral, Daily, 1 refills Follow-up No qualifying data available Problem List/Past Medical History Ongoing Crohn's disease Crohn's disease, small and large intestine HTN (hypertension) Hypokalemia Low serum potassium level S/P partial colectomy S/P small bowel resection Steroid dependent Historical No qualifying data Procedure/Surgical History Colonoscopy (08/15/2016). Medications Inpatient NS 1000 ml Bolus, 1000 mL, IV, Once Home amLODIPine 5 mg Tab, Oral, Daily budesonide, 6 mg, Oral, qAM Carafate 1 gram Tab, 1 gm= 1 tab(s), Oral, QID lisinopril 20 mg Tab, Oral, Daily magnesium oxide base 500 mg oral tablet, Oral, Daily metoprolol 25 mg ER Tab, 12.5 mg= 0.5 tab(s), Oral, Daily Multi Vitamin+, Daily polyethylene glycol 3350 with electrolytes Oral Pwdr for Rosemary 4000 mL (NuLytely), See Instructions, Not taking potassium chloride 20 mEq ER Tab, 40 mEq= 2 tab(s), Oral, Daily predniSONE, 10 mg, Oral, Daily Protonix 40 mg Tab-DR, 40 mg= 1 tab(s), Oral, Daily, 1 refills Skyrizi, See Instructions Vitamin B-12 1000 mcg/mL injectable solution, IntraMuscular, qMonth Vitamin D3 1000 intl units oral capsule, Oral, Daily Allergies Tylenol (Fever) azaTHIOprine (Joint pain) Social History Alcohol Substance Abuse Tobacco Never (less than 100 in lifetime (more content not included)... Normal [facility] Comment on above: Result Comment: Elec tronically Signed By: Luis MALLOY, Roman\.br\Date and Time Signed: 06/20/22 00:17 EDT ED Patient Education Noteon 06-20-2022 ED Patient Education Note Normal [facility] ED Patient Summaryon 023 ED Patient Summary (Inserted Image. Angeli ble to display) [place] [id number] Patient Discharge Instructions Person Information Name: JOSÉ MIGUEL CARRENO Age: 62 Years Arrival Date: 06/19/2022 21:41:46 Discharge Diagnosis: 1:GI bleed; 2:Generalized weakness; 3:Dyspnea; 4:Current chronic use of systemic steroids; 5:HTN (hypertension) Primary Care Physician: Betty CHACON DO Provider Information Primary Provider: Roman Kay MD [employer] Salesperson:None The exam and treatment you received in the Emergency Department were for an urgent problem and are not intended as complete care. It is important that you follow up with a doctor, nurse practitioner, or physician?s head start assistant teacher for ongoing care. If your symptoms become worse or you do not improve as expected and you are unable to reach your usual health care provider, you should return to the Emergency Department. We are available 24 hours a day. JOSÉ MIGUEL CARRENO has been given the following list of patient education materials, prescriptions and follow-up instructions: Follow-up Instructions: In the event that this physician does not participate in your insurance network, please consult with your insurance company to find a nearby participating provider. Patient Education Materials: A MESSAGE TO ALL PATIENTS REGARDING OPIOIDS PRESCRIPTION OPIOIDS: WHAT YOU NEED TO KNOW Prescription opioids can be used to help relieve zqwezdlw-si-rcnvjz pain and are often prescribed following a surgery or injury, or for certain health conditions. These medications can be an important part of the treatment but also come with serious risks. It is important to work with your healthcare provider to make sure you are getting the safest, most effective care. WHAT ARE THE RISKS AND SIDE EFFECTS OF OPIOID USE? Prescription opioids carry serious risks of addiction and overdose, especially with prolonged use. An opioid overdose, often marked by slowed breathing, can cause sudden . The use of prescription opioids can have a number of side effects as well, even when taken as directed: ? Tolerance?meaning you might need to take more of the medication for the same pain relief ? Physical dependence?meaning you have symptoms of withdrawal when a medication is stopped ? Increased sensitivity to pain ? Constipation ? Nausea, vomiting, and dry mouth ? Sleepiness and dizziness ? Confusion ? Depression ? Low levels of testosterone that can result in lower sex drive, energy, and strength ? Itching and sweating RISKS ARE GREATER WITH: ? History of drug misuse, substance use disorder, or overdose ? Mental health conditions (such as depression or anxiety) ? Sleep apnea ? Older age (65 years and older) ? Avoid alcohol while taking prescription opioids. Also, unless specifically advised by your health care provider, medications to avoid include: ? Benzodiazepines (such as Xanax or Valium) ? Muscle relaxants (such as Soma or Flexeril) ? Hypnotics (such as Ambien or Lunesta) ? Other prescription opioids KNOW YOUR OPTIONS Talk to your health care provider about ways to manage your pain that don?t involve prescription opioids. Some of these options may actually work better and have fewer risks and side effects. Options may include: ? Pain relievers such as acetaminophen, ibuprofen, and naproxen ? Some medication that are also used for depression or seizures ? Physical therapy and exercise ? Cognitive behavioral therapy, a psychological, goal-directed approach, in which patients learn how to modify physical, behavioral, and emotional triggers of pain and stress. IF YOU ARE PRESCRIBED OPIOIDS FOR PAIN: ? Never take opioids in greater amounts or more often than prescribed. ? Follow up with your primary health care provider. o Work together to create a plan on how to manage your pain. o Talk about ways to help manage your pain that don?t involve prescription opioids. o Talk about any and all concerns and side effects. ? Help prevent misuse and abuse o Never sell or share prescription opioids. o Never use another person?s prescription opioids. ? Store prescription opioids in a secure place and out of reach of others (this may include visitors, children, friends, and family). ? Safely dispose of unused prescription opioids: Find your community drug take-back program or your pharmacy mail-back program, or flush them down the toilet, following guidance from the Food and Drug Administration (www.fda.gov/Drugs/Resou rcesForYou). ? Visit www.cdc.gov/drugoverdose to learn about the risks of opioids abuse and overdose. ? If you believe you may be struggling with addiction, tell your health care consultant and ask for guidance or call SAMHSA?S National Helpline at 6-410-677-HELP. v Source: [place] Department of Health and Human Services/Center for Disease Control & Prevention [facility] (more content not included)... Normal [facility] Endoscopic Procedure Report - Otheron 06-20-2022 Endoscopic Procedure Report - Other Patient: JOSÉ MIGUEL CARRENO Age: 62 years Sex: Male : 1960 Associated Diagnoses: None Author: Brady HELLER MD Pre-Procedure Procedure Date 06/20/2022 15:15:00 . Procedure Type: Push enteroscopy. Procedure provider Performed by Brady Heller MD. Current history and physical Documented on chart. Informed Consent After discussing the rationale, risks and benefits, and alternatives to this procedure, the patient provided signed consent for the procedure. Pre-procedure diagnosis: Diagnostic: Melena and anemia. Medications Anticoagulant/antiplatel et None. Antibiotic prophylaxis None. ASA Classification: Class III. . Monitoring: See anesthesia record. . Procedure The procedure was performed in the hospital. See anesthesia record for sedation given during procedure. The patient was positioned starting in the left lateral decubitus position and with safety measures. Endoscope type used was an adult-size, introduced orally, advanced to the 2nd portion of the duodenum. No difficulty was encountered during the procedure. Views were excellent. The patient tolerated the procedure well. Findings 1. 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 Multiple moderate size ulcers in the gastric body consistent with recent APC treatment, there for adhering clots but no active bleeding 3. Normal duodenum and proximal jejunum with no stigmata of recent bleeding Images Procedure images: Rec1_hd_video_ [id number].jpg Rec1_hd_video_ [id number].jpg Rec1_hd_video_ [id number].jpg Rec1_hd_video_ [id number].jpg Rec1_hd_video_ [id number].jpg Rec1_hd_video_ [id number].jpg . Post-Procedure Complications: none. Estimated blood loss: none. Specimens: sent to pathology. Devices/ implants: none left in place. Impression and Plan 1. 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 Multiple moderate size ulcers in the gastric body consistent with recent APC treatment, there for adhering clots but no active bleeding 3. Normal duodenum and proximal jejunum with no stigmata of recent bleeding Recommendations: Follow-up in GI clinic in 2 weeks CBC twice daily, advance diet as tolerated, monitor stool color, avoid oral iron Please start IV iron infusion If melena persists, then proceed with CT enterography Pantoprazole 40 mg IV twice daily while in hospital, change to orally twice daily for 2 weeks upon discharge then daily Carafate 1 g p.o. every 6 hours for 1 month Awaiting esophageal exudates biopsy result, if positive then will start Chela treatment Normal [facility] Comment on above: Result Comment: Elec tronically Signed By: GER MALLOY, Brady\.br\Date and Time Signed: 06/20/22 15:18 EDT Other Comment: Saloni torres Attachment - attachment storage system not supported [id number] Can be viewed in source systemMissing Attachment - attachment storage system not supported [id number] Can be viewed in source systemMissing Attachment - attachment storage system not supported [id number] Can be viewed in source systemMissing Attachment - attachment storage system not supported [id number] Can be viewed in source systemMissing Attachment - attachment storage system not supported [id number] Can be viewed in source systemMissing Attachment - attachment storage system not supported [id number] Can be viewed in source system HEMATOLOGYOrdered By: Leonel Ruelas on 06-20-2022 Hemoglobin (Bld) [Mass/Vol] 7.3 g/dL Low 13.5 - 17.5 gm/dL [facility] Erythrocyte distribution width (RBC) [Ratio] 15.4 % High 10.9 - 14.2 % [facility] Hematocrit (Bld) [Volume fraction] 22.4 % Low 37.7 - 49.0 % [facility] Hemoglobin (Bld) [Mass/Vol] 7.3 g/dL Low 13.5 - 17.5 gm/dL [facility] MCH (RBC) [Entitic mass] 27.2 pg Normal 27.0 - 34.0 pg [facility] MCHC (RBC) [Mass/Vol] 32.5 g/dL Normal 31.4 - 36.0 gm/dL [facility] MCV (RBC) [Entitic vol] 83.6 fL Normal 80.0 - 100.0 fL [facility] Platelet mean volume (Bld) [Entitic vol] 8.2 fL Normal 6.4 - 10.8 fL [facility] Platelets (Bld) [#/Vol] 247.0 E9/L Normal 150. 0 - 500.0 E9/L [facility] RBC (Bld) [#/Vol] 2.7 E12/L Low 4.3 - 5.9 E12/L [facility] WBC corrected for nucl RBC Auto (Bld) [#/Vol] 12.7 E9/L High 4.0 - 11.0 E9/L [facility] HEMATOLOGYOrdered By: SYSTEM SYSTEM on 06-20-2022 Basophils/100 WBC (Bld) 0.4 % Normal 0.0 - 2.0 % [facility] Basophils/Leukocytes Auto (Bld) [Pure # fraction] 0.0 E9/L Normal 0.0 - 0.2 E9/L [facility] Eosinophils/100 WBC (Bld) 0.4 % Normal 0.0 - 8.0 % [facility] Eosinophils/Leukocytes Auto (Bld) [Pure # fraction] 0.0 E9/L Normal 0.0 - 0.5 E9/L [facility] Lymphocytes/100 WBC (Bld) 9.8 % Low 14.0 - 50.0 % [facility] Lymphocytes/Leukocytes Auto (Bld) [Pure # fraction] 1.1 E9/L Normal 1.0 - 4.0 E9/L [facility] Monocytes/100 WBC (Bld) 5.2 % Normal 4.0 - 14.0 % [facility] Monocytes/Leukocytes Auto (Bld) [Pure # fraction] 0.6 E9/L Normal 0.2 - 1.0 E9/L [facility] Neutrophils/100 WBC (Bld) 84.2 % High 36.0 - 75.0 % [facility] Neutrophils/Leukocytes Auto (Bld) [Pure # fraction] 9.2 E9/L High 2.0 - 7.5 E9/L [facility] HEMATOLOGYOrdered By: Lori Xiong on 06-20-2022 Erythrocyte distribution width (RBC) [Ratio] 15.3 % High 10.9 - 14.2 % [facility] Hematocrit (Bld) [Volume fraction] 27.9 % Low 37.7 - 49.0 % [facility] Hemoglobin (Bld) [Mass/Vol] 9.1 g/dL Low 13.5 - 17.5 gm/dL [facility] Comment on above: Result Comment: RECE NT TRANSFUSION MCH (RBC) [Entitic mass] 28.0 pg Normal 27.0 - 34.0 pg [facility] MCHC (RBC) [Mass/Vol] 32.5 g/dL Normal 31.4 - 36.0 gm/dL [facility] MCV (RBC) [Entitic vol] 86.1 fL Normal 80.0 - 100.0 fL [facility] Platelet mean volume (Bld) [Entitic vol] 8.0 fL Normal 6.4 - 10.8 fL [facility] Platelets (Bld) [#/Vol] 221.0 E9/L Normal 150. 0 - 500.0 E9/L [facility] RBC (Bld) [#/Vol] 3.2 E12/L Low 4.3 - 5.9 E12/L [facility] WBC corrected for nucl RBC Auto (Bld) [#/Vol] 10.9 E9/L Normal 4.0 - 11.0 E9/L [facility] Hep Func Panelon 06-20-2022 Albumin [Mass/Vol] 2.6 g/dL Low 3.3-5.0 [facility] Comment on above: Performed By: #### 2 [id number], 2191290, [id number], 22469390, 0337674, 2581442, [id number] #### [facility] [address] [place] [address] Albumin/Globulin (S) [Mass conc ratio] 1.0 Low 1.1-2.2 [facility] Comment on above: Performed By: #### 2 304968, 8693332, 01528422, 18282628, 6290760, 4048668, [id number] #### [facility] [address] [place] [address] ALP [Catalytic activity/Vol] 55 Int._Unit/L Normal 21-98 [facility] Comment on above: Performed By: #### 2 255477, 4972491, 16265112, 30651558, 6075411, 0427264, 35347484 #### [facility] [address] [place] [address] ALT No additional P-5'-P [Catalytic activity/Vol] 26 Int._Unit/L Normal 6-46 [facility] Comment on above: Performed By: #### 2 283601, 9813859, 71444380, 37997402, 6495827, 8458159, 52661357 #### [facility] [address] [place] [address] AST [Catalytic activity/Vol] 25 Int._Unit/L Normal 5-43 [facility] Comment on above: Performed By: #### 2 488025, 2323945, 88495095, 75694864, 6311230, 1946784, 11269259 #### [facility] [address] [place] [address] Bilirubin [Mass/Vol] 0.5 mg/dL Normal 0.0-1.1 [facility] Comment on above: Performed By: #### 2 463871, 5610064, 41036772, 46059074, 0590692, 9957011, 39034112 #### [facility] [address] [place] [address] Bilirubin.direct [Mass/Vol] 0.1 mg/dL Normal 0.1-0.4 [facility] Comment on above: Performed By: #### 2 622847, 9283327, 61341631, 35945166, 5264927, 6091915, 96092878 #### [facility] [address] [place] [address] Bilirubin.indirect [Mass or moles/Vol] 0.4 mg/dL Normal 0.1-0.9 [facility] Comment on above: Performed By: #### 2 001092, 6656988, 35378780, 99913172, 0063378, 5637403, 05436590 #### [facility] [address] [place] [address] Globulin (S) [Mass/Vol] 2.5 g/dL Normal 1.4-4.[address] [facility] Comment on above: Performed By: #### 2 501876, 0414202, 03621338, 80603035, 2193512, 7199393, 43178887 #### [facility] [address] [place] [address] Protein [Mass/Vol] 5.1 g/dL Low 6.0-7.8 [facility] Comment on above: Performed By: #### 2 864843, 4556930, 02914712, 97435486, 6163441, 4928063, 13254744 #### [facility] [address] [place] [address] Insurance Correspondence Off ice 06-20-2022 Insurance Correspondence Office [id number] [id number]: 127 Normal [facility] Main OR Intraoperative Recor don 06-20-2022 Main OR Intraoperative Record IntraOp Document Type FT Summary Primary Physician: Lexx Horn MD Finalized Date/Time: 06/20/22 10:33:47 Pt. Name: JOSÉ MIGUEL CARRENO/Sex: 1960 Male Med Rec #: [id number] Physician: Betty CHACON DO Financial #: [id number] Pt. Type: O Room/Bed: N217/01 Admit/Disch: 06/18/22 17:40:37 - 06/19/22 14:45:00 Institution: Case Times FT Entry 1 Patient Times In Room 06/19/22 11:33:00 Out Room 06/19/22 11:55:00 Procedure Times Start 06/19/22 11:38:00 Stop 06/19/22 11:53:00 Anesthesia Times Start 06/19/22 11:33:00 Stop 06/19/22 11:55:00 Last Modified By: Nakia Ballard RN 06/19/22 11:54:57 General Comments: 06/20/22 Chart opened to review and send charges [facility] CSFA Case Attendance FT Entry 1 Entry 2 Entry 3 Case Attendee Justina MALLOY, Lexx Ballard RN, Nakia Rizzo MD, Viraj Colon Role Performed Surgeon - Primary Licensed Psychologist - Primary Anesthesiologist of Record Time In 06/19/22 11:33:00 06/19/22 11:33:00 06/19/22 11:33:00 Time Out 06/19/22 11:55:00 06/19/22 11:55:00 06/19/22 11:55:00 Procedure EGD(.) EGD(.) EGD(.) Comments Last Modified By: Elio GRIMES, Nakia Ballard RN, Nakia Chaudhari RN 06/19/22 12:01:22 06/19/22 12:01:22 06/19/22 12:01:22 Entry 4 Case Attendee Katharine Narvaez CST Role Performed Scrub - Primary Time In 06/19/22 11:33:00 Time Out 06/19/22 11:55:00 Procedure EGD(.) Comments Last Modified By: Nakia Ballard RN 06/19/22 12:01:22 Perioperative Protocols FT Pre-Care Text: Implements protective measures prior to operative or invasive procedure, confirms identity before the operative or invasive procedure, verifies operative procedure, surgical site, and laterality Entry 1 Procedure(s) EGD(.) Patient Identity Birthday, ID Band Verified (select at Check, Patient least 2): Participation Consents / H and P Anesthesia Consent, Operative Site N/A Verified HandP, Surgery/Procedure Marking Verified Consent Surgical Site No Laterality Verified n/a Verified Procedure Verified Yes Correct Patient Yes Position Verified Availability Equipment, Medication Prep Dry n/a Verified (If Applicable) PreOp Antibiotic No Time Out Justina MALLOY, Claudy Nye, Given Participants Nakia Ballard RN, Ghafoori, MD, Solange Beasley CST, [place] M Time Out Complete 06/19/22 11:36:00 Outcomes Met? Yes Last Modified By: Nakia Ballard RN 06/19/22 12:01:23 Post-Care Text: The patient is free from signs and symptoms of injury caused by extraneous objects Allergy Information FT Pre-Care Text: Verifies allergies Entry 1 Allergies Reviewed? Yes Allergies Reviewed Self/Patient With Outcomes Met? Yes Last Modified By: Nakia Ballard RN 06/19/22 11:49:36 Post-Care Text: The patient received appropriate medication(s) safely administered during the perioperative period Surgical Procedures FT Entry 1 Procedure Description Procedure EGD Modifiers . Surgeon Description EGD with gastric erosions with mild oozing of blood treated with APC Primary Procedure Yes Primary Surgeon Justina MALLOY, Claudy Nye Start 06/19/22 11:38:00 Stop 06/19/22 11:53:00 Anesthesia Type General Surgical Service Gastroenterology Wound Class 2 - Clean-Contaminated Last Modified By: Nakia Ballard RN 06/19/22 12:20:57 General Case Data FT Pre-Care Text: Classifies surgical wound, implements aseptic technique, initiates traffic control Entry 1 Case Information OR ENDO 1 FT Case Level Level 2 Wound Class 2 - Clean-Contaminated Specialty Gastroenterology ASA Class 2 Preop Diagnosis Melena, GI bleed Postop Same As Preop No Postop Diagnosis Gastric erosions Outcomes Met? Yes Last Modified By: Shannan Hastings CST 06/20/22 10:33:42 Post-Care Text: The patient is free from signs and symptoms of infection Skin Assessment (Pre Procedure) FT Pre-Care Text: Implements protective measures to prevent skin/ tissue injury due to thermal or mechanical sources Evaluates for signs and symptoms of physical injury to skin and tissue Entry 1 Skin Integrity Intact, [place], Warm, and Skin Abnormality No Dry Outcomes Met? Yes Last Modified By: Nakia Ballard RN 06/19/22 11:50:25 Post-Care Text: The patient is free from signs and symptoms of injury caused by extraneous objects Patient Positioning FT Pre-Care Text: Identifies physical alterations that require additional precautions for procedure-specific positioning, verifies presence of prosthetics or corrective devices, positions the patient, evaluates the patient for signs and symptoms of injury as a result of positioning Entry 1 Procedure EGD(.) Body Position Lateral, right side up Feet Uncrossed? Yes Left Arm Position Resting at Side Right Arm Position Resting at Side Left Leg Position Extended Right Leg Position Extended Positioning Device Safety Strap, Pillow Under Head Large Press Points Checked Yes By Nakia Ballard RN Outcomes Me (more content not included)... Normal [facility] Main OR PACU I Recordon 04 Main OR PACU I Record PACU Phase I Docum ent Type FT Summary Primary Physician: Brady HELLER MD Finalized Date/Time: 06/20/22 16:01:23 Pt. Name: JOSÉ MIGUEL CARRENO./Sex: 1960 Male Med Rec #: [id number] Physician: Betty CHACON DO Financial #: [id number] Pt. Type: I Room/Bed: [place] [address] Admit/Disch: 06/19/22 21:41:46 - Institution: Case Times PACU I FT Pre-Care Text: Identifies barriers to communication and implements measures to provide psychological support Develops individualized plan of care, and ensures continuity of care Maintains patient's dignity and privacy, and maintains patient confidentiality Identifies and reports philosophical, cultural, and spiritual beliefs and values Identifies individual values and wishes concerning care Implements aseptic technique, and administers prescribed antibiotic therapy and immunizing agents as ordered Evaluates postoperative tissue perfusion Implements thermoregulation measures, and monitors body temperature Evaluates postoperative respiratory status Evaluates postoperative cardiac status Evaluates postoperative neurological status Assesses pain control, collaborated in initiating patient-controlled analgesia and implements alternative methods of pain control Verifies allergies, administers prescribed medications and solutions, evaluates response to medications Entry 1 In PACU I 06/20/22 15:09:00 Discharge from PACU 06/20/22 15:39:00 I Outcomes Met? Yes Last Modified By: Marcy Diaz RN 06/20/22 16:01:03 Post-Care Text: The patient demonstrates knowledge of the expected response to the operative or invasive procedure The patient's care is consistent with the individualized perioperative plan of care The patient's right to privacy is maintained The patient's value system, lifestyle, ethnicity, and culture are considered, respected, and incorporated into the perioperative plan of care The patient participates in decisions affecting his or her perioperative plan of care The patient is free from signs and symptoms of infection The patient has wound/tissue perfusion consistent with or improved from baseline levels established preoperatively The patient is at or returning to normothermia at the conclusion of the immediate postoperative period The patient's respiratory function is consistent with or improved from baseline levels established preoperatively The patient's cardiovascular status is consistent with or improved from baseline levels established preoperatively The patient's cardiovascular status is consistent with or improved from baseline levels established preoperatively The patient demonstrates and/or reports adequate pain control throughout the perioperative period The patient received appropriate medication(s), safely administered during the perioperative period Acuity Level PACU I FT Entry 1 Start Time 06/20/22 15:09:00 Stop Time 06/20/22 15:39:00 Acuity Level Acuity Level I Last Modified By: Marcy Diaz RN 06/20/22 16:01:22 Finalized By: Marcy Diaz RN Document Signatures Signed By: Marcy Diaz RN 06/20/22 16:01 Normal [facility] Main OR Preoperative Recordo n 06-20-2022 Main OR Preoperative Record Holding Area Document Type FT Summary Primary Physician: Brady HELLER MD Finalized Date/Time: 06/20/22 14:10:21 Pt. Name: JOSÉ MIGUEL CARRENO./Sex: 1960 Male Med Rec #: [id number] Physician: Betty CHACON DO Financial #: [id number] Pt. Type: I Room/Bed: [place] [address] Admit/Disch: 06/19/22 21:41:46 - Institution: Case Times Holding FT Pre-Care Text: Verifies consent for planned procedure, identifies individual values and wishes concerning care, includes family members in perioperative teaching Secures patient's records' belongings, and valuables, maintains patient's dignity and privacy, and maintains patient confidentiality Entry 1 In Holding 06/20/22 13:40:00 Outcomes Met? Yes Last Modified By: Keith GRIMES, Marielos Colon 06/20/22 14:09:35 Post-Care Text: The patient participates in decisions affecting his or her perioperative plan of care The patient's right to privacy is maintained Surgery Checklist FT Entry 1 Patient Birthday, ID Band Procedure History and Physical, Identification: Check, Patient Verification: Surgical Consent, With Participation Patient NPO after Midnight: Yes Date/Time: 06/20/22 00:00:00 Personal Items: Defibrilator, Pacemaker Personal Items pacemaker Comment: Limitations: n/a Complaints of Pain: No Pain Comment: denies Operative Site n/a Marking: Marked By: n/a Availability Equipment Verified: Does Patient Smoke No Patient states Yes Comment - Adult - Hannah postop adult Supervision supervision available Case Cancelled in No Holding Area see comments below for reason Last Modified By: Marielos Parker RN 06/20/22 14:10:20 Finalized By: Marielos Parker RN Document Signatures Signed By: Marielos Parker RN 06/20/22 14:10 Normal [facility] Monitor Recordon 06-20-2022 Monitor Record [id number] :127 Normal [facility] Monitor Record [id number] :127 Normal [facility] PT & PTTon 06-20-2022 aPTT Coag (PPP) [Time] 25.9 second(s) Normal 25.1-36.5 [facility] Comment on above: Result Comment: Para meter 15 days - 4 weeks 1 - 5 months 6 - 11 months 1 - 5 years 6 - 10 years 11 - 17 years PTT Mean: 35.4 (27.6-45.6) Mean: 33.5 (24.8-40.7) Mean: 32.4 (25.1-40.7) Mean: 31.6 (24.0-39.2) Mean: 31.6 (26.9-38.7) Mean: 31.0 (24.6-38.4) Pediatric Reference ranges were obtained from a study by Todd Barboza et al. prepared from 1437 samples obtained at 7 different centers using the same coagulation reagent and instrumentation as [facility]. Currently there are no coagulation studies available worldwide for children to 14 days, and no normal ranges. Heparin therapeutic range (represented by Anti-Factor Xa activity of 0.2 - 0.4 U/mL) corresponds to PTT of 56.6 - 109.0 sec. Performed By: #### 2 [id number], [id number], [id number], [id number], 8452137, 8826320, [id number] #### [facility] [address] [place] [address] INR Coag (PPP) [Relative time] 1.1 {INR} Invalid Interpretation Code [facility] Comment on above: Result Comment: INR results are specifically intended to assess patients stabilized on long-term Anticoagulation therapy suggested INR?s ?Less Intensive Anticoagulation? 2.0 ? 3.0 Conventional Range 3.0 ? 4.5 Performed By: #### 2 254016, [id number], 75724260, 25482864, 9187626, 9730402, [id number] #### [facility] [address] [place] [address] PT Coag (PPP) [Time] 12.7 second(s) High 9.4-12.5 [facility] Comment on above: Result Comment: 15 d ays - 4 weeks 1 - 5 months 6 -11 months 1 ? 5 years 6 ? 10 years 11 -17 years Mean: 11.2 (9.5 ? 12.6) Mean: 11.0 (9.7 ? 12.8) Mean: 11.0 (9.8 ? 13.0) Mean: 11.3 (9.9 ? 13.4) Mean: 11.7 (10.0 ? 14.6) Mean: 11.8 (10.0 - 14.1) Pediatric Reference ranges were obtained from a study by Todd Barboza et al. prepared from 1437 samples obtained at 7 different centers using the same coagulation reagent and instrumentation as [facility]. Currently there are no coagulation studies available worldwide for children to 14 days, and no normal ranges. Performed By: #### 2 787520, 5656405, 44441943, 59138113, 0430998, 5309411, [id number] #### [facility] [address] [place] [address] Patient Education - Texton 0 06-20-2022 Patient Education - Text Normal [facility] Pre-Certification Formon Pre-Certification Form [id number] :127 Normal [facility] Progress Note-Physicianon Progress Note-Physician Patient: GENNARO CARRENO Age: 62 years Sex: Male : 1960 Associated Diagnoses: None Author: Herman Perry Jr., DO Postoperative Information Postoperative disposition: Postoperative disposition: Home. Optimetrix number: Optimetrix number [id number]. Anesthetic utilized: General. Physical Examination Vital Signs 06/20/2022 16:05 EDT Temperature Oral 36.7 DegC Peripheral Pulse Rate 78 bpm Respiratory Rate 20 br/min Systolic Blood Pressure 122 mmHg Diastolic Blood Pressure 76 mmHg SpO2 100 % 06/20/2022 15:39 EDT Temperature Temporal Artery 36.7 DegC Heart Rate Monitored 86 bpm Respiratory Rate Monitored 14 br/min Systolic Blood Pressure 122 mmHg Diastolic Blood Pressure 85 mmHg Blood Pressure Location Left arm Mean Arterial Pressure, Cuff 97 mmHg SpO2 97 % 06/20/2022 15:24 EDT Heart Rate Monitored 94 bpm Respiratory Rate Monitored 20 br/min Systolic Blood Pressure 119 mmHg Diastolic Blood Pressure 77 mmHg Blood Pressure Location Left arm Mean Arterial Pressure, Cuff 91 mmHg SpO2 100 % 06/20/2022 15:19 EDT Heart Rate Monitored 99 bpm Respiratory Rate Monitored 18 br/min Systolic Blood Pressure 103 mmHg Diastolic Blood Pressure 72 mmHg Blood Pressure Location Left arm Mean Arterial Pressure, Cuff 82 mmHg SpO2 97 % 06/20/2022 15:14 EDT Heart Rate Monitored 96 bpm Respiratory Rate Monitored 15 br/min Systolic Blood Pressure 90 mmHg Diastolic Blood Pressure 60 mmHg Blood Pressure Location Left arm Mean Arterial Pressure, Cuff 70 mmHg SpO2 95 % 06/20/2022 15:09 EDT Temperature Temporal Artery 36.2 DegC LOW Heart Rate Monitored 99 bpm Respiratory Rate Monitored 15 br/min Systolic Blood Pressure 87 mmHg LOW Diastolic Blood Pressure 59 mmHg LOW Blood Pressure Location Left arm Mean Arterial Pressure, Cuff 68 mmHg SpO2 97 % Pain Assessment: Controlled. General: Awake, Alert, Appropriate. Respiratory: Adequate air exchange, Non-labored. Cardiovascular: Stable, Normal peripheral perfusion. Neurological: Neurologic exam at baseline. No changes.. Assessment Anesthetic outcome No anesthetic complications noted. No nausea/vomiting. Review / Management Condition: Stable. Plan Transfer/Discharge: Transfer/Discharge Discharge when meets criteria ( From PACU to Ambulatory Surgery Unit, and To home ). Normal [facility] Comment on above: Result Comment: Elec tronically Signed By: Herman Perry Jr., DO\.br\Date and Time Signed: 06/20/22 16:13 EDT Progress Note-Physician Patient: GENNARO CARRENO Age: 62 years Sex: Male : 1960 Associated Diagnoses: None Author: Herman Perry Jr., DO Preoperative Information Anesthesia history: Patient history: No prior anesthetic problems. Informed consent: Signed by patient. Re-evaluation prior to induction: Initial evaluation reviewed: No significant change. Review of Systems Respiratory: Negative except as documented in history of present illness. Cardiovascular: Negative except as documented in history of present illness. Health Status Allergies: Allergic Reactions (Selected) Severity Not Documented AzaTHIOprine- Joint pain. Tylenol- Fever., Allergies (2) Active Reaction azaTHIOprine Joint pain Tylenol Fever Current medications: (Selected) Inpatient Medications Ordered Benadryl 25 mg Cap: 25 mg = 1 cap(s), Cap, Oral, q6hr PRN Itching, Routine, Start date 06/20/22 2:02:00 EDT, 06/20/22 2:02:00 EDT Carafate 1 g/10 mL Susp-Oral: 1,000 mg = 10 mL, Susp-Oral, Oral, QID, Routine, Start date 06/20/22 9:00:00 EDT, 06/20/22 2:07:00 EDT DuoNeb 2.5 mg-0.5 mg/3 mL Soln-Inh: 3 mL, Soln-Inh, Inhalation, QID PRN Dyspnea for 30 day(s), Stop date 07/20/22 1:55:00 EDT, Routine, Start date 06/20/22 1:56:00 EDT Lactated Ringers IV Rosemary 1000 mL 1,000 mL: 1,000 mL, IV, 100 mL/hr, Routine, Start date 06/20/22 13:21:00 EDT, 10 hour(s), Total volume (mL): 1,000, 92 kg, 2.22, m2 NS 1000 mL Soln-IV 1,000 mL: 1,000 mL, IV, 125 mL/hr, Routine, Start date 06/20/22 2:02:00 EDT, 8 hour(s), Total volume (mL): 1,000, 92 kg, 2.22, m2 Phenergan 25 mg/mL Injection: 12.5 mg = 0.5 mL, Injection, IV Push, q6hr PRN Nausea, Routine, Start date 06/20/22 2:02:00 EDT, 06/20/22 2:02:00 EDT Sodium Chloride 0.9% IV Rosemary 250 mL bag 250 mL: 250 mL, IV, 20 mL/hr, Other (see comment), Routine, Start date 06/20/22 9:06:00 EDT, 12.5 hour(s), Total volume (mL): 250, 92 kg, 2.22, m2 Sodium Chloride 0.9% IV Rosemary 500 mL 500 mL: 500 mL, IV, 20 mL/hr, Other (see comment), Routine, Start date 06/20/22 9:06:00 EDT, 25 hour(s), Total volume (mL): 500, 92 kg, 2.22, m2 Zofran 4 mg/2 mL Injection: 4 mg = 2 mL, Injection, IV Push, q6hr PRN Nausea, Routine, Start date 06/20/22 2:02:00 EDT, 06/20/22 2:02:00 EDT acetaminophen 325 mg Tab: 650 mg = 2 tab(s), Tab, Oral, q6hr PRN Pain, Routine, Start date 06/20/22 2:02:00 EDT, 06/20/22 2:02:00 EDT amLODIPine 5 mg Tab: 5 mg = 1 tab(s), Tab, Oral, Daily, Routine, Start date 06/20/22 9:00:00 EDT, 06/20/22 2:04:00 EDT hydrALAZINE 20 mg/mL Inj: 10 mg = 0.5 mL, Injection, IV Push, q6hr PRN Other (see comment), Routine, Start date 06/20/22 2:02:00 EDT, 06/20/22 2:02:00 EDT hydrocortisone 100 mg Inj: 100 mg = 1 EA, Injection, IV Push, q8hr, Routine, Start date 06/20/22 3:00:00 EDT, 06/20/22 2:42:00 EDT lisinopril 20 mg Tab: 20 mg = 1 tab(s), Tab, Oral, Daily, Routine, Start date 06/20/22 9:00:00 EDT, 06/20/22 2:05:00 EDT metoprolol 25 mg ER Tab: 12.5 mg = 0.5 tab(s), Tab-ER, Oral, Daily, Routine, Start date 06/20/22 9:00:00 EDT, 06/20/22 2:05:00 EDT pantoprazole 40 mg IV Inj: 40 mg = 10 mL, Injection, IV Push, BID, Routine, Start date 06/20/22 21:00:00 EDT, 06/20/22 9:51:00 EDT Prescriptions Prescribed Carafate 1 gram Tab: 1 gm = 1 tab(s), Oral, QID, # 120 tab(s), Refills(s) 0, Pharmacy: [id number], 197, cm, 06/18/22 17:47:00 EDT, Height/Length Dosing, 92, kg, 06/18/22 17:47:00 EDT, Weight Dosing Protonix 40 mg Tab-DR: 40 mg = 1 tab(s), Oral, Daily, # 30 tab(s), Refills(s) 1, Pharmacy: [facility] #[id number], 197, cm, 06/18/22 17:47:00 EDT, Height/Length Dosing, 92, kg, 06/18/22 17:47:00 EDT, Weight Dosing polyethylene glycol 3350 with electrolytes Oral Pwdr for Roseamry 4000 mL (NuLytely): See Instructions, 1 EA, Refill(s) 0, per physician's instructions prior to colonoscopy, [facility] #[id number], 197, cm, 10/06/21 9:20:00 EDT, Height/Length Dosing, 93, kg, 10/06/21 9:20:00 EDT, Weight Dosing Documented Medications Documented Multi Vitamin+: Daily, Refill(s) 0 Skyrizi: See Instructions, q4wk, Refills(s) 0 Vitamin B-12 1000 mcg/mL injectable solution: IntraMuscular, qMonth, Refills(s) 0 Vitamin D3 1000 intl units oral capsule: mcg cap(s), Oral, Daily, Refills(s) 0 amLODIPine 5 mg Tab: Oral, Daily, Refills(s) 0 budesonide: 6 mg, Oral, qAM, Refills(s) 0 lisinopril 20 mg Tab: mg tab(s), Oral, Daily, Refills(s) 0 magnesium oxide base 500 mg oral tablet: mg, tab(s), Oral, Daily, Refill(s) 0 metoprolol 25 mg ER Tab: 12.5 mg = 0.5 tab(s), Oral, Daily, Refills(s) 0 potassium chloride 20 mEq ER Tab: 40 mEq = 2 tab(s), Oral, Daily, Refills(s) 0 predniSONE: 10 mg, Oral, Daily, Refills(s) 0, Home Medications (14) Active amLODIPine 5 mg Tab , Oral, Daily budesonide 6 mg, Oral, qAM Carafate 1 gram Tab 1 gm = 1 tab(s), Oral, QID lisinopril 20 mg Tab , Oral, Daily magnesium oxide base 500 mg oral tablet , Oral, Daily metoprolol 25 mg ER Tab 12.5 mg = 0.5 tab(s), Oral, Daily Multi Vitamin+ , Daily polyethylene glycol 3350 with elec (more content not included)... Normal [facility] Comment on above: Result Comment: Elec tronically Signed By: Herman Perry Jr., DO\.br\Date and Time Signed: 06/20/22 13:23 EDT RAD - Preliminary Cat Scan R eporton 06-20-2022 RAD - Preliminary Cat Scan Report [id number] :127 Normal [facility] RCOon 06-20-2022 # of Units 2 Invalid Interpretation Code [facility] Comment on above: Result Comment: 06/20 9:17 [id number] Blood product ready and called to Laney STRAUSS at 06/20/2022 09:17:55 EDT by AG. Performed By: #### 1 [id number] ####[facility] [id number] [place] [address] Date Required 06/20/2022 Invalid Interpretation Code [facility] Comment on above: Performed By: #### 1 [id number] ####[facility] [address] [place] [address] Product Type None Required Invalid Interpretation Code [facility] Comment on above: Performed By: #### 1 [id number] ####[facility] [address] [place] [address] Troponin 0 Hr.on 06-20-2022 Troponin I.cardiac [Mass/Vol] 8.30 pg/mL Low 15.90-38.4 0 [facility] Comment on above: Result Comment: The 95% CI (Confidence Interval) PPV (Positive Predictive Value) for myocardial infarction in females is 38 pg/mL, in males 51 pg/mL. The results should be used in conjunction with clinical conditions of myocardial infarction. (Access High Sensitivity Troponin I Instructions For Use, [employer], October 2017) Performed By: #### 2 991010, 8730318, 31356467, 79401449, 1534434, 6200912, [id number] #### [facility] [address] [place] [address] Troponin 3 Hr.on 06-20-2022 Troponin I.cardiac [Mass/Vol] 13.40 pg/mL Low 15.90-38.4 0 [facility] Comment on above: Result Comment: The 95% CI (Confidence Interval) PPV (Positive Predictive Value) for myocardial infarction in females is 38 pg/mL, in males 51 pg/mL. The results should be used in conjunction with clinical conditions of myocardial infarction. (Access High Sensitivity Troponin I Instructions For Use, [employer], October 2017) Performed By: #### 2 162775, 9180999, 51302666, 51000543, 2581757, 2933688, 86445321 #### [facility] [address] [place] [address] Troponin 6 Hr.on 06-20-2022 Troponin I.cardiac [Mass/Vol] 13.10 pg/mL Low 15.90-38.4 0 [facility] Comment on above: Result Comment: The 95% CI (Confidence Interval) PPV (Positive Predictive Value) for myocardial infarction in females is 38 pg/mL, in males 51 pg/mL. The results should be used in conjunction with clinical conditions of myocardial infarction. (Access High Sensitivity Troponin I Instructions For Use, LivestationOctober 2017) Performed By: #### 1 [id number] ####[facility] [address] [place] [address] Troponin 9 Hr.on 06-20-2022 Troponin I.cardiac [Mass/Vol] 13.40 pg/mL Low 15.90-38.4 0 [facility] Comment on above: Result Comment: The 95% CI (Confidence Interval) PPV (Positive Predictive Value) for myocardial infarction in females is 38 pg/mL, in males 51 pg/mL. The results should be used in conjunction with clinical conditions of myocardial infarction. (Access High Sensitivity Troponin I Instructions For Use, Neva [place], October 2017) Performed By: #### 2 707274, 2940816, 22886278, 66809633, 6038467, 5037809, 97002407 #### [facility] [address] [place] [address] eGFRon 06-20-2022 GFR/1.73 sq M.predicted among blacks MDRD (S/P/Bld) [Vol rate/Area] mL/min/{1.73_m2} Normal >=59 [facility] Comment on above: Order Comment: Order added by Discern Expert. Result Comment: eGFR is race adjusted. AA=. Performed By: #### 2 955419, 5389538, 45222744, 27758260, 0436130, 8241495, 94816463 #### [facility] [address] [place] [address] GFR/1.73 sq M.predicted among non-blacks MDRD (S/P/Bld) [Vol rate/Area] mL/min/{1.73_m2} Normal >=59 [facility] Comment on above: Order Comment: Order added by Discern Expert. Result Comment: [employer] c[employer] kidney disease could be indicated at eGFR's of less than 60 mL/min/1.73m2. Kidney failure is indicated at less than 15 mL/min/1.73m2. Performed By: #### 2 853133, 1879892, 80244900, 77710124, 7052781, 4535934, 95821236 #### [facility] [address] [place] [address] ABO/Rhon 06-19-2022 ABO/Rh Negative Invalid Interpretation Code [facility] Comment on above: Performed By: #### 2 [id number] #### [facility] [address] [place] [address] ABO/Rh History Checkon 06-19 ABO/Rh History Check Type verified by se cond s Normal [facility] Comment on above: Performed By: #### 2 [id number] #### [facility] [address] [place] [address] ABO/Rh Retypeon 06-19-2022 ABO/Rh Retype Interp Negative Invalid Interpretation Code [facility] Comment on above: Performed By: #### 2 530062, 2741113, 65640650, 65118856, 0639554, 1770530, 35698029 #### [facility] [address] [place] [address] ABSCon 06-19-2022 ABSC Gel Interp Negative Normal [facility] Comment on above: Performed By: #### 2 [id number] #### [facility] [address] [place] [address] BLOOD BANKOrdered By: Leonel Ruelas on 06-19-2022 ABO/Rh Interp Negative Invalid Interpretation Code [facility] BB Subsection ABSC Gel Interp Negative (06/19/22 10:24 PM) Normal [facility] BB Subsection BLOOD BANKOrdered By: Nakia Parra on 06-19-2022 ABO/Rh Interp Negative Invalid Interpretation Code [facility] BB Subsection ABSC Gel Interp Negative (06/19/22 5:56 AM) Normal [facility] BB Subsection Blood Bank ID#on 06-19-2022 BBID# [id number] Invalid Interpretation Code [facility] Comment on above: Performed By: #### 2 [id number] #### [facility] [address] [place] [address] CBC w/Indiceson 06-19-2022 Erythrocyte distribution width (RBC) [Ratio] 15.4 % High 10.9-14.2 [facility] Comment on above: Performed By: #### 2 720930, 8190620, 08573854, 77220012, 4216436, 9208025, 12410633 #### [facility] [address] [place] [address] Hematocrit (Bld) [Volume fraction] 28.3 % Low 37.7-49.0 [facility] Comment on above: Performed By: #### 2 849023, 9531550, 69216191, 31308510, 7404969, 0588025, 66725560 #### [facility] [address] [place] [address] Hemoglobin (Bld) [Mass/Vol] 9.5 g/dL Low 13.5-17.5 [facility] Comment on above: Performed By: #### 2 840451, 7258045, 97527844, 38400957, 8995622, 1970532, 73847086 #### [facility] [address] [place] [address] MCH (RBC) [Entitic mass] 27.8 pg Normal 27.0-34.0 [facility] Comment on above: Performed By: #### 2 148234, 8981122, 54746557, 12097321, 3305597, 1001783, 67589588 #### [facility] [address] [place] [address] MCHC (RBC) [Mass/Vol] 33.5 g/dL Normal 31.4-36.0 [facility] Comment on above: Performed By: #### 2 812136, 5085223, 76505639, 59247577, 8102859, 0441841, 42916483 #### [facility] [address] [place] [address] MCV (RBC) [Entitic vol] 83.0 fL Normal 80.0-100.0 [facility] Comment on above: Performed By: #### 2 767340, 2938184, 25055700, 23895253, 7842581, 1311603, 84238995 #### [facility] [address] [place] [address] Platelet mean volume (Bld) [Entitic vol] 8.4 fL Normal 6.4-10.8 [facility] Comment on above: Performed By: #### 2 149577, 5281653, 35513656, 80845089, 4314242, 8752065, 07028057 #### [facility] [address] [place] [address] Platelets (Bld) [#/Vol] 234.0 E9/L Normal 150. 0-500. 0 [facility] Comment on above: Performed By: #### 2 173787, 3431924, 73390882, 45993690, 4498200, 0190812, 19472370 #### [facility] [address] [place] [address] RBC (Bld) [#/Vol] 3.4 E12/L Low 4.3-5.9 [facility] Comment on above: Performed By: #### 2 824516, 8219691, 97696180, 56971369, 1553302, 5407927, 22750374 #### [facility] [address] [place] [address] WBC corrected for nucl RBC Auto (Bld) [#/Vol] 9.0 E9/L Normal 4.0-11.0 [facility] Comment on above: Performed By: #### 2 851183, 6617706, 30665269, 61164636, 8158941, 7404772, 50992842 #### [facility] [address] [place] [address] CHEMISTRYOrdered By: SYSTEM SYSTEM on 06-19-2022 Albumin [Mass/Vol] 2.6 g/dL Low 3.3 - 5.0 gm/dL [facility] Albumin/Globulin [Mass ratio] 1.0 {ratio} Low 1.1 - 2.2 [facility] ALP [Catalytic activity/Vol] 55 [iU]/d Normal 21 - 98 Int._Unit/ L [facility] ALT No additional P-5'-P [Catalytic activity/Vol] 26 [iU]/d Normal 6 - 46 Int._Unit/ L [facility] Anion gap [Moles/Vol] 11 mmol/L Normal 6 - 16 mEq/L [facility] AST [Catalytic activity/Vol] 25 [iU]/d Normal 5 - 43 Int._Unit/ L [facility] Bilirubin [Mass/Vol] 0.5 mg/dL Normal 0.0 - 1 .1 mg/dL [facility] Bilirubin.direct [Mass/Vol] 0.1 mg/dL Normal 0.1 - 0.4 mg/dL [facility] Bilirubin.indirect [Mass or moles/Vol] 0.4 mg/dL Normal 0.1 - 0.9 mg/dL [facility] Calcium [Mass/Vol] 8.2 mg/dL Low 8.9 - 11. 1 mg/dL [facility] Chloride [Moles/Vol] 107 mmol/L Normal 101 - 1 11 mmol/L [facility] CO2 [Moles/Vol] 23 mmol/L Normal 21 - 31 mmol/L [facility] Creatinine [Mass/Vol] 1.1 mg/dL Normal 0.5 - 1.3 mg/dL [facility] GFR/1.73 sq M.predicted among blacks MDRD (S/P/Bld) [Vol rate/Area] mL/min/1.73 m2 Normal >=59mL/min /1.73 m2 [facility] Chem S GFR/1.73 sq M.predicted among non-blacks MDRD (S/P/Bld) [Vol rate/Area] mL/min/1.73 m2 Normal >=59mL/min /1.73 m2 [facility] Chem S Globulin (S) [Mass/Vol] 2.5 g/dL Normal 1.4 - 4.0 gm/dL [facility] Glucose [Mass/Vol] 160 mg/dL Normal 55 - 199 mg/dL [facility] Potassium [Moles/Vol] 4.3 mmol/L Normal 3.5 - 5.3 mmol/L [facility] Protein [Mass/Vol] 5.1 g/dL Low 6.0 - 7.8 gm/dL [facility] Sodium [Moles/Vol] 137 mmol/L Normal 135 - 145 mmol/L [facility] Urea nitrogen [Mass/Vol] 23 mg/dL High 5 - 21 mg/dL [facility] Urea nitrogen/Creatinine [Mass ratio] 21 mg/mg High 10 - 20 [facility] COAGULATIONOrdered By: Magdalene Ruelas on 06-19-2022 aPTT Coag (PPP) [Time] 25.9 s Normal 25.1 - 36.5 second(s) [facility] Auto Coag INR Coag (PPP) [Relative time] 1.1 {INR} Invalid Interpretation Code [facility] Coag PT Coag (PPP) [Time] 12.7 s High 9.4 - 1 2.5 second(s) [facility] Auto Coag CTA Abdomen and Pelvison CTA Abdomen and Pelvis Exam Date/Time: 06/18/2022 19:55 EDT Reason for Exam: Lower GI bleed;Other (please specify) Report IMPRESSION: FOCAL SMALL BOWEL WALL THICKENING WITH ADJACENT INFLAMMATION OF THE ANTERIOR MID ABDOMEN IS NONSPECIFIC AND MAY REPRESENT ENTERITIS OR INFLAMMATORY PROCESS SUCH CROHN'S DISEASE. MASS IN THIS LOCATION IS NOT EXCLUDED AND FOLLOW-UP CT OF THE ABDOMEN/PELVIS WITH CONTRAST IS RECOMMENDED WHEN THE PATIENT'S SYMPTOMS HAVE RESOLVED. MULTIPLE MILDLY DISTENDED LOOPS OF SMALL BOWEL MAY REPRESENT ENTERITIS OR ILEUS. SMALL BOWEL OBSTRUCTION MAY BE CONSIDERED IN THE APPROPRIATE CLINICAL SETTING. EXAM: CTA Abdomen and Pelvis History: Lower GI bleed Technique: Multiple contiguous axial images were obtained of the abdomen and pelvis from the level of the lung bases through the ischial tuberosities with contrast. Multiplanar reformats were obtained. Delayed images were obtained. Comparison: None available Findings: Lung bases are clear. 1.5 cm cyst of the left lobe of the liver. The liver is otherwise within normal limits. The gallbladder, spleen, stomach, pancreas, and adrenal glands are within normal limits. The kidneys enhance uniformly. 2 cm right renal cyst. No urinary tract calculi or hydronephrosis. Urinary bladder is well distended. The prostate does not appear enlarged. Abdominal aorta is nonaneurysmal. The celiac artery, superior mesenteric artery, inferior mesenteric artery, and renal arteries are patent. No retroperitoneal or abdominal/pelvic lymphadenopathy. There are a few mildly distended loops of small bowel throughout the abdomen that contain fluid. There is wall thickening of a small bowel loop within the anterior aspect of the abdomen with adjacent inflammation. Postsurgical changes of bowel within the anterior lower abdomen. No acute osseous abnormality. Degenerative changes at L5-S1. Report All CT scans at this facility use dose modulation, iterative reconstruction, and/or weight based dosing when appropriate to reduce radiation dose to as low as reasonably achievable. Ordering Provider: Aliyah Mcmahan FINAL REPORT Dictated: 06/19/2022 10:19 am Ollie Root DO Signed (Electronic Signature): 06/19/2022 10:19 am Signed by: Ollie Root DO Transcribed by: FLEX Technologist: AMANUEL Technical Comments GFR (mL/min/1/73m2) >60 Contrast: Isovue 370 Contrast amount in ml's: 100 Normal [facility] Consent for Treatmenton Consent for Treatment [id number]#[id number]: 127 Normal [facility] Discharge Note-Nursingon Discharge Note-Nursing JOSÉ MIGUEL CARRENO :1960 Visit Date:06/18/2022 Inpatient Discharge Instructions Your Care Team Admitting Physician - Betty CHACON DO Consulting Physician - Justina MALLOY, Claudy T. Reason for Your Visit patient c/o dark tarry stools that started a few days ago. denies abdominal pain hx chrohns Your Diagnosis Upper GI bleed Blood loss anemia Crohn's disease, small and large intestine HTN (hypertension) On deep vein thrombosis (DVT) prophylaxis Anemia Blood in stool Melena Tests Performed ABO/Rh ABO/Rh Retype Antibody Screen Automated Diff BMP CBC w/ Auto Diff CBC w/ Indices eGFR Occult Blood Stl CTA Abdomen and Pelvis This Is Your Medications List amlodipine (amLODIPine 5 mg Tab) budesonide cholecalciferol (Vitamin D3 1000 intl units oral capsule) cyanocobalamin (Vitamin B-12 1000 mcg/mL injectable solution) lisinopril (lisinopril 20 mg Tab) magnesium oxide (magnesium oxide base 500 mg oral tablet) metoprolol (metoprolol 25 mg ER Tab) multivitamin (Multi Vitamin+) pantoprazole (Protonix 40 mg Tab-DR) polyethylene glycol 3350 with electrolytes (polyethylene glycol 3350 with electrolytes Oral Pwdr for Rosemary 4000 mL (NuLytely)) potassium chloride (potassium chloride 20 mEq ER Tab) predniSONE risankizumab (Skyrizi) sucralfate (Carafate 1 gram Tab) Discharge Vitals Temperature (Temporal Artery) 37 ?C Heart Rate (Monitored) 87 Respiratory Rate 15 Blood Pressure 114/78 Height 193 cm Weight 92 kg BMI 24.7 What to do next Instructions From Your Doctor Event Name Event Result Discharge Activity Ambulate as tolerated Discharge Restrictions No restrictions Discharge Diet(s) Regular Pending Diagnostic Test Results None Pharmacy Information Other: [facility] Previously Scheduled Follow-Up Appointments Monday 9:00 AM EDT With: GER MALLOY, Brady Where: [facility] ED Clinical Summaryon 2022 ED Clinical Summary (Inserted Image. Angeli ble to display) [address] [address] ED Clinical Summary Person Information Name: JOSÉ MIGUEL CARRENO/NewMarika Age: 62 Years : 1960 Sex: Male Language: Burundian PCP: DELMIS HORN DO Marital Status: Visit Id: Visit Reason: Blood in stool; GI BLEED-BLOOD IN STOOL Speciality: Acuity: 3 Enc Type: Observation Med Service: Medical Arrival: 06/18/2022 17:40:37 Discharge: LOS: 000 06:42 Checkin: 06/18/2022 17:40:37 Checkout: 06/19/2022 00:22:31 Dispo Type: Admitted as IP to this [facility] EVENTS: Event Name Event Status Request Date/Time Start Date/Time Complete Date/Time Arrive Complete 06/18/2022 17:40:37 06/18/2022 17:40:37 06/18/2022 17:40:37 Document Home Meds Request 06/18/2022 17:40:37 Triage Complete 06/18/2022 17:40:37 06/18/2022 17:47:24 06/18/2022 17:47:24 Bed Assign Complete 06/18/2022 17:44:06 06/18/2022 17:44:06 06/18/2022 17:44:06 Dr Exam Complete 06/18/2022 17:44:06 06/18/2022 17:51:54 06/18/2022 17:51:54 RN Exam Complete 06/18/2022 17:44:06 06/18/2022 18:20:41 06/18/2022 18:20:41 Registration Complete 06/18/2022 17:45:19 06/18/2022 17:45:19 06/18/2022 17:45:19 Reg Complete Request 06/18/2022 17:45:19 Registration Complete 06/18/2022 17:51:54 06/18/2022 19:10:39 06/18/2022 19:10:39 Dr Exam Complete 06/18/2022 17:54:47 06/18/2022 17:54:47 06/18/2022 17:54:47 Pending Labs Complete 06/18/2022 18:07:30 06/18/2022 19:03:30 Lab Complete 06/18/2022 18:07:30 06/18/2022 18:52:25 EKG Complete 06/18/2022 18:07:30 06/18/2022 18:24:02 Pending Labs Complete 06/18/2022 18:38:31 06/18/2022 18:38:31 06/18/2022 18:52:26 Lab Complete 06/18/2022 18:38:31 06/18/2022 18:38:31 06/18/2022 18:52:26 Pending Labs Complete 06/18/2022 18:45:06 06/18/2022 18:45:06 06/18/2022 18:45:11 Lab Complete 06/18/2022 18:45:06 06/18/2022 18:45:06 06/18/2022 18:45:11 Pending Labs Complete 06/18/2022 19:07:52 06/18/2022 19:07:52 06/18/2022 19:07:53 NPO Request 06/18/2022 21:20:57 Meds Admin Complete 06/18/2022 21:20:57 06/18/2022 21:49:46 Consult Request 06/18/2022 21:20:57 Consult Request 06/18/2022 21:24:39 Hospitalist Consult Request 06/18/2022 21:24:39 Patient Care Request 06/18/2022 21:32:40 Patient Care Request 06/18/2022 21:32:40 Patient Care Request 06/18/2022 21:32:41 Patient Care Request 06/18/2022 21:32:41 Meds Admin Request 06/18/2022 22:00:16 Patient Care Request 06/18/2022 23:33:48 NPO Request 06/18/2022 23:33:48 Meds Admin Request 06/18/2022 23:33:48 Bed Request Request 06/18/2022 23:33:48 Reg Bed Request Request 06/18/2022 23:33:48 Admit Request 06/18/2022 23:33:48 Pending Labs Request 06/18/2022 23:33:48 Lab Request 06/18/2022 23:33:48 Consult Request 06/18/2022 23:33:48 Blood Collect Request 06/18/2022 23:33:48 ADDRESS: [address] [place] [id number] PHYS DOC NOTES: MEDICAL INFORMATION: Prescriptions Given: Medications to Continue with No Changes Other Medications budesonide cholecalciferol (Vitamin D3 1000 intl units oral capsule) By Mouth every day. cyanocobalamin (Vitamin B12 50 mcg oral tablet) By Mouth every day. lisinopril (lisinopril 20 mg Tab) By Mouth every day. magnesium oxide (magnesium oxide base 500 mg oral tablet) By Mouth once a day (at bedtime). metoprolol (metoprolol 25 mg ER Tab) By Mouth every day. multivitamin (Multi Vitamin+) polyethylene glycol 3350 with electrolytes (polyethylene glycol 3350 with electrolytes Oral Pwdr for Rosemary 4000 mL (NuLytely)) per physician's instructions prior to colonoscopy. Refills: 0. potassium chloride (potassium chloride 20 mEq ER Tab) By Mouth 2 times a day. predniSONE (predniSONE 2.5 mg oral tablet) By Mouth every day. predniSONE (predniSONE 20 mg Tab) By Mouth every day. PATIENT EDUCATION INFORMATION: Instructions: Follow up: DIAGNOSIS: 1:Upper GI bleed; 2:Blood loss anemia; 3:Crohn's disease, small and large intestine; 4:HTN (hypertension); 5:On deep vein thrombosis (DVT) prophylaxis; Anemia; Melena [facility] ED Note-Physicianon 06-20-19 ED Note-Physician Basic Information Time Seen: Aliyah Mcmahan PA-C 06/18/2022 17:51 Chief Complaint patient c/o dark tarry stools that started a few days ago. denies abdominal pain hx chrohns History of Present Illness Patient is a pleasant 62-year-old male with complicated medical history including HTN, steroid dependence, Crohn's (s/p partial colectomy, s/p small bowel resection - reports only has 15 feet of colon left) who presents to the ED for evaluation of dark tarry stools that began yesterday evening. Patient states that last week he had abdominal pain and what he thought was a Crohn's flare. He said he is comfortable managing this and increased his prednisone to 20 mg then tapered himself back down. He reports that his Crohn's flare resolved however yesterday he noticed dark tarry stool. He thought that it would go away and when it persisted today he came to the ED for further evaluation. Said he had his bimonthly lab work done at [place] yesterday which showed his hemoglobin to be 12.3. Patient endorses feeling lightheaded briefly while playing golf earlier today. This is since resolved. He is not currently dizzy nor lightheaded. He says he is unsure whether he was just hyper focused on his symptoms because his stool has been dark and tarry and he is worried he may have a GI bleed. He denies hemoptysis, hematemesis, epistaxis, gingival bleeding. He denies abdominal pain, diarrhea, chest pain, shortness of breath, fever or chills. Review of Systems A 10 point review of systems is negative except as noted above. Medical and Surgical History: Reviewed and noted Social history: Lives at home Substance use: Denies substance use Physical Exam Vitals & Measurements T: 36.6 ?C(Oral) HR: 100(Peripheral) RR: 18 BP: 146/90 SpO2: 98% HT: 197 cm WT: 92 kg BMI: 23.71 Appearance: Well-developed, nontoxic-appearing, alert and awake. Speaking in complete sentences. Calm. Cooperative. Vital signs reviewed, borderline tachycardic, hypertensive otherwise WNL Skin: Warm, dry, intact. Normal for age and ethnicity. Eyes: PERRL. Vision grossly intact Respiratory: LCTA b/l with normal bilateral excursion. No wheezes, rhonchi, rales. Cardiovascular: Hypertensive. RRR, no murmurs. 2+ symmetrical radial and dorsalis pedis pulses. Normal cap refill. No LE edema. Chest wall: Normal chest wall appearance and motion. Abdomen/GI: Multiple well-healed surgical scars. Soft, nontender, nondistended. No guarding, rigidity, rebound tenderness. NABS x4. : Normal rectal tone. Skin tag without evidence of hemorrhoids. Neuro: Alert and awake, speech Clear, cranial nerves grossly intact. No focal neurological deficit observed. Normal sensation to light touch in all 4 extremities. Normal gait. Extremities: No deformity noted on exam. Patient spontaneously moves all 4 extremities. Medical Decision Making Limitations to history: None Nursing Notes: Reviewed and utilized the nursing notes. MDM: Patient is a 62-year-old male presents to the ED for evaluation of dark tarry stools. On exam he is well-appearing, has normal cap refill, soft benign abdominal exam. He has history of Crohn's. Dark tarry stools DDx includes stomach or duodenal ulcer, upper GI bleed, esophagitis, gastritis. No history of alcoholism or esophageal varices. Dizziness and lightheadedness today could indicate symptomatic anemia. I reviewed patient's labs from yesterday which showed hemoglobin of 12.3. He is not anticoagulated. I personally reviewed CBC. Patient's hemoglobin dropped to 10.3 within the past 24 hours. His stool occult is positive. I discussed with patient that I think it would be orta to admit him for GI consult and possible EGD as well as repeat lab work and monitoring. He is supposed to go on a 5-week motor home trip tomorrow and if he were to continue to drop 2 points per day without finding source of bleeding is possibility that he would end up in an ER for a blood transfusion while on vacation. Spoke to hospitalist, Dr. Jalloh, about admitting patient. He would like me to obtain CT abdomen pelvis and speak with GI prior to excepting admission. I have ordered CTA abdomen pelvis for further evaluation of GI bleed and intra-abdominal pathology. CT imaging shows possible left hepatic cyst. Patient said that this is not a new finding. Also shows wall thickening of the small bowel. Patient tells me this is also not new. No overt source of upper GI bleed found on CT scan. I called Dr. Horn GI on-call and he advised me to initiate patient on IV Protonix, make him n.p.o. after midnight and he will scope him in the morning. I called Dr. Jalloh back to update him on GI recommendations and he has agreed to accept patient into his care. Social Determinants of Health Affecting Care: None RX Considerations: Chronic prednisone use Discussions with other providers: Attending Lian Appropriate for: Admission Assessment/Plan 1. Upper GI bleed (K92.2: Gastrointestinal hemorrhage, unspecified) 2. Melena (more content not included)... [facility] Comment on above: Result Comment: Elec tronically Signed By: Aliyah Mcmahan PA-C\.br\Date and Time Signed: 06/18/22 22:01 EDT\.br\Electronically Co-Signed By: Aliyah Mcmahan PA-C\.br\Date and Time Co-Signed: 06/18/22 22:16 EDT\.br\Electronically Co-Signed By: Rita Beal M.D.\.br\Date and Time Co-Signed: 06/19/22 09:42 EDT ED Patient Education Noteon 06-19-2022 ED Patient Education Note [facility] ED Patient Summaryon 023 ED Patient Summary (Inserted Image. Angeli ble to display) [place] [address] Patient Discharge Instructions Person Information Name: JOSÉ MIGUEL CARRENO Age: 62 Years Arrival Date: 06/18/2022 17:40:37 Discharge Diagnosis: 1:Upper GI bleed; 2:Blood loss anemia; 3:Crohn's disease, small and large intestine; 4:HTN (hypertension); 5:On deep vein thrombosis (DVT) prophylaxis; Anemia; Melena Primary Care Physician: DELMIS HORN DO Provider Information Primary Provider: Rita Beal M.D. [employer] Salesperson:Aliyah Mcmahan PA-C The exam and treatment you received in the Emergency Department were for an urgent problem and are not intended as complete care. It is important that you follow up with a doctor, nurse practitioner, or physician?s head start assistant teacher for ongoing care. If your symptoms become worse or you do not improve as expected and you are unable to reach your usual health care provider, you should return to the Emergency Department. We are available 24 hours a day. JOSÉ MIGUEL CARRENO has been given the following list of patient education materials, prescriptions and follow-up instructions: Follow-up Instructions: In the event that this physician does not participate in your insurance network, please consult with your insurance company to find a nearby participating provider. Patient Education Materials: A MESSAGE TO ALL PATIENTS REGARDING OPIOIDS PRESCRIPTION OPIOIDS: WHAT YOU NEED TO KNOW Prescription opioids can be used to help relieve omhliveq-ru-ewolwu pain and are often prescribed following a surgery or injury, or for certain health conditions. These medications can be an important part of the treatment but also come with serious risks. It is important to work with your healthcare provider to make sure you are getting the safest, most effective care. WHAT ARE THE RISKS AND SIDE EFFECTS OF OPIOID USE? Prescription opioids carry serious risks of addiction and overdose, especially with prolonged use. An opioid overdose, often marked by slowed breathing, can cause sudden . The use of prescription opioids can have a number of side effects as well, even when taken as directed: ? Tolerance?meaning you might need to take more of the medication for the same pain relief ? Physical dependence?meaning you have symptoms of withdrawal when a medication is stopped ? Increased sensitivity to pain ? Constipation ? Nausea, vomiting, and dry mouth ? Sleepiness and dizziness ? Confusion ? Depression ? Low levels of testosterone that can result in lower sex drive, energy, and strength ? Itching and sweating RISKS ARE GREATER WITH: ? History of drug misuse, substance use disorder, or overdose ? Mental health conditions (such as depression or anxiety) ? Sleep apnea ? Older age (65 years and older) ? Avoid alcohol while taking prescription opioids. Also, unless specifically advised by your health care provider, medications to avoid include: ? Benzodiazepines (such as Xanax or Valium) ? Muscle relaxants (such as Soma or Flexeril) ? Hypnotics (such as Ambien or Lunesta) ? Other prescription opioids KNOW YOUR OPTIONS Talk to your health care provider about ways to manage your pain that don?t involve prescription opioids. Some of these options may actually work better and have fewer risks and side effects. Options may include: ? Pain relievers such as acetaminophen, ibuprofen, and naproxen ? Some medication that are also used for depression or seizures ? Physical therapy and exercise ? Cognitive behavioral therapy, a psychological, goal-directed approach, in which patients learn how to modify physical, behavioral, and emotional triggers of pain and stress. IF YOU ARE PRESCRIBED OPIOIDS FOR PAIN: ? Never take opioids in greater amounts or more often than prescribed. ? Follow up with your primary health care provider. o Work together to create a plan on how to manage your pain. o Talk about ways to help manage your pain that don?t involve prescription opioids. o Talk about any and all concerns and side effects. ? Help prevent misuse and abuse o Never sell or share prescription opioids. o Never use another person?s prescription opioids. ? Store prescription opioids in a secure place and out of reach of others (this may include visitors, children, friends, and family). ? Safely dispose of unused prescription opioids: Find your community drug take-back program or your pharmacy mail-back program, or flush them down the toilet, following guidance from the Food and Drug Administration (www.fda.gov/Drugs/Resou rcesForYou). ? Visit www.cdc.gov/drugoverdose to learn about the risks of opioids abuse and overdose. ? If you believe you may be struggling with addiction, tell your health care consultant and ask for guidance or call [facility] National Helpline at 6-221-658-HELP. v Source: [employer] Department of [employer] (more content not included)... Normal [facility] 06-19-2022 Esophagogastroduodenosc opy Patient: JOSÉ MIGUEL CARRENO Age: 62 years Sex: Male : 1960 Associated Diagnoses: None Author: Lexx Horn MD Visit Information Procedures EGD and endoscopic hemostasis, indication 62-year-old male admitted with passing dark stools. Patient has history of Crohn's disease and had multiple bowel resection in the past. Procedure was done under monitored anesthesia care. Procedure and Olympus video gastroscope was inserted into the esophagus under direct visualization and advanced up to the fourth part of the duodenum. Esophageal mucosa is normal. No inflammation or ulcerations were seen. EG junction is about 40 cm from the entry. Stomach fundus body antrum and pylorus was examined. About 150 cc of coffee-ground fluid was aspirated from the stomach and gastric mucosa was irrigated. Mucosa at the mid body of the stomach over the lesser curvature showed areas of erosions with mild oozing of blood especially on irrigation. There were few scattered erosions seen in the distal body. No deep ulcerations were seen, the area with bruising of blood was treated with APC with coagulation of tissue, 30 W with a flow rate of 1.4 L/min was used. Duodenal bulb and postbulbar duodenum was examined that showed some dark fluid in the lumen no source of bleeding identified. No ulcerations were seen. Postop diagnosis GI bleeding secondary to gastric erosions status post ablation therapy with APC. Plan is continue Protonix would recommend adding Carafate. Chief Complaint 06/18/2022 17:44 EDT patient c/o dark tarry stools that started a few days ago. denies abdominal pain hx chrohns (Modified) Health Status Allergies: Allergic Reactions (All) Severity Not Documented AzaTHIOprine- Joint pain. Tylenol- Fever., Allergies (2) Active Reaction azaTHIOprine Joint pain Tylenol Fever Current medications: (Selected) Inpatient Medications Ordered Ambien 5 mg Tab: 5 mg = 1 tab(s), Tab, Oral, Once a day (at bedtime) PRN Sleep, Routine, Start date 06/18/22 23:31:00 EDT, 06/18/22 23:31:00 EDT Benadryl 25 mg Cap: 25 mg = 1 cap(s), Cap, Oral, q6hr PRN Itching, Routine, Start date 06/18/22 23:33:00 EDT, 06/18/22 23:33:00 EDT HYDROmorphone 1 mg/mL injectable solution: 0.2 mg = 0.2 mL, Injection, IV Push, q2min PRN Pain for 10 dose(s), Stop date Limited # of times, Routine, Start date 06/19/22 11:42:00 EDT, 06/19/22 11:42:00 EDT Lactated Ringers IV Rosemary 1000 mL 1,000 mL: 1,000 mL, IV, 100 mL/hr, Routine, Start date 06/19/22 11:42:00 EDT, 10 hour(s), Total volume (mL): 1,000, 92 kg, 2.24, m2 NS 1000 mL Soln-IV 1,000 mL: 1,000 mL, IV, 75 mL/hr, Routine, Start date 06/18/22 23:33:00 EDT, 13.3 hour(s), Total volume (mL): 1,000, 92 kg, 2.24, m2 Phenergan 25 mg/mL Injection: 12.5 mg = 0.5 mL, Injection, IV Push, q6hr PRN Nausea, Routine, Start date 06/18/22 23:33:00 EDT, 06/18/22 23:33:00 EDT Sodium Chloride 0.9% IV Rosemary 1000 mL 1,000 mL: 1,000 mL, IV, 125 mL/hr, STAT, Start date 06/18/22 21:59:00 EDT, 8 hour(s), Total volume (mL): 1,000, 92 kg, 2.24, m2 Zofran 4 mg/2 mL Injection: 4 mg = 2 mL, Injection, IV Push, q6hr PRN Nausea, Routine, Start date 06/18/22 23:33:00 EDT, 06/18/22 23:33:00 EDT hydrALAZINE 20 mg/mL Inj: 10 mg = 0.5 mL, Injection, IV Push, q6hr PRN Other (see comment), Routine, Start date 06/18/22 23:33:00 EDT, 06/18/22 23:33:00 EDT pantoprazole 40 mg IV Inj: 40 mg = 10 mL, Injection, IV Push, BID, Routine, Start date 06/19/22 9:00:00 EDT, mL/hr, Infuse over 2 minute(s) Prescriptions Prescribed polyethylene glycol 3350 with electrolytes Oral Pwdr for Rosemary 4000 mL (NuLytely): See Instructions, 1 EA, Refill(s) 0, per physician's instructions prior to colonoscopy, [id number], 197, cm, 10/06/21 9:20:00 EDT, Height/Length Dosing, 93, kg, 10/06/21 9:20:00 EDT, Weight Dosing Documented Medications Documented Multi Vitamin+: Daily, Refill(s) 0 Skyrizi: See Instructions, q4wk, Refills(s) 0 Vitamin B-12 1000 mcg/mL injectable solution: IntraMuscular, qMonth, Refills(s) 0 Vitamin D3 1000 intl units oral capsule: mcg cap(s), Oral, Daily, Refills(s) 0 amLODIPine 5 mg Tab: Oral, Daily, Refills(s) 0 budesonide: 6 mg, Oral, qAM, Refills(s) 0 lisinopril 20 mg Tab: mg tab(s), Oral, Daily, Refills(s) 0 magnesium oxide base 500 mg oral tablet: mg, tab(s), Oral, Daily, Refill(s) 0 metoprolol 25 mg ER Tab: 12.5 mg = 0.5 tab(s), Oral, Daily, Refills(s) 0 potassium chloride 20 mEq ER Tab: 40 mEq = 2 tab(s), Oral, Daily, Refills(s) 0 predniSONE: 10 mg, Oral, Daily, Refills(s) 0, Home Medications (12) Active amLODIPine 5 mg Tab , Oral, Daily budesonide 6 mg, Oral, qAM lisinopril 20 mg Tab , Oral, Daily magnesium oxide base 500 mg oral tablet , Oral, Daily metoprolol 25 mg ER Tab 12.5 mg = 0.5 tab(s), Oral, Daily Multi Vitamin+ , Daily polyethylene glycol 3350 with electrolytes Oral Pwdr for Rosemary 4000 mL (NuLytely) See Instructions potassium chloride 20 mEq ER Tab 40 mEq = 2 tab(s), Oral, Daily predniSONE 10 mg, Oral, Avel (more content not included)... [facility] Esophagogastroduodenosc opy Patient: JOSÉ MIGUEL CARRENO Age: 62 years Sex: Male : 1960 Associated Diagnoses: None Author: Lexx Horn MD Chief Complaint 06/18/2022 17:44 EDT patient c/o dark tarry stools that started a few days ago. denies abdominal pain hx chrohns (Modified) 62-year-old male comes with passing dark stools, symptoms started few days ago. No nausea no vomiting has some vague upper abdominal discomfort, no prior history of ulcer disease, patient has history of Crohn's disease and had bowel resection multiple times in the past and has been on prednisone, budesonide and is also on Skyrizi, he is being [facility] at [facility] . Does not take aspirin or NSAIDs. This morning patient had dark stool but it was more formed, it seems patient had involvement of the small bowel and colon. He does not smoke Review of Systems Gastrointestinal: Melena. Health Status Allergies: Allergic Reactions (All) Severity Not Documented AzaTHIOprine- Joint pain. Tylenol- Fever., Allergies (2) Active Reaction azaTHIOprine Joint pain Tylenol Fever Current medications: (Selected) Inpatient Medications Ordered Ambien 5 mg Tab: 5 mg = 1 tab(s), Tab, Oral, Once a day (at bedtime) PRN Sleep, Routine, Start date 06/18/22 23:31:00 EDT, 06/18/22 23:31:00 EDT Benadryl 25 mg Cap: 25 mg = 1 cap(s), Cap, Oral, q6hr PRN Itching, Routine, Start date 06/18/22 23:33:00 EDT, 06/18/22 23:33:00 EDT NS 1000 mL Soln-IV 1,000 mL: 1,000 mL, IV, 75 mL/hr, Routine, Start date 06/18/22 23:33:00 EDT, 13.3 hour(s), Total volume (mL): 1,000, 92 kg, 2.24, m2 Phenergan 25 mg/mL Injection: 12.5 mg = 0.5 mL, Injection, IV Push, q6hr PRN Nausea, Routine, Start date 06/18/22 23:33:00 EDT, 06/18/22 23:33:00 EDT Sodium Chloride 0.9% IV Rosemary 1000 mL 1,000 mL: 1,000 mL, IV, 125 mL/hr, STAT, Start date 06/18/22 21:59:00 EDT, 8 hour(s), Total volume (mL): 1,000, 92 kg, 2.24, m2 Zofran 4 mg/2 mL Injection: 4 mg = 2 mL, Injection, IV Push, q6hr PRN Nausea, Routine, Start date 06/18/22 23:33:00 EDT, 06/18/22 23:33:00 EDT hydrALAZINE 20 mg/mL Inj: 10 mg = 0.5 mL, Injection, IV Push, q6hr PRN Other (see comment), Routine, Start date 06/18/22 23:33:00 EDT, 06/18/22 23:33:00 EDT pantoprazole 40 mg IV Inj: 40 mg = 10 mL, Injection, IV Push, BID, Routine, Start date 06/19/22 9:00:00 EDT, mL/hr, Infuse over 2 minute(s) Prescriptions Prescribed polyethylene glycol 3350 with electrolytes Oral Pwdr for Rosemary 4000 mL (NuLytely): See Instructions, 1 EA, Refill(s) 0, per physician's instructions prior to colonoscopy, [facility] #[id number], 197, cm, 10/06/21 9:20:00 EDT, Height/Length Dosing, 93, kg, 10/06/21 9:20:00 EDT, Weight Dosing Documented Medications Documented Multi Vitamin+: Daily, Refill(s) 0 Skyrizi: See Instructions, q4wk, Refills(s) 0 Vitamin B-12 1000 mcg/mL injectable solution: IntraMuscular, qMonth, Refills(s) 0 Vitamin D3 1000 intl units oral capsule: mcg cap(s), Oral, Daily, Refills(s) 0 amLODIPine 5 mg Tab: Oral, Daily, Refills(s) 0 budesonide: 6 mg, Oral, qAM, Refills(s) 0 lisinopril 20 mg Tab: mg tab(s), Oral, Daily, Refills(s) 0 magnesium oxide base 500 mg oral tablet: mg, tab(s), Oral, Daily, Refill(s) 0 metoprolol 25 mg ER Tab: 12.5 mg = 0.5 tab(s), Oral, Daily, Refills(s) 0 potassium chloride 20 mEq ER Tab: 40 mEq = 2 tab(s), Oral, Daily, Refills(s) 0 predniSONE: 10 mg, Oral, Daily, Refills(s) 0, Home Medications (12) Active amLODIPine 5 mg Tab , Oral, Daily budesonide 6 mg, Oral, qAM lisinopril 20 mg Tab , Oral, Daily magnesium oxide base 500 mg oral tablet , Oral, Daily metoprolol 25 mg ER Tab 12.5 mg = 0.5 tab(s), Oral, Daily Multi Vitamin+ , Daily polyethylene glycol 3350 with electrolytes Oral Pwdr for Rosemary 4000 mL (NuLytely) See Instructions potassium chloride 20 mEq ER Tab 40 mEq = 2 tab(s), Oral, Daily predniSONE 10 mg, Oral, Daily Skyrizi See Instructions Vitamin B-12 1000 mcg/mL injectable solution , IntraMuscular, qMonth Vitamin D3 1000 intl units oral capsule , Oral, Daily , Medications (8) Active Scheduled: (1) pantoprazole 40 mg IV Inj [F] 40 mg 10 mL, IV Push, BID Continuous: (2) Sodium Chloride 0.9% 1,000 mL 1,000 mL, IV, 125 mL/hr Sodium Chloride 0.9% 1,000 mL 1,000 mL, IV, 75 mL/hr PRN: (5) diphenhydrAMINE 25 mg Cap [F] 25 mg 1 cap(s), Oral, q6hr hydrALAZINE 20 mg/mL Inj [F] 10 mg 0.5 mL, IV Push, q6hr ondansetron 2 mg/mL Inj [F] 4 mg 2 mL, IV Push, q6hr promethazine 25 mg/mL Inj [F] 12.5 mg 0.5 mL, IV Push, q6hr zolpidem 5 mg Tab [F] 5 mg 1 tab(s), Oral, Once a day (at bedtime) Problem list: All Problems Crohn's disease / SNOMED CT 37358858 / Confirmed Crohn's disease, small and large intestine / SNOMED CT 854438878 / Confirmed HTN (hypertension) / SNOMED CT 1171997596 / Confirmed Hypokalemia / SNOMED CT 77533206 / Confirmed Low serum potassium level / SNOMED CT 6574943491 / Confirmed S/P partial colectomy / SNOMED CT 0497278479 / Confirmed S/P small bowel resection / SNOMED (more content not included)... Normal [facility] HEMATOLOGYOrdered By: SYSTEM SYSTEM on 06-19-2022 Basophils/100 WBC (Bld) 0.8 % Normal 0.0 - 2.0 % [facility] Basophils/Leukocytes Auto (Bld) [Pure # fraction] 0.1 E9/L Normal 0.0 - 0.2 E9/L [facility] Eosinophils/100 WBC (Bld) 0.5 % Normal 0.0 - 8.0 % [facility] Eosinophils/Leukocytes Auto (Bld) [Pure # fraction] 0.1 E9/L Normal 0.0 - 0.5 E9/L [facility] Lymphocytes/100 WBC (Bld) 10.7 % Low 14.0 - 50.0 % [facility] Lymphocytes/Leukocytes Auto (Bld) [Pure # fraction] 1.8 E9/L Normal 1.0 - 4.0 E9/L [facility] Monocytes/100 WBC (Bld) 5.3 % Normal 4.0 - 14.0 % [facility] Monocytes/Leukocytes Auto (Bld) [Pure # fraction] 0.9 E9/L Normal 0.2 - 1.0 E9/L [facility] Neutrophils/100 WBC (Bld) 82.7 % High 36.0 - 75.0 % [facility] Neutrophils/Leukocytes Auto (Bld) [Pure # fraction] 14.0 E9/L High 2.0 - 7.5 E9/L [facility] HEMATOLOGYOrdered By: Leonel Ruelas on 06-19-2022 Erythrocyte distribution width (RBC) [Ratio] 15.4 % High 10.9 - 14.2 % [facility] Hematocrit (Bld) [Volume fraction] 28.3 % Low 37.7 - 49.0 % [facility] MCH (RBC) [Entitic mass] 26.9 pg Low 27.0 - 34.0 pg [facility] MCHC (RBC) [Mass/Vol] 32.6 g/dL Normal 31.4 - 36.0 gm/dL [facility] MCV (RBC) [Entitic vol] 82.5 fL Normal 80.0 - 100.0 fL [facility] Platelet mean volume (Bld) [Entitic vol] 8.2 fL Normal 6.4 - 10.8 fL [facility] Platelets (Bld) [#/Vol] 367.0 E9/L Normal 150. 0 - 500.0 E9/L [facility] RBC (Bld) [#/Vol] 3.4 E12/L Low 4.3 - 5.9 E12/L [facility] WBC corrected for nucl RBC Auto (Bld) [#/Vol] 16.9 E9/L High 4.0 - 11.0 E9/L [facility] Comment on above: Result Comment: Slid e reviewed by AD. HEMATOLOGYOrdered By: Nakia Parra on 06-19-2022 Erythrocyte distribution width (RBC) [Ratio] 15.4 % High 10.9 - 14.2 % [facility] Hematocrit (Bld) [Volume fraction] 28.3 % Low 37.7 - 49.0 % [facility] Hemoglobin (Bld) [Mass/Vol] 9.5 g/dL Low 13.5 - 17.5 gm/dL [facility] MCH (RBC) [Entitic mass] 27.8 pg Normal 27.0 - 34.0 pg [facility] MCHC (RBC) [Mass/Vol] 33.5 g/dL Normal 31.4 - 36.0 gm/dL [facility] MCV (RBC) [Entitic vol] 83.0 fL Normal 80.0 - 100.0 fL [facility] Platelet mean volume (Bld) [Entitic vol] 8.4 fL Normal 6.4 - 10.8 fL [facility] Platelets (Bld) [#/Vol] 234.0 E9/L Normal 150. 0 - 500.0 E9/L [facility] RBC (Bld) [#/Vol] 3.4 E12/L Low 4.3 - 5.9 E12/L [facility] WBC corrected for nucl RBC Auto (Bld) [#/Vol] 9.0 E9/L Normal 4.0 - 11.0 E9/L [facility] Main OR PACU I Recordon Main OR PACU I Record PACU Phase I Docum ent Type FT Summary Primary Physician: Lexx Horn MD Finalized Date/Time: 06/19/22 12:42:17 Pt. Name: JOSÉ MIGUEL CARRENO/Sex: 1960 Male Med Rec #: [id number] Physician: Betty CHACON DO Financial #: [id number] Pt. Type: O Room/Bed: [facility]/01 Admit/Disch: 06/18/22 17:40:37 - Institution: Case Times PACU I FT Pre-Care Text: Identifies barriers to communication and implements measures to provide psychological support Develops individualized plan of care, and ensures continuity of care Maintains patient's dignity and privacy, and maintains patient confidentiality Identifies and reports philosophical, cultural, and spiritual beliefs and values Identifies individual values and wishes concerning care Implements aseptic technique, and administers prescribed antibiotic therapy and immunizing agents as ordered Evaluates postoperative tissue perfusion Implements thermoregulation measures, and monitors body temperature Evaluates postoperative respiratory status Evaluates postoperative cardiac status Evaluates postoperative neurological status Assesses pain control, collaborated in initiating patient-controlled analgesia and implements alternative methods of pain control Verifies allergies, administers prescribed medications and solutions, evaluates response to medications Entry 1 In PACU I 06/19/22 11:58:00 Discharge from PACU 06/19/22 12:28:00 I Outcomes Met? Yes Last Modified By: Ling Yost RN 06/19/22 12:41:57 Post-Care Text: The patient demonstrates knowledge of the expected response to the operative or invasive procedure The patient's care is consistent with the individualized perioperative plan of care The patient's right to privacy is maintained The patient's value system, lifestyle, ethnicity, and culture are considered, respected, and incorporated into the perioperative plan of care The patient participates in decisions affecting his or her perioperative plan of care The patient is free from signs and symptoms of infection The patient has wound/tissue perfusion consistent with or improved from baseline levels established preoperatively The patient is at or returning to normothermia at the conclusion of the immediate postoperative period The patient's respiratory function is consistent with or improved from baseline levels established preoperatively The patient's cardiovascular status is consistent with or improved from baseline levels established preoperatively The patient's cardiovascular status is consistent with or improved from baseline levels established preoperatively The patient demonstrates and/or reports adequate pain control throughout the perioperative period The patient received appropriate medication(s), safely administered during the perioperative period Acuity Level PACU I FT Entry 1 Start Time 06/19/22 11:58:00 Stop Time 06/19/22 12:28:00 Acuity Level Acuity Level I Last Modified By: Ling Yost RN 06/19/22 12:42:12 Finalized By: Ling Yost RN Document Signatures Signed By: Ling Yost RN 06/19/22 12:42 Normal [facility] Main OR Preoperative Recordo n 06-19-2022 Main OR Preoperative Record Holding Area Document Type FT Summary Primary Physician: Lexx Horn MD Finalized Date/Time: 06/19/22 12:23:20 Pt. Name: JOSÉ MIGUEL ACRRENO /Sex: 1960 Male Med Rec #: [id number] Physician: Betty CHACON DO Financial #: [id number] Pt. Type: O Room/Bed: [facility]/ Admit/Disch: 06/18/22 17:40:37 - Institution: Case Times Holding FT Pre-Care Text: Verifies consent for planned procedure, identifies individual values and wishes concerning care, includes family members in perioperative teaching Secures patient's records' belongings, and valuables, maintains patient's dignity and privacy, and maintains patient confidentiality Entry 1 In Holding 06/19/22 11:05:00 Outcomes Met? Yes Last Modified By: Nakia Ballard RN 06/19/22 11:13:13 Post-Care Text: The patient participates in decisions affecting his or her perioperative plan of care The patient's right to privacy is maintained Surgery Checklist FT Entry 1 Patient Birthday, ID Band Procedure History and Physical, Identification: Check, Patient Verification: Surgical Consent, With Participation Patient NPO after Midnight: Yes Date/Time: 06/19/22 00:00:00 Personal Items: Defibrilator, Jewelry, Personal Items necklace, ring x1 Pacemaker Comment: Limitations: none Complaints of Pain: Yes Pain Comment: 05/20 mid abdominal pain Operative Site n/a Marking: Availability Equipment Verified: Does Patient Smoke No Patient states Yes Comment - Adult postop adult Supervision supervision available Case Cancelled in No Holding Area see comments below for reason Last Modified By: Nakia Ballard RN 06/19/22 11:19:15 Finalized By: Nakia Ballard RN Document Signatures Signed By: Nakia Ballard RN 06/19/22 11:24 Nakia Ballard RN 06/19/22 12:22 Workman RN, Nakia 06/19/22 12:23 Workman RN, Nakia 06/19/22 11:19 Workman RN, Nakia 06/19/22 12:23 Normal [facility] Monitor Recordon 06-19-2022 Monitor Record [id number]#[id number] :127 Normal [facility] Monitor Record [id number] :127 Normal [facility] Monitor Record [id number] :127 Normal [facility] Monitor Record [id number]#[id number] :127 Normal [facility] Patient Education - Texton 0 06-19-2022 Patient Education - Text Gastroenterology Upper Gastrointestinal Bleeding Upper gastrointestinal (GI) bleeding is bleeding from the swallowing tube (esophagus), stomach, or the first part of the small intestine (duodenum). If you have upper GI bleeding, you may vomit blood or have bloody or black stools. Bleeding can range from mild to serious or even life-threatening. If there is a lot of bleeding, you may need to stay in the hospital. What are the causes? This condition may be caused by: ? Ulcer disease of the stomach (peptic ulcer) or duodenum. This is the most common cause of GI bleeding. ? Inflammation, irritation, or swelling of the esophagus (esophagitis). ? A tear in the esophagus. ? Cancer of the esophagus, stomach, or duodenum. ? An abnormal or weakened blood vessel in one of the upper GI structures. ? A bleeding disorder that impairs the formation of blood clots and causes easy bleeding (coagulopathy). What increases the risk? The following factors may make you more likely to develop this condition: ? Being older than 60 years of age. ? Being male. ? Having another long-term disease, especially liver or kidney disease. ? Having a stomach infection caused by Helicobacter pylori bacteria. ? Having frequent or severe vomiting. ? Abusing alcohol. ? Taking certain medicines for a long time, such as: ? NSAIDs. ? Anticoagulants. What are the signs or symptoms? Symptoms of this condition include: ? Vomiting blood. ? Black or maroon-colored stools. ? Bloody stools. ? Weakness or dizziness. ? Heartburn. ? Abdominal pain. ? Difficulty swallowing. ? Weight loss. ? Yellow eyes or skin (jaundice). ? Racing heartbeat. How is this diagnosed? This condition may be diagnosed based on: ? Your symptoms and medical history. ? A physical exam. During the exam, your health care provider will check for signs of blood loss, such as low blood pressure and a rapid pulse. ? Tests, such as: ? Blood tests to measure your blood cell count and to check for other signs of blood loss and clotting ability. ? Blood tests to check your liver and kidney function. ? A chest X-ray to look for a tear in the esophagus. ? Endoscopy. In this procedure, a flexible scope is put down your esophagus and into your stomach or duodenum to look for the source of bleeding. ? Angiogram. This may be done if the source of bleeding is not found during endoscopy. For an angiogram, X-rays are taken after a dye is injected into your bloodstream. ? Nasogastric tube insertion. This is a tube passed through your nose and down into your stomach. It may be connected to a source of gentle suction to see if any blood comes out. How is this treated? Treatment for this condition depends on the cause of the bleeding. Active bleeding is treated at the hospital. Treatment may include: ? Getting fluids through an IV tube inserted into one of your veins. ? Getting blood through an IV tube (blood transfusion). ? Getting high doses of medicine through the IV to lower stomach acid. This may be done to treat ulcer disease. ? Having endoscopy to treat an area of bleeding with high heat (coagulation), injections, or surgical clips. ? Having a procedure that involves first doing an angiogram and then blocking blood flow to the bleeding site (embolization). ? Stopping or changing some of your regular medicines for a certain amount of time. ? Having other surgical procedures if initial treatments do not control bleeding. Follow these instructions at home: ? Take [id number] and prescription medicines only as told by your health care provider. You may need to avoid NSAIDs or other medicines that increase bleeding. ? Do not drink alcohol. ? Drink enough fluid to keep your urine clear or pale yellow. ? Follow instructions from your health care provider about eating or drinking restrictions. ? Return to your normal activities as told by your health care provider. Ask your health care provider what activities are safe for you. ? Do not use any tobacco products, such as cigarettes, chewing tobacco, and e-cigarettes. If you need help quitting, ask your health care provider. ? Keep all follow-up visits as told by your health care provider. This is important. Contact a health care provider if: ? You have abdominal pain or heartburn. ? You have unexplained weight loss. ? You have trouble swallowing. ? You have frequent vomiting. ? You develop jaundice. ? You feel weak or dizzy. ? You need help to stop smoking or drinking alcohol. Get help right away if: ? You have vomiting with blood. ? You have blood in your stools. ? You have severe cramps in your back or abdomen. ? Your symptoms of upper GI bleeding come back after treatment. This information is not intended to replace advice given to you by your health care provider. Make sure you discuss any questions you have with your health care provider. Document Released: (more content not included)... Normal [facility] Progress Note-Physicianon Progress Note-Physician Basic Informatio n Patient is a 62-year-old male with past medical history as noted below comes in with above-stated chief complaint. Patient states that he noticed melanotic stools over the past 48 hours. IMP 1. Upper GI bleed (K92.2: Gastrointestinal hemorrhage, unspecified) Seen dn examined Clinically stable No abdominal pain Tarry black stool H/H 9.5/28.3 Protonix IV BID GI was consulted Plan for EGD 2. 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 Crohn's disease, small and large intestine (K50.80: Crohn's disease of both small and large intestine without complications) GI was consulted 4. HTN (hypertension) (I10: Essential (primary) hypertension) Hydralazine iv prn. see orders. 5. On deep vein thrombosis (DVT) prophylaxis (Z79.899: Other fci (current) drug therapy) SCD only. No heparin based products because of GI bleed Orders: Subjective Doing ok No abdominal pain Black tarry stool Review of Systems Constitutional: no fever, no chills, no sweats, no weakness Respiratory: no shortness of breath, no cough, no orthopnea, no wheezing Cardiovascular: no chest pain, no palpitations, no edema Additional ROS info: Except as noted in the above Review of Systems and in the History of Present Illness all other systems have been reviewed and are negative or noncontributory. Objective Vitals & Measurements T: 36.8 ?C(Oral) TMIN: 36.5 ?C(Oral) TMAX: 36.8 ?C(Oral) HR: 83(Monitored) RR: 16 BP: 145/81 SpO2: 99% HT: 193 cm WT: 92 kg Intake & Output This visit (24 hour periods starting at 07:00 EDT) 06/19/22 * 06/18/22 06/17/22 Total Summary Intake mL 10 10 -- Output mL -- -- -- Fluid Balance 10 10 -- Intake (1) pantoprazole mL 10 10 -- Total 10 10 -- Output (0) Counts (0) * This column has not completed the indicated time period. Physical Exam General: alert, no acute distress Skin: warm, dry Head: no trauma, normocephalic Neck: Trachea midline, no adenopathy, no tenderness Eye: normal conjunctiva, sclera clear ENMT: TM's clear, oral mucosa moist, no pharyngeal erythema or exudate Cardiovascular: regular rate and rhythm, normal peripheral perfusion Respiratory: Lungs CTA, respirations non labored Chest wall: no deformity. Gastrointestinal: soft, non distended, no tenderness, no guarding. Back: No tenderness, Normal ROM, Normal alignment. Extremities: no deformity, no trauma Neurological: oriented x 4, LOC appropriate for age, CN II-XII intact, motor strength equal & normal bilaterally, sensation equal & normal bilaterally, speech normal Psychiatric: cooperative, affect appropriate for age, normal judgement, normal psychiatric thoughts. Lab Results WBC: 9 E9/L (06/19/22 05:56:00) RBC: 3.4 E12/L Low (06/19/22 05:56:00) HGB: 9.5 gm/dL Low (06/19/22 05:56:00) Hct: 28.3 % Low (06/19/22 05:56:00) MCV: 83 fL (06/19/22 05:56:00) MCH: 27.8 pg (06/19/22 05:56:00) MCHC: 33.5 gm/dL (06/19/22 05:56:00) RDW: 15.4 % High (06/19/22 05:56:00) Platelet: 234 E9/L (06/19/22 05:56:00) MPV: 8.4 fL (06/19/22 05:56:00) Neutro Auto: 81.6 % High (06/18/22 18:35:00) Lymph Auto: 9.2 % Low (06/18/22 18:35:00) [place] Auto: 8.1 % (06/18/22 18:35:00) Eos Auto: 0.5 % (06/18/22 18:35:00) Basophil Auto: 0.6 % (06/18/22 18:35:00) Neutro Absolute: 10.4 E9/L High (06/18/22 18:35:00) Lymph Absolute: 1.2 E9/L (06/18/22 18:35:00) [place] Absolute: 1 E9/L (06/18/22 18:35:00) Eos Absolute: 0.1 E9/L (06/18/22 18:35:00) Basophil Absolute: 0.1 E9/L (06/18/22 18:35:00) Glucose Lvl: 92 mg/dL (06/18/22 18:35:00) BUN: 20 mg/dL (06/18/22 18:35:00) Creatinine: 1.2 mg/dL (06/18/22 18:35:00) eGFR: >60 (06/18/22 18:35:00) eGFR AA: >60 (06/18/22 18:35:00) BUN/Creat Ratio: 17 (06/18/22 18:35:00) Sodium Lvl: 137 mmol/L (06/18/22 18:35:00) Potassium Lvl: 4.2 mmol/L (06/18/22 18:35:00) Chloride: 107 mmol/L (06/18/22 18:35:00) CO2: 26 mmol/L (06/18/22 18:35:00) AGAP: 8 mEq/L (06/18/22 18:35:00) Calcium Lvl: 8.5 mg/dL Low (06/18/22 18:35:00) Occult Bld Stl: Positive1 Abnormal (06/18/22 19:02:00) ABO/Rh: O NEG (06/19/22 05:56:00) ABO/Rh Retype Interp: O NEG (06/18/22 18:35:00) ABSC Gel Interp: Negative (06/19/22 05:56:00) Images General: alert, no acute distress Skin: warm, dry Head: no trauma, normocephalic Neck: Trachea midline, no adenopathy, no tenderness Eye: normal conjunctiva, sclera clear ENMT: oral mucosa moist, no pharyngeal erythema or exudate. hearing grossly intact Cardiovascular: regular rate and rhythm, no murmur/gallop/rub Respiratory: Lungs CTA, respirations non labored , no w/r/r Gastrointestinal: Positive bowel sound, soft, non distended, no tenderness, no guarding. Extremities: no deformity, no trauma Osteopathic: Deferred due to being noncontributory to current case. Neurological: oriented x 4, LOC appropriate for age, CN II-XII intact, motor stre (more content not included)... Normal [facility] Comment on above: Result Comment: Elec tronically Signed By: LUL MALLOY, Jose\.br\Date and Time Signed: 06/19/22 10:07 EDT Auto Diffon 06-18-2022 Basophils/100 WBC (Bld) 0.6 % Normal 0.0-2.[address] [facility] Comment on above: Order Comment: Order Added by Discern Expert. Performed By: #### 2 [id number], [id number], [id number], [id number], 6422526, 7994778, [id number] #### [facility] [address] [place] [address] Basophils/Leukocytes Auto (Bld) [Pure # fraction] 0.1 E9/L Normal 0.0-0.2 [facility] Comment on above: Order Comment: Order Added by Discern Expert. Performed By: #### 2 005143, [id number], [id number], [id number], 8899450, 3656370, [id number] #### [facility] [address] [place] [address] Eosinophils/100 WBC (Bld) 0.5 % Normal 0.0-8.0 [facility] Comment on above: Order Comment: Order Added by Discern Expert. Performed By: #### 2 324106, 4566192, [id number], 58431482, 9952591, 2099838, [id number] #### [facility] [address] [place] [address] Eosinophils/Leukocytes Auto (Bld) [Pure # fraction] 0.1 E9/L Normal 0.0-0.5 [facility] Comment on above: Order Comment: Order Added by Discern Expert. Performed By: #### 2 659124, 3930237, 76574459, 03311883, 9812565, 2194191, [id number] #### [facility] [address] [place] [address] Lymphocytes/100 WBC (Bld) 9.2 % Low 14.0-50.0 [facility] Comment on above: Order Comment: Order Added by Discern Expert. Performed By: #### 2 311188, 0494277, 55621490, 94593008, 7971255, 5396921, [id number] #### [facility] [address] [place] [address] Lymphocytes/Leukocytes Auto (Bld) [Pure # fraction] 1.2 E9/L Normal 1.0-4.0 [facility] Comment on above: Order Comment: Order Added by Discern Expert. Performed By: #### 2 952709, 7395044, 99166164, 79759077, 3203466, 9023232, [id number] #### [facility] [address] [place] [address] Monocytes/100 WBC (Bld) 8.1 % Normal 4.0-14.0 [facility] Comment on above: Order Comment: Order Added by Discern Expert. Performed By: #### 2 259326, 2171776, 21822533, 44702240, 6658048, 8911720, 09876119 #### [facility] [address] [place] [address] Monocytes/Leukocytes Auto (Bld) [Pure # fraction] 1.0 E9/L Normal 0.2-1.0 [facility] Comment on above: Order Comment: Order Added by Discern Expert. Performed By: #### 2 780895, 7556845, 51324088, 62626744, 2853573, 2651734, 21396693 #### [facility] [address] [place] [address] Neutrophils/100 WBC (Bld) 81.6 % High 36.0-75.0 [facility] Comment on above: Order Comment: Order Added by Discern Expert. Performed By: #### 2 297216, 6883522, 51285663, 58661273, 3488531, 3347039, 76745257 #### [facility] [address] [place] [address] Neutrophils/Leukocytes Auto (Bld) [Pure # fraction] 10.4 E9/L High 2.0-7.5 [facility] Comment on above: Order Comment: Order Added by Discern Expert. Performed By: #### 2 115912, 4892788, 48069547, 50468886, 1796892, 3198071, [id number] #### [facility] [address] [place] [address] BLOOD BANKOrdered By: Nakia Parra on 06-18-2022 ABO/Rh Retype Interp Negative Invalid Interpretation Code [facility] BB Subsection BMPon 06-18-2022 Creatinine [Mass/Vol] 1.2 mg/dL Normal 0.5-1.3 [facility] Comment on above: Performed By: #### 2 311658, 0605178, 60067823, 04793898, 7246736, 0560278, [id number] #### [facility] [address] [place] [address] Urea nitrogen [Mass/Vol] 20 mg/dL Normal 5-21 [facility] Comment on above: Performed By: #### 2 719902, 3399923, 46897132, 71412419, 9298559, 2406306, 53757323 #### [facility] [address] [place] [address] Urea nitrogen/Creatinine [Mass ratio] 17 No Units Normal 10-20 [facility] Comment on above: Performed By: #### 2 407900, 3207025, 82292463, 07739944, 1754157, 2521951, [id number] #### [facility] [address] [place] [address] Anion gap [Moles/Vol] 8 mmol/L Normal 6-16 [facility] Comment on above: Performed By: #### 2 366901, 3397467, 84433970, 54100377, 6280615, 9672963, 93050817 #### [facility] [facility] [address] [place] [address] Calcium [Mass/Vol] 8.5 mg/dL Low 8.9-11.1 [facility] Comment on above: Performed By: #### 2 531724, 6251080, 73247988, 32185408, 9088644, 5147110, [id number] #### [facility] [address] [place] [address] Chloride [Moles/Vol] 107 mmol/L Normal 101-111 [facility] Comment on above: Performed By: #### 2 099333, 9834462, 14233307, 42368894, 0828233, 2748651, 04098240 #### [facility] [address] [place] [address] CO2 [Moles/Vol] 26 mmol/L Normal 21-31 [facility] Comment on above: Performed By: #### 2 010857, 4035815, 50676656, 71199689, 5613385, 6853441, 80109247 #### [facility] [address] [place] [address] Glucose [Mass/Vol] 92 mg/dL Normal 55-199 [facility] Comment on above: Result Comment: If t his glucose result represents a fasting glucose, interpretation should refer to the following reference range: 55-99 mg/dL Performed By: #### 2 789369, 8610306, 16645317, 15502818, 0678300, 1215380, 90999722 #### [facility] [address] [place] [address] Potassium [Moles/Vol] 4.2 mmol/L Normal 3.5-5.3 [facility] Comment on above: Performed By: #### 2 976004, 7668492, 46917439, 65941565, 5715611, 5179479, 32241437 #### [facility] [address] [place] [address] Sodium [Moles/Vol] 137 mmol/L Normal 135-145 [facility] Comment on above: Performed By: #### 2 807879, 8076924, 09293807, 90222592, 3648213, 5965874, 00449751 #### [facility] [address] [place] [address] CBC w/ Auto Diffon 3 Erythrocyte distribution width (RBC) [Ratio] 15.7 % High 10.9-14.2 [facility] Comment on above: Performed By: #### 2 419949, 6862677, 10230710, 36616273, 7806703, 2690749, 61797602 #### [facility] [address] [place] [address] Hematocrit (Bld) [Volume fraction] 31.6 % Low 37.7-49.0 [facility] Comment on above: Performed By: #### 2 411319, 0050605, 86315284, 33415110, 6049745, 5358368, 36249933 #### [facility] [address] [place] [address] Hemoglobin (Bld) [Mass/Vol] 10.3 g/dL Low 13.5-17.5 [facility] Comment on above: Performed By: #### 2 069318, 3123292, 35266336, 85397644, 1573760, 5380792, 60237000 #### [facility] [address] [place] [address] MCH (RBC) [Entitic mass] 26.9 pg Low 27.0-34.0 [facility] Comment on above: Performed By: #### 2 776609, 5525282, 82102244, 18753636, 3438922, 6648193, 29637391 #### [facility] [address] [place] [address] MCHC (RBC) [Mass/Vol] 32.7 g/dL Normal 31.4-36.0 [facility] Comment on above: Performed By: #### 2 813421, 5454263, 47267045, 50868563, 4716424, 8437088, 60150248 #### [facility] [address] [place] [address] MCV (RBC) [Entitic vol] 82.2 fL Normal 80.0-100.0 [facility] Comment on above: Performed By: #### 2 889579, 0173757, 01246073, 11778279, 5246897, 0046323, 64858494 #### [facility] [address] [place] [address] Platelet mean volume (Bld) [Entitic vol] 8.0 fL Normal 6.4-10.8 [facility] Comment on above: Performed By: #### 2 548510, 4355163, 33037627, 65336310, 2395894, 8235402, 74500877 #### [facility] [address] [place] [address] Platelets (Bld) [#/Vol] 288.0 E9/L Normal 150. 0-500. 0 [facility] Comment on above: Performed By: #### 2 978438, 6573578, 66078686, 27053773, 3483677, 0141910, 23647519 #### [facility] [address] [place] [address] RBC (Bld) [#/Vol] 3.8 E12/L Low 4.3-5.9 [facility] Comment on above: Performed By: #### 2 208240, 2932869, 00655132, 82721388, 6568436, 4055106, 22828846 #### [facility] [address] [place] [address] WBC corrected for nucl RBC Auto (Bld) [#/Vol] 12.7 E9/L High 4.0-11.0 [facility] Comment on above: Performed By: #### 2 517847, 5887069, 20819232, 08695275, 2631831, 5154987, 88679319 #### [facility] [address] [place] [address] CHEMISTRYOrdered By: SYSTEM SYSTEM on 06-18-2022 Anion gap [Moles/Vol] 8 mmol/L Normal 6 - 16 mEq/L [facility] Remisol Calcium [Mass/Vol] 8.5 mg/dL Low 8.9 - 11. 1 mg/dL [facility] Chloride [Moles/Vol] 107 mmol/L Normal 101 - 1 11 mmol/L [facility] CO2 [Moles/Vol] 26 mmol/L Normal 21 - 31 mmol/L [facility] Creatinine [Mass/Vol] 1.2 mg/dL Normal 0.5 - 1.3 mg/dL [facility] GFR/1.73 sq M.predicted among blacks MDRD (S/P/Bld) [Vol rate/Area] mL/min/1.73 m2 Normal >=59mL/min /1.73 m2 FT Chem S GFR/1.73 sq M.predicted among non-blacks MDRD (S/P/Bld) [Vol rate/Area] mL/min/1.73 m2 Normal >=59mL/min /1.73 m2 [facility] Chem S Glucose [Mass/Vol] 92 mg/dL Normal 55 - 199 mg/dL [facility] Potassium [Moles/Vol] 4.2 mmol/L Normal 3.5 - 5.3 mmol/L [facility] Sodium [Moles/Vol] 137 mmol/L Normal 135 - 145 mmol/L [facility] Urea nitrogen [Mass/Vol] 20 mg/dL Normal 5 - 21 mg/dL [facility] Urea nitrogen/Creatinine [Mass ratio] 17 mg/mg Normal 10 - 20 [facility] Consent for Treatmenton Consent for Treatment [id number]#[id number]: 127 Normal [facility] ED Note-Nursingon 06-18-2022 ED Note-Nursing pt resting in the be d at this time. IV started. discussion regarding admission to the hospital, pt agreeable. Normal [facility] ED Note-Nursing pt back from CT at t his time. pt ambulated independently to the restroom. denies any other needs Normal [facility] HEMATOLOGYOrdered By: SYSTEM SYSTEM on 06-18-2022 Basophils/100 WBC (Bld) 0.6 % Normal 0.0 - 2.0 % [facility] Basophils/Leukocytes Auto (Bld) [Pure # fraction] 0.1 E9/L Normal 0.0 - 0.2 E9/L [facility] Eosinophils/100 WBC (Bld) 0.5 % Normal 0.0 - 8.0 % [facility] Eosinophils/Leukocytes Auto (Bld) [Pure # fraction] 0.1 E9/L Normal 0.0 - 0.5 E9/L [facility] Lymphocytes/100 WBC (Bld) 9.2 % Low 14.0 - 50.0 % [facility] Lymphocytes/Leukocytes Auto (Bld) [Pure # fraction] 1.2 E9/L Normal 1.0 - 4.0 E9/L [facility] Monocytes/100 WBC (Bld) 8.1 % Normal 4.0 - 14.0 % [facility] Monocytes/Leukocytes Auto (Bld) [Pure # fraction] 1.0 E9/L Normal 0.2 - 1.0 E9/L [facility] Neutrophils/100 WBC (Bld) 81.6 % High 36.0 - 75.0 % [facility] Neutrophils/Leukocytes Auto (Bld) [Pure # fraction] 10.4 E9/L High 2.0 - 7.5 E9/L [facility] HEMATOLOGYOrdered By: Bubba Saunders on 06-18-2022 Erythrocyte distribution width (RBC) [Ratio] 15.7 % High 10.9 - 14.2 % [facility] Hematocrit (Bld) [Volume fraction] 31.6 % Low 37.7 - 49.0 % [facility] Hemoglobin (Bld) [Mass/Vol] 10.3 g/dL Low 13.5 - 17.5 gm/dL [facility] MCH (RBC) [Entitic mass] 26.9 pg Low 27.0 - 34.0 pg [facility] MCHC (RBC) [Mass/Vol] 32.7 g/dL Normal 31.4 - 36.0 gm/dL [facility] MCV (RBC) [Entitic vol] 82.2 fL Normal 80.0 - 100.0 fL [facility] Platelet mean volume (Bld) [Entitic vol] 8.0 fL Normal 6.4 - 10.8 fL [facility] Platelets (Bld) [#/Vol] 288.0 E9/L Normal 150. 0 - 500.0 E9/L [facility] RBC (Bld) [#/Vol] 3.8 E12/L Low 4.3 - 5.9 E12/L [facility] WBC corrected for nucl RBC Auto (Bld) [#/Vol] 12.7 E9/L High 4.0 - 11.0 E9/L [facility] MICRO OTHER TESTSOrdered By: Bubba Saunders on 06-18-2022 Occult Bld Stl Positive *ABN* (06/18/22 7:02 PM) Invalid Interpretation Code Negative [facility] RAD - Preliminary Cat Scan R eporton 06-18-2022 RAD - Preliminary Cat Scan Report [id number]#[id number] :127 Normal [facility] Stl [place]cl[place] 06-18-2022 Occult Bld Stl Positive Abnormal Negative [facility] Comment on above: Performed By: #### 2 133137, 9212117, 75280004, 44586959, 6685873, 3743069, 22786295 #### [facility] [address] [place] [address] eGFRon 06-18-2022 GFR/1.73 sq M.predicted among blacks MDRD (S/P/Bld) [Vol rate/Area] mL/min/{1.73_m2} Normal >=59 [facility] Comment on above: Order Comment: Order added by Discern Expert. Result Comment: eGFR is race adjusted. AA=. Performed By: #### 2 029045, 2700927, 67314472, 37725467, 9036772, 8890177, 01869022 #### [facility] [address] [place] [address] GFR/1.73 sq M.predicted among non-blacks MDRD (S/P/Bld) [Vol rate/Area] mL/min/{1.73_m2} Normal >=59 [facility] Comment on above: Order Comment: Order added by Discern Expert. Result Comment: [employer] c[employer] kidney disease could be indicated at eGFR's of less than 60 mL/min/1.73m2. Kidney failure is indicated at less than 15 mL/min/1.73m2. Performed By: #### 2 652205, 5679705, 28181860, 00977298, 6337687, 1394045, 54850993 #### [facility] [address] [place] [address] ALBUMINon 06-17-2022 Albumin [Mass/Vol] 2.4 g/dL Critically low 3.4-5.[address] [facility] Comment on above: Performed By: #### A LB, CRP, ALT #### [facility] [address] [place], [place] [address] Dr. Bartolome Arita ALKALINE PHOSPHAon 3 ALP [Catalytic activity/Vol] 76 U/L Normal 46-116 [facility] Comment on above: Performed By: #### A LT, ALB, CRP, ALP #### [facility] [address] [place] [address] Dr. Bartolome Arita CBC AUTO DIFFon 06-17-2022 BASO # 0.1 103/ul Normal 0.0-0.1 [facility] Comment on above: Performed By: #### A LB, CRP, ALT #### [facility] [address] [place] [address] Dr. Bartolome Arita Basophils/100 WBC (Bld) 0.6 % Normal 0.2-2.0 [facility] Comment on above: Performed By: #### A LB, CRP, ALT #### [facility] [address] [place] [address] Dr. Bartolome Arita EO # 0.3 103/ul Normal 0.0-0.7 [facility] Comment on above: Performed By: #### A LB, CRP, ALT #### [facility] [address] [place] [address] Dr. Bartolome Arita Eosinophils/100 WBC (Bld) 2.9 % Normal 0.9-7.0 [facility] Comment on above: Performed By: #### A LB, CRP, ALT #### [facility] [address] [place] [address] Dr. Bartolome Arita Erythrocyte distribution width (RBC) [Ratio] 14.6 % Normal 11.0-15.0 [facility] Comment on above: Performed By: #### A LB, CRP, ALT #### [facility] [address] [place] [address] Dr. Bartolome Arita Hematocrit (Bld) [Volume fraction] 37.8 % Critically low 42.0-54.0 [facility] Comment on above: Performed By: #### A LB, CRP, ALT #### [facility] [address] [place] [address] Dr. Bartolome Arita Hemoglobin (Bld) [Mass/Vol] 12.3 g/dL Critically low 14.0-18.0 [facility] Comment on above: Performed By: #### A LB, CRP, ALT #### [facility] [address] [place] [address] Dr. Bartolome Arita IG # 0.07 10e3/ul Critically high 0.00-0.03 [facility] Comment on above: Performed By: #### A LB, CRP, ALT #### [facility] [address] [place] [address] Dr. Bartolome Arita IG % 0.7 % Critically high 0.0-0.5 [facility] Comment on above: Performed By: #### A LB, CRP, ALT #### [facility] [address] [place] [address] Dr. Bartolome Arita LYMPH # 1.7 103/ul Normal 1.2-3.8 [facility] Comment on above: Performed By: #### A LB, CRP, ALT #### [facility] [address] [place] [address] Dr. Bartolome Arita Lymphocytes/100 WBC (Bld) 16.2 % Critically low 20.5-60.0 [facility] Comment on above: Performed By: #### A LB, CRP, ALT #### [facility] [address] [place] [address] Dr. Bartolome Arita MANUAL DIFF REQ NO Normal [facility] Comment on above: Performed By: #### A LB, CRP, ALT #### [facility] [address] [place] [address] Dr. Bartolome Arita MCH (RBC) [Entitic mass] 27.9 pg Normal 25.9-34.0 [facility] Comment on above: Performed By: #### A LB, CRP, ALT #### [facility] [address] [place] [address] Dr. Bartolome Arita MCHC (RBC) [Mass/Vol] 32.5 g/dL Normal 29.9-35.2 [facility] Comment on above: Performed By: #### A LB, CRP, ALT #### [facility] [address] [place] [address] Dr. Bartolome Arita MCV (RBC) [Entitic vol] 85.7 fL Normal 80.0-94.0 [facility] Comment on above: Performed By: #### A LB, CRP, ALT #### [facility] [address] [place] [place] [address] [address] Bartolome Arita MONO # 1.1 103/ul Critically high 0.3-0.8 [facility] Comment on above: Performed By: #### A LB, CRP, ALT #### [facility] [address] [place] [address] [address] Bartolome Arita Monocytes/100 WBC (Bld) 10.7 % Normal 1.7-12.0 [facility] Comment on above: Performed By: #### A LB, CRP, ALT #### [facility] [address] [place] [address] Dr. Bartolome Arita NEUT # 7.4 103/ul Critically high 1.4-6.5 [facility] Comment on above: Performed By: #### A LB, CRP, ALT #### [facility] [address] [place] [address] Dr. Bartolome Arita Neutrophils/100 WBC (Bld) 68.9 % Normal 43.0-75.0 [facility] Comment on above: Performed By: #### A LB, CRP, ALT #### [facility] [address] [place] [address] [address] Bartolome Arita Platelet mean volume (Bld) [Entitic vol] 10.3 fL Normal 9.5-13.5 [facility] Comment on above: Performed By: #### A LB, CRP, ALT #### [facility] [address] [place] [address] Dr. Bartolome Arita PLT 261 103/ul Normal 150-[address] [facility] Comment on above: Performed By: #### A LB, CRP, ALT #### [facility] [address] [place] [address] Dr. Barotlome Arita RBC 4.41 106/ul Critically low 4.70-6.10 [facility] Comment on above: Performed By: #### A LB, CRP, ALT #### [facility] [address] [place] [address] [address] Bartolome Arita WBC 10.7 103/ul Normal 4.0-11.0 [facility] Comment on above: Performed By: #### A LB, CRP, ALT #### [facility] [address] [place] [address] [address] Bartolome Arita CRPon 06-17-2022 CRP [Mass/Vol] mg/L Normal <=1.0 [facility] Comment on above: Performed By: #### A LB, CRP, ALT #### [facility] [address] [place] [id number] Bartolome Arita SGPTon 06-17-2022 ALT [Catalytic activity/Vol] 30 U/L Normal 16-63 [facility] Comment on above: Performed By: #### A LB, CRP, ALT #### [facility] [address] [place] [address] [address] Bartolome Arita Ambulatory Visit Summaryon 0 06-15-2022 Ambulatory Visit Summary JOSÉ MIGUEL CARRENO :1960 Visit Date:06/15/2022 Ambulatory Visit Instructions Your Diagnosis Crohn's disease, small and large intestine Steroid dependent S/P partial colectomy, S/P small bowel resection Low serum potassium level Your Care Team Attending Physician - Brady HELLER MD Primary Care Physician - DELMIS HORN DO This Is Your Medications List Contact prescribing physician if questions or concerns budesonide cholecalciferol (Vitamin D3 1000 intl units oral capsule) cyanocobalamin (Vitamin B12 50 mcg oral tablet) lisinopril (lisinopril 20 mg Tab) magnesium oxide (magnesium oxide base 500 mg oral tablet) metoprolol (metoprolol 25 mg ER Tab) multivitamin (Multi Vitamin+) polyethylene glycol 3350 with electrolytes (polyethylene glycol 3350 with electrolytes Oral Pwdr for Rosemary 4000 mL (NuLytely)) potassium chloride (potassium chloride 20 mEq ER Tab) predniSONE (predniSONE 2.5 mg oral tablet) predniSONE (predniSONE 20 mg Tab) Procedures Performed Colonoscopy (08/15/2016). Discharge Vitals Heart Rate (Peripheral) 76 Respiratory Rate 16 Blood Pressure 142/82 Height 78 in Height 197 cm Weight 202.18 lb Weight 91.9 kg BMI 23.68 Medications What How Much When Instructions Unchanged budesonide Contact prescribing physician if questions or concerns Unchanged cholecalciferol (Vitamin D3 1000 intl units oral capsule) By Mouth Every day Contact prescribing physician if questions or concerns Unchanged cyanocobalamin (Vitamin B12 50 mcg oral tablet) By Mouth Every day Contact prescribing physician if questions or concerns Unchanged lisinopril (lisinopril 20 mg Tab) By Mouth Every day Contact prescribing physician if questions or concerns Unchanged magnesium oxide (magnesium oxide base 500 mg oral tablet) By Mouth Once a day (at bedtime) Contact prescribing physician if questions or concerns Unchanged metoprolol (metoprolol 25 mg ER Tab) By Mouth Every day Contact prescribing physician if questions or concerns Unchanged multivitamin (Multi Vitamin+) Contact prescribing physician if questions or concerns Unchanged polyethylene glycol 3350 with electrolytes (polyethylene glycol 3350 with electrolytes Oral Pwdr for Rosemary 4000 mL (NuLytely)) See instructions per physician's instructions prior to colonoscopy Contact prescribing physician if questions or concerns Unchanged potassium chloride (potassium chloride 20 mEq ER Tab) By Mouth 2 times a day Contact prescribing physician if questions or concerns Unchanged predniSONE (predniSONE 2.5 mg oral tablet) By Mouth Every day Contact prescribing physician if questions or concerns Unchanged predniSONE (predniSONE 20 mg Tab) By Mouth Every day Contact prescribing physician if questions or concerns Allergies azaTHIOprine (Joint pain) Problems Ongoing - Any problem that you are currently receiving treatment for. Crohn's disease Crohn's disease, small and large intestine Hypokalemia Low serum potassium level S/P partial colectomy S/P small bowel resection Steroid dependent Normal [facility] Gastroenterology Office/Clin ic Noteon 06-15-2022 Gastroenterology Office/Clinic Note Chief Complaint 6 mon f/u HPI Staff Patient is a(n) 62 year old male who presents today for a(n) 6 month follow up for Crohn's disease. History of Present Illness José Miguel Carreno is a 62-year-old white male who presents today for a 6-month follow-up. His last visit was in 12/2021. He has a chronic history of small and large intestinal Crohn's disease, initially diagnosed in 1999. He had a structuring type of Crohn's disease requiring multiple small and large intestinal surgeries including right hemicolectomy. He has been on multiple biological treatments including Humira, Cimzia, Stelara, Entyvio, and an off label trial of Rinvoq at [facility]. He was eventually started on Skyrizi in 09/2019 and according to his last note, he was improving with Skyrizi. The patient reports that he is not improving, but he is not getting worse. He is prednisone dependent on 7.5 mg for the past 3 months despite taking the Skyrizi. We was not able to sustain being off the prednisone for an extended period of time. His previous provider at [facility] retired and his next appointment is in 08/2022 or 09/2022. He has a history of chronic hypokalemia. He is due for blood work at the end of the week [facility] months. He has 3 to 4 bowel movements daily despite taking prednisone. He states that the prednisone improves the cramping, but not the diarrhea. He is still taking potassium supplements and his potassium level has improved. He is taking vitamin D. He had a DEXA scan in 08/2021. He notes he has 7.5 feet of small intestines left. Review of Systems PHQ Score Initial Depression Screen Score: 0 Constitutional: no fever, no chills, no sweats, no weakness Skin: no Jaundice, no rash, no lesions, no petechiae ENMT: no ear pain, no sore throat, no congestion, no hoarseness Respiratory: no shortness of breath, no cough, no orthopnea, no wheezing Cardiovascular: no chest pain, no palpitations, no edema Gastrointestinal: no nausea, no vomiting, no constipation, no GI bleeding, no dysphagia, no bloating, no heartburn. Positive for abdominal pain, diarrhea and multiple abdominal surgeries. Genitourinary: no dysuria, no hematuria, no discharge, no pain Musculoskeletal: no back pain, no trauma Neurologic: no numbness, no sleeping problems Additional ROS info: Except as noted in the above Review of Systems and in the History of Present Illness all other systems have been reviewed and are negative or noncontributory. Physical Exam Vitals & Measurements HR: 76(Peripheral) RR: 16 BP: 142/82 HT: 78 in HT: 197 cm WT: 91.9 kg WT: 202.18 lb BMI: 23.68 Constitutional: Appearance: well developed Skin: Inspection: no rashes, ulcers, icterus, or telangiectasias. Eyes: Conjunctivae/lids: normal conjunctivae and lids. ENMT: Hearing: within normal limits. Lips/Teeth/Gums: normal oral mucosa Neck: Neck: normal motion, central trachea Respiratory: Percussion: thorax normoresonant. Auscultation: normal breath sounds; no rubs, wheezes, rale or ronchi. Cardiovascular: Auscultation: normal rhythm, S1 and S2; no rubs, murmurs or gallop. Peripheral: no edema Gastrointestinal/Abdomen : Abdomen: normal consistency and bowel sounds; no tenderness or masses. Liver/Spleen: normal size and consistency, not palpable. Rectal: deferred Musculoskeletal: Gait/station: normal gait Assessment/Plan 1. Crohn's disease, small and large intestine (K50.80: Crohn's disease of both small and large intestine without complications) This was initially diagnosed in 2019. The patient has a stricturing form of Crohn's with multiple small intestinal and right hemicolectomy surgeries. He believes that he has 7 feet left in the small intestines. He tried multiple biological treatment in the past including Remicade, Humira, Cimzia, Stelara, and Entyvio. Currently, he is on Skyrizi since 2019. He feels that he is doing better with Skyrizi, although his symptoms are not 100% gone. He is steroid dependent and he is on 7.5 mg. He was advised to continue with vitamin D. He was advised to continue with the current treatment. He was advised to proceed with DEXA scan every 3 to 5 years. He is also following up with [facility] gastroenterology for the same. 2. 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 3. S/P partial colectomy, (Z90.49: Acquired absence of other specified parts of digestive tract)S/P small bowel resection The patient had a history of right hemicolectomy with ileocolonic anastomosis. 5. Low serum potassium level (E87.6: Hypokalemia) He is on daily supplements with frequent blood tests every 2 months. ATTESTATION: Documentation services were performed after patient or guardian consented to allow [facility] to record this visit. [employer] medical insurance coding specialist and provider reviewed before signing. ZINA: Yannick Sherwood Follow-up No quali (more content not included)... Normal [facility] Comment on above: Result Comment: Elec tronically Signed By: Yannick Sherwood\.br\Date and Time Signed: 06/15/22 11:41 EDT\.br\Electronically Co-Signed By: Brady HELLER MD\.br\Date and Time Co-Signed: 06/15/22 19:51 EDT Covid-19 PCR (CVDTB)on 05-11 SARS-CoV-2 (COVID-19) RNA BOUCHRA+probe Ql (Unsp spec) Not detected Normal NOT DETECTED [facility] Comment on above: Result Comment: When diagnostic testing is negative, the possibility of a false negative should be considered in the context of a patient's recent exposures and the presence of clinical signs and symptoms consistent with SARS-CoV-2. This test is not yet approved or cleared by the [place] FDA. When there are no FDA-approved or cleared tests available, and other criteria are met, FDA can make tests available under an emergency access mechanism called an Emergency Use Authorization (EUA). The EUA for this test is supported by the [place] of Health and Human Service's declaration that circumstances exist to justify the emergency use of in vitro diagnostics for the detection and/or diagnosis of the virus that causes COVID-19. This EUA will remain in effect for the duration of the COVID-19 declaration justifying emergency of IVDs, unless it is terminated or revoked by the FDA (after which the test may no longer be used). Performed By: #### A LB, CRP, ALT #### [facility] [address] [address] [address] Bartolome Arita INFLUENZA A AND B AGon 05-27 INFLUANE SEE BELOW Normal [facility] Comment on above: Result Comment: Nega tive for Flu A protein angiten. Infection due to Flu A cannot be ruled out. Flu A angiten in the sample may be below the detection limit of the test. Performed By: #### A LB, CRP, ALT #### [facility] [address] [address] [address] [facility] Normal [facility] Comment on above: Result Comment: Nega tive for Flu B protein antigen. Infection due to Flu B cannot be ruled out. Flu B antigen in the sample may be below the detection limit of the test. Performed By: #### A LB, CRP, ALT #### [facility] [address] [place] [address] Dr. Bartolome Arita INFLUENZA A AG Negative Normal NEGATIVE SEE COMMENT [facility] Comment on above: Performed By: #### A LB, CRP, ALT #### [facility] [address] [place] [address] Dr. Bartolome Arita INFLUENZA B AG Negative Normal NEGATIVE SEE COMMENT [facility] Comment on above: Performed By: #### A LB, CRP, ALT #### [facility] [address] [place] [address] Dr. Bartolome Arita SYMPTOMATIC COVID-19 ANTIGEN on 05-27-2022 EUA Statement SEE BELOW Normal [facility] Comment on above: Result Comment: This test has not been FDA cleared or approved, but has been authorized by the FDA under an Emergency Use Authorization (EUA) for use by authorized laboratories certified under CLIA that meet the requirements to perform moderate or high complexity testing. This test has been authorized only for the detection of proteins from SARS-CoV-2, not for any other viruses or pathogens. The emergency use of this test is authorized for the duration of the declaration that circumstances exist justifying the authorization of emergency use of in vitro diagnostic tests for detection and/or diagnosis of Covid-19 under section 564(b)(1) of the Act, 21 U.S.C. 360bbb-3(b)(1), unless the declaration is terminated or authorization is revoked sooner. Performed By: #### A LB, CRP, ALT #### [facility] [address] [place] [address] Dr. Bartolome Arita SARS-CoV-2 (COVID-19) RNA BOUCHRA+probe Ql (Unsp spec) Negative Normal NEGATIVE [facility] Comment on above: Performed By: #### A LB, CRP, ALT #### [facility] [address] [place] [address] Dr. Bartolome Arita ALBUMINon 04-14-2022 Albumin [Mass/Vol] 2.7 g/dL Critically low 3.4-5.0 [facility] Comment on above: Performed By: #### A LT, CRP, ALB, ALP #### [facility] [address] [place] [address] Dr. Bartolome Arita ALKALINE PHOSPHAon ALP [Catalytic activity/Vol] 81 U/L Normal 46-116 [facility] Comment on above: Performed By: #### A LT, CRP, ALB, ALP #### [facility] [address] [place] [address] Dr. Bartolome Arita CBC AUTO DIFFon 04-14-2022 BASO # 0.1 103/ul Normal 0.0-0.1 [facility] Comment on above: Performed By: #### A LB, CRP, ALT #### [facility] [address] [place] [address] Dr. Bartolome Arita Basophils/100 WBC (Bld) 0.8 % Normal 0.2-2.0 [facility] Comment on above: Performed By: #### A LB, CRP, ALT #### [facility] [address] [place] [address] Dr. Bartolome Arita EO # 0.3 103/ul Normal 0.0-0.7 [facility] Comment on above: Performed By: #### A LB, CRP, ALT #### [facility] [address] [place] [address] Dr. Bartolome Arita Eosinophils/100 WBC (Bld) 2.4 % Normal 0.9-7.0 [facility] Comment on above: Performed By: #### A LB, CRP, ALT #### [facility] [address] [place] [address] Dr. Bartolome Arita Erythrocyte distribution width (RBC) [Ratio] 15.3 % Critically high 11.0-15.0 [facility] Comment on above: Performed By: #### A LB, CRP, ALT #### [facility] [address] [place] [address] Dr. Bartolome Arita Hematocrit (Bld) [Volume fraction] 42.0 % Normal 42.0-54.0 [facility] Comment on above: Performed By: #### A LB, CRP, ALT #### [facility] [address] [address] [address] Bartolome Arita Hemoglobin (Bld) [Mass/Vol] 13.1 g/dL Critically low 14.0-18.0 [facility] Comment on above: Performed By: #### A LB, CRP, ALT #### [facility] [address] [address] [address] Bartolome Arita IG # 0.19 10e3/ul Critically high 0.00-0.03 [facility] Comment on above: Performed By: #### A LB, CRP, ALT #### [facility] [address] [place] [address] Dr. Bartolome Arita IG % 1.7 % Critically high 0.0-0.5 [facility] Comment on above: Performed By: #### A LB, CRP, ALT #### [facility] [address] [place] [address] Dr. Bartolome Arita LYMPH # 2.3 103/ul Normal 1.2-3.[address] [facility] Comment on above: Performed By: #### A LB, CRP, ALT #### [facility] [address] [place] [address] Dr. Bartolome Arita Lymphocytes/100 WBC (Bld) 20.2 % Critically low 20.5-60.[address] [facility] Comment on above: Performed By: #### A LB, CRP, ALT #### [facility] [address] [place] [address] Dr. Bartolome Arita MANUAL DIFF REQ NO Normal [facility] Comment on above: Performed By: #### A LB, CRP, ALT #### [facility] [address] [place] [address] Dr. Bartolome Arita MCH (RBC) [Entitic mass] 27.2 pg Normal 25.9-34.[address] [facility] Comment on above: Performed By: #### A LB, CRP, ALT #### [facility] [address] [place] [address] Dr. Bartolome Arita MCHC (RBC) [Mass/Vol] 31.2 g/dL Normal 29.9-35.2 [facility] Comment on above: Performed By: #### A LB, CRP, ALT #### [facility] [address] [place] [address] Dr. Bartolome Arita MCV (RBC) [Entitic vol] 87.1 fL Normal 80.0-94.0 [facility] Comment on above: Performed By: #### A LB, CRP, ALT #### [facility] [address] [place] [address] Dr. Bartolome Arita MONO # 1.1 103/ul Critically high 0.3-0.8 [facility] Comment on above: Performed By: #### A LB, CRP, ALT #### [facility] [address] [place] [address] Dr. Bartolome Arita Monocytes/100 WBC (Bld) 9.4 % Normal 1.7-12.0 [facility] Comment on above: Performed By: #### A LB, CRP, ALT #### [facility] [address] [place] [address] Dr. Bartolome Arita NEUT # 7.4 103/ul Critically high 1.4-6.5 [facility] Comment on above: Performed By: #### A LB, CRP, ALT #### [facility] [address] [place] [address] Dr. Bartolome Arita Neutrophils/100 WBC (Bld) 65.5 % Normal 43.0-75.0 [facility] Comment on above: Performed By: #### A LB, CRP, ALT #### [facility] [address] [place] [address] Dr. Bartolome Arita Platelet mean volume (Bld) [Entitic vol] 9.4 fL Critically low 9.5-13.5 [facility] Comment on above: Performed By: #### A LB, CRP, ALT #### [facility] [address] [place] [address] Dr. Bartolome Arita PLT 260 103/ul Normal 150-[address] [facility] Comment on above: Performed By: #### A LB, CRP, ALT #### [facility] [address] [address] [address] Bartolome Arita RBC 4.82 106/ul Normal 4.70-6.[address] [facility] Comment on above: Performed By: #### A LB, CRP, ALT #### [facility] [address] [address] [address] Bartolome Arita WBC 11.3 103/ul Critically high 4.0-11.0 [facility] Comment on above: Performed By: #### A LB, CRP, ALT #### [facility] [address] [address] [address] Bartolome Arita CRPon 04-14-2022 CRP 0.3 mg/dL Normal <=1.0 [facility] Comment on above: Performed By: #### A LT, CRP, ALB, ALP #### [facility] [address] [address] [address] Bartolome Arita SGPTon 04-14-2022 ALT [Catalytic activity/Vol] 26 U/L Normal 16-[address] [facility] Comment on above: Performed By: #### A LT, CRP, ALB, ALP #### [facility] [address] [address] [address] 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) Overweight with body mass index (BMI) of 25 to 25.9 in adult (278.02,V85.21) (E66.3,Z68.25) Never a smoker Orders Benign essential hypertension Start: amLODIPine Besylate 2.5 MG Oral Tablet; Take 1 tablet by mouth daily Overweight with body mass index (BMI) of 25 to 25.9 in adult Healthy Weight Tips; Status:Complete - Retrospective Authorization; Done: 08Feb2022 Some eating tips that can help you lose weight.; Status:Complete - Retrospective Authorization; Done: 08Feb2022 SocHx: Never a smoker Tobacco Use Screening; Status:Complete; Done: 08Feb2022 Unlinked Stop: amLODIPine Besylate 5 MG Oral Tablet Patient Instructions Please bring all medicines, vitamins, and herbal supplements with you when you come to the office. Prescriptions will not be filled unless you are compliant with your follow up appointments or have a follow up appointment scheduled as per instruction of your physician. Refills should be requested at the time of your visit. Pacemaker/Defibrillator Routine Follow-up. Follow up in 6 months Chief Complaint JOSÉ MIGUEL CARRENO is being seen for a 9 month follow-up of. History of Present Illness Returns in follow-up of problems as noted. He is done well. He has had no arrhythmia symptomatology and he denies orthopnea PND dyspnea exertion palpitation or chest pain. Management of blood pressure appears acceptable and actually we discussed a reduction in his pharmacologic management because of the control that he is achieved with diet lifestyle modification and exercise because of this dosage reduction will be employed. ICD device checks are reviewed and found to be satisfactory. We did advocate the merits of a modest diet and losing several pounds. He was congratulated on his lifestyle accomplishments and encouraged to continue otherwise as before and follow-up next year. Surgical History Problems History of Abdominal surgery x7 History of Back surgery History of Colonoscopy 2020 History of Sinus surgery Current Meds Medication NameInstruction amLODIPine Besylate 5 MG Oral TabletTake 1 tablet daily Budesonide 3 MG Oral Capsule Delayed Release ParticlesTAKE 2 CAPSULE Daily Dodex 1000 MCG/ML Injection SolutionINJECT 1 ML INTRAMUSCULARLY ONCE A MONTH Lisinopril 20 MG Oral TabletTAKE 1 TABLET DAILY. Mag-Ox 400 400 MG TABSTAKE 1 TABLET DAILY. Metoprolol Succinate ER 25 MG Oral Tablet Extended Release 24 Hour1/2 tablet daily. Minocycline HCl - 100 MG Oral TabletTake 1 tablet daily Multi Vitamin Oral TabletTAKE 1 TABLET DAILY. Potassium Chloride ER 20 MEQ Oral Tablet Extended ReleaseTAKE 2 TABLET Daily predniSONE 1 MG Oral TabletTake 1 tablet daily Skyrizi (150 MG Dose) 75 MG/0.83ML Subcutaneous Prefilled Syringe Kit Vitamin D3 25 MCG (1000 UT) Oral CapsuleTAKE 1 CAPSULE Daily Allergies Medication Imuran Recorded By: Lane Bairesll; 02/24/2021 2:16:22 PM Social History Problems Caffeine use (V49.89) (Z78.9) soda once in awhile Consumes alcohol (V49.89) (Z78.9) Rare Never a smoker No illicit drug use Review of Systems Constitutional: not feeling tired. Eyes: no eyesight problems. ENT: no hearing loss and no nosebleeds. Cardiovascular: no intermittent leg claudication and as noted in HPI. Respiratory: no chronic cough and no shortness of breath. Gastrointestinal: no change in bowel habits and no blood in stools. Genitourinary: no urinary frequency and no hematuria. Skin: no skin rashes. Neurological: no seizures and no frequent falls. Psychiatric: no depression and not suicidal. All other systems have been reviewed and are negative for complaint. Vitals Vital Signs Recorded: 08Feb2022 10:39AM Heart Rate96, L Radial Tfvmzggd315, LUE, Sitting Jtxakifqj35, LUE, Sitting Height6 ft 4 in Ubicsj481 lb BMI Pzbiceqxwd66.93 kg/m2 BSA Calculated2.28 Tobacco Useb) No Physical Exam Constitutional: alert and in no acute distress. Eyes: no erythema, swelling or discharge from the eye . Neck: neck is supple, symmetric, trachea midline, no masses and no thyromegaly . Pulmonary: no increased work of breathing or signs of respiratory distress and lungs clear to auscultation. Cardiovascular: carotid pulses 2+ bilaterally with no bruit , JVP was normal, no thrills , regular rhythm, normal S1 and S2, no murmurs , pedal pulses 2+ bilaterally and no edema . Abdomen: abdomen non-tender, no masses and no hepatomegaly . Skin: skin warm and dry, normal skin turgor . Psychiatric judgment and insight is normal and oriented to person, place and time . Signatures Electronically signed by : Eloise Culver MD; Feb 09 2022 6:00PM EST (Author) Normal [employer] Tobacco Screening.on 022 Tobacco use status CPHS b) No M P-Located [facility] y [address] DO Work Phone: Lab Reportson 12-29-2021 Lab Reports [id number]: 127 Normal [facility] CBC AUTO DIFFon 12-27-2021 BASO # 0.1 103/ul Normal 0.0-0.1 [facility] Comment on above: Performed By: #### C BC #### [facility] [address] [address] [address] Bartolome Arita Basophils/100 WBC (Bld) 0.4 % Normal 0.2-2.0 [facility] Comment on above: Performed By: #### C BC #### [facility] [address] [address] [address] Bartolome Arita EO # 0.0 103/ul Normal 0.0-0.7 [facility] Comment on above: Performed By: #### C BC #### [facility] [address] [place] [address] Dr. Bartolome Arita Eosinophils/100 WBC (Bld) 0.1 % Critically low 0.9-7.0 [facility] Comment on above: Performed By: #### C BC #### [facility] [address] [place] [address] Dr. Bartolome Arita Erythrocyte distribution width (RBC) [Ratio] 14.4 % Normal 11.0-15.0 [facility] Comment on above: Performed By: #### C BC #### [facility] [address] [place] [address] Dr. Bartolome Arita Hematocrit (Bld) [Volume fraction] 43.3 % Normal 42.0-54.0 [facility] Comment on above: Performed By: #### C BC #### [facility] [address] [place] [address] Dr. Bartolome Arita Hemoglobin (Bld) [Mass/Vol] 13.4 g/dL Critically low 14.0-18.0 [facility] Comment on above: Performed By: #### C BC #### [facility] [address] [place] [address] Dr. Bartolome Arita IG # 0.21 10e3/ul Critically high 0.00-0.03 [facility] Comment on above: Performed By: #### C BC #### [facility] [address] [place] [address] Dr. Bartolome Arita IG % 1.5 % Critically high 0.0-0.5 [facility] Comment on above: Performed By: #### C BC #### [facility] [address] [place] [address] Dr. Bartolome Arita LYMPH # 1.0 103/ul Critically low 1.2-3.8 [facility] Comment on above: Performed By: #### C BC #### [facility] [address] [place] [address] Dr. Bartolome Arita Lymphocytes/100 WBC (Bld) 7.0 % Critically low 20.5-60.0 [facility] Comment on above: Performed By: #### C BC #### [facility] [address] [place] [address] Dr. Bartolome Arita MANUAL DIFF REQ NO Normal [facility] Comment on above: Performed By: #### C BC #### [facility] [address] [place] [address] Dr. Bartolome Arita MCH (RBC) [Entitic mass] 26.0 pg Normal 25.9-34.0 [facility] Comment on above: Performed By: #### C BC #### [facility] [address] [place] [address] Dr. Bartolome Arita MCHC (RBC) [Mass/Vol] 30.9 g/dL Normal 29.9-35.2 [facility] Comment on above: Performed By: #### C BC #### [facility] [address] [place] [address] Dr. Bartolome Arita MCV (RBC) [Entitic vol] 84.1 fL Normal 80.0-94.0 [facility] Comment on above: Performed By: #### C BC #### [facility] [address] [place] [address] Dr. Bartolome Arita MONO # 0.6 103/ul Normal 0.3-0.8 [facility] Comment on above: Performed By: #### C BC #### [facility] [address] [address] [address] Bartolome Arita Monocytes/100 WBC (Bld) 4.2 % Normal 1.7-12.0 [facility] Comment on above: Performed By: #### C BC #### [facility] [address] [address] [address] Bartolome Arita NEUT # 11.9 103/ul Critically high 1.4-6.5 [facility] Comment on above: Performed By: #### C BC #### [facility] [address] [address] [address] Bartolome Arita Neutrophils/100 WBC (Bld) 86.8 % Critically high 43.0-75.0 [facility] Comment on above: Performed By: #### C BC #### [facility] [address] [place] [address] Dr. Bartolome Arita Platelet mean volume (Bld) [Entitic vol] 9.4 fL Critically low 9.5-13.5 [facility] Comment on above: Performed By: #### C BC #### [facility] [address] [place] [address] Dr. Bartolome Arita PLT 279 103/ul Normal 150-[address] [facility] Comment on above: Performed By: #### C BC #### [facility] [address] [place] [address] Dr. Bartolome Arita RBC 5.15 106/ul Normal 4.70-6.[address] [facility] Comment on above: Performed By: #### C BC #### [facility] [address] [place] [address] Dr. Bartolome Arita WBC 13.7 103/ul Critically high 4.0-11.0 [facility] Comment on above: Performed By: #### C BC #### [facility] [address] [place] [address] Dr. Bartolome Arita Gastroenterology Office/Clin ic Noteon 12-23-2021 Gastroenterology Office/Clinic Note Chief Complaint 3 mo f/u HPI Staff This is a 61 year old male who presents today for a 3 month follow up. History of Present Illness HISTORY OF PRESENT ILLNESS The 61-year-old white male presents today for a follow-up. He has a chronic history of small and large intestinal Crohn's disease diagnosed initially in 2019, stricturing type of Crohn's disease complicated with multiple small and large intestinal surgeries. He has only 9 feeds. He was told that he has 9 feet left in from the small intestines and he has a history of right hemicolectomy. 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 He continued to have evidence of active Crohn's disease. The patient was started on Skyrizi around 09/2019. Currently, he reports improvement in his diarrhea. He reports a decrease in the number of bowel movements from 4 to 2 and improvement in his stool consistency at the same time as he is on tapering dose of budesonide and prednisone. His current budesonide dose is 6 mg and current prednisone is 6 mg. He also had hypokalemia. He used to be on maintenance dose of potassium 20 mEq daily. His potassium dropped to 2.5 mEq/L. I gave him an extra dose of potassium at 40 mEq. Repeat potassium showed improvement of level up to 3.6 mEq/L on 12/15/2021. Currently, he is on potassium 40 mEq maintenance dose. Review of Systems PHQ Score Initial Depression Screen Score: 0 Constitutional: no fever, no chills, no sweats, no weakness Skin: no Jaundice, no rash, no lesions, no petechiae ENMT: no ear pain, no sore throat, no congestion, no hoarseness Respiratory: no shortness of breath, no cough, no orthopnea, no wheezing Cardiovascular: no chest pain, no palpitations, no edema Gastrointestinal: no nausea, no vomiting, no diarrhea, no constipation, no GI bleeding, no abdominal pain, no dysphagia, no bloating, no heartburn Genitourinary: no dysuria, no hematuria, no discharge, no pain Musculoskeletal: no back pain, no trauma Neurologic: no numbness, no sleeping problems Additional ROS info: Except as noted in the above Review of Systems and in the History of Present Illness all other systems have been reviewed and are negative or noncontributory. Physical Exam Vitals & Measurements HR: 83(Peripheral) RR: 16 BP: 164/92 HT: 78 in HT: 197 cm WT: 95.7 kg WT: 210.54 lb BMI: 24.66 Constitutional: Appearance: well developed Skin: Inspection: no rashes, ulcers, icterus, or telangiectasias. Eyes: Conjunctivae/lids: normal conjunctivae and lids. ENMT: Hearing: within normal limits. Lips/Teeth/Gums: normal oral mucosa Neck: Neck: normal motion, central trachea Respiratory: Percussion: thorax normoresonant. Auscultation: normal breath sounds; no rubs, wheezes, rale or ronchi. Cardiovascular: Auscultation: normal rhythm, S1 and S2; no rubs, murmurs or gallop. Peripheral: no edema Gastrointestinal/Abdomen : Abdomen: normal consistency and bowel sounds; no tenderness or masses. Liver/Spleen: normal size and consistency, not palpable. Rectal: deferred Musculoskeletal: Gait/station: normal gait Assessment/Plan 1. Crohn's disease (K50.90: Crohn's disease, unspecified, without complications) This was diagnosed in 2019, complicated with multiple small intestinal and large intestinal surgeries. The patient has 9 feeds from the small intestines. He previously failed multiple biological treatment including Humira, Cimzia, Entyvio, Stelara, and a trial of off-label medication Rinvoq. He was started on Skyrizi in 09/2019 and reported moderate clinical improvement since then. He is also on a tapering dose of prednisone and budesonide. He was advised to continue tapering his budesonide and prednisone with the current rate. We will continue with Skyrizi. We will reassess in 6 months. 2. S/P small bowel resection, (Z90.49: Acquired absence of other specified parts of digestive tract)S/P partial colectomy The patient has a right hemicolectomy and multiple small intestinal resection surgeries. There is no evidence of short bowel syndrome at this point. 3. 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 5. Hypokalemia (E87.6: Hypokalemia) The patient was on a maintenance dose of potassium 20 mEq. His potassium dropped to 2.5. This was corrected by increasing his potassium supplements to 40 mEq. His recent potassium level was 3.6 mEq/L. We will continue with 40 mEq maintenance dose. ATTESTATION: Documentation services were performed by ZINA after patient consented to recording for virtual medical insurance coding specialist and provider reviewed before signing. ZINA: Chari Cooley. Reviewed and entered into [employer] by Nat Yoder. Follow-up No qualifying data available Problem List/Past Medical History Ongoing Crohn's disease Hypo (more content not included)... Normal [facility] Comment on above: Result Comment: Elec tronically Signed By: Brady HELLER MD\.br\Date and Time Signed: 12/23/21 15:50 EDT\.br\Electronically Co-Signed By: Yannick Sherwood\.br\Date and Time Co-Signed: 12/22/21 13:28 EDT Ambulatory Visit Summaryon 1 Ambulatory Visit Summary JOSÉ MIGUEL CARRENO :1960 Visit Date:12/22/2021 Ambulatory Visit Instructions Your Diagnosis Crohn's disease S/P small bowel resection, S/P partial colectomy Steroid dependent Hypokalemia Your Care Team Attending Physician - Brady HELLER MD Primary Care Physician - DELMIS HORN DO This Is Your Medications List Contact prescribing physician if questions or concerns budesonide cholecalciferol (Vitamin D3 1000 intl units oral capsule) cyanocobalamin (Vitamin B12 50 mcg oral tablet) lisinopril (lisinopril 20 mg Tab) magnesium oxide (magnesium oxide base 500 mg oral tablet) metoprolol (metoprolol 25 mg ER Tab) multivitamin (Multi Vitamin+) polyethylene glycol 3350 with electrolytes (polyethylene glycol 3350 with electrolytes Oral Pwdr for Rosemary 4000 mL (NuLytely)) potassium chloride (potassium chloride 20 mEq ER Tab) predniSONE (predniSONE 2.5 mg oral tablet) predniSONE (predniSONE 20 mg Tab) Procedures Performed Colonoscopy (08/15/2016). Discharge Vitals Heart Rate (Peripheral) 83 Respiratory Rate 16 Blood Pressure 164/92 Height 78 in Height 197 cm Weight 210.54 lb Weight 95.7 kg BMI 24.66 What to do next Scheduled Follow-Up Appointments Monday 9:15 AM EDT With: Brady HELLER MD Where: [facility] Normal [facility] POTASSIUMon 12-14-2021 Potassium [Moles/Vol] 3.6 mmol/L Normal 3.5-5.1 [facility] Comment on above: Performed By: #### A LB, CRP, ALT #### [facility] [address] [place] [address] Dr. Bartolome Arita PROF 14(COMP METB)on 022 Albumin [Mass/Vol] 2.6 g/dL Critically low 3.4-5.[address] [facility] Comment on above: Performed By: #### C MP #### [facility] [address] [place] [address] Dr. Bartolome Arita Albumin/Globulin [Mass ratio] 0.8 {ratio} Normal [facility] Comment on above: Performed By: #### C MP #### [facility] [address] [place] [address] Dr. Bartolome Arita ALP [Catalytic activity/Vol] 70 U/L Normal 46-116 [facility] Comment on above: Performed By: #### C MP #### [facility] [address] [address] [address] Bartolome Arita ALT [Catalytic activity/Vol] 25 U/L Normal 16-63 [facility] Comment on above: Performed By: #### C MP #### [facility] [address] [place] [address] Dr. Bartolome Arita Anion gap [Moles/Vol] 8.3 mmol/L Normal [facility] Comment on above: Performed By: #### C MP #### [facility] [address] [place] [address] Dr. Bartolome Arita AST [Catalytic activity/Vol] 20 U/L Normal 15-37 [facility] Comment on above: Performed By: #### C MP #### [facility] [address] [place] [address] Dr. Bartolome Arita Bilirubin [Mass/Vol] 0.4 mg/dL Normal 0.2-1.0 [facility] Comment on above: Performed By: #### C MP #### [facility] [address] [address] [address] Bartolome Arita Calcium [Mass/Vol] 8.6 mg/dL Normal 8.5-10.1 [facility] Comment on above: Performed By: #### C MP #### [facility] [address] [address] [address] Bartolome Arita Chloride [Moles/Vol] 108 mmol/L Critically high 98-107 [facility] Comment on above: Performed By: #### C MP #### [facility] [address] [address] [address] Bartolome Arita CO2 [Moles/Vol] 29.8 mmol/L Normal 21.0-32.0 [facility] Comment on above: Performed By: #### C MP #### [facility] [address] [place] [address] Dr. Bartolome Arita Creatinine [Mass/Vol] 1.08 mg/dL Normal 0.70-1.30 [facility] Comment on above: Performed By: #### C MP #### [facility] [address] [address] [address] Bartolome Arita EGFR-AF ERITREAN >60 Normal >=60 [facility] Comment on above: Performed By: #### C MP #### [facility] [address] [place] [address] Dr. Bartolome Arita EGFR-NON AF ERITREAN >60 Normal >=60 [facility] Comment on above: Performed By: #### C MP #### [facility] [address] [place] [address] Dr. Bartolome Arita Globulin (S) [Mass/Vol] 3.4 g/dL Normal [facility] Comment on above: Performed By: #### C MP #### [facility] [address] [place] [address] Dr. Bartolome Arita Glucose [Mass/Vol] 115 mg/dL Critically high 74-106 [facility] Comment on above: Performed By: #### C MP #### [facility] [address] [place] [address] Dr. Bartolome Arita Potassium [Moles/Vol] 3.1 mmol/L Critically low 3.5-5.1 [facility] Comment on above: Performed By: #### C MP #### [facility] [address] [address] [address] Bartolome Arita Protein [Mass/Vol] 6.0 g/dL Critically low 6.4-8.2 [facility] Comment on above: Performed By: #### C MP #### [facility] [address] [address] [address] Bartolome Arita Sodium [Moles/Vol] 143 mmol/L Normal 136-145 [facility] Comment on above: Performed By: #### C MP #### [facility] [address] [place] [address] Dr. Bartolome Arita Urea nitrogen [Mass/Vol] 11.0 mg/dL Normal 7.0-18.0 [facility] Comment on above: Performed By: #### C MP #### [facility] [address] [place] [address] Dr. Bartolome Arita Urea nitrogen/Creatinine [Mass ratio] 10.2 mg/mg Normal [facility] Comment on above: Performed By: #### C MP #### [facility] [address] [place] [address] Dr. Bartolome Arita CBC AUTO DIFFon 11-27-2021 BASO # 0.1 103/ul Normal 0.0-0.1 [facility] Comment on above: Performed By: #### A LB, CRP, ALT #### [facility] [address] [place] [address] Dr. Bartolome Arita Basophils/100 WBC (Bld) 0.5 % Normal 0.2-2.0 [facility] Comment on above: Performed By: #### A LB, CRP, ALT #### [facility] [address] [place] [address] Dr. Bartolome Arita EO # 0.3 103/ul Normal 0.0-0.7 [facility] Comment on above: Performed By: #### A LB, CRP, ALT #### [facility] [address] [address] [address] Bartolome Arita Eosinophils/100 WBC (Bld) 1.8 % Normal 0.9-7.0 [facility] Comment on above: Performed By: #### A LB, CRP, ALT #### [facility] [address] [address] [address] Bartolome Arita Erythrocyte distribution width (RBC) [Ratio] 13.6 % Normal 11.0-15.0 [facility] Comment on above: Performed By: #### A LB, CRP, ALT #### [facility] [address] [address] [address] Bartolome Arita Hematocrit (Bld) [Volume fraction] 40.0 % Critically low 42.0-54.0 [facility] Comment on above: Performed By: #### A LB, CRP, ALT #### [facility] [address] [place] [address] Dr. Bartolome Arita Hemoglobin (Bld) [Mass/Vol] 12.6 g/dL Critically low 14.0-18.0 [facility] Comment on above: Performed By: #### A LB, CRP, ALT #### [facility] [address] [address] [address] Bartolome Arita IG # 0.19 10e3/ul Critically high 0.00-0.03 [facility] Comment on above: Performed By: #### A LB, CRP, ALT #### [facility] [address] [address] [address] Bartolome Arita IG % 1.2 % Critically high 0.0-0.5 [facility] Comment on above: Performed By: #### A LB, CRP, ALT #### [facility] [address] [address] [address] Bartolome Arita LYMPH # 1.9 103/ul Normal 1.2-3.8 [facility] Comment on above: Performed By: #### A LB, CRP, ALT #### [facility] [address] [address] [address] Bartolome Arita Lymphocytes/100 WBC (Bld) 12.3 % Critically low 20.5-60.0 [facility] Comment on above: Performed By: #### A LB, CRP, ALT #### [facility] [address] [place] [address] Dr. Bartolome Arita MANUAL DIFF REQ NO Normal [facility] Comment on above: Performed By: #### A LB, CRP, ALT #### [facility] [address] [place] [address] Dr. Bartolome Arita MCH (RBC) [Entitic mass] 26.3 pg Normal 25.9-34.0 [facility] Comment on above: Performed By: #### A LB, CRP, ALT #### [facility] [address] [place] [address] Dr. Bartolome Arita MCHC (RBC) [Mass/Vol] 31.5 g/dL Normal 29.9-35.2 [facility] Comment on above: Performed By: #### A LB, CRP, ALT #### [facility] [address] [place] [address] Dr. Bartolome Arita MCV (RBC) [Entitic vol] 83.5 fL Normal 80.0-94.0 [facility] Comment on above: Performed By: #### A LB, CRP, ALT #### [facility] [address] [place] [address] Dr. Bartolome Arita MONO # 1.5 103/ul Critically high 0.3-0.8 [facility] Comment on above: Performed By: #### A LB, CRP, ALT #### [facility] [address] [place] [address] Dr. Bartolome Arita Monocytes/100 WBC (Bld) 9.6 % Normal 1.7-12.0 [facility] Comment on above: Performed By: #### A LB, CRP, ALT #### [facility] [address] [place] [address] Dr. Bartolome Arita NEUT # 11.4 103/ul Critically high 1.4-6.5 [facility] Comment on above: Performed By: #### A LB, CRP, ALT #### [facility] [address] [place], [place] [id number] Dr. Bartolome Arita Neutrophils/100 WBC (Bld) 74.6 % Normal 43.0-75.[address] [facility] Comment on above: Performed By: #### A LB, CRP, ALT #### [facility] [address] [place] [address] Dr. Bartolome Arita Platelet mean volume (Bld) [Entitic vol] 9.6 fL Normal 9.5-13.[address] [facility] Comment on above: Performed By: #### A LB, CRP, ALT #### [facility] [address] [place] [address] Dr. Bartolome Arita PLT 262 103/ul Normal 150-[address] [facility] Comment on above: Performed By: #### A LB, CRP, ALT #### [facility] [address] [place] [address] Dr. Bartolome Arita RBC 4.79 106/ul Normal 4.70-6.[address] [facility] Comment on above: Performed By: #### A LB, CRP, ALT #### [facility] [address] [place] [address] Dr. Bartolome Arita WBC 15.3 103/ul Critically high 4.0-11.0 [facility] Comment on above: Performed By: #### A LB, CRP, ALT #### [facility] [address] [place] [address] Dr. Bartolome Arita CRPon 11-27-2021 CRP 0.8 mg/dL Normal <=1.0 [facility] Comment on above: Performed By: #### A LB, CRP, ALT #### [facility] [address] [place] [address] Dr. Bartolome Arita PROF 14(COMP METB)on 022 Albumin [Mass/Vol] 2.5 g/dL Critically low 3.4-5.[address] [facility] Comment on above: Performed By: #### A LB, CRP, ALT #### [facility] [address] [place] [address] Dr. Bartolome Arita Albumin/Globulin [Mass ratio] 0.7 {ratio} Normal [facility] Comment on above: Performed By: #### A LB, CRP, ALT #### [facility] [address] [address] [address] Bartolome Arita ALP [Catalytic activity/Vol] 74 U/L Normal 46-116 [facility] Comment on above: Performed By: #### A LB, CRP, ALT #### [facility] [address] [address] [address] Bartolome Arita ALT [Catalytic activity/Vol] 25 U/L Normal 16-63 [facility] Comment on above: Performed By: #### A LB, CRP, ALT #### [facility] [address] [address] [address] Bartolome Arita Anion gap [Moles/Vol] 7.0 mmol/L Normal [facility] Comment on above: Performed By: #### A LB, CRP, ALT #### [facility] [address] [address] [address] Bartolome Arita AST [Catalytic activity/Vol] 15 U/L Normal 15-37 [facility] Comment on above: Performed By: #### A LB, CRP, ALT #### [facility] [address] [address] [address] Bartolome Arita Bilirubin [Mass/Vol] 0.3 mg/dL Normal 0.2-1.0 [facility] Comment on above: Performed By: #### A LB, CRP, ALT #### [facility] [address] [address] [address] Bartolome Arita Calcium [Mass/Vol] 8.2 mg/dL Critically low 8.5-10.1 [facility] Comment on above: Performed By: #### A LB, CRP, ALT #### [facility] [address] [address] [address] Bartolome Arita Chloride [Moles/Vol] 109 mmol/L Critically high 98-107 [facility] Comment on above: Performed By: #### A LB, CRP, ALT #### [facility] [address] [address] [address] Bartolome Arita CO2 [Moles/Vol] 29.5 mmol/L Normal 21.0-32.0 [facility] Comment on above: Performed By: #### A LB, CRP, ALT #### [facility] [address] [address] [address] Bartolome Arita Creatinine [Mass/Vol] 1.05 mg/dL Normal 0.70-1.30 [facility] Comment on above: Performed By: #### A LB, CRP, ALT #### [facility] [address] [address] [address] Bartolome Arita EGFR-AF ERITREAN >60 Normal >=60 [facility] Comment on above: Result Comment: Prev iously reported as: (blank) On 11/27/2021 09:55 By AJR Performed By: #### A LB, CRP, ALT #### [facility] [address] [place] [address] Dr. Bartolome Arita EGFR-NON AF ERITREAN >60 Normal >=60 [facility] Comment on above: Result Comment: Prev iously reported as: (blank) On 11/27/2021 09:55 By AJR Performed By: #### A LB, CRP, ALT #### [facility] [address] [address] [address] Bartolome Arita Globulin (S) [Mass/Vol] 3.5 g/dL Normal [facility] Comment on above: Performed By: #### A LB, CRP, ALT #### [facility] [address] [place] [address] Dr. Bartolome Arita Glucose [Mass/Vol] 89 mg/dL Normal 74-106 [facility] Comment on above: Performed By: #### A LB, CRP, ALT #### [facility] [address] [address] [address] Bartolome Arita Potassium [Moles/Vol] 2.5 mmol/L Critically low 3.5-5.1 [facility] Comment on above: Performed By: #### A LB, CRP, ALT #### [facility] [address] [address] [address] Bartolome Arita Protein [Mass/Vol] 6.0 g/dL Critically low 6.4-8.2 [facility] Comment on above: Performed By: #### A LB, CRP, ALT #### [facility] [address] [place] [address] Dr. Bartolome Arita Sodium [Moles/Vol] 144 mmol/L Normal 136-145 [facility] Comment on above: Performed By: #### A LB, CRP, ALT #### [facility] [address] [place] [address] Dr. Bartolome Arita Urea nitrogen [Mass/Vol] 11.0 mg/dL Normal 7.0-18.0 [facility] Comment on above: Performed By: #### A LB, CRP, ALT #### [facility] [address] [place] [address] Dr. Bartolome Arita Urea nitrogen/Creatinine [Mass ratio] 10.5 mg/mg Normal [facility] Comment on above: Performed By: #### A LB, CRP, ALT #### [facility] [address] [place] [address] Dr. Bartolome Arita ALBUMINon 10-22-2021 Albumin [Mass/Vol] 2.4 g/dL Critically low 3.4-5.0 [facility] Comment on above: Performed By: #### A LB, CRP, ALT #### [facility] [address] [place] [address] Dr. Bartolome Arita CRPon 10-22-2021 CRP 1.1 mg/dL Critically high <=1.0 [facility] Comment on above: Performed By: #### A LB, CRP, ALT #### [facility] [address] [place] [address] Dr. Bartolome Arita FERRITINon 10-22-2021 Ferritin [Mass/Vol] 119.0 ng/mL Normal 26.0-388.0 [facility] Comment on above: Performed By: #### A LB, CRP, ALT #### [facility] [address] [place] [address] Dr. Bartolome Arita HEMOGRAM AND PLATELon 2021 Hematocrit (Bld) [Volume fraction] 36.6 % Critically low 42.0-54.0 [facility] Comment on above: Performed By: #### A LB, CRP, ALT #### [facility] [address] [place] [address] Dr. Bartolome Arita Hemoglobin (Bld) [Mass/Vol] 11.8 g/dL Critically low 14.0-18.0 [facility] Comment on above: Performed By: #### A LB, CRP, ALT #### [facility] [address] [place] [address] Dr. Bartolome Arita MCH (RBC) [Entitic mass] 28.6 pg Normal 25.9-34.[address] [facility] Comment on above: Performed By: #### A LB, CRP, ALT #### [facility] [address] [place] [address] Dr. Bartolome Arita MCHC (RBC) [Mass/Vol] 32.2 g/dL Normal 29.9-35.2 [facility] Comment on above: Performed By: #### A LB, CRP, ALT #### [facility] [address] [place] [address] Dr. Bartolome Arita MCV (RBC) [Entitic vol] 88.6 fL Normal 80.0-94.0 [facility] Comment on above: Performed By: #### A LB, CRP, ALT #### [facility] [address] [place] [address] Dr. Bartolome Arita PLT 302 103/ul Normal 150-[address] [facility] Comment on above: Performed By: #### A LB, CRP, ALT #### [facility] [address] [place] [address] Dr. Bartolome Arita RBC 4.13 106/ul Critically low 4.70-6.10 [facility] Comment on above: Performed By: #### A LB, CRP, ALT #### [facility] [address] [place] [address] Dr. Bartolome Arita WBC 13.2 103/ul Critically high 4.0-11.0 [facility] Comment on above: Performed By: #### A LB, CRP, ALT #### [facility] [address] [place] [address] Dr. Bartolome Arita SGPTon 10-22-2021 ALT [Catalytic activity/Vol] 22 U/L Normal 16-63 [facility] Comment on above: Performed By: #### A LB, CRP, ALT #### [facility] [address] [place] [address] Dr. Bartolome Arita CBC AUTO DIFFon 08-05-2021 BASO # 0.1 103/ul Normal 0.0-0.1 [facility] Comment on above: Performed By: #### A LB, CRP, ALT #### [facility] [address] [place] [address] Dr. Bartolome Arita Basophils/100 WBC (Bld) 0.6 % Normal 0.2-2.0 [facility] Comment on above: Performed By: #### A LB, CRP, ALT #### [facility] [address] [place] [address] Dr. Bartolome Arita EO # 0.0 103/ul Normal 0.0-0.7 [facility] Comment on above: Performed By: #### A LB, CRP, ALT #### [facility] [address] [place] [address] Dr. Bartolome Arita Eosinophils/100 WBC (Bld) 0.3 % Critically low 0.9-7.0 [facility] Comment on above: Performed By: #### A LB, CRP, ALT #### [facility] [address] [place] [address] Dr. Bartolome Arita Erythrocyte distribution width (RBC) [Ratio] 13.3 % Normal 11.0-15.0 [facility] Comment on above: Performed By: #### A LB, CRP, ALT #### [facility] [address] [place] [address] Dr. Bartolome Arita Hematocrit (Bld) [Volume fraction] 39.9 % Critically low 42.0-54.0 [facility] Comment on above: Performed By: #### A LB, CRP, ALT #### [facility] [address] [place] [address] Dr. Bartolome Arita Hemoglobin (Bld) [Mass/Vol] 12.7 g/dL Critically low 14.0-18.[address] [facility] Comment on above: Performed By: #### A LB, CRP, ALT #### [facility] [address] [address] Dr. Bartolome Arita IG # 0.06 10e3/ul Critically high 0.00-0.03 [facility] Comment on above: Performed By: #### A LB, CRP, ALT #### [facility] [address] [address] [address] Bartolome Arita IG % 0.6 % Critically high 0.0-0.5 [facility] Comment on above: Performed By: #### A LB, CRP, ALT #### [facility] [address] [place] [address] Dr. Bartolome Arita LYMPH # 0.8 103/ul Critically low 1.2-3.8 The [facility] Comment on above: Performed By: #### A LB, CRP, ALT #### [facility] [address] [place] [address] Dr. Bartolome Arita Lymphocytes/100 WBC (Bld) 7.4 % Critically low 20.5-60.[address] [facility] Comment on above: Performed By: #### A LB, CRP, ALT #### [facility] [address] [place] [address] Dr. Bartolome Arita MANUAL DIFF REQ NO Normal [facility] Comment on above: Performed By: #### A LB, CRP, ALT #### [facility] [address] [place] [address] Dr. Bartolome Arita MCH (RBC) [Entitic mass] 29.7 pg Normal 25.9-34.0 [facility] Comment on above: Performed By: #### A LB, CRP, ALT #### [facility] [address] [place] [address] Dr. Bartolome Arita MCHC (RBC) [Mass/Vol] 31.8 g/dL Normal 29.9-35.[address] [facility] Comment on above: Performed By: #### A LB, CRP, ALT #### [facility] [address] [address] [address] Bartolome Arita MCV (RBC) [Entitic vol] 93.2 fL Normal 80.0-94.0 [facility] Comment on above: Performed By: #### A LB, CRP, ALT #### [facility] [address] [address] [address] Bartolome Arita MONO # 0.9 103/ul Critically high 0.3-0.8 [facility] Comment on above: Performed By: #### A LB, CRP, ALT #### [facility] [address] [place] [address] Dr. Bartolome Arita Monocytes/100 WBC (Bld) 8.1 % Normal 1.7-12.0 [facility] Comment on above: Performed By: #### A LB, CRP, ALT #### [facility] [address] [place] [address] Dr. Bartolome Arita NEUT # 8.9 103/ul Critically high 1.4-6.5 [facility] Comment on above: Performed By: #### A LB, CRP, ALT #### [facility] [address] [place] [address] Dr. Bartolome Arita Neutrophils/100 WBC (Bld) 83.0 % Critically high 43.0-75.0 [facility] Comment on above: Performed By: #### A LB, CRP, ALT #### [facility] [address] [place] [address] Dr. Bartolome Arita Platelet mean volume (Bld) [Entitic vol] 10.0 fL Normal 9.5-13.5 [facility] Comment on above: Performed By: #### A LB, CRP, ALT #### [facility] [address] [place] [address] Dr. Bartolome Arita PLT 278 103/ul Normal 150-[address] [facility] Comment on above: Performed By: #### A LB, CRP, ALT #### [facility] [address] [place] [address] Dr. Bartolome Arita RBC 4.28 106/ul Critically low 4.70-6.10 [facility] Comment on above: Performed By: #### A LB, CRP, ALT #### [facility] [address] [address] [address] Bartolome Arita WBC 10.7 103/ul Normal 4.0-11.0 [facility] Comment on above: Performed By: #### A LB, CRP, ALT #### [facility] [address] [address] [address] Bartolome Arita CRPon 08-05-2021 CRP 4.8 mg/dL Critically high <=1.0 [facility] Comment on above: Performed By: #### A LB, CRP, ALT #### [facility] [address] [place] [address] Dr. Bartolome Arita PROF 14(COMP METB)on 022 Albumin [Mass/Vol] 2.9 g/dL Critically low 3.4-5.0 [facility] Comment on above: Performed By: #### A LB, CRP, ALT #### [facility] [address] [place] [address] Dr. Bartolome Arita Albumin/Globulin [Mass ratio] 0.7 {ratio} Normal [facility] Comment on above: Performed By: #### A LB, CRP, ALT #### [facility] [address] [place] [address] Dr. Bartolome Arita ALP [Catalytic activity/Vol] 90 U/L Normal 46-116 [facility] Comment on above: Performed By: #### A LB, CRP, ALT #### [facility] [address] [place] [address] Dr. Bartolome Arita ALT [Catalytic activity/Vol] 43 U/L Normal 16-63 [facility] Comment on above: Performed By: #### A LB, CRP, ALT #### [facility] [address] [place] [address] Dr. Bartolome Arita Anion gap [Moles/Vol] 13.9 mmol/L Normal [facility] Comment on above: Performed By: #### A LB, CRP, ALT #### [facility] [address] [place] [address] Dr. Bartolome Arita AST [Catalytic activity/Vol] 34 U/L Normal 15-37 [facility] Comment on above: Performed By: #### A LB, CRP, ALT #### [facility] [address] [address] [address] Bartolome Arita Bilirubin [Mass/Vol] 0.3 mg/dL Normal 0.2-1.0 [facility] Comment on above: Performed By: #### A LB, CRP, ALT #### [facility] [address] [place] [address] Dr. Bartolome Arita Calcium [Mass/Vol] 8.5 mg/dL Normal 8.5-10.1 [facility] Comment on above: Performed By: #### A LB, CRP, ALT #### [facility] [address] [place] [address] Dr. Bartolome Arita Chloride [Moles/Vol] 103 mmol/L Normal 98-[address] [facility] Comment on above: Performed By: #### A LB, CRP, ALT #### [facility] [address] [place] [address] Dr. Bartolome Arita CO2 [Moles/Vol] 23.3 mmol/L Normal 21.0-32.0 [facility] Comment on above: Performed By: #### A LB, CRP, ALT #### [facility] [address] [place] [address] Dr. Bartolome Arita Creatinine [Mass/Vol] 1.17 mg/dL Normal 0.70-1.30 [facility] Comment on above: Performed By: #### A LB, CRP, ALT #### [facility] [address] [place] [address] Dr. Bartolome Arita EGFR-AF ERITREAN >60 Normal >=60 [facility] Comment on above: Performed By: #### A LB, CRP, ALT #### [facility] [address] [place] [address] Dr. Bartolome Arita EGFR-NON AF ERITREAN >60 Normal >=[address] [facility] Comment on above: Performed By: #### A LB, CRP, ALT #### [facility] [address] [address] [address] Bartolome Arita Globulin (S) [Mass/Vol] 3.9 g/dL Normal [facility] Comment on above: Performed By: #### A LB, CRP, ALT #### [facility] [address] [address] [address] Bartolome Arita Glucose [Mass/Vol] 129 mg/dL Critically high 74-106 [facility] Comment on above: Performed By: #### A LB, CRP, ALT #### [facility] [address] [address] [address] Bartolome Arita Potassium [Moles/Vol] 4.2 mmol/L Normal 3.5-5.1 [facility] Comment on above: Performed By: #### A LB, CRP, ALT #### [facility] [address] [place] [address] Dr. Bartolome Arita Protein [Mass/Vol] 6.8 g/dL Normal 6.4-8.2 [facility] Comment on above: Performed By: #### A LB, CRP, ALT #### [facility] [address] [address] [address] Bartolome Arita Sodium [Moles/Vol] 136 mmol/L Normal 136-145 [facility] Comment on above: Performed By: #### A LB, CRP, ALT #### [facility] [address] [address] [address] Bartolome Arita Urea nitrogen [Mass/Vol] 13.0 mg/dL Normal 7.0-18.0 [facility] Comment on above: Performed By: #### A LB, CRP, ALT #### [facility] [address] [place] [address] Dr. Bartolome Arita Urea nitrogen/Creatinine [Mass ratio] 11.1 mg/mg Normal [facility] Comment on above: Performed By: #### A LB, CRP, ALT #### [facility] [address] [place] [address] Dr. Bartolome Arita [facility] SARS-CoV-2 (COVID-19) RNA BOUCHRA+probe Ql (Unsp spec) Not detected Normal NOT DETECTED [facility] Comment on above: Result Comment: This test is not yet approved or cleared by the [place] FDA. When there are no FDA-approved or cleared tests available, and other criteria are met, FDA can make tests available under an emergency access mechanism called an Emergency Use Authorization (EUA). The EUA for this test is supported by the Print Shop Assistant of Health and Human Service's (HHS's) declaration that circumstances exist to justify the emergency use of in vitro diagnostics for the detection and/or diagnosis of the virus that causes COVID-19. This EUA will remain in effect (meaning this test can be used) for the duration of the COVID-19 declaration justifying emergency of IVDs, unless it is terminated or revoked by FDA (after which the test may no longer be used). When diagnostic testing is negative, the possibility of a false negative should be considered in the context of a patient's recent exposures and the presence of clinical signs and symptoms consistent with SARS-CoV-2. Performed By: #### A LB, CRP, ALT #### [facility] [address] [address] [address] 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) Cardiac arrest (427.5) (I46.9) ICD (implantable cardioverter-defibrillat or) in place (V45.02) (Z95.810) Benign essential hypertension (401.1) (I10) Overweight with body mass index (BMI) of 25 to 25.9 in adult (278.02,V85.21) (E66.3,Z68.25) Never a smoker Crohn's disease (555.9) (K50.90) Orders Overweight with body mass index (BMI) of 25 to 25.9 in adult Healthy Weight Tips; Status:Complete - Retrospective Authorization; Done: 11May2021 SocHx: Never a smoker Tobacco Use Screening; Status:Complete; Done: 11May2021 Patient Instructions By signing my name below, IShahana LPN ,Carmine, attest that this documentation has been prepared under the direction and in the presence of Dr. Eloise Culver MD. All medical record entries made by the Evelioibe were at my direction and personally dictated by me. I have reviewed the chart and agree that the record accurately reflects my personal performance of the history, physical exam, discussion and plan. Please bring all medicines, vitamins, and herbal supplements with you when you come to the office. Prescriptions will not be filled unless you are compliant with your follow up appointments or have a follow up appointment scheduled as per instruction of your physician. Refills should be requested at the time of your visit. Follow up in 6-9 months Keep device checks as scheduled Chief Complaint JOSÉ MIGUEL CARRENO is being seen for a 9 month follow-up of. History of Present Illness Patient returns for follow-up of problems as noted. In interim he is done well. Has had no arrhythmia symptomatology. Blood pressures well controlled today's denying any exercise and/or activity associated chest discomfort, dyspnea, or arrhythmia symptomatology. Device checks are reviewed and they demonstrate episodes of supraventricular tachycardia with rates in the 150-170 range. We note also that the reports do not demonstrate the therapeutic algorithm for malignant tachyarrhythmias and after his departure I contacted the pacemaker clinic to asked him to update his record and render a more comprehensive and detailed report demonstrating not only bradycardia arrhythmia therapies but tachyarrhythmia therapies as well. We discussed in answered a variety of other questions regarding his management of pharmacologic therapy. Additionally we reviewed, after his departure, the risk profile of his immunosuppressive therapy we believe it to be of no significant cardiac risk to him in particular. Surgical History Problems History of Abdominal surgery x7 History of Back surgery History of Colonoscopy 2020 History of Sinus surgery Current Meds Medication NameInstruction amLODIPine Besylate 10 MG Oral TabletTAKE 1 TABLET DAILY. Cyanocobalamin SOLNMonthly Injection. Folic Acid TABSTAKE 1 TABLET DAILY DIRECTED. Lisinopril 20 MG Oral TabletTAKE 1 TABLET DAILY. Mag-Ox 400 400 MG TABSTAKE 1 TABLET DAILY. Methotrexate TABSTAKE 1 25MG TABLET WEEKLY. Metoprolol Succinate ER 25 MG Oral Tablet Extended Release 24 Hour1/2 tablet daily. Potassium Chloride ER 20 MEQ Oral Tablet Extended ReleaseTake 1 tablet daily Rinvoq 15 MG Oral Tablet Extended Release 24 HourTake 1 tablet daily Allergies Medication Imuran Recorded By: Parul Baires; 02/24/2021 2:16:22 PM Social History Problems Consumes alcohol occasionally (V49.89) (Z78.9) rare Never a smoker No illicit drug use Occasional caffeine consumption soda rare Review of Systems Constitutional: not feeling tired. Eyes: no eyesight problems. ENT: no hearing loss and no nosebleeds. Cardiovascular: no intermittent leg claudication and as noted in HPI. Respiratory: no chronic cough and no shortness of breath. Gastrointestinal: no change in bowel habits and no blood in stools. Genitourinary: no urinary frequency and no hematuria. Skin: no skin rashes. Neurological: no seizures and no frequent falls. Psychiatric: no depression and not suicidal. All other systems have been reviewed and are negative for complaint. Vitals Vital Signs Recorded: 11May2021 11:21AM Heart Rate79, L Brachial Artery Kqbygast051, LUE, Sitting Hfkjgalil09, LUE, Sitting Height6 ft 4 in Hpggdb158 lb BMI Spvjegylhr45.32 kg/m2 BSA Calculated2.25 Tobacco Useb) No PHQ-2 #1. Over the last 2 weeks have you felt down, depressed or hopeless? (If yes, answer PHQ-9 below)No PHQ-2 #2. Over the last 2 weeks have you felt little interest or pleasure in doing things? (If yes, answer PHQ-9 below)No Physical Exam Constitutional: alert and in no acute distress. Eyes: no erythema, swelling or discharge from the eye . Neck: neck is supple, symmetric, trachea midline, no masses and no thyromegaly . Pulmonary: no increased work of breathing or signs of respiratory distress and lungs clear to auscultation. Cardiovascular: carotid pulses 2+ bilaterally with no bruit , JVP was americo (more content not included)... Normal [employer] Tobacco Screening.on 022 Adult depression screening assessment No -Merged with [facility] 250 DO Work Phone: Tobacco use status [facility] b) No M [facility] 250 DO Work Phone: MAGNESIUM BLOODon 01-10-2020 Magnesium [Mass/Vol] 1.8 mg/dL Low 1.9-2.7 [facility] Comment on above: Order Comment: No: D o not add to previous draw Performed By: #### 3 1240 #### [facility] [address] [facility] [place], [place] [id number] [place] [address] POTASSIUM BLOODon 01-10-2020 Potassium [Moles/Vol] 3.6 mmol/L Normal 3.5-5.1 [facility] Comment on above: Order Comment: No: D o not add to previous draw Performed By: #### 3 5200 #### [facility] [address] [facility] UFH HEPARIN ASSAYon 01-10-20 20 UNFRACTIONATED HEPARIN <0.10 Critically low 0.30-0.70 [facility] Comment on above: Result Comment: Denisse roxaban and Apixaban will interfere with the anti Xa assay used to monitor UFH and LMWH. RESULTS CHECKED AND CALLED. ACCURATELY READ BACK BY WILFREDO GALO RN AT 07:26 Performed By: #### 4 1406 #### [facility] [address] CHEST AND LATERALon 01-09-20 20 CHEST AND LATERAL [facility] Department of Radiology [address] [place] [id number] == Patient Name: JOSÉ MIGUEL CARRENO : 1960 Sex: M Age: Race: White Pt. Location: [address] [place] [address] Patient Status: I Ordered Date: 01/09/2020 6:00:00 PM Completed Date: 01/09/2020 09:37 PM Requesting Provider: KEVIN BOUDREAUX Attending Provider: PRISCILLA QUIROZ Report Copy To: Signs & Symptoms: Post OP History: See Comments Comments: Check Pacemaker/AICD Lead Position, AROUND 9 PM Exam: CHEST AND LATERAL == CHEST AND LATERAL 01/09/2020 9:37 PM CLINICAL INDICATIONS: Post OP TECHNOLOGIST COMMENTS: post op , Check Pacemaker/AICD Lead Position QUESTION FOR THE RADIOLOGIST: Check Pacemaker/AICD Lead Position, AROUND 9 PM PROTOCOL: AP(PA) and Lateral views were obtained. COMPARISON: 01/06/2020 FINDINGS: There has been interval placement of a single lead AICD for the left with its lead intact and appear to be in good position. No pneumothorax is seen. The chest shows no evidence for active cardiovascular pulmonary disease. IMPRESSION: Normal chest status post AICD placement. Electronically signed: Phi Steel. Transcribed by: [email or web address], User Resident: Electronically Signed by: PHI STEEL @ 01/09/2020 09:46 PM Normal [facility] Comment on above: Order Comment: No: D o not add to previous draw Cardiovascular Lab Reporton 01-09-2020 Cardiovascular Lab Report [id number] Physician: Erwin Jackson MD Department of Service Date: 01/09/2020 Medicine Birthdate: 1960 Division of Room #: 3AB [id number] Cardiology Adult Cardiovascular Services [address] [place] [address] Cardiovascular Laboratory Report SINGLE CHAMBER ICD IMPLANT DFT PROCEDURE NOTE DATE OF PROCEDURE: 01/09/2020 PERFORMING PHYSICIAN: Dr. Erwin Jackson CONSENT: Patient LOCATION: EP Lab PROCEDURE PERFORMED: 1. Implantation of single coil ICD (Biotronik) INDICATIONS: 1. Cardiac arrest s/p ICD for secodary prevention. PROCEDURAL SEDATION: Versed and Fentanyl. Moderate sedation was administered by the sedation nurse under my supervision and noted in the CVL log. Intraprocedural face to face sedation time:53 min. Monitoring: Cardiac telemetry, Blood pressure, continuous pulse oxymetry. FLUROSCOPY: 1.9min/6mGray PREPARATION: Patient was brought to the EP lab in the post absorptive state. A procedural pause was performed identifying the patient, the procedure to be performed and the site of implant. The left chest was prepped and draped in the usual sterile fashion. Preoperative antibiotics IV Ancef+Vancomycin was administered. PROCEDURAL DETAILS: Patient was placed in trendelenberg position and ultrasound was used to analyze the course of the vessel. Left axillary venous access was obtained using modified seldinger technique with ultrasound guidance using a 5 Greek micropunture needle. A 0.032 guidewire was passed into the RA. Local infiltration of 1% Lidocaine was performed and an incision was created in the left upper chest. Dissection was then performed using cautery down to the fascial plane above the muscle. Lidocaine was injected subcutaneously and a device pocket was created overlying the muscle and hemostasis was secured. 8 Greek Safe sheath was placed over the wire. An active fixation Biotronik DX ICD lead was then delivered through the sheath to the right ventricle. After confirmation of lead position on orthogonal views (TOTH and YAKUT) to confirm septal position, the screw was activated, and the lead was placed in the right ventricular mid cavity towards the septum. After confirmation of good sensing parameters,injury pattern and pacing thresholds, 10V pacing was done and no diaphragmatic stimulation was noted. It was then secured in the pocket using two 1-0 silk sutures. A Biotronik ICD was then burped with a socket wrench and the atrial and ICD leads subsequently attached until they were visibly past the header venus with secure positioning confirmed with tug testing. Pocket hemostasis was secured and irrigated with antibiotics solution. The leads were wrapped under the device and then placed in the pocket and the device was tacked to the underlying muscle with 1-0 Ethibond. The pocket was closed in 3 layers: subcutaneous and skin layer using 2-0 Vicryl. Glue was applied and Telfa dressing was placed on top. Lead parameters were then rechecked through the device as noted below. Following sedation, the patient was put into PMVT using a shock on T wave. Device detected this with no drop outs and defebrillated to SR with 25J. Device info as noted below. He was then returned to the hospital room for post procedural observation. No immediate procedural complications were noted. Device info: Biotronik Acticor VR-T DX DF4 Serial#: [id number] ICD lead: Plexa ProMRI DX 65/15 Serial#: [id number] Sensin.9mV Threshold:0.5V@0.4ms Impedance: 558Ohms, HV 72Ohms RA lead Serial# [id number] Sensin.8mV POST PROCEDURE EXAM: Patient was hemodynamically stable. COMPLICATIONS: None. ESTIMATED BLOOD LOSS: 10cc IMPRESSION: 1. Successful single coil Biotronik ICD implantation with excellent pacing and sensing parameters. 2. Successful DFT testing. RECOMMENDATIONS: 1. Dressing to be removed after 2 weeks. 2. Do not wet the incision for 2 weeks. 3. No lifting heavy weights using arm on the same side. 4. Do not lift elbow above the shoulder on the same side for 4-6 weeks. 5. No driving for 1 month. 6. F/u in device clinic 2 week from discharge or sooner for any concerns. Erwin Jackson MD Cardiac Electrophysiology Electronically Signed by: Erwin Jackson MD 01/09/2020 05:39 P Erwin Jackson MD Date Dict: 01/09/2020/04:18 P/Erwin Jackson MD Date Trans: 01/09/2020 04:32 P/enzo [id number]_[id number] Normal [facility] MAGNESIUM BLOODon 01-09-2020 Magnesium [Mass/Vol] 1.6 mg/dL Low 1.9-2.7 [facility] Comment on above: Order Comment: Unkno wn Performed By: #### 0 0071, [id number] #### [facility] [address] [place] [address], [facility] POTASSIUM BLOODon 01-09-2020 Potassium [Moles/Vol] 3.5 mmol/L Normal 3.5-5.1 [facility] Comment on above: Order Comment: No: D o not add to previous draw Performed By: #### 4 1406 #### [facility] [address] [place] [address], [facility] Potassium [Moles/Vol] 3.4 mmol/L Low 3.5-5.1 [facility] Comment on above: Order Comment: Unkno wn Performed By: #### 0 0071, [id number] #### [facility] [address] [facility] UFH HEPARIN ASSAYon 01-09-20 20 UNFRACTIONATED HEPARIN <0.10 Critically low 0.30-0.70 [facility] Comment on above: Result Comment: Denisse roxaban and Apixaban will interfere with the anti Xa assay used to monitor UFH and LMWH. RESULTS CHECKED AND CALLED. ACCURATELY READ BACK BY OLY GOEL RN AT 07:04 Performed By: #### 0 0071, [id number] #### [facility] [address] MRI CARDIAC W WO CONTRASTon 01-08-2020 MRI CARDIAC W WO CONTRAST [facility] Department of Radiology [address] [place] [address] == Patient Name: JOSÉ MIGUEL CARRENO : 1960 Sex: M Age: Race: White Pt. Location: [address] [place] [address] Patient Status: I Ordered Date: 01/08/2020 11:55:00 AM Completed Date: 01/08/2020 01:20 PM Requesting Provider: KEVIN BOUDREAUX Attending Provider: PRISCILLA QUIROZ Report Copy To: Signs & Symptoms: Abnormal Heart Rate History: Comments: ARVD-Arrhythmic Ventric. Displasia, cardiac mri with /with out contrast for cardiac myocarditis Exam: MRI CARDIAC W WO CONTRAST == MRI CARDIAC W WO CONTRAST 01/08/2020 1:20 PM CLINICAL INDICATIONS: Abnormal Heart Rate arrhythmogenic right ventricular cardiomyopathy, nonischemic cardiomyopathy TECHNOLOGIST COMMENTS: pt states he is in V-fib QUESTIONS PER RADIOLOGIST: ARVD-Arrhythmic Ventric. Displasia, cardiac mri with /with out contrast for cardiac myocarditis PROTOCOL: Additional images were performed in the following sequences: CONTRAST: Contrast: DOTAREM .5mmol, 20 milliliter, Intravenous COMPARISON: None. TECHNIQUE: Multiplanar multisequence gated cardiac MRI was performed with steady state free precession imaging and pre- and postcontrast delayed myocardial enhancement views obtained prior to and following the uneventful administration of Dotarem intravenous gadolinium contrast. FINDINGS: Left jugular systolic function of the lower limits of normal ranging 45-50%. No focal wall motion abnormalities identified. Left ventricular quantitative parameters as follows: Ejection Fraction 45-50% (normal: male = 56-78%; female = 56-78%). End Diastolic Diameter is 44 mm (normal: 36-56-mm). Stroke Volume 41 mL. End Diastolic Volume 96 mL (normal: male = 77-195 ml; female = 52-141 ml). End Systolic Volume 56 mL (normal: male = 19 - 72 ml, female = 13-51 ml). Anteroseptal wall thickness: 1.5 cm. Posterolateral wall thickness: 0.9 cm. No evidence of delayed myocardial enhancement or evidence of myocardial scarring or fibrosis. Mild central predominant left ventricular hypertrophy without evidence to suggest systolic anterior motion of the anterior mitral valve leaflet. Left atrium is mildly dilated measuring 4.7 cm. Mild mitral regurgitation. Right atrium is mildly dilated. There is mild tricuspid regurgitation. Mild right ventricular dilatation may be present. No evidence of fibrofatty infiltration of the right ventricular wall. Normal right ventricular wall motion. Mild prominence of the trabeculation of the right ventricle noted. Trace pericardial effusion. No pleural effusion. The ascending aorta is mildly dilated measuring approximately 4.1 cm at the aortic sinus. 3 vessel aortic arch. Mild dilatation of the pulmonary artery measuring 3.5 cm could be seen with pulmonary hypertension.. Extracardiac Findings: Left hepatic hyperintense T2-weighted lesion most likely related to a small cyst or hemangioma measuring 1.6 cm. Small thoracic vertebral body hemangioma. Impression: 1. No MRI soft tissue findings to suggest arrhythmogenic right ventricular cardiomyopathy. 2. Mildly diminished left ventricular systolic function with mild septal predominant left ventricular hypertrophy. Electronically signed: Edgardo Bedoya. Transcribed by: [email or web address], User Resident: Electronically Signed by: EDGARDO BEDOYA @ 01/09/2020 12:23 PM Normal [facility] Comment on above: Order Comment: Unkno wn UFH HEPARIN ASSAYon 01-08-20 20 UNFRACTIONATED HEPARIN <0.10 Critically low 0.30-0.70 [facility] Comment on above: Result Comment: Denisse roxaban and Apixaban will interfere with the anti Xa assay used to monitor UFH and LMWH. RESULTS CHECKED AND CALLED. ACCURATELY READ BACK BY LILY TEIXEIRA RN AT 07:34 PATIENT NO LONGER ON HEPARIN PER RN Performed By: #### 4 1406 #### [facility] [address] [facility]. [address] *SARS-CoV-2 COVID-19on 01-06 Clinical Report Normal [facility] Comment on above: Result Comment: Spec imen: OROPHARYNGEAL Collected: 01/07/2020 16:00 Status: Final Last Updated: 01/07/2020 20:31 COVID-19 (Final) Not Detected The [employer] SARS-CoV-2 assay is a real-time (rt) reverse transcriptase (RT) polymerase chain reaction (PCR) test intended for the [employer] system. The SARS-CoV-2 primer and probe sets are designed to detect RNA from SARS-CoV-2 in a nasopharyngeal (INSPECTOR OPEN DIE) or oropharyngeal (OP) swab from patients with signs and symptoms of infection who are suspected of COVID-19. Results are for the identification of SARS-CoV-2 RNA. The SARS-CoV-2 RNA is generally detectable in a nasopharyngeal or oropharyngeal swab during the acute phase of infection. The [employer] SARS-CoV-2 assay is intended for use by qualified and trained clinical laboratory personnel specifically instructed and trained in the techniques of real-time PCR and in vitro diagnostic procedures. The [employer] SARS-CoV-2 assay is only for use under the Food and Drug Administration Emergency Use Authorization. Testing is limited to laboratories certified under the Clinical Laboratory Improvement Amendments of 1988 (CLIA), 42 U.S.C. 263a, to perform high complexity tests. Performed By: #### 0 0071, [id number] #### [facility] [address] [place] [address], [facility] BASIC METABOLIC PANELon 10-2 Calcium [Mass/Vol] 7.9 mg/dL Low 8.6-10.3 [facility] Comment on above: Order Comment: Unkno wn Performed By: #### 0 0071, 40800 #### [facility] [address] [place] [address], [place] Chloride [Moles/Vol] 108 mmol/L High 98-107 [facility] Comment on above: Order Comment: Unkno wn Performed By: #### 0 0071, 46544 #### [facility] [address] [place] [address], [place] CO2 [Moles/Vol] 25 mmol/L Normal 21-31 [facility] Comment on above: Order Comment: Unkno wn Performed By: #### 0 0071, 95399 #### [facility] [address] [place] [address], [place] Creatinine [Mass/Vol] 0.98 mg/dL Normal 0.70-1.30 [facility] Comment on above: Order Comment: Unkno wn Performed By: #### 0 0071, 56535 #### [facility] [address] [place] [address], [place] GFR/1.73 sq M predicted among blacks MDRD (S/P/Bld) [Vol rate/Area] mL/min/{1.73_m2} Normal >60 [facility] Comment on above: Order Comment: Unkno wn Performed By: #### 0 0071, 65466 #### [facility] [address] [place] [address], [place] GFR/1.73 sq M predicted among non-blacks MDRD (S/P/Bld) [Vol rate/Area] mL/min/{1.73_m2} Normal >60 [facility] Comment on above: Order Comment: Unkno wn Performed By: #### 0 0071, 91887 #### [facility] [address] [place] [address], [facility] Glucose [Mass/Vol] 110 mg/dL High 70-100 [facility] Comment on above: Order Comment: Unkno wn Performed By: #### 0 0071, 61451 #### [facility] [address] [place] [address], [facility] Potassium [Moles/Vol] 3.4 mmol/L Low 3.5-5.1 [facility] Comment on above: Order Comment: Unkno wn Performed By: #### 0 0071, 38281 #### [facility] [address] [place] [address], [facility] Sodium [Moles/Vol] 139 mmol/L Normal 136-145 [facility] Comment on above: Order Comment: Unkno wn Performed By: #### 0 0071, 77672 #### [facility] [address] [place] [address], [facility] Urea nitrogen [Mass/Vol] 6 mg/dL Low 7-25 [facility] Comment on above: Order Comment: Unkno wn Performed By: #### 0 0071, 16192 #### [facility] [address] [place] [address], [facility] CBC COMPLETE BLOOD COUNTon Erythrocyte distribution width (RBC) [Ratio] 14.0 % Normal 11.5-15.0 [facility] Comment on above: Order Comment: Unkno wn Performed By: #### 0 0071, 27540 #### [facility] [address] [place] [id number], [facility] Hematocrit (Bld) [Volume fraction] 34.8 % Low 39.0-50.0 [facility] Comment on above: Order Comment: Unkno wn Performed By: #### 0 0071, 35181 #### [facility] [address] [place] [address], [facility] Hemoglobin (Bld) [Mass/Vol] 11.7 g/dL Low 13.0-17.0 [facility] Comment on above: Order Comment: Unkno wn Performed By: #### 0 0071, 62873 #### [facility] [address] [place] [address], [facility] MCH (RBC) [Entitic mass] 28.9 pg Normal 27.0-33.0 [facility] Comment on above: Order Comment: Unkno wn Performed By: #### 0 0071, 67236 #### [facility] [address] [place] [address], [facility] MCHC (RBC) [Mass/Vol] 33.6 g/dL Normal 32.0-35.0 [facility] Comment on above: Order Comment: Unkno wn Performed By: #### 0 0071, 55905 #### [facility] [address] [place] [address], [facility] MCV (RBC) [Entitic vol] 85.9 fL Normal 82.0-98.[address] [facility] Comment on above: Order Comment: Unkno wn Performed By: #### 0 0071, 72810 #### [facility] [address] [place] [address], [facility] Nucleated RBC/100 WBC (Bld) [Ratio] 0 % Normal 0-0 [facility] Comment on above: Order Comment: Unkno wn Performed By: #### 0 0071, 36259 #### [facility] [address] [place] [address], [facility] PLAT CNT 170 10*3/uL Normal 150-400 [facility] Comment on above: Order Comment: Unkno wn Performed By: #### 0 0071, 20862 #### [facility] [address] [place] [address], [facility] RBC (Bld) [#/Vol] 4.05 10*6/uL Low 4.20-5.70 [facility] Comment on above: Order Comment: Unkno wn Performed By: #### 0 0071, 48141 #### [facility] [address] [place] [address], [facility] WBC (Bld) [#/Vol] 6.04 10*3/uL Normal 4.00-10.60 [facility] Comment on above: Order Comment: Unkno wn Performed By: #### 0 0071, 85731 #### [facility] [address] [place] [address], [facility] CT CHEST W CONTRASTon 2019 CT CHEST W CONTRAST [facility] Department of Radiology [address] [place] [id number] == Patient Name: JOSÉ MIGUEL CARRENO : 1960 Sex: M Age: Race: White Pt. Location: [address] [place] [address] Patient Status: I Ordered Date: 01/07/2020 11:50:00 AM Completed Date: 01/07/2020 01:20 PM Requesting Provider: KEVIN BOUDREAUX Attending Provider: PRISCILLA QUIROZ Report Copy To: Signs & Symptoms: Infiltrates History: See Comments Comments: Infiltrates, sespis; fever; SOB Exam: CT CHEST W CONTRAST == CT CHEST W CONTRAST 01/07/2020 1:20 PM CLINICAL INDICATIONS: Infiltrates TECHNOLOGIST COMMENTS: pt with fever, SOB with decreased O2 sats. S/p - cath procedure QUESTION FOR THE RADIOLOGIST: Infiltrates, sespis; fever; SOB PROTOCOL: Axial CT images of the chest were obtained with IV contrast. CONTRAST: Contrast: OMNIPAQUE 350 (LOCM), 100 milliliter, Intravenous TECHNIQUE: Multiple detector CT axial slices of the chest were obtained with IV contrast. Multiplanar reformats were performed and viewed on a separate workstation and reviewed to further define anatomy and possible pathology. COMPARISON: None. FINDINGS: The thyroid and the thoracic inlet appear unremarkable. The central airways are patent. The thoracic aorta is without aneurysm or dissection. The pulmonary arteries appear normal in caliber, without evidence for aneurysm. Minimal coronary artery calcification, no cardiomegaly or pericardial effusion. No mediastinal adenopathy or hematoma. No pneumothorax, pleural effusion or pleural calcification. Linear scarring present in both lower lobes. Pulmonary nodularity identified. The chest wall appears unremarkable. The study continued in the upper abdomen shows no additional abnormality. The study viewed at bone window reveals the presence of a hemangioma in the body of T9. IMPRESSION: Linear scarring present in both lower lobes. No evidence of pulmonary embolus or olga pneumonia. All CT scans at this facility use dose modulation, iterative reconstruction, and/or weight based dosing when appropriate to reduce radiation dose to as low as reasonably achievable Electronically signed: Ollie Gonsalves. Transcribed by: [email or web address], User Resident: Electronically Signed by: OLLIE GONSALVES @ 01/07/2020 02:05 PM Normal [facility] Comment on above: Order Comment: No: D o not add to previous draw Cardiovascular Lab Reporton 01-07-2020 Cardiovascular Lab Report [facility] Patient Name: José Miguel Carreno Jr MR #: [id number] [facility] Physician: Edmond Cook M.D. Department of Service Date: 01/07/2020 Medicine Birthdate: 1960 Division of Room #: 3AB [id number] Cardiology Adult Cardiovascular Services [place] [address] Cardiovascular Laboratory Report INDICATION: The patient is a 59-year-old man who was admitted with an infectious syndrome and while at the emergency room in [facility] undergoing blood draw, he had a cardiac arrest that was reported to be ventricular fibrillation arrest. He was resuscitated and regained consciousness and normal rhythm. He was transferred to our institution. He had minimal elevation of troponin and was referred for cardiac catheterization for further investigation. PROCEDURES: 1. Bilateral selective coronary angiography. 2. Limited right common femoral angiography. METHODS: Procedure was explained to the patient with risks and benefits. He signed informed consent. He was brought to biological lab technician in a fasting state. The right groin area was prepped and draped in usual fashion. Using micropuncture technique, the right common femoral artery was accessed. The inner cannula was advanced. Limited right common femoral angiography was performed followed by upsizing to a 5-Greek x 11 cm sheath. Bilateral selective coronary angiography was then performed using 5-Greek JL4 and JR4 diagnostic catheters. Catheters were removed. Procedure was concluded. Manual compression was applied for hemostasis. He tolerated the procedure well. He was transferred back to his room. TOTAL FLUORO TIME: 2.0 minutes. TOTAL AIR KERMA: 302 mGy. TOTAL CURRENT VOLUME: 30 mL. HEMODYNAMICS: AO 149/83, mean 108. CORONARY ANGIOGRAPHY: This is a right dominant circulation. Left main: This arises from left coronary cusp. It bifurcates into left anterior descending and circumflex vessels. Left main is angiographically normal. Left anterior descending: This is angiographically normal. Circumflex vessel: This is angiographically normal. Right coronary artery: This arises from the right coronary cusp. It is a large and dominant vessel. It is angiographically normal. Limited right common femoral angiography: This showed access to be in the right common femoral artery with no obstructive lesions noted in the femoral artery or its proximal branches. SUMMARY OF THE FINDINGS: Normal coronary angiogram. RECOMMENDATIONS: 1. Risk factor control. 2. Further investigation and management of this patient's history of ventricular fibrillation. Electronically Signed by: Edmond Cook M.D. 01/12/2020 10:32 P Edmond Cook M.D. Date Dict: 01/07/2020/12:40 P/Edmond Cook M.D. Date Trans: 01/07/2020 01:13 P/mmo [id number] Normal [facility] MAGNESIUM BLOODon 01-07-2020 Magnesium [Mass/Vol] 1.6 mg/dL Low 1.9-2.7 [facility] Comment on above: Order Comment: Aimeeo wn Performed By: #### 0 0071, 40746 #### [facility] [address] [facility] UFH HEPARIN ASSAYon 01-07-20 20 UNFRACTIONATED HEPARIN 0.35 IU/mL Normal 0.30-0.70 [facility] Comment on above: Result Comment: Denisse roxaban and Apixaban will interfere with the anti Xa assay used to monitor UFH and LMWH. Performed By: #### 3 5200 #### [facility] [address] UNFRACTIONATED HEPARIN 0.30 IU/mL Normal 0.30-0.70 [facility] Comment on above: Result Comment: Denisse roxaban and Apixaban will interfere with the anti Xa assay used to monitor UFH and LMWH. Performed By: #### 4 1406 #### [facility] [address] [facility]. [address] UNFRACTIONATED HEPARIN 0.21 IU/mL Low 0.30-0.70 [facility] Comment on above: Result Comment: [place] roxaban and Apixaban will interfere with the anti Xa assay used to monitor UFH and LMWH. Performed By: #### 3 5200 #### [facility] [address] [place] [address], [facility] *BLOOD CULTUREon 01-06-2020 Bacteria identified Cx Nom (Bld) Clinical Report: (D) Specimen: BLOOD CULTURE Collected: 01/06/2020 00:41 Status: Final Last Updated: 01/11/2020 06:13 CULT RES (Final) No Growth Day 5 Normal [facility] Comment on above: Performed By: #### 0 0071, 59241 #### [facility] [address] *SARS-CoV-2 COVID-19on 01-05 [id number] Not Detected Normal Not Detected [facility] Comment on above: Order Comment: No: D o not add to previous draw Performed By: #### 4 1406 #### [facility] [address] [place] [address], [facility] APTTon 01-06-2020 aPTT Coag (Bld) [Time] 37.7 s High 25.0-35.0 [facility] Comment on above: Order Comment: No: D o not add to previous draw Result Comment: ALL RESULTS MUST BE INTERPRETED WITH RESPECT TO BLOOD DRAWING ARTIFACT OR DILUTION ERROR OF ANTICOAGULANT AT THE TIME OF SAMPLING. THE APTT SHOULD NOT BE USED TO MONITOR UNFRACTIONATED HEPARIN THERAPY, THIS LABORATORY NO LONGER HAS AN ESTABLISHED THERAPEUTIC RANGE BASED ON THE APTT. IT IS RECOMMENDED THAT THE UFH - HEPARIN ASSAY (ANTI-XA ACTIVITY) BE USED FOR THIS PURPOSE. Performed By: #### 3 5200 #### [facility] [address] [facility] [address] BASIC METABOLIC PANELon 12-12 Calcium [Mass/Vol] 8.1 mg/dL Low 8.6-10.3 [facility] Comment on above: Order Comment: No: D o not add to previous draw Performed By: #### 0 0071, 48950, 23946 #### [facility] [address] [place] [address], [facility] Chloride [Moles/Vol] 108 mmol/L High 98-107 [facility] Comment on above: Order Comment: No: D o not add to previous draw Performed By: #### 0 0071, 34580, 72552 #### [facility] [address] [place] [address], [facility] CO2 [Moles/Vol] 22 mmol/L Normal 21-31 [facility] Comment on above: Order Comment: No: D o not add to previous draw Performed By: #### 0 0071, 89663, 13649 #### [facility] [address] [place] [address], [place] Creatinine [Mass/Vol] 1.09 mg/dL Normal 0.70-1.30 [facility] Comment on above: Order Comment: No: D o not add to previous draw Performed By: #### 0 0071, 62793, 86668 #### [facility] [address] [place] [address], [place] GFR/1.73 sq M predicted among blacks MDRD (S/P/Bld) [Vol rate/Area] mL/min/{1.73_m2} Normal >60 [facility] Comment on above: Order Comment: No: D o not add to previous draw Performed By: #### 0 0071, 28466, 20822 #### [facility] [address] [place] [address], [place] GFR/1.73 sq M predicted among non-blacks MDRD (S/P/Bld) [Vol rate/Area] mL/min/{1.73_m2} Normal >60 [facility] Comment on above: Order Comment: No: D o not add to previous draw Performed By: #### 0 0071, 14357, 32971 #### [facility] [address] [place] [address], [place] Glucose [Mass/Vol] 94 mg/dL Normal 70-100 [facility] Comment on above: Order Comment: No: D o not add to previous draw Performed By: #### 0 0071, 66430, 30087 #### [facility] [address] [place] [address], [place] Potassium [Moles/Vol] 3.5 mmol/L Normal 3.5-5.1 [facility] Comment on above: Order Comment: No: D o not add to previous draw Performed By: #### 0 0071, 36389, 08682 #### [facility] [address] [place] [address], [facility] Sodium [Moles/Vol] 139 mmol/L Normal 136-145 [facility] Comment on above: Order Comment: No: D o not add to previous draw Performed By: #### 0 0071, 94195, 25740 #### [facility] [address] [place] [address], [facility] Urea nitrogen [Mass/Vol] 8 mg/dL Normal 7-25 [facility] Comment on above: Order Comment: No: D o not add to previous draw Performed By: #### 0 0071, 92681, 66471 #### [facility] [address] [place] [address], [facility] C REACTIVE PROTEINon 020 CRP [Mass/Vol] 92.6 mg/L High 0.0-7.0 [facility] Comment on above: Order Comment: Unkno wn Performed By: #### 0 0071, 94186 #### [facility] [address] [place] [address], [facility] CBC W/DIFFon 01-06-2020 ABS BASOPHILS 0.1 10*3/uL Normal 0.0-0.2 [facility] Comment on above: Performed By: #### 4 1406 #### [facility] [address] [place] [address], [facility] ABS IMM GRANS 0.0 10*3/uL Normal 0.0-0.2 [facility] Comment on above: Performed By: #### 4 1406 #### [facility] [address] [place] [address], [facility] ABS NEUTROPHILS 5.8 10*3/uL Normal 1.6-7.6 [facility] Comment on above: Performed By: #### 4 1406 #### [facility] [address] [place] [address], [facility] Basophils/100 WBC (Bld) 1.0 % Normal 0.0-1.0 [facility] Comment on above: Performed By: #### 4 1406 #### [facility] [address] [facility] [place] [address], [facility] Eosinophils (Bld) [#/Vol] 0.0 10*3/uL Normal 0.0-0.5 [facility] Comment on above: Performed By: #### 4 1406 #### [facility] [address] [place] [address], [facility] Eosinophils/100 WBC (Bld) 0.5 % Normal 0.0-6.0 [facility] Comment on above: Performed By: #### 4 1406 #### [facility] [address] Erythrocyte distribution width (RBC) [Ratio] 14.1 % Normal 11.5-15.0 [facility] Comment on above: Performed By: #### 4 1406 #### [facility] [address] Hematocrit (Bld) [Volume fraction] 39.4 % Normal 39.0-50.0 [facility] Comment on above: Performed By: #### 4 1406 #### [facility] [address] Hemoglobin (Bld) [Mass/Vol] 13.3 g/dL Normal 13.0-17.0 [facility] Comment on above: Performed By: #### 4 1406 #### [facility] [address] IMMATURE GRANS 0.5 % Normal 0.0-1.0 [facility] Comment on above: Performed By: #### 4 1406 #### [facility] [address] [place] [address], [facility] Lymphocytes (Bld) [#/Vol] 0.8 10*3/uL Low 1.2-4.0 [facility] Comment on above: Performed By: #### 4 1406 #### [facility] [address] [place] [address], [facility] Lymphocytes/100 WBC (Bld) 10.6 % Low 20.0-45.0 [facility] Comment on above: Performed By: #### 4 1406 #### [facility] [address] [place] [address], [facility] MCH (RBC) [Entitic mass] 29.1 pg Normal 27.0-33.0 [facility] Comment on above: Performed By: #### 4 1406 #### [facility] [address] [place] [address], [facility] MCHC (RBC) [Mass/Vol] 33.8 g/dL Normal 32.0-35.0 [facility] Comment on above: Performed By: #### 4 1406 #### [facility] [address] [place] [address], [facility] MCV (RBC) [Entitic vol] 86.2 fL Normal 82.0-98.0 [facility] Comment on above: Performed By: #### 4 1406 #### [facility] [address] [place] [address], [facility] Monocytes (Bld) [#/Vol] 0.6 10*3/uL Normal 0.1-1.0 [facility] Comment on above: Performed By: #### 4 1406 #### [facility] [address] [place] [address], [facility] MONOS 8.6 % Normal 5.0-12.0 [facility] Comment on above: Performed By: #### 4 1406 #### [facility] [address] [place] [address], [facility] Neutrophils/100 WBC (Bld) 78.8 % High 40.0-72.0 [facility] Comment on above: Performed By: #### 4 1406 #### [facility] [address] [facility] Nucleated RBC/100 WBC (Bld) [Ratio] 0 % Normal 0-0 [facility] Comment on above: Performed By: #### 4 1406 #### [facility] [address] [place] [address], [facility] PLAT CNT 179 10*3/uL Normal 150-400 [facility] Comment on above: Performed By: #### 4 1406 #### [facility] [address] [place] [address], [facility] RBC (Bld) [#/Vol] 4.57 10*6/uL Normal 4.20-5.70 [facility] Comment on above: Performed By: #### 4 1406 #### [facility] [address] [place] [address], [facility] WBC (Bld) [#/Vol] 7.33 10*3/uL Normal 4.00-10.60 [facility] Comment on above: Performed By: #### 4 1406 #### [facility] [address] D DIMER TESTon 01-06-2020 D-DIMER TEST 2.07 mcg/mL FEU High 0.27-0.49 [facility] Comment on above: Order Comment: No: D o not add to previous draw Result Comment: D-Di kylie values of less than 0.50 ug/ml (FEU) are considered to be a negative predictor of thrombosis. However, the D-Dimer result should be used in conjunction with pretest probability and should not be used alone to diagnose a thrombotic event. Performed By: #### 3 5200 #### [facility] [address] [place] [address], [facility] FERRITINon 01-06-2020 Ferritin [Mass/Vol] 302 ng/mL Normal 24-336 [facility] Comment on above: Order Comment: Yes: Add to Previous draw if able Performed By: #### 8 4045, 08630, 56356 #### [address] LDH BLOODon 01-06-2020 LDH 247 Units/L Normal 140-271 [facility] Comment on above: Order Comment: Yes: Add to Previous draw if able Performed By: #### 8 4045, 11552, 72205 #### [address] MAGNESIUM BLOODon 01-06-2020 Magnesium [Mass/Vol] 1.4 mg/dL Low 1.9-2.7 [facility] Comment on above: Performed By: #### 0 0071, 39060, 88104 #### [address] PORTABLE CHEST 1 VIEWon 12-12 PORTABLE CHEST 1 VIEW [facility] Department of Radiology [address] [place], [place] [id number] == Patient Name: JOSÉ MIGUEL CARRENO : 1960 Sex: M Age: Race: NA Pt. Location: [id number] Patient Status: I Ordered Date: 01/06/2020 12:30:00 AM Completed Date: 01/06/2020 12:54 AM Requesting Provider: LISA BROWNING Attending Provider: BRIGID MARTINEZ Report Copy To: Signs & Symptoms: Fever History: See Comments Comments: R/O Infiltrates Exam: PORTABLE CHEST 1 VIEW == PORTABLE CHEST 1 VIEW 01/06/2020 12:54 AM CLINICAL INDICATIONS: Fever TECHNOLOGIST COMMENTS: Patient has a fever per ordering physician. QUESTION FOR THE RADIOLOGIST: R/O Infiltrates PROTOCOL: AP(PA) view was obtained. COMPARISON: None FINDINGS: Cardiomediastinal silhouette and pulmonary vasculature are within normal limits accounting for slightly low lung volumes. No evidence for pneumothorax, focal consolidation, or pleural effusion. IMPRESSION: No evidence for an acute cardiopulmonary process. Electronically signed: Saroj Burroughs. Transcribed by: [id number], User Resident: Electronically Signed by: SAROJ BURROUGHS @ 01/06/2020 12:58 AM Normal [facility] Comment on above: Order Comment: No: D o not add to previous draw TROPONIN-Ion 01-06-2020 Troponin I.cardiac [Mass/Vol] 0.16 ng/mL Critically high 0.00-0.04 [facility] Comment on above: Order Comment: No: D o not add to previous draw Result Comment: REFE RENCE RANGES: 0.00 - 0.04 ng/ml NORMAL 0.05 - 0.50 ng/ml INDETERMINATE > 0.50 ng/ml CONSISTENT WITH AN M.I. Performed By: #### 3 5200 #### [facility] [address] [place] [address], [facility] Troponin I.cardiac [Mass/Vol] 0.26 ng/mL Critically high 0.00-0.04 [facility] Comment on above: Result Comment: REFE RENCE RANGES: 0.00 - 0.04 ng/ml NORMAL 0.05 - 0.50 ng/ml INDETERMINATE > 0.50 ng/ml CONSISTENT WITH AN M.I. Performed By: #### 8 4045, 30238, 85546 #### [facility] [address] [place] [address], [facility] Troponin I.cardiac [Mass/Vol] 0.47 ng/mL Critically high 0.00-0.04 [facility] Comment on above: Order Comment: No: D o not add to previous draw Result Comment: M-TR OPONIN INITIAL CRITICAL HIGH; RESPUN AND RETESTED M-CRITICAL RESULT(S) REVIEWED, CALLED TO AND READ BACK BY JOAN GARNER RN AT 0228. REFERENCE RANGES: 0.00 - 0.04 ng/ml NORMAL 0.05 - 0.50 ng/ml INDETERMINATE > 0.50 ng/ml CONSISTENT WITH AN M.I. Performed By: #### 0 0071, 84752, 32384 #### [facility] [address] UFH HEPARIN ASSAYon 01-06-20 20 UNFRACTIONATED HEPARIN 0.26 IU/mL Low 0.30-0.70 [facility] Comment on above: Result Comment: Denisse roxaban and Apixaban will interfere with the anti Xa assay used to monitor UFH and LMWH. Performed By: #### 3 5200 #### [facility] [address] [facility] UNFRACTIONATED HEPARIN <0.10 Critically low 0.30-0.70 [facility] Comment on above: Result Comment: Denisse roxaban and Apixaban will interfere with the anti Xa assay used to monitor UFH and LMWH. RESULTS CHECKED AND CALLED. ACCURATELY READ BACK BY RADHA REYES RN AT 12:34 Performed By: #### 3 5200 #### [facility] [address] [place], [place] [id number] [place] [address] URINALYSIS REFLEXon 01-06-20 20 Appearance (U) CLEAR Normal CLEAR [facility] Comment on above: Order Comment: Unkno wn Performed By: #### 0 0071, 72217 #### [facility] [address] [place] [address], [facility] Bilirubin [Mass/Vol] Negative Normal NEGATIVE [facility] Comment on above: Order Comment: Unkno wn Performed By: #### 0 0071, 48266 #### [facility] [address] [place] [address], [facility] BLOOD SMALL Abnormal NEGATIVE [facility] Comment on above: Order Comment: Unkno wn Performed By: #### 0 0071, 77096 #### [facility] [address] [place] [address], [facility] Color (U) YELLOW Normal YELLOW [facility] Comment on above: Order Comment: Unkno wn Performed By: #### 0 0071, 11506 #### [facility] [address] [place] [address], [facility] EPIS NONE SEEN Normal FEW,OCC,NO NE SEEN [facility] Comment on above: Order Comment: Unkno wn Performed By: #### 0 0071, 74127 #### [facility] [address] [place] [address], [facility] Glucose [Mass/Vol] Negative Normal NEGATIVE [facility] Comment on above: Order Comment: Unkno wn Performed By: #### 0 0071, 65015 #### [facility] [address] [place] [address], [facility] KETONE 20 mg/dL Abnormal NEGATIVE [facility] Comment on above: Order Comment: Unkno wn Performed By: #### 0 0071, 04906 #### [facility] [address] [place] [address], [facility] LEUK QUAN Negative Normal NEGATIVE [facility] Comment on above: Order Comment: Unkno wn Performed By: #### 0 0071, 92792 #### [facility] [address] [place] [address], [facility] MUCUS THREADS OCC Abnormal NONE SEEN [facility] Comment on above: Order Comment: Unkno wn Performed By: #### 0 0071, 59784 #### [facility] [address] [place] [address], [facility] Nitrite Ql (U) Negative Normal NEGATIVE [facility] Comment on above: Order Comment: Unkno wn Performed By: #### 0 0071, 40283 #### [facility] [address] [place] [address], [facility] pH (Bld) 5.0 Normal 5.0-8.0 [facility] Comment on above: Order Comment: Unkno wn Performed By: #### 0 0071, 09324 #### [facility] [address] [place] [address], [facility] Protein (U) [Mass/Vol] Negative Normal NEGATIVE [facility] Comment on above: Order Comment: Unkno wn Performed By: #### 0 0071, 68041 #### [facility] [address] [place] [address], [facility] RBC (U) [#/Vol] 3-5 Abnormal NONE SEEN [facility] Comment on above: Order Comment: Unkno wn Performed By: #### 0 0071, 31041 #### [facility] [address] [place] [address], [facility] SPEC GRAV 1.011 Low 1.015-1.02 0 [facility] Comment on above: Order Comment: Unkno wn Performed By: #### 0 0071, 78523 #### [facility] [address] [place] [address], [facility] WBC UA 0-2 Abnormal NONE SEEN [facility] Comment on above: Order Comment: Unkno wn Performed By: #### 0 0071, 76274 #### [facility] [address] [place] [address], [facility] Discharge Summaryon 11-25-19 17 HIM IP Note OR [employer] Normal [facility] Vital Signs Date Time Vital Sign Value Performing Clinician Facility 10-03-2024 09:48-0400 Body height 193 cm Richard Lawrence APRN.CNP Work Phone: [facility] [place] 10-03-2024 09:48-0400 Body mass index (BMI) [Ratio] 25.82 kg/m2 Richard Lawrence APRN.CNP Work Phone: [facility] [place] 10-03-2024 09:48-0400 Body weight 96.16 kg Richard Gerrys-Kim STEAM BOX TENDER.CLIENT MANAGER Work Phone: [facility] [place] 10-03-2024 09:48-0400 Diastolic blood pressure 79 mm[Hg] Richard Gerrys-Kim STEAM BOX TENDER.CLIENT MANAGER Work Phone: [facility] [place] 10-03-2024 09:48-0400 Heart rate 60 /min Richard Enochs-Kim STEAM BOX TENDER.CLIENT MANAGER Work Phone: [facility] [place] 10-03-2024 09:48-0400 SaO2% (BldA) [Mass fraction] 98 % Richard Garretts-Kim STEAM BOX TENDER.CLIENT MANAGER Work Phone: [facility] [place] 10-03-2024 09:48-0400 Systolic blood pressure 143 mm[Hg] Richard Garretts-Kim STEAM BOX TENDER.CLIENT MANAGER Work Phone: [facility] [place] 09-04-2024 13:56-0400 Body height 190.5 cm Delmis Ball DO Work Phone: [facility] 09-04-2024 13:56-0400 Body mass index (BMI) [Ratio] 26.7 kg/m2 Delmis Ball DO Work Phone: [facility] 09-04-2024 13:56-0400 Body weight 97.12 kg Delmis Ball DO Work Phone: [facility] 09-04-2024 13:56-0400 Diastolic blood pressure 73 mm[Hg] Delmis Ball DO Work Phone: [facility] 09-04-2024 13:56-0400 Heart rate 96 /min Delmis Ball DO Work Phone: [facility] 09-04-2024 13:56-0400 Respiratory rate 12 /min Delmis Ball DO Work Phone: [facility] 09-04-2024 13:56-0400 Systolic blood pressure 111 mm[Hg] Delmis Ball DO Work Phone: [facility] 09-03-2024 14:12-0400 Body temperature 98.01 [degF] Chair Mccalla Work Phone: [facility] [place] 09-03-2024 14:12-0400 Diastolic blood pressure 63 mm[Hg] Chair Mccalla Work Phone: [facility] [place] 09-03-2024 14:12-0400 Heart rate 87 /min Chair Mccalla Work Phone: [facility] [place] 09-03-2024 14:12-0400 Respiratory rate 16 /min Chair Alisa Work Phone: [facility] [place] 09-03-2024 14:12-0400 SaO2% (BldA) [Mass fraction] 100 % Chair Mccalla Work Phone: [facility] [place] 09-03-2024 14:12-0400 Systolic blood pressure 107 mm[Hg] Chair Mccalla Work Phone: [facility] [place] 08-20-2024 15:04-0400 Body temperature 98.01 [degF] Chair Mccalla Work Phone: [facility] [place] 08-20-2024 15:04-0400 Diastolic blood pressure 73 mm[Hg] Chair Mccalla Work Phone: [facility] [place] 08-20-2024 15:04-0400 Heart rate 87 /min Chair Mccalla Work Phone: [facility] [place] 08-20-2024 15:04-0400 Respiratory rate 16 /min Chair Mccalla Work Phone: [facility] [place] 08-20-2024 15:04-0400 SaO2% (BldA) [Mass fraction] 97 % Chair Alisa Work Phone: [facility] [place] 08-20-2024 15:04-0400 Systolic blood pressure 107 mm[Hg] Chair Mccalla Work Phone: [facility] [place] 07-04-2024 15:21-0400 Body height 193 cm Richard Lawrence APRN.CLIENT MANAGER Work Phone: [facility] [place] 07-04-2024 15:21-0400 Body mass index (BMI) [Ratio] 25.93 kg/m2 Richard Enochs-Kim STEAM BOX TENDER.CLIENT MANAGER Work Phone: [facility] [place] 07-04-2024 15:21-0400 Body weight 96.62 kg Richard Evanochs-Kim STEAM BOX TENDER.CLIENT MANAGER Work Phone: [facility] [place] 07-04-2024 15:21-0400 Diastolic blood pressure 93 mm[Hg] Richard Enochs-Kim STEAM BOX TENDER.CLIENT MANAGER Work Phone: [facility] [place] 07-04-2024 15:21-0400 Heart rate 94 /min Richard Enochs-Kim STEAM BOX TENDER.CLIENT MANAGER Work Phone: [facility] [place] 07-04-2024 15:21-0400 SaO2% (BldA) [Mass fraction] 98 % Richard Evanochs-Kim STEAM BOX TENDER.CLIENT MANAGER Work Phone: [facility] [place] 07-04-2024 15:21-0400 Systolic blood pressure 143 mm[Hg] Richard Evanochs-Kim STEAM BOX TENDER.CLIENT MANAGER Work Phone: [facility] [place] 01-04-2024 14:15-0400 Body height 193 cm Jay Anand MD, PhD Work Phone: [facility] [place] 01-04-2024 14:15-0400 Body mass index (BMI) [Ratio] 25.81 kg/m2 Jay Anand MD, PhD Work Phone: [facility] [place] 01-04-2024 14:15-0400 Body weight 96.16 kg Jay Anand MD, PhD Work Phone: [facility] [place] 01-04-2024 14:15-0400 Diastolic blood pressure 86 mm[Hg] Jay Anand MD, PhD Work Phone: [facility] [place] 01-04-2024 14:15-0400 Heart rate 87 /min Jay Anand MD, PhD Work Phone: [facility] [place] 01-04-2024 14:15-0400 SaO2% (BldA) [Mass fraction] 98 % Jay Anand MD, PhD Work Phone: [facility] [place] 01-04-2024 14:15-0400 Systolic blood pressure 136 mm[Hg] Jay Anand MD, PhD Work Phone: [facility] [place] 07-25-2023 13:44-0400 Body height 193 cm Dread Fay MD Work Phone: [facility] [place] 07-25-2023 13:44-0400 Body mass index (BMI) [Ratio] 26.05 kg/m2 Dread Fay MD Work Phone: [facility] [place] 07-25-2023 13:44-0400 Body weight 97.07 kg Dread Fay MD Work Phone: [facility] [place] 07-25-2023 13:44-0400 Diastolic blood pressure 82 mm[Hg] Dread Fay MD Work Phone: [facility] [place] 07-25-2023 13:44-0400 Heart rate 67 /min Dread Fay MD Work Phone: [facility] [place] 07-25-2023 13:44-0400 Systolic blood pressure 142 mm[Hg] Dread Fay MD Work Phone: [facility] [place] 07-25-2023 11:36-0400 Body height 193 cm Damir Witt MD Work Phone: [facility] [place] 07-25-2023 11:36-0400 Body mass index (BMI) [Ratio] 26.05 kg/m2 Damir Witt MD Work Phone: [facility] [place] 07-25-2023 11:36-0400 Body weight 97.07 kg Damir Witt MD Work Phone: [facility] [place] 07-25-2023 11:36-0400 Diastolic blood pressure 82 mm[Hg] Damir Witt MD Work Phone: [facility] [place] 07-25-2023 11:36-0400 Heart rate 70 /min Damir Witt MD Work Phone: [facility] [place] 07-25-2023 11:36-0400 Respiratory rate 15 /min Damir Witt MD Work Phone: [facility] [place] 07-25-2023 11:36-0400 SaO2% (BldA) [Mass fraction] 99 % Damir Witt MD Work Phone: [facility] [place] 07-25-2023 11:36-0400 Systolic blood pressure 144 mm[Hg] Damir Witt MD Work Phone: [facility] [place] 02-20-2023 09:30-0500 Body height 190.5 cm Delmis Ball Other [employer] Other 02-20-2023 09:30-0500 Body mass index (BMI) [Ratio] 27.52 kg/m2 Delmis Ball Other [employer] Other 02-20-2023 09:30-0500 Body weight 99.88 kg Delmis Ball Other [employer] Other 02-20-2023 09:30-0500 Diastolic blood pressure 73 mm[Hg] Delmis Ball Other [employer] Other 02-20-2023 09:30-0500 Respiratory rate 12 /min Delmis Ball Other [employer] Other 02-20-2023 09:30-0500 Systolic blood pressure 124 mm[Hg] Delmis Ball Other [employer] Other 12-22-2022 08:45-0400 Body height 190.5 cm Delmis Ball Other [employer] Other 12-22-2022 08:45-0400 Body mass index (BMI) [Ratio] 26.95 kg/m2 Delmis Ball Other [employer] Other 12-22-2022 08:45-0400 Body weight 97.8 kg Delmis Ball Other [employer] Other 12-22-2022 08:45-0400 Diastolic blood pressure 80 mm[Hg] Delmis Ball Other [employer] Other 12-22-2022 08:45-0400 Respiratory rate 12 /min Delmis Ball Other [employer] Other 12-22-2022 08:45-0400 Systolic blood pressure 121 mm[Hg] Delmis Ball Other [employer] Other 10-12-2022 10:51-0400 Body height 195.6 cm Damir Witt MD Work Phone: [facility] [place] 10-12-2022 10:51-0400 Body weight 93.26 kg Damir Witt MD Work Phone: [facility] [place] 10-12-2022 10:51-0400 Diastolic blood pressure 83 mm[Hg] Dmair Witt MD Work Phone: [facility] [place] 10-12-2022 10:51-0400 Heart rate 84 /min Damir Witt MD Work Phone: [facility] [place] 10-12-2022 10:51-0400 SaO2% (BldA) [Mass fraction] 99 % Damir Witt MD Work Phone: [facility] [place] 10-12-2022 10:51-0400 Systolic blood pressure 127 mm[Hg] Damir Witt MD Work Phone: [facility] [place] 10-09-2022 11:25-0400 Body height 190.5 cm Nunu Flood Other [employer] Other 10-09-2022 11:25-0400 Body mass index (BMI) [Ratio] 26.15 kg/m2 Nunu Poonley Other [employer] Other 10-09-2022 11:25-0400 Body temperature 97.8 [degF] Nunu Poonley Other [employer] Other 10-09-2022 11:25-0400 Body weight 94.89 kg Nunu Poonley Other [employer] Other 10-09-2022 11:25-0400 Diastolic blood pressure 81 mm[Hg] Nunu Poonley Other [employer] Other 10-09-2022 11:25-0400 Respiratory rate 16 /min Nunu Poonley Other [employer] Other 10-09-2022 11:25-0400 SaO2% (BldA) [Mass fraction] 96 % Nunu Poonley Other [employer] Other 10-09-2022 11:25-0400 Systolic blood pressure 132 mm[Hg] Nunu Aleena Other [employer] Other 09-22-2022 08:45-0400 Body height 190.5 cm Delmis Ball Other [employer] Other 09-22-2022 08:45-0400 Body mass index (BMI) [Ratio] 26.1 kg/m2 Delmis Ball Other [employer] Other 09-22-2022 08:45-0400 Body weight 94.71 kg Delmis Ball Other [employer] Other 09-22-2022 08:45-0400 Diastolic blood pressure 102 mm[Hg] Delmis Ball Other [employer] Other 09-22-2022 08:45-0400 Respiratory rate 12 /min Delmis Ball Other [employer] Other 09-22-2022 08:45-0400 Systolic blood pressure 181 mm[Hg] Delmis Ball Other [employer] Other 06-29-2022 09:45-0400 Body height 190.5 cm Delmis Ball Other [employer] Other 06-29-2022 09:45-0400 Body mass index (BMI) [Ratio] 24.3 kg/m2 Delmis Ball Other [employer] Other 06-29-2022 09:45-0400 Body weight 88.18 kg Delmis Ball Other [employer] Other 06-29-2022 09:45-0400 Diastolic blood pressure 92 mm[Hg] Delmis Ball Other [employer] Other 06-29-2022 09:45-0400 Respiratory rate 12 /min Delmis Ball Other [employer] Other 06-29-2022 09:45-0400 Systolic blood pressure 150 mm[Hg] Delmis Ball Other [employer] Other 06-21-2022 07:50-0400 SaO2% (BldA) [Mass fraction] 99 % Ronobir OSWALDO [facility] 06-21-2022 06:00-0400 Hourly Rounding Ronobir OSWALDO [facility] 06-21-2022 06:00-0400 Promise to Return Ronobir OSWALDO [facility] 06-21-2022 05:07-0400 Hourly Rounding Ronobir OSWALDO [facility] 06-21-2022 05:07-0400 Promise to Return Ronobir OSWALDO [facility] 06-21-2022 05:00-0400 Body temperature 99.32 [degF] Ronobir OSWALDO [facility] 06-21-2022 05:00-0400 Diastolic blood pressure 73 mm[Hg] Ronobir OSWALDO [facility] 06-21-2022 05:00-0400 Heart rate 111 /min Ronobir OSWALDO [facility] 06-21-2022 05:00-0400 Mean blood pressure 84 mm[Hg] Ronobir OSWALDO [facility] 06-21-2022 05:00-0400 Respiratory rate 17 /min Ronobir OSWALDO [facility] 06-21-2022 05:00-0400 SaO2% (BldA) [Mass fraction] 98 % Ronobir OSWALDO [facility] 06-21-2022 05:00-0400 Systolic blood pressure 105 mm[Hg] Ronobir OSWALDO [facility] 06-21-2022 04:01-0400 Blood Pressure Location Ronobir OSWALDO [facility] 06-21-2022 04:01-0400 Body temperature 97.88 [degF] Ronobir OSWALDO [facility] 06-21-2022 04:01-0400 Diastolic blood pressure 70 mm[Hg] Ronobir OSWALDO [facility] 06-21-2022 04:01-0400 Heart rate 110 /min Ronobir OSWALDO [facility] 06-21-2022 04:01-0400 Mean blood pressure 80 mm[Hg] Ronobir OSWALDO [facility] 06-21-2022 04:01-0400 Respiratory rate 16 /min Ronobir OSWALDO [facility] 06-21-2022 04:01-0400 SaO2% (BldA) [Mass fraction] 97 % Ronobir OSWALDO [facility] 06-21-2022 04:01-0400 Systolic blood pressure 100 mm[Hg] Ronobir OSWALDO [facility] 06-21-2022 04:00-0400 Hourly Rounding Ronobir OSWALDO [facility] 06-21-2022 04:00-0400 Promise to Return Ronobir OSWALDO [facility] 06-21-2022 03:41-0400 Body temperature 98.42 [degF] Ronobir OSWALDO [facility] 06-21-2022 03:41-0400 Diastolic blood pressure 82 mm[Hg] Ronobir OSWALDO [facility] 06-21-2022 03:41-0400 Heart rate 114 /min Ronobir OSWALDO [facility] 06-21-2022 03:41-0400 Respiratory rate 19 /min Ronobir OSWALDO [facility] 06-21-2022 03:41-0400 Systolic blood pressure 116 mm[Hg] Ronobir OSWALDO [facility] 06-21-2022 02:55-0400 Mean blood pressure 93 mm[Hg] Ronobir OSWALDO [facility] 06-20-2022 19:00-0400 Heart rate 106 /min Ronobir OSWALDO [facility] 06-20-2022 15:39-0400 Body temperature 98.06 [degF] Ronobir OSWALDO [facility] 06-20-2022 15:39-0400 Heart rate 86 /min Ronobir OSWALDO [facility] 06-20-2022 15:39-0400 Respiratory rate 14 /min Ronobir OSWALDO [facility] 06-20-2022 15:24-0400 Heart rate 94 /min Ronobir OSWALDO [facility] 06-20-2022 15:24-0400 Respiratory rate 20 /min Ronobir OSWALDO [facility] 06-20-2022 15:19-0400 Respiratory rate 18 /min Ronobir OSWALDO [facility] 06-20-2022 15:09-0400 Body temperature 97.16 [degF] Ronobir OSWALDO [facility] 06-20-2022 14:05-0400 Body temperature 98.6 [degF] Ronobir OSWALDO [facility] 06-20-2022 10:06-0400 Mean blood pressure 83 mm[Hg] Ronobir OSWALDO [facility] 06-20-2022 09:26-0400 Heart rate 104 /min Ronobir OSWALDO [facility] 06-20-2022 07:46-0400 Mean blood pressure 86 mm[Hg] Ronobir OSWALDO [facility] 06-19-2022 13:41-0400 Hourly Rounding Ronobir OSWALDO [facility] 06-19-2022 13:41-0400 Promise to Return Ronobir OSWALDO [facility] 06-19-2022 12:41-0400 Hourly Rounding Ronobir OSWALDO [facility] 06-19-2022 12:41-0400 Promise to Return Ronobir OSWALDO [facility] 06-19-2022 12:25-0400 Blood Pressure Location Ronobir OSWALDO [facility] 06-19-2022 12:25-0400 Body temperature 98.6 [degF] Ronobir OSWALDO [facility] 06-19-2022 12:25-0400 Diastolic blood pressure 78 mm[Hg] Ronobir OSWALDO [facility] 06-19-2022 12:25-0400 Heart rate 87 /min Ronobir OSWALDO [facility] 06-19-2022 12:25-0400 Mean blood pressure 90 mm[Hg] Ronobir OSWALDO [facility] 06-19-2022 12:25-0400 Respiratory rate 15 /min Ronobir OSWALDO [facility] 06-19-2022 12:25-0400 SaO2% (BldA) [Mass fraction] 99 % Ronobir OSWALDO [facility] 06-19-2022 12:25-0400 Systolic blood pressure 114 mm[Hg] Ronobir OSWALDO [facility] 06-19-2022 12:15-0400 Blood Pressure Location Ronobir OSWALDO [facility] 06-19-2022 12:15-0400 Diastolic blood pressure 80 mm[Hg] Ronobir OSWALDO [facility] 06-19-2022 12:15-0400 Heart rate 97 /min Ronobir OSWALDO [facility] 06-19-2022 12:15-0400 Mean blood pressure 87 mm[Hg] Ronobir OSWALDO [facility] 06-19-2022 12:15-0400 Respiratory rate 20 /min Ronobir OSWALDO [facility] 06-19-2022 12:15-0400 SaO2% (BldA) [Mass fraction] 99 % Ronobir OSWALDO [facility] 06-19-2022 12:15-0400 Systolic blood pressure 100 mm[Hg] Ronobir OSWALDO [facility] 06-19-2022 12:10-0400 Blood Pressure Location Ronobir OSWALDO [facility] 06-19-2022 12:10-0400 Diastolic blood pressure 73 mm[Hg] Ronobir OSWALDO [facility] 06-19-2022 12:10-0400 Heart rate 86 /min Ronobir OSWALDO [facility] 06-19-2022 12:10-0400 Mean blood pressure 85 mm[Hg] Ronobir OSWALDO [facility] 06-19-2022 12:10-0400 Respiratory rate 13 /min Ronobir OSWALDO [facility] 06-19-2022 12:10-0400 SaO2% (BldA) [Mass fraction] 98 % Ronobir OSWALDO [facility] 06-19-2022 12:10-0400 Systolic blood pressure 110 mm[Hg] Ronobir OSWALDO [facility] 06-19-2022 11:58-0400 Body temperature 97.88 [degF] Ronobir OSWALDO [facility] 06-19-2022 11:50-0400 Respiratory rate 18 /min Ronobir OSWALDO [facility] 06-19-2022 11:45-0400 Respiratory rate 18 /min Ronobir OSWALDO [facility] 06-19-2022 11:40-0400 Respiratory rate 16 /min Ronobir OSWALDO [facility] 06-19-2022 11:06-0400 Body temperature 98.6 [degF] Ronobir OSWALDO [facility] 06-19-2022 11:00-0400 Hourly Rounding Ronobir OSWALDO [facility] 06-19-2022 11:00-0400 Promise to Return Ronobir OSWALDO [facility] 06-19-2022 07:59-0400 Body temperature 98.24 [degF] Ronobir OSWALDO [facility] 06-19-2022 07:59-0400 Mean blood pressure 102 mm[Hg] Ronobir OSWALDO [facility] 06-19-2022 05:03-0400 Mean blood pressure 97 mm[Hg] Ronobir OSWALDO [facility] 06-19-2022 05:03-0400 Body temperature 97.88 [degF] Ronobir OSWALDO [facility] 06-19-2022 00:15-0400 Body temperature 97.7 [degF] Ronobir OSWALDO [facility] 06-19-2022 00:15-0400 Heart rate 79 /min Ronobir OSWALDO [facility] 06-18-2022 23:00-0400 Heart rate 72 /min Ronobir OSWALDO [facility] 06-15-2022 09:18-0400 Diastolic blood pressure 82 mm[Hg] Cordero SALAM [facility] 06-15-2022 09:18-0400 Mean blood pressure 102 mm[Hg] Cordero SALAM [facility] 06-15-2022 09:18-0400 Systolic blood pressure 142 mm[Hg] Cordero SALAM [facility] 06-15-2022 09:16-0400 Blood Pressure Location Cordero SALAM [facility] 06-15-2022 09:16-0400 Diastolic blood pressure 85 mm[Hg] Cordero SALAM [facility] 06-15-2022 09:16-0400 Heart rate 76 /min Cordero SALAM [facility] 06-15-2022 09:16-0400 Respiratory rate 16 /min Cordero SALAM [facility] 06-15-2022 09:16-0400 Systolic blood pressure 146 mm[Hg] Cordero SALAM [facility] 05-24-2022 16:00-0400 Body height 190.5 cm Delmis Ball Other [employer] Other 05-24-2022 16:00-0400 Body mass index (BMI) [Ratio] 25.8 kg/m2 Delmis Ball Other [employer] Other 05-24-2022 16:00-0400 Body weight 93.62 kg Delmis Ball Other [employer] Other 05-24-2022 16:00-0400 Diastolic blood pressure 73 mm[Hg] Delmis Ball Other [employer] Other 05-24-2022 16:00-0400 Respiratory rate 12 /min Delmis Ball Other [employer] Other 05-24-2022 16:00-0400 Systolic blood pressure 132 mm[Hg] Delmis Ball Other [employer] Other 02-08-2022 10:39-0500 Body height 193.04 cm Delmis E Ball Work Phone: [employer] 250 DO Work Phone: 02-08-2022 10:39-0500 Body mass index (BMI) [Ratio] 25.93 kg/m2 Delmis E Ball Work Phone: [employer] 250 DO Work Phone: 02-08-2022 10:39-0500 Body surface area Derived from formula 2.28 m2 Delmis E Ball Work Phone: [employer] 250 DO Work Phone: 02-08-2022 10:39-0500 Body weight 96.62 kg Delmis E Ball Work Phone: [employer] [facility] [address] 250 DO Work Phone: 02-08-2022 10:39-0500 Diastolic blood pressure 74 mm[Hg] Delmis E Ball Work Phone: [facility] 250 DO Work Phone: 02-08-2022 10:39-0500 Heart rate 96 /min Delmis E Ball Work Phone: [facility] 250 DO Work Phone: 02-08-2022 10:39-0500 Systolic blood pressure 110 mm[Hg] Delmis E Ball Work Phone: [facility] 250 DO Work Phone: 12-22-2021 09:11-0400 Diastolic blood pressure 92 mm[Hg] Cordero SALAM [facility] 12-22-2021 09:11-0400 Mean blood pressure 116 mm[Hg] Cordero SALAM [facility] 12-22-2021 09:11-0400 Systolic blood pressure 164 mm[Hg] Cordero SALAM [facility] 12-22-2021 09:09-0400 Blood Pressure Location Cordero SALAM [facility] 12-22-2021 09:09-0400 Diastolic blood pressure 96 mm[Hg] Cordero SALAM [facility] 12-22-2021 09:09-0400 Heart rate 83 /min Cordero SALAM [facility] 12-22-2021 09:09-0400 Respiratory rate 16 /min Cordero SALAM [facility] 12-22-2021 09:09-0400 Systolic blood pressure 162 mm[Hg] Cordero SALAM [facility] 10-06-2021 09:19-0400 Diastolic blood pressure 80 mm[Hg] Cordero SALAM [facility] 10-06-2021 09:19-0400 Heart rate 76 /min Cordero SALAM [facility] 10-06-2021 09:19-0400 Systolic blood pressure 131 mm[Hg] Cordero SALAM [facility] 05-11-2021 11:21-0500 Body height 193.04 cm Delmis Nguyễn Ball Work Phone: [facility] [employer] 250 DO Work Phone: 05-11-2021 11:21-0500 Body mass index (BMI) [Ratio] 25.32 kg/m2 Delmis E Ball Work Phone: [facility] [employer] 250 DO Work Phone: 05-11-2021 11:21-0500 Body surface area Derived from formula 2.25 m2 Delmis E Ball Work Phone: [facility] [employer] 250 DO Work Phone: 05-11-2021 11:21-0500 Body weight 94.35 kg Delmis E Ball Work Phone: [facility] [employer] 250 DO Work Phone: 05-11-2021 11:21-0500 Diastolic blood pressure 88 mm[Hg] Delmis E Ball Work Phone: [facility] [employer] 250 DO Work Phone: 05-11-2021 11:21-0500 Heart rate 79 /min Delmis E Ball Work Phone: [facility] [employer] 250 DO Work Phone: 05-11-2021 11:21-0500 Systolic blood pressure 138 mm[Hg] Delmis Horn Work Phone: [facility] 250 DO Work Phone: Encounters Encounter Date Encounter Type Care Provider Facility Start: 11-22-2024 End: 11-22-2024 Refill Jay Anand MD, PhD Work Phone: Gastroenterology Comment on above: Refill Request Start: 11-14-2024 End: 11-14-2024 Bamboo flowsheet Skylar A Felter STEAM BOX TENDER-CLIENT MANAGER Work Phone: [facility] Start: 11-14-2024 End: 11-14-2024 Bamboo flowsheet Skylar A Felter STEAM BOX TENDER-CLIENT MANAGER Work Phone: [facility] Start: 11-14-2024 End: 11-14-2024 Office outpatient visit 15 minutes Skylar Kelly Felter STEAM BOX TENDER-CLIENT MANAGER Work Phone: [facility] Comment on above: Acne vulgaris (Prima ry Dx); Seborrheic keratosis; Lentigines; Melanocytic nevus of trunk; Seborrheic keratosis, inflamed Start: 11-14-2024 End: 11-14-2024 ambulatory SKYLAR A FELTER Not Available Start: 11-09-2024 End: 11-12-2024 Refill Damir Witt MD Work Phone: Cardiology Comment on above: Refill Request Start: 11-08-2024 End: 11-12-2024 ambulatory Jay Anand MD, PhD Work Phone: Gastroenterology Comment on above: Entyvio Start: 11-06-2024 End: 11-06-2024 Orders Only Saige Lion STEAM BOX TENDER.CLIENT MANAGER Work Phone: Urology Comment on above: Prostate cancer scre ening (Primary Dx); Encounter for observation for other suspected diseases and conditions ruled out Start: 11-05-2024 End: 11-05-2024 Office outpatient new 45 minutes Saige Lion STEAM BOX TENDER.CLIENT MANAGER Work Phone: Urology Comment on above: Prostate cancer scre ening (Primary Dx); Screening for genitourinary condition Start: 11-05-2024 End: 11-08-2024 ambulatory Saige Lion STEAM BOX TENDER.CLIENT MANAGER Work Phone: Urology Start: 10-18-2024 End: 10-18-2024 ambulatory JAY ANAND Facility:[facility] Start: 10-17-2024 End: 10-17-2024 ambulatory SHADE HORN Facility:[facility] Start: 10-03-2024 End: 10-03-2024 Office outpatient visit 25 minutes Richard Lawrence STEAM BOX TENDER.CLIENT MANAGER Work Phone: Pulmonary Medicine Comment on above: Lung nodule (Primary Dx) Start: 10-03-2024 End: 10-03-2024 ambulatory RICHARD LAWRENCE Facility:[facility] Start: 10-03-2024 End: 10-03-2024 Subsequent hospital visit by physician [facility] ([facility]) Work Phone: Radiology Comment on above: Lung nodules [R91.8] Start: 09-30-2024 End: 10-03-2024 Telephone encounter Jay Anand MD, PhD Work Phone: Gastroenterology Comment on above: Medication Authoriza tion (Denial Letter ) Start: 09-25-2024 End: 09-25-2024 Refill Jay Anand MD, PhD Work Phone: Gastroenterology Comment on above: Refill Request Start: 09-18-2024 End: 09-18-2024 Telephone encounter Jay Anand MD, PhD Work Phone: Gastroenterology Comment on above: Medication Problem ( Entyvio pen at wrong specialty pharmacy/[place] updated appeal letter needed for bridge program ) Start: 09-09-2024 End: 09-09-2024 Telephone encounter Judit Gudino APRN.CLIENT MANAGER Work Phone: Gastroenterology Comment on above: Appointment Start: 09-09-2024 End: 09-09-2024 Telemedicine consultation with patient Juditjohn Johnsongenaro HENSLEY.CLIENT MANAGER Work Phone: Gastroenterology Start: 09-09-2024 End: 09-09-2024 ambulatory Judit Gudino APRN.CLIENT MANAGER Work Phone: Gastroenterology Comment on above: Crohn's disease with complication, unspecified gastrointestinal tract location (HCC) (Primary Dx); Crohn's disease of small and large intestines with complication (HCC) Start: 09-05-2024 End: 09-09-2024 Telephone encounter Jay Anand MD, PhD Work Phone: Gastroenterology Comment on above: Medication Problem ( Entyvio Pen denial) Start: 09-04-2024 End: 09-04-2024 ambulatory Delmis Horn DO Work Phone: [facility] Work Phone: Start: 09-04-2024 End: 09-04-2024 Patient encounter procedure Delmis Horn DO -[facility] Work Phone: Start: 09-03-2024 End: 09-09-2024 Orders Only Jay Anand MD, PhD Work Phone: Gastroenterology Comment on above: 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) (Primary Dx) Start: 08-21-2024 End: 08-21-2024 ambulatory Brendan Kingwood [facility] Start: 08-21-2024 End: 08-21-2024 Patient encounter procedure [facility] Comment on above: SPP Inflammatory Con ditions - Treatment Referral (Entyvio); Insurance Authorization ([place] pending submission) Start: 08-20-2024 End: 08-20-[address] Work Phone: Hematology/Oncology Comment on above: 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) (Primary Dx) Start: 08-19-2024 End: 08-19-2024 Follow-up encounter Judit Gudino APRN.CLIENT MANAGER Work Phone: Gastroenterology Start: 08-19-2024 End: 08-19-2024 ambulatory SHADE HORN Facility:[facility] Start: 08-13-2024 End: 08-13-2024 Orders Only Jay Anand MD, PhD Work Phone: Gastroenterology Comment on above: Orders Start: 08-02-2024 End: 08-07-2024 Refill Jay Anand MD, PhD Work Phone: Gastroenterology Comment on above: Refill Request Start: 07-25-2024 End: 07-25-2024 Telemedicine consultation with patient Jay Anand MD, PhD Work Phone: Gastroenterology Start: 07-25-2024 End: 07-25-2024 ambulatory Jay Anand MD, PhD Work Phone: Gastroenterology Comment on above: Crohn's disease with complication, unspecified gastrointestinal tract location (HCC) (Primary Dx); 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); Hypokalemia Start: 07-24-2024 End: 07-24-2024 Refill Jay Anand MD, PhD Work Phone: Gastroenterology Comment on above: Refill Request Start: 07-23-2024 End: 07-23-2024 Telemedicine consultation with patient Dread Fay MD Work Phone: Cardiology Start: 07-23-2024 End: 07-23-2024 ambulatory Dread Fay MD Work Phone: Cardiology Comment on above: S/P implantation of automatic cardioverter/defibrillator (AICD) (Primary Dx); ICD (implantable cardioverter-defibrillator) in place Start: 07-19-2024 End: 07-19-2024 Telephone encounter Richard Lawrence APRN.CLIENT MANAGER Work Phone: Pulmonology [facility] Comment on above: Patient Update Start: 07-04-2024 End: 07-04-2024 Office outpatient new 45 minutes Richard Lawrence APRN.CLIENT MANAGER Work Phone: Pulmonary Medicine Comment on above: Lung nodule (Primary Dx) Start: 07-04-2024 End: 07-04-2024 ambulatory RICHARD LAWRENCE Facility:[facility] Start: 07-03-2024 End: 07-03-2024 ambulatory Fabiano Awad REY Pulmonary Medicine Start: 07-02-2024 End: 09-01-2024 Follow-up encounter Jay Anand MD, PhD Work Phone: Gastroenterology Start: 07-01-2024 ambulatory SHADEJOSE G WILKINSON ALINA JUSTINA Facility:[facility] Start: 07-01-2024 End: 07-01-2024 Subsequent hospital visit by physician Ct [facility] Radiology Comment on above: Crohn's disease of s mall and large intestines with complication (HCC) [K50.819] Start: 06-28-2024 End: 07-09-2024 ambulatory Jay Anand MD, PhD Work Phone: Gastroenterology Comment on above: Potassium Start: 06-27-2024 End: 06-27-2024 Telemedicine consultation with patient Kiko Dumont MD Work Phone: Preventive Cardiology Start: 06-27-2024 End: 06-27-2024 ambulatory Kiko Dumont MD Work Phone: Preventive Cardiology Comment on above: Coronary artery calc ification (Primary Dx); Aortic root dilation Start: 06-26-2024 End: 07-02-2024 ambulatory Jay Anand MD, PhD Work Phone: Gastroenterology Comment on above: Cat scan Start: 06-19-2024 End: 06-19-2024 Telephone encounter Jay Anand MD, PhD Work Phone: Gastroenterology Comment on above: Results; Orders Start: 06-19-2024 End: 06-19-2024 ambulatory SHADE HORN Facility:[facility] Start: 05-30-2024 End: 06-27-2024 Telephone encounter Jay Anand MD, PhD Work Phone: Gastroenterology Comment on above: Medication Problem ( Abbvie Bridge Program: Skyrizi) Start: 05-14-2024 End: 05-14-2024 Bamboo flowsheet Skylar Vidaler STEAM BOX TENDER-CLIENT MANAGER Work Phone: [facility] Start: 05-14-2024 End: 05-14-2024 Bamboo flowsheet Skylar Vidaler STEAM BOX TENDER-CLIENT MANAGER Work Phone: [facility] Start: 05-14-2024 End: 05-14-2024 Patient encounter procedure Skylar Vidaler STEAM BOX TENDER-CLIENT MANAGER Work Phone: [facility] Comment on above: Neoplasm of unspecif ied behavior of bone, soft tissue, and skin (Primary Dx); Inflamed seborrheic keratosis; Surgery, elective Start: 05-14-2024 End: 05-14-2024 ambulatory SKYLAR Mendoza FELTER Not Available Start: 05-13-2024 End: 05-14-2024 ambulatory Jay Anand MD, PhD Work Phone: Gastroenterology Comment on above: Skyrizi Start: 05-02-2024 End: 05-02-2024 ambulatory Jay Anand MD, PhD Work Phone: Gastroenterology Comment on above: Crohn's disease of s mall and large intestines with complication (HCC) (Primary Dx) Start: 05-02-2024 End: 05-02-2024 Telemedicine consultation with patient Jay Anand MD, PhD Work Phone: Gastroenterology Start: 04-21-2024 End: 04-30-2024 Refill Jay Anand MD, PhD Work Phone: Gastroenterology Comment on above: Refill Request Start: 04-15-2024 End: 04-15-2024 ambulatory SHADE [place] Facility:[facility] Start: 04-11-2024 End: 04-11-2024 Bamboo flowsheet Skylar Vidaler STEAM BOX TENDER-CLIENT MANAGER Work Phone: [facility] Start: 04-11-2024 End: 04-11-2024 Bamboo flowsheet Skylar Mendoza Felter STEAM BOX TENDER-CLIENT MANAGER Work Phone: [facility] Start: 04-11-2024 End: 04-11-2024 ambulatory SKYLAR Mendoza FELTER Not Available Start: 04-11-2024 End: 04-11-2024 Patient encounter procedure Skylar Vidaler STEAM BOX TENDER-CLIENT MANAGER Work Phone: [facility] Comment on above: Sebaceous hyperplasi a (Primary Dx); Inflamed seborrheic keratosis; Neoplasm of unspecified behavior of bone, soft tissue, and skin Start: 04-02-2024 End: 04-03-2024 ambulatory Jay Anand MD, PhD Work Phone: Gastroenterology Comment on above: Scar tissue Start: 02-28-2024 End: 02-28-2024 Bamboo flowsheet Skylar Mendoza Felter STEAM BOX TENDER-CLIENT MANAGER Work Phone: [facility] Start: 02-28-2024 End: 02-28-2024 Bamboo flowsheet Skylar Mendoza Felter STEAM BOX TENDER-CLIENT MANAGER Work Phone: [facility] Start: 02-28-2024 End: 02-28-2024 Office outpatient visit 15 minutes Skylar Vidaler STEAM BOX TENDER-CLIENT MANAGER Work Phone: [facility] Comment on above: Sebaceous hyperplasi a; Inflamed seborrheic keratosis; Acne vulgaris Start: 02-28-2024 End: 02-28-2024 ambulatory SKYLAR eMndoza FELTER Not Available Start: 02-22-2024 End: 02-27-2024 ambulatory Jay Anand MD, PhD Work Phone: Gastroenterology Comment on above: Test results Start: 02-22-2024 End: 02-27-2024 E-mail encounter from caregiver Jay Anand MD, PhD Work Phone: Gastroenterology Start: 02-19-2024 End: 02-19-2024 ambulatory SHADE HORN Facility:[facility] Start: 02-09-2024 End: 02-14-2024 Refill Jay Anand MD, PhD Work Phone: Gastroenterology Comment on above: Refill Request Start: 02-06-2024 End: 02-07-2024 ambulatory Jay Anand MD, PhD Work Phone: Gastroenterology Comment on above: Budesonide Start: 02-04-2024 End: 02-14-2024 Refill Jay Anand MD, PhD Work Phone: Gastroenterology Comment on above: Refill Request Start: 02-01-2024 End: 02-01-2024 Bamboo flowsheet Skylar A Felter STEAM BOX TENDER-CLIENT MANAGER Work Phone: [facility] Start: 02-01-2024 End: 02-01-2024 Bamboo flowsheet Skylar A Felter STEAM BOX TENDER-CLIENT MANAGER Work Phone: [facility] Start: 02-01-2024 End: 02-01-2024 Patient encounter procedure Skylar Vidaler STEAM BOX TENDER-CLIENT MANAGER Work Phone: [facility] Comment on above: Sebaceous hyperplasi a; Inflamed seborrheic keratosis Start: 02-01-2024 End: 02-01-2024 ambulatory SKYLAR A FELTER Not Available Start: 01-26-2024 End: 01-26-2024 Orders Only Damir Witt MD Work Phone: Cardiology Comment on above: Encounter for screen ing for cardiovascular disorders (Primary Dx) Start: 01-09-2024 End: 01-18-2024 ambulatory Jay Anand MD, PhD Work Phone: Gastroenterology Comment on above: Comparison on ct Start: 01-04-2024 End: 01-04-2024 ambulatory [facility] Facility:[facility] Start: 01-04-2024 End: 01-04-2024 Patient encounter procedure Jay Anand MD, PhD Work Phone: Gastroenterology Comment on above: Crohn's disease of s mall and large intestines with complication (HCC) (Primary Dx) Start: 01-04-2024 End: 01-04-2024 ambulatory [facility] Facility:[facility] Start: 01-04-2024 End: 01-04-2024 ambulatory [facility] Facility:[facility] Start: 01-04-2024 End: 01-04-2024 Subsequent hospital visit by physician Maryellen Fernandez Radiology Comment on above: Encounter for screen ing for cardiovascular disorders [Z13.6] Start: 01-03-2024 End: 01-03-2024 Orders Only Damir Witt MD Work Phone: Cardiology Comment on above: Encounter for screen ing for cardiovascular disorders (Primary Dx) Start: 01-02-2024 End: 01-02-2024 Telephone encounter Damir Witt MD Work Phone: Cardiology Comment on above: Lab Start: 12-28-2023 End: 12-28-2023 ambulatory [facility] Facility:[facility] Start: 12-28-2023 End: 12-28-2023 ambulatory [facility] Facility:[facility] Start: 12-28-2023 End: 12-28-2023 Subsequent hospital visit by physician [facility] Radiology Ct Scan Comment on above: Crohn's disease of s mall and large intestines with complication (HCC) [K50.819] Start: 12-27-2023 End: 12-27-2023 Treatment Edgardo Ramey PT Work Phone: [facility] PT Comment on above: Cervicalgia (Primary Dx); Balance disorder Start: 12-26-2023 End: 12-26-2023 ambulatory Jay Anand MD, PhD Work Phone: Gastroenterology Comment on above: Skyrizi Start: 12-25-2023 End: 12-25-2023 Bamboo flowsheet Skylar A Felter STEAM BOX TENDER-CLIENT MANAGER Work Phone: [facility] Start: 12-25-2023 End: 12-25-2023 Bamboo flowsheet Skylar A Felter STEAM BOX TENDER-CLIENT MANAGER Work Phone: [facility] Start: 12-25-2023 End: 12-25-2023 Office outpatient visit 15 minutes Skylar A Felter STEAM BOX TENDER-CLIENT MANAGER Work Phone: [facility] Comment on above: Seborrheic keratosis ; Lentigines; Melanocytic nevus of trunk; Personal history of other malignant neoplasm of skin; Optional surgery Start: 12-25-2023 End: 12-25-2023 ambulatory JAY ANAND Facility:[facility] Start: 12-22-2023 End: 12-23-2023 ambulatory Jay Anand MD, PhD Work Phone: Gastroenterology Comment on above: Script Abbvie Start: 12-13-2023 End: 12-13-2023 Bamboo flowsheet Edgardo Ramey PT Work Phone: [facility] PT Start: 12-13-2023 End: 12-13-2023 Bamboo flowsheet Edgardo Ramey PT Work Phone: [facility] PT Start: 12-13-2023 End: 12-14-2023 Treatment Edgardo Ramey PT Work Phone: [facility] PT Comment on above: Cervicalgia (Primary Dx); Balance disorder In house appointment Start: 12-11-2023 End: 12-12-2023 ambulatory Jay Anand MD, PhD Work Phone: Gastroenterology Comment on above: Budesonide Start: 11-30-2023 End: 11-30-2023 ambulatory Jay Anand MD, PhD Work Phone: Gastroenterology Comment on above: Ct scan Start: 11-28-2023 End: 11-28-2023 Bamboo flowsmiranda Rmaey PT Work Phone: [facility] PT Start: 11-28-2023 End: 11-28-2023 Bamboo catrachito Ramey PT Work Phone: [facility] Start: 11-28-2023 End: 01-01-2024 Telephone encounter Jay Anand MD, PhD Work Phone: Gastroenterology Comment on above: Medication Authoriza tion (Skyrizi 360 mg OBI every 4 weeks) Balance disorder (Pr imary Dx); Cervicalgia Start: 11-28-2023 End: 11-28-2023 ambulatory Edgardo Ramey PT Work Phone: [facility] Start: 11-08-2023 End: 11-08-2023 ambulatory Jay Anand MD, PhD Work Phone: Gastroenterology Comment on above: Abbvie assist Start: 11-06-2023 End: 11-06-2023 Refill Jay Anand MD, PhD Work Phone: Gastroenterology Start: 10-31-2023 End: 10-31-2023 Refill Damir Witt MD Work Phone: Cardiology Comment on above: Rx Refills Start: 10-26-2023 End: 10-26-2023 Telemedicine consultation with patient Jay Anand MD, PhD Work Phone: Gastroenterology Start: 10-26-2023 End: 10-30-2023 ambulatory Jay Anand MD, PhD Work Phone: Gastroenterology Comment on above: Crohn's disease of s mall and large intestines with complication (HCC) (Primary Dx) Heart rate Start: 10-17-2023 Orders Only Damir nicole MD Work Phone: Cardiology Comment on above: Pure hyperglyceridem ia (Primary Dx) Results Rx Refills Start: 10-15-2023 Refill Damir nicole MD Work Phone: Cardiology Comment on above: Refill Request Start: 10-11-2023 ambulatory Jay weathers MD, PhD Work Phone: Gastroenterology Comment on above: Blood test Refill Request Start: 10-06-2023 Refill Damir nicole MD Work Phone: Cardiology Start: 09-09-2023 ambulatory Jay weathers MD, PhD Work Phone: Gastroenterology Comment on above: Transfer Tranfer Start: 09-04-2023 Refill Jay weathers MD, PhD Work Phone: Gastroenterology Comment on above: Refill Request Start: 08-22-2023 ambulatory [facility] Provider Cardiology Comment on above: Viagra Start: 08-15-2023 ambulatory Jay weathers MD, PhD Work Phone: Gastroenterology Comment on above: SIBO Start: 08-08-2023 Refill Jay weathers MD, PhD Work Phone: Gastroenterology Comment on above: Refill Request Start: 07-26-2023 End: 07-26-2023 [facility] Damir Witt MD Work Phone: Cardiology Comment on above: Encounter for screen ing for cardiovascular disorders (Primary Dx); Essential hypertension; Cardiomyopathy, unspecified type (HCC) Start: 07-25-2023 Follow-up encounter Dread loredo MD Work Phone: [facility] Department Start: 07-25-2023 End: 07-25-2023 Patient encounter procedure Dread Fay MD Work Phone: [facility] Department Comment on above: ICD (implantable car dioverter-defibrillator) in place (Primary Dx); SVT (supraventricular tachycardia) (HCC); Non-ischemic cardiomyopathy (HCC); Palpitation APPOINTMENT CANCELLE D (Primary Dx) Start: 07-13-2023 End: 07-13-2023 ambulatory Jay Anand MD, PhD Work Phone: Gastroenterology Comment on above: Crohn's disease of s mall and large intestines with complication (HCC) (Primary Dx) Start: 07-13-2023 End: 07-13-2023 Telemedicine consultation with patient Jay Anand MD, PhD Work Phone: Gastroenterology Start: 07-10-2023 Refill Jay weathers MD, PhD Work Phone: Gastroenterology Comment on above: Refill Request Start: 06-16-2023 Telephone encounter Jay Anand MD, PhD Work Phone: Gastroenterology Comment on above: Results Start: 06-14-2023 Follow-up encounter Dread loredo MD Work Phone: [facility] Start: 06-14-2023 ICD Remote F/U Dread newberry MD Work Phone: [facility] Department Start: 2023 Orders Only Jay weathers MD, PhD Work Phone: Gastroenterology Comment on above: Infection in abdomen (HCC) (Primary Dx) Start: 06-08-2023 End: 06-08-2023 ambulatory Jay Anand MD, PhD Work Phone: Gastroenterology Comment on above: Crohn's disease of s mall and large intestines with complication (HCC) (Primary Dx) Start: 06-08-2023 End: 06-08-2023 Telemedicine consultation with patient Jay Anand MD, PhD Work Phone: [facility] Start: 05-29-2023 ambulatory Jay weathers MD, PhD Work Phone: Gastroenterology Comment on above: Leone CT scan Start: 05-23-2023 End: 05-23-2023 Subsequent hospital visit by physician Ct [facility] Radiology Ct Scan Comment on above: Crohn's disease of s mall and large intestines with complication (HCC) [K50.819] Start: 05-19-2023 ambulatory Jay weathers MD, PhD Work Phone: Gastroenterology Comment on above: Cbc Start: 05-17-2023 Orders Only Dread newberry MD Work Phone: Cardiology Comment on above: Cardiomyopathy, unsp ecified type (HCC) (Primary Dx) Start: 04-25-2023 ambulatory Jay weathers MD, PhD Work Phone: Gastroenterology Comment on above: Scan Start: 04-19-2023 ambulatory Judit allen STEAM BOX TENDER.CLIENT MANAGER Work Phone: Gastroenterology Comment on above: Potassium Start: 04-19-2023 E-mail encounter cara couch caregiver Judit Gudino STEAM BOX TENDER.CLIENT MANAGER Work Phone: [facility] Start: 04-17-2023 Refill Jay weathers MD, PhD Work Phone: Gastroenterology Comment on above: Refill Request Start: 04-13-2023 End: 04-13-2023 ambulatory Jay Anand MD, PhD Work Phone: Gastroenterology Comment on above: Crohn's disease of s mall and large intestines with complication (HCC) (Primary Dx) Start: 04-13-2023 End: 04-13-2023 Telemedicine consultation with patient Jay Anand MD, PhD Work Phone: [facility] Start: 04-09-2023 End: 04-09-2023 ambulatory Jay Annad MD, PhD Work Phone: [employer] Other Comment on above: Refill Request Start: 04-09-2023 Telephone encounter Delmis Justina [facility] Start: 03-28-2023 End: 03-28-2023 ambulatory Delmis Horn Other [employer] Other Start: 03-28-2023 Office outpatient vi sit 15 minutes Delmis Horn [facility] Start: 02-20-2023 End: 02-20-2023 ambulatory Delmis Horn Other [employer] Other Start: 02-20-2023 Office outpatient vi sit 15 minutes Delmis Horn [facility] Start: 01-23-2023 End: 01-23-2023 ambulatory Damir Witt MD Work Phone: Cardiology Comment on above: Cardiomyopathy, unsp ecified type (HCC) (Primary Dx) Start: 01-23-2023 End: 01-23-2023 Telemedicine consultation with patient Damir Witt MD Work Phone: [facility] Start: 01-18-2023 ambulatory Jay weathers MD, PhD Work Phone: Gastroenterology Comment on above: Blood test Start: 01-04-2023 ambulatory Jay weathers MD, PhD Work Phone: Gastroenterology Comment on above: Skyrizi Start: 01-02-2023 Telephone encounter Dread loredo MD Work Phone: Cardiology Comment on above: Received Outside Med ical Records ([facility] (1) disc) Start: 12-26-2022 Get Medical Advice Jay Anand MD, PhD Work Phone: Gastroenterology Comment on above: Refill Refill Request Start: 12-22-2022 Office outpatient vi sit 15 minutes Delmis [facility] Start: 12-22-2022 End: 12-22-2022 Refill Jay Anand MD, PhD Work Phone: Gastroenterology Comment on above: Refill Request Skyrizi Start: 12-18-2022 ambulatory [facility] Provider Cardiology Comment on above: MRI Start: 12-14-2022 ambulatory [facility] Facility:[facility] Start: 12-12-2022 Refill Jay weathers MD, PhD Work Phone: Gastroenterology Comment on above: Refill Request Start: 12-01-2022 Orders Only Dread newberry MD Work Phone: Cardiology Comment on above: SVT (supraventricula r tachycardia) (HCC) (Primary Dx) Start: 11-29-2022 Orders Only Damir nicole MD Work Phone: Cardiology Comment on above: SVT (supraventricula r tachycardia) (HCC) (Primary Dx) Start: 11-25-2022 Refill Damir nicole MD Work Phone: Cardiology Comment on above: Rx Refills Start: 11-24-2022 Telephone encounter Damir Shields MD Work Phone: Cardiology Start: 11-18-2022 Telephone encounter Hunter [facility] Work Phone: Gastroenterology Comment on above: Medication Authoriza tion Start: 11-17-2022 Refill Lizy Wise MD Work Phone: [facility] [id number] Comment on above: Refill Request Start: 10-31-2022 ambulatory Jay weathers MD, PhD Work Phone: Gastroenterology Comment on above: Xifaxan Start: 10-31-2022 End: 10-31-2022 Subsequent hospital visit by physician [facility] Qb1 (I-Stat) Radiology Comment on above: 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) [K50.813] Start: 10-27-2022 Refill Jay weathers MD, PhD Work Phone: Gastroenterology Comment on above: Refill Request Start: 10-25-2022 Refill Jay weathers MD, PhD Work Phone: Gastroenterology Comment on above: Refill Request Start: 10-21-2022 End: 10-21-2022 Orders Only Jay Anand MD, PhD Work Phone: Gastroenterology Comment on above: Crohn's disease of s mall intestine with complication (HCC) [K50.019] Start: 10-20-2022 Refill Jay weathers MD, PhD Work Phone: [facility] Comment on above: Refill Request Zio patch Start: 10-12-2022 Follow-up encounter Vito Duff MD Work Phone: [facility] Start: 10-12-2022 End: 10-12-2022 Patient encounter procedure Vito Duff MD Work Phone: [facility] Department Comment on above: Cardiomyopathy, unsp ecified type (HCC) (Primary Dx); Crohn's disease of small intestine with complication (HCC); Cardiac defibrillator in place; Arrhythmia, ventricular Start: 10-10-2022 End: 10-10-2022 ambulatory Juan Mccrary MD Work Phone: Colorectal Surgery Comment on above: 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) (Primary Dx) Crohn's disease of s mall intestine with complication (HCC) (Primary Dx) Start: 10-10-2022 End: 10-10-2022 Telemedicine consultation with patient Juan Mccrary MD Work Phone: [facility] Start: 10-09-2022 End: 10-09-2022 ambulatory Nunu Flood Other [employer] Other Start: 10-09-2022 Office outpatient vi sit 15 minutes Nunu Flood [facility] [place] Start: 09-29-2022 Refill Jay weathers MD, PhD Work Phone: Gastroenterology Comment on above: Refill Request Start: 09-26-2022 End: 09-26-2022 Orders Only Jay Anand MD, PhD Work Phone: Gastroenterology Comment on above: Hypokalemia (Primary Dx) Crohn's disease of s mall intestine with complication (HCC) [K50.019] Start: 09-22-2022 End: 09-22-2022 ambulatory Delmis Horn Other [employer] Other Start: 09-22-2022 Office outpatient vi sit 15 minutes Delmis Horn [facility] Start: 09-15-2022 ambulatory Brendan Wayne (Pharmacist) [facility] Start: 09-15-2022 Patient encounter procedure Brendan Wayne (Pharmacist) [facility] Comment on above: SPP Inflammatory Con ditions - Treatment Referral (Constantine); Insurance Authorization (PA submission pending) Start: 09-14-2022 Orders Only Hunter Blood RP h Work Phone: Gastroenterology Start: 09-12-2022 End: 09-12-2022 ambulatory Jay Anand MD, PhD Work Phone: Gastroenterology Comment on above: Anemia, unspecified type (Primary Dx); Hypokalemia Start: 09-12-2022 End: 09-12-2022 Telemedicine consultation with patient Jay Anand MD, PhD Work Phone: [facility] Start: 09-08-2022 Follow-up encounter Bruce bailon MD Work Phone: [facility] Start: 09-08-2022 Patient encounter procedure Bruce Valencia MD Work Phone: [facility] Department Start: 09-05-2022 Telephone encounter Jay Anand MD, PhD Work Phone: Gastroenterology Comment on above: Orders Start: 09-02-2022 Orders Only Hunter Caitie RP h Work Phone: Gastroenterology Comment on above: Crohn's disease of s mall intestine with complication (HCC) (Primary Dx) Start: 09-01-2022 Telephone encounter Jennie Salguero LPN Gastroenterology Comment on above: Appointment Start: 08-25-2022 End: 08-25-2022 ambulatory Hunter Caitie RPh Work Phone: Gastroenterology Comment on above: Crohn's disease of s mall intestine with complication (HCC) (Primary Dx) Start: 08-25-2022 End: 08-25-2022 Telemedicine consultation with patient Hunter Caitie RPh Work Phone: [facility] Start: 08-12-2022 Orders Only Jay weathers MD, PhD Work Phone: Gastroenterology Comment on above: Crohn's disease of s mall intestine with complication (HCC) (Primary Dx) Start: 08-09-2022 Telephone encounter Delmis Horn [facility] Start: 08-09-2022 End: 08-09-[address] Work Phone: Gastroenterology Comment on above: Crohn's disease of s mall intestine with complication (HCC) Start: 08-09-2022 End: 08-09-2022 Telemedicine consultation with patient Phi Cummings RD Work Phone: [facility] Start: 08-02-2022 ambulatory Jay weathers MD, PhD Work Phone: Gastroenterology Comment on above: Test results Start: 08-02-2022 E-mail encounter fro m caregiver Jay Anand MD, PhD Work Phone: [facility] Start: 06-30-2022 End: 06-30-2022 ambulatory Delmis Horn Other [employer] Other Start: 06-30-2022 Telephone encounter Delmis NAVARRETE [facility] Start: 06-29-2022 End: 06-29-2022 ambulatory Delmis Horn Other [employer] Other Start: 06-29-2022 Office outpatient vi sit 25 minutes Delmis Horn [facility] Start: 06-19-2022 End: 06-21-2022 Evaluation and management of inpatient Betty CHACON [facility] Start: 06-19-2022 End: 06-21-2022 ambulatory [facility] Other Start: 06-19-2022 Telephone encounter Delmis NAVARRETE [facility] Start: 06-18-2022 End: 06-19-2022 ambulatory Jose MCCARTY Facility:[facility] Start: 06-18-2022 End: 06-19-2022 Observation Betty CHACON [facility] Start: 06-17-[address] Delmis Horn Facility:[id number] Start: 06-17-2022 End: 06-18-2022 ambulatory ELOISE STOKES Facility:[facility] Start: 06-15-2022 End: 06-16-2022 ambulatory [facility] Facility:[facility] Start: 06-15-2022 End: 06-15-2022 Patient encounter procedure [facility] Start: 06-14-2022 End: 06-14-2022 ambulatory Eloise Munizraysa Facility:[facility] Start: 06-14-2022 End: 06-14-2022 ambulatory DO Delmis Horn Work Phone: [facility] Work Phone: Start: 06-14-2022 End: 06-14-2022 Patient encounter procedure DO Delmis Horn Work Phone: [facility] Start: 06-09-2022 End: 06-09-2022 ambulatory Delmis Horn Other [employer] Other Start: 06-09-2022 Telephone encounter Delmis NAVARRETE [facility] Start: 05-27-2022 End: 05-27-[address] DELMIS HORN Facility:[facility] Start: 05-24-2022 End: 05-24-2022 ambulatory Delmis Horn Other [employer] Other Start: 05-24-2022 Office outpatient vi sit 15 minutes Delmis Horn [facility] Start: 04-16-2022 End: 04-16-2022 ambulatory Nano Turcios Other [employer] Other Start: 04-16-2022 Telephone encounter Nano RODRIGUEZ [facility] Start: 04-14-2022 End: 04-15-[address] DOCTOR GARCIA Facility:[facility] Start: 04-12-2022 Rx Renewal Delmis leonard Work Phone: [facility] DO Work Phone: Start: 03-29-2022 End: 03-29-2022 ambulatory Delmis Horn Other [employer] Other Start: 03-29-2022 Telephone encounter Delmis NAVARRETE [facility] Start: 03-15-2022 End: 03-15-2022 Patient encounter procedure DO Delmis Horn Work Phone: [facility] Start: 03-15-2022 End: 03-15-2022 ambulatory DO Delmis Horn Work Phone: [facility] Work Phone: Start: 03-14-2022 End: 03-14-2022 ambulatory DO Delmis Horn Work Phone: [facility] Work Phone: Start: 03-14-2022 End: 03-14-2022 Patient encounter procedure DO Delmis Horn Work Phone: [facility] Start: 03-11-2022 End: 03-11-2022 ambulatory Delmis Horn Other [facility] [employer] Other Start: 03-11-2022 Telephone encounter [facility] Start: 02-08-2022 Office outpatient vi sit 25 minutes Delmis Nguyễn Justina Work Phone: [facility] DO Work Phone: Start: 02-08-[address] Eloise Culver II Facility: Start: 12-27-2021 End: 12-28-2021 ambulatory BRADY HELLER Facility:[facility] Start: 12-22-2021 End: 12-23-2021 ambulatory Brady [facility] Facility:[facility] Start: 12-22-2021 End: 12-22-2021 Patient encounter procedure Brady HELLER [facility] Start: 12-14-2021 End: 12-15-[address] DOCTOR GARCIA Facility:[facility] Start: 12-14-[address] Delmis Horn Facility:[id number] Start: 12-14-2021 End: 12-14-2021 ambulatory DO Delmis Justina Work Phone: [facility] Work Phone: Start: 12-14-2021 End: 12-14-2021 Patient encounter procedure DO Delmis Horn Work Phone: [facility] Start: 12-06-2021 End: 12-07-2021 ambulatory BRADY HELLER Facility:[facility] Start: 11-27-2021 End: 11-28-2021 ambulatory BRADY HELLER Facility:[facility] Start: 10-22-2021 End: 10-23-2021 ambulatory ELOISE KIARRA Facility:[facility] Start: 10-06-2021 End: 10-06-2021 Patient encounter procedure Brady HELLER [facility] Start: 08-05-2021 End: 08-06-[address] DELMIS HORN Facility:[facility] Start: 08-02-2021 End: 08-02-[address] DELMIS HORN Facility:[facility] Start: 05-11-2021 Office outpatient vi sit 25 minutes Delmis Horn Work Phone: [facility] DO Work Phone: Start: 04-16-2021 Rx Renewal Eloise tabares MD Work Phone: [facility] DO Work Phone: Start: 03-25-2021 Message Eloise tabares MD Work Phone: [facility] DO Work Phone: Start: 02-24-2021 Telephone encounter Presley mendiola MD Work Phone: [facility] [place] Work Phone: Start: 01-05-2020 End: 01-10-2020 Evaluation and management of inpatient PRISCILLA QUIROZ Facility:[facility] Start: 10-11-2016 End: 10-12-2016 Ambulatory DELMSI Quevedo [facility] Start: 10-06-2016 End: 10-07-2016 Ambulatory DELMIS Quevedo [facility] Start: 10-04-2016 End: 10-05-2016 Ambulatory DELMIS Quevedo [facility] Start: 09-30-2016 End: 10-01-2016 Ambulatory DELMIS [facility] Start: 09-29-2016 End: 09-30-2016 Ambulatory DELMIS [facility] Start: 09-27-2016 End: 09-28-2016 Ambulatory DELMIS Carl [facility] Procedures Date Procedure Procedure Detail Performing Clinician Start: 11-14-2024 CRYOTHERAPY SKIN LESION Skylar A Felter STEAM BOX TENDER-CLIENT MANAGER Work Phone: Start: 11-05-2024 Urnls dip stick/tablet rgnt auto w/o microscopy Bulk Order Provider Start: 10-17-2024 Lipid 1996 panel - Serum or Plasma Vijaya e Amisha STEAM BOX TENDER.CLIENT MANAGER Work Phone: Start: 07-01-2024 Ct abdomen & pelvis w/contrast material Jay Anand MD, PhD Work Phone: Start: 05-14-2024 SKIN / NAIL BIOPSY Skylar A Felter STEAM BOX TENDER-CLIENT MANAGER Work Phone: Start: 05-14-2024 CRYOTHERAPY SKIN LESION Skylar A Felter STEAM BOX TENDER-CLIENT MANAGER Work Phone: Start: 04-11-2024 End: 04-11-2024 SKIN / NAIL BIOPSY Skylar A Felter STEAM BOX TENDER-CLIENT MANAGER Work Phone: Start: 04-11-2024 CRYOTHERAPY SKIN LESION Skylar A Felter STEAM BOX TENDER-CLIENT MANAGER Work Phone: Start: 02-28-2024 CRYOTHERAPY SKIN LESION Skylar A Felter STEAM BOX TENDER-CLIENT MANAGER Work Phone: Start: 02-01-2024 CRYOTHERAPY SKIN LESION Skylar A Felter STEAM BOX TENDER-CLIENT MANAGER Work Phone: Start: 01-04-2024 Ct heart no contrast quant eval coronry calcium Damir Witt MD Work Phone: Start: 12-28-2023 Ct abdomen & pelvis w/contrast material Jay Anand MD, PhD Work Phone: Start: 10-16-2023 Lipid 1996 panel - Serum or Plasma Lisa Witt MD Work Phone: Start: 07-25-2023 ICD CLINIC CHECK Dread Fay MD Work Phone: Start: 06-14-2023 ICD REMOTE CHECK Dread Fay MD Work Phone: Start: 05-23-2023 Ct abdomen & pelvis w/contrast material Jay Anand MD, PhD Work Phone: Start: 10-31-2022 Radiologic exam small int single contrast study Juan Mccrary MD Work Phone: Start: 10-21-2022 Dxa bone density study 1/> sites axial skel Jay Anand MD, PhD Work Phone: Start: 10-12-2022 ICD CLINIC CHECK Vito Duff MD Work Phone: Start: 09-08-2022 ICD CLINIC CHECK Bruce Valencia MD Work Phone: Start: 09-08-2022 ICD CLINIC CHECK Bruce Valencia MD Work Phone: Start: 09-08-2022 Colonoscopy Bruce Valencia MD Work Phone: Start: 06-20-2022 Esophagogastroduodenoscopy Betty EASON Start: 01-09-2020 INSERTION OF DEFIB LEAD INTO R VENTRICLE, PERC APPROACH ERWIN JACKSON Start: 01-07-2020 FLUOROSCOPY OF MULTIPLE CORONARY ARTERIES USING OTH CONTRAST EDMOND V MOUKARBEL Start: 01-07-2020 MEASURE OF CARDIAC SAMPL \T\ PRESSURE, R HEART, PERC APPROACH EDMOND V MOUKARBEL Start: 08-15-2016 Colonoscopy Brady HELLER Start: 12-06-[address] Work Phone: Colonoscopy Eloise Culver MD Work Phone: Comment on above: 2020; Nasal sinus procedure Radha Culver MD Work Phone: Procedure on abdomen Eloise Culver MD Work Phone: Comment on above: x7; Procedure on back Eloise Austin MD Work Phone: Plan of Treatment Date Care Activity Detail Author Start: 2037 RSV Vaccine (1 - 1-dose 75+ series) RSV Vaccine (1 - 1-dose 75+ series) [facility] Start: 09-08-2032 Screening for malignant neoplasm of colon [facility] Start: 10-17-2029 Lipid panel Lipid Screening [facility] Start: 10-15-2028 Lipid panel Lipid Screening [facility] Start: 10-18-2027 Diabetes Screening Diabetes Screening [facility] Start: 08-20-2027 Diabetes Screening Diabetes Screening [facility] Start: 06-20-2027 Diabetes Screening Diabetes Screening [facility] Start: 06-14-2027 Pneumococcal vaccination Pneumococcal Vaccine (3 of 3 - PPSV23 or PCV20) [facility] Start: 04-15-2027 Diabetes Screening Diabetes Screening [facility] Start: 02-18-2027 Diabetes Screening Diabetes Screening [facility] Start: 01-03-2027 Diabetes Screening Diabetes Screening [facility] Start: 10-15-2026 Diabetes Screening Diabetes Screening [facility] Start: 06-08-2026 Diabetes Screening Diabetes Screening [facility] Start: 01-23-2026 Diabetes Screening Diabetes Screening [facility] Start: 11-28-2025 Diabetes Screening Diabetes Screening [facility] Start: 11-18-2025 End: 11-18-2025 Patient encounter procedure 11/18/2025 8:40 AM EDT Office Visit [facility] [address] [place] [id number] Skylar Jacob APRN-CLIENT MANAGER [address] [place] [address] [facility] Start: 11-06-2025 Prostate specific antigen measurement Prostate Cancer Screening Discussion [facility] Start: 09-01-2025 DIABETES SCREEN DIABETES SCREEN [facility] Start: 09-01-2025 Diabetes Screening Diabetes Screening [facility] Start: 08-18-2025 DIABETES SCREEN DIABETES SCREEN [facility] Start: 06-21-2025 DIABETES SCREEN DIABETES SCREEN [facility] [facility] [place] Start: 02-17-2025 End: 02-17-2025 Patient encounter procedure 02/17/2025 2:45 PM EST Office Visit Preventive Cardiology [address] [place] [address] Fabiano Fatima APRN.CLIENT MANAGER [address] [place] [address] Coronary artery calcification; Aortic root dilation Preventive Cardiology Comment on above: Coronary artery calcification; Aortic ro ot dilation Start: 02-17-2025 End: 02-17-2025 Patient encounter procedure 02/17/2025 1:30 PM EST Office Visit Vascular Medicine [address] [place] [address] Coronary artery calcification; Aortic root dilation Vascular Medicine Comment on above: Coronary artery calcification; Aortic ro ot dilation Start: 01-28-2025 End: 01-28-2025 Patient encounter procedure [facility] Radiology CT Scan Comment on above: Crohn's disease with complication, unspe cified gastrointestinal tract location (HCC) [K50.919] Start: 12-26-2024 End: 12-26-2024 Follow-up encounter 12/26/2024 4:30 PM EDT [facility] Gastroenterology [address] [address] Jay Paul MD, PhD [address] [place] [address] Follow Up Gastroenterology Comment on above: Follow Up Start: 12-16-2024 End: 12-16-2024 Patient encounter procedure 12/16/2024 9:05 AM EDT Office Visit [facility] [address] [place] [phone] Skylar Jacob STEAM BOX TENDER-CLIENT MANAGER [address] [place] [address] [facility] [place] [facility] Start: 11-14-2024 End: 11-14-2024 Patient encounter procedure [facility] Comment on above: Arrived Start: 11-11-2024 Influenza vaccination Influenza Vaccine (#1) [facility] Start: 10-22-2024 End: 10-22-2024 Patient encounter procedure Cardiology Comment on above: Aortic root dilation [I77.810] 3MN FU Start: 10-15-2024 End: 10-15-2024 ambulatory 10/15/2024 10:45 AM EDT [facility]fusion [facility] Hematology/Oncology [address] [place] [address] [facility] needs renewal Hematology/Oncology Comment on above: Entyvio needs renewal Start: 10-03-2024 End: 10-03-2024 Patient encounter procedure Radiology Comment on above: [phone] Start: 09-26-2024 End: 12-26-2024 Comprehensive metabolic 2000 panel - Serum or Plasma COMPREHENSIVE METABOLIC PANEL Lab Routine Coronary artery calcification Expected: 09/26/2024, Expires: 12/26/2024 [facility] Work Phone: Comment on above: Expected: 09/26/2024, Expires: Start: 09-26-2024 End: 12-26-2024 Lipid 1996 panel - Serum or Plasma LIPID PANEL, FASTING Lab Routine Coronary artery calcification Expected: 09/26/2024, Expires: 12/26/2024 [facility] Comment on above: Expected: 09/26/2024, Expires: Start: 09-03-2024 End: 09-03-2024 ambulatory 09/03/2024 2:30 PM EDT Infusion Center Hematology/Oncology [address] [place] [address] [place] [address] [facility] H[facility] Comment on above: [facility] Start: 08-20-2024 End: 08-20-2024 ambulatory Hematology/Oncology Comment on above: [facility] Start: 08-07-2024 End: 11-06-2024 25-hydroxyvitamin D3 [Mass/volume] in Serum or Plasma VITAMIN D 25 HYDROXY Lab Routine Crohn's disease with complication, unspecified gastrointestinal tract location (HCC) Diarrhea, unspecified type Expected: 08/07/2024, Expires: 11/06/2024 [facility] Comment on above: Expected: 08/07/2024, Expires: Start: 08-07-2024 End: 11-06-2024 C reactive protein [Mass/volume] in Serum or Plasma C-REACTIVE PROTEIN Lab Routine Crohn's disease with complication, unspecified gastrointestinal tract location (HCC) Diarrhea, unspecified type Expected: 08/07/2024, Expires: 11/06/2024 [facility] Comment on above: Expected: 08/07/2024, Expires: Start: 08-07-2024 End: 11-06-2024 CBC W Auto Differential panel - Blood COMPLETE BLOOD COUNT AND DIFFERENTIAL Lab Routine Crohn's disease with complication, unspecified gastrointestinal tract location (HCC) Diarrhea, unspecified type Expected: 08/07/2024, Expires: 11/06/2024 [facility] Comment on above: Expected: 08/07/2024, Expires: Start: 08-07-2024 End: 11-06-2024 Cobalamin (Vitamin B12) [Mass/volume] in Serum or Plasma VITAMIN B12 Lab Routine Crohn's disease with complication, unspecified gastrointestinal tract location (HCC) Diarrhea, unspecified type Expected: 08/07/2024, Expires: 11/06/2024 [facility] Comment on above: Expected: 08/07/2024, Expires: Start: 08-07-2024 End: 11-06-2024 Comprehensive metabolic 2000 panel - Serum or Plasma COMPREHENSIVE METABOLIC PANEL Lab Routine Crohn's disease with complication, unspecified gastrointestinal tract location (HCC) Diarrhea, unspecified type Expected: 08/07/2024, Expires: 11/06/2024 [facility] Comment on above: Expected: 08/07/2024, Expires: Start: 08-07-2024 End: 11-06-2024 Ferritin [Mass/volume] in Serum or Plasma FERRITIN Lab Routine Crohn's disease with complication, unspecified gastrointestinal tract location (HCC) Diarrhea, unspecified type Expected: 08/07/2024, Expires: 11/06/2024 [facility] Comment on above: Expected: 08/07/2024, Expires: Start: 08-07-2024 End: 11-06-2024 Iron and Iron binding capacity panel - Serum or Plasma IRON AND TIBC Lab Routine Crohn's disease with complication, unspecified gastrointestinal tract location (HCC) Diarrhea, unspecified type Expected: 08/07/2024, Expires: 11/06/2024 [facility] Comment on above: Expected: 08/07/2024, Expires: Start: 08-07-2024 End: 11-06-2024 Transferrin [Mass/volume] in Serum or Plasma TRANSFERRIN Lab Routine Crohn's disease with complication, unspecified gastrointestinal tract location (HCC) Diarrhea, unspecified type Expected: 08/07/2024, Expires: 11/06/2024 [facility] Comment on above: Expected: 08/07/2024, Expires: Start: 07-25-2024 End: 07-25-2024 ambulatory 07/25/2024 2:30 PM EDT [facility] Gastroenterology [address] [address] Jay aPul MD, PhD [address] [place], [place] [id number] Crohn' disease Gastroenterology Comment on above: Crohn' disease Start: 07-23-2024 End: 07-23-2024 ambulatory Cardiology Comment on above: SVT (supraventricular tachycardia) (HCC) [I47.10] Start: 07-04-2024 End: 07-04-2024 Patient encounter procedure 07/04/2024 3:30 PM EDT Office Visit Pulmonary Medicine [address] [place] [address] Richard Lawrence, STEAM BOX TENDER.CLIENT MANAGER [address] [place] [address] Lung nodule [R91.1] Pulmonary Medicine Comment on above: Lung nodule [R91.1] Start: 07-03-2024 End: 10-02-2024 Potassium [Moles/volume] in Serum or Plasma POTASSIUM Lab Routine Crohn's disease of small and large intestines with complication (HCC) Expected: 07/03/2024, Expires: 10/02/2024 [facility] Work Phone: Comment on above: Expected: 07/03/2024, Expires: Start: 07-01-2024 End: 07-01-2024 Patient encounter procedure Radiology Comment on above: CT ENTEROGRAPHY W IVCON Start: 06-27-2024 End: 09-26-2024 Potassium [Moles/volume] in Serum or Plasma POTASSIUM Lab Routine Hypokalemia Expected: 06/27/2024, Expires: 09/26/2024 [facility] Work Phone: Comment on above: Expected: 06/27/2024, Expires: Start: 06-27-2024 End: 06-27-2024 ambulatory 06/27/2024 8:00 AM EDT [facility] Preventive Cardiology [address] [place] [address] Kiko Dumont MD [address] [place], [place] [id number] [facility] Comment on above: [facility] Start: 06-27-2024 End: 06-27-2024 Patient encounter procedure 06/27/2024 7:30 AM EDT Office Visit Preventive Cardiology [address] [place] [address] Kiko Dumont MD [address] [place] [address] New - [facility] Preventive Cardiology Comment on above: [facility] Start: 05-14-2024 End: 05-14-2024 Patient encounter procedure [facility] Comment on above: Arrived Start: 05-02-2024 End: 05-02-2024 ambulatory 05/02/2024 4:00 PM [facility] Gastroenterology [address] [address] Jay Paul MD, PhD [address] [place] [address] crohn's disease Gastroenterology Comment on above: crohn's disease Start: 04-09-2024 End: 04-09-2024 Patient encounter procedure 04/09/2024 1:20 PM EST Office Visit [facility] [address] [place] [phone] Skylar JacobAYDEN-CLIENT MANAGER [address] [place] [address] [facility] Start: 02-28-2024 End: 02-28-2024 Patient encounter procedure [facility] Comment on above: Arrived Start: 02-06-2024 End: 05-07-2024 CREATININE BLD CREATININE BLD Lab Routine Crohn's disease of small and large intestines with complication (HCC) Expected: 02/06/2024, Expires: 05/07/2024 [facility] Comment on above: Expected: 02/06/2024, Expires: Start: 02-01-2024 End: 02-01-2024 Patient encounter procedure [facility] Comment on above: Arrived Start: 01-04-2024 End: 01-04-2024 Patient encounter procedure 01/04/2024 2:30 PM EDT Office Visit Gastroenterology [address] [address] Jay Paul MD, PhD [address] [place] [address] crohn's disease Gastroenterology Comment on above: crohn's disease Start: 01-04-2024 End: 01-04-2024 Patient encounter procedure 01/04/2024 10:20 AM EDT Appointment Radiology [address] [place] [address] [address] CALCIUM SCORING (CARDIAC) WO IVCON Radiology Comment on above: CT CALCIUM SCORING (CARDIAC) WO IVCON Start: 01-03-2024 End: 02-01-2025 CT Heart and Coronary arteries for calcium scoring WO contrast CT CALCIUM SCORING (CARDIAC) WO IVCON Radiology Routine Encounter for screening for cardiovascular disorders Expected: 01/03/2024, Expires: 02/01/2025 [facility] Work Phone: Comment on above: Expected: 01/03/2024, Expires: Start: 01-02-2024 End: 01-02-2024 Patient encounter procedure 01/02/2024 9:20 AM EDT Appointment Radiology Ct Scan [address] [place], [place] [id number] CT CALCIUM SCORING (CARDIAC) WO IVCON Radiology Ct Scan Comment on above: CT CALCIUM SCORING (CARDIAC) WO IVCON Start: 12-28-2023 End: 12-28-2023 Patient encounter procedure 12/28/2023 11:20 AM EDT Appointment Radiology Ct Scan [address] [place], [place] [id number] CT ENTEROGRAPHY W IVCON Radiology Ct Scan Comment on above: CT ENTEROGRAPHY W IVCON Start: 12-28-2023 End: 12-28-2023 Patient encounter procedure 12/28/2023 9:50 AM EDT Appointment Radiology Ct Scan [address] [place], [place] [id number] CT ENTEROGRAPHY W IVCON Radiology Ct Scan Comment on above: CT ENTEROGRAPHY W IVCON Start: 12-27-2023 End: 12-27-2023 ambulatory 12/27/2023 8:30 AM EDT Treatment [facility] [address] [place] [phone] Edgardo Ramey, PT [address] [place] [address] [facility] Start: 12-25-2023 End: 12-25-2023 Patient encounter procedure [facility] Comment on above: lab Arrived Start: 12-13-2023 End: 12-13-2023 Treatment [facility] Comment on above: Cervicalgia (Primary Dx); Balance disorder Start: 11-28-2023 End: 11-28-2023 Evaluation 11/28/2023 9:00 AM EDT Evaluation [facility] [address] [place] [phone] Edgardo Ramey, PT [address] [place] [address] Balance disorder (Primary Dx) [facility] Comment on above: Balance disorder (Primary Dx) Start: 11-20-2023 End: 02-19-2024 Potassium [Moles/volume] in Serum or Plasma POTASSIUM Lab Routine Crohn's disease of small and large intestines with complication (HCC) Expected: 11/20/2023, Expires: 02/19/2024 [facility] Comment on above: Expected: 11/20/2023, Expires: Start: 11-12-2023 Covid-19 Vaccine ( season) Covid-19 Vaccine () [facility] Start: 11-12-2023 Covid-19 Vaccine () Covid-19 Vaccine () [facility] Start: 11-12-2023 Influenza vaccination Influ[facility] Vacc[facility]) [facility] Start: 10-26-2023 End: 10-26-2023 ambulatory 10/26/2023 2:30 PM EDT [facility] Gastroenterology [address] [address] Jay Paul MD, PhD [address] [place] [address] crohn's disease Gastroenterology Comment on above: crohn's disease Start: 10-12-2023 End: 01-11-2024 C reactive protein [Mass/volume] in Serum or Plasma C-REACTIVE PROTEIN Lab Routine Crohn's disease with complication, unspecified gastrointestinal tract location (HCC) Expected: 10/12/2023, Expires: 01/11/2024 [facility] Comment on above: Expected: 10/12/2023, Expires: Start: 10-12-2023 End: 01-11-2024 CBC W Auto Differential panel - Blood COMPLETE BLOOD COUNT AND DIFFERENTIAL Lab Routine Crohn's disease with complication, unspecified gastrointestinal tract location (HCC) Expected: 10/12/2023, Expires: 01/11/2024 [facility] Work Phone: Comment on above: Expected: 10/12/2023, Expires: Start: 10-12-2023 End: 01-11-2024 Comprehensive metabolic 2000 panel - Serum or Plasma COMPREHENSIVE METABOLIC PANEL Lab Routine Crohn's disease with complication, unspecified gastrointestinal tract location (HCC) Expected: 10/12/2023, Expires: 01/11/2024 [facility] Comment on above: Expected: 10/12/2023, Expires: 4 Start: 09-09-2023 Colonoscopy COLONOSCOPY [facility] Start: 09-09-2023 COLORECTAL CANCER SCREENING COLORECTAL CANCER SCREENING [facility] Start: 09-09-2023 Screening for malignant neoplasm of colon [facility] Start: 07-26-2023 End: 07-26-2023 ambulatory 07/26/2023 2:30 PM EDT [facility] Cardiology [address] [place] [address] Damir Witt MD [address] [place] [address] Dx: Cardiomyopathy, unspecified type Cardiology Comment on above: Dx: Cardiomyopathy, unspecified type Start: 07-26-2023 End: 08-24-2024 CT Heart and Coronary arteries for calcium scoring WO contrast CT CALCIUM SCORING (CARDIAC) WO IVCON Radiology Routine Encounter for screening for cardiovascular disorders Expected: 07/26/2023, Expires: 08/24/2024 [facility] Work Phone: Comment on above: Expected: 07/26/2023, Expires: 5 Start: 07-26-2023 End: 10-25-2023 Lipid 1996 panel - Serum or Plasma LIPID PANEL BASIC Lab Routine Encounter for screening for cardiovascular disorders Essential hypertension Expected: 07/26/2023, Expires: 10/25/2023 [facility] Comment on above: Expected: 07/26/2023, Expires: 4 Start: 07-25-2023 End: 07-25-2023 Patient encounter procedure Cardiology Comment on above: Dx: Cardiomyopathy, unspecified type Dx: Cardiomyopathy, unspecified type (HCC) [I42.9] Start: 07-25-2023 End: 07-25-2023 ambulatory 07/25/2023 8:10 AM EDT Results Only Cardiology [address] [place] [id number] Dx: Cardiomyopathy, unspecified type (HCC) [I42.9] Cardiology Comment on above: Dx: Cardiomyopathy, unspecified type (HC C) [I42.9] Start: 07-24-2023 End: 01-24-2024 Echocardiography ECHO Cardiology Routine Cardiomyopathy, unspecified type (HCC) Expected: 07/24/2023, Expires: 01/24/2024 [facility] Work Phone: Comment on above: Expected: 07/24/2023, Expires: Start: 07-18-2023 End: 07-18-2023 ambulatory [facility] Start: 07-16-2023 End: 10-15-2023 C reactive protein [Mass/volume] in Serum or Plasma C-REACTIVE PROTEIN (CRP) Lab Routine Crohn's disease of small and large intestines with complication (HCC) Expected: 07/16/2023 (Approximate), Expires: 10/15/2023 [facility] Work Phone: Comment on above: Expected: 07/16/2023 (Approximate), Expi res: 10/15/2023 Start: 07-16-2023 End: 10-15-2023 CBC W Auto Differential panel - Blood CBC + DIFF Lab Routine Crohn's disease of small and large intestines with complication (HCC) Expected: 07/16/2023 (Approximate), Expires: 10/15/2023 [facility] Work Phone: Comment on above: Expected: 07/16/2023 (Approximate), Expi res: 10/15/2023 Start: 07-13-2023 End: 07-13-2023 ambulatory 07/13/2023 8:30 AM EDT [facility] Gastroenterology [address] [address] Jay Paul MD, PhD [address] [place] [address] crohn's disease Gastroenterology Comment on above: crohn's disease Start: 05-22-2023 End: 08-21-2023 C reactive protein [Mass/volume] in Serum or Plasma C-REACTIVE PROTEIN (CRP) Lab Routine Crohn's disease of small and large intestines with complication (HCC) Expected: 05/22/2023, Expires: 08/21/2023 [facility] Work Phone: Comment on above: Expected: 05/22/2023, Expires: 4 Start: 05-22-2023 End: 08-21-2023 CBC W Auto Differential panel - Blood CBC + DIFF Lab Routine Crohn's disease of small and large intestines with complication (HCC) Expected: 05/22/2023, Expires: 08/21/2023 [facility] Work Phone: Comment on above: Expected: 05/22/2023, Expires: 4 Start: 04-26-2023 End: 07-26-2023 CREATININE BLD CREATININE BLD Lab Routine Crohn's disease of small and large intestines with complication (HCC) Expected: 04/26/2023, Expires: 07/26/2023 [facility] Work Phone: Comment on above: Expected: 04/26/2023, Expires: 4 Start: 04-26-2023 End: 07-26-2023 POTASSIUM BLD POTASSIUM BLD Lab Routine Hypokalemia Expected: 04/26/2023 (Approximate), Expires: 07/26/2023 [facility] Work Phone: Comment on above: Expected: 04/26/2023 (Approximate), Expi res: 07/26/2023 Start: 04-11-2023 Shingrix Vaccine (2 of 2) Shingrix Vaccine (2 of 2) [facility] Start: 03-27-2023 End: 06-26-2023 CBC W Auto Differential panel - Blood CBC + DIFF Lab Routine Crohn's disease of small and large intestines with complication (HCC) Expected: 03/27/2023, Expires: 06/26/2023 [facility] Work Phone: Comment on above: Expected: 03/27/2023, Expires: 4 Start: 03-27-2023 End: 06-26-2023 POTASSIUM BLD POTASSIUM BLD Lab Routine Crohn's disease of small and large intestines with complication (HCC) Expected: 03/27/2023, Expires: 06/26/2023 [facility] Work Phone: Comment on above: Expected: 03/27/2023, Expires: 4 Start: 03-19-2023 Pneumococcal Vaccine: 50+ (3 of 3 - PCV20 or PCV21) Pneumococcal Vaccine: 50+ (3 of 3 - PCV20 or PCV21) [facility] Start: 03-13-2023 Behavioral Health Screening Behavioral Health Screening [facility] Start: 03-13-2023 Depression Assessment Depression Assessment [facility] Start: 01-20-2023 End: 04-21-2023 C reactive protein [Mass/volume] in Serum or Plasma C-REACTIVE PROTEIN (CRP) Lab Routine Crohn's disease of small and large intestines with complication (HCC) Expected: 01/20/2023, Expires: 04/21/2023 [facility] Work Phone: Comment on above: Expected: 01/20/2023, Expires: 4 Start: 01-20-2023 End: 04-21-2023 CBC W Auto Differential panel - Blood CBC + DIFF Lab Routine Crohn's disease of small and large intestines with complication (HCC) Expected: 01/20/2023, Expires: 04/21/2023 [facility] Work Phone: Comment on above: Expected: 01/20/2023, Expires: 4 Start: 01-20-2023 End: 04-21-2023 Comprehensive metabolic 2000 panel - Serum or Plasma COMP METABOLIC PANEL Lab Routine Crohn's disease of small and large intestines with complication (HCC) Expected: 01/20/2023, Expires: 04/21/2023 [facility] Work Phone: Comment on above: Expected: 01/20/2023, Expires: 4 Start: 11-11-2022 Covid-19 Vaccine () Covid-19 Vaccine () [facility] Start: 11-11-2022 Influenza vaccination [facility] Start: 10-13-2022 End: 12-13-2022 CBC panel - Blood by Automated count CBC Lab Routine Anemia, unspecified type Expected: 10/13/2022, Expires: 12/13/2022 [facility] Work Phone: Comment on above: Expected: 10/13/2022, Expires: Start: 10-12-2022 End: 12-12-2022 COPPER BLOOD COPPER BLOOD Lab Routine Cardiomyopathy, unspecified type (HCC) Expected: 10/12/2022, Expires: 12/12/2022 [facility] Work Phone: Comment on above: Expected: 10/12/2022, Expires: 3 Start: 10-12-2022 End: 12-12-2022 Natriuretic peptide.B prohormone N-Terminal [Mass/volume] in Serum or Plasma NT PRO BNP Lab Routine Cardiomyopathy, unspecified type (HCC) Expected: 10/12/2022, Expires: 12/12/2022 [facility] Work Phone: Comment on above: Expected: 10/12/2022, Expires: 3 Start: 10-12-2022 End: 12-12-2022 Thyrotropin [Units/volume] in Serum or Plasma TSH BLD Lab Routine Cardiomyopathy, unspecified type (HCC) Expected: 10/12/2022, Expires: 12/12/2022 [facility] Work Phone: Comment on above: Expected: 10/12/2022, Expires: 3 Start: 10-03-2022 End: 12-03-2022 POTASSIUM BLD POTASSIUM BLD Lab Routine Hypokalemia Expected: 10/03/2022, Expires: 12/03/2022 [facility] Work Phone: Comment on above: Expected: 10/03/2022, Expires: 3 Start: 09-19-2022 End: 11-19-2022 POTASSIUM BLD POTASSIUM BLD Lab Routine Hypokalemia Expected: 09/19/2022, Expires: 11/19/2022 [facility] Work Phone: Comment on above: Expected: 09/19/2022, Expires: 3 Start: 09-12-2022 End: 11-12-2022 C reactive protein [Mass/volume] in Serum or Plasma C-REACTIVE PROTEIN (CRP) Lab Routine Anemia, unspecified type Expected: 09/12/2022, Expires: 11/12/2022 [facility] Work Phone: Comment on above: Expected: 09/12/2022, Expires: 3 Start: 09-12-2022 End: 11-12-2022 CBC panel - Blood by Automated count CBC Lab Routine Anemia, unspecified type Expected: 09/12/2022, Expires: 11/12/2022 [facility] Work Phone: Comment on above: Expected: 09/12/2022, Expires: 3 Start: 09-12-2022 End: 11-12-2022 CREATININE BLD CREATININE BLD Lab Routine Hypokalemia Expected: 09/12/2022, Expires: 11/12/2022 [facility] Work Phone: Comment on above: Expected: 09/12/2022, Expires: 3 Start: 09-12-2022 End: 11-12-2022 Folate [Mass/volume] in Serum or Plasma FOLATE SERUM Lab Routine Anemia, unspecified type Expected: 09/12/2022, Expires: 11/12/2022 [facility] Work Phone: Comment on above: Expected: 09/12/2022, Expires: 3 Start: 09-07-2022 FUV, Provider: Eloise Culver, Status: Pen, Time: 1:40 PM FUV, Provider: Eloise Culver, Status: Pen, Time: 1:40 PM -Located Within [facility] 250 DO Work Phone: Start: 09-02-2022 End: 11-02-2022 POTASSIUM BLD POTASSIUM BLD Lab Routine Crohn's disease of small intestine with complication (HCC) Expected: 09/02/2022, Expires: 11/02/2022 [facility] Work Phone: Comment on above: Expected: 09/02/2022, Expires: 3 Start: 08-28-2022 End: 10-28-2022 BLOOD TB SCREEN BLOOD TB SCREEN Lab Routine Crohn's disease of small intestine with complication (HCC) Expected: 08/28/2022, Expires: 10/28/2022 [facility] Work Phone: Comment on above: Expected: 08/28/2022, Expires: 3 Start: 08-28-2022 End: 10-28-2022 HEPATITIS A ANTIBODY, IGG HEPATITIS A ANTIBODY, IGG Lab Routine Crohn's disease of small intestine with complication (HCC) Expected: 08/28/2022, Expires: 10/28/2022 [facility] Work Phone: Comment on above: Expected: 08/28/2022, Expires: 3 Start: 08-28-2022 End: 10-28-2022 Hepatitis B virus core Ab [Presence] in Serum HEP B CORE AB TOTAL Lab Routine Crohn's disease of small intestine with complication (HCC) Expected: 08/28/2022, Expires: 10/28/2022 [facility] Work Phone: Comment on above: Expected: 08/28/2022, Expires: 3 Start: 08-28-2022 End: 10-28-2022 Hepatitis B virus surface Ab [Presence] in Serum HEP B SURF AB Lab Routine Crohn's disease of small intestine with complication (HCC) Expected: 08/28/2022, Expires: 10/28/2022 [facility] Work Phone: Comment on above: Expected: 08/28/2022, Expires: 3 Start: 08-28-2022 End: 10-28-2022 Hepatitis B virus surface Ag [Presence] in Serum HEP B SURF AG SCRN Lab Routine Crohn's disease of small intestine with complication (HCC) Expected: 08/28/2022, Expires: 10/28/2022 [facility] Work Phone: Comment on above: Expected: 08/28/2022, Expires: 3 Start: 2022 HEPATITIS B (1 of 3 - Risk 3-dose series) HEPATITIS B (1 of 3 - Risk 3-dose series) [facility] [place] Start: 2022 Hepatitis B Vaccine (1 of 3 - Risk 3-dose series) Hepatitis B Vaccine (1 of 3 - Risk 3-dose series) [facility] [place] Start: 2022 RSV Vaccine (1 - 1-dose 60+ series) RSV Vaccine (1 - 1-dose 60+ series) [facility] [place] Start: 03-13-2022 DEPRESSION ASSESSMENT DEPRESSION ASSESSMENT [facility] [place] Start: 02-08-2022 FUV, Provider: Eloise Culver, Status: Pen, Time: 10:30 AM FUV, Provider: Eloise Culver, Status: [place], Time: 10:30 AM [facility] 250 DO Work Phone: Start: 05-11-2021 FUV, Provider: Eloise Culver, Status: Pen, Time: 11:00 AM FUV, Provider: lEoise Culver, Status: Pen, Time: 11:00 AM [facility] [place] Work Phone: Start: 2017 PROSTATE CANCER SCREENING DISCUSSION PROSTATE CANCER SCREENING DISCUSSION [facility] [place] Start: 2017 Prostate specific antigen measurement Prostate Cancer Screening Discussion [facility] [place] Start: 11-20-2015 Urine microalbumin profile DTaP,Tdap,Td Vaccine (1 - Tdap) [facility] [place] Start: 2012 SHINGRIX VACCINE (1 of 2) SHINGRIX VACCINE (1 of 2) [facility] Start: 06-14-2007 COLOGUARD (FIT-DNA) COLOGUARD (FIT-DNA) [facility] [place] Start: 06-14-2007 Colonoscopy COLONOSCOPY [facility] [place] Start: 06-14-2007 COLORECTAL CANCER SCREENING COLORECTAL CANCER SCREENING [facility] [place] Start: 06-14-[address] COLONOGRAPHY [facility] [place] Start: 06-14-2007 FECAL OCCULT BLOOD FECAL OCCULT BLOOD [facility] [place] Start: 06-14-2007 Prostate specific antigen measurement Prostate Cancer Screening Discussion [facility] [place] Start: 06-14-2007 Screening for malignant neoplasm of colon [facility] [place] Start: 06-14-2007 SIGMOIDOSCOPY SIGMOIDOSCOPY [facility] [place] Start: 1997 Lipid 1996 panel - Serum or Plasma Lipid Screening [facility] [place] Start: 1997 Lipid panel Lipid Screening [facility] [place] Start: 1997 LIPID SCREEN LIPID SCREEN [facility] [place] Start: 1981 Urine microalbumin profile [facility] [place] Start: 1980 ANNUAL PCP TEAM CHRONIC DISEASE VISIT ANNUAL PCP TEAM CHRONIC DISEASE VISIT [facility] [place] Start: 1980 Anxiety Screening Anxiety Screening [facility] [place] Start: 1980 BP CONTROLLED (<130/80) BP CONTROLLED (<130/80) [facility] Start: 1980 Depression Screening Depression Screening [facility] [place] Start: 1980 HEPATITIS C SCREENING HEPATITIS C SCREENING [facility] [place] Start: 1980 Hepatitis C screening Hepatitis C Screening [facility] [place] Start: 1980 HIV SCREENING HIV SCREENING [facility] [place] Start: 1980 HIV screening HIV Screening [facility] [place] Start: 1980 MMR (1 of 2 - Risk 2-dose series) MMR (1 of 2 - Risk 2-dose series) [facility] [place] Start: 1980 MMR Vaccine (1 of 2 - Risk 2-dose series) MMR Vaccine (1 of 2 - Risk 2-dose series) [facility] [place] Start: 1980 zzBP Controlled (<130/80) (Retired) zzBP Controlled (<130/80) (Retired) [facility] [place] Start: 1972 Meningococcal B Vaccine: Consider Based On Risk (1 of 4 - Increased Risk) Meningococcal B Vaccine: Consider Based On Risk (1 of 4 - Increased Risk) [facility] [place] Start: 1972 MENINGOCOCCAL B: Consider based on risk (1 of 4 - Increased Risk Bexsero 2-dose series) MENINGOCOCCAL B: Consider based on risk (1 of 4 - Increased Risk Bexsero 2-dose series) [facility] [place] Start: 1972 MENINGOCOCCAL B: Consider based on risk (1 of 4 - Increased Risk) MENINGOCOCCAL B: Consider based on risk (1 of 4 - Increased Risk) [facility] [place] Start: 06-14-1963 HEPATITIS A (1 of 2 - Risk 2-dose series) HEPATITIS A (1 of 2 - Risk 2-dose series) [facility] [place] Start: 1962 [facility]prote[facility] [Mass/m ass] in Stool CALPROTECTIN,FECAL Lab Routine Crohn's disease with complication, unspecified gastrointestinal tract location (HCC) Diarrhea, unspecified type Ordered: 08/07/2024 [facility] Work Phone: Comment on above: Ordered: 08/07/2024 Calprotectin [Mass/m ass] in Stool CALPROTECTIN,FECAL Lab Routine Crohn's disease with complication, unspecified gastrointestinal tract location (HCC) Ordered: 09/09/2024 [facility] Comment on above: Ordered: 09/09/2024 End: 01-03-2025 CBC W Auto Differential panel - Blood COMPLETE BLOOD COUNT AND DIFFERENTIAL Lab Routine Crohn's disease of small and large intestines with complication (HCC) Every 2 months for 6 Occurrences starting 01/05/2024 until 01/03/2025 [facility] Work Phone: Comment on above: Every 2 months for 6 Occurrences startin g 01/05/2024 until 01/03/2025 Clostridioides diffi cile toxin genes [Presence] in Stool by BOUCHRA with probe detection CLOSTRIDIUM DIFFICILE TOXIN BY PCR Lab Routine Crohn's disease with complication, unspecified gastrointestinal tract location (HCC) Diarrhea, unspecified type Ordered: 08/07/2024 [facility] [place] Comment on above: Ordered: 08/07/2024 End: 08-12-2023 Comprehensive metabolic 2000 panel - Serum or Plasma COMP METABOLIC PANEL Lab Routine Crohn's disease of small intestine with complication (HCC) Every other week for 2 Occurrences starting 08/15/2022 until 08/12/2023 [facility] Work Phone: Comment on above: Every other week for 2 Occurrences start ing 08/15/2022 until 08/12/2023 End: 01-03-2025 Comprehensive metabolic 2000 panel - Serum or Plasma COMPREHENSIVE METABOLIC PANEL Lab Routine Crohn's disease of small and large intestines with complication (HCC) Every 2 months for 6 Occurrences starting 01/05/2024 until 01/03/2025 [facility] [place] Comment on above: Every 2 months for 6 Occurrences startin g 01/05/2024 until 01/03/2025 Ct abdomen & pelvis w/contrast material CT ENTEROGRAPHY W IVCON Radiology Routine Crohn's disease of small intestine with complication (HCC) 09/26/2022 8:38 AM EDT [facility] Work Phone: End: 07-12-2024 CT Abdomen and Pelvis W contrast IV CT ABD/PEL W IVCON Radiology Routine Infection in abdomen (HCC) 1 Occurrences starting 2023 until 07/12/2024 [facility] Work Phone: Comment on above: 1 Occurrences starting 2023 until 07/12/2024 End: 08-18-2025 CT Chest WO contrast CT CHEST WO IVCON Radiology Routine Lung nodules 1 Occurrences starting 07/19/2024 until 08/18/2025 [facility] Work Phone: Comment on above: 1 Occurrences starting 07/19/2024 until 08/18/2025 CT Chest WO contrast CT CHEST WO IVCON Radiology Routine Lung nodules 10/03/2024 9:52 AM EDT [facility] Work Phone: End: 05-25-2024 CT Small bowel W contrast PO and W contrast IV CT ENTEROGRAPHY W IVCON Radiology Routine Crohn's disease of small and large intestines with complication (HCC) 1 Occurrences starting 04/26/2023 until 05/25/2024 [facility] Work Phone: Comment on above: 1 Occurrences starting 04/26/2023 until 05/25/2024 End: 12-05-2024 CT Small bowel W contrast PO and W contrast IV CT ENTEROGRAPHY W IVCON Radiology Routine Crohn's disease of small and large intestines with complication (HCC) 1 Occurrences starting 11/06/2023 until 12/05/2024 [facility] Work Phone: Comment on above: 1 Occurrences starting 11/06/2023 until 12/05/2024 End: 06-01-2025 CT Small bowel W contrast PO and W contrast IV CT ENTEROGRAPHY W IVCON Radiology Routine Crohn's disease of small and large intestines with complication (HCC) 1 Occurrences starting 05/02/2024 until 06/01/2025 [facility] Work Phone: Comment on above: 1 Occurrences starting 05/02/2024 until 06/01/2025 End: 10-09-2025 CT Small bowel W contrast PO and W contrast IV CT ENTEROGRAPHY W IVCON Radiology Routine Crohn's disease with complication, unspecified gastrointestinal tract location (HCC) Crohn's disease of small and large intestines with complication (HCC) 1 Occurrences starting 09/09/2024 until 10/09/2025 [facility] Work Phone: Comment on above: 1 Occurrences starting 09/09/2024 until 10/09/2025 Dermatopathology exam Dermatopat hology exam Pathology and Cytology Timed Neoplasm of unspecified behavior of bone, soft tissue, and skin Release Upon Ordering for 1 Occurrences starting 04/11/2024 [employer] Work Phone: Comment on above: Release Upon Ordering for 1 Occurrences starting 04/11/2024 Dermatopathology exam Dermatopat hology exam Pathology and Cytology Timed Neoplasm of unspecified behavior of bone, soft tissue, and skin Release Upon Ordering for 1 Occurrences starting 05/14/2024 [employer] Work Phone: Comment on above: Release Upon Ordering for 1 Occurrences starting 05/14/2024 End: 12-02-2023 ECG COMPLETE ECG COMPLETE ECG Routine SVT (supraventricular tachycardia) (HCC) 1 Occurrences starting 12/01/2022 until 12/02/2023 [facility] Work Phone: Comment on above: 1 Occurrences starting 12/01/2022 until 12/02/2023 End: 05-16-2024 ECG COMPLETE ECG COMPLETE ECG Routine Cardiomyopathy, unspecified type (HCC) 1 Occurrences starting 05/17/2023 until 05/16/2024 [facility] Work Phone: Comment on above: 1 Occurrences starting 05/17/2023 until 05/16/2024 End: 06-27-2025 Echocardiography ECHO Cardiology Routine Aortic root dilation 1 Occurrences starting 06/27/2024 until 06/27/2025 [facility] [place] Comment on above: 1 Occurrences starting 06/27/2024 until 06/27/2025 ENTERIC BACTERIAL PA VALERIA BY PCR ENTERIC BACTERIAL PANEL BY PCR Lab Routine Crohn's disease with complication, unspecified gastrointestinal tract location (HCC) Diarrhea, unspecified type Ordered: 08/07/2024 [facility] [place] Comment on above: Ordered: 08/07/2024 Giardia lamblia+Cryptosporidium sp Ag [Presence] in Stool by Immunoassay CRYPTOSPORIDIUM AND GIARDIA ANTIGENS BY EIA Microbiology Routine Crohn's disease with complication, unspecified gastrointestinal tract location (HCC) Diarrhea, unspecified type Ordered: 08/07/2024 [facility] [place] Comment on above: Ordered: 08/07/2024 End: 12-06-2025 MR Prostate WO and W contrast IV MRI PROSTATE WO/W IVCON Radiology Routine Encounter for observation for other suspected diseases and conditions ruled out Prostate cancer screening 1 Occurrences starting 11/06/2024 until 12/06/2025 [facility] Work Phone: Comment on above: 1 Occurrences starting 11/06/2024 until 12/06/2025 End: 12-06-2025 MR Unspecified body region 3D post processing MRI 3D POST PROCESSING Radiology Routine Prostate cancer screening 1 Occurrences starting 11/06/2024 until 12/06/2025 [facility] [place] Comment on above: 1 Occurrences starting 11/06/2024 until 12/06/2025 OUTSIDE VENDOR CARDI AC OUTPATIENT EXTENDED RHYTHM RECORDING (WITHOUT TELEMETRY) OUTSIDE VENDOR CARDIAC OUTPATIENT EXTENDED RHYTHM RECORDING (WITHOUT TELEMETRY) Holter Routine Cardiomyopathy, unspecified type (HCC) Ordered: 10/12/2022 [facility] Work Phone: Comment on above: Ordered: 10/12/2022 End: 11-09-2023 Radiologic exam small int single contrast study XR SMALL BOWEL SERIES Radiology Routine 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) 1 Occurrences starting 10/10/2022 until 11/09/2023 [facility] Work Phone: Comment on above: 1 Occurrences starting 10/10/2022 until 11/09/2023 [facility] Immunizations Immunization Date Immunization Notes Care Provider [facility] 12-09-2023 influenza virus vaccine, unspecified formulation Edgardo Ramey Work Phone: [facility] 02-14-2023 zoster vaccine recombinant Jay Anand MD, PhD Work Phone: [facility] [place] Work Phone: 12-24-2022 influenza virus vaccine, unspecified formulation Jay Anand MD, PhD Work Phone: [facility] [place] 02-12-2022 COVID-19 Pfizer (Pediatric) Nunu Flood Other [facility] 02-12-2022 SARS-CoV-2 (COVID-19 ) [id number] Cordero GER [facility] 12-22-2021 influenza nasal, unspecified formulation [facility] Work Phone: [facility] Work Phone: 12-22-2021 influenza virus vaccine, split virus (incl. purified surface antigen) Nunu Flood Other [employer] Other 12-22-2021 influenza virus vaccine, unspecified formulation Brady HELLER [facility] 12-22-2021 influenza, injectabl e, quadrivalent, preservative free Delmis Horn Work Phone: [facility] 250 DO Work Phone: 08-20-2021 Comirnaty 30 MCG/0.3 ML Intramuscular Suspension Delmis E Ball Work Phone: [facility] 250 DO Work Phone: 08-20-2021 SARS-CoV-2 mRNA (pdbuhjjigvj-xlbf-ldsnx se) vaccine Cordero SALAM [facility] 12-20-2020 influenza virus vaccine, split virus (incl. purified surface antigen) Nunu Flood Other [employer] Other 12-20-2020 influenza virus vaccine, unspecified formulation MENA SOCIALAM [facility] 12-20-2020 influenza, injectabl e, quadrivalent, preservative free Delmis E Ball Work Phone: [facility] 250 DO Work Phone: 10-25-2020 Pfizer-BioNTech COVID-19 Vacc 30 MCG/0.3ML Intramuscular Suspension Delmis E Ball Work Phone: [facility] 06-03-2020 Pfizer-BioNTech COVID-19 Vacc 30 MCG/0.3ML Intramuscular Suspension Delmis E Ball Work Phone: [facility] 05-13-2020 Pfizer-BioNTech COVID-19 Vacc 30 MCG/0.3ML Intramuscular Suspension Delmis E Ball Work Phone: [facility] 12-20-2019 influenza virus vaccine, split virus (incl. purified surface antigen) Nunu Flood Other [employer] Other 12-20-2019 influenza virus vaccine, unspecified formulation Cordero XMS PenvisionAM [facility] 12-20-2019 influenza, injectabl e, quadrivalent, preservative free Delmis E Ball Work Phone: [place] [address] DO Work Phone: 12-12-2019 influenza virus vaccine, unspecified formulation Eloise Culver MD Work Phone: [facility] 12-14-2018 influenza virus vaccine, unspecified formulation Cordero SALAM [facility] 12-14-2018 influenza, injectabl e, quadrivalent, preservative free Delmis E Ball Work Phone: [place] [address] DO Work Phone: 03-19-2018 pneumococcal conjuga te vaccine, 13 valent Delmis E Ball Work Phone: [facility] 12-28-2017 influenza virus vaccine, unspecified formulation Cordero SALAM [facility] 12-28-2017 influenza, injectabl e, quadrivalent, preservative free Delmis E Ball Work Phone: [place] [address] DO Work Phone: 04-09-2017 pneumococcal polysaccharide vaccine, 23 valent Eloise Culver MD Work Phone: [facility] 12-05-2016 influenza virus vaccine, split virus (incl. purified surface antigen) Nunu Flood Other [employer] Other 12-05-2016 influenza virus vaccine, unspecified formulation Cordero SALAM [facility] 12-05-2016 influenza, injectabl e, quadrivalent, preservative free Delmis E Ball Work Phone: [place] [address] DO Work Phone: 11-19-2015 influenza virus vaccine, unspecified formulation Cordero SALAM [facility] 11-19-2015 influenza, injectabl e, quadrivalent, preservative free Delmis E Ball Work Phone: [facility] Work Phone: 11-19-2015 tetanus and diphther ia toxoids, adsorbed, preservative free, for adult use (5 Lf of tetanus toxoid and 2 Lf of diphtheria toxoid) Nunu Flood Other [facility] [place] Work Phone: 11-09-2015 influenza virus vaccine, unspecified formulation [employer] [facility] 11-09-2015 influenza, injectabl e, quadrivalent, preservative free Delmis E Ball [facility] Work Phone: 12-28-2014 influenza virus vaccine, unspecified formulation [employer] [facility] 12-28-2014 influenza, injectabl e, quadrivalent, preservative free Delmis E Ball [facility] Work Phone: 12-28-2014 tetanus and diphther ia toxoids, adsorbed, preservative free, for adult use (5 Lf of tetanus toxoid and 2 Lf of diphtheria toxoid) Nunu Flood Other [facility] [place] Work Phone: 10-07-2014 hepatitis A vaccine, adult dosage Delmis E Ball Work Phone: [facility] 02-19-2014 hepatitis A vaccine, adult dosage [facility] Work Phone: [facility] [place] Work Phone: 01-29-2014 hepatitis A vaccine, pediatric/adolescent dosage, 2 dose schedule Delmis E Ball Work Phone: [facility] Work Phone: 01-29-2014 hepatitis A vaccine, unspecified formulation Brady HELLER [facility] 12-17-2013 tetanus and diphther ia toxoids, adsorbed, preservative free, for adult use (5 Lf of tetanus toxoid and 2 Lf of diphtheria toxoid) Nunu Flood Other [facility] [place] Work Phone: 12-30-2012 tetanus and diphther ia toxoids, adsorbed, preservative free, for adult use (5 Lf of tetanus toxoid and 2 Lf of diphtheria toxoid) Nunu Flood Other [facility] [place] Work Phone: Payers Date Payer Category Payer Self-pay [id number] 2016 Unknown [id number] 2006 Private Health Insurance [id number] 1988 [facility] 1.2.8 [id number] 1988 Unknown 1962 Unknown [id number] 2.16.8 40.1.674197.3.579.2.647 1962 Unknown [id number] 2.16. 840.1.886280.3.579.2.356 1962 Unknown [id number] 2.16. 840.1.636789.3.579.2.356 1962 Unknown [id number] 2.16. 840.1.722556.3.579.2.356 1962 Unknown [id number] 2.16. 840.1.923596.3.579.2.356 1962 Unknown [id number] 2.16.84 0.1.424493.3.579.2.593 1962 Unknown [id number] 2.16.84 0.1.005478.3.579.2.593 1962 Unknown [id number] 2.16.84 0.1.085789.3.579.2.593 1962 Unknown [id number] 2.16.84 0.1.353929.3.579.2.593 1962 Unknown [id number] 2.16.84 0.1.111520.3.579.2.593 1962 Unknown [id number] 2.16.84 0.1.479340.3.579.2.593 1962 Unknown [id number] 2.16.84 0.1.483241.3.579.2.593 1962 Unknown [id number] 2.16.84 0.1.749920.3.579.2.593 1962 Unknown [id number] 2.16.84 0.1.620338.3.579.2.593 1962 Unknown [id number] 2.16.84 0.1.793651.3.579.2.593 1962 Unknown [id number] 2.16.8 40.1.973211.3.579.2.727 1962 Unknown [id number] 2.16.8 40.1.771707.3.579.2.727 1962 Unknown [id number] 2.16.8 40.1.366054.3.579.2.727 1962 Unknown [id number] 2.16.8 40.1.854945.3.579.2.727 1962 Unknown [id number] 2.16.8 40.1.674232.3.579.2.727 1962 Unknown [id number] 2.16.8 40.1.221893.3.579.2.1259 1962 Unknown [id number] 2.16.84 0.1.234568.3.579.2.1259 1962 Unknown [id number] 2.16.84 0.1.313536.3.579.2.1259 1962 Unknown [id number] 2.16.84 0.1.067211.3.579.2.9 1962 Unknown [id number] 2.16.84 0.1.063165.3.579.2.9 1962 Unknown [id number] 2.16.84 0.1.310977.3.579.2.1258 1962 Unknown [id number] 2.16.84 0.1.401702.3.579.2.1258 1962 Unknown [id number] 2.16.84 0.1.010407.3.579.2.1258 1962 Unknown [id number] 2.16.84 0.1.816937.3.579.2.1259 1959 Unknown [id number] Unknown O [id number] Unknown [facility] [id number] Unknown [id number] 2.16.8 40.1.450719.3.579.2.531 Unknown [id number] 2.16.8 40.1.165794.3.579.2.531 Unknown [id number] 2.16.8 40.1.484343.3.579.2.531 Social History Date Type Detail Facility Start: 08-09-2022 End: 09-08-2022 Consumes alcohol occasionally Consumes alcohol occasionally [facility] Comment on above: rare; soda rare; soda once in awhile; Start: 10-06-2021 End: 01-04-2024 Tobacco smoking status Never smoked tobacco (finding) [facility] Start: 02-12-2012 Tobacco smoking status Never [facility] Start: 08-09-2022 End: 09-08-2022 Sex Assigned At Male [facility] Start: 1960 Sex Assigned At Male F [facility] Start: 07-28-2022 End: 01-04-2024 Tobacco use and exposure Smokeless tobacco non-user [facility] Start: 07-28-2022 End: 09-08-2022 Alcohol intake Lifetime non-drinker (finding) [facility] Start: 06-24-2022 History SDOH Financial 5 [facility] Start: 06-24-2022 History SDOH Food Worry 1 [facility] Start: 06-24-2022 History SDOH Transpo rt Med 2 [facility] Start: 1960 Sex Assigned At Not on file [facility] (I/We) worried wheth er (my/our) food would run out before (I/we) got money to buy more. Never true [facility] In the past 12 month s, was there a time when you were not able to pay the mortgage or rent on time? No [facility] Start: 10-12-2022 End: 11-05-2024 Alcohol intake Ex-drinker (finding) [facility] Sex Male (finding) [facility] NEGATED: Highlighted rowStart: NINF History of tobacco use Passive smoker [facility] Medical Equipment Procedure Code Equipment Code Equipment Origin al Text Equipment Identifier Dates Unknown Unknown 06/19/22 Non Biological Unknown FDA Start: 06-19-2022 FDA Start: 06-19-2022 Unknown Unknown 06/19/22 Non Biological Unknown FDA Start: 06-19-2022 FDA Start: 06-19-2022 Device Angio-Sea l Vip 6fr .035in Collagen 70cm Closure [employer] - [id number] Start: 06-22-2022 Particles Trufil l Nbca Embolization Kit Liquid System 1gm - [id number] Start: 06-22-2022 [id number] Actic or 7 Vr-T [id number] Start: 01-09-[id number] exa Promri S Dx 65/15 [id number] Start: 01-09-2020 Goals Date Patient Goal Desired Activity /State Personal health goal Functional Status Date Assessment Result Facility 06-20-2022 Functional Status No [facility] 06-19-2022 Functional Status [facility] 06-19-2022 Functional Status N/A [facility] 06-18-2022 Functional Status [facility] 06-15-2022 Functional Status N/A [facility] 12-22-2021 Functional Status N/A [facility] 10-06-2021 Functional Status N/A [facility] Clinical Notes 05-10-2021 to 11-22-2024 Telephone Encounter - Kate Traylor LPN - 11/22/2024 2:26 PM EDTTelephone Encounter - Kate Traylor LPN - 11/22/2024 2:26 PM EDTSkylar Jacob APRN-[facility] - 11/14/2024 9:05 AM EDT Note Date & Type Note Facility 11-22-2024 Telephone encounter Note Requested Prescriptions Pending Prescriptions Disp Refills risankizumab-rzaa (SKYRIZI) 360 mg/2.4 mL (150 mg/mL) wearable injector 2.4 mL 11 Sig: Inject 360 mg/2.4 mL subcutaneously once every 4 weeks Patient requested a refill via mSpot message 11/08/24 Last visit: 09/09/24 w Judit Gudino APRN PLAN -Continue Skyrizi Q4 weeks + sub-q Entyvio q2 week which we need to appeal -1st sub-q dose due 4 weeks from last infusion then every 2 weeks thereafter -Continue budesonide 6 mg for 4 weeks then try to decrease to 3 mg; if successful then take 3 mg for 4 weeks and try to come off or alternate 3 mg every other day then off -Stool testing (ordered again today) -CTE end of year (message sent to scheduling pool) -Follow up with Dr. Moss in Dec as scheduled Next visit: 12/26/[address] Moss Last Labs: 10/17/24 Kate Traylor LPN [facility] [place] 11-22-2024 Miscellaneous Notes Requested Prescriptions Pending Prescriptions Disp Refills risankizumab-rzaa (SKYRIZI) 360 mg/2.4 mL (150 mg/mL) wearable injector 2.4 mL 11 Sig: Inject 360 mg/2.4 mL subcutaneously once every 4 weeks Patient requested a refill via mSpot message 11/08/24 Last visit: 09/09/24 w Judit Gudino APRN PLAN -Continue Skyrizi Q4 weeks + sub-q Entyvio q2 week which we need to appeal -1st sub-q dose due 4 weeks from last infusion then every 2 weeks thereafter -Continue budesonide 6 mg for 4 weeks then try to decrease to 3 mg; if successful then take 3 mg for 4 weeks and try to come off or alternate 3 mg every other day then off -Stool testing (ordered again today) -CTE end of year (message sent to scheduling pool) -Follow up with Dr. Moss in Dec as scheduled Next visit: 12/26/[address] Moss Last Labs: 10/17/24 Kate Traylor LPN documented in this encounter [facility] [place] 11-14-2024 History of Present illness Narrative Skin Check Location: Patient requests a full body skin examination Dermatologic history: history of Actinic Keratosis Last visit: Last skin check 12/25/2023, last office visit 05/14/2024 (follow ups) Established patient Follow up Diagnosis: Acne Location: waistline and lower back Last visit: 02/28/2024 Current treatment: Tretinoin 0.05% cream Follow up Diagnosis: sebaceous hyperplasia Location: face, neck and chest Last visit: 4 months ago Symptoms: none Status: improved, wanting more treated today Procedure performed: electrodesiccation Date of procedure: 02/01/24, 02/28/2024, 04/11/2024, 06/14/2024 Number of treatments to date: 5 Lesions: Location: neck, arms, legs and trunk Duration: months Quality: itchy Modifying factors: rubs on clothing, aggravated by picking Associated symptoms: rough, scaly Treatments: none All pertinent medical history, medications, and allergies were reviewed. General Exam: alert, oriented to person, place, and time, normal affect, well appearing Unaccompanied Areas not examined despite medical recommendation: Waist line to knees and Under socks Scalp, Examined , exam limited by hair Right leg Examined patient kept socks on Head, Face Examined Left leg Examined patient kept socks on Neck Examined Right foot Not examined Chest Examined Left foot Not examined Back Examined Buttocks Examined Abdomen Examined Digits,nails: Examined Right arm Examined Left arm Examined Lymphatics: Not examined Hands Examined 0 Skin Exam 1. ACNE VULGARIS Trunk Scattered comedones and inflammatory pustules. The patient was counseled that it may take up to 2-3 months to notice significant improvement of the acne. The use of non-comedogenic cleansers and moisturizers was recommended. Acne treatment plan given today. Continue Tretinoin 0.05 % cream to back once at night. Related Medications tretinoin (Retin-A) 0.05 % cream Apply 1.5 g to the face, once daily at evening/night time, 30 day supply 2. SEBORRHEIC KERATOSIS Generalized Stuck on verrucous, variably pigmented papules and plaques. Patient was counseled regarding these benign growths. Removal is normally not necessary, but they may be removed if they are symptomatic or for cosmetic reasons. 3. LENTIGINES Generalized Scattered hanson macules in sun-exposed areas. The patient was informed that lentigines are benign pigmented lesions that occur on sun-exposed and sun-damaged skin. No treatment is necessary. Recommended regular use of broad spectrum sunscreen SPF 30 or higher 4. MELANOCYTIC NEVUS OF TRUNK Generalized Scattered benign appearing, regular brown to light brown melanocytic papules and macules with similar morphology Counseled regarding these benign growths. Rarely, a nevus can develop into malignant melanoma, so any changing nevi should be promptly re-evaluated. 5. SEBORRHEIC KERATOSIS, INFLAMED (14) Left Lower Leg - Anterior (4), Left Lower Leg - Posterior (2), Right Ankle - Anterior, Right Lower Leg - Anterior (6), Right Lower Leg - Posterior [place] and brown stuck on verrucous scaly papule with surrounding erythema The patient was informed that symptomatic seborrheic keratoses are benign growths that become inflamed, itchy, tender, traumatized, caught on clothing, or bleed. Symptomatic lesions can be treated with cryotherapy or curretage. Thicker lesions treated with cryotherapy may require more than one treatment. The patient was instructed to notify the office if abnormal redness or tenderness develops at the treatment site. Cryotherapy today, see procedure note. Diagnosis: Inflamed seborrheic keratosis Indication: Inflamed Consent: Verbal consent was obtained and risks were discussed, including, but not limited to risks of scarring, darker or calliope player pigmentary changes, recurrence, incomplete removal and infection. [...] or tenderness Cryotherapy, skin lesion - Left Lower Leg - Anterior (4), Left Lower Leg - Posterior (2), Right Ankle - Anterior, Right Lower Leg - Anterior (6), Right Lower Leg - Posterior Next Visit: 1 month (sk follow up)//1 year (skin exam) documented in this encounter [facility] 11-05-2024 Instructions Saige Lion APRN.CNP - 11/05/2024 9:58 AM EDT Saige Lion APRN.CNP [phone] documented in this encounter [facility] [place] 11-05-2024 Note HNO ID: [id number] Author: SAIGE LION APRN.CNP Service: ? Author Type: Nurse Practitioner Type: Progress Notes Filed: 11/05/2024 10:32 Note Text: [facility] NEW PATIENT HISTORY AND PHYSICAL EXAM PATIENT INFO: José Miguel Carreno JR 64 year old REFERRING M.D.: self PCP: Shade Horn Consultation requested by self for an opinion regarding prostate cancer screening and my final recommendations will be communicated back to the requesting physician by way of shared medical record or letter via US mail. HPI 64 year old male w/h/o HTN, defib, Chrons referred for evaluation of prostate cancer screening. 08/2021 PSA 2.7 08/2020 PSA 2.8 FH- no known FH of prostate cancer. He has pelvic floor dysfunction, urinary symptoms coincide with flare up of Chrons- weak stream. Overall not very bothersome. Denies gross hematuria, dysuria, or UTIs. PATHOLOGY: N/a LAB: Creatinine Date Value Ref Range Status 10/17/2024 1.13 0.73 - 1.22 mg/dL Final No results found for: PSA Color (no units) Date Value 06/21/2022 Light Yellow Clarity (no units) Date Value 06/21/2022 Clear Glucose, Urine (no units) Date Value 06/21/2022 Negative Bilirubin, Urine (no units) Date Value 06/21/2022 Negative Ketones, Urine (no units) Date Value 06/21/2022 Negative Specific [place], Ur (no units) Date Value 06/21/2022 1.010 Hemoglobin/Blood,Ur (no units) Date Value 06/21/2022 Negative pH, Urine (no units) Date Value 06/21/2022 6.0 Protein, Urine (no units) Date Value 06/21/2022 Trace Urobilinogen (no units) Date Value 06/21/2022 Negative Nitrites (no units) Date Value 06/21/2022 Negative Leuk Esterase (no units) Date Value 06/21/2022 Negative IMAGING: N/a ALLERGIES: ALLERGIES Allergen Reactions Imuran [Azathioprin* Other: See Comments Joint stiffness Tylenol [Acetaminop* Other: See Comments Fever and clammy MEDICATIONS: vedolizumab (ENTYVIO PEN) 108 mg/0.68 mL pen Inject 0.68 mL subcutaneously every other week. budesonide, enteric coated (ENTOCORT EC) 3 mg 24 hr capsule Take 2 capsules by mouth once daily vedolizumab (ENTYVIO PEN) 108 mg/0.68 mL pen Inject 108mg (1 pen) subcutaneously every other week. vedolizumab (ENTYVIO PEN) 108 mg/0.68 mL pen Inject 108mg (1 pen) subcutaneously every other week. cyanocobalamin 1,000 mcg/mL Inject 1 mL every 4 weeks then once per month following potassium chloride 20 mEq TbER Take 4 tablets by mouth once daily. COPPER ORAL Take by mouth. risankizumab-rzaa (SKYRIZI) 360 mg/2.4 mL (150 mg/mL) wearable injector Inject 360 mg/2.4 mL subcutaneously once every 4 weeks metoprolol succinate ER (TOPROL XL) 25 mg 24 hr tablet Take 1 tablet by mouth two times a day. lisinopril (ZESTRIL) 20 mg tablet Take 10 mg by mouth once daily. Cholecalciferol, Vitamin D3, 25 mcg (1,000 unit) cap Take by mouth q 24 HR. ferrous bis-glycinate chelate (IRON BISGLYCINATE CHELATE) 29 mg iron cap Take 1 capsule by mouth once daily. HISTORIES PAST MEDICAL HISTORY Diagnosis Date Anemia Cardiac arrest (HCC) Congestive heart failure (HCC) Crohn disease (HCC) Crohn's disease (HCC) Dyslipidemia GERD (gastroesophageal reflux disease) GI bleed Hypertension Right ventricular dysplasia (HCC) Syncope Thrombocytopenia FAMILY HISTORY Problem Relation Age of Onset Breast Cancer Mother bone Heart Attack Father Hypertension Father Coronary Artery Disease Father s/p CABG Hypertension Brother PAST SURGICAL HISTORY Procedure Laterality Date BACK SURGERY HX L5 BOWEL RESECTION HX 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 SINUS SURGERY HX SOCIAL HISTORY SOCIAL HISTORY[1] REVIEW OF SYSTEMS General: No weight loss, malaise or fevers. Gastrointestinal: No nausea, vomiting, or diarrhea Genitourinary: See HPI The remainder of the ROS was reviewed and was negative. PHYSICAL EXAMINATION There were no vitals taken for this visit. Constitutional: Well appearing, alert, in no acute distress, and well-hydrated, well nourished Gastrointestinal: non-distended Genitourinary: MALE EXAM: deferred for PSA today ASSESSMENT AND PLAN: Prostate cancer screening Due for PSA screening today. No known FH of prostate cancer. Denies bothersome LUTs. Exam deferred today as patient will get a PSA today. If PSA elevated, will pursue MRI. If PSA within normal range, recommend annual PSA screening. Follow up pending above. Saige Lion APRN.CLIENT MANAGER [1] Social History Tobacco Use Smoking status: Never Passive exposure: Never Smokeless tobacco: Never Vaping Use Vaping status: Never Used Substance Use Topics Alcohol use: Not Currently Drug use: Never [facility] 11-05-2024 History of Present illness Narrative Images from the original note were not included. [facility] NEW PATIENT HISTORY AND PHYSICAL EXAM PATIENT INFO: José Miguel Carreno JR 64 year old REFERRING M.D.: self PCP: Shade Horn Consultation requested by self for an opinion regarding prostate cancer screening and my final recommendations will be communicated back to the requesting physician by way of shared medical record or letter via US mail. HPI 64 year old male w/h/o HTN, defib, Chrons referred for evaluation of prostate cancer screening. 08/2021 PSA 2.7 08/2020 PSA 2.8 FH- no known FH of prostate cancer. He has pelvic floor dysfunction, urinary symptoms coincide with flare up of Chrons- weak stream. Overall not very bothersome. Denies gross hematuria, dysuria, or UTIs. PATHOLOGY: N/a LAB: Creatinine Date Value Ref Range Status 10/17/2024 1.13 0.73 - 1.22 mg/dL Final No results found for: PSA Color (no units) Date Value 06/21/2022 Light Yellow Clarity (no units) Date Value 06/21/2022 Clear Glucose, Urine (no units) Date Value 06/21/2022 Negative Bilirubin, Urine (no units) Date Value 06/21/2022 Negative Ketones, Urine (no units) Date Value 06/21/2022 Negative Specific [place], Ur (no units) Date Value 06/21/2022 1.010 Hemoglobin/Blood,Ur (no units) Date Value 06/21/2022 Negative pH, Urine (no units) Date Value 06/21/2022 6.0 Protein, Urine (no units) Date Value 06/21/2022 Trace Urobilinogen (no units) Date Value 06/21/2022 Negative Nitrites (no units) Date Value 06/21/2022 Negative Leuk Esterase (no units) Date Value 06/21/2022 Negative IMAGING: N/a ALLERGIES: ALLERGIES Allergen Reactions Imuran [Azathioprin* Other: See Comments Joint stiffness Tylenol [Acetaminop* Other: See Comments Fever and clammy MEDICATIONS: vedolizumab (ENTYVIO PEN) 108 mg/0.68 mL pen Inject 0.68 mL subcutaneously every other week. budesonide, enteric coated (ENTOCORT EC) 3 mg 24 hr capsule Take 2 capsules by mouth once daily vedolizumab (ENTYVIO PEN) 108 mg/0.68 mL pen Inject 108mg (1 pen) subcutaneously every other week. vedolizumab (ENTYVIO PEN) 108 mg/0.68 mL pen Inject 108mg (1 pen) subcutaneously every other week. cyanocobalamin 1,000 mcg/mL Inject 1 mL every 4 weeks then once per month following potassium chloride 20 mEq TbER Take 4 tablets by mouth once daily. COPPER ORAL Take by mouth. risankizumab-rzaa (SKYRIZI) 360 mg/2.4 mL (150 mg/mL) wearable injector Inject 360 mg/2.4 mL subcutaneously once every 4 weeks metoprolol succinate ER (TOPROL XL) 25 mg 24 hr tablet Take 1 tablet by mouth two times a day. lisinopril (ZESTRIL) 20 mg tablet Take 10 mg by mouth once daily. Cholecalciferol, Vitamin D3, 25 mcg (1,000 unit) cap Take by mouth q 24 HR. ferrous bis-glycinate chelate (IRON BISGLYCINATE CHELATE) 29 mg iron cap Take 1 capsule by mouth once daily. HISTORIES PAST MEDICAL HISTORY Diagnosis Date Anemia Cardiac arrest (HCC) Congestive heart failure (HCC) Crohn disease (HCC) Crohn's disease (HCC) Dyslipidemia GERD (gastroesophageal reflux disease) GI bleed Hypertension Right ventricular dysplasia (HCC) Syncope Thrombocytopenia FAMILY HISTORY Problem Relation Age of Onset Breast Cancer Mother bone Heart Attack Father Hypertension Father Coronary Artery Disease Father s/p CABG Hypertension Brother PAST SURGICAL HISTORY Procedure Laterality Date BACK SURGERY HX L5 BOWEL RESECTION HX 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 SINUS SURGERY HX SOCIAL HISTORY SOCIAL HISTORY[1] REVIEW OF SYSTEMS General: No weight loss, malaise or fevers. Gastrointestinal: No nausea, vomiting, or diarrhea Genitourinary: See HPI The remainder of the ROS was reviewed and was negative. PHYSICAL EXAMINATION There were no vitals taken for this visit. Constitutional: Well appearing, alert, in no acute distress, and well-hydrated, well nourished Gastrointestinal: non-distended Genitourinary: MALE EXAM: deferred for PSA today ASSESSMENT & PLAN: Prostate cancer screening Due for PSA screening today. No known FH of prostate cancer. Denies bothersome LUTs. Exam deferred today as patient will get a PSA today. If PSA elevated, will pursue MRI. If PSA within normal range, recommend annual PSA screening. Follow up pending above. Saige Lion APRN.CNP [1] Social History Tobacco Use Smoking status: Never Passive exposure: Never Smokeless tobacco: Never Vaping Use Vaping status: Never Used Substance Use Topics Alcohol use: Not Currently Drug use: Never documented in this encounter [facility] 11-05-2024 Note Patient Outreach (UR OLMN) JOSÉ MIGUEL CARRENO ([id number]) 1960 M [facility] Date Time Provider Department 11/05/24 SAIGE LION During your visit today, we recorded the following information about you: Allergies As of Date: 11/05/2024 Noted Allergy Reaction IMURAN (AZATHIOPRINE) 06/21/2022 14 - Other: See Comments Comments: Joint stiffness TYLENOL (ACETAMINOPHEN) 06/21/2022 14 - Other: See Comments Comments: Fever and clammy Date Reviewed: 11/05/2024 Reviewed by: Saige Lion APRN.CNP - Fully Assessed Visit Diagnosis:Screening for genitourinary condition [Z13.89] Order(s):UA DIP, URINE (POC) [[id number]] Order #: [id number] FUTURE Prescriptions as of 11/08/2024 - vedolizumab (ENTYVIO PEN) 108 mg/0.68 mL pen Inject 0.68 mL subcutaneously every other week. - budesonide, enteric coated (ENTOCORT EC) 3 mg 24 hr capsule Take 2 capsules by mouth once daily - vedolizumab (ENTYVIO PEN) 108 mg/0.68 mL pen Inject 108mg (1 pen) subcutaneously every other week. - vedolizumab (ENTYVIO PEN) 108 mg/0.68 mL pen Inject 108mg (1 pen) subcutaneously every other week. - cyanocobalamin 1,000 mcg/mL Inject 1 mL every 4 weeks then once per month following - potassium chloride 20 mEq TbER Take 4 tablets by mouth once daily. - COPPER ORAL Take by mouth. - risankizumab-rzaa (SKYRIZI) 360 mg/2.4 mL (150 mg/mL) wearable injector Inject 360 mg/2.4 mL subcutaneously once every 4 weeks - metoprolol succinate ER (TOPROL XL) 25 mg 24 hr tablet Take 1 tablet by mouth two times a day. - lisinopril (ZESTRIL) 20 mg tablet Take 10 mg by mouth once daily. - Cholecalciferol, Vitamin D3, 25 mcg (1,000 unit) cap Take by mouth q 24 HR. - ferrous bis-glycinate chelate (IRON BISGLYCINATE CHELATE) 29 mg iron cap Take 1 capsule by mouth once daily. 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 The area of concern has decreased in size, which suggests it was likely due to inflammation or a mild infection. There are no signs of cancer or any new findings on the scan. This is excellent news. We discussed your breathing and overall health: - You reported no issues with breathing, shortness of breath, or chest pain. Your lungs sounded clear upon examination. Follow-up: - You do not need to schedule a follow-up appointment at this time. If you experience any new or concerning symptoms, please contact our office. documented in this encounter [facility] 10-03-2024 Note HNO ID: [id number] Author: RICHARD LAWRENCE APRN.SJ Service: ? Author Type: Nurse Practitioner Type: Progress Notes Filed: 10/03/2024 11:02 Note Text: [facility] INCIDENTAL LUNG NODULE PROGRAM (Follow Up) Impression / Recommendations 1. Lung nodule (R91.1) CT scan shows significant improvement in the size of the LLL lung nodule, indicating it was likely due to inflammation or infection rather than malignancy. No new abnormalities were detected. Patient denies dyspnea or chest pain. Auscultation reveals clear lung sounds. - No further follow-up needed for the lung nodule at this time. -- History of Present Illness José Miguel Carreno JR is a 64 year old male with a pertinent past medical history significant for No history of tobacco abuse who is being seen as a follow up for evaluation of a lung nodule(s). José Miguel Carreno JR had a CT Enterography on 07/01/2024 for the indication of Crohn's Disease. 1 nodule were detected Incidentally. The nodule of greatest concern is a Solid 14 mm nodule with a Irregular border in the Left lower lobe of the lung. Prior imaging: (Yes What type of prior imaging? CT Scan Chest [facility] Was the nodule of concern seen on prior imaging? No) - area of nodular thickening but no definitive nodule José Miguel Carreno is a 64-year-old male with a history of Crohn's disease, presenting for follow-up on a recent CT scan. José Miguel reports persistent anxiety, which he describes as unmanageable, despite otherwise feeling well. He denies dyspnea and chest pain. He acknowledges that his anxiety has been exacerbated by recent health concerns, stating, I don't manage this stuff very well. He describes feeling overwhelmed by multiple health issues, including concerns about his lungs, heart, and gastrointestinal system, which he feels are never-ending. He admits to experiencing imagined symptoms, such as dyspnea and cough, which he attributes to his anxiety. He states, I'm honest about it. I'm not going to tell you it hasn't affected me because it for sure has. José Miguel has a history of Crohn's disease, which he believes has made him a better person. He recalls a particularly difficult period in 2012, when he underwent surgery for a leaking bowel. ROS: Cardiovascular: (-) chest pain Respiratory: (-) shortness of breath Psychiatric: (+) anxiety Last 6 Encounter Wt Readings: Date: Wt: 10/03/2024 96.2 kg (212 lb) 07/04/2024 96.6 kg (213 lb) 01/04/2024 96.2 kg (212 lb) 07/25/2023 97.1 kg (214 lb) 07/25/2023 97.1 kg (214 lb) 12/13/2022 95.7 kg (211 lb) Modified Medical Research [place] Dyspnea Scale (MMRC) I only get breathless with strenous exercise 0 Problem List, History, Medications and allergies have been reviewed from the [facility] electronic medical record and any appropriate up-dates have been made. Physical Exam BP 143/79 (BP Site: Left Arm, BP Position: Sitting, BP Cuff Size: Large Adult) Pulse 60 Ht 193 cm (6' 3.98 ) Wt 96.2 kg (212 lb) SpO2 98% BMI 25.82 kg/m? General: Alert, oriented, no acute distress Respiratory: Clear to posterior auscultation, bilaterally Cardiovascular: Regular rate and rhythm, normal S1 and S2, no murmurs or added sounds Extremities: No clubbing, cyanosis, or edema Diagnostic Data I have personally visualized, reviewed and analyzed the findings on pulmonary function testing and radiographs. Imaging: (Today) CT: Significantly decreased size of previously noted lesion, consistent with resolved infection or inflammation. No new abnormalities identified. CT: Previously noted lesion suspicious for infection or inflammation. Last CT/CTA Chest/Lungs CT CHEST WO IVCON Collected: 10/03/2024 9:37 AM (In process) Impression / Recommendations To optimize physician communication via the electronic health record, the Impression AND Recommendations section has been placed at the beginning of this note. ------ Richard Lawrence, STEAM BOX TENDER.[facility] Pulmonary AND Critical Care Medicine October 03, 2024 9:51 AM Follow Up Diagnosis: Lung Nodule Enrolled in Lung Nodule program: Completed Lung Nodule Program Location: [facility] 10-03-2024 History of Present illness Narrative Images from the original note were not included. [facility] INCIDENTAL LUNG NODULE PROGRAM (Follow Up) Impression / Recommendations 1. Lung nodule (R91.1) CT scan shows significant improvement in the size of the LLL lung nodule, indicating it was likely due to inflammation or infection rather than malignancy. No new abnormalities were detected. Patient denies dyspnea or chest pain. Auscultation reveals clear lung sounds. - No further follow-up needed for the lung nodule at this time. History of Present Illness José Miguel Carreno JR is a 64 year old male with a pertinent past medical history significant for No history of tobacco abuse who is being seen as a follow up for evaluation of a lung nodule(s). José Miguel Carreno JR had a CT Enterography on 07/01/2024 for the indication of Crohn's Disease. 1 nodule were detected Incidentally. The nodule of greatest concern is a Solid 14 mm nodule with a Irregular border in the Left lower lobe of the lung. Prior imaging: (Yes What type of prior imaging? CT Scan Chest [facility] Was the nodule of concern seen on prior imaging? No) - area of nodular thickening but no definitive nodule José Miguel Carreno is a 64-year-old male with a history of Crohn's disease, presenting for follow-up on a recent CT scan. José Miguel reports persistent anxiety, which he describes as unmanageable, despite otherwise feeling well. He denies dyspnea and chest pain. He acknowledges that his anxiety has been exacerbated by recent health concerns, stating, I don't manage this stuff very well. He describes feeling overwhelmed by multiple health issues, including concerns about his lungs, heart, and gastrointestinal system, which he feels are never-ending. He admits to experiencing imagined symptoms, such as dyspnea and cough, which he attributes to his anxiety. He states, I'm honest about it. I'm not going to tell you it hasn't affected me because it for sure has. José Miguel has a history of Crohn's disease, which he believes has made him a better person. He recalls a particularly difficult period in 2012, when he underwent surgery for a leaking bowel. ROS: Cardiovascular: (-) chest pain Respiratory: (-) shortness of breath Psychiatric: (+) anxiety Last 6 Encounter Wt Readings: Date: Wt: 10/03/2024 96.2 kg (212 lb) 07/04/2024 96.6 kg (213 lb) 01/04/2024 96.2 kg (212 lb) 07/25/2023 97.1 kg (214 lb) 07/25/2023 97.1 kg (214 lb) 12/13/2022 95.7 kg (211 lb) Modified Medical Research [place] Dyspnea Scale (MMRC) I only get breathless with strenous exercise 0 Problem List, History, Medications and allergies have been reviewed from the [facility] electronic medical record and any appropriate up-dates have been made. Physical Exam BP 143/79 (BP Site: Left Arm, BP Position: Sitting, BP Cuff Size: Large Adult) Pulse 60 Ht 193 cm (6' 3.98 ) Wt 96.2 kg (212 lb) SpO2 98% BMI 25.82 kg/m General: Alert, oriented, no acute distress Respiratory: Clear to posterior auscultation, bilaterally Cardiovascular: Regular rate and rhythm, normal S1 and S2, no murmurs or added sounds Extremities: No clubbing, cyanosis, or edema Diagnostic Data I have personally visualized, reviewed and analyzed the findings on pulmonary function testing and radiographs. Imaging: (Today) CT: Significantly decreased size of previously noted lesion, consistent with resolved infection or inflammation. No new abnormalities identified. CT: Previously noted lesion suspicious for infection or inflammation. Last CT/CTA Chest/Lungs CT CHEST WO IVCON Collected: 10/03/2024 9:37 AM (In process) Impression / Recommendations To optimize physician communication via the electronic health record, the Impression & Recommendations section has been placed at the beginning of this note. ------ Richard Lawrence APRN.CNP Pulmonary & Critical Care Medicine October 03, 2024 9:51 AM Follow Up Diagnosis: Lung Nodule Enrolled in Lung Nodule program: Completed Lung Nodule Program Location: [facility] documented in this encounter [facility] [place] 10-03-2024 History of Present illness Narrative Radiology Service Progress Note PATIENT NAME: José Miguel Carreno JR DATE OF SERVICE: October 03, 2024 TIME: 9:41 AM PATIENT IDENTITY VERIFICATION COMPLETED USING TWO (2) IDENTIFIERS: Name and Date of confirmed by patient verbally. FALL SCREENING: Has the patient had 2 falls in the last year or 1 fall with injury or currently using an Ambulatory Assistive Device (Walker, Cane, Wheelchair, Crutches, etc.)? No PATIENT GENDER DATA: Assigned male at PATIENT RELEVANT IMPLANT DATA REVIEWED: Yes PATIENT PRESENTS WITH AN IMPLANTABLE OR ATTACHED DOFFER: No RADIOLOGY DEPARTMENT: Biopsy and CT; Exam(s) Completed: Chest PERIPHERAL IV DATA: Not applicable SIGNED BY: Fannie Boyle October 03, 2024 9:41 AM documented in this encounter [facility] [place] 10-03-2024 Note HNO ID: [id number] Author: CHARI KAY Tech Service: ? Author Type: Technologist Type: Progress Notes Filed: 10/03/2024 09:41 Note Text: Radiology Service Progress Note PATIENT NAME: José Miguel Carreno JR DATE OF SERVICE: October 03, 2024 TIME: 9:41 AM PATIENT IDENTITY VERIFICATION COMPLETED USING TWO (2) IDENTIFIERS: Name and Date of confirmed by patient verbally. FALL SCREENING: Has the patient had 2 falls in the last year or 1 fall with injury or currently using an Ambulatory Assistive Device (Walker, Cane, Wheelchair, Crutches, etc.)? No PATIENT GENDER DATA: Assigned male at PATIENT RELEVANT IMPLANT DATA REVIEWED: Yes PATIENT PRESENTS WITH AN IMPLANTABLE OR ATTACHED DOFFER: No RADIOLOGY DEPARTMENT: Biopsy and CT; Exam(s) Completed: Chest PERIPHERAL IV DATA: Not applicable SIGNED BY: Fannie Boyle October 03, 2024 9:41 AM [facility] 09-30-2024 Telephone encounter Note Received communication from Dr. Moss's child care cook of denied prior authorization request for patient's Skyrizi OBI Q4 therapy. Upon inspection of [employer] Portal patient was not previously enrolled. Enrollment task has been completed. Denial letter has been uploaded to portal and communication has been sent to Julio Leonard to over see request. Routing update to child care cook. Rosy Ivory [employer] Navigator [facility] [place] 09-30-2024 Miscellaneous Notes Received communication from Dr. Moss's child care cook of denied prior authorization request for patient's Skyrgaretti OBI Q4 therapy. Upon inspection of [employer] Portal patient was not previously enrolled. Enrollment task has been completed. Denial letter has been uploaded to portal and communication has been sent to Julio Leonard to over see request. Routing update to child care cook. Rosy Ivory [employer] Navigator Images from the original note were not included. Received fax from [facility] Determination Letter indexed into chart. Amisha Molina Deputy Brand Inspector documented in this encounter [facility] [place] 09-30-2024 Telephone encounter Note Images from the original note were not included. Received fax from [facility] Determination Letter indexed into chart. Amisha Molian Deputy Brand Inspector [facility] [place] 09-25-2024 Telephone encounter Note Received call from patient who stated he is going out of town today and is out of refills of budesonide. Patient is requesting a short supply to his local pharmacy and the 90 day supply to his mail order pharmacy. Requested Prescriptions Pending Prescriptions Disp Refills budesonide, enteric coated (ENTOCORT EC) 3 mg 24 hr capsule 32 capsule 0 Sig: Take 2 capsules by mouth once daily budesonide, enteric coated (ENTOCORT EC) 3 mg 24 hr capsule 180 capsule 1 Sig: Take 2 capsules by mouth once daily Patient should start on October 11, 2024. Kate Traylor LPN [facility] [place] 09-25-2024 Miscellaneous Notes Received call from patient who stated he is going out of town today and is out of refills of budesonide. Patient is requesting a short supply to his local pharmacy and the 90 day supply to his mail order pharmacy. Requested Prescriptions Pending Prescriptions Disp Refills budesonide, enteric coated (ENTOCORT EC) 3 mg 24 hr capsule 32 capsule 0 Sig: Take 2 capsules by mouth once daily budesonide, enteric coated (ENTOCORT EC) 3 mg 24 hr capsule 180 capsule 1 Sig: Take 2 capsules by mouth once daily Patient should start on October 11, 2024. Kate Traylor LPN documented in this encounter [facility] [place] 09-18-2024 Telephone encounter Note Call placed to [phone] [facility] pharmacy authorization line after selection made call auto transfers to [facility]. Spoke with rep Judit Noble who stated the case is pending review with internal MD Decision. Tirn around time frame is 30 business days from receipt. Per [facility] plan received appeal request on 09/10/24. Kate Traylor LPN [facility] [place] 09-18-2024 Miscellaneous Notes Call placed to [phone] [facility] pharmacy authorization line after selection made call auto transfers to [facility]. Spoke with rep Judit Noble who stated the case is pending review with internal MD Decision. Tirn around time frame is 30 business days from receipt. Per rep plan received appeal request on 09/10/24. Kate Traylor LPN Received call from patient who stated he received a letter form [facility] that he has to fill his Entyvio pen with the [facility] specialty pharmacy. Pended for submission to plan required Specialty pharmacy. Requested Prescriptions Pending Prescriptions Disp Refills vedolizumab (ENTYVIO PEN) 108 mg/0.68 mL pen 1.36 mL 2 Sig: Inject 108mg (1 pen) subcutaneously every other week. Also during call patient stated that he was advised by Julio that he is due for a 180 day appeal letter for his Skyrizi. When asked patient stated he is due for his next Skyrizi 10/03/24 Will call to check status of Entyvio pen appeal sent to patients plan 09/10/24 Kate Traylor LPN documented in this encounter [facility] [place] 09-18-2024 Telephone encounter Note Received call from patient who stated he received a letter form [facility] that he has to fill his Entyvio pen with the [facility] specialty pharmacy. Pended for submission to plan required Specialty pharmacy. Requested Prescriptions Pending Prescriptions Disp Refills vedolizumab (ENTYVIO PEN) 108 mg/0.68 mL pen 1.36 mL 2 Sig: Inject 108mg (1 pen) subcutaneously every other week. Also during call patient stated that he was advised by Julio that he is due for a 180 day appeal letter for his Skyrizi. When asked patient stated he is due for his next Skyrizi 10/03/24 Will call to check status of Entyvio pen appeal sent to patients plan 09/10/24 Kate Traylor LPN [facility] [place] 09-09-2024 Telephone encounter Note Please schedule him for CTE around end of year, thanks! [facility] [place] 09-09-2024 Miscellaneous Notes Please schedule him for CTE around end of year, thanks! documented in this encounter [facility] [place] 09-09-2024 History of Present illness Narrative VIRTUAL VISIT FOLLOW UP José Miguel Carreno JR [id number] has requested a video telemedicine follow-up visit. José Miguel Carreno JR verbalized informed consent to proceed with the video telemedicine follow-up visit. José Miguel Carreno JR was informed that the details of this video visit would be recorded as part of their electronic medical record. I have communicated my name and active licensure. The patient's identity and physical location were verified at the time of this visit. Either the patient or their legal uniforms sales representative has been informed of the risks and benefits of -- and alternatives to -- treatment through a remote evaluation and consents to proceed with the evaluation remotely. Patient location at time of call: Home Additional encounter participants and relationship: None Patient presents with: Crohns I had a virtual visit with Mr. Carreno today for follow up of Crohn's disease. UPDATED HISTORY: -Skyrizi Q4 weeks LD 2 days ago -Sub q VEDO denied -Entyvio infusions 2/2 induction doses completed -Last dose Monday last week -On 6 mg budesonide - no pred -Feeling great -Does have scrape on his leg which PCP is working to heal -> may need to see wound clinic locally Current Clinical Symptoms # of bowel movements daily: 2-3 # of liquid stools daily: 0 Consistency: loose Bloody bowel movements: no Urgency: no Abdominal pain: no Abdominal distention: no Nausea/vomiting: no Weight loss over last 3 months: no General well-being: very well Denies EIMs Denies NSAIDs Denies smoking 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 SINUS SURGERY HX FAMILY HISTORY Problem Relation Age of Onset Breast Cancer Mother bone Heart Attack Father Hypertension Father Coronary Artery Disease Father s/p CABG Hypertension Brother Social History Tobacco Use Smoking status: Never Passive exposure: Never Smokeless tobacco: Never Vaping Use Vaping status: Never Used Substance Use Topics Alcohol use: Not Currently Drug use: Never Current Outpatient Medications Medication Sig Dispense Refill vedolizumab (ENTYVIO PEN) 108 mg/0.68 mL pen Inject 108mg (1 pen) subcutaneously every other week. 1.36 mL 2 vedolizumab (ENTYVIO PEN) 108 mg/0.68 mL pen Inject 108mg (1 pen) subcutaneously every other week. 1.36 mL 2 cyanocobalamin 1,000 mcg/mL Inject 1 mL every 4 weeks then once per month following 4 mL 3 potassium chloride 20 mEq TbER Take 4 tablets by mouth once daily. 360 tablet 1 rosuvastatin (CRESTOR) 20 mg tablet Take 1 tablet by mouth daily at bedtime. 90 tablet 3 COPPER ORAL Take by mouth. risankizumab-rzaa (SKYRIZI) 360 mg/2.4 mL (150 mg/mL) wearable injector Inject 360 mg/2.4 mL subcutaneously once every 4 weeks 2.4 mL 11 metoprolol succinate ER (TOPROL XL) 25 mg 24 hr tablet Take 1 tablet by mouth two times a day. (Patient taking differently: Take 25 mg by mouth as directed. 12.5 mg AM and 25 mg PM) 180 tablet 3 lisinopril (ZESTRIL) 20 mg tablet Take 10 mg by mouth once daily. Cholecalciferol, Vitamin D3, 25 mcg (1,000 unit) cap Take by mouth q 24 HR. ferrous bis-glycinate chelate (IRON BISGLYCINATE CHELATE) 29 mg iron cap Take 1 capsule by mouth once daily. 1 capsule 5 No current facility-administered medications for this visit. ALLERGIES Allergen Reactions Imuran [Azathioprin* Other: See Comments Joint stiffness Tylenol [Acetaminop* Other: See Comments Fever and clammy PHYSICAL FINDINGS OF NOTE: General: alert and appropriate, in no distress and well-hydrated, well nourished , Psych: Appropriate mood and interaction Respiratory: breathing non-labored, and no grunting/flaring/retractions, Chest: equal chest rise with normal respiratory effort, Neuro: Patient seen sitting with normal appearing strength and coordination REVIEWED ITEMS CBC: WBC (k/uL) Date Value 08/19/2024 9.64 Hematocrit (%) Date Value 08/19/2024 42.2 MCV (fL) Date Value 08/19/2024 87.4 Platelet Count (k/uL) Date Value 08/19/2024 205 Lymphocytes % (%) Date Value 08/19/2024 19.6 Hepatic Function Panel: Albumin (g/dL) Date Value 08/19/2024 3.9 Bilirubin, Total (mg/dL) Date Value 08/19/2024 0.4 Bilirubin, Direct (mg/dL) Date Value 06/22/2022 0.6 (H) Alkaline Phosphatase (U/L) Date Value 08/19/2024 88 AST (U/L) Date Value 08/19/2024 17 ALT (U/L) Date Value 08/19/2024 18 Protein, Total (g/dL) Date Value 08/19/2024 6.2 (L) Assessment IMPRESSION (portions of this note have been copied from Dr. Moss's prior note and updated to reflect medical decision making today) 64 year old male with PMH of Crohn's disease, diagnosed in 1999's s/p ileocolonic resection, previously on infliximab, adalimumab, certolizumab, ustekinumab, vedolizumab, off label upadacitinib in 2020, currently, steroid-dependent and on rizankizumab since September 2021, currently q4, history of SMA pseudoaneurysm with massive GI bleeding, s/p coiling and embolization in 2022. #1 Crohn's disease, ileocolonic, structuring, diagnosed in 1999 #2 Status post multiple intestinal resections, most recently ileocolonic resection in 2010 #3 Small bowel dilation, increased #4 Hypokalemia, on oral supplementation #5 Lung nodule, 1.4 cm Overall, my assessment has radiographic evidence of active Crohn's disease with small bowel strictures and associated small bowel dilation, which has mildly worsened from 4.4 cm to 6 cm with question of possible superimposed fistula without abscess. However, clinically, patient feels that he is mostly asymptomatic and has been able to gain weight, discontinue prednisone, & lower budesonide to 6 mg. Regarding next steps in management, we discussed surgical option for management of stricture. However, he is not interested in considering this option to to fear of complications and short gut syndrome. He declined referral to [facility] at this time. We discussed alternative option of maximizing medical therapy by adding vedolizumab to his current regimen of risankizumab for which he has received 2/2 induction infusions. He reports feeling very well following Entyvio with improvement in symptoms and needs to continue to sub-q injections for maintenance dosing. He requires sub-q injections do to his busy lifestyle & travel. Regarding lung nodule, patient was seen in lung nodule clinic and is being followed. Biologic statement of necessity: José Miguel requires Skyrizi Q4 weeks + Entyvio q2 weeks to achieve remission, and is tolerating it with no side effects. It is medically necessary to continue these medications, including sub-q Entyvio, otherwise he is at risk of flares, ongoing use of steroids, hospitalization, and surgery. Biologics are not interchangeable. If a medication has been dose optimized and is not continued at that required dose, the patient undergoes the risk of permanent loss of response. The practice of shortening interval for biologics is well documented and considered standard of care in studies such as [facility]. 2019May 07. pii: [id number] which demonstrated at least 50% clinical response to shortening the interval of Stelara. He is a high risk patient as he has already required surgery & has been steroid dependent. He needs to continue on to sub-q Entyvio in order to help him completely stop steroids. PLAN -Continue Skyrizi Q4 weeks + sub-q Entyvio q2 week which we need to appeal -1st sub-q dose due 4 weeks from last infusion then every 2 weeks thereafter -Continue budesonide 6 mg for 4 weeks then try to decrease to 3 mg; if successful then take 3 mg for 4 weeks and try to come off or alternate 3 mg every other day then off -Stool testing (ordered again today) -CTE end of year (message sent to scheduling pool) -Follow up with Dr. Moss in Dec as scheduled Medical Decision Making: Problems: Low: Stable chronic illness Data: Unique test result(s) reviewed: 1 Unique test(s) ordered: 2 Risk: Moderate: Drug management Medical Decision Making Level: 4 - Moderate Judit Gudino APRN.CNP September 09, 2024 10:12 AM documented in this encounter [facility] [place] 09-09-2024 Note HNO ID: [id number] Author: JUDIT GUDINO APRN.CNP Service: ? Author Type: Nurse Practitioner Type: Progress Notes Filed: 09/10/2024 08:16 Note Text: VIRTUAL VISIT FOLLOW UP José Miguel Carreno JR [id number] has requested a video telemedicine follow-up visit. José Miguel Carreno JR verbalized informed consent to proceed with the video telemedicine follow-up visit. José Miguel Carreno JR was informed that the details of this video visit would be recorded as part of their electronic medical record. I have communicated my name and active licensure. The patient's identity and physical location were verified at the time of this visit. Either the patient or their legal uniforms sales representative has been informed of the risks and benefits of -- and alternatives to -- treatment through a remote evaluation and consents to proceed with the evaluation remotely. Patient location at time of call: Home Additional encounter participants and relationship: None Patient presents with: Crohns I had a virtual visit with Mr. Carreno today for follow up of Crohn's disease. UPDATED HISTORY: -Skyrizi Q4 weeks LD 2 days ago -Sub q VEDO denied -Entyvio infusions 2/2 induction doses completed -Last dose Monday last week -On 6 mg budesonide - no pred -Feeling great -Does have scrape on his leg which PCP is working to heal -> may need to see wound clinic locally Current Clinical Symptoms # of bowel movements daily: 2-3 # of liquid stools daily: 0 Consistency: loose Bloody bowel movements: no Urgency: no Abdominal pain: no Abdominal distention: no Nausea/vomiting: no Weight loss over last 3 months: no General well-being: very well Denies EIMs Denies NSAIDs Denies smoking 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 SINUS SURGERY HX FAMILY HISTORY Problem Relation Age of Onset Breast Cancer Mother bone Heart Attack Father Hypertension Father Coronary Artery Disease Father s/p CABG Hypertension Brother Social History Tobacco Use Smoking status: Never Passive exposure: Never Smokeless tobacco: Never Vaping Use Vaping status: Never Used Substance Use Topics Alcohol use: Not Currently Drug use: Never Current Outpatient Medications Medication Sig Dispense Refill vedolizumab (ENTYVIO PEN) 108 mg/0.68 mL pen Inject 108mg (1 pen) subcutaneously every other week. 1.36 mL 2 vedolizumab (ENTYVIO PEN) 108 mg/0.68 mL pen Inject 108mg (1 pen) subcutaneously every other week. 1.36 mL 2 cyanocobalamin 1,000 mcg/mL Inject 1 mL every 4 weeks then once per month following 4 mL 3 potassium chloride 20 mEq TbER Take 4 tablets by mouth once daily. 360 tablet 1 rosuvastatin (CRESTOR) 20 mg tablet Take 1 tablet by mouth daily at bedtime. 90 tablet 3 COPPER ORAL Take by mouth. risankizumab-rzaa (SKYRIZI) 360 mg/2.4 mL (150 mg/mL) wearable injector Inject 360 mg/2.4 mL subcutaneously once every 4 weeks 2.4 mL 11 metoprolol succinate ER (TOPROL XL) 25 mg 24 hr tablet Take 1 tablet by mouth two times a day. (Patient taking differently: Take 25 mg by mouth as directed. 12.5 mg AM and 25 mg PM) 180 tablet 3 lisinopril (ZESTRIL) 20 mg tablet Take 10 mg by mouth once daily. Cholecalciferol, Vitamin D3, 25 mcg (1,000 unit) cap Take by mouth q 24 HR. ferrous bis-glycinate chelate (IRON BISGLYCINATE CHELATE) 29 mg iron cap Take 1 capsule by mouth once daily. 1 capsule 5 No current facility-administered medications for this visit. ALLERGIES Allergen Reactions Imuran [Azathioprin* Other: See Comments Joint stiffness Tylenol [Acetaminop* Other: See Comments Fever and clammy PHYSICAL FINDINGS OF NOTE: General: alert and appropriate, in no distress and well-hydrated, well nourished , Psych: Appropriate mood and interaction Respiratory: breathing non-labored, and no grunting/flaring/retractions, Chest: equal chest rise with normal respiratory effort, Neuro: Patient seen sitting with normal appearing strength and coordination REVIEWED ITEMS CBC: WBC (k/uL) Date Value 08/19/2024 9.64 Hematocrit (%) Date Value 08/19/2024 42.2 MCV (fL) Date Value 08/19/2024 87.4 Platelet Count (k/uL) Date Value 08/19/2024 205 Lymphocytes % (%) Date Value 08/19/2024 19.6 Hepatic Function Panel: Albumin (g/dL) Date Value 08/19/2024 3.9 Bilirubin, Total (mg/dL) Date Value 08/19/2024 0.4 Bilirubin, Direct (mg/dL) Date Value 06/22/2022 0.6 (H) Alkaline Phosphatase (U/L) Date Value 08/19/2024 88 AST (U/L) Date Value 08/19/2024 17 ALT (U/L) Date Value 08/19/2024 18 Protein, Total (g (more content not included)... [facility] 09-05-2024 Telephone encounter Note Will work on appeal letter [facility] [place] 09-05-2024 Miscellaneous Notes Will work on appeal letter Images from the original note were not included. Chart follow up Located denial of Entyvio Pen in scanned documents Called spoke with patient assisted with scheduling a virtual visit with Judit Gudino APRN 09/09/24 10:30 am. Kate Traylor LPN documented in this encounter [facility] 09-05-2024 Telephone encounter Note Images from the original note were not included. Chart follow up Located denial of Entyvio Pen in scanned documents Called spoke with patient assisted with scheduling a virtual visit with Judit Gudino APRN 09/09/24 10:30 am. Kate Traylor LPN [facility] 08-21-2024 History of Present illness Narrative [facility] received prescription(s) for Entyvio from Dr. Jay Anand's office. Benefits investigation was conducted, indicating that a prior authorization is required by patient's insurance plan with [employer]. Encounter will be updated once prior authorization has been submitted by [facility]. [facility] P: [phone] F:[phone] documented in this encounter [facility] 08-21-2024 Note HNO ID: [id number] Author: ?, ?, ? Service: ? Author Type: ? Type: Progress Notes Filed: 08/30/2024 13:28 Note Text: Entyvio PA was initiated and pending review. Plan Name: [facility] Plan Agent/Seymour: [id number] Timeline: Standard [facility] P: [phone] F:[phone] [facility] 08-21-2024 Note HNO ID: [id number] Author: ?, ?, ? Service: ? Author Type: ? Type: Progress Notes Filed: 08/21/2024 17:38 Note Text: [facility] received prescription(s) for Entyvio from Dr. Jay Anand's office. Benefits investigation was conducted, indicating that a prior authorization is required by patient's insurance plan with [employer] [facility]. Encounter will be updated once prior authorization has been submitted by [facility]. [facility] P: [phone] F:[phone] [facility] 08-13-2024 Telephone encounter Note Done. Thank you. PATIENCE Traylor LPN [facility] 08-13-2024 Miscellaneous Notes Done. Thank you. PATIENCE Traylor LPN Routed Therapy plan to provider for signature of orders. Kate Traylor LPN Pt scheduled in [place] for infusion on 08/20. Please review and sign orders. TY. documented in this encounter [facility] 08-13-2024 Telephone encounter Note Routed Therapy plan to provider for signature of orders. Kate Traylor LPN [facility] 08-13-2024 Telephone encounter Note Pt scheduled in [place] for infusion on 08/20. Please review and sign orders. TY. [facility] 08-07-2024 Telephone encounter Note Called spoke with patient regarding this request. Patient stated he is in a flare and prefers to have some on hand. Patient has some on hand and has self dosed with 5 mg off and on since symptoms started. Time frame : off and on since 2 weeks Additional symptoms: none BM per day: 2-3 baseline Tenesmus: positive Stool consistency: soft mushy Bright Red blood: denies Rectal Pain: denies Urgency: denies Nocturnal symptoms: once Abdominal pain: positive 06/20 Type of pain: spasms Location/Constant/Intermittent: intermittent , below diaphragm Does it radiate anywhere: occasionally lower abdomen Triggers: unsure Relief: deep breathing Recent use of NSAIDS: denies Fever/Night Sweats/Chills: denies Fatigue: denies Nausea: denies Vomiting: denies Appetite: fair Patient is out of town currently. Please advise Kate Traylor LPN [facility] 08-07-2024 Miscellaneous Notes Called spoke with patient regarding this request. Patient stated he is in a flare and prefers to have some on hand. Patient has some on hand and has self dosed with 5 mg off and on since symptoms started. Time frame : off and on since 2 weeks Additional symptoms: none BM per day: 2-3 baseline Tenesmus: positive Stool consistency: soft mushy Bright Red blood: denies Rectal Pain: denies Urgency: denies Nocturnal symptoms: once Abdominal pain: positive 06/20 Type of pain: spasms Location/Constant/Intermittent: intermittent , below diaphragm Does it radiate anywhere: occasionally lower abdomen Triggers: unsure Relief: deep breathing Recent use of NSAIDS: denies Fever/Night Sweats/Chills: denies Fatigue: denies Nausea: denies Vomiting: denies Appetite: fair Patient is out of town currently. Please advise Kate Traylor LPN documented in this encounter [facility] 07-25-2024 Note HNO ID: [id number] Author: JAY PAUL MD, PhD Service: ? Author Type: Physician Type: Progress Notes Filed: 07/25/2024 21:15 Note Text: VIRTUAL VISIT FOLLOW UP José Miguel Carreno JR [id number] 1960 has requested a video telemedicine follow-up visit. José Miguel Carreno JR verbalized informed consent to proceed with the video telemedicine follow-up visit. José Miguel Carreno JR was informed that the details of this video visit would be recorded as part of their electronic medical record. I have communicated my name and active licensure. The patient's identity and physical location were verified at the time of this visit. Either the patient or their legal uniforms sales representative has been informed of the risks and benefits of -- and alternatives to -- treatment through a remote evaluation and consents to proceed with the evaluation remotely. Patient location at time of call: home Additional encounter participants and relationship: none No chief complaint on file. I had a virtual visit with Mr. Carreno today for follow up of Crohn's disease. UPDATED HISTORY: - Was seen in lung nodule clinic. CT's were reviewed and lung nodule was stable to improving. - Skyrizi every 4 weeks and budesonide 9 mg. Off prednisone since January. Had a mild flare that lasted 2 days. Patient took prednisone 5 mg once and symptoms resolved. - Patient states that he is currently back at his baseline. - CT enterography: shows stable active inflammation. However, small bowel loop dilation has worsened to 6 cm from 4.[address] enterography: 07/01/24 Small bowel: Multifocal skip strictures with mild mural hyperenhancement extending upstream from the level of the ileocolonic anastomosis (approximately 30 cm segment in total), with intermittent small bowel dilation up to 3.1 cm along the right lower ventral abdomen (3:85). Segments of skip stricturing range between 3 cm and 10-15 cm in length with luminal narrowing along the ventral lower abdominal wall, similar in severity and distribution to recent prior CT exams. Mild mural hyperenhancement likely reflects a component of superimposed active inflammation, also similar to most recent prior. The distal small bowel remains dilated upstream from the level of the start of stricturing measuring up to 6 cm, with increased caliber since recent prior and few intraluminal radiopaque pills noted within the dilated segment (3:114). Additionally, there is a matted appearance of small bowel segments near the start of the stricturing immediately adjacent to the dilated segment of distal small bowel, suspicious for mildly complex enteroenteric fistulae (3:105), however difficult to definitively defined due to decompressed segments of small bowel at this level. No associated perienteric or mesenteric abscess. Colon and Rectum: No mural hyperenhancement or wall thickening. Current Clinical Symptoms # of bowel movements daily: 2-3 # of liquid stools daily: 0 Consistency: mushy Bloody bowel movements: no Urgency: no Abdominal pain: yes, intermittent Abdominal distention: no Nausea/vomiting: no Weight loss over last 3 months: no General well-being: slightly below average 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 SINUS SURGERY HX FAMILY HISTORY Problem Relation Age of Onset Breast Cancer Mother bone Heart Attack Father Hypertension Father Coronary Artery Disease Father s/p CABG Hypertension Brother Social History Tobacco Use Smoking status: Never Passive exposure: Never Smokeless tobacco: Never Vaping Use Vaping status: Never Used Substance Use Topics Alcohol use: Not Currently Drug use: Never Current Outpatient Medications Medication Sig Dispense Refill potassium chloride 20 mEq TbER Take 4 tablets by mouth once daily. 360 tablet 1 cyanocobalamin 1,000 mcg/mL INJECT 1ML (1000MCG) DIRECTED ONCE A MONTH 3 mL 1 budesonide, enteric coated (ENTOCORT EC) 3 mg 24 hr capsule TAKE TWO CAPSULES BY MOUTH EVERY DAY 180 capsule 1 predniSONE (DELTASONE) 1 mg tablet TAKE 4 TABLETS BY MOUTH EVERY AFTERNOON 480 tablet 1 budesonide, enteric coated (ENTOCORT EC) 3 mg 24 hr capsule Take 3 capsules by mouth once daily 270 capsule 1 rosuvastatin (CRESTOR) 20 mg tablet Take 1 tablet by mouth daily at bedtime. 90 tablet 3 COPPER ORAL Take by mouth. risankizumab-rzaa (SKYRIZI) 360 mg/2.4 mL (150 mg/mL) wearable injector Inject 360 mg/2.4 mL subcutaneously once every 4 weeks 2.4 mL 11 metoprolol succinate ER (TOPROL XL) 25 mg 24 hr tablet Take 1 tablet by mouth tw (more content not included)... [facility] 07-25-2024 History of Present illness Narrative VIRTUAL VISIT FOLLOW UP José Miguel Carreno JR [id number] 1960 has requested a video telemedicine follow-up visit. José Miguel Carreno JR verbalized informed consent to proceed with the video telemedicine follow-up visit. José Miguel Carreno JR was informed that the details of this video visit would be recorded as part of their electronic medical record. I have communicated my name and active licensure. The patient's identity and physical location were verified at the time of this visit. Either the patient or their legal uniforms sales representative has been informed of the risks and benefits of -- and alternatives to -- treatment through a remote evaluation and consents to proceed with the evaluation remotely. Patient location at time of call: home Additional encounter participants and relationship: none No chief complaint on file. I had a virtual visit with Mr. Carreno today for follow up of Crohn's disease. UPDATED HISTORY: - Was seen in lung nodule clinic. CT's were reviewed and lung nodule was stable to improving. - Skyrizi every 4 weeks and budesonide 9 mg. Off prednisone since January. Had a mild flare that lasted 2 days. Patient took prednisone 5 mg once and symptoms resolved. - Patient states that he is currently back at his baseline. - CT enterography: shows stable active inflammation. However, small bowel loop dilation has worsened to 6 cm from 4.[address] enterography: 07/01/24 Small bowel: Multifocal skip strictures with mild mural hyperenhancement extending upstream from the level of the ileocolonic anastomosis (approximately 30 cm segment in total), with intermittent small bowel dilation up to 3.1 cm along the right lower ventral abdomen (3:85). Segments of skip stricturing range between 3 cm and 10-15 cm in length with luminal narrowing along the ventral lower abdominal wall, similar in severity and distribution to recent prior CT exams. Mild mural hyperenhancement likely reflects a component of superimposed active inflammation, also similar to most recent prior. The distal small bowel remains dilated upstream from the level of the start of stricturing measuring up to 6 cm, with increased caliber since recent prior and few intraluminal radiopaque pills noted within the dilated segment (3:114). Additionally, there is a matted appearance of small bowel segments near the start of the stricturing immediately adjacent to the dilated segment of distal small bowel, suspicious for mildly complex enteroenteric fistulae (3:105), however difficult to definitively defined due to decompressed segments of small bowel at this level. No associated perienteric or mesenteric abscess. Colon and Rectum: No mural hyperenhancement or wall thickening. Current Clinical Symptoms # of bowel movements daily: 2-3 # of liquid stools daily: 0 Consistency: mushy Bloody bowel movements: no Urgency: no Abdominal pain: yes, intermittent Abdominal distention: no Nausea/vomiting: no Weight loss over last 3 months: no General well-being: slightly below average 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 SINUS SURGERY HX FAMILY HISTORY Problem Relation Age of Onset Breast Cancer Mother bone Heart Attack Father Hypertension Father Coronary Artery Disease Father s/p CABG Hypertension Brother Social History Tobacco Use Smoking status: Never Passive exposure: Never Smokeless tobacco: Never Vaping Use Vaping status: Never Used Substance Use Topics Alcohol use: Not Currently Drug use: Never Current Outpatient Medications Medication Sig Dispense Refill potassium chloride 20 mEq TbER Take 4 tablets by mouth once daily. 360 tablet 1 cyanocobalamin 1,000 mcg/mL INJECT 1ML (1000MCG) DIRECTED ONCE A MONTH 3 mL 1 budesonide, enteric coated (ENTOCORT EC) 3 mg 24 hr capsule TAKE TWO CAPSULES BY MOUTH EVERY DAY 180 capsule 1 predniSONE (DELTASONE) 1 mg tablet TAKE 4 TABLETS BY MOUTH EVERY AFTERNOON 480 tablet 1 budesonide, enteric coated (ENTOCORT EC) 3 mg 24 hr capsule Take 3 capsules by mouth once daily 270 capsule 1 rosuvastatin (CRESTOR) 20 mg tablet Take 1 tablet by mouth daily at bedtime. 90 tablet 3 COPPER ORAL Take by mouth. risankizumab-rzaa (SKYRIZI) 360 mg/2.4 mL (150 mg/mL) wearable injector Inject 360 mg/2.4 mL subcutaneously once every 4 weeks 2.4 mL 11 metoprolol succinate ER (TOPROL XL) 25 mg 24 hr tablet Take 1 tablet by mouth two times a day. (Patient taking differently: Take 25 mg by mouth as directed. 12.5 mg AM and 25 mg PM) 180 tablet 3 lisinopril (ZESTRIL) 20 mg tablet Take 10 mg by mouth once daily. predniSONE (DELTASONE) 5 mg tablet take 1 tablet by mouth once daily 30 tablet 2 Cholecalciferol, Vitamin D3, 25 mcg (1,000 unit) cap Take by mouth q 24 HR. ferrous bis-glycinate chelate (IRON BISGLYCINATE CHELATE) 29 mg iron cap Take 1 capsule by mouth once daily. 1 capsule 5 No current facility-administered medications for this visit. ALLERGIES Allergen Reactions Imuran [Azathioprin* Other: See Comments Joint stiffness Tylenol [Acetaminop* Other: See Comments Fever and clammy PHYSICAL FINDINGS OF NOTE: General: alert and appropriate, in no distress and well-hydrated, well nourished , Psych: Appropriate mood and interaction Skin: no rash noted, Neck: full ROM, no cervical LNs noted, Respiratory: breathing non-labored, and no grunting/flaring/retractions, Chest: equal chest rise with normal respiratory effort, Neuro: Patient seen sitting with normal appearing strength and coordination REVIEWED ITEMS CBC: WBC (k/uL) Date Value 06/19/2024 11.17 (H) Hematocrit (%) Date Value 06/19/2024 41.5 MCV (fL) Date Value 06/19/2024 87.0 Platelet Count (k/uL) Date Value 06/19/2024 254 Lymphocytes % (%) Date Value 06/19/2024 18.7 Hepatic Function Panel: Albumin (g/dL) Date Value 06/19/2024 3.9 Bilirubin, Total (mg/dL) Date Value 06/19/2024 0.3 Bilirubin, Direct (mg/dL) Date Value 06/22/2022 0.6 (H) Alkaline Phosphatase (U/L) Date Value 06/19/2024 92 AST (U/L) Date Value 06/19/2024 17 ALT (U/L) Date Value 06/19/2024 19 Protein, Total (g/dL) Date Value 06/19/2024 6.2 (L) Assessment IMPRESSION José Miguel Carreno JR is a 63 year old male with PMH of Crohn's disease, diagnosed in 1999's s/p ileocolonic resection, previously on infliximab, adalimumab, certolizumab, ustekinumab, vedolizumab, off label upadacitinib in 2020, currently, steroid-dependent and on rizankizumab since September 2021, currently q4, history of SMA pseudoaneurysm with massive GI bleeding, s/p coiling and embolization in 2022, coming in today for follow up. #1 Crohn's disease, ileocolonic, structuring, diagnosed in 1999 #2 Status post multiple intestinal resections, most recently ileocolonic resection in 2010 #3 Small bowel dilation, increased #4 Hypokalemia, on oral supplementation #5 Lung nodule, 1.4 cm Overall, my assessment has radiographic evidence of active Crohn's disease with small bowel strictures and associated small bowel dilation, which has mildly worsened from 4.4 cm to 6 cm with question of possible superimposed fistula without abscess. However, clinically, patient feels that he is mostly asymptomatic and has been able to gain weight, discontinue prednisone. Currently, he is on budesonide 9 mg and Skyrizi q 4 weeks. Regarding next steps in management, we discussed surgical option for management of stricture. However, he is not interested in considering this option to to fear of complications and short gut syndrome. He declined referral to [facility] at this time. We discussed alternative option of maximizing medical therapy by adding vedolizumab to his current regimen of risankizumab, which he is open to. Regarding lung nodule, patient was seen in lung nodule clinic and is being followed. PLAN - Start vedolizumab. Patient prefers SQ option. He is aware of IV induction doses first. - Follow up in 3 months. - Repeat CTE in 6 months. I spent 30 minutes in the virtual visit, with more than 50% of the total [id number] time of the visit in counseling / coordination of care. I have confirmed and edited as necessary, the PFSH and ROS obtained by others. I will communicate my recommendations and prescriptions to the patient's primary care provider. Unrelated to E/M, telemedicine, or virtual visit service provided within previous 7 days. No E/M service or procedure anticipated within next 24 hours. Jay Anand MD, PhD July 25, 2024 2:30 PM documented in this encounter [facility] 07-24-2024 Telephone encounter Note Requested Prescriptions Pending Prescriptions Disp Refills potassium chloride 20 mEq TbER [Pharmacy Med Name: POTASSIUM CHLORIDE ER 20MEQ TBCR] 270 tablet 1 Sig: TAKE THREE TABLETS BY MOUTH EVERY DAY Refill not appropriate. New rx sent 07/09/24 to [facility], 360 tablets with 1 refill, good for 6 months. Will deny current request Jennie Borrego RN Account Development Executive, IBD [facility] 07-24-2024 Miscellaneous Notes Requested Prescriptions Pending Prescriptions Disp Refills potassium chloride 20 mEq TbER [Pharmacy Med Name: POTASSIUM CHLORIDE ER 20MEQ TBCR] 270 tablet 1 Sig: TAKE THREE TABLETS BY MOUTH EVERY DAY Refill not appropriate. New rx sent 07/09/24 to [facility], 360 tablets with 1 refill, good for 6 months. Will deny current request Jennie Borrego RN Account Development Executive, IBD documented in this encounter [facility] 07-23-2024 History of Present illness Narrative Images from the original note were not included. [facility] VIRTUAL VIDEO VISIT ESTABLISHED OUTPATIENT VISIT SERVICE DATE: 07/23/2024 Patient: José Miguel Carreno JR SERVICE TIME: 4:49 PM : 1960 This is a virtual video visit. It required patient-provider interaction for the medical decision making as documented below. José Miguel Carreno JR has consented to this video encounter. I have communicated my name and active licensure. The patient's identity and physical location were verified at the time of this visit. Either the patient or their legal uniforms sales representative has been informed of the risks and benefits of -- and alternatives to -- treatment through a remote evaluation and consents to proceed with the evaluation remotely. José Miguel Carreno JR is a 64 year old male seen for SVT and device management. CHIEF COMPLAINT Device management, SVT HISTORY OF PRESENT ILLNESS José Miguel Carreno JR is a 64 year old male who presents for follow up for SVT and device management. He was last seen in office 07/25/2023. 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 His cardiomyopathy was diagnosed in the context of VFib arrest while he was having a severe Crohn's disease exacerbation with hypokalemia. Echo showed EF=50-55%. Cath showed normal coronaries. Zio 12/2022 showed SVT lasting 25 seconds which appeared to be a long RP tachycardia presumably atrial tachycardia. Device check (single-lead with atrial sensing) at that time showed ventricular detections with one-to-one tachycardia with sudden onset and offset with morphology that was similar to sinus suggestive of SVT. At the time his beta-erica was increased to metoprolol succinate 25 mg twice daily. At his last visit his metoprolol was reduced to 12.5 mg AM and 25 mg PM due to increased lethargy. Echo showed EF=55% He reports he has been doing well overall. He denies chest pain, shortness of breath, palpitations, lightheadedness or syncope. 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 SINUS SURGERY HX FAMILY HISTORY Problem Relation Age of Onset Breast Cancer Mother bone Heart Attack Father Hypertension Father Coronary Artery Disease Father s/p CABG Hypertension Brother Social History Tobacco Use Smoking status: Never Passive exposure: Never Smokeless tobacco: Never Vaping Use Vaping status: Never Used Substance Use Topics Alcohol use: Not Currently Drug use: Never ALLERGIES Allergen Reactions Imuran [Azathioprin* Other: See Comments Joint stiffness Tylenol [Acetaminop* Other: See Comments Fever and clammy CURRENT MEDICATIONS potassium chloride 20 mEq TbER Take 4 tablets by mouth once daily. cyanocobalamin 1,000 mcg/mL INJECT 1ML (1000MCG) DIRECTED ONCE A MONTH budesonide, enteric coated (ENTOCORT EC) 3 mg 24 hr capsule TAKE TWO CAPSULES BY MOUTH EVERY DAY predniSONE (DELTASONE) 1 mg tablet TAKE 4 TABLETS BY MOUTH EVERY AFTERNOON budesonide, enteric coated (ENTOCORT EC) 3 mg 24 hr capsule Take 3 capsules by mouth once daily rosuvastatin (CRESTOR) 20 mg tablet Take 1 tablet by mouth daily at bedtime. COPPER ORAL Take by mouth. risankizumab-rzaa (SKYRIZI) 360 mg/2.4 mL (150 mg/mL) wearable injector Inject 360 mg/2.4 mL subcutaneously once every 4 weeks metoprolol succinate ER (TOPROL XL) 25 mg 24 hr tablet Take 1 tablet by mouth two times a day. lisinopril (ZESTRIL) 20 mg tablet Take 10 mg by mouth once daily. predniSONE (DELTASONE) 5 mg tablet take 1 tablet by mouth once daily Cholecalciferol, Vitamin D3, 25 mcg (1,000 unit) cap Take by mouth q 24 HR. ferrous bis-glycinate chelate (IRON BISGLYCINATE CHELATE) 29 mg iron cap Take 1 capsule by mouth once daily. Delfina Meza RN PHYSICAL EXAMINATION: VIDEO EXAM: (if completed, performed via video enabled technology) No exam performed PATIENT ENTERED QUESTIONNAIRE SCORES 07/18/2023 PHQ-9 PHQ-2 Score 0 PHQ-9 Score 2 07/18/2024 04/25/2024 10/22/2023 PROMIS Global Health - (T-Scores - the mean of general population = 50. Five points is a clinically meaningful difference.) Physical T-Score 57.7 50.8 50.8 Mental T-Score 48.3 53.3 50.8 Echo 07/25/2023 CONCLUSIONS: - Exam indication: Cardiomyopathy - The left ventricle is normal in size. Left ventricular systolic function is normal. EF = 55 5% (2D biplane) Normal left ventricular diastolic function. - The right ventricle is mildly dilated. Right ventricular systolic function is normal. - The visualized aorta is dilated with a maximal dimension of 4.1 cm. - Trivial MR. - Trivial to 1+ TR. - Estimated right ventricular systolic pressure is likely underestimated due to a weak or incomplete tricuspid regurgitation signal and is, at least, 30 mmHg consistent with normal pulmonary artery pressures. Estimated right atrial pressure is 8 mmHg based on IVC assessment. - The patient has not had a prior CC echocardiographic exam for comparison. Last NIYA Result Last EKG Result Last EKG Result Conclusion ECG COMPLETE Collected: 07/25/2023 8:09 AM (Preliminary result) Impression: NORMAL SINUS RHYTHM NORMAL ECG [facility] Enrollment Dates: 11/02/2022-11/16/2022 Patient had a min HR of 55 bpm, max HR of 245 bpm, and avg HR of 85 bpm. Predominant underlying rhythm was Sinus Rhythm. 63 Supraventricular Tachycardia runs occurred, the run with the fastest interval lasting 10 beats with a max rate of 245 bpm, the longest lasting 25.1 secs with an avg rate of 127 bpm. Isolated SVEs were occasional (1.2%, [id number]), SVE Couplets were rare (<1.0%, 281), and SVE Triplets were rare (<1.0%, 68). Isolated VEs were rare (<1.0%), VE Couplets were rare (<1.0%), and no VE Triplets were present. Ventricular Bigeminy and Trigeminy were present. OUTSIDE TESTING ECHO 01/06/2020 Cardiac cath 01/07/2020 Normal coronaries Cardiac MRI 01/08/2020 ASSESSMENT: Mr. Carreno is a 63 year old male who presents for follow-up visit for SVT and device management. 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 He was last seen by me 12/2022 after he had a ZIO showing SVT lasting 25 seconds which appeared to be a long RP tachycardia presumably atrial tachycardia. Device check (single-lead with atrial sensing) at that time showed ventricular detections with one-to-one tachycardia with sudden onset and offset with morphology that was similar to sinus suggestive of SVT. At the time his beta-erica was increased to metoprolol succinate 25 mg twice daily. Today he notes significant improvement in symptoms with medical management with beta-erica and there were no significant tachyarrhythmia detections on interrogation today. He denies any palpitations, lightheadedness, dizziness, syncope. He does note some increased lethargy with uptitration of metoprolol. As such advised to reduce metoprolol to 12.5mg in AM and 25mg in PM, has done well since then Note, prior to Vfib arrest there was mention of RV dyplasia per chart review, he had cMRI at [facility] 01/09/2020 which was not consistent with ARVC. Plan: - cont metop to 12.5mg in AM, 25mg in PM due to lethargy - continue q3 month remote transmissions and yearly follow up for device management ] - Last remote device check with NSVT, 85% battery until AMERICO I personally spent 15 minutes in total time involved in the management and care of this patient. July 23, 2024 9:46 AM documented in this encounter [facility] 07-23-2024 Note HNO ID: [id number] Author: DREAD FAY MD Service: ? Author Type: Physician Type: Progress Notes Filed: 08/18/2024 11:12 Note Text: [facility] V[facility] Department of Cardiovascular Medicine VIRTUAL VIDEO VISIT ESTABLISHED OUTPATIENT VISIT SERVICE DATE: 07/23/2024 Patient: José Miguel Carreno JR SERVICE TIME: 4:49 PM : 1960 This is a virtual video visit. It required patient-provider interaction for the medical decision making as documented below. José Miguel Carreno JR has consented to this video encounter. I have communicated my name and active licensure. The patient's identity and physical location were verified at the time of this visit. Either the patient or their legal uniforms sales representative has been informed of the risks and benefits of -- and alternatives to -- treatment through a remote evaluation and consents to proceed with the evaluation remotely. José Miguel Carreno JR is a 64 year old male seen for SVT and device management. CHIEF COMPLAINT Device management, SVT HISTORY OF PRESENT ILLNESS José Miguel Carreno JR is a 64 year old male who presents for follow up for SVT and device management. He was last seen in office 07/25/2023. 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 His cardiomyopathy was diagnosed in the context of VFib arrest while he was having a severe Crohn's disease exacerbation with hypokalemia. Echo showed EF=50-55%. Cath showed normal coronaries. Zio 12/2022 showed SVT lasting 25 seconds which appeared to be a long RP tachycardia presumably atrial tachycardia. Device check (single-lead with atrial sensing) at that time showed ventricular detections with one-to-one tachycardia with sudden onset and offset with morphology that was similar to sinus suggestive of SVT. At the time his beta-erica was increased to metoprolol succinate 25 mg twice daily. At his last visit his metoprolol was reduced to 12.5 mg AM and 25 mg PM due to increased lethargy. Echo showed EF=55% He reports he has been doing well overall. He denies chest pain, shortness of breath, palpitations, lightheadedness or syncope. 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 SINUS SURGERY HX FAMILY HISTORY Problem Relation Age of Onset Breast Cancer Mother bone Heart Attack Father Hypertension Father Coronary Artery Disease Father s/p CABG Hypertension Brother Social History Tobacco Use Smoking status: Never Passive exposure: Never Smokeless tobacco: Never Vaping Use Vaping status: Never Used Substance Use Topics Alcohol use: Not Currently Drug use: Never ALLERGIES Allergen Reactions Imuran [Azathioprin* Other: See Comments Joint stiffness Tylenol [Acetaminop* Other: See Comments Fever and clammy CURRENT MEDICATIONS potassium chloride 20 mEq TbER Take 4 tablets by mouth once daily. cyanocobalamin 1,000 mcg/mL INJECT 1ML (1000MCG) DIRECTED ONCE A MONTH budesonide, enteric coated (ENTOCORT EC) 3 mg 24 hr capsule TAKE TWO CAPSULES BY MOUTH EVERY DAY predniSONE (DELTASONE) 1 mg tablet TAKE 4 TABLETS BY MOUTH EVERY AFTERNOON budesonide, enteric coated (ENTOCORT EC) 3 mg 24 hr capsule Take 3 capsules by mouth once daily rosuvastatin (CRESTOR) 20 mg tablet Take 1 tablet by mouth daily at bedtime. COPPER ORAL Take by mouth. risankizumab-rzaa (SKYRIZI) 360 mg/2.4 mL (150 mg/mL) wearable injector Inject 360 mg/2.4 mL subcutaneously once every 4 weeks metoprolol succinate ER (TOPROL XL) 25 mg 24 hr tablet Take 1 tablet by mouth two times a day. lisinopril (ZESTRIL) 20 mg tablet Take 10 mg by mouth once daily. predniSONE (DELTASONE) 5 mg tablet take 1 tablet by mouth once daily Cholecalciferol, Vitamin D3, 25 mcg (1,000 unit) cap Take by mouth q 24 HR. ferrous bis-glycinate chelate (IRON BISGLYCINATE CHELATE) 29 mg iron cap Take 1 capsule by mouth once daily. Delfina Meza RN PHYSICAL EXAMINATION: VIDEO EXAM: (if completed, performed via video enabled technology) No exam performed PATIENT ENTERED QUESTIONNAIRE SCORES 07/18/2023 PHQ-9 PHQ-2 Score 0 PHQ-9 Score 2 07/18/2024 04/25/2024 10/22/2023 PROMIS Global Health - (T-Scores - the mean of general population = 50. Five points is a clinically meaningful difference.) Physical T-Score 57.7 50.8 50.8 Mental T-Score 48.3 53.3 50.8 Echo 07/25/2023 CONCLUSIONS: - Exam indication: Cardiomyopathy - Th (more content not included)... [facility] 07-19-2024 Telephone encounter Note Appointment scheduled [facility] [place] 07-19-2024 Miscellaneous Notes Appointment scheduled Spoke with patient regarding review of outside images CT Chest 01/07/2020 from [facility] - there is an area of nodular thickening in a similar area as the identified nodule on the CT enterography imaging 07/01/2024. Recommend CT surveillance in three months with CT Chest. documented in this encounter [facility] 07-19-2024 Telephone encounter Note Spoke with patient regarding review of outside images CT Chest 01/07/2020 from [facility] - there is an area of nodular thickening in a similar area as the identified nodule on the CT enterography imaging 07/01/2024. Recommend CT surveillance in three months with CT Chest. [facility] 07-08-2024 Telephone encounter Note Requested Prescriptions Pending Prescriptions Disp Refills potassium chloride 20 mEq TbER 360 tablet 1 Sig: Take 4 tablets by mouth once daily. Kate Traylor LPN [facility] 07-08-2024 Miscellaneous Notes Requested Prescriptions Pending Prescriptions Disp Refills potassium chloride 20 mEq TbER 360 tablet 1 Sig: Take 4 tablets by mouth once daily. Kate Traylor LPN Jay Paul MD, PhD to Me 07/02/24 3:17 PM Hi Kate, Can you let him know that since he is feeling unwell with the higher dose of the potassium, he can go back to the previous dose, but I would like to repeat potassium 1 week after. Thanks, MB Potassium serum lab order pended please advise. Kate Traylor LPN documented in this encounter [facility] 07-04-2024 Instructions Richard Lawrence APRN.SJ - 07/04/2024 4:05 PM EDT Richard Lawrence APRN.CLIENT MANAGER [phone] documented in this encounter [facility] 07-04-2024 Note HNO ID: [id number] Author: RICHARD LAWRENCE APRN.SJ Service: ? Author Type: Nurse Practitioner Type: Progress Notes Filed: 07/11/2024 10:52 Note Text: [facility] INCIDENTAL LUNG NODULE PROGRAM Impression / Recommendations Lung Nodule: There is a LLL 1.[address] identified on [address] Enterography 07/01/2024 imaging. This nodule has a 6.8% risk of malignancy in a never smoker with no personal history of cancer or family history of lung cancer. Plan to obtain prior CT Chest images from the [facility] 01/07/2020 for comparison. -- Requesting Provider: Jay Anand Reason for the Consult José Miguel Carreno JR presents today for consultation / opinion regarding lung nodule(s). My impression and final recommendations will be communicated back to the requesting physician by way of shared medical record or letter via US mail. History of Present Illness José Miguel Carreno JR is a 64 year old male with a pertinent past medical history significant for No history of tobacco abuse, cardiac arrest, AICD, CHF, Crohn's disease, dyslipidemia, GERD, HTN who is being seen as a new consultation for evaluation of a lung nodule(s). José Miguel Carreno JR had a CT Enterography on 07/01/2024 for the indication of Crohn's disease. 1 nodule were detected Incidentally. The nodule of greatest concern is a Solid 14 mm nodule with a Irregular border in the Left lower lobe of the lung. Prior imaging: (Yes What type of prior imaging? CT Scan Chest 01/07/2020 [facility] Was the nodule of concern seen on prior imaging? No) - images unavailable for review at the time of office visit. Respiratory symptoms include: SOB: No Chest tightness: No Coughing: No Hemoptysis: No Wheezing: No Fever/Chills: No Recent Respiratory Infection: Yes - March 2024. Had Covid September 2023 treated with Paxlovid. Unintentional weight loss: No Last 6 Encounter Wt Readings: Date: Wt: 07/04/2024 96.6 kg (213 lb) 01/04/2024 96.2 kg (212 lb) 07/25/2023 97.1 kg (214 lb) 07/25/2023 97.1 kg (214 lb) 12/13/2022 95.7 kg (211 lb) 10/12/2022 93.3 kg (205 lb 9.6 oz) Modified Medical Research [place] Dyspnea Scale (MMRC) I only get breathless with strenous exercise 0 Other Pertinent Clinical Risk Factors: Significant exposures (1 year or more of exposure): None. 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 Recent travel history: [facility] and [facility] in March 2024. Animal exposure: No animals in the home currently. No chickens or birds. Second hand smoke exposure: Yes as a child. Does the patient have a prior history malignancy? No BCC skin CA face Does the patient have a family history of lung cancer? No - questionable history of lung cancer in uncle Malignancy Risk ([facility] model) Lung Nodule Calculator: (if applicable) 6% risk of malignancy. Problem List, History, Medications and allergies have been reviewed from the [facility] electronic medical record and any appropriate up-dates have been made. Physical Exam BP 143/93 (BP Site: Left Arm, BP Position: Sitting, BP Cuff Size: Regular Adult) Pulse 94 Ht 193 cm (6' 4 ) Wt 96.6 kg (213 lb) SpO2 98% BMI 25.93 kg/m? General Appearance: Well appearing, alert, in no acute distress, well-hydrated, well nourished.. Lungs: Lungs clear to auscultation. No wheezing, rhonchi, rales.. Heart: RRR without murmur, gallop, or rubs. No ectopy. Diagnostic Data I have personally visualized, reviewed and analyzed the findings on pulmonary function testing and radiographs. Last CT/CTA Chest/Lungs CT CHEST W IVCON Collected: 01/07/2020 1:20 PM (Final result) Narrative: [facility] Department of Radiology [address] [place] [phone] ======== Patient Name: JOSÉ MIGUEL CARRENO : 1960 Sex: M Age: Race: WhiteWhite Pt. Location: [address] [place] [address] Patient Status: I Ordered Date: 01/07/2020 11:50:00 AM Completed Date: 01/07/2020 01:20 PM Requesting Provider: KEVIN BOUDREAUX Attending Provider: PRISCILLA QUIROZ Report Copy To: Signs AND Symptoms: Infiltrates History: See Comments Comments: Infiltrates, sespis; fever; SOB Exam: CT CHEST W CONTRAST ======== CT CHEST W CONTRAST 01/07/2020 1:20 PM CLINICAL INDICATIONS: Infiltrates TECHNOLOGIST COMMENTS: pt with fever, SOB with decreased O2 sats. S/p - cath procedure QUESTION FOR THE RADIOLOGIST: Infiltrates, sespis; fever; SOB PROTOCOL: Axial CT images of the chest were obtained with IV contrast. CONTRAST: Contrast: OMNIPAQUE 350 (LOCM), 100 milliliter, Intravenous TECHNIQUE: Multiple detector CT axial slices of the (more content not included)... [facility] 07-04-2024 History of Present illness Narrative Images from the original note were not included. [facility] INCIDENTAL LUNG NODULE PROGRAM Impression / Recommendations Lung Nodule: There is a LLL 1.4 cm nodule identified on CT Enterography 07/01/2024 imaging. This nodule has a 6.8% risk of malignancy in a never smoker with no personal history of cancer or family history of lung cancer. Plan to obtain prior CT Chest images from the [facility] 01/07/2020 for comparison. Requesting Provider: Jay Anand Reason for the Consult José Miguel Carreno JR presents today for consultation / opinion regarding lung nodule(s). My impression and final recommendations will be communicated back to the requesting physician by way of shared medical record or letter via US mail. History of Present Illness José Miguel Carreno JR is a 64 year old male with a pertinent past medical history significant for No history of tobacco abuse, cardiac arrest, AICD, CHF, Crohn's disease, dyslipidemia, GERD, HTN who is being seen as a new consultation for evaluation of a lung nodule(s). José Miguel Carreno JR had a CT Enterography on 07/01/2024 for the indication of Crohn's disease. 1 nodule were detected Incidentally. The nodule of greatest concern is a Solid 14 mm nodule with a Irregular border in the Left lower lobe of the lung. Prior imaging: (Yes What type of prior imaging? CT Scan Chest 01/07/2020 [facility] Was the nodule of concern seen on prior imaging? No) - images unavailable for review at the time of office visit. Respiratory symptoms include: SOB: No Chest tightness: No Coughing: No Hemoptysis: No Wheezing: No Fever/Chills: No Recent Respiratory Infection: Yes - March 2024. Had Covid September 2023 treated with Paxlovid. Unintentional weight loss: No Last 6 Encounter Wt Readings: Date: Wt: 07/04/2024 96.6 kg (213 lb) 01/04/2024 96.2 kg (212 lb) 07/25/2023 97.1 kg (214 lb) 07/25/2023 97.1 kg (214 lb) 12/13/2022 95.7 kg (211 lb) 10/12/2022 93.3 kg (205 lb 9.6 oz) Modified Medical Research [place] Dyspnea Scale (MMRC) I only get breathless with strenous exercise 0 Other Pertinent Clinical Risk Factors: Significant exposures (1 year or more of exposure): None. 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 Recent travel history: [facility] in March 2024. Animal exposure: No animals in the home currently. No chickens or birds. Second hand smoke exposure: Yes as a child. Does the patient have a prior history malignancy? No BCC skin CA face Does the patient have a family history of lung cancer? No - questionable history of lung cancer in uncle Malignancy Risk ([facility] model) Lung Nodule Calculator: (if applicable) 6% risk of malignancy. Problem List, History, Medications and allergies have been reviewed from the [facility] electronic medical record and any appropriate up-dates have been made. Physical Exam BP 143/93 (BP Site: Left Arm, BP Position: Sitting, BP Cuff Size: Regular Adult) Pulse 94 Ht 193 cm (6' 4 ) Wt 96.6 kg (213 lb) SpO2 98% BMI 25.93 kg/m General Appearance: Well appearing, alert, in no acute distress, well-hydrated, well nourished.. Lungs: Lungs clear to auscultation. No wheezing, rhonchi, rales.. Heart: RRR without murmur, gallop, or rubs. No ectopy. Diagnostic Data I have personally visualized, reviewed and analyzed the findings on pulmonary function testing and radiographs. Last CT/CTA Chest/Lungs CT CHEST W IVCON Collected: 01/07/2020 1:20 PM (Final result) Narrative: [facility] Department of Radiology [address] [place] [phone] ========Patient Name: JOSÉ MIGUEL CARRENO : 1960 Sex: M Age: Race: White^White Pt. Location: [address] [place] [address] Patient Status: I Ordered Date: 01/07/2020 11:50:00 AM Completed Date: 01/07/2020 01:20 PM Requesting Provider: KEVIN BOUDREAUX Attending Provider: PRISCILLA QUIROZ Report Copy To: Signs & Symptoms: Infiltrates History: See Comments Comments: Infiltrates, sespis; fever; SOB Exam: CT CHEST W CONTRAST ========CT CHEST W CONTRAST 01/07/2020 1:20 PM CLINICAL INDICATIONS: Infiltrates TECHNOLOGIST COMMENTS: pt with fever, SOB with decreased O2 sats. S/p - cath procedure QUESTION FOR THE RADIOLOGIST: Infiltrates, sespis; fever; SOB PROTOCOL: Axial CT images of the chest were obtained with IV contrast. CONTRAST: Contrast: OMNIPAQUE 350 (LOCM), 100 milliliter, Intravenous TECHNIQUE: Multiple detector CT axial slices of the chest were obtained with IV contrast. Multiplanar reformats were performed and viewed on a separate workstation and reviewed to further define anatomy and possible pathology. COMPARISON: None. FINDINGS: The thyroid and the thoracic inlet appear unremarkable. The central airways are patent. The thoracic aorta is without aneurysm or dissection. The pulmonary arteries appear normal in caliber, without evidence for aneurysm. Minimal coronary artery calcification, no cardiomegaly or pericardial effusion. No mediastinal adenopathy or hematoma. No pneumothorax, pleural effusion or pleural calcification. Linear scarring present in both lower lobes. Pulmonary nodularity identified. The chest wall appears unremarkable. The study continued in the upper abdomen shows no additional abnormality. The study viewed at bone window reveals the presence of a hemangioma in the body of T9. Impression: Linear scarring present in both lower lobes. No evidence of pulmonary embolus or olga pneumonia. All CT scans at this facility use dose modulation, iterative reconstruction, and/or weight based dosing when appropriate to reduce radiation dose to as low as reasonably achievable Electronically signed: Ollie Gonsalves. Transcribed by: [email or web address], User Resident: Electronically Signed by: OLLIE GONSALVES @ 01/07/2020 02:05 PM Impression / Recommendations To optimize physician communication via the electronic health record, the Impression & Recommendations section has been placed at the beginning of this note. ------ Richard Lawrence APRN.[facility] Pulmonary & Critical Care Medicine July 04, 2024 3:30 PM Follow Up Diagnosis: Lung Nodule Recommendation: Other Follow up Date: 07/18/2024 Follow-Up Scheduled: No Pulmonary Follow-Up Type: Lung Nodule Surveillance Enrolled in Lung Nodule program: Yes Lung Nodule Program Location: [facility] Obtain images from [facility] CT Chest 01/07/2020. documented in this encounter [facility] 07-03-2024 Note HNO ID: [id number] Author: FABIANO AWAD HUC Service: ? Author Type: Copier Operator Type: Progress Notes Filed: 07/03/2024 08:40 Note Text: Incidental Lung Nodule Enrollment Outreach attempt: 1st Attempt Outreach status: Complete Enrolled in Lung Nodule program: Yes Date of enrollment: 07/03/2024 Lung Nodule outreach: Enrolled Lung Nodule Program Location: [place] 07/04/24 scheduled [facility] 07-03-2024 History of Present illness Narrative Incidental Lung Nodule Enrollment Outreach attempt: 1st Attempt Outreach status: Complete Enrolled in Lung Nodule program: Yes Date of enrollment: 07/03/2024 Lung Nodule outreach: Enrolled Lung Nodule Program Location: [place] 07/04/24 scheduled documented in this encounter [facility] 07-03-2024 Telephone encounter Note Jay Paul MD, PhD to Me 07/02/24 3:17 PM Javy Mart, Can you let him know that since he is feeling unwell with the higher dose of the potassium, he can go back to the previous dose, but I would like to repeat potassium 1 week after. Thanks, MB Potassium serum lab order pended please advise. Kate Traylor LPN [facility] 07-03-2024 Note Patient Outreach ([facility]) JOSÉ MIGUEL CARRENO ([id number]) 1960 M [place] Date Time Provider Department 07/03/24 FABIANO AWAD During your visit today, we recorded the following information about you: Fabiano Awad HUC 07/03/2024 8:40 AM Signed Incidental Lung Nodule Enrollment Outreach attempt: 1st Attempt Outreach status: Complete Enrolled in Lung Nodule program: Yes Date of enrollment: 07/03/2024 Lung Nodule outreach: Enrolled Lung Nodule Program Location: [place] 07/04/24 scheduled Allergies As of Date: 07/03/2024 Noted Allergy Reaction IMURAN (AZATHIOPRINE) 06/21/2022 14 - Other: See Comments Comments: Joint stiffness TYLENOL (ACETAMINOPHEN) 06/21/2022 14 - Other: See Comments Comments: Fever and clammy Date Reviewed: 07/01/2024 Reviewed by: Judit Morse, RT(R) - Fully Assessed Prescriptions as of 07/03/2024 - cyanocobalamin 1,000 mcg/mL INJECT 1ML (1000MCG) DIRECTED ONCE A MONTH - potassium chloride 20 mEq TbER TAKE THREE TABLETS BY MOUTH EVERY DAY - budesonide, enteric coated (ENTOCORT EC) 3 mg 24 hr capsule TAKE TWO CAPSULES BY MOUTH EVERY DAY - predniSONE (DELTASONE) 1 mg tablet TAKE 4 TABLETS BY MOUTH EVERY AFTERNOON - budesonide, enteric coated (ENTOCORT EC) 3 mg 24 hr capsule Take 3 capsules by mouth once daily - rosuvastatin (CRESTOR) 20 mg tablet Take 1 tablet by mouth daily at bedtime. - COPPER ORAL Take by mouth. - risankizumab-rzaa (SKYRIZI) 360 mg/2.4 mL (150 mg/mL) wearable injector Inject 360 mg/2.4 mL subcutaneously once every 4 weeks - metoprolol succinate ER (TOPROL XL) 25 mg 24 hr tablet Take 1 tablet by mouth two times a day. - lisinopril (ZESTRIL) 20 mg tablet Take 10 mg by mouth once daily. - predniSONE (DELTASONE) 5 mg tablet take 1 tablet by mouth once daily - potassium chloride (K-TAB) 10 mEq tablet Take 1 tablet by mouth once daily. - Cholecalciferol, Vitamin D3, 25 mcg (1,000 unit) cap Take by mouth q 24 HR. - ferrous bis-glycinate chelate (IRON BISGLYCINATE CHELATE) 29 mg iron cap Take 1 capsule by mouth once daily. 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 Author Type: Technologist Type: Procedures Filed: 07/01/2024 10:00 Note Text: Radiology Service Progress Note DATE OF SERVICE: July 01, 2024 TIME: 9:01 AM PATIENT IDENTITY VERIFICATION COMPLETED USING TWO (2) STANDARD IDENTIFIERS: Name and Date of confirmed by patient verbally and Name and Date of confirmed by identification band. FALL SCREENING: Has the patient had 2 falls in the last year or 1 fall with injury or currently using an Ambulatory Assistive Device (Walker, Cane, Wheelchair, Crutches, etc.)? No PATIENT GENDER DATA: Assigned male at PATIENT RELEVANT IMPLANT DATA REVIEWED: Not Applicable PATIENT PRESENTS WITH AN IMPLANTABLE OR ATTACHED DOFFER: No ALLERGIES: Reviewed and unchanged CONTRAST ALLERGY: NO. EXAM: CT -CONTRAST INDUCED NEPHROPATHY RISK FACTORS: Patient age > 60 years CREATININE: Creatinine Date Value Ref Range Status 06/27/2024 1.13 0.73 - 1.22 mg/dL Final 06/19/2024 1.08 0.73 - 1.22 mg/dL Final 04/15/2024 1.15 0.73 - 1.22 mg/dL Final Estimated Glomerular Filtration Rate Date Value Ref Range Status 06/27/2024 73 >=60 mL/min/1.73m? Final Comment: Estimated Glomerular Filtration Rate (eGFR) is calculated using the 2020 CKD-EPI creatinine equation. This equation utilizes serum creatinine, sex, and age as parameters. The creatinine assay has traceable calibration to isotope dilution-mass spectrometry. Refer to KDIGO guidelines for clinical interpretation. In patients with unstable renal function, e.g. those with acute kidney injury, the eGFR may not accurately reflect actual GFR. P.O.C.T. RESULTS: POC done: Yes, See Lab Tab July 01, 2024 TREATMENT: N/A PERIPHERAL IV DATA: Ambulatory: A peripheral IV was started in the Right antecubital site with a Angio cath: 22 gauge. RADIOLOGY DEPARTMENT: CT; Exam(s) Completed: Enterography SIGNATURE: RT Yany(R) PATIENT NAME: José Miguel Carreno JR DATE: July 01, 2024 TIME: 9:01 AM [facility] 07-01-2024 Procedure note Radiology Service Progress Note DATE OF SERVICE: July 01, 2024 TIME: 9:01 AM PATIENT IDENTITY VERIFICATION COMPLETED USING TWO (2) STANDARD IDENTIFIERS: Name and Date of confirmed by patient verbally and Name and Date of confirmed by identification band. FALL SCREENING: Has the patient had 2 falls in the last year or 1 fall with injury or currently using an Ambulatory Assistive Device (Walker, Cane, Wheelchair, Crutches, etc.)? No PATIENT GENDER DATA: Assigned male at PATIENT RELEVANT IMPLANT DATA REVIEWED: Not Applicable PATIENT PRESENTS WITH AN IMPLANTABLE OR ATTACHED DOFFER: No ALLERGIES: Reviewed and unchanged CONTRAST ALLERGY: NO. EXAM: CT -CONTRAST INDUCED NEPHROPATHY RISK FACTORS: Patient age > 60 years CREATININE: Creatinine Date Value Ref Range Status 06/27/2024 1.13 0.73 - 1.22 mg/dL Final 06/19/2024 1.08 0.73 - 1.22 mg/dL Final 04/15/2024 1.15 0.73 - 1.22 mg/dL Final Estimated Glomerular Filtration Rate Date Value Ref Range Status 06/27/2024 73 >=60 mL/min/1.73m Final Comment: Estimated Glomerular Filtration Rate (eGFR) is calculated using the 2020 CKD-EPI creatinine equation. This equation utilizes serum creatinine, sex, and age as parameters. The creatinine assay has traceable calibration to isotope dilution-mass spectrometry. Refer to KDIGO guidelines for clinical interpretation. In patients with unstable renal function, e.g. those with acute kidney injury, the eGFR may not accurately reflect actual GFR. P.O.C.T. RESULTS: POC done: Yes, See Lab Tab July 01, 2024 TREATMENT: N/A PERIPHERAL IV DATA: Ambulatory: A peripheral IV was started in the Right antecubital site with a Angio cath: 22 gauge. RADIOLOGY DEPARTMENT: CT; Exam(s) Completed: Enterography SIGNATURE: RT Yany(R) PATIENT NAME: José Miguel Carreno JR DATE: July 01, 2024 TIME: 9:01 AM [facility] 07-01-2024 Procedure note Radiology Service Progress Note DATE OF SERVICE: July 01, 2024 TIME: 9:01 AM PATIENT IDENTITY VERIFICATION COMPLETED USING TWO (2) STANDARD IDENTIFIERS: Name and Date of confirmed by patient verbally and Name and Date of confirmed by identification band. FALL SCREENING: Has the patient had 2 falls in the last year or 1 fall with injury or currently using an Ambulatory Assistive Device (Walker, Cane, Wheelchair, Crutches, etc.)? No PATIENT GENDER DATA: Assigned male at PATIENT RELEVANT IMPLANT DATA REVIEWED: Not Applicable PATIENT PRESENTS WITH AN IMPLANTABLE OR ATTACHED DOFFER: No ALLERGIES: Reviewed and unchanged CONTRAST ALLERGY: NO. EXAM: CT -CONTRAST INDUCED NEPHROPATHY RISK FACTORS: Patient age > 60 years CREATININE: Creatinine Date Value Ref Range Status 06/27/2024 1.13 0.73 - 1.22 mg/dL Final 06/19/2024 1.08 0.73 - 1.22 mg/dL Final 04/15/2024 1.15 0.73 - 1.22 mg/dL Final Estimated Glomerular Filtration Rate Date Value Ref Range Status 06/27/2024 73 >=60 mL/min/1.73m Final Comment: Estimated Glomerular Filtration Rate (eGFR) is calculated using the 2020 CKD-EPI creatinine equation. This equation utilizes serum creatinine, sex, and age as parameters. The creatinine assay has traceable calibration to isotope dilution-mass spectrometry. Refer to KDIGO guidelines for clinical interpretation. In patients with unstable renal function, e.g. those with acute kidney injury, the eGFR may not accurately reflect actual GFR. P.O.C.T. RESULTS: POC done: Yes, See Lab Tab July 01, 2024 TREATMENT: N/A PERIPHERAL IV DATA: Ambulatory: A peripheral IV was started in the Right antecubital site with a Angio cath: 22 gauge. RADIOLOGY DEPARTMENT: CT; Exam(s) Completed: Enterography SIGNATURE: RT Yany(R) PATIENT NAME: José Miguel Carreno JR DATE: July 01, 2024 TIME: 9:01 AM documented in this encounter [facility] [place] 06-27-2024 History of Present illness Narrative Images from the original note were not included. [facility] Department of Cardiovascular Medicine SECTION OF PREVENTIVE CARDIOLOGY VIRTUAL VIDEO VISIT ESTABLISHED OUTPATIENT VISIT Date: 06/27/2024 Patient: José Miguel Carreno JR : 1960 This is a Telehealth Virtual Video visit. It required patient-provider interaction for the medical decision making as documented below. José Miguel Carreno JR has consented to this Virtual Visit. This is a virtual video visit. It required patient-provider interaction for the medical decision making as documented below. José Miguel Carreno JR has consented to this video encounter. I have communicated my name and active licensure. The patient's identity and physical location were verified at the time of this visit. Either the patient or their legal uniforms sales representative has been informed of the risks and benefits of -- and alternatives to -- treatment through a remote evaluation and consents to proceed with the evaluation remotely. CHIEF COMPLAINT: Consultation HISTORY OF PRESENT CARDIOVASCULAR ILLNESS: I had the pleasure of seeing José Miguel Carreno JR today as Telehealth Virtual Visit for a routine follow-up. The patient is seen today by consultation of Dr. Damir Witt. 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 He presents today for management of hyperlipidemia. He follows with Dr. Witt for history of cardiomyopathy and status post cardiac arrest during an episode of severe Crohn's disease exacerbation with hypokalemia. On routine laboratory testing, he recently had triglycerides of 385 mg/dL on 10/16/2023 in combination with an LDL cholesterol of 87 mg/dL. He had in the past been treated with rosuvastatin 20 mg. He is not sure whet this was stopped. He is currently treated with lisinopril 20 mg and metoprolol succinate 25 mg twice daily. Subjectively, he denies any exertional complaints. With respect to prior imaging study, he had a coronary calcium score of 103 and was found to have a mildly dilated aortic root of 4.0 cm. PAST MEDICAL HISTORY: PAST MEDICAL HISTORY Diagnosis Date Anemia Cardiac arrest (HCC) Congestive heart failure (HCC) Crohn disease (HCC) Crohn's disease (HCC) Dyslipidemia GERD (gastroesophageal reflux disease) GI bleed Hypertension Right ventricular dysplasia Syncope Thrombocytopenia (HCC) PAST SURGICAL HISTORY: PAST SURGICAL HISTORY Procedure Laterality Date BACK SURGERY HX L5 BOWEL RESECTION HX 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 SINUS SURGERY HX FAMILY HISTORY FAMILY HISTORY Problem Relation Age of Onset No Known Problems Mother Heart Attack Father Hypertension Father Coronary Artery Disease Father s/p CABG Hypertension Brother SOCIAL HISTORY Employer And Job Title: None on file Years Of Education Completed: Not specified Marital Status: Alcohol Use: Not Currently CURRENT MEDS: Current Outpatient Medications Medication Sig cyanocobalamin 1,000 mcg/mL INJECT 1ML (1000MCG) DIRECTED ONCE A MONTH potassium chloride 20 mEq TbER TAKE THREE TABLETS BY MOUTH EVERY DAY budesonide, enteric coated (ENTOCORT EC) 3 mg 24 hr capsule TAKE TWO CAPSULES BY MOUTH EVERY DAY predniSONE (DELTASONE) 1 mg tablet TAKE 4 TABLETS BY MOUTH EVERY AFTERNOON budesonide, enteric coated (ENTOCORT EC) 3 mg 24 hr capsule Take 3 capsules by mouth once daily rosuvastatin (CRESTOR) 20 mg tablet Take 1 tablet by mouth daily at bedtime. COPPER ORAL Take by mouth. risankizumab-rzaa (SKYRIZI) 360 mg/2.4 mL (150 mg/mL) wearable injector Inject 360 mg/2.4 mL subcutaneously once every 4 weeks metoprolol succinate ER (TOPROL XL) 25 mg 24 hr tablet Take 1 tablet by mouth two times a day. lisinopril (ZESTRIL) 20 mg tablet Take 10 mg by mouth once daily. predniSONE (DELTASONE) 5 mg tablet take 1 tablet by mouth once daily potassium chloride (K-TAB) 10 mEq tablet Take 1 tablet by mouth once daily. (Patient not taking: Reported on 01/04/2024) Cholecalciferol, Vitamin D3, 25 mcg (1,000 unit) cap Take by mouth q 24 HR. ferrous bis-glycinate chelate (IRON BISGLYCINATE CHELATE) 29 mg iron cap Take 1 capsule by mouth once daily. No current facility-administered medications for this visit. ALLERGIES: ALLERGIES Allergen Reactions Imuran [Azathioprin* Other: See Comments Joint stiffness Tylenol [Acetaminop* Other: See Comments Fever and clammy REVIEW OF SYSTEMS: CONSTITUTIONAL: No weight loss, malaise or fevers. HEENT: Negative for frequent or significant headaches, No changes in hearing or vision, no nose bleeds or other nasal problems. RESPIRATORY: Negative for cough, wheezing, or shortness of breath CARDIOVASCULAR: Negative for chest pain, leg swelling or palpitations GI: Negative for abdominal discomfort, blood in stools or black stools or change in bowel habits. : No history of dysuria, frequency, or incontinence and No difficulty urination, nocturia >1 times per night or hematuria. MUSCULOSKELETAL: Negative for joint pain or swelling, back pain or muscle pain. ENDOCRINE: Negative for cold or heat intolerance, polyuria, polydipsia and goiter HEMATOLOGIC/LYMPHATIC: Negative for prolonged bleeding, bruising easily or swollen nodes. NEUROLOGIC: No history or headaches, syncope, paralysis, seizures or tremors. INTEGUMENTARY: Negative for lesions, rash, and itching. CLINICAL TESTING RESULTS: I have personally reviewed the following LABS: Glucose (mg/dL) Date Value 06/19/2024 95 BUN (mg/dL) Date Value 06/19/2024 10 Creatinine (mg/dL) Date Value 06/19/2024 1.08 Sodium (mmol/L) Date Value 06/19/2024 140 Potassium (mmol/L) Date Value 06/19/2024 3.5 (L) Chloride (mmol/L) Date Value 06/19/2024 108 (H) CO2 (mmol/L) Date Value 06/19/2024 22 Protein, Total (g/dL) Date Value 06/19/2024 6.2 (L) Albumin (g/dL) Date Value 06/19/2024 3.9 Calcium, Total (mg/dL) Date Value 06/19/2024 9.4 Alkaline Phosphatase (U/L) Date Value 06/19/2024 92 Bilirubin, Total (mg/dL) Date Value 06/19/2024 0.3 AST (U/L) Date Value 06/19/2024 17 ALT (U/L) Date Value 06/19/2024 19 WBC (k/uL) Date Value 06/19/2024 11.17 (H) RBC (m/uL) Date Value 06/19/2024 4.77 Hemoglobin (g/dL) Date Value 06/19/2024 14.1 Hematocrit (%) Date Value 06/19/2024 41.5 MCV (fL) Date Value 06/19/2024 87.0 MCH (pg) Date Value 06/19/2024 29.6 MCHC (g/dL) Date Value 06/19/2024 34.0 RDW-CV (%) Date Value 06/19/2024 13.0 Platelet Count (k/uL) Date Value 06/19/2024 254 MPV (fL) Date Value 06/19/2024 9.2 INR (no units) Date Value 06/21/2022 1.1 Cholesterol, Total Date Value Ref Range Status 10/16/2023 205 (H) <200 mg/dL Final Comment: <200 mg/dL, Desirable 200-239 mg/dL, Borderline high >239 mg/dL, High HDL Cholesterol Date Value Ref Range Status 10/16/2023 41 >39 mg/dL Final Comment: 40-59 mg/dL, Acceptable >59 mg/dL, High: Negative risk factor for coronary heart disease <40 mg/dL, Low: Positive risk factor for coronary heart disease LDL Cholesterol Date Value Ref Range Status 10/16/2023 87 <100 mg/dL Final Comment: <100 mg/dL, Optimal 100-129 mg/dL, Near optimal/above optimal 130-159 mg/dL, Borderline high 160-189 mg/dL, High >189 mg/dL, Very high Secondary prevention optimal LDL Cholesterol levels are recommended to be < 70 mg/dL Triglyceride Date Value Ref Range Status 10/16/2023 385 (H) <150 mg/dL Final Comment: <150 mg/dL, Normal 150-199 mg/dL, Borderline high 200-499 mg/dL, High >499 mg/dL, Very high TSH Date Value Ref Range Status 11/28/2022 2.250 0.270 - 4.200 mIU/L Final No results found for: HBA1C The 10-year ASCVD risk score (Aure CHRISTINE, et al., 2019) is: 15.1% Values used to calculate the score: Age: 64 years Sex: Male Is Non- : No Diabetic: No Tobacco smoker: No Systolic Blood Pressure: 136 mmHg Is BP treated: Yes HDL Cholesterol: 41 mg/dL Total Cholesterol: 205 mg/dL ECG 06/27/2024: Last EKG Result Conclusion ECG COMPLETE Collected: 07/25/2023 8:09 AM (Final result) Impression: NORMAL SINUS RHYTHM NORMAL ECG Confirmed by GRAYSON GAMEZ M.D. ([id number]) on 07/27/2023 1:30:44 PM Last ECHO Result Conclusion ECHO Collected: 07/25/2023 8:55 AM (Final result) Impression: CONCLUSIONS: - Exam indication: Cardiomyopathy - The left ventricle is normal in size. Left ventricular systolic function is normal. EF = 55 5% (2D biplane) Normal left ventricular diastolic function. - The right ventricle is mildly dilated. Right ventricular systolic function is normal. - The visualized aorta is dilated with a maximal dimension of 4.1 cm. - Trivial MR. - Trivial to 1+ TR. - Estimated right ventricular systolic pressure is likely underestimated due to a weak or incomplete tricuspid regurgitation signal and is, at least, 30 mmHg consistent with normal pulmonary artery pressures. Estimated right atrial pressure is 8 mmHg based on IVC assessment. - The patient has not had a prior CC echocardiographic exam for comparison. * * * Final * * * Coronary artery calcium scan 01/04/2024: Examination: CT Coronary Calcium Score Direct Image Comparison: None HISTORY: 63 years old Male with concern for coronary artery disease. There is request to assess and quantify coronary calcification TECHNIQUE: SCANNER: Multi-detector scanner PROTOCOL: Sequential imaging with prospective triggering and 3-mm slice reconstruction was performed without contrast administration. Scan Range: odalis to the base of the heart Tube Voltage: [address] Dose-Length Product (DLP): 96.[address] Dose Reduction Employed: Automated exposure control(AEC) and iterative recon CONTRAST: None Scan acquisition was uncomplicated Macro Version: [id number] For optimization of anatomic evaluation, off-line postprocessing was performed on a dedicated workstation by the interpreting physician. STUDY LIMITATIONS: None. RESULT: LINES, TUBES and DEVICES: None ICD device over the left anterior chest wall, with transvenous leads extending to the RV visualized CHEST: Chest wall anatomy: unremarkable. visualized LUNGS: unremarkable. visualized MEDIASTINUM: unremarkable. PERICARDIUM: unremarkable CENTRAL PULMONARY ARTERY: normal dimensions. Assessment is limited due to lack of contrast enhancement. CARDIAC CHAMBERS: assessment is limited in the non-contrast study. -overall normal dimensions AORTIC VALVE: assessment is limited in the current study. No leaflet calcification. visualized AORTA: Aortic Size: Ectasia/Mild Dilation aortic root and ascending aorta. Wall Changes: no wall calcification. AORTIC DIMENSIONS: AORTIC ROOT: 4.2 cm measured [id number] mid ASCENDING THORACIC AORTA: 3.8 cm mid DESCENDING THORACIC AORTA: 2.8 cm CORONARY ANATOMY: normal origin of the coronary arteries. Calcium Score (Agatston Units): LM: 0 AU LAD: 103 AU LCx: 0 AU RCA: 0 AU Other: 0 AU Total: 103 AU Percentile Rank (age and gender matched relative to reference population): 66 percentile* [* [email or web address]-[email or web address] [email or web address]] limited upper ABDOMEN: unremarkable BONES and SOFT TISSUES: unremarkable, within limitations of the current study Drum Drier Operator (topogram) images: No additional findings. PATIENT ENTERED QUESTIONNAIRE SCORES 07/18/2023 PHQ-9 PHQ-2 Score 0 PHQ-9 Score 2 04/25/2024 10/22/2023 07/06/2023 PROMIS Global Health - (T-Scores - the mean of general population = 50. Five points is a clinically meaningful difference.) Physical T-Score 50.8 50.8 50.8 Mental T-Score 53.3 50.8 48.3 PATIENT ENTERED QUESTIONNAIRE SCORES 07/18/2023 PHQ-9 PHQ-2 Score 0 PHQ-9 Score 2 04/25/2024 10/22/2023 07/06/2023 PROMIS Global Health - (T-Scores - the mean of general population = 50. Five points is a clinically meaningful difference.) Physical T-Score 50.8 50.8 50.8 Mental T-Score 53.3 50.8 48.3 ASSESSMENT AND PLAN: In addition to the above history and physical exam, the results of prior labs and testing, were reviewed. The following plans and goals have been established to address current medical problems and optimize control of cardiovascular risk factors to reduce the risk of future heart disease: 1. Coronary artery calcification: He had a coronary calcium scan of 103 AU. In light of his history of recent gastrointestinal bleed, I will continue to hold aspirin. We reviewed the increased risk associated with coronary calcification and a clear indication for cholesterol-lowering therapy. 2. Combined hyperlipidemia: I have discussed that I agree with Dr. Taylor and recommend to start rosuvastatin 20 mg which was already prescribed in December. He will give this some thought, but does at this time not want to start statin therapy. His LDL cholesterol goal is less than 70 mg/dL. 3. Mild aortic root dilation: I have recommended a follow-yo echocardiogram in 3 months. FOLLOW UP: I have discussed with José Miguel Carreno JR that I recommend a follow-up visit with Deb Cronin CNP in 3 months.. An appointment has been scheduled accordingly. Kiko Dumont MD, PhD electrical hardware engineer, [facility], [facility], Section of Preventive Cardiology Heart, Vascular, and Thor[facility], Department of Cardiovascular Medicine [place] [address] Office Appointments: [phone] Recording using Fanear software for draft documentation of the visit was discussed with the patient/authorized uniforms sales representative; all questions welcomed and answered. Patient/authorized uniforms sales representative agreed to proceed Voice recognition software was used in the creation of this document. There may be unintended errors in spelling, grammar, syntax or punctuation present. documented in this encounter [facility] [place] 06-27-2024 Note HNO ID: [id number] Author: KIKO DUMONT MD Service: ? Author Type: Physician Type: Progress Notes Filed: 06/27/2024 08:07 Note Text: [facility] Department of Cardiovascular Medicine SECTION OF PREVENTIVE CARDIOLOGY VIRTUAL VIDEO VISIT ESTABLISHED OUTPATIENT VISIT Date: 06/27/2024 Patient: José Miguel Carreno JR : 1960 This is a Telehealth Virtual Video visit. It required patient-provider interaction for the medical decision making as documented below. José Miguel Carreno JR has consented to this Virtual Visit. This is a virtual video visit. It required patient-provider interaction for the medical decision making as documented below. José Miguel Carreno JR has consented to this video encounter. I have communicated my name and active licensure. The patient's identity and physical location were verified at the time of this visit. Either the patient or their legal uniforms sales representative has been informed of the risks and benefits of -- and alternatives to -- treatment through a remote evaluation and consents to proceed with the evaluation remotely. CHIEF COMPLAINT: Consultation HISTORY OF PRESENT CARDIOVASCULAR ILLNESS: I had the pleasure of seeing José Miguel Carreno JR today as Telehealth Virtual Visit for a routine follow-up. The patient is seen today by consultation of Dr. Damir Witt. 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 He presents today for management of hyperlipidemia. He follows with Dr. Witt for history of cardiomyopathy and status post cardiac arrest during an episode of severe Crohn's disease exacerbation with hypokalemia. On routine laboratory testing, he recently had triglycerides of 385 mg/dL on 10/16/2023 in combination with an LDL cholesterol of 87 mg/dL. He had in the past been treated with rosuvastatin 20 mg. He is not sure whet this was stopped. He is currently treated with lisinopril 20 mg and metoprolol succinate 25 mg twice daily. Subjectively, he denies any exertional complaints. With respect to prior imaging study, he had a coronary calcium score of 103 and was found to have a mildly dilated aortic root of 4.0 cm. PAST MEDICAL HISTORY: PAST MEDICAL HISTORY Diagnosis Date Anemia Cardiac arrest (HCC) Congestive heart failure (HCC) Crohn disease (HCC) Crohn's disease (HCC) Dyslipidemia GERD (gastroesophageal reflux disease) GI bleed Hypertension Right ventricular dysplasia Syncope Thrombocytopenia (HCC) PAST SURGICAL HISTORY: PAST SURGICAL HISTORY Procedure Laterality Date BACK SURGERY HX L5 BOWEL RESECTION HX 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 SINUS SURGERY HX FAMILY HISTORY FAMILY HISTORY Problem Relation Age of Onset No Known Problems Mother Heart Attack Father Hypertension Father Coronary Artery Disease Father s/p CABG Hypertension Brother SOCIAL HISTORY Employer And Job Title: None on file Years Of Education Completed: Not specified Marital Status: Alcohol Use: Not Currently CURRENT MEDS: Current Outpatient Medications Medication Sig cyanocobalamin 1,000 mcg/mL INJECT 1ML (1000MCG) DIRECTED ONCE A MONTH potassium chloride 20 mEq TbER TAKE THREE TABLETS BY MOUTH EVERY DAY budesonide, enteric coated (ENTOCORT EC) 3 mg 24 hr capsule TAKE TWO CAPSULES BY MOUTH EVERY DAY predniSONE (DELTASONE) 1 mg tablet TAKE 4 TABLETS BY MOUTH EVERY AFTERNOON budesonide, enteric coated (ENTOCORT EC) 3 mg 24 hr capsule Take 3 capsules by mouth once daily rosuvastatin (CRESTOR) 20 mg tablet Take 1 tablet by mouth daily at bedtime. COPPER ORAL Take by mouth. risankizumab-rzaa (SKYRIZI) 360 mg/2.4 mL (150 mg/mL) wearable injector Inject 360 mg/2.4 mL subcutaneously once every 4 weeks metoprolol succinate ER (TOPROL XL) 25 mg 24 hr tablet Take 1 tablet by mouth two times a day. lisinopril (ZESTRIL) 20 mg tablet Take 10 mg by mouth once daily. predniSONE (DELTASONE) 5 mg tablet take 1 tablet by mouth once daily potassium chloride (K-TAB) 10 mEq tablet Take 1 tablet by mouth once daily. (Patient not taking: Reported on 01/04/2024) Cholecalciferol, Vitamin D3, 25 mcg (1,000 unit) cap Take by mouth q 24 HR. ferrous bis-glycinate chelate (IRON BISGLYCINATE CHELATE) 29 mg iron cap Take 1 capsule by mouth once daily. No current facility-administered medications for this visit. ALLERGIES: ALLERGIES Allergen Reactions Imuran [Azathioprin* Other: See Comments Joint stiffness Tylenol [Acetaminop* Other: See Comments Fever and clammy REVIEW OF SYSTEMS: CONSTITUTIONAL: No weight loss, malaise or fevers. HEENT: Negative for frequen (more content not included)... [facility] 06-19-2024 Telephone encounter Note Images from the original note were not included. Jay Paul MD, PhD to Me 06/19/24 10:59 AM Javy Mart, His potassium is a bit low. Can you check with him what dose of potassium he is on? Per the chart, it is 60 mEq. If he is on that dose, can increase to 80 mEq, but he would need follow up potassium blood level after 1 week. Can you also help with scheduling a follow up virtual with me in early July (after his CTE)? Thanks, MB Called spoke with patient inquired regarding the above, was advised yes he is on 60 mEq, patient stated he will increase to 80 mEq X 1 week has enough medication and re test as advised assisted with scheduling a virtual visit 07/25/24 2:30 pm. Potassium lab order pended Kate Traylor LPN [facility] [place] 06-19-2024 Miscellaneous Notes Images from the original note were not included. Jay Paul MD, PhD to Me 06/19/24 10:59 AM Javy Mart, His potassium is a bit low. Can you check with him what dose of potassium he is on? Per the chart, it is 60 mEq. If he is on that dose, can increase to 80 mEq, but he would need follow up potassium blood level after 1 week. Can you also help with scheduling a follow up virtual with me in early July (after his CTE)? Thanks, MB Called spoke with patient inquired regarding the above, was advised yes he is on 60 mEq, patient stated he will increase to 80 mEq X 1 week has enough medication and re test as advised assisted with scheduling a virtual visit 07/25/24 2:30 pm. Potassium lab order pended Kate Traylor LPN documented in this encounter [facility] [place] 05-30-2024 Telephone encounter Note Received request from [employer] for new appeal letter to be faxed in for patient to remain eligible for Bridge. Appeal letter composed and approved. Appeal letter faxed successfully to [facility] pharmacy appeals department [phone]. Appeal and original denial letter faxed successfully to [employer] and . Kate Traylor LPN [facility] [place] 05-30-2024 Miscellaneous Notes Received request from [employer] for new appeal letter to be faxed in for patient to remain eligible for [employer]. Appeal letter composed and approved. Appeal letter faxed successfully to [facility] [employer] appeals department [phone]. Appeal and original denial letter faxed successfully to [employer] complete and . Kate Traylor LPN documented in this encounter [facility] [place] 05-14-2024 History of Present illness Narrative Images from the original note were not included. Lesions: Location: face and chest Duration: years Quality: denies pain, denies itch, denies bleeding Modifying factors: rubs on clothing Associated symptoms: enlarged, rough, scaly Treatments: none Patient declined any other area to be looked at today. Established patient Follow up Diagnosis: sebaceous hyperplasia Location: face Last visit: 1 month ago Symptoms: none Status: improved, wanting more treated today Procedure performed: electrodesiccation Date of procedure: 02/01/24, 02/28/2024, 04/11/2024 Number of treatments to date: 4 All pertinent medical history, medications, and allergies were reviewed. General Exam: alert, oriented to person, place, and time, normal affect, well appearing Unaccompanied A focused exam completed based on patient reported problems, see below: 1. Neoplasm of unspecified behavior of bone, soft tissue, and skin Chest - Medial (Center) Irregularly pigmented papule Lesion biopsy Type of biopsy: tangential Informed consent: discussed and consent obtained Informed consent comment: The risks and benefits of the biopsy were discussed. Risks include but are not limited to bleeding, infection, scarring, pain, and nerve damage. An opportunity to ask questions prior to the procedure was permitted and all questions were answered. Patient was prepped and draped in usual sterile fashion: area cleansed with alcohol. Anesthesia: the lesion was anesthetized in a standard fashion Anesthetic: 1% lidocaine w/ epinephrine 1-100,000 buffered w/ 8.4% NaHCO3 Instrument used: DermaBlade Hemostasis achieved with: electrodesiccation Outcome: patient tolerated procedure well Outcome comment: The specimen was placed in a prelabeled formalin container to be sent for pathology Post-procedure details: sterile dressing applied and wound care instructions given Post-procedure details comment: Emphasized need to contact clinic for any signs of infection, uncontrollable bleeding, or complications. Dressing type: bandage Additional details: Photo taken Amount of lidocaine used: 1.0 cc Specimen A - Dermatopathology exam Differential Diagnosis: sk vs mm Check Margins: No Size of lesion: 0.5 x 0.5 cm Shave biopsy today, see procedure note. Patient will be notified of results. Follow up pending biopsy results. 2. Inflamed seborrheic keratosis (14) Left Breast (3), Left Flank (2), Mid Back (2), Right Breast (3), Right Lower Back, Right Upper Back (3) Inflamed seborrheic keratoses: pink and brown stuck on verrucous scaly papule with surrounding erythema and bloody crust. The patient was informed that symptomatic seborrheic keratoses are benign growths that become inflamed, itchy, tender, traumatized, caught on clothing, or bleed. Symptomatic lesions can be treated with cryotherapy or curretage. Thicker lesions treated with cryotherapy may require more than one treatment. The patient was instructed to notify the office if abnormal redness or tenderness develops at the treatment site. Cryotherapy today, see procedure note. Diagnosis: Inflamed seborrheic keratosis Indication: Inflamed Consent: Verbal consent was obtained and risks were discussed, including, but not limited to risks of scarring, darker or calliope player pigmentary changes, recurrence, incomplete removal and infection. [...] or tenderness Cryotherapy, skin lesion - Left Breast (3), Left Flank (2), Mid Back (2), Right Breast (3), Right Lower Back, Right Upper Back (3) 3. Surgery, elective (3) Left Malar Cheek, Left Parotid Area, Right Malar Cheek Small yellow papules with a central dell. Reassure, benign. Cleansed with alcohol, removed with the hyfrecator, tolerated well. No charge per NF. Next Visit: pending biopsy results documented in this encounter [facility] 05-13-2024 Telephone encounter Note Call placed to [employer] [phone], spoke with pharmacist Marcy Siddiqi provided a verbal prescription for one Skyrizi 360 mg/2.4 mL OBI. Per the pharmacist the approval is not yet showing in the system yet but she has documented the verbal prescription. Kate Traylor LPN [facility] [place] 05-13-2024 Miscellaneous Notes Call placed to [employer] [phone], spoke with pharmacist Marcy Siddiqi provided a verbal prescription for one Skyrizi 360 mg/2.4 mL OBI. Per the pharmacist the approval is not yet showing in the system yet but she has documented the verbal prescription. Kate Traylor LPN documented in this encounter [facility] [place] 05-02-2024 Note HNO ID: [id number] Author: JAY PAUL MD, PhD Service: ? Author Type: Physician Type: Progress Notes Filed: 05/02/2024 16:58 Note Text: VIRTUAL VISIT FOLLOW UP José Miguel Carreno JR [id number] 1960 has requested a video telemedicine follow-up visit. José Miguel Carreno JR verbalized informed consent to proceed with the video telemedicine follow-up visit. José Miguel Carreno JR was informed that the details of this video visit would be recorded as part of their electronic medical record. I have communicated my name and active licensure. The patient's identity and physical location were verified at the time of this visit. Either the patient or their legal uniforms sales representative has been informed of the risks and benefits of -- and alternatives to -- treatment through a remote evaluation and consents to proceed with the evaluation remotely. Patient location at time of call: home Additional encounter participants and relationship: none No chief complaint on file. I had a virtual visit with Mr. Carreno today for follow up of Crohn's disease. UPDATED HISTORY: - Patient was able to discontinue prednisone in February. - Currently, on Skyrizi every 4 weeks and budesonide 9 mg. - Intermittent abdominal pain, unchanged. Endorses mild diarrhea, intermittent, unchanged from prior. Current Clinical Symptoms # of bowel movements daily: 1-2 # of liquid stools daily: 0 Consistency: loose, soft Bloody bowel movements: no Urgency: no Abdominal pain: yes Abdominal distention: no Nausea/vomiting: no Weight loss over last 3 months: no General well-being: slightly below average 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 SINUS SURGERY HX FAMILY HISTORY Problem Relation Age of Onset No Known Problems Mother Heart Attack Father Hypertension Father Coronary Artery Disease Father s/p CABG Hypertension Brother Social History Tobacco Use Smoking status: Never Passive exposure: Never Smokeless tobacco: Never Vaping Use Vaping status: Never Used Substance Use Topics Alcohol use: Not Currently Drug use: Never Current Outpatient Medications Medication Sig Dispense Refill cyanocobalamin 1,000 mcg/mL INJECT 1ML (1000MCG) DIRECTED ONCE A MONTH 3 mL 1 potassium chloride 20 mEq TbER TAKE THREE TABLETS BY MOUTH EVERY DAY 270 tablet 1 budesonide, enteric coated (ENTOCORT EC) 3 mg 24 hr capsule TAKE TWO CAPSULES BY MOUTH EVERY DAY 180 capsule 1 predniSONE (DELTASONE) 1 mg tablet TAKE 4 TABLETS BY MOUTH EVERY AFTERNOON 480 tablet 1 budesonide, enteric coated (ENTOCORT EC) 3 mg 24 hr capsule Take 3 capsules by mouth once daily 270 capsule 1 rosuvastatin (CRESTOR) 20 mg tablet Take 1 tablet by mouth daily at bedtime. 90 tablet 3 COPPER ORAL Take by mouth. risankizumab-rzaa (SKYRIZI) 360 mg/2.4 mL (150 mg/mL) wearable injector Inject 360 mg/2.4 mL subcutaneously once every 4 weeks 2.4 mL 11 metoprolol succinate ER (TOPROL XL) 25 mg 24 hr tablet Take 1 tablet by mouth two times a day. 180 tablet 3 lisinopril (ZESTRIL) 20 mg tablet Take 10 mg by mouth once daily. predniSONE (DELTASONE) 5 mg tablet take 1 tablet by mouth once daily 30 tablet 2 potassium chloride (K-TAB) 10 mEq tablet Take 1 tablet by mouth once daily. (Patient not taking: Reported on 01/04/2024) 7 tablet 0 Cholecalciferol, Vitamin D3, 25 mcg (1,000 unit) cap Take by mouth q 24 HR. ferrous bis-glycinate chelate (IRON BISGLYCINATE CHELATE) 29 mg iron cap Take 1 capsule by mouth once daily. 1 capsule 5 No current facility-administered medications for this visit. ALLERGIES Allergen Reactions Imuran [Azathioprin* Other: See Comments Joint stiffness Tylenol [Acetaminop* Other: See Comments Fever and clammy PHYSICAL FINDINGS OF NOTE: General: alert and appropriate, in no distress and well-hydrated, well nourished , Psych: Appropriate mood and interaction Skin: no rash noted, Oropharynx: moist mucus membranes, no tonsillar hypertrophy/exudate, uvula midline and pharynx non-erythematous, lips, teeth and gums are without obvious lesion, Neck: full ROM, no cervical LNs noted, Respiratory: breathing non-labored, and no grunting/flaring/retractions, Chest: equal chest rise with normal respiratory effort, Neuro: Patient seen sitting with normal appearing strength and coordination REVIEWED ITEMS CBC: WBC (k/uL) Date Value 04/15/2024 13.33 (H) Hematocrit (%) Date Value 04/15/2024 39.2 MCV (fL) Date Value 04/15/2024 85.8 Platelet Count (k/uL) Date Value 04/15/2024 258 Lymphocytes % (%) Date Value 04/15/2024 18. (more content not included)... [facility] 05-02-2024 History of Present illness Narrative VIRTUAL VISIT FOLLOW UP José Miguel Carreno JR [id number] 1960 has requested a video telemedicine follow-up visit. José Miguel Carreno JR verbalized informed consent to proceed with the video telemedicine follow-up visit. José Miguel Carreno JR was informed that the details of this video visit would be recorded as part of their electronic medical record. I have communicated my name and active licensure. The patient's identity and physical location were verified at the time of this visit. Either the patient or their legal uniforms sales representative has been informed of the risks and benefits of -- and alternatives to -- treatment through a remote evaluation and consents to proceed with the evaluation remotely. Patient location at time of call: home Additional encounter participants and relationship: none No chief complaint on file. I had a virtual visit with Mr. Carreno today for follow up of Crohn's disease. UPDATED HISTORY: - Patient was able to discontinue prednisone in February. - Currently, on Skyrizi every 4 weeks and budesonide 9 mg. - Intermittent abdominal pain, unchanged. Endorses mild diarrhea, intermittent, unchanged from prior. Current Clinical Symptoms # of bowel movements daily: 1-2 # of liquid stools daily: 0 Consistency: loose, soft Bloody bowel movements: no Urgency: no Abdominal pain: yes Abdominal distention: no Nausea/vomiting: no Weight loss over last 3 months: no General well-being: slightly below average 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 SINUS SURGERY HX FAMILY HISTORY Problem Relation Age of Onset No Known Problems Mother Heart Attack Father Hypertension Father Coronary Artery Disease Father s/p CABG Hypertension Brother Social History Tobacco Use Smoking status: Never Passive exposure: Never Smokeless tobacco: Never Vaping Use Vaping status: Never Used Substance Use Topics Alcohol use: Not Currently Drug use: Never Current Outpatient Medications Medication Sig Dispense Refill cyanocobalamin 1,000 mcg/mL INJECT 1ML (1000MCG) DIRECTED ONCE A MONTH 3 mL 1 potassium chloride 20 mEq TbER TAKE THREE TABLETS BY MOUTH EVERY DAY 270 tablet 1 budesonide, enteric coated (ENTOCORT EC) 3 mg 24 hr capsule TAKE TWO CAPSULES BY MOUTH EVERY DAY 180 capsule 1 predniSONE (DELTASONE) 1 mg tablet TAKE 4 TABLETS BY MOUTH EVERY AFTERNOON 480 tablet 1 budesonide, enteric coated (ENTOCORT EC) 3 mg 24 hr capsule Take 3 capsules by mouth once daily 270 capsule 1 rosuvastatin (CRESTOR) 20 mg tablet Take 1 tablet by mouth daily at bedtime. 90 tablet 3 COPPER ORAL Take by mouth. risankizumab-rzaa (SKYRIZI) 360 mg/2.4 mL (150 mg/mL) wearable injector Inject 360 mg/2.4 mL subcutaneously once every 4 weeks 2.4 mL 11 metoprolol succinate ER (TOPROL XL) 25 mg 24 hr tablet Take 1 tablet by mouth two times a day. 180 tablet 3 lisinopril (ZESTRIL) 20 mg tablet Take 10 mg by mouth once daily. predniSONE (DELTASONE) 5 mg tablet take 1 tablet by mouth once daily 30 tablet 2 potassium chloride (K-TAB) 10 mEq tablet Take 1 tablet by mouth once daily. (Patient not taking: Reported on 01/04/2024) 7 tablet 0 Cholecalciferol, Vitamin D3, 25 mcg (1,000 unit) cap Take by mouth q 24 HR. ferrous bis-glycinate chelate (IRON BISGLYCINATE CHELATE) 29 mg iron cap Take 1 capsule by mouth once daily. 1 capsule 5 No current facility-administered medications for this visit. ALLERGIES Allergen Reactions Imuran [Azathioprin* Other: See Comments Joint stiffness Tylenol [Acetaminop* Other: See Comments Fever and clammy PHYSICAL FINDINGS OF NOTE: General: alert and appropriate, in no distress and well-hydrated, well nourished , Psych: Appropriate mood and interaction Skin: no rash noted, Oropharynx: moist mucus membranes, no tonsillar hypertrophy/exudate, uvula midline and pharynx non-erythematous, lips, teeth and gums are without obvious lesion, Neck: full ROM, no cervical LNs noted, Respiratory: breathing non-labored, and no grunting/flaring/retractions, Chest: equal chest rise with normal respiratory effort, Neuro: Patient seen sitting with normal appearing strength and coordination REVIEWED ITEMS CBC: WBC (k/uL) Date Value 04/15/2024 13.33 (H) Hematocrit (%) Date Value 04/15/2024 39.2 MCV (fL) Date Value 04/15/2024 85.8 Platelet Count (k/uL) Date Value 04/15/2024 258 Lymphocytes % (%) Date Value 04/15/2024 18.1 Hepatic Function Panel: Albumin (g/dL) Date Value 04/15/2024 3.9 Bilirubin, Total (mg/dL) Date Value 04/15/2024 0.3 Bilirubin, Direct (mg/dL) Date Value 06/22/2022 0.6 (H) Alkaline Phosphatase (U/L) Date Value 04/15/2024 88 AST (U/L) Date Value 04/15/2024 18 ALT (U/L) Date Value 04/15/2024 23 Protein, Total (g/dL) Date Value 04/15/2024 6.1 (L) Assessment IMPRESSION José Miguel Carreno is a 63 year old male with PMH of Crohn's disease, diagnosed in s/p ileocolonic resection, previously on infliximab, adalimumab, certolizumab, ustekinumab, vedolizumab, off label upadacitinib in 2020, currently, steroid-dependent and on rizankizumab since September 2021, currently q4, history of SMA pseudoaneurysm with massive GI bleeding, s/p coiling and embolization in 2022, coming in today for follow up. 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 Has been able to completely wean off prednisone (first time in over 5 years). Is currently on Skyrizi every 4 weeks and budesonide 9 mg. Is currently at baseline from a symptom standpoint. Most recent CTE from December 2023 showed 20 cm ileitis with associated stricture, improved compared to prior. Regarding next steps in management, we recommend a CTE in 2-3 months to assess for ongoing inflammation. If radiographic worsening is reported, we will recommend initiation of Entyvio q 8 weeks. PLAN - CTE in 2-3 months - Return visit after the above. I spent minutes in the virtual visit, with more than 50% of the total [id number] time of the visit in counseling / coordination of care. I have confirmed and edited as necessary, the PFSH and ROS obtained by others. I will communicate my recommendations and prescriptions to the patient's primary care provider. Unrelated to E/M, telemedicine, or virtual visit service provided within previous 7 days. No E/M service or procedure anticipated within next 24 hours. Jay Anand MD, PhD May 02, 2024 4:02 PM documented in this encounter [facility] [place] 04-30-2024 Telephone encounter Note Requested Prescriptions Pending Prescriptions Disp Refills cyanocobalamin 1,000 mcg/mL [Pharmacy Med Name: CYANOCOBALAMIN 1000MCG/ML SOLN] 3 mL 1 Sig: INJECT 1ML (1000MCG) DIRECTED ONCE A MONTH Last visit: 01/04/24 PLAN - Continue Skyrizi q4 weeks. - Decrease prednisone by 0.5 mg every 2 weeks. Continue Budesonide 9 mg. - Referral to IBD pharmacist to initiate Entyvio. Patient prefers SQ route. - Follow up in 2 months with labs. Next visit: 05/02/24 Last Labs: 04/15/24 Kate Traylor LPN [facility] [place] 04-30-2024 Miscellaneous Notes Requested Prescriptions Pending Prescriptions Disp Refills cyanocobalamin 1,000 mcg/mL [Pharmacy Med Name: CYANOCOBALAMIN 1000MCG/ML SOLN] 3 mL 1 Sig: INJECT 1ML (1000MCG) DIRECTED ONCE A MONTH Last visit: 01/04/24 PLAN - Continue Skyrizi q4 weeks. - Decrease prednisone by 0.5 mg every 2 weeks. Continue Budesonide 9 mg. - Referral to IBD pharmacist to initiate Entyvio. Patient prefers SQ route. - Follow up in 2 months with labs. Next visit: 05/02/24 Last Labs: 04/15/24 Kate Traylor LPN documented in this encounter [facility] [place] 04-11-2024 History of Present illness Narrative Images from the original note were not included. Follow up Diagnosis: SK Location: generalized Last visit: 1 month ago Symptoms: Itchy Status: getting smaller Procedure performed: Cryotherapy Date of procedure: 02/01/2024, 03/09/2024 Number of treatments to date: 3 Follow up Diagnosis: sebaceous hyperplasia Location: face Last visit: 1 month ago Symptoms: none Status: improved, wanting more treated today Procedure performed: electrodesiccation Date of procedure: 02/01/24, 02/28/2024 Number of treatments to date: 3 All pertinent medical history, medications, and allergies were reviewed. General Exam: alert, oriented to person, place, and time, normal affect, well appearing Unaccompanied A focused exam completed based on patient reported problems, see below: 1. Sebaceous hyperplasia Head - Anterior (Face) Small yellow papules with a central dell. Reassure, benign. Discussed these can be removed for a cosmetic fee with the hyfrecator if desired. NO CHARGE PER PROVIDER Electrodesiccation Diagnosis: Sebaceous Hyperplasia Location: Face Consent: The risks of the procedure were discussed with the patient, including, but not limited to risks of scarring, incomplete removal and recurrence. Verbal consent was obtained from the patient. Method: The lesion was removed by electrodesiccation at a low power setting Post-procedure: Petroleum ointment was applied to the treated area. Post-procedure instructions were reviewed with the patient. NO CHARGE PER NF 2. Inflamed seborrheic keratosis (14) Left Lower Back, Left Occipital Scalp, Left Posterior Neck, Left Upper Back, Mid Back, Mid Occipital Scalp (3), Right Lower Back, Right Posterior Neck (2), Right Temporal Scalp (2), Right Upper Back Inflamed seborrheic keratoses: pink and brown stuck on verrucous scaly papule with surrounding erythema and bloody crust. The patient was informed that symptomatic seborrheic keratoses are benign growths that become inflamed, itchy, tender, traumatized, caught on clothing, or bleed. Symptomatic lesions can be treated with cryotherapy or curretage. Thicker lesions treated with cryotherapy may require more than one treatment. The patient was instructed to notify the office if abnormal redness or tenderness develops at the treatment site. Cryotherapy today, see procedure note. Diagnosis: Inflamed seborrheic keratosis Indication: Inflamed Consent: Verbal consent was obtained and risks were discussed, including, but not limited to risks of scarring, darker or calliope player pigmentary changes, recurrence, incomplete removal and infection. [...] or tenderness Cryotherapy, skin lesion - Left Lower Back, Left Occipital Scalp, Left Posterior Neck, Left Upper Back, Mid Back, Mid Occipital Scalp (3), Right Lower Back, Right Posterior Neck (2), Right Temporal Scalp (2), Right Upper Back 3. Neoplasm of unspecified behavior of bone, soft tissue, and skin (2) Left Shoulder - Posterior Irregularly pigmented macule Lesion biopsy Type of biopsy: tangential Informed consent: discussed and consent obtained Informed consent comment: The risks and benefits of the biopsy were discussed. Risks include but are not limited to bleeding, infection, scarring, pain, and nerve damage. An opportunity to ask questions prior to the procedure was permitted and all questions were answered. Patient was prepped and draped in usual sterile fashion: area cleansed with alcohol. Anesthesia: the lesion was anesthetized in a standard fashion Anesthetic: 1% lidocaine w/ epinephrine 1-100,000 buffered w/ 8.4% NaHCO3 Instrument used: DermaBlade Hemostasis achieved with: electrodesiccation Outcome: patient tolerated procedure well Outcome comment: The specimen was placed in a prelabeled formalin container to be sent for pathology Post-procedure details: sterile dressing applied and wound care instructions given Post-procedure details comment: Emphasized need to contact clinic for any signs of infection, uncontrollable bleeding, or complications. Dressing type: bandage Additional details: Photo taken yes Amount of lidocaine used: 1.0 cc Specimen A - Dermatopathology exam Differential Diagnosis: Lentigo vs MM Check Margins: No Size of lesion: 0.6 c 0.5 cm Right Lower Back Irregularly pigmented papule Lesion biopsy Type of biopsy: tangential Informed consent: discussed and consent obtained Informed consent comment: The risks and benefits of the biopsy were discussed. Risks include but are not limited to bleeding, infection, scarring, pain, and nerve damage. An opportunity to ask questions prior to the procedure was permitted and all questions were answered. Patient was prepped and draped in usual sterile fashion: area cleansed with alcohol. Anesthesia: the lesion was anesthetized in a standard fashion Anesthetic: 1% lidocaine w/ epinephrine 1-100,000 buffered w/ 8.4% NaHCO3 Instrument used: DermaBlade Hemostasis achieved with: electrodesiccation Outcome: patient tolerated procedure well Outcome comment: The specimen was placed in a prelabeled formalin container to be sent for pathology Post-procedure details: sterile dressing applied and wound care instructions given Post-procedure details comment: Emphasized need to contact clinic for any signs of infection, uncontrollable bleeding, or complications. Dressing type: bandage Additional details: Photo taken yes Amount of lidocaine used: 1.0 cc Specimen B - Dermatopathology exam Differential Diagnosis: ISK vs Spitz nevus Check Margins: No Size of lesion: 0.5 x 0.4 cm Next Visit: 3 months documented in this encounter [facility] 12-18-2024 History of Present illness Narrative Follow up Diagnosis: SK Location: generalized Last visit: 1 month ago Symptoms: Itchy Status: getting smaller Procedure performed: Cryotherapy Date of procedure: 02/01/2024 Number of treatments to date: 2 Follow up Diagnosis: sebaceous hyperplasia Location: face Last visit: 1 month ago Symptoms: none Status: improved, wanting more treated today Procedure performed: electrodesiccation Date of procedure: 02/01/24 Number of treatments to date: 2 Acne Location: waistline and lower back Duration: 3.5 years Nature of acne: pimples Associated Factors: oily skin Current treatment: BPO cream Established patient All pertinent medical history, medications, and allergies were reviewed. General Exam: alert, oriented to person, place, and time, normal affect, well appearing Unaccompanied A focused exam completed based on patient reported problems, see below: 1. Sebaceous hyperplasia Head - Anterior (Face) Recurrent small yellow papules with a central dell after treatment Reassure, benign. Discussed these can be removed for a cosmetic fee with the hyfrecator if desired. NO COSMETIC FEE TODAY PER PROVIDER Electrodesiccation Diagnosis: Sebaceous Hyperplasia Indication: cosmetic already paid at last visit Location: face Consent: The risks of the procedure were discussed with the patient, including, but not limited to risks of scarring, incomplete removal and recurrence. Verbal consent was obtained from the patient. Method: The lesion was removed by electrodesiccation at a low power setting Post-procedure: Petroleum ointment was applied to the treated area. Post-procedure instructions were reviewed with the patient. 2. Inflamed seborrheic keratosis (14) Left Anterior Neck, Left Posterior Neck, Left Supraclavicular Area (2), Left Upper Arm - Anterior (2), Neck - Anterior, Right Anterior Neck, Right Supraclavicular Area (3), Right Thigh - Anterior (3) Inflamed seborrheic keratoses: pink and brown stuck on verrucous scaly papule with surrounding erythema and bloody crust. The patient was informed that symptomatic seborrheic keratoses are benign growths that become inflamed, itchy, tender, traumatized, caught on clothing, or bleed. Symptomatic lesions can be treated with cryotherapy or curretage. Thicker lesions treated with cryotherapy may require more than one treatment. The patient was instructed to notify the office if abnormal redness or tenderness develops at the treatment site. Cryotherapy today, see procedure note. Diagnosis: Inflamed seborrheic keratosis Indication: Inflamed Consent: Verbal consent was obtained and risks were discussed, including, but not limited to risks of scarring, darker or calliope player pigmentary changes, recurrence, incomplete removal and infection. [...] or tenderness Cryotherapy, skin lesion - Left Anterior Neck, Left Posterior Neck, Left Supraclavicular Area (2), Left Upper Arm - Anterior (2), Neck - Anterior, Right Anterior Neck, Right Supraclavicular Area (3), Right Thigh - Anterior (3) 3. Acne vulgaris Trunk Scattered comedones and inflammatory pustules. The patient was counseled that it may take up to 2-3 months to notice significant improvement of the acne. The use of non-comedogenic cleansers and moisturizers was recommended. Acne treatment plan given today. Start Tretinoin 0.05 % cream to back once at night. tretinoin (Retin-A) 0.05 % cream - Trunk Apply 1.5 g to the face, once daily at evening/night time, 30 day supply Next Visit: 1 month, follow up documented in this encounter [facility] 02-13-2024 Telephone encounter Note Requested Prescriptions Pending Prescriptions Disp Refills potassium chloride 20 mEq TbER [Pharmacy Med Name: POTASSIUM CHLORIDE ER 20MEQ TBCR] 270 tablet 1 Sig: TAKE THREE TABLETS BY MOUTH EVERY DAY Last visit: 01/04/24 PLAN - Continue Skyrizi q4 weeks. - Decrease prednisone by 0.5 mg every 2 weeks. Continue Budesonide 9 mg. - Referral to IBD pharmacist to initiate Entyvio. Patient prefers SQ route. - Follow up in 2 months with labs. Next visit: not yet scheduled Last Labs: 01/04/24 Kate Traylor LPN [facility] [place] 02-13-2024 Miscellaneous Notes Requested Prescriptions Pending Prescriptions Disp Refills potassium chloride 20 mEq TbER [Pharmacy Med Name: POTASSIUM CHLORIDE ER 20MEQ TBCR] 270 tablet 1 Sig: TAKE THREE TABLETS BY MOUTH EVERY DAY Last visit: 01/04/24 PLAN - Continue Skyrizi q4 weeks. - Decrease prednisone by 0.5 mg every 2 weeks. Continue Budesonide 9 mg. - Referral to IBD pharmacist to initiate Entyvio. Patient prefers SQ route. - Follow up in 2 months with labs. Next visit: not yet scheduled Last Labs: 01/04/24 Kate Traylor LPN documented in this encounter [facility] [place] 02-13-2024 Telephone encounter Note Requested Prescriptions Pending Prescriptions Disp Refills predniSONE (DELTASONE) 1 mg tablet [Pharmacy Med Name: PREDNISONE 1MG TABS] 480 tablet 1 Sig: TAKE 4 TABLETS BY MOUTH EVERY AFTERNOON Refused Prescriptions Disp Refills budesonide, enteric coated (ENTOCORT EC) 3 mg 24 hr capsule [Pharmacy Med Name: Budesonide Ec 3Mg Capsules (Amneal)] 180 capsule 1 Sig: TAKE TWO CAPSULES BY MOUTH EVERY DAY Budesonide refilled 02/07/24 Last visit: 01/04/24 PLAN - Continue Skyrizi q4 weeks. - Decrease prednisone by 0.5 mg every 2 weeks. Continue Budesonide 9 mg. - Referral to IBD pharmacist to initiate Entyvio. Patient prefers SQ route. - Follow up in 2 months with labs. Next visit: not yet scheduled Last Labs: 01/04/24 Kate Traylor LPN [facility] [place] 02-13-2024 Miscellaneous Notes Requested Prescriptions Pending Prescriptions Disp Refills predniSONE (DELTASONE) 1 mg tablet [Pharmacy Med Name: PREDNISONE 1MG TABS] 480 tablet 1 Sig: TAKE 4 TABLETS BY MOUTH EVERY AFTERNOON Refused Prescriptions Disp Refills budesonide, enteric coated (ENTOCORT EC) 3 mg 24 hr capsule [Pharmacy Med Name: Budesonide Ec 3Mg Capsules (Amneal)] 180 capsule 1 Sig: TAKE TWO CAPSULES BY MOUTH EVERY DAY Budesonide refilled 02/07/24 Last visit: 01/04/24 PLAN - Continue Skyrizi q4 weeks. - Decrease prednisone by 0.5 mg every 2 weeks. Continue Budesonide 9 mg. - Referral to IBD pharmacist to initiate Entyvio. Patient prefers SQ route. - Follow up in 2 months with labs. Next visit: not yet scheduled Last Labs: 01/04/24 Kate Traylor LPN documented in this encounter [facility] [place] 02-06-2024 Telephone encounter Note Requested Prescriptions Pending Prescriptions Disp Refills budesonide, enteric coated (ENTOCORT EC) 3 mg 24 hr capsule 270 capsule 1 Sig: Take 3 capsules by mouth once daily Last visit: 01/04/24 PLAN - Continue Skyrizi q4 weeks. - Decrease prednisone by 0.5 mg every 2 weeks. Continue Budesonide 9 mg. - Referral to IBD pharmacist to initiate Entyvio. Patient prefers SQ route. - Follow up in 2 months with labs. Next visit: not yet scheduled Last Labs: 01/04/24 Kate Traylor LPN [facility] [place] 02-06-2024 Miscellaneous Notes Requested Prescriptions Pending Prescriptions Disp Refills budesonide, enteric coated (ENTOCORT EC) 3 mg 24 hr capsule 270 capsule 1 Sig: Take 3 capsules by mouth once daily Last visit: 01/04/24 PLAN - Continue Skyrizi q4 weeks. - Decrease prednisone by 0.5 mg every 2 weeks. Continue Budesonide 9 mg. - Referral to IBD pharmacist to initiate Entyvio. Patient prefers SQ route. - Follow up in 2 months with labs. Next visit: not yet scheduled Last Labs: 01/04/24 Kate Traylor LPN documented in this encounter [facility] [place] 02-01-2024 History of Present illness Narrative Follow up Diagnosis: sebaceous hyperplasia Location: face Last visit: 1 month ago Symptoms: none Status: improved, wanting more treated today Procedure performed: electrodesiccation Date of procedure: 12/25/2023 Number of treatments to date: 1 Lesions: Location: scalp, face Duration: months Quality: itchy Modifying factors: aggravated by shaving Associated symptoms: rough Treatments: none All pertinent medical history, medications, and allergies were reviewed. General Exam: alert, oriented to person, place, and time, normal affect, well appearing Unaccompanied A focused exam completed based on patient reported problems, see below: 1. Sebaceous hyperplasia Head - Anterior (Face) Recurrent small yellow papules with a central dell after treatment Reassure, benign. Discussed these can be removed for a cosmetic fee with the hyfrecator if desired. NO COSMETIC FEE TODAY PER PROVIDER Electrodesiccation Diagnosis: Sebaceous Hyperplasia Indication: cosmetic already paid at last visit Location: face Consent: The risks of the procedure were discussed with the patient, including, but not limited to risks of scarring, incomplete removal and recurrence. Verbal consent was obtained from the patient. Method: The lesion was removed by electrodesiccation at a low power setting Post-procedure: Petroleum ointment was applied to the treated area. Post-procedure instructions were reviewed with the patient. 2. Inflamed seborrheic keratosis (16) Left Frontal Scalp (2), Left Parietal Scalp (4), Mid Occipital Scalp, Mid Parietal Scalp (3), Right Occipital Scalp (2), Right Parietal Scalp (3), Right Zygomatic Area Inflamed seborrheic keratoses: pink and brown stuck on verrucous scaly papule with surrounding erythema and bloody crust. The patient was informed that symptomatic seborrheic keratoses are benign growths that become inflamed, itchy, tender, traumatized, caught on clothing, or bleed. Symptomatic lesions can be treated with cryotherapy or curretage. Thicker lesions treated with cryotherapy may require more than one treatment. The patient was instructed to notify the office if abnormal redness or tenderness develops at the treatment site. Cryotherapy today, see procedure note. Diagnosis: Inflamed seborrheic keratosis Indication: Inflamed Consent: Verbal consent was obtained and risks were discussed, including, but not limited to risks of scarring, darker or calliope player pigmentary changes, recurrence, incomplete removal and infection. Method: Liquid nitrogen was used to treat the lesion(s) with two 5-10 second freeze-thaw cycles Number of lesions treated: 16 Post-procedure instructions: Instructions were given orally and in writing. The office will be contacted if the lesion fails to resolve despite treatment, or if a side effect develops such as abnormal crusting, scabbing, redness or tenderness Cryotherapy, skin lesion - Left Frontal Scalp (2), Left Parietal Scalp (4), Mid Occipital Scalp, Mid Parietal Scalp (3), Right Occipital Scalp (2), Right Parietal Scalp (3), Right Zygomatic Area Next Visit: 1 month documented in this encounter [facility] 01-26-2024 Telephone encounter Note [facility] received prescription(s) for rosuvastatin from Dr. Damir Witt's office. Unfortunately, we do not carry or service non-specialty medications. If you would like the medication to be mailed to the patient by a [facility], please consider sending the Rx to [facility] (phone [phone]). Otherwise, please send the Rx to a [facility] outpatient pharmacy or patient's preferred pharmacy. Thanks, Aleah Yang, PharmD Clinical Pharmacist, [employer] [facility] ; Pool: P [facility] Pool #: [id number] [facility] 01-26-2024 Miscellaneous Notes [facility] received prescription(s) for rosuvastatin from Dr. Damir Witt's office. Unfortunately, we do not carry or service non-specialty medications. If you would like the medication to be mailed to the patient by a [facility], please consider sending the Rx to [facility] (phone [phone]). Otherwise, please send the Rx to a [facility] outpatient pharmacy or patient's preferred pharmacy. Thanks, Kate LopezD Clinical Pharmacist, [employer] [facility] [facility] ; Pool: P [facility] Pool #: [id number] documented in this encounter [facility] [place] 01-18-2024 Telephone encounter Note Images from the original note were not included. Jay Paul MD, PhD You35 minutes ago (8:56 AM) PATIENCE Patton, working on the comparison. Thank you. Jay Redding MD, PhD42 minutes ago (8:49 AM) TD Working on the comparison? Sorry for my confusion. The Entyvio is on hold until he tells me if his insurance plan will change or not for 2024. Jay Benton LPN, MD, PhD You2 hours ago (7:31 AM) PATIENCE Mart, Can you let him know that we are working on this and it may take another week or so? Thanks, PATIENCE Traylor LPN [facility] [place] 01-18-2024 Miscellaneous Notes Images from the original note were not included. Jay Paul MD, PhD You35 minutes ago (8:56 AM) PATIENCE Patton, working on the comparison. Thank you. Jay Redding MD, PhD42 minutes ago (8:49 AM) TD Working on the comparison? Sorry for my confusion. The Entyvio is on hold until he tells me if his insurance plan will change or not for 2024. Jay Benton LPN, MD, PhD You2 hours ago (7:31 AM) PATIENCE Mart, Can you let him know that we are working on this and it may take another week or so? Thanks, PATIENCE Traylor LPN documented in this encounter [facility] [place] 01-04-2024 Note HNO ID: [id number] Author: JAY PAUL MD, PhD Service: ? Author Type: Physician Type: Progress Notes Filed: 01/07/2024 14:55 Note Text: .Follow Up Visit SUBJECTIVE 63 year old male with Crohn's disease here for follow-up. Last seen in November 2023. Changes and test results since last visit: - Has had mild worsening of diarrhea, consistency Over the last 2 days intermittent RLQ abdominal pain. Is currently on 1 mg of prednisone. Has noticed more frequent anxiety. Is on Budesonide 9 mg. Current Clinical Symptoms # of bowel movements daily: 2-3 # of liquid stools daily: 0 Consistency: soft Bloody bowel movements: no Urgency: no Abdominal pain: yes Abdominal distention: no Nausea/vomiting: no Weight loss over last 3 months: no General well-being: slightly below average CBC: WBC (k/uL) Date Value 01/04/2024 9.64 Hematocrit (%) Date Value 01/04/2024 44.9 MCV (fL) Date Value 01/04/2024 92.4 Platelet Count (k/uL) Date Value 01/04/2024 250 Lymphocytes % (%) Date Value 10/16/2023 14.4 Hepatic Function Panel: Albumin (g/dL) Date Value 01/04/2024 4.1 Bilirubin, Total (mg/dL) Date Value 01/04/2024 0.3 Bilirubin, Direct (mg/dL) Date Value 06/22/2022 0.6 (H) Alkaline Phosphatase (U/L) Date Value 01/04/2024 87 AST (U/L) Date Value 01/04/2024 24 ALT (U/L) Date Value 01/04/2024 30 Protein, Total (g/dL) Date Value 01/04/2024 6.8 Current Outpatient Medications Medication Sig Dispense Refill COPPER ORAL Take by mouth. risankizumab-rzaa (SKYRIZI) 360 mg/2.4 mL (150 mg/mL) wearable injector Inject 360 mg/2.4 mL subcutaneously once every 4 weeks 2.4 mL 11 budesonide, enteric coated (ENTOCORT EC) 3 mg 24 hr capsule Take 3 capsules by mouth once daily 270 capsule 1 metoprolol succinate ER (TOPROL XL) 25 mg 24 hr tablet Take 1 tablet by mouth two times a day. 180 tablet 3 predniSONE (DELTASONE) 1 mg tablet Take 4 tablets by mouth every afternoon. 480 tablet 1 potassium chloride 20 mEq TbER Take 3 tablets by mouth once daily. 270 tablet 1 cyanocobalamin 1,000 mcg/mL TAKE DIRECTED ONCE A MONTH 1,000 mcg/mL 3 mL 1 lisinopril (ZESTRIL) 20 mg tablet Take 10 mg by mouth once daily. Cholecalciferol, Vitamin D3, 25 mcg (1,000 unit) cap Take by mouth q 24 HR. ferrous bis-glycinate chelate (IRON BISGLYCINATE CHELATE) 29 mg iron cap Take 1 capsule by mouth once daily. 1 capsule 5 budesonide, enteric coated (ENTOCORT EC) 3 mg 24 hr capsule TAKE 2 CAPS BY MOUTH ONCE DAILY 180 capsule 1 predniSONE (DELTASONE) 5 mg tablet take 1 tablet by mouth once daily 30 tablet 2 potassium chloride (K-TAB) 10 mEq tablet Take 1 tablet by mouth once daily. (Patient not taking: Reported on 01/04/2024) 7 tablet 0 No current facility-administered medications for this visit. ALLERGIES Allergen Reactions Imuran [Azathioprin* Other: See Comments Joint stiffness Tylenol [Acetaminop* Other: See Comments Fever and clammy PHYSICAL EXAMINATION BP 136/86 Pulse 87 Ht 6' 4 (1.93m) Wt 212 lb (96.2kg) SpO2 98% BMI 25.82 kg/(m2). General Appearance: alert, oriented x 3, pleasant and in no acute distress Heart:regular rate and rhythm Abdomen: Not distended. Normal bowel sounds. Soft and non-tender. No masses or organomegaly. Skin: no rashes or lesions Lymph:No cervical, axillary, supraclavicular, or inguinal adenopathy. Assessment IMPRESSION José Miguel Carreno JR is a 63 year old male with PMH of Crohn's disease, diagnosed in s/p ileocolonic resection, previously on infliximab, adalimumab, certolizumab, ustekinumab, vedolizumab, off label upadacitinib in 2020, currently, steroid-dependent and on rizankizumab since September 2021, currently q4, history of SMA pseudoaneurysm with massive GI bleeding, s/p coiling and embolization in 2022, coming in today for follow up. 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 Currently on prednisone 1 mg, the lowest dose of prednisone that he has been on for over 3 years now. Also on budesonide 9 mg. Is on Skyrizi every 4 weeks. Patient has mild intermittent symptoms of diarrhea and occasional abdominal pain. Recent CT enterography shows active ileitis involving 20 cm of small bowel with an area of stricture distally and associated upstream bowel dilation, mildly improved compared to prior. There is also probable associated fistula without clear evidence of abscess. Regarding next steps in management, it is reassuring that patient has been able to nearly discontinue systemic steroid use and imaging and symptoms are stable. He has made some progress of Skyrizi objectively with decrease lengt (more content not included)... [facility] 01-04-2024 History of Present illness Narrative .Follow Up Visit SUBJECTIVE 63 year old male with Crohn's disease here for follow-up. Last seen in November 2023. Changes and test results since last visit: - Has had mild worsening of diarrhea, consistency Over the last 2 days intermittent RLQ abdominal pain. Is currently on 1 mg of prednisone. Has noticed more frequent anxiety. Is on Budesonide 9 mg. Current Clinical Symptoms # of bowel movements daily: 2-3 # of liquid stools daily: 0 Consistency: soft Bloody bowel movements: no Urgency: no Abdominal pain: yes Abdominal distention: no Nausea/vomiting: no Weight loss over last 3 months: no General well-being: slightly below average CBC: WBC (k/uL) Date Value 01/04/2024 9.64 Hematocrit (%) Date Value 01/04/2024 44.9 MCV (fL) Date Value 01/04/2024 92.4 Platelet Count (k/uL) Date Value 01/04/2024 250 Lymphocytes % (%) Date Value 10/16/2023 14.4 Hepatic Function Panel: Albumin (g/dL) Date Value 01/04/2024 4.1 Bilirubin, Total (mg/dL) Date Value 01/04/2024 0.3 Bilirubin, Direct (mg/dL) Date Value 06/22/2022 0.6 (H) Alkaline Phosphatase (U/L) Date Value 01/04/2024 87 AST (U/L) Date Value 01/04/2024 24 ALT (U/L) Date Value 01/04/2024 30 Protein, Total (g/dL) Date Value 01/04/2024 6.8 Current Outpatient Medications Medication Sig Dispense Refill COPPER ORAL Take by mouth. risankizumab-rzaa (SKYRIZI) 360 mg/2.4 mL (150 mg/mL) wearable injector Inject 360 mg/2.4 mL subcutaneously once every 4 weeks 2.4 mL 11 budesonide, enteric coated (ENTOCORT EC) 3 mg 24 hr capsule Take 3 capsules by mouth once daily 270 capsule 1 metoprolol succinate ER (TOPROL XL) 25 mg 24 hr tablet Take 1 tablet by mouth two times a day. 180 tablet 3 predniSONE (DELTASONE) 1 mg tablet Take 4 tablets by mouth every afternoon. 480 tablet 1 potassium chloride 20 mEq TbER Take 3 tablets by mouth once daily. 270 tablet 1 cyanocobalamin 1,000 mcg/mL TAKE DIRECTED ONCE A MONTH 1,000 mcg/mL 3 mL 1 lisinopril (ZESTRIL) 20 mg tablet Take 10 mg by mouth once daily. Cholecalciferol, Vitamin D3, 25 mcg (1,000 unit) cap Take by mouth q 24 HR. ferrous bis-glycinate chelate (IRON BISGLYCINATE CHELATE) 29 mg iron cap Take 1 capsule by mouth once daily. 1 capsule 5 budesonide, enteric coated (ENTOCORT EC) 3 mg 24 hr capsule TAKE 2 CAPS BY MOUTH ONCE DAILY 180 capsule 1 predniSONE (DELTASONE) 5 mg tablet take 1 tablet by mouth once daily 30 tablet 2 potassium chloride (K-TAB) 10 mEq tablet Take 1 tablet by mouth once daily. (Patient not taking: Reported on 01/04/2024) 7 tablet 0 No current facility-administered medications for this visit. ALLERGIES Allergen Reactions Imuran [Azathioprin* Other: See Comments Joint stiffness Tylenol [Acetaminop* Other: See Comments Fever and clammy PHYSICAL EXAMINATION BP 136/86 Pulse 87 Ht 6' 4 (1.93m) Wt 212 lb (96.2kg) SpO2 98% BMI 25.82 kg/(m^2). General Appearance: alert, oriented x 3, pleasant and in no acute distress Heart:regular rate and rhythm Abdomen: Not distended. Normal bowel sounds. Soft and non-tender. No masses or organomegaly. Skin: no rashes or lesions Lymph:No cervical, axillary, supraclavicular, or inguinal adenopathy. Assessment IMPRESSION José Miguel Carreno JR is a 63 year old male with PMH of Crohn's disease, diagnosed in 1999's s/p ileocolonic resection, previously on infliximab, adalimumab, certolizumab, ustekinumab, vedolizumab, off label upadacitinib in 2020, currently, steroid-dependent and on rizankizumab since September 2021, currently q4, history of SMA pseudoaneurysm with massive GI bleeding, s/p coiling and embolization in 2022, coming in today for follow up. 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 Currently on prednisone 1 mg, the lowest dose of prednisone that he has been on for over 3 years now. Also on budesonide 9 mg. Is on Skyrizi every 4 weeks. Patient has mild intermittent symptoms of diarrhea and occasional abdominal pain. Recent CT enterography shows active ileitis involving 20 cm of small bowel with an area of stricture distally and associated upstream bowel dilation, mildly improved compared to prior. There is also probable associated fistula without clear evidence of abscess. Regarding next steps in management, it is reassuring that patient has been able to nearly discontinue systemic steroid use and imaging and symptoms are stable. He has made some progress of Skyrizi objectively with decrease length of inflamed small bowel. We discussed adding Entyvio, which patient is open to. We also discussed role for surgery, however, patient would like to avoid this as much as possible. We discussed that if he does not have adequate response to Entyvio, this would need to be considered. Physician Global Assessment of Disease Activity: severe disease PLAN - Continue Skyrizi q4 weeks. - Decrease prednisone by 0.5 mg every 2 weeks. Continue Budesonide 9 mg. - Referral to IBD pharmacist to initiate Entyvio. Patient prefers SQ route. - Follow up in 2 months with labs. Jay Anand MD, PhD January 04, 2024 5:34 PM documented in this encounter [facility] [place] 01-04-2024 History of Present illness Narrative Radiology Service Progress Note PATIENT NAME: José Miguel Carreno JR DATE OF SERVICE: January 04, 2024 TIME: 10:17 AM PATIENT IDENTITY VERIFICATION COMPLETED USING TWO (2) IDENTIFIERS: Name and Date of confirmed by patient verbally. FALL SCREENING: Has the patient had 2 falls in the last year or 1 fall with injury or currently using an Ambulatory Assistive Device (Walker, Cane, Wheelchair, Crutches, etc.)? No PATIENT GENDER DATA: Male PATIENT RELEVANT IMPLANT DATA REVIEWED: Not Applicable PATIENT PRESENTS WITH AN IMPLANTABLE OR ATTACHED DOFFER: No RADIOLOGY DEPARTMENT: CT; Exam(s) Completed: Cardiac PERIPHERAL IV DATA: Not applicable SIGNED BY: RT Hadley(Coni) January 04, 2024 10:17 AM documented in this encounter [facility] [place] 01-04-2024 Note HNO ID: [id number] Author: JYOTI SCHULTZ RT(R) Service: Radiology Author Type: Senior Web Engineer Type: Progress Notes Filed: 01/04/2024 10:18 Note Text: Radiology Service Progress Note PATIENT NAME: José Miguel Carreno JR DATE OF SERVICE: January 04, 2024 TIME: 10:17 AM PATIENT IDENTITY VERIFICATION COMPLETED USING TWO (2) IDENTIFIERS: Name and Date of confirmed by patient verbally. FALL SCREENING: Has the patient had 2 falls in the last year or 1 fall with injury or currently using an Ambulatory Assistive Device (Walker, Cane, Wheelchair, Crutches, etc.)? No PATIENT GENDER DATA: Male PATIENT RELEVANT IMPLANT DATA REVIEWED: Not Applicable PATIENT PRESENTS WITH AN IMPLANTABLE OR ATTACHED DOFFER: No RADIOLOGY DEPARTMENT: CT; Exam(s) Completed: Cardiac PERIPHERAL IV DATA: Not applicable SIGNED BY: RT Hadley(R) January 04, 2024 10:17 AM [facility] 01-02-2024 Telephone encounter Note Can you [facility] [place] 01-02-2024 Miscellaneous Notes Can you documented in this encounter [facility] [place] 01-01-2024 Telephone encounter Note Images from the original note were not included. Received via mail from [employer] from [employer] 12/05/23 A copy sent to scanning Patient is approved for free medication from hse coordinator, documented in this encounter no follow up required of denial letter Kate Traylor LPN [facility] [place] 01-01-2024 Miscellaneous Notes Images from the original note were not included. Received via mail from [employer] from [employer] 12/05/23 A copy sent to scanning Patient is approved for free medication from hse coordinator, documented in this encounter no follow up required of denial letter Kate Traylor LPN Images from the original note were not included. Fax approval received a copy sent to scanning. Kate Traylor LPN During phone call with patient 12/15/23 patient advised thus nurse he was approved for free medication from [employer] for 2 years. Call placed to [employer] spoke with rep Fabiano Leonard and requested the approval letter for Skizi every 4 weeks be faxed to this office. Rep transferred the call to the [facility] to facilitate this request. Spoke with rep Alanna Singh Who stated the patient was approved 12/14/23 up to 2 years if coverage is still not available via insurance. Awaiting fax approval letter Kate Traylor LPN Appeal letter faxed successfully to [facility] pharmacy appeals department [phone]. Appeal letter faxed successfully to [employer] [phone]. Kate Traylor LPN Images from the original note were not included. Jay Paul MD, PhD Kate Traylor LPN Hi Kate, Thank you. Letter looks good. PATIENCE Traylor LPN Appeal letter composed and routed to Dr Moss for review/approval. Kate Traylor LPN Images from the original note were not included. Received fax from [place] dated 11/25/23 A copy sent to [facility]. A copy faxed to [employer] . Kate Traylor LPN Late entry from 11/23/23 received call from patient requesting a prior auth be submitted to his insurance for Skyrizi 360 mg OBI every 4 weeks. Patient is re-applying for patient assistance and needs a new denial letter to determine if he will continue to qualify for continued support from [employer]. 11/24/23 Call placed to [employer] [phone] spoke with pharmacy student Joan Tabares to initiate a prior auth request. Per Rep this patients prior auths are handled by his plan,Joanna [phone]. Call transferred spoke with rep Kianna Leonard in member services auth request submitted and sent for further review . Per rep reply will be sent in 5 calendar days via fax. Kate Traylor LPN documented in this encounter [facility] [place] 12-28-2023 History of Present illness Narrative Radiology Service Progress Note DATE OF SERVICE: December 28, 2023 TIME: 9:44 AM PATIENT WEIGHT: 214LBS PATIENT IDENTITY VERIFICATION COMPLETED USING TWO (2) STANDARD IDENTIFIERS: Name and Date of confirmed by patient verbally. FALL SCREENING: Has the patient had 2 falls in the last year or 1 fall with injury or currently using an Ambulatory Assistive Device (Walker, Cane, Wheelchair, Crutches, etc.)? No PATIENT GENDER DATA: Male ALLERGIES: Reviewed and unchanged CONTRAST ALLERGY: No EXAM: CT -CONTRAST INDUCED NEPHROPATHY RISK FACTORS: Patient age > 60 years CREATININE: Creatinine Date Value Ref Range Status 12/25/2023 1.09 0.73 - 1.22 mg/dL Final 10/16/2023 1.15 0.73 - 1.22 mg/dL Final 06/09/2023 1.11 0.73 - 1.22 mg/dL Final Estimated Glomerular Filtration Rate Date Value Ref Range Status 12/25/2023 77 >=60 mL/min/1.73m Final Comment: Estimated Glomerular Filtration Rate (eGFR) is calculated using the 2020 CKD-EPI creatinine equation. This equation utilizes serum creatinine, sex, and age as parameters. The creatinine assay has traceable calibration to isotope dilution-mass spectrometry. Refer to KDIGO guidelines for clinical interpretation. In patients with unstable renal function, e.g. those with acute kidney injury, the eGFR may not accurately reflect actual GFR. P.O.C.T. RESULTS: POC done: Yes, See Lab Tab December 28, 2023 TREATMENT: N/A and No Hydration needed. IV SITE: Ambulatory: A peripheral IV was started in the Left antecubital site with a Angio cath: 22 gauge. and A Saline lock was inserted per protocol IV SITE APPEARANCE: Clean,Dry and Intact SIGNATURE: Carmen Real RN PATIENT NAME: José Miguel Carreno JR DATE: December 28, 2023 TIME: 9:44 AM Radiology Service Progress Note DATE OF SERVICE: December 28, 2023 TIME: 10:47 AM PATIENT IDENTITY VERIFICATION COMPLETED USING TWO (2) STANDARD IDENTIFIERS: Name and Date of confirmed by patient verbally and Name and Date of confirmed by identification band. FALL SCREENING: Has the patient had 2 falls in the last year or 1 fall with injury or currently using an Ambulatory Assistive Device (Walker, Cane, Wheelchair, Crutches, etc.)? No PATIENT GENDER DATA: Male PATIENT RELEVANT IMPLANT DATA REVIEWED: Yes PATIENT PRESENTS WITH AN IMPLANTABLE OR ATTACHED DOFFER: No ALLERGIES: Reviewed and unchanged CONTRAST ALLERGY: NO. EXAM: CT -CONTRAST INDUCED NEPHROPATHY RISK FACTORS: Patient age > 60 years CREATININE: Creatinine Date Value Ref Range Status 12/25/2023 1.09 0.73 - 1.22 mg/dL Final 10/16/2023 1.15 0.73 - 1.22 mg/dL Final 06/09/2023 1.11 0.73 - 1.22 mg/dL Final Estimated Glomerular Filtration Rate Date Value Ref Range Status 12/25/2023 77 >=60 mL/min/1.73m Final Comment: Estimated Glomerular Filtration Rate (eGFR) is calculated using the 2020 CKD-EPI creatinine equation. This equation utilizes serum creatinine, sex, and age as parameters. The creatinine assay has traceable calibration to isotope dilution-mass spectrometry. Refer to KDIGO guidelines for clinical interpretation. In patients with unstable renal function, e.g. those with acute kidney injury, the eGFR may not accurately reflect actual GFR. P.O.C.T. RESULTS: POC done: Yes, See Lab Tab December 28, 2023 TREATMENT: N/A PERIPHERAL IV DATA: Ambulatory: A peripheral IV was started in the Left antecubital site with a Angio cath: 22 gauge. RADIOLOGY DEPARTMENT: CT; Exam(s) Completed: Abdomen/Pelvis SIGNATURE: RT Munira(R) PATIENT NAME: José Miguel Carreno JR DATE: December 28, 2023 TIME: 10:47 AM documented in this encounter [facility] [place] 12-28-2023 Note HNO ID: [id number] Author: CARMEN REAL RN Service: Nursing Author Type: Registered Nurse Type: Progress Notes Filed: 12/28/2023 10:48 Note Text: Radiology Service Progress Note DATE OF SERVICE: December 28, 2023 TIME: 9:44 AM PATIENT WEIGHT: 214LBS PATIENT IDENTITY VERIFICATION COMPLETED USING TWO (2) STANDARD IDENTIFIERS: Name and Date of confirmed by patient verbally. FALL SCREENING: Has the patient had 2 falls in the last year or 1 fall with injury or currently using an Ambulatory Assistive Device (Walker, Cane, Wheelchair, Crutches, etc.)? No PATIENT GENDER DATA: Male ALLERGIES: Reviewed and unchanged CONTRAST ALLERGY: No EXAM: CT -CONTRAST INDUCED NEPHROPATHY RISK FACTORS: Patient age > 60 years CREATININE: Creatinine Date Value Ref Range Status 12/25/2023 1.09 0.73 - 1.22 mg/dL Final 10/16/2023 1.15 0.73 - 1.22 mg/dL Final 06/09/2023 1.11 0.73 - 1.22 mg/dL Final Estimated Glomerular Filtration Rate Date Value Ref Range Status 12/25/2023 77 >=60 mL/min/1.73m? Final Comment: Estimated Glomerular Filtration Rate (eGFR) is calculated using the 2020 CKD-EPI creatinine equation. This equation utilizes serum creatinine, sex, and age as parameters. The creatinine assay has traceable calibration to isotope dilution-mass spectrometry. Refer to KDIGO guidelines for clinical interpretation. In patients with unstable renal function, e.g. those with acute kidney injury, the eGFR may not accurately reflect actual GFR. P.O.C.T. RESULTS: POC done: Yes, See Lab Tab December 28, 2023 TREATMENT: N/A and No Hydration needed. IV SITE: Ambulatory: A peripheral IV was started in the Left antecubital site with a Angio cath: 22 gauge. and A Saline lock was inserted per protocol IV SITE APPEARANCE: Clean,Dry and Intact SIGNATURE: Carmen Real RN PATIENT NAME: José Miguel Carreno JR DATE: December 28, 2023 TIME: 9:44 AM [facility] 12-28-2023 Note HNO ID: [id number] Author: JAQUELINE GAXIOLA RT(R) Service: ? Author Type: Technologist Type: Progress Notes Filed: 12/28/2023 11:36 Note Text: Radiology Service Progress Note DATE OF SERVICE: December 28, 2023 TIME: 10:47 AM PATIENT IDENTITY VERIFICATION COMPLETED USING TWO (2) STANDARD IDENTIFIERS: Name and Date of confirmed by patient verbally and Name and Date of confirmed by identification band. FALL SCREENING: Has the patient had 2 falls in the last year or 1 fall with injury or currently using an Ambulatory Assistive Device (Walker, Cane, Wheelchair, Crutches, etc.)? No PATIENT GENDER DATA: Male PATIENT RELEVANT IMPLANT DATA REVIEWED: Yes PATIENT PRESENTS WITH AN IMPLANTABLE OR ATTACHED DOFFER: No ALLERGIES: Reviewed and unchanged CONTRAST ALLERGY: NO. EXAM: CT -CONTRAST INDUCED NEPHROPATHY RISK FACTORS: Patient age > 60 years CREATININE: Creatinine Date Value Ref Range Status 12/25/2023 1.09 0.73 - 1.22 mg/dL Final 10/16/2023 1.15 0.73 - 1.22 mg/dL Final 06/09/2023 1.11 0.73 - 1.22 mg/dL Final Estimated Glomerular Filtration Rate Date Value Ref Range Status 12/25/2023 77 >=60 mL/min/1.73m? Final Comment: Estimated Glomerular Filtration Rate (eGFR) is calculated using the 2020 CKD-EPI creatinine equation. This equation utilizes serum creatinine, sex, and age as parameters. The creatinine assay has traceable calibration to isotope dilution-mass spectrometry. Refer to KDIGO guidelines for clinical interpretation. In patients with unstable renal function, e.g. those with acute kidney injury, the eGFR may not accurately reflect actual GFR. P.O.C.T. RESULTS: POC done: Yes, See Lab Tab December 28, 2023 TREATMENT: N/A PERIPHERAL IV DATA: Ambulatory: A peripheral IV was started in the Left antecubital site with a Angio cath: 22 gauge. RADIOLOGY DEPARTMENT: CT; Exam(s) Completed: Abdomen/Pelvis SIGNATURE: Jaqueline Gaxiola RT(R) PATIENT NAME: José Miguel Carreno JR DATE: December 28, 2023 TIME: 10:47 AM [facility] 12-27-2023 History of Present illness Narrative Images from the original note were not included. José Miguel Carreno [id number] 12/27/23 Subjective: Phone consult 11/15 63 yom sent to PT by Dr Horn for dizziness Onset end of September Recovered from Covid, Crohn's pt tapering prednisone, felt light headed, not vertigo, just off Room does not spin Unsteady Occasional headache Denies neck pain Vision hearing is fine Denies numbness hands Neuroma L foot and numb 3rd Objective/Examination: Postional Testing: Negative BPPV testing: Negative Postural Hypotension head fixed lay down sit up testing: Negative Ocular: Negative Gaze Evoked Nystagmus, Smooth Pursuit, Saccades Strabismus observation: No obvious misalgnment noticed. No exo/eso/hyper/hypo tropia noticed. No phoria noticed. Head Impulse Test: Negative [employer] optodrum test: Negative Upper Motor Neuron: Negative finger to nose, hoffmans, hyperreflexia, rapid alt hand movt *Cervical Motion: Impaired motion and discomfort/pain *Cervical Massage vibration test with goggles: reproduced familiar dizziness, nystagmus, loss of balance Vertebral Artery Screening test (VAST): negative Smooth Pursuit Neck Tosrion Test (SPNT): Negative *Cervical Proprioception Testing: Poor head neck awareness *Sensory Organization Performance Test: Challenge tests 4 and fail 6 Fukuda test: negative Ocular assessment with goggles: Negative spontaneous nystagmus, gaze evoked nystagmus High Frequency Head shake (2 Hz) with video goggles: Negative Therapeutic Intervention: reEvaluation Sop fail 6 improving Fukuda neg hfhs neg Mental task fail 4 words Cdvat pass Ms pass Gentle rom neck/arms Postural balance Heat neck and aerobics Written HEP See flow sheet Aerobics heat 38 Assessment: Suspected Therapy Diagnosis: Cervical Mediated Dizziness & post covid Problems: Dizziness with massage vibration neck, Neck pain and poor motion, Motion Sensitivity dizziness, Impaired balance fail tests 4 & 6, jimenez medium fall risk Goals: Eliminate dizziness massage vibration neck, restore neck motion, restore motion sensitivity, restore balance and pass sop tests and jimenez low fall risk Plan: Cervical manual therapy, vestibular rehabilitation, vision therapy, aerobics/heat Frequency/Duration: Once every other week Potential: Good I hereby deem this POC medically necessary. Please sign below. Edgardo Ramey, DScPT, OCS, COMT, AIB-VAM Director Vestibular Rehabilitation documented in this encounter [facility] 12-25-2023 History of Present illness Narrative Skin Check Location: Patient requests a skin examination from the waist up Dermatologic history: history of Actinic Keratosis, history of skin cancer Last visit: 07/24/2023 Established patient Lesions: Location: Face, and scalp Duration: Years Quality: Bothersome, itchy Modifying factors: Recurrent Associated symptoms: Some spongy bumps, some scaly bumps Treatments: None. Would like to discuss removal today All pertinent medical history, medications, and allergies were reviewed. General Exam: alert, oriented to person, place, and time, normal affect, well appearing A complete skin exam was offered, pt declined. Areas not examined despite medical recommendation: From the waist down Scalp, Examined Head, Face Examined Neck Examined Chest Examined Back Examined Abdomen Examined Right arm Examined Left arm Examined Hands Examined Digits,nails: Examined 1. Seborrheic keratosis Stuck on verrucous, variably pigmented papules and plaques. Patient was counseled regarding these benign growths. Removal is normally not necessary, but they may be removed if they are symptomatic or for cosmetic reasons. 2. Lentigines Scattered hanson macules in sun-exposed areas. The patient was informed that lentigines are benign pigmented lesions that occur on sun-exposed and sun-damaged skin. No treatment is necessary. Recommended regular use of broad spectrum sunscreen SPF 30 or higher 3. Melanocytic nevus of trunk Scattered benign appearing, regular brown to light brown melanocytic papules and macules with similar morphology Counseled regarding these benign growths. Rarely, a nevus can develop into malignant melanoma, so any changing nevi should be promptly re-evaluated. 4. Personal history of other malignant neoplasm of skin 5. Optional surgery Head - Anterior (Face) Small yellow papules with a central dell. Reassure, benign. Discussed these can be removed for a cosmetic fee with the hyfrecator if desired. Electrodesiccation Diagnosis: Sebaceous Hyperplasia Indication: Cosmetic Location: Face Consent: The risks of the procedure were discussed with the patient, including, but not limited to risks of scarring, incomplete removal and recurrence. Verbal consent was obtained from the patient. Method: The lesion was removed by electrodesiccation at a low power setting Post-procedure: Petroleum ointment was applied to the treated area. Post-procedure instructions were reviewed with the patient. Waiver and 350$ cosmetic fee obtained. [id number] Next Visit: as scheduled documented in this encounter [facility] 12-22-2023 Telephone encounter Note Patient's request for medication is as follows: Requested Prescriptions Pending Prescriptions Disp Refills risankizumab-rzaa (SKYRIZI) 360 mg/2.4 mL (150 mg/mL) wearable injector 2.4 mL 5 Sig: Inject 360 mg subcutaneously every 8 weeks. Please approve the above prescription(s) to electronically send to pharmacy. Ken Webb RN [facility] 12-22-2023 Miscellaneous Notes Patient's request for medication is as follows: Requested Prescriptions Pending Prescriptions Disp Refills risankizumab-rzaa (SKYRIZI) 360 mg/2.4 mL (150 mg/mL) wearable injector 2.4 mL 5 Sig: Inject 360 mg subcutaneously every 8 weeks. Please approve the above prescription(s) to electronically send to pharmacy. Ken Webb RN documented in this encounter [facility] [place] 12-19-2023 Telephone encounter Note Images from the original note were not included. Fax approval received a copy sent to scanning. Kate Traylor LPN [facility] 12-19-2023 Telephone encounter Note During phone call with patient 12/15/23 patient advised thus nurse he was approved for free medication from [employer] for 2 years. Call placed to [employer] spoke with rep Fabiano Leonard and requested the approval letter for Skyrizi every 4 weeks be faxed to this office. Rep transferred the call to the [facility] to facilitate this request. Spoke with rep Alanna Singh Who stated the patient was approved 12/14/23 up to 2 years if coverage is still not available via insurance. Awaiting fax approval letter Kate Traylor LPN [facility] 12-13-2023 History of Present illness Narrative Images from the original note were not included. José Miguel Colon Ev [id number] 12/13/23 Subjective: Phone consult 11/15 63 yom sent to PT by Dr Horn for dizziness Onset end of September Recovered from Covid, Crohn's pt tapering prednisone, felt light headed, not vertigo, just off Room does not spin Unsteady Occasional headache Denies neck pain Vision hearing is fine Denies numbness hands Neuroma L foot and numb 2nd Objective/Examination: Postional Testing: Negative BPPV testing: Negative Postural Hypotension head fixed lay down sit up testing: Negative Ocular: Negative Gaze Evoked Nystagmus, Smooth Pursuit, Saccades Strabismus observation: No obvious misalgnment noticed. No exo/eso/hyper/hypo tropia noticed. No phoria noticed. Head Impulse Test: Negative Optokinetics optodrum test: Negative Upper Motor Neuron: Negative finger to nose, hoffmans, hyperreflexia, rapid alt hand movt *Cervical Motion: Impaired motion and discomfort/pain *Cervical Massage vibration test with goggles: reproduced familiar dizziness, nystagmus, loss of balance Vertebral Artery Screening test (VAST): negative Smooth Pursuit Neck Tosrion Test (SPNT): Negative *Cervical Proprioception Testing: Poor head neck awareness *Sensory Organization Performance Test: Challenge tests 4 and fail 6 Fukuda test: negative Ocular assessment with goggles: Negative spontaneous nystagmus, gaze evoked nystagmus High Frequency Head shake (2 Hz) with video goggles: Negative Therapeutic Intervention: Evaluation Gentle rom neck/arms Postural balance Heat neck and aerobics Written HEP See flow sheet Assessment: Suspected Therapy Diagnosis: Cervical Mediated Dizziness Problems: Dizziness with massage vibration neck, Neck pain and poor motion, Motion Sensitivity dizziness, Impaired balance fail tests 4 & 6, jimenez medium fall risk Goals: Eliminate dizziness massage vibration neck, restore neck motion, restore motion sensitivity, restore balance and pass sop tests and jimenez low fall risk Plan: Cervical manual therapy, vestibular rehabilitation, vision therapy, aerobics/heat Frequency/Duration: Once every other week Potential: Good I hereby deem this POC medically necessary. Please sign below. Edgardo Ramey, DScPT, OCS, COMT, AIB-VAM Director Vestibular Rehabilitation documented in this encounter [facility] 12-11-2023 Telephone encounter Note PLAN 10/26/23 - Continue prednisone 3 mg for 2 weeks. At that time, increase budesonide 9 mg and decrease prednisone by 0.5 mg every 4 weeks. - Repeat potassium in 4 weeks. - CT enterography in 3 months with return visit in person at that time. Requested Prescriptions Pending Prescriptions Disp Refills budesonide, enteric coated (ENTOCORT EC) 3 mg 24 hr capsule 270 capsule 1 Sig: Take 3 capsules by mouth once daily Kate Traylor LPN [facility] [place] 12-11-2023 Miscellaneous Notes PLAN 10/26/23 - Continue prednisone 3 mg for 2 weeks. At that time, increase budesonide 9 mg and decrease prednisone by 0.5 mg every 4 weeks. - Repeat potassium in 4 weeks. - CT enterography in 3 months with return visit in person at that time. Requested Prescriptions Pending Prescriptions Disp Refills budesonide, enteric coated (ENTOCORT EC) 3 mg 24 hr capsule 270 capsule 1 Sig: Take 3 capsules by mouth once daily Kate Traylor LPN documented in this encounter [facility] [place] 12-05-2023 Telephone encounter Note Appeal letter faxed successfully to [facility] pharmacy appeals department [phone]. Appeal letter faxed successfully to Julio arambula [phone]. Kate Traylor LPN [facility] [place] 12-04-2023 Telephone encounter Note Images from the original note were not included. Jay Paul MD, PhD Kate Traylor LPN [place] Kate, Thank you. Letter looks good. PATIENCE Traylor LPN [facility] [place] 12-04-2023 Telephone encounter Note Appeal letter composed and routed to Dr Moss for review/approval. Kate Traylor LPN [facility] [place] 12-04-2023 Telephone encounter Note Images from the original note were not included. Received fax from Joanna dated 11/25/23 A copy sent to scanning. A copy faxed to Constantine arambula . Kate Traylor LPN [facility] [place] 11-28-2023 Telephone encounter Note Late entry from 11/23/23 received call from patient requesting a prior auth be submitted to his insurance for Skyrizi 360 mg OBI every 4 weeks. Patient is re-applying for patient assistance and needs a new denial letter to determine if he will continue to qualify for continued support from [employer]. 11/24/23 Call placed to [facility] [phone] spoke with pharmacy student Joan Tabares to initiate a prior auth request. Per Rep this patients prior auths are handled by his plan,Joanna [phone]. Call transferred spoke with rep Kianna Leonard in member services auth request submitted and sent for further review . Per rep reply will be sent in 5 calendar days via fax. Kate Traylor LPN [facility] [place] 11-28-2023 History of Present illness Narrative Images from the original note were not included. José Miguel Colon Ev [id number] 11/16/23 Subjective: Phone consult 11/15 63 yom sent to PT by Dr Horn for dizziness Onset end of September Recovered from Covid, Crohn's pt tapering prednisone, felt light headed, not vertigo, just off Room does not spin Unsteady Occasional headache Denies neck pain Vision hearing is fine Denies numbness hands Neuroma L foot and numb Objective/Examination: Postional Testing: Negative BPPV testing: Negative Postural Hypotension head fixed lay down sit up testing: Negative Ocular: Negative Gaze Evoked Nystagmus, Smooth Pursuit, Saccades Strabismus observation: No obvious misalgnment noticed. No exo/eso/hyper/hypo tropia noticed. No phoria noticed. Head Impulse Test: Negative Optokinetics optodrum test: Negative Upper Motor Neuron: Negative finger to nose, hoffmans, hyperreflexia, rapid alt hand movt *Cervical Motion: Impaired motion and discomfort/pain *Cervical Massage vibration test with goggles: reproduced familiar dizziness, nystagmus, loss of balance Vertebral Artery Screening test (VAST): negative Smooth Pursuit Neck Tosrion Test (SPNT): Negative *Cervical Proprioception Testing: Poor head neck awareness *Sensory Organization Performance Test: Challenge tests 4 and fail 6 Fukuda test: negative Ocular assessment with goggles: Negative spontaneous nystagmus, gaze evoked nystagmus High Frequency Head shake (2 Hz) with video goggles: Negative Therapeutic Intervention: Evaluation Gentle rom neck/arms Postural balance Heat neck and aerobics Written HEP See flow sheet Assessment: Suspected Therapy Diagnosis: Cervical Mediated Dizziness Problems: Dizziness with massage vibration neck, Neck pain and poor motion, Motion Sensitivity dizziness, Impaired balance fail tests 4 & 6, jimenez medium fall risk Goals: Eliminate dizziness massage vibration neck, restore neck motion, restore motion sensitivity, restore balance and pass sop tests and jimenez low fall risk Plan: Cervical manual therapy, vestibular rehabilitation, vision therapy, aerobics/heat Frequency/Duration: Once every other week Potential: Good I hereby deem this POC medically necessary. Please sign below. Edgardo Ramey, DalePT, OCS, COMT, AIB-VAM Director Vestibular Rehabilitation documented in this encounter [facility] 11-06-2023 Telephone encounter Note Received call from patient stating he dose not see the orders placed form his last virtual visit 10/16/23. PLAN 10/16/23 - Continue prednisone 3 mg for 2 weeks. At that time, increase budesonide 9 mg and decrease prednisone by 0.5 mg every 4 weeks. - Repeat potassium in 4 weeks. - CT enterography in 3 months with return visit in person at that time. Orders pended please advise. CTe Potassium Creatinine for CTe Please advise. [facility] [place] 11-06-2023 Miscellaneous Notes Received call from patient stating he dose not see the orders placed form his last virtual visit 10/16/23. PLAN 10/16/23 - Continue prednisone 3 mg for 2 weeks. At that time, increase budesonide 9 mg and decrease prednisone by 0.5 mg every 4 weeks. - Repeat potassium in 4 weeks. - CT enterography in 3 months with return visit in person at that time. Orders pended please advise. CTe Potassium Creatinine for CTe Please advise. documented in this encounter [facility] [place] 10-26-2023 History of Present illness Narrative VIRTUAL VISIT FOLLOW UP José Miguel Carreno JR [id number] 1960 has requested a video telemedicine follow-up visit. José Miguel Carreno JR verbalized informed consent to proceed with the video telemedicine follow-up visit. José Miguel F Ev RODRIGUEZ was informed that the details of this video visit would be recorded as part of their electronic medical record. I have communicated my name and active licensure. The patient's identity and physical location were verified at the time of this visit. Either the patient or their legal uniforms sales representative has been informed of the risks and benefits of -- and alternatives to -- treatment through a remote evaluation and consents to proceed with the evaluation remotely. Patient location at time of call: none Additional encounter participants and relationship: none No chief complaint on file. 63 year old male with Crohn's disease here for follow-up. Last seen July 2023. Changes and test results since last visit: - Had COVID 3 weeks ago, mild symptoms. Received paxlovid. Had mild pneumonia, s/p antibiotic therapy, doxycycline. Had mild increase in number of bowel movements. - Currently, on 3 mg of prednisone and budesonide 9 mg. States that whenever tapering done prednisone, developed mild diarrhea, fatigue. On potassium 60 mEq. Current Clinical Symptoms # of bowel movements daily: 4-5 # of liquid stools daily: 4-5 Consistency: loose Bloody bowel movements: no Urgency: yes Abdominal pain: no Abdominal distention: no Nausea/vomiting: no Weight loss over last 3 months: yes: 5 lbs. 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 No date: Syncope No date: Thrombocytopenia (HCC) PAST SURGICAL HISTORY No date: BACK SURGERY HX Comment: L5 No date: BOWEL RESECTION HX No date: 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 No date: SINUS SURGERY HX FAMILY HISTORY Problem Relation Age of Onset No Known Problems Mother Heart Attack Father Hypertension Father Coronary Artery Disease Father s/p CABG Hypertension Brother Social History Tobacco Use Smoking status: Never Smokeless tobacco: Never Vaping Use Vaping Use: Never used Substance Use Topics Alcohol use: Not Currently Drug use: Never Current Outpatient Medications Medication Sig Dispense Refill metoprolol succinate ER (TOPROL XL) 25 mg 24 hr tablet Take 1 tablet by mouth two times a day. 180 tablet 3 budesonide, enteric coated (ENTOCORT EC) 3 mg 24 hr capsule TAKE 2 CAPS BY MOUTH ONCE DAILY 180 capsule 1 predniSONE (DELTASONE) 1 mg tablet Take 4 tablets by mouth every afternoon. 480 tablet 1 potassium chloride 20 mEq TbER Take 3 tablets by mouth once daily. 270 tablet 1 cyanocobalamin 1,000 mcg/mL TAKE DIRECTED ONCE A MONTH 1,000 mcg/mL 3 mL 1 lisinopril (ZESTRIL) 20 mg tablet Take 10 mg by mouth once daily. predniSONE (DELTASONE) 5 mg tablet take 1 tablet by mouth once daily 30 tablet 2 potassium chloride (K-TAB) 10 mEq tablet Take 1 tablet by mouth once daily. 7 tablet 0 risankizumab-rzaa (SKYRIZI) 360 mg/2.4 mL (150 mg/mL) wearable injector Inject 360 mg subcutaneously every 8 weeks. 2.4 mL 5 Cholecalciferol, Vitamin D3, 25 mcg (1,000 unit) cap Take by mouth q 24 HR. ferrous bis-glycinate chelate (IRON BISGLYCINATE CHELATE) 29 mg iron cap Take 1 capsule by mouth once daily. 1 capsule 5 No current facility-administered medications for this visit. ALLERGIES Allergen Reactions Imuran [Azathioprin* Other: See Comments Joint stiffness Tylenol [Acetaminop* Other: See Comments Fever and clammy PHYSICAL FINDINGS OF NOTE: General: alert and appropriate, in no distress and well-hydrated, well nourished , Psych: Appropriate mood and interaction Skin: no rash noted, Neck: full ROM, no cervical LNs noted, Respiratory: breathing non-labored, and no grunting/flaring/retractions, Chest: equal chest rise with normal respiratory effort, Neuro: Patient seen sitting with normal appearing strength and coordination REVIEWED ITEMS CBC: WBC (k/uL) Date Value 10/16/2023 12.05 (H) Hematocrit (%) Date Value 10/16/2023 44.1 MCV (fL) Date Value 10/16/2023 88.9 Platelet Count (k/uL) Date Value 10/16/2023 212 Lymphocytes % (%) Date Value 10/16/2023 14.4 Hepatic Function Panel: Albumin (g/dL) Date Value 10/16/2023 3.8 (L) Bilirubin, Total (mg/dL) Date Value 10/16/2023 0.5 Bilirubin, Conjugated (mg/dL) Date Value 06/22/2022 0.6 (H) Alkaline Phosphatase (U/L) Date Value 10/16/2023 97 AST (U/L) Date Value 10/16/2023 24 ALT (U/L) Date Value 10/16/2023 40 Protein, Total (g/dL) Date Value 10/16/2023 6.4 Assessment IMPRESSION José Miguel Carreno JR is a 62 year old male with PMH of Crohn's disease, diagnosed in 1999's s/p ileocolonic resection, previously on infliximab, adalimumab, certolizumab, ustekinumab, vedolizumab, off label upadacitinib in 2020, currently, steroid-dependent and on rizankizumab since September 2021, recently hospitalized for 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 Currently, is on the lowest dose of prednisone that he has been on for over 3 years now, currently at 3 mg, and budesonide 6 mg. Is on Skyrizi every 4 weeks. Of note, patient had a recent mild COVID infection, not requiring hospitalization. Feels overall improved, denies shortness of breath. Regarding next steps in management, as outlined below, we will continue to attempt prednisone taper. PLAN - Continue prednisone 3 mg for 2 weeks. At that time, increase budesonide 9 mg and decrease prednisone by 0.5 mg every 4 weeks. - Repeat potassium in 4 weeks. - CT enterography in 3 months with return visit in person at that time. I spent 30 minutes in the virtual visit, with more than 50% of the total [id number] time of the visit in counseling / coordination of care. I have confirmed and edited as necessary, the PFSH and ROS obtained by others. I will communicate my recommendations and prescriptions to the patient's primary care provider. Unrelated to E/M, telemedicine, or virtual visit service provided within previous 7 days. No E/M service or procedure anticipated within next 24 hours. Jay Anand MD, PhD October 26, 2023 2:38 PM documented in this encounter [facility] [place] 10-17-2023 Telephone encounter Note ----- Message from Damir Wtit MD sent at 10/17/2023 8:36 AM EDT ----- Regarding: Lipid panel Lipid panel shows high Triglecyrides I put a consult to preventive cards for further eval. No emergency. Thanks [facility] [place] 10-17-2023 Miscellaneous Notes ----- Message from Damir Witt MD sent at 10/17/2023 8:36 AM EDT ----- Regarding: Lipid panel Lipid panel shows high Triglecyrides I put a consult to preventive cards for further eval. No emergency. Thanks documented in this encounter [facility] [place] 10-16-2023 Telephone encounter Note Call from patient requesting refill. Requested Prescriptions Pending Prescriptions Disp Refills metoprolol succinate ER (TOPROL XL) 25 mg 24 hr tablet 180 tablet 3 Sig: Take 1 tablet by mouth two times a day. Patient last seen 07/25/23 Shellie Elder [facility] [place] 10-16-2023 Miscellaneous Notes Call from patient requesting refill. Requested Prescriptions Pending Prescriptions Disp Refills metoprolol succinate ER (TOPROL XL) 25 mg 24 hr tablet 180 tablet 3 Sig: Take 1 tablet by mouth two times a day. Patient last seen 07/25/23 Shellie Elder documented in this encounter [facility] [place] 10-11-2023 Telephone encounter Note Images from the original note were not included. Jay Paul MD, PhD You1 hour ago (10:51 AM) PATIENCE Mart, Yes, lets go ahead and niya up CBC, CRP and CMP. Can you help with scheduling a virtual visit in October? Jamie, Brodie CBC,CMP, CRP lab order pended. Called spoke with patient assisted with scheduling a virtual visit 10/26/23 2:30 pm. Kate Traylor LPN [facility] [place] 10-11-2023 Miscellaneous Notes Images from the original note were not included. Jay Paul MD, PhD You1 hour ago (10:51 AM) PATIENCE Mart, Yes, lets go ahead and niya up CBC, CRP and CMP. Can you help with scheduling a virtual visit in October? Thanks, Brodie CBC,CMP, CRP lab order pended. Called spoke with patient assisted with scheduling a virtual visit 10/26/23 2:30 pm. Kate Traylor LPN documented in this encounter [facility] [place] 09-11-2023 Telephone encounter Note Requested Prescriptions Pending Prescriptions Disp Refills budesonide, enteric coated (ENTOCORT EC) 3 mg 24 hr capsule 180 capsule 1 Sig: TAKE 2 CAPS BY MOUTH ONCE DAILY predniSONE (DELTASONE) 1 mg tablet 480 tablet 1 Sig: Take 4 tablets by mouth every afternoon. potassium chloride 20 mEq TbER 270 tablet 1 Sig: Take 3 tablets by mouth once daily. cyanocobalamin 1,000 mcg/mL 3 mL 1 Sig: TAKE DIRECTED ONCE A MONTH 1,000 mcg/mL Kate Traylor LPN [facility] [place] 09-11-2023 Miscellaneous Notes Requested Prescriptions Pending Prescriptions Disp Refills budesonide, enteric coated (ENTOCORT EC) 3 mg 24 hr capsule 180 capsule 1 Sig: TAKE 2 CAPS BY MOUTH ONCE DAILY predniSONE (DELTASONE) 1 mg tablet 480 tablet 1 Sig: Take 4 tablets by mouth every afternoon. potassium chloride 20 mEq TbER 270 tablet 1 Sig: Take 3 tablets by mouth once daily. cyanocobalamin 1,000 mcg/mL 3 mL 1 Sig: TAKE DIRECTED ONCE A MONTH 1,000 mcg/mL Kate Traylor LPN documented in this encounter [facility] [place] 09-04-2023 Telephone encounter Note Requested Prescriptions Pending Prescriptions Disp Refills predniSONE (DELTASONE) 1 mg tablet [Pharmacy Med Name: PREDNISONE 1 MG TABLET] 120 tablet 0 Sig: take 4 tablets by mouth once daily budesonide, enteric coated (ENTOCORT EC) 3 mg 24 hr capsule [Pharmacy Med Name: BUDESONIDE EC 3 MG CAPSULE] 60 capsule 2 Sig: TAKE 2 CAPS BY MOUTH ONCE DAILY Last visit: 07/13/23 PLAN -Increase budesonide to 9 mg and decrease prednisone to 4.5 for 4 weeks. If doing well can decrease further to 4 mg of prednisone for 4 weeks then taper off by 0.5 mg every 4 weeks. -CT abdomen in 6 to 8 weeks with return visit at that time I spent minutes in the virtual visit, with more than 50% of the total [id number] time of the visit in counseling / coordination of care. I have confirmed and edited as necessary, the PFSH and ROS obtained by others. I will communicate my recommendations and prescriptions to the patient's primary care provider. Unrelated to E/M, telemedicine, or virtual visit service provided within previous 7 days. No E/M service or procedure anticipated within next 24 hours. Next visit: not yet scheduled Last Labs: 07/18/23 Kate Traylor LPN [facility] [place] 09-04-2023 Miscellaneous Notes Requested Prescriptions Pending Prescriptions Disp Refills predniSONE (DELTASONE) 1 mg tablet [Pharmacy Med Name: PREDNISONE 1 MG TABLET] 120 tablet 0 Sig: take 4 tablets by mouth once daily budesonide, enteric coated (ENTOCORT EC) 3 mg 24 hr capsule [Pharmacy Med Name: BUDESONIDE EC 3 MG CAPSULE] 60 capsule 2 Sig: TAKE 2 CAPS BY MOUTH ONCE DAILY Last visit: 07/13/23 PLAN -Increase budesonide to 9 mg and decrease prednisone to 4.5 for 4 weeks. If doing well can decrease further to 4 mg of prednisone for 4 weeks then taper off by 0.5 mg every 4 weeks. -CT abdomen in 6 to 8 weeks with return visit at that time I spent minutes in the virtual visit, with more than 50% of the total [id number] time of the visit in counseling / coordination of care. I have confirmed and edited as necessary, the PFSH and ROS obtained by others. I will communicate my recommendations and prescriptions to the patient's primary care provider. Unrelated to E/M, telemedicine, or virtual visit service provided within previous 7 days. No E/M service or procedure anticipated within next 24 hours. Next visit: not yet scheduled Last Labs: 07/18/23 Ktae Traylor LPN documented in this encounter [facility] [place] 08-15-2023 Telephone encounter Note Received return call from patient Who reports Time frame : 2 weeks BM per day: 3 Tenesmus: occasionally positive Stool consistency: loose formed to mushy consistency, reports seeing grease on stool Bright Red blood: denies Rectal Pain: denies Urgency: positive mild Passing Gas: positive has increased Abdominal pain: denies Nausea: denies Vomiting: denies Appetite: decreased Recent dietary changes: denies Please advise Kate Traylor LPN [facility] [place] 08-15-2023 Miscellaneous Notes Received return call from patient Who reports Time frame : 2 weeks BM per day: 3 Tenesmus: occasionally positive Stool consistency: loose formed to mushy consistency, reports seeing grease on stool Bright Red blood: denies Rectal Pain: denies Urgency: positive mild Passing Gas: positive has increased Abdominal pain: denies Nausea: denies Vomiting: denies Appetite: decreased Recent dietary changes: denies Please advise Kate Traylor LPN documented in this encounter [facility] [place] 08-09-2023 Telephone encounter Note Requested Prescriptions Pending Prescriptions Disp Refills predniSONE (DELTASONE) 1 mg tablet 120 tablet 0 Sig: Take 4 tablets by mouth once daily Last visit: 07/13/23 PLAN -Increase budesonide to 9 mg and decrease prednisone to 4.5 for 4 weeks. If doing well can decrease further to 4 mg of prednisone for 4 weeks then taper off by 0.5 mg every 4 weeks. -CT abdomen in 6 to 8 weeks with return visit at that time I spent minutes in the virtual visit, with more than 50% of the total [id number] time of the visit in counseling / coordination of care. I have confirmed and edited as necessary, the PFSH and ROS obtained by others. I will communicate my recommendations and prescriptions to the patient's primary care provider. Unrelated to E/M, telemedicine, or virtual visit service provided within previous 7 days. No E/M service or procedure anticipated within next 24 hours. Next visit: not yet scheduled Last Labs: 07/18/23 Kate Traylor LPN [facility] [place] 08-09-2023 Miscellaneous Notes Requested Prescriptions Pending Prescriptions Disp Refills predniSONE (DELTASONE) 1 mg tablet 120 tablet 0 Sig: Take 4 tablets by mouth once daily Last visit: 07/13/23 PLAN -Increase budesonide to 9 mg and decrease prednisone to 4.5 for 4 weeks. If doing well can decrease further to 4 mg of prednisone for 4 weeks then taper off by 0.5 mg every 4 weeks. -CT abdomen in 6 to 8 weeks with return visit at that time I spent minutes in the virtual visit, with more than 50% of the total [id number] time of the visit in counseling / coordination of care. I have confirmed and edited as necessary, the PFSH and ROS obtained by others. I will communicate my recommendations and prescriptions to the patient's primary care provider. Unrelated to E/M, telemedicine, or virtual visit service provided within previous 7 days. No E/M service or procedure anticipated within next 24 hours. Next visit: not yet scheduled Last Labs: 07/18/23 Kate Traylor LPN documented in this encounter [facility] [place] 08-08-2023 History of Present illness Narrative The appointment was cancelled for this patient. Lotus Sanches RRT documented in this encounter [facility] [place] 07-26-2023 History of Present illness Narrative HVTI TELEPHONE VISIT PROGRESS NOTE This is a telephone encounter initiated for an established patient, parent or guardian not originating from a related Evaluation & Management service provided within the previous 7 days nor leading to an Evaluation & Management service or procedure within the next 24 hours or soonest available appointment. José Miguel Carreno JR has consented to this telephone encounter. Persons Present: patient Chief Complaint/Reason: Cardiomyopathy HPI: José Miguel Carreno JR is a 63 year old White male with a PMHx of Crohn's (on skyrizi, budesonide, prednisone at home) s/p multiple abdominal surgeries including partial colectomy, RV dysplasia s/p defibrillator placement, and HTN. Doing well. Pickle ball, golf doing everything he wants. Walking with his . BP low sodium diet - 120/65-120/70. Metoprolol reduced 1.5 Admitted 06/21/2022-06/26/2022 because GI bleed due to SMA pseudoaneurysm rupture HOSPITAL COURSE Admitted to [facility] on 06/21/2022 for concerns of GI bleeding with 2-3 blood BM per day for 4 days. Had received 2 previous EGDs at outside hospitals between 06/18 and 06/21 which showed no acute cause of bleed. After admission, pt had hgb of 8.7. There was a small pocket of pneumatosis on CT abd pelvis and active IBD. CORS evaluated in ED and found no acute need for surgery, a repeat lactate was lower than initial admission lactate >4. That evening (06/21), pt had syncopal episode and another bloody BM. Repeat CT abd pelvis showed no active bleed, CT brain/spine showed no acute process. Pt transferred to MICU where he received massive transfusion protocol receiving 17 units of blood. Diffuse bleeding seen on bedside scope in ICU, ruptured SMA pseudoaneurysm seen on angiogram. Embolized in ICU, pt intubated pre-procedure on 06/22, extubated 06/23. Hypovolemic/hemorraghic shock resolved. Transferred to [facility] on 06/24 for continued management post procedure Hemoglobin remained stable for 48hours and consistent non bloody BM. Patient was also started on zosyn for pneumatosis intestinalis and risk of bacterial translocation. Switched to augemtin on discharge (1 more dose as OP to complete 7 days course). He was also started on fluconazole for esophagitis. Will continue for total 14 days During hospital stay, BP medication held in the setting of hypotension 2/2 blood loss. SBP 130-140 in the hospital off medication. Will defer to PCP to resume them when/if needed Since he was discharged he has been feeling better. Because of severe GI bleeding he was discharged off BP meds. In the context of progressive HTN he restarted amlodipine, lisinopril and metoprolol. Of note his BP was super high in the context of high sodium diet and has normalized on low sodium diet + meds. He has been having almost daily episodes of feeling slow and sluggish associated with a HR of 140-160 on his watch. No ICD shocks. The episodes would last minutes. No specific triggers. He is able to perform physical activity without significant limitations. No other complaints. He is aware when his BP is high and has had some episodes of headaches. His cardiomyopathy was diagnosed in the context of VFIb arrest while he was having a severe CD exacerbation - Of note his K levels were very low until recently ( eg.g. 1.8 not unusual ) Currently on a low sodium diet - feeling better - if he has dietary transgression more episodes. Lisinopril 10 mg now and BP has been well controlled. Sleep never good. He has a hard time. Can interrupt. Heart operating better. Physically not a good shape. Nothing like a routine- pickleball- golfing. Trying to get a routine of phys Low 130/70mmHg Data Reviewed: Most recent labs and imaging results. Latest Reference Range & Units 06/09/23 08:18 07/18/23 08:53 Sodium 136 - 144 mmol/L 141 Potassium 3.7 - 5.1 mmol/L 3.9 4.0 Chloride 97 - 105 mmol/L 106 (H) CO2 22 - 30 mmol/L 22 BUN 9 - 24 mg/dL 15 Creatinine 0.73 - 1.22 mg/dL 1.11 Glucose 74 - 99 mg/dL 127 (H) Protein, Total 6.3 - 8.0 g/dL 6.7 Calcium 8.5 - 10.2 mg/dL 9.8 Albumin 3.9 - 4.9 g/dL 4.2 Bilirubin, Total 0.2 - 1.3 mg/dL 0.4 Alkaline Phosphatase 38 - 113 U/L 105 ALT 10 - 54 U/L 21 AST 14 - 40 U/L 18 Anion Gap 9 - 18 mmol/L 13 eGFR >=60 mL/min/1.73m 76 CRP <0.9 mg/dL <0.3 <0.3 WBC 3.70 - 11.00 k/uL 11.39 (H) 9.77 RBC 4.20 - 6.00 m/uL 4.98 4.93 Hemoglobin 13.0 - 17.0 g/dL 14.8 14.4 Hematocrit 39.0 - 51.0 % 43.5 43.1 Platelet Count 150 - 400 k/uL 244 221 MCV 80.0 - 100.0 fL 87.3 87.4 MCH 26.0 - 34.0 pg 29.7 29.2 MCHC 30.5 - 36.0 g/dL 34.0 33.4 MPV 9.0 - 12.7 fL 9.7 9.6 RDW-CV 11.5 - 15.0 % 13.3 14.0 DTYPE Auto Neut% % 63.3 Abs Neut (ANC) 1.45 - 7.50 k/uL 6.18 Lymph% % 21.4 Abs Lymph 1.00 - 4.00 k/uL 2.09 [place]% % 10.1 Abs [place] <0.87 k/uL 0.99 (H) Eosin% % 2.9 Abs Eosin <0.46 k/uL 0.28 Baso% % 1.1 Abs Baso <0.11 k/uL 0.11 (H) Immature Gran % % 1.2 (H): Data is abnormally high - Exam indication: Cardiomyopathy - The left ventricle is normal in size. Left ventricular systolic function is normal. EF = 55 5% (2D biplane) Normal left ventricular diastolic function. - The right ventricle is mildly dilated. Right ventricular systolic function is normal. - The visualized aorta is dilated with a maximal dimension of 4.1 cm. - Trivial MR. - Trivial to 1+ TR. - Estimated right ventricular systolic pressure is likely underestimated due to a weak or incomplete tricuspid regurgitation signal and is, at least, 30 mmHg consistent with normal pulmonary artery pressures. Estimated right atrial pressure is 8 mmHg based on IVC assessment. - The patient has not had a prior CC echocardiographic exam for comparison. us: Final result Visible to patient: Yes (seen) Dx: Crohn's disease of small intestine wi... 0 Result Notes 1 Follow-up Encounter Component Ref Range & Units 6 mo ago 8 mo ago Copper 70 - 140 ug/dL 67 Low 58 Low CM Comment: This test was developed and its performance characteristics determined by [facility] [place] It has not been cleared or approved by the FDA. [facility] is regulated under CLIA as qualified to perform high-complexity testing. This test is used for clinical purposes. It should not be regarded as investigational or for research. SINGLE LEAD ICD EVALUATION RV only lead provides some atrial diagnostics. PRESENTS FOR: In clinic device check and OPD with Dr. Fay. PRESENTING EGM: /VS UNDERLYING RHYTHM: SR BATTERY STATUS: Battery is at beginning of service (HODA). COUNTERS SINCE: 06/14/23 ATRIAL ARRHYTHMIAS: There were 0 triggered episodes of atrial high rates. VENTRICULAR ARRHYTHMIAS: There have 5 nsVT detections confirmed by EGM. LEAD MEASUREMENTS: Capture and sensing are appropriate. The pacing outputs maintain safety margin. Review of the lead impedance trends are normal. IMPLANT SITE/ SYMPTOMS: The incision and pocket are pain-free (0/10), well healed and without signs of erosion or infection. No arm swelling, syncope, pre-syncope or device related pocket stimulation. OTHER DIAGNOSTICS: RV pacing 0%. PROGRAMMING CHANGES MADE TODAY: Programmed the RV output based on today's capture testing results. FOLLOW UP: Remotes every 13 weeks and yearly in clinic visits. Blake Pelayo RN NOTE TO PROVIDERS: CARD Flowsheets contain detailed device programming and testing data. Paceart/Interrogation PDF can be found under CARDIAC DATA AND REPORT, Scanned Documents section. Assessment: No diagnosis found. NYHA Functional Class: I Stage: B heart failure Palpitations recurrent. ICD in place - Single Lead Cardiomyopathy- MRI reviewed with Dr Rae Leong. NO major criteria for ARVD. Mild biventricular dysfunction. ECHO looks normal 2D biventricular function. Strain intermediate range. Normal filling pressures Crohn's disease severe Recent admission because of severe GI bleeding requiring massive transfusion protocol- sp embolization Hypertension well controlled on current medications Plan: Calcium Score Lipid profile If doing well follow up in 1 year with an echocardiogram Total Time Spent: 5-10 minutes Damir Witt MD Answers submitted by the patient for this visit: Review of Systems Heart Failure (Submitted on 07/25/2023) Fever : No Night sweats: No Recent unintentional weight change: No A cough: No Difficulty Breathing?: No Chest pain: No Leg Swelling: No Skipping or irregular heartbeats?: No Feel like passing out?: No Black tarry stools: No Nausea: No Diarrhea: Yes Swelling in your abdomen?: No Fill up quickly when you eat?: No Difficulty Urinating?: No Joint pain or stiffness: No Muscle aches: No A rash: No Dizziness: No Headaches: No documented in this encounter [facility] [place] 07-25-2023 Instructions Dread Fay MD - 07/25/2023 2:41 PM EDT Next Steps: 1). You can decrease your metoprolol to 25mg daily at night and 12.5mg daily in the morning. Please monitor for recurrent symptoms of palpitations and let me know if these are increasing in frequency 2). Continue Q3 month remote transmission for your device with yearly in person follow up (or virtual) documented in this encounter [facility] [place] 07-25-2023 Note SINGLE LEAD ICD EVAL UATION RV only lead provides some atrial diagnostics. PRESENTS FOR: In clinic device check and OPD with Dr. Fay. PRESENTING EGM: /VS UNDERLYING RHYTHM: SR BATTERY STATUS: Battery is at beginning of service (HODA). COUNTERS SINCE: 06/14/23 ATRIAL ARRHYTHMIAS: There were 0 triggered episodes of atrial high rates. VENTRICULAR ARRHYTHMIAS: There have 5 nsVT detections confirmed by EGM. LEAD MEASUREMENTS: Capture and sensing are appropriate. The pacing outputs maintain safety margin. Review of the lead impedance trends are normal. IMPLANT SITE/ SYMPTOMS: The incision and pocket are pain-free (0/10), well healed and without signs of erosion or infection. No arm swelling, syncope, pre-syncope or device related pocket stimulation. OTHER DIAGNOSTICS: RV pacing 0%. PROGRAMMING CHANGES MADE TODAY: Programmed the RV output based on today's capture testing results. FOLLOW UP: Remotes every 13 weeks and yearly in clinic visits. Blake Pelayo RN NOTE TO PROVIDERS: CARD Flowsheets contain detailed device programming and testing data. Paceart/Interrogation PDF can be found under CARDIAC DATA AND REPORT, Scanned Documents section. [facility] 07-25-2023 History of Present illness Narrative Images from the original note were not included. [facility] Department of Cardiovascular Medicine SECTION OF CARDIAC PACING and ELECTROPHYSIOLOGY OUTPATIENT VISIT DATE July 25, 2023 OUTPATIENT VISIT TYPE ESTABLISHED PRIMARY CARE PHYSICIAN: SHADE HORN [address] [place] [address] REFERRING PHYSICIAN: Damir Witt [id number] [facility] [id number] CHIEF COMPLAINT: SVT and device management HISTORY OF PRESENT ILLNESS: Mr. Carreno is a 63 year old male who presents today for follow-up visit for SVT and device management. He was last seen in office 12/13/2022. 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 His cardiomyopathy was diagnosed in the context of VFib arrest while he was having a severe Crohn's disease exacerbation. Echo showed EF=50-55%. Cath showed normal coronaries. He also has a history of very low potassium levels. He established care with Dr Witt 10/12/2022. He reported having almost daily episodes of feeling slow and sluggish associated with a HR of 140-160 on his watch. No ICD shocks. The episodes would last minutes. No specific triggers. He was given a Zio monitor which showed episodes of SVT longest episode lasting 25 seconds. He is maintained on metoprolol which was uptitrated to 25mg in AM and 12.5mg in PM. Since the increase he noted less palpitations. This was increased further to 25mg BID at the time of his last visit. His cMRI discs were received from OSH in 2020 which was done due to concern for RV dysplsia but was negative for this. His echo from this morning shows an EF of 55%. He denies chest pain, shortness of breath, orthopnea, cough, edema, palpitations, PND, lightheadedness or syncope. 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 SINUS SURGERY HX SOCIAL HISTORY Social History Tobacco Use Smoking status: Never Smokeless tobacco: Never Vaping Use Vaping Use: Never used Substance Use Topics Alcohol use: Not Currently Drug use: Never FAMILY HISTORY Problem Relation Age of Onset No Known Problems Mother Heart Attack Father Hypertension Father Coronary Artery Disease Father s/p CABG Hypertension Brother ALLERGIES: ALLERGIES Allergen Reactions Imuran [Azathioprin* Other: See Comments Joint stiffness Tylenol [Acetaminop* Other: See Comments Fever and clammy MEDICATIONS: lisinopril (ZESTRIL) 20 mg tablet Take 10 mg by mouth once daily. predniSONE (DELTASONE) 1 mg tablet Take 1 tablet by mouth once daily. potassium chloride 20 mEq TbER Take 3 tablets by mouth once daily. potassium chloride (K-TAB) 10 mEq tablet Take 1 tablet by mouth once daily. budesonide, enteric coated (ENTOCORT EC) 3 mg 24 hr capsule Take 2 capsules by mouth once daily. risankizumab-rzaa (SKYRIZI) 360 mg/2.4 mL (150 mg/mL) wearable injector Inject 360 mg subcutaneously every 8 weeks. metoprolol succinate ER (TOPROL XL) 25 mg 24 hr tablet Take 1 tablet by mouth two times a day. Cholecalciferol, Vitamin D3, 25 mcg (1,000 unit) cap Take by mouth q 24 HR. cyanocobalamin 1,000 mcg/mL TAKE DIRECTED ONCE A MONTH Injection for 30 ferrous bis-glycinate chelate (IRON BISGLYCINATE CHELATE) 29 mg iron cap Take 1 capsule by mouth once daily. predniSONE (DELTASONE) 5 mg tablet take 1 tablet by mouth once daily Richard Sierra RN PHYSICAL EXAMINATION: BP 142/82 Pulse 67 Ht 193 cm (6' 4 ) Wt 97.1 kg (214 lb) BMI 26.05 kg/m General: Well appearing, in no acute distress. Skin: No clubbing, no cyanosis. Eyes: Extra ocular movements intact Neck: No jugular venous distention, no carotid bruits, carotids have a normal upstroke Lungs: Clear to auscultation bilaterally, no wheezing or rhonchi. Heart: Regular rhythm, PMI not displaced, S1, S2 normal, no murmur. Abdomen: Soft, nontender, bowel sounds normal, Extremities: No peripheral edema . Neuro: Oriented to person, place and time, alert, cooperative, gait coordinated. CARDIOVASCULAR MEDICINE TESTING: Last ECHO Result Conclusion ECHO Collected: 07/25/2023 8:55 AM (Final result) Impression: CONCLUSIONS: - Exam indication: Cardiomyopathy - The left ventricle is normal in size. Left ventricular systolic function is normal. EF = 55 5% (2D biplane) Normal left ventricular diastolic function. - The right ventricle is mildly dilated. Right ventricular systolic function is normal. - The visualized aorta is dilated with a maximal dimension of 4.1 cm. - Trivial MR. - Trivial to 1+ TR. - Estimated right ventricular systolic pressure is likely underestimated due to a weak or incomplete tricuspid regurgitation signal and is, at least, 30 mmHg consistent with normal pulmonary artery pressures. Estimated right atrial pressure is 8 mmHg based on IVC assessment. - The patient has not had a prior CC echocardiographic exam for comparison. * * * Final * * * SINGLE LEAD ICD EVALUATION RV only lead provides some atrial diagnostics. PRESENTS FOR: In clinic device check and OPD with Dr. Fay. PRESENTING EGM: /VS UNDERLYING RHYTHM: SR BATTERY STATUS: Battery is at beginning of service (HODA). COUNTERS SINCE: 06/14/23 ATRIAL ARRHYTHMIAS: There were 0 triggered episodes of atrial high rates. VENTRICULAR ARRHYTHMIAS: There have 5 nsVT detections confirmed by EGM. LEAD MEASUREMENTS: Capture and sensing are appropriate. The pacing outputs maintain safety margin. Review of the lead impedance trends are normal. IMPLANT SITE/ SYMPTOMS: The incision and pocket are pain-free (0/10), well healed and without signs of erosion or infection. No arm swelling, syncope, pre-syncope or device related pocket stimulation. OTHER DIAGNOSTICS: RV pacing 0%. PROGRAMMING CHANGES MADE TODAY: Programmed the RV output based on today's capture testing results. FOLLOW UP: Remotes every 13 weeks and yearly in clinic visits. Blake Pelayo RN NOTE TO PROVIDERS: CARD Flowsheets contain detailed device programming and testing data. Paceart/Interrogation PDF can be found under CARDIAC DATA AND REPORT, Scanned Documents section Echo 07/25/2023 CONCLUSIONS: - Exam indication: Cardiomyopathy - The left ventricle is normal in size. Left ventricular systolic function is normal. EF = 55 5% (2D biplane) Normal left ventricular diastolic function. - The right ventricle is mildly dilated. Right ventricular systolic function is normal. - The visualized aorta is dilated with a maximal dimension of 4.1 cm. - Trivial MR. - Trivial to 1+ TR. - Estimated right ventricular systolic pressure is likely underestimated due to a weak or incomplete tricuspid regurgitation signal and is, at least, 30 mmHg consistent with normal pulmonary artery pressures. Estimated right atrial pressure is 8 mmHg based on IVC assessment. - The patient has not had a prior CC echocardiographic exam for comparison. Last EKG Result Conclusion ECG COMPLETE Collected: 07/25/2023 8:09 AM (Preliminary result) Impression: NORMAL SINUS RHYTHM NORMAL ECG Zio Enrollment Dates: 11/02/2022-11/16/2022 Patient had a min HR of 55 bpm, max HR of 245 bpm, and avg HR of 85 bpm. Predominant underlying rhythm was Sinus Rhythm. 63 Supraventricular Tachycardia runs occurred, the run with the fastest interval lasting 10 beats with a max rate of 245 bpm, the longest lasting 25.1 secs with an avg rate of 127 bpm. Isolated SVEs were occasional (1.2%, 61589), SVE Couplets were rare (<1.0%, 281), and SVE Triplets were rare (<1.0%, 68). Isolated VEs were rare (<1.0%), VE Couplets were rare (<1.0%), and no VE Triplets were present. Ventricular Bigeminy and Trigeminy were present. OUTSIDE TESTING ECHO 01/06/2020 Cardiac cath 01/07/2020 Normal coronaries Cardiac MRI 01/08/2020 IMPRESSION: Mr. Carreno is a 63 year old male who presents for follow-up visit for SVT and device management. 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 He was last seen by me 12/2022 after he had a ZIO showing SVT lasting 25 seconds which appeared to be a long RP tachycardia presumably atrial tachycardia. Device check (single-lead with atrial sensing) at that time showed ventricular detections with one-to-one tachycardia with sudden onset and offset with morphology that was similar to sinus suggestive of SVT. At the time his beta-erica was increased to metoprolol succinate 25 mg twice daily. Today he notes significant improvement in symptoms with medical management with beta-erica and there were no significant tachyarrhythmia detections on interrogation today. He denies any palpitations, lightheadedness, dizziness, syncope. He does note some increased lethargy with uptitration of metoprolol. As such advised to reduce metoprolol to 12.5mg in AM and 25mg in PM. Note, prior to Vfib arrest there was mention of RV dyplasia per chart review, he had cMRI at [facility] 01/09/2020 which was not consistent with ARVC. Plan: - Reduce metop to 12.5mg in AM, 25mg in PM due to lethargy - continue q3 month remote transmissions and yearly follow up for device management I personally interviewed, confirmed and edited the above information as obtained by others. CONTACT INFORMATION: Dread Fay MD documented in this encounter [facility] [place] 07-13-2023 History of Present illness Narrative VIRTUAL VISIT FOLLOW UP José Miguel Colon Ev RODRIGUEZ [id number] has requested a video telemedicine follow-up visit. José Miguel Colon Ev RODRIGUEZ verbalized informed consent to proceed with the video telemedicine follow-up visit. José Miguel Colon Ev RODRIGUEZ was informed that the details of this video visit would be recorded as part of their electronic medical record. I have communicated my name and active licensure. The patient's identity and physical location were verified at the time of this visit. Either the patient or their legal uniforms sales representative has been informed of the risks and benefits of -- and alternatives to -- treatment through a remote evaluation and consents to proceed with the evaluation remotely. Patient location at time of call: home Additional encounter participants and relationship: none No chief complaint on file. I had a virtual visit with Mr. Carreno today for follow up of Crohn's disease. UPDATED HISTORY: - Patient is doing well, has not had worsening symptoms. No fever or abdominal pain. - Currently on prednisone 5 mg, budesonide 6 mg. - Has been able to tolerate oral intake without restriction. No nausea or vomiting. Current Clinical Symptoms # of bowel movements daily: 2-3 # of liquid stools daily: 1 Consistency: soft Bloody bowel movements: no Urgency: no Abdominal pain: no Abdominal distention: yes, rarely Nausea/vomiting: no Weight loss over last 3 months: no General well-being: very well 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 60 tablet 0 predniSONE (DELTASONE) 5 mg tablet take 1 tablet by mouth once daily 30 tablet 2 potassium chloride 20 mEq TbER Take 3 tablets by mouth once daily. 90 tablet 2 potassium chloride (K-TAB) 10 mEq tablet Take 1 tablet by mouth once daily. 7 tablet 0 budesonide, enteric coated (ENTOCORT EC) 3 mg 24 hr capsule Take 2 capsules by mouth once daily. [address] (PROTONIX) 40 mg tablet Take 1 tablet by mouth once daily. 30 tablet 5 risankizumab-rzaa (SKYRIZI) 360 mg/2.4 mL (150 mg/mL) wearable injector Inject 360 mg subcutaneously every 8 weeks. 2.4 mL 5 metoprolol succinate ER (TOPROL XL) 25 mg 24 hr tablet Take 1 tablet by mouth two times a day. 135 tablet 3 lisinopril (ZESTRIL) 20 mg tablet Take 10 mg by mouth once daily. Cholecalciferol, Vitamin D3, 25 mcg (1,000 unit) cap Take by mouth q 24 HR. cyanocobalamin 1,000 mcg/mL TAKE DIRECTED ONCE A MONTH Injection for 30 ferrous bis-glycinate chelate (IRON BISGLYCINATE CHELATE) 29 mg iron cap Take 1 capsule by mouth once daily. 1 capsule 5 budesonide (ORTIKOS) 6 mg capsule, extended release Take 6 mg by mouth every morning. No current facility-administered medications for this visit. ALLERGIES Allergen Reactions Imuran [Azathioprin* Other: See Comments Joint stiffness Tylenol [Acetaminop* Other: See Comments Fever and clammy PHYSICAL FINDINGS OF NOTE: General: alert and appropriate, in no distress and well-hydrated, well nourished , Psych: Appropriate mood and interaction Oropharynx: moist mucus membranes, no tonsillar hypertrophy/exudate, uvula midline and pharynx non-erythematous, lips, teeth and gums are without obvious lesion, Neck: full ROM, no cervical LNs noted, Respiratory: breathing non-labored, and no grunting/flaring/retractions, Chest: equal chest rise with normal respiratory effort, Neuro: Patient seen sitting with normal appearing strength and coordination REVIEWED ITEMS CBC: WBC (k/uL) Date Value 06/09/2023 11.39 (H) Hematocrit (%) Date Value 06/09/2023 43.5 MCV (fL) Date Value 06/09/2023 87.3 Platelet Count (k/uL) Date Value 06/09/2023 244 Lymphocytes % (%) Date Value 05/23/2023 19.6 Hepatic Function Panel: Albumin (g/dL) Date Value 06/09/2023 4.2 Bilirubin, Total (mg/dL) Date Value 06/09/2023 0.4 Bilirubin, Conjugated (mg/dL) Date Value 06/22/2022 0.6 (H) Alkaline Phosphatase (U/L) Date Value 06/09/2023 105 AST (U/L) Date Value 06/09/2023 18 ALT (U/L) Date Value 06/09/2023 21 Protein, Total (g/dL) Date Value 06/09/2023 6.7 Assessment IMPRESSION José Miguel Carreno JR is a 62 year old male with PMH of Crohn's disease, diagnosed in 1999's s/p ileocolonic resection, previously on infliximab, adalimumab, certolizumab, ustekinumab, vedolizumab, off label upadacitinib in 2020, currently, steroid-dependent and on rizankizumab since September 2021, recently hospitalized for 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 Recent CT scan reviewed by one of our IBD radiologists and assessment is that suspicion for abscess is very low. Overall his Crohn's disease appears to be stable to somewhat improving in certain areas. He has been able to gain 10 pounds, hemoglobin has normalized as well as albumin. Has not had to have any dietary restrictions at this point does not have nausea vomiting or obstructive symptoms. Currently, is on the lowest dose of prednisone that he has been on for over 3 years now, currently at 5 mg. Is on Skyrizi every 4 weeks. Regarding next steps in management, we recommend obtaining CBC, CRP and CMP now to rule out significant leukocytosis or concern for infection. CT scan of the abdomen in 2 months is recommended to assess for interval change. In the meantime, we will continue to attempt to taper off prednisone. Since he has been on 5 mg dose for so long, we will decrease by 0.5 mg every 4 weeks. In the meantime budesonide will be increased to 9 mg and we will focus on tapering off prednisone before we decrease dose of budesonide. PLAN -Increase budesonide to 9 mg and decrease prednisone to 4.5 for 4 weeks. If doing well can decrease further to 4 mg of prednisone for 4 weeks then taper off by 0.5 mg every 4 weeks. -CT abdomen in 6 to 8 weeks with return visit at that time I spent minutes in the virtual visit, with more than 50% of the total [id number] time of the visit in counseling / coordination of care. I have confirmed and edited as necessary, the PFSH and ROS obtained by others. I will communicate my recommendations and prescriptions to the patient's primary care provider. Unrelated to E/M, telemedicine, or virtual visit service provided within previous 7 days. No E/M service or procedure anticipated within next 24 hours. Jay Anand MD, PhD July 13, 2023 8:03 AM documented in this encounter [facility] [place] 07-12-2023 Telephone encounter Note Requested Prescriptions Pending Prescriptions Disp Refills predniSONE (DELTASONE) 1 mg tablet 60 tablet 0 Sig: Take 1 tablet by mouth once daily. Last visit: 06/08/23 PLAN - CBC, CRP. If significant leukocytosis or patient develops a fever antibiotic therapy will be initiated. - Repeat CT abdomen in 4 weeks. If abscess is confirmed, antibiotic therapy followed by Entyvio will be started. - Case will be discussed with our IBD radiologists to determine likelihood of abscess on most recent CTE. Next visit: 07/13/23 Last Labs: 06/09/23 Kate Traylor LPN [facility] [place] 07-12-2023 Miscellaneous Notes Requested Prescriptions Pending Prescriptions Disp Refills predniSONE (DELTASONE) 1 mg tablet 60 tablet 0 Sig: Take 1 tablet by mouth once daily. Last visit: 06/08/23 PLAN - CBC, CRP. If significant leukocytosis or patient develops a fever antibiotic therapy will be initiated. - Repeat CT abdomen in 4 weeks. If abscess is confirmed, antibiotic therapy followed by Entyvio will be started. - Case will be discussed with our IBD radiologists to determine likelihood of abscess on most recent CTE. Next visit: 07/13/23 Last Labs: 06/09/23 Kate Traylor LPN documented in this encounter [facility] [place] 06-16-2023 Miscellaneous Notes #1 Crohn's disease I called patient to discuss CTE results. The case was reviewed with my radiology colleague. Low suspicion for abscess at this time. Recommendations: - CBC in 4 weeks with follow up visit. - Consider CT abdomen in 3 months. documented in this encounter [facility] [place] 06-08-2023 History of Present illness Narrative VIRTUAL VISIT FOLLOW UP José Miguel Carreno JR [id number] 1960 has requested a video telemedicine follow-up visit. José Miguel Carreno JR verbalized informed consent to proceed with the video telemedicine follow-up visit. José Miguel Carreno JR was informed that the details of this video visit would be recorded as part of their electronic medical record. I have communicated my name and active licensure. The patient's identity and physical location were verified at the time of this visit. Either the patient or their legal uniforms sales representative has been informed of the risks and benefits of -- and alternatives to -- treatment through a remote evaluation and consents to proceed with the evaluation remotely. Patient location at time of call: home Additional encounter participants and relationship: none No chief complaint on file. I had a virtual visit with Mr. Carreno today for follow up of Crohn's disease. Last visit 04/13/23. UPDATED HISTORY: - Feeling well overall, the best that he has felt in 5 years. - Oral intake is adequate. Denies unintentional weight loss. - Currently on 5 mg of prednisone and [address] ENTEROGRAPHY 05/23/23 IMPRESSION: 1. More conspicuous enhancing tracts between adjacent loops of small bowel in the distal ileum suspicious for a web of fistulous abscess. No evidence of a drainable fluid collection. Previously noted associated area of small bowel wall thickening, wall enhancement and mesenteric fat stranding have decreased. 2. Mucosal enhancement and wall thickening of the neoterminal ileum for a length of approximately 5-10 cm suspicious for active inflammation, stable. Current Clinical Symptoms # of bowel movements daily: 2-3 # of liquid stools daily: 1 Consistency: loose, soft, formed Bloody bowel movements: no Urgency: yes, rarely Abdominal pain: yes, rarely Abdominal distention: yes, rarely Nausea/vomiting: no Weight loss over last 3 months: no General well-being: very well 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 SINUS SURGERY HX FAMILY HISTORY Problem Relation Age of Onset No Known Problems Mother Heart Attack Father Hypertension Father Coronary Artery Disease Father s/p CABG Hypertension Brother Social History Tobacco Use Smoking status: Never Smokeless tobacco: Never Vaping Use Vaping Use: Never used Substance Use Topics Alcohol use: Not Currently Drug use: Never Current Outpatient Medications Medication Sig Dispense Refill potassium chloride (K-TAB) 10 mEq tablet Take 1 tablet by mouth once daily. 7 tablet 0 budesonide, enteric coated (ENTOCORT EC) 3 mg 24 hr capsule Take 2 capsules by mouth once daily. [address] (PROTONIX) 40 mg tablet Take 1 tablet by mouth once daily. 30 tablet 5 predniSONE (DELTASONE) 5 mg tablet take 1 tablet by mouth once daily 30 tablet 2 potassium chloride 20 mEq TbER Take 3 tablets by mouth once daily. 90 tablet 2 predniSONE (DELTASONE) 1 mg tablet Take 1 tablet by mouth once daily. 60 tablet 0 risankizumab-rzaa (SKYRIZI) 360 mg/2.4 mL (150 mg/mL) wearable injector Inject 360 mg subcutaneously every 8 weeks. 2.4 mL 5 metoprolol succinate ER (TOPROL XL) 25 mg 24 hr tablet Take 1 tablet by mouth two times a day. 135 tablet 3 lisinopril (ZESTRIL) 20 mg tablet Take 10 mg by mouth once daily. Cholecalciferol, Vitamin D3, 25 mcg (1,000 unit) cap Take by mouth q 24 HR. cyanocobalamin 1,000 mcg/mL TAKE DIRECTED ONCE A MONTH Injection for 30 ferrous bis-glycinate chelate (IRON BISGLYCINATE CHELATE) 29 mg iron cap Take 1 capsule by mouth once daily. 1 capsule 5 budesonide (ORTIKOS) 6 mg capsule, extended release Take 6 mg by mouth every morning. No current facility-administered medications for this visit. ALLERGIES Allergen Reactions Imuran [Azathioprin* Other: See Comments Joint stiffness Tylenol [Acetaminop* Other: See Comments Fever and clammy PHYSICAL FINDINGS OF NOTE: General: alert and appropriate, in no distress and well-hydrated, well nourished , Psych: Appropriate mood and interaction Skin: no rash noted, Head: normocephalic, no abnormality or lesion noted, Eyes: visual acuity is grossly normal, no injection,, and EOMI, Respiratory: breathing non-labored, and no grunting/flaring/retractions, Chest: equal chest rise with normal respiratory effort, Neuro: Patient seen sitting with normal appearing strength and coordination REVIEWED ITEMS CBC: WBC (k/uL) Date Value 05/23/2023 10.84 Hematocrit (%) Date Value 05/23/2023 43.4 MCV (fL) Date Value 05/23/2023 87.7 Platelet Count (k/uL) Date Value 05/23/2023 223 Lymphocytes % (%) Date Value 05/23/2023 19.6 Hepatic Function Panel: Albumin (g/dL) Date Value 01/23/2023 4.1 Bilirubin, Total (mg/dL) Date Value 01/23/2023 0.4 Bilirubin, Conjugated (mg/dL) Date Value 06/22/2022 0.6 (H) Alkaline Phosphatase (U/L) Date Value 01/23/2023 96 AST (U/L) Date Value 01/23/2023 27 ALT (U/L) Date Value 01/23/2023 31 Protein, Total (g/dL) Date Value 01/23/2023 6.7 Assessment IMPRESSION José Miguel Carreno JR is a 62 year old male with PMH of Crohn's disease, diagnosed in 1999's s/p ileocolonic resection, previously on infliximab, adalimumab, certolizumab, ustekinumab, vedolizumab, off label upadacitinib in 2020, currently, steroid-dependent and on rizankizumab since September 2021, recently hospitalized for 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 However, CTE shows fistulizing small bowel disease with possible abscess. Areas of enteritis seen on previous CT scans are stable to improved. Regarding next steps in management, we discussed antibiotic therapy and possibly adding Entyvio in combination with Skyrizi. Patient is quite hesitant to consider antibiotic therapy given he is mostly asymptomatic. We discussed possible alternative approach with close monitoring and repeat CT abdomen in 4 weeks. PLAN - CBC, CRP. If significant leukocytosis or patient develops a fever antibiotic therapy will be initiated. - Repeat CT abdomen in 4 weeks. If abscess is confirmed, antibiotic therapy followed by Entyvio will be started. - Case will be discussed with our IBD radiologists to determine likelihood of abscess on most recent CTE. I spent 30 minutes in the virtual visit, with more than 50% of the total [id number] time of the visit in counseling / coordination of care. I have confirmed and edited as necessary, the PFSH and ROS obtained by others. I will communicate my recommendations and prescriptions to the patient's primary care provider. Unrelated to E/M, telemedicine, or virtual visit service provided within previous 7 days. No E/M service or procedure anticipated within next 24 hours. Jay Anand MD, PhD June 08, 2023 12:40 PM documented in this encounter [facility] [place] 05-23-2023 History of Present illness Narrative Radiology Service Progress Note PATIENT NAME: José Miguel Carreno JR DATE OF SERVICE: May 23, 2023 TIME: 10:02 AM PATIENT IDENTITY VERIFICATION COMPLETED USING TWO (2) IDENTIFIERS: Name and Date of confirmed by patient verbally. FALL SCREENING: Has the patient had 2 falls in the last year or 1 fall with injury or currently using an Ambulatory Assistive Device (Walker, Cane, Wheelchair, Crutches, etc.)? No PATIENT GENDER DATA: Male PATIENT RELEVANT IMPLANT DATA REVIEWED: Not Applicable PATIENT PRESENTS WITH AN IMPLANTABLE OR ATTACHED DOFFER: No RADIOLOGY DEPARTMENT: CT; Exam(s) Completed: Enterography PERIPHERAL IV DATA: Not applicable SIGNED BY: RT Jamee(R) May 23, 2023 10:02 AM Radiology Service Progress Note DATE OF SERVICE: May 23, 2023 TIME: 9:13 AM PATIENT WEIGHT: 211 LBS PATIENT IDENTITY VERIFICATION COMPLETED USING TWO (2) STANDARD IDENTIFIERS: Name and Date of confirmed by patient verbally. FALL SCREENING: Has the patient had 2 falls in the last year or 1 fall with injury or currently using an Ambulatory Assistive Device (Walker, Cane, Wheelchair, Crutches, etc.)? No PATIENT GENDER DATA: Male ALLERGIES: Reviewed and unchanged CONTRAST ALLERGY: No EXAM: CT -CONTRAST INDUCED NEPHROPATHY RISK FACTORS: Patient age > 60 years CREATININE: Creatinine Date Value Ref Range Status 05/22/2023 1.20 0.73 - 1.22 mg/dL Final 01/23/2023 1.26 (H) 0.73 - 1.22 mg/dL Final 11/28/2022 1.16 0.73 - 1.22 mg/dL Final Estimated Glomerular Filtration Rate Date Value Ref Range Status 05/22/2023 69 >=60 mL/min/1.73m Final Comment: Estimated Glomerular Filtration Rate (eGFR) is calculated using the 2020 CKD-EPI creatinine equation. This equation utilizes serum creatinine, sex, and age as parameters. The creatinine assay has traceable calibration to isotope dilution-mass spectrometry. Refer to KDIGO guidelines for clinical interpretation. In patients with unstable renal function, e.g. those with acute kidney injury, the eGFR may not accurately reflect actual GFR. P.O.C.T. RESULTS: N/A May 23, 2023 TREATMENT: N/A and No Hydration needed. IV SITE: Ambulatory: A peripheral IV was started in the Left antecubital site with a Angio cath: 22 gauge. and A Saline lock was inserted per protocol IV SITE APPEARANCE: Clean,Dry and Intact SIGNATURE: Loida Washington RN PATIENT NAME: José Miguel Carreno JR DATE: May 23, 2023 TIME: 9:13 AM documented in this encounter [facility] [place] 05-22-2023 Miscellaneous Notes Sent via . CBC lab order pended please advise. Kate Traylor LPN documented in this encounter [facility] [place] 04-26-2023 Miscellaneous Notes PLAN 04/13/23 - Continue current medications - Repeat potassium - CTE in 4 weeks. - Return visit after the above. At that time, speed of prednisone taper to be discussed. If ongoing severe inflammation, combination therapy with Entyvio can be considered. CTe and creatinine lab test pended please advise. Kate Traylor LPN documented in this encounter [facility] [place] 04-17-2023 Miscellaneous Notes Requested Prescriptions Pending Prescriptions Disp Refills pantoprazole DR (PROTONIX) 40 mg tablet 30 tablet 5 Sig: Take 1 tablet by mouth once daily. See mychart encounter 04/16/[address] Moss for details. Kate Traylor LPN documented in this encounter [facility] [place] 04-17-2023 Miscellaneous Notes Requested Prescriptions Pending Prescriptions Disp Refills budesonide, enteric coated (ENTOCORT EC) 3 mg 24 hr capsule 60 capsule 2 Sig: Take 2 capsules by mouth once daily. Last visit: 04/13/23 Next visit: not yet scheduled Last Labs: 01/23/23 Kate Traylor LPN documented in this encounter [facility] [place] 04-13-2023 History of Present illness Narrative VIRTUAL VISIT FOLLOW UP José Miguel Carreno JR [id number] 1960 has requested a video telemedicine follow-up visit. José Miguel Carreno JR verbalized informed consent to proceed with the video telemedicine follow-up visit. José Miguel Carreno JR was informed that the details of this video visit would be recorded as part of their electronic medical record. I have communicated my name and active licensure. The patient's identity and physical location were verified at the time of this visit. Either the patient or their legal uniforms sales representative has been informed of the risks and benefits of -- and alternatives to -- treatment through a remote evaluation and consents to proceed with the evaluation remotely. Patient location at time of call: home Additional encounter participants and relationship: none No chief complaint on file. I had a virtual visit with Mr. Carreno today for follow up of Crohn's disease. Last seen 01/05/23. UPDATED HISTORY: - In February, had mild diarrhea and intermittent abdominal pain. Over the past few weeks, diarrhea has resolved. - Skyrizi every 4 weeks since . On 5 mg of prednisone (down from 7 mg). Budesonide 6 mg. - C. Difficile testing was negative. Calprotectin borderline elevated. Current Clinical Symptoms # of bowel movements daily: 2-3 # of liquid stools daily: 1 Consistency: formed Bloody bowel movements: no Urgency: no Abdominal pain: yes Abdominal distention: no Nausea/vomiting: no Weight loss over last 3 months: no Gained 18 lbs. General well-being: 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 SINUS SURGERY HX FAMILY HISTORY Problem Relation Age of Onset No Known Problems Mother Heart Attack Father Hypertension Father Coronary Artery Disease Father s/p CABG Hypertension Brother Social History Tobacco Use Smoking status: Never Smokeless tobacco: Never Vaping Use Vaping Use: Never used Substance Use Topics Alcohol use: Not Currently Drug use: Never Current Outpatient Medications Medication Sig Dispense Refill budesonide, enteric coated (ENTOCORT EC) 3 mg 24 hr capsule take 2 capsules by mouth once daily 60 capsule 2 predniSONE (DELTASONE) 5 mg tablet take 1 tablet by mouth once daily 30 tablet 2 esomeprazole (NEXIUM) 20 mg capsule take 1 capsule by mouth once daily 30 capsule 1 potassium chloride 20 mEq TbER Take 3 tablets by mouth once daily. 90 tablet 2 predniSONE (DELTASONE) 1 mg tablet Take 1 tablet by mouth once daily. 60 tablet 0 risankizumab-rzaa (SKYRIZI) 360 mg/2.4 mL (150 mg/mL) wearable injector Inject 360 mg subcutaneously every 8 weeks. 2.4 mL 5 metoprolol succinate ER (TOPROL XL) 25 mg 24 hr tablet Take 1 tablet by mouth two times a day. 135 tablet 3 copper citrate 2 mg capsule Take 1 capsule by mouth once daily. 30 capsule 5 lisinopril (ZESTRIL) 20 mg tablet Take 10 mg by mouth once daily. Cholecalciferol, Vitamin D3, 25 mcg (1,000 unit) cap Take by mouth q 24 HR. cyanocobalamin 1,000 mcg/mL TAKE DIRECTED ONCE A MONTH Injection for 30 ferrous bis-glycinate chelate (IRON BISGLYCINATE CHELATE) 29 mg iron cap Take 1 capsule by mouth once daily. 1 capsule 5 budesonide (ORTIKOS) 6 mg capsule, extended release Take 6 mg by mouth every morning. No current facility-administered medications for this visit. ALLERGIES Allergen Reactions Imuran [Azathioprin* Other: See Comments Joint stiffness Tylenol [Acetaminop* Other: See Comments Fever and clammy PHYSICAL FINDINGS OF NOTE: General: alert and appropriate, in no distress and well-hydrated, well nourished , Respiratory: breathing non-labored, and no grunting/flaring/retractions, Chest: equal chest rise with normal respiratory effort, Neuro: Patient seen sitting with normal appearing strength and coordination REVIEWED ITEMS CBC: WBC (k/uL) Date Value 02/27/2023 9.47 Hematocrit (%) Date Value 02/27/2023 39.5 MCV (fL) Date Value 02/27/2023 85.9 Platelet Count (k/uL) Date Value 02/27/2023 231 Lymphocytes % (%) Date Value 02/27/2023 17.2 Hepatic Function Panel: Albumin (g/dL) Date Value 01/23/2023 4.1 Bilirubin, Total (mg/dL) Date Value 01/23/2023 0.4 Bilirubin, Conjugated (mg/dL) Date Value 06/22/2022 0.6 (H) Alkaline Phosphatase (U/L) Date Value 01/23/2023 96 AST (U/L) Date Value 01/23/2023 27 ALT (U/L) Date Value 01/23/2023 31 Protein, Total (g/dL) Date Value 01/23/2023 6.7 Component Latest Ref Rng & Units 04/10/2023 CALPROTECTIN, FECAL QUANTITATIVE <50 ug/g 64.9 (H) CALPROTECTIN, FECAL INTERP Normal Borderline elevated. Re-evaluation in 4-6 weeks is recommended if clinically indicated. (A) C. difficile PCR Negative for C. difficile toxin by PCR Negative for C. difficile toxin by PCR Component Latest Ref Rng & Units 03/18/2023 CALPROTECTIN, FECAL QUANTITATIVE <50 ug/g 79 (H) CALPROTECTIN, FECAL INTERP Normal Borderline elevated. Re-evaluation in 4-6 weeks is recommended if clinically indicated. (A) Assessment IMPRESSION José Miguel Carreno JR is a 62 year old male with PMH of Crohn's disease, diagnosed in 1999's s/p ileocolonic resection, previously on infliximab, adalimumab, certolizumab, ustekinumab, vedolizumab, off label upadacitinib in 2020, currently, steroid-dependent and on rizankizumab since September 2021, recently hospitalized for 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 #1 Crohn's disease, ileocolonic, structuring, diagnosed in 1999 #2 Status post multiple intestinal resections, most recently ileocolonic resection in 2010 #3 Diarrhea, chronic #4 Bloating #5 Hypoalbuminemia #6 Chronic steroid use, complicated by osteopenia #7 Anemia, normocytic, iron deficiency Overall, my assessment is that patient's has had at least partial response since dose escalation of Skyrizi to every 4 weeks in December. Has only mild diarrhea and has been able to gain 18 lbs since. Albumin and hemoglobin are normal. Calprotectin has downtrended. However, he continued to be prednisone-dependent. We have been able to decrease prednisone down to 5 mg day (from 7 mg a day). Of note, patient continues to have mild hypokalemia. He is currently on 60 mEq of potassium supplementation. Regarding next steps in management, we will obtain repeat potassium level next week and adjust supplementation accordingly. Regarding Crohn's disease, objective assessment of response to therapy with a CTE to be performed in May with follow up visit after. At this time, patient does not have obstructive symptoms and patient would like to avoid surgical management as much as possible. PLAN - Continue current medications - Repeat potassium - CTE in 4 weeks. - Return visit after the above. At that time, speed of prednisone taper to be discussed. If ongoing severe inflammation, combination therapy with Entyvio can be considered. I spent 20 minutes in the virtual visit, with more than 50% of the total [id number] time of the visit in counseling / coordination of care. I have confirmed and edited as necessary, the PFSH and ROS obtained by others. I will communicate my recommendations and prescriptions to the patient's primary care provider. Unrelated to E/M, telemedicine, or virtual visit service provided within previous 7 days. No E/M service or procedure anticipated within next 24 hours. Jay Anand MD, PhD April 13, 2023 9:42 AM documented in this encounter [facility] [place] 04-09-2023 Evaluation note Encounter Date Diagnosis Assessment Notes Mar, Primary hypertension (ICD-10 - I10) [employer] Other 01-16-2024 Evaluation note* Encounter Date Diagnosis Assessment Notes Treatment Notes Treatment Clinical Notes Mar, Acute diffuse otitis externa of left ear (ICD-10 - H60.312) Keep ear clean and dry Avoid use of QTips. Avoid ear buds Mar, Acute non-recurrent maxillary sinusitis (ICD-10 - J01.00) Instructed to use Robitussin or Mucinex for cough, saline or Flonase NS for congestion, Tylenol for pain and fever. [employer] Other 12-11-2023 Evaluation note* Encounter Date Diagnosis Assessment Notes Treatment Notes Treatment Clinical Notes Feb, Inflamed skin tag (ICD-10 - L91.8) Removal required due to irritation and bleeding. One under each axilla. Feb, AK (actinic keratosi s) (ICD-10 - L57.0) Required removal due to premalignant characteristic. 1 right UE, 2 left UE, 1 right LE, 1 left LE Feb, Immunosuppressed status (ICD-10 - D84.9) BIologics administered on a monthly basis due to Crohn's disease. Disease status tolerable Feb, Crohn's disease of small intestine with intestinal obstruction (ICD-10 - K50.012) Continues w/ daily symptoms of pain and fatigue. No bleeding complications at this time. Weight remains stable [employer] Other 11-13-2023 History of Present illness Narrative* Damir Witt MD - 01/23/2023 10:13 AM EST Images from the original note were not included. [facility] Department of Cardi[facility] Medicine VIRTUAL VIDEO VISIT ESTABLISHED OUTPATIENT VISIT SERVICE DATE: 01/23/2023 Patient: José Miguel Carreno JR SERVICE TIME: 10:14 AM : 1960 This is a virtual video visit. It required patient-provider interaction for the medical decision making as documented below. José Miguel Carreno JR has consented to this video encounter. I have communicated my name and active licensure. The patient's identity and physical location wereverified at the time of this visit. Either the patient or their legal uniforms sales representative has been informed of the risks and benefits of -- and alternatives to -- treatment through a remote evaluation andconsents to proceed with the evaluation remotely. José Miguel Carreno JR is a 62 year old male seen for cardiomyopathy. CHIEF COMPLAINT Palpitations Cardiomyopathy HISTORY OF PRESENT ILLNESS José Miguel Carreno JR is a 62 year old White male with a PMHx of Crohn's (on skyrizi, budesonide, prednisone at home) s/p multiple abdominal surgeries including partial colectomy, RV dysplasia s/p defibrillator placement, and HTN. 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 Had received 2 previous EGDs at outside hospitals between 06/18 and 06/21 which showed no acute cause of bleed. After admission, pt had hgb of 8.7. There was a small pocket of pneumatosis on CT abd pelvis and active IBD. CORS evaluated in ED and found no acute need for surgery, a repeat lactate was lower than initial admission lactate >4. That evening (06/21), pt had syncopal episode and another bloody BM.Repeat CT abd pelvis showed no active bleed, CT brain/spine showed no acute process. Pt transferredto MICU where he received massive transfusion protocol receiving 17 units of blood. Diffuse bleeding seen on bedside scope in ICU, ruptured SMA pseudoaneurysm seen on angiogram. Embolized in ICU, pt intubated pre-procedure on 06/22, extubated 06/23. Hypovolemic/hemorraghic shock resolved. Transferred to [facility] on 06/24 for continued management post procedure Hemoglobin remained stable for 48hours and consistent non bloody BM. Patient was also started on zosyn for pneumatosis intestinalis and risk of bacterial translocation.Switched to augemtin on discharge (1 more dose as OP to complete 7 days course). He was also started on fluconazole for esophagitis. Will continue for total 14 days During hospital stay, BP medication held in the setting of hypotension 2/2 blood loss. SBP 130-140 in the hospital off medication. Will defer to PCP to resume them when/if needed Since he was discharged he has been feeling better. Because of severe GI bleeding he was dischargedoff BP meds. In the context of progressive HTN he restarted amlodipine, lisinopril and metoprolol. Of note his BP was super high in the context of high sodium diet and has normalized on low sodium diet + meds. He has been having almost daily episodes of feeling slow and sluggish associated with a HR of 140-160 on his watch. No ICD shocks. The episodes would last minutes. No specific triggers. He is able to perform physical activity without significant limitations. No other complaints. He is aware when his BP is high and has had some episodes of headaches. His cardiomyopathy was diagnosed in the context of VFIb arrest while he was having a severe CD exacerbation - Of note his K levels were very low until recently ( eg.g. 1.8 not unusual ) Currently on a low sodium diet - feeling better - if he has dietary transgression more episodes. Lisinopril 10 mg now and BP has been well controlled. Sleep never good. He has a hard time. Can interrupt. Heart operating better. Physically not a good shape. Nothing like a routine- pickleball- golfing. Trying to get a routine of phys Low 130/70mmHg 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 SINUS SURGERY HX FAMILY HISTORY Problem Relation Age of Onset No Known Problems Mother Heart Attack Father Hypertension Father Coronary Artery Disease Father s/p CABG Hypertension Brother Social History Tobacco Use Smoking status: Never Smokeless tobacco: Never Vaping Use Vaping Use: Never used Substance Use Topics Alcohol use: Not Currently Drug use: Never ALLERGIES Allergen Reactions Imuran [Azathioprin* Other: See Comments Joint stiffness Tylenol [Acetaminop* Other: See Comments Fever and clammy CURRENT MEDICATIONS esomeprazole (NEXIUM) 20 mg capsule Take 1 capsule by mouth once daily. predniSONE (DELTASONE) 1 mg tablet Take 1 tablet by mouth once daily. potassium chloride 20 mEq TbER Take 3 tablets by mouth once daily. predniSONE (DELTASONE) 5 mg tablet Take 1 tablet by mouth once daily. budesonide, enteric coated (ENTOCORT EC) 3 mg 24 hr capsule Take 2 capsules by mouth once daily. risankizumab-rzaa (SKYRIZI) 360 mg/2.4 mL (150 mg/mL) wearable injector Inject 360 mg subcutaneously every 8 weeks. metoprolol succinate ER (TOPROL XL) 25 mg 24 hr tablet Take 1 tablet by mouth two times a day. copper citrate 2 mg capsule Take 1 capsule by mouth once daily. lisinopril (ZESTRIL) 20 mg tablet Take 10 mg by mouth once daily. Cholecalciferol, Vitamin D3, 25 mcg (1,000 unit) cap Take by mouth q 24 HR. cyanocobalamin 1,000 mcg/mL TAKE DIRECTED ONCE A MONTH Injection for 30 ferrous bis-glycinate chelate (IRON BISGLYCINATE CHELATE) 29 mg iron cap Take 1 capsule by mouth once daily. budesonide (ORTIKOS) 6 mg capsule, extended release Take 6 mg by mouth every morning. REVIEW OF SYSTEMS: GENERAL: Negative for: Weight loss or gain, Fever or Chills, Weakness and Sleep difficulties. HEENT: Negative for: Headache, Impaired Vision, Glasses, Hearing Impairment, Ringing in Ears, Nosebleeds, Poor dental care, Bleeding Gums, Dentures NECK: Negative for: Swelling, Pain, Stiffness RESPIRATORY: Negative for: Cough, Blood in Sputum, Shortness of breath, Wheezing, Apnea GASTROINTESTINAL: Negative for: Trouble swallowing, Heartburn, Change in bowel habits, Blood in stool, Dark black stools MUSCULOSKELETAL: Negative for: Muscle or joint pain, Stiffness , Joint swelling NEUROLOGIC/PSYCHIATRIC: Negative for: Weakness, Paralysis, Numbness, Tingling, Tremor, Nervousness,Depressed mood, Memory loss SKIN: Negative for: Rashes, Itching HEMATOLOGICAL/LYMPHATIC: Negative for: Easy bruising , Easy bleeding ENDOCRINE: Negative for: Heat or cold intolerance, Excessive sweating, Frequent urination, Frequentthirst PALPITATION PHYSICAL EXAMINATION: VIDEO EXAM: (if completed, performed via video enabled technology) GENERAL: alert and appropriate, in no distress, well-hydrated, well nourished, and happy, smiling, interactive PATIENT ENTERED QUESTIONNAIRE SCORES PHQ-9 01/16/2023 PHQ-2 Score 0 PHQ-9 Score 2 PROMIS Global Health - (T-Scores - the mean of general population = 50. Five points is a clinicallymeaningful difference.) 12/06/2022 07/22/2022 Physical T-Score 47.7 44.9 Mental T-Score 53.3 - OUTSIDE TESTING ECHO 01/06/2020 Cardiac cath 01/07/2020 Normal coronaries Cardiac MRI 01/08/2020 SINGLE LEAD ICD EVALUATION PRESENTS FOR: appt with Dr. Witt PRESENTING EGM: /VS UNDERLYING RHYTHM: SR BATTERY STATUS: Estimated 100% remaining to BOS. AMERICO COUNTERS SINCE: 09/08/22 ATRIAL ARRHYTHMIAS: AT/AF burden 0%. VENTRICULAR ARRHYTHMIAS: There have been 6 ventricular detections since the last evaluation with available EGMs showing AT/AFL with RVR. LEAD MEASUREMENTS: Full testing done on 09/08/22, not tested today. The pacing outputs maintain safety margin. Review of the lead impedance trends are normal. OTHER DIAGNOSTICS: Total V pacing 0%. PROGRAMMING CHANGES MADE TODAY: none FOLLOW UP: patient would like care transferred to [facility]. Explained that he will need to establish with EP in order to transfer device care. Patient states understanding. Ana Dedrick, RN NOTE TO PROVIDERS: CARD Flowsheets contain detailed device programming and testing data. Paceart/Interrogation PDF can be found under CARDIAC DATA AND REPORT, Scanned Documents section. X3D Stack LV Function SAX LV epicardial contour without endocardial contour.(phase 20, slice 2) number of slices used to calculate syst. (phase 7: 10 slices) and diast. (phase 20: 13 slices) vol.of the LV cavum differ by more than one number of slices used to calculate syst. (phase 7: 10 slices) and diast. (phase 20: 14 slices) vol.of the LV myocard differ by more than one EDV: 184.09 ml ESV: 92.92 ml SV: 91.18 ml EF: 49.53 % CO: 5.74 l/min CI: 2.69 l/min/m HR: 63.0/min Ned Mass (Diast): 180.47 g Ned Mass (Syst): 136.81 g Phase Diastole: 20 Phase Systole: 7 EDV/H: 94.41 ml/m EDV/BSA: 86.36 ml/m ESV/H: 47.65 ml/m ESV/BSA: 43.59 ml/m SV/H: 46.76 ml/m SV/BSA: 42.77 ml/m Ned Mass/H (Diast): 92.55 g/m Ned Mass/BSA (Diast): 84.65 g/m Ned Mass/H (Syst): 70.16 g/m Ned Mass/BSA (Syst): 64.17 g/m Global Peak Wall Thickness (Diast): Slice 12 11.28 mm Wall thickening excluding papillaries: Off SAX3D Stack RV Function number of slices used to calculate syst. (phase 7: 11 slices) and diast. (phase 20: 13 slices) vol.of the RV cavum differ by more than one RVEDV: 230.07 ml RVESV: 139.71 ml RVSV: 90.36 ml RVEF: 39.27 % RVCO: 5.69 l/min RVCI: 2.67 l/min/m HR: 63.0/min Phase Diastole: 20 Phase Systole: 7 RVEDV/H: 117.99 ml/m RVEDV/BSA: 107.92 ml/m RVESV/H: 71.65 ml/m RVESV/BSA: 65.54 ml/m RVSV/H: 46.34 ml/m RVSV/BSA: 42.39 ml/m ASSESSMENT: NYHA Functional Class: I Stage: B heart failure Palpitations recurrent. ICD in place - Single Lead Cardiomyopathy- MRI reviewed with Dr Rae Leong. NO major criteria for ARVD. Mild biventricular dysfunction. Crohn's disease severe Recent admission because of severe GI bleeding requiring massive transfusion protocol- sp embolization Hypertension well controlled on current medications PLAN (Active Outpatient Problems): Continue current medications Increase physical activity as tolerated Follow up in 6 months with an echocardiogram. Damir Witt MD January 23, 2023 10:14 AM Answers submitted by the patient for this visit: Review of Systems Heart Failure (Submitted on 01/16/2023) Fever : No Night sweats: No Recent unintentional weight change: No Vision Disturbance: No Hearing Loss: No A cough: Yes Difficulty Breathing?: No Chest pain: No Leg Swelling: No Skipping or irregular heartbeats?: Yes Feel like passing out?: No Black tarry stools: No Nausea: No Diarrhea: Yes Swelling in your abdomen?: No Fill up quickly when you eat?: No Difficulty Urinating?: No Joint pain or stiffness: No Muscle aches: No A rash: No Dizziness: No Headaches: No documented [facility] [place] Miscellaneous Notes* Telephone Encounter - Kate Traylor - 01/19/2023 8:49 AM EST Plan 01/05/23 PLAN - Increase Skyrizi to every 4 weeks. - Taper prednisone by 0.5 mg every month. - Start esomeprazole 20 mg - CBC, CRP, CMP. - Potassium level in 1 month. - Repeat CBC in 2 months. - Return visit in 3 months with ESTHER - CTE in 6 months Lab orders pended please advise. Kate Traylor LPN documented in [facility] encounter[facility] [place] Miscellaneous Notes* Telephone Encounter - Kate Traylor - 01/04/2023 2:51 PM EDT Received call from [email or web address] pharmacy student Bronson Lama for clarification of dosing. Call transferred to pharmacist Derrick Noble. Clarified dosing of skyrizi 360 mg/2.4 mL OBI every 4 weeks. Pharmacist confirmed patient is approved thru 01/05/24 and inquired when the patients next dose is due and patient should call [phone] option 1 to report the date. Kate Traylor LPN * Telephone Encounter - Park Larson - 01/04/2023 1:36 PM EDT Incoming fax received today from [employer] informing Skyrizi maintenance assistance approved. Scanned into [email or web address]. Park Larson documented in this encounter[facility] [place] Miscellaneous Notes* Telephone Encounter - Eva Morrissey - 01/02/2023 5:04 PM EDT Outside EP (Disc-1) Lite-Box (New Admin Loaded w/Marcy) CVL Cardiac Consult- 12/30 Chest/Lateral- 12/30 MRI Cardiac- 12/30 Eva Morrissey documented in [facility] encounter[facility] [place] Miscellaneous Notes* Telephone Encounter - Kate Traylor - 12/27/2022 2:55 PM EDT Requested Prescriptions Pending Prescriptions Disp Refills predniSONE (DELTASONE) 1 mg tablet 60 tablet 0 Sig: Take 1 tablet by mouth once daily. potassium chloride 20 mEq TbER 90 tablet 2 Sig: Take 3 tablets by mouth once daily. Last visit: 09/12/22 Next visit: 01/05/23 Last Labs: 11/28/22 Kate Traylor LPN documented in this encounter[facility] [place] Miscellaneous Notes* Telephone Encounter - Kate Traylor - 12/27/2022 1:22 PM EDT Requested Prescriptions Pending Prescriptions Disp Refills predniSONE (DELTASONE) 5 mg tablet 30 tablet 2 Sig: Take 1 tablet by mouth once daily. budesonide, enteric coated (ENTOCORT EC) 3 mg 24 hr capsule 60 capsule 2 Sig: Take 2 capsules by mouth once daily. Last visit: 09/12/22 Next visit: 01/05/23 Last Labs: 11/28/22 Kate Traylor LPN documented in this encounter[facility] [place] Evaluation note* Encounter Date Diagnosis Assessment Notes Treatment Notes Treatment Clinical Notes Dec, Primary hypertension (ICD-10 - I10) This patient is instructed to consume a healthy, low-fat, low-salt diet. They are also encouraged to continue exercise to achieve/maintain a normal BMI. 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 f/u Cardiology Dec, Inflamed skin tag (ICD-10 - L91.8) Treated 5 skin tags around his neck: size 2-3mm each All were irritated and inflamed w/ hx of bleeding. Cryo/thaw x 2 each Dec, Verruca (ICD-10 - B07.9) Left leg w/ 5mm wart, treated w/ cryo/thaw x 2 [employer] Other [id number] Miscellaneous Notes* Telephone Encounter - Kate Traylor - 12/22/2022 11:22 AM EDT Received request from [facility] for prior auth of Skyrizi for every 4 week dosing. Seymour: [id number] Patient is in process of seeking patient assistance for every 4 week dosing with the hse coordinator after denial received thru insurance. Denied 11/24/22 peer to peer and [facility] Denial reason Quantity limit The health plan has a limit on the amount of this drug for one kit per 56 days. Patient has a valid prior auth with his insurance for every 8 weeks Dates valid 09/02/2022-09/02/23Case ID # [id number]. However the last script the Specialty pharmacy received was for every 4 weeks. New Rx needed for specialty pharmacy for every 8 weeks for patients medication to be dispensed while working thru patient assistance program for every 4 weeks. Specialty pharmacy will not dispense medication if prior auth and prescription on file do not match. Requested Prescriptions Pending Prescriptions Disp Refills risankizumab-rzaa (SKYRIZI) 360 mg/2.4 mL (150 mg/mL) wearable injector 2.4 mL 5 Sig: Inject 360 mg subcutaneously every 8 weeks. Please advise Kate Traylor LPN documented in this encounter[facility] [place]23 Miscellaneous Notes* Telephone Encounter - Judit Hummel RN - 12/12/2022 11:34 AM EDT Requested Prescriptions Pending Prescriptions Disp Refills potassium chloride 20 mEq TbER [Pharmacy Med Name: POTASSIUM CL ER 20 MEQ TABLET] 90 tablet 2 Sig: take 3 tablets by mouth once daily Last visit: 09/12/22 10/10/22: Potassium 4.7 Next Visit: 01/05/23 Judit Hummel RN documented in this encounterSelect [facility] [place]23 Miscellaneous Notes* Telephone Encounter - Charlotte Persaud RN - 11/25/2022 9:19 AM EDT Refill pended to Dr. Witt. Terence Persaud RN November 25, 2022 9:19 AM * Telephone Encounter - Ivelisse Scanlon RN - 11/24/2022 10:08 AM EDT Called patient and relayed message. He verbalized understanding. State she will need new prescription of metoprolol sent to his pharmacy. Ivelisse Scanlon RN * Telephone Encounter - Ivelisse Scanlon RN - 11/24/2022 10:08 AM EDT ----- Message from Damir Witt MD sent at 11/23/2022 4:06 PM EDT ----- Regarding: Follow up Zio Pach Results of Zio reviewed and showed Supraventricular Tachycardia. No evidence of ventricular tachycardia. Will like to increase metoprolol to 1 tablet in the morning 1/2 a tablet a night. Also will put an order for electrophysiology consult so he can meet and discuss further. Let me know if there are any questions. Thanks Damir documented in this encounterSelect [facility] [place]-2023 Miscellaneous Notes* Telephone Encounter - Hunter Blood RPh - 11/18/2022 4:25 PM EDT IBD Med Follow-Up Received call from [facility] for P2P for Skyrizi Q4 weeks. Provided verbal appeal; request is denied as not FDA approved dosing. Rep states she will send denial letter and there is option to then submit appeal letter to medical assistant internal medicine who can make final determination. Will await denial letter. Appeal letter already drafted and in Epic from 09/20/22. documented in this encounter[facility] [place]23 Miscellaneous Notes* Telephone Encounter - Nakia Nino RN - 11/17/2022 9:27 AM EDT According to Patient's records, no care has been provided at [facility]. Request has been forwarded to the PCP for f/u. Nakia Nino RN documented in this encounterSelect [facility] [place]-23-2023 Miscellaneous Notes* Telephone Encounter - Kate Traylor - 11/02/2022 12:00 PM EDT See telephone encounter 11/01/22 for updates. Kate Traylor LPN * Telephone Encounter - Judit Hummel RN - 11/01/2022 11:50 AM EDT Faxed updated clinicals for reconsideration for xifaxan to [phone] successfully. Judit Hummel RN * Telephone Encounter - Judit Hummel RN - 11/01/2022 11:34 AM EDT Called [employer] and spoke to rep Alexander. Was informed that Skyrizi OBI 360MG/2.4ML is approved and does not require a peer to peer. PREMA on file 09/02/2022-09/02/23 prema [id number]. Benjamin states that the xifaxan needs the updated clinical notes faxed to [phone] and request reconsideration. Judit Hummel RN documented in this encounterSelect [facility] [place]23 History of Present illness Narrative* Glory Kenyon, RT(R) - 10/31/2022 9:40 AM EDT Radiology Service Progress Note PATIENT NAME: José Miguel Carreno JR DATE OF SERVICE: October 31, 2022 TIME: 11:41 AM PATIENT IDENTITY VERIFICATION COMPLETED USING TWO (2) IDENTIFIERS: Name and Date of confirmedby patient verbally. FALL SCREENING: Has the patient had 2 falls in the last year or 1 fall with injury or currently using an Ambulatory Assistive Device (Walker, Cane, Wheelchair, Crutches, etc.)? No PATIENT GENDER DATA: Male PATIENT RELEVANT IMPLANT DATA REVIEWED: Not Applicable RADIOLOGY DEPARTMENT: General X-ray: Exam(s) Completed: GI/ Procedure(s): Small bowel series withbarium contrast PERIPHERAL IV DATA: Not applicable SIGNED BY: RT Nydia(R) October 31, 2022 11:41 AM documented in this encounterSelect [facility] [place]-18-2023 Miscellaneous Notes* Telephone Encounter - Charlotte Persaud RN - 10/28/2022 1:40 PM EDT Images from the original note were not included. Damir Witt MD Hvi J3-4 Opd Nurses 1 hour ago (12:13 PM) They should not interfere with the test. (Specially small bowel series) THanks Damir Vega message sent. Terence Persaud RN October 28, 2022 1:41 PM documented in this encounterSelect [facility] [place]-17-2023 Miscellaneous Notes* Telephone Encounter - Danay Beltran [facility] - 10/27/2022 12:25 PM EDT Appeal was approved for Constantine HARDEN(q 4 weeks). Plan Name: Joanna LLOYD reference number: [id number] Approval Dates: 09/02/2022-09/02/2023 However, s/he is required to use [facility] to fill this medication. I am not able to see if infusion has already taken place. Thank you ALLERGIES Allergen Reactions Imuran [Azathioprin* Other: See Comments Joint stiffness Tylenol [Acetaminop* Other: See Comments Fever and clammy Danay Beltran audra Clinical Pharmacist, Hepatology & HCV [facility] [place] [facility] P: ; F: Pool: P CC SPEC GROUP 3 documented in this encounterSelect [facility] [place]-15-2023 Miscellaneous Notes* Telephone Encounter - Kate Traylor - 10/25/2022 3:01 PM EDT Requested Prescriptions Pending Prescriptions Disp Refills rifAXIMin (XIFAXAN) 550 mg tablet 42 tablet 0 Sig: Take 1 tablet by mouth three times daily for 14 days. Kate Traylor LPN documented in this encounterSelect [facility] [place]2023 History of Present illness Narrative* Areli Nichole RT(R) - 10/21/2022 10:05 AM EDT Radiology Service Progress Note PATIENT NAME: José Miguel Carreno JR DATE OF SERVICE: October 21, 2022 TIME: 8:35 AM PATIENT IDENTITY VERIFICATION COMPLETED USING TWO (2) IDENTIFIERS: Name and Date of confirmedby patient verbally. FALL SCREENING: Has the patient had 2 falls in the last year or 1 fall with injury or currently using an Ambulatory Assistive Device (Walker, Cane, Wheelchair, Crutches, etc.)? No PATIENT GENDER DATA: Male PATIENT RELEVANT IMPLANT DATA REVIEWED: Not Applicable RADIOLOGY DEPARTMENT: Bone Density PERIPHERAL IV DATA: Not applicable SIGNED BY: RT Leanna(R) October 21, 2022 8:35 AM documented in this encounter[facility] Miscellaneous Notes* Telephone Encounter - Brendan Wayne RPh - 10/20/2022 8:43 AM EDT Prior authorization for pended medication(s) has been approved; however, due to insurance restrictions Rx must be filled at [facility] ([phone]) [facility]. Pended Orders ID Status Description Pended By When Reason [id number] Pended risankizumab-rzaa (SKYRIZI) 360 mg/2.4 mL (150 mg/mL) wearable injector-EVERY 4 WEEKS Brendan Wayne RPh 10/20/22 0916 If refill request approved, eRx will be sent to above Specialty Pharm[facility] for processing. Thank you. Brendan Wayne, PharmD Clinical Pharmacist, Biologics, Neurology, and Hepatology [facility] [place] [facility] ; Pool: P [facility] Pool #: [id number] documented in this encounterSelect [facility] [place]08-02-2023 Instructions* Patient Instructions* Damir Witt MD - 10/12/2022 12:12 PM EDT Plan 1- Stop amlodipine 2- Increase metoprolol 25mg to 1 tablet per day - You can feel low energy first 4-7 days and usually gets better day 10-14 3-Will review ICD check today 4- Zio Patch monitor for 14 days- record how are you feeling and mail it back. 5- Continue to monitor your blood pressure as you have been doing. 6- Keep a consistent exercise routine ( e.g. walking 3 times per week) 7-Follow up 3 months phone encounter 8- Blood work next time you have blood work done for your GI doctor. Damir Witt MD [phone] documented in this encounterSelect [facility] [place]08-02-[facility]23 History of Present illness Narrative* Damir Witt MD - 10/12/2022 10:45 AM EDT Images from the original note were not included. [facility] SECTION OF HEART FAILURE and CARDIAC TRANSPLANT MEDICINE OUTPATIENT VISIT DATE October 12, 2022 OUTPATIENT VISIT TYPE New Patient PRIMARY CARE PHYSICIAN: SHADE HORN [address] [place] [address] CHIEF COMPLAINT: Non-ischemic cardiomyopathy NURSING INTAKE (Patient s concerns and/or recent hospitalizations/ER visits): José Miguel Carreno JR is a 62 y/o male coming from [place], [place] to establish care. 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; Crohn's disease (since 1999) s/p multiple abdominal surgeries including partial colectomy; HLD; HTN; GERD; Syncope; Thrombocytopenia HF Nursing Assessment: Interim Hospitalizations and/or ER visits: 06/21-06/26/2022 (GIB) Chest Pain: no Skipping or irregular heartbeats: yes Shortness of breath at rest: no Shortness of breath with activity: no Cough: no Waking up in the middle of the night gasping for air: no Lightheadedness or dizziness: no Feeling like you are going to pass out: no Actually passing out: no Poor energy level: no Unintentional weight gain: no Unintentional weight loss: no Swelling in your legs,feet, abdomen: no Filling up quickly when you eat: no HISTORY OF PRESENT ILLNESS: José Miguel Carreno JR is a 62 year old White male with a PMHx of Crohn's (on skyrizi, budesonide, prednisone at home) s/p multiple abdominal surgeries including partial colectomy, RV dysplasia s/p defibrillator placement, and HTN. 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 Had received 2 previous EGDs at outside hospitals between 06/18 and 06/21 which showed no acute cause of bleed. After admission, pt had hgb of 8.7. There was a small pocket of pneumatosis on CT abd pelvis and active IBD. CORS evaluated in ED and found no acute need for surgery, a repeat lactate was lower than initial admission lactate >4. That evening (06/21), pt had syncopal episode and another bloody BM.Repeat CT abd pelvis showed no active bleed, CT brain/spine showed no acute process. Pt transferredto MICU where he received massive transfusion protocol receiving 17 units of blood. Diffuse bleeding seen on bedside scope in ICU, ruptured SMA pseudoaneurysm seen on angiogram. Embolized in ICU, pt intubated pre-procedure on 06/22, extubated 06/23. Hypovolemic/hemorraghic shock resolved. Transferred to [facility] on 06/24 for continued management post procedure Hemoglobin remained stable for 48hours and consistent non bloody BM. Patient was also started on zosyn for pneumatosis intestinalis and risk of bacterial translocation.Switched to augemtin on discharge (1 more dose as OP to complete 7 days course). He was also started on fluconazole for esophagitis. Will continue for total 14 days During hospital stay, BP medication held in the setting of hypotension 2/2 blood loss. SBP 130-140 in the hospital off medication. Will defer to PCP to resume them when/if needed Since he was discharged he has been feeling better. Because of severe GI bleeding he was dischargedoff BP meds. In the context of progressive HTN he restarted amlodipine, lisinopril and metoprolol. Of note his BP was super high in the context of high sodium diet and has normalized on low sodium diet + meds. He has been having almost daily episodes of feeling slow and sluggish associated with a HR of 140-160 on his watch. No ICD shocks. The episodes would last minutes. No specific triggers. He is able to perform physical activity without significant limitations. No other complaints. He is aware when his BP is high and has had some episodes of headaches. His cardiomyopathy was diagnosed in the context of VFIb arrest while he was having a severe CD exacerbation - Of note his K levels were very low until recently ( eg.g. 1.8 not unusual ) PAST MEDICAL HISTORY Diagnosis Date Anemia Cardiac arrest (HCC) Congestive heart failure (HCC) Crohn disease (HCC) Crohn's disease (HCC) Diabetes (HCC) Dyslipidemia GERD (gastroesophageal reflux disease) GI bleed Hypertension Right ventricular dysplasia Syncope Thrombocytopenia (HCC) PAST SURGICAL HISTORY Procedure Laterality Date BACK SURGERY HX L5 BOWEL RESECTION HX 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 SINUS SURGERY HX SOCIAL HISTORY Social History Tobacco Use Smoking status: Never Smokeless tobacco: Never Vaping Use Vaping Use: Never used Substance Use Topics Alcohol use: Not Currently Drug use: Never FAMILY HISTORY Problem Relation Age of Onset No Known Problems Mother Heart Attack Father Hypertension Father Coronary Artery Disease Father s/p CABG Hypertension Brother Father high cholesterol and smoker ( ALLERGIES: ALLERGIES Allergen Reactions Imuran [Azathioprin* Other: See Comments Joint stiffness Tylenol [Acetaminop* Other: See Comments Fever and clammy CURRENT MEDICATIONS: amLODIPine (NORVASC) 2.5 mg tablet Take 2.5 mg by mouth once daily. predniSONE (DELTASONE) 1 mg tablet Take 1 tablet by mouth once daily. pantoprazole DR (PROTONIX) 40 mg tablet Take 1 tablet by mouth DAILY (6 AM). risankizumab-rzaa (SKYRIZI) 360 mg/2.4 mL (150 mg/mL) wearable injector Inject 360 mg subcutaneously every 4 weeks. lisinopril (ZESTRIL) 20 mg tablet Take 20 mg by mouth once daily. potassium chloride 20 mEq TbER Take 3 tablets by mouth once daily. Cholecalciferol, Vitamin D3, 25 mcg (1,000 unit) cap Take by mouth q 24 HR. cyanocobalamin 1,000 mcg/mL TAKE DIRECTED ONCE A MONTH Injection for 30 metoprolol succinate ER (TOPROL XL) 25 mg 24 hr tablet Take 12.5 mg by mouth once daily. ferrous bis-glycinate chelate (IRON BISGLYCINATE CHELATE) 29 mg iron cap Take 1 capsule by mouth once daily. budesonide (ORTIKOS) 6 mg capsule, extended release Take 6 mg by mouth every morning. predniSONE (DELTASONE) 10 mg tablet Take 10 mg by mouth once daily. REVIEW OF SYSTEMS: CONSTITUTION: Negative for: Fever, Night sweats and Recent weight change HEENT: Negative for: Hearing loss RESPIRATORY: Negative for: Cough and Difficulty breathing GASTROINTESTINAL: Positive for: Diarrhea Negative for: Melena, Nausea, Abdominal distention and Early satiety MUSCULOSKELETAL: Negative for: Arthralgias and Myalgias NEUROLOGICAL: Negative for: Headaches and Dizziness SKIN: Negative for: Rash EYES: Negative for: Visual disturbance CARDIOVASCULAR: Positive for: Arrhythmia Negative for: Chest pain, Leg swelling and Pre-syncope GENITOURINARY: Negative for: Difficulty urinating PATIENT ENTERED DATA: KCCQ-12 Scores 10/05/2022 Physical Limitation Score 100 (Class I Heart Failure ) Symptom Frequency Score 85.42 Quality of Life Score 62.5 (Class II Heart Failure ) Social Limitation Score 91.67 (Class I Heart Failure) Overall Summary Score 84.9 (Class II Heart Failure ) PHQ-9 10/05/2022 Score 2 PROMIS Global Health - (T-Scores - the mean of general population = 50. Five points is a clinicallymeaningful difference.) 07/22/2022 Physical T-Score 44.9 PHYSICAL EXAMINATION: BP 127/83 Pulse 84 Ht 195.6 cm (6' 5 ) Wt 93.3 kg (205 lb 9.6 oz) SpO2 99% BMI 24.38 kg/m General: Well appearing, in no acute distress. Skin: No clubbing, no cyanosis. Eyes: Extra ocular movements intact Oropharynx: Teeth in good repair. Neck: No jugular venous distention, no carotid bruits, carotids have a normal upstroke, no palpablethyromegaly. Lungs: Clear to auscultation bilaterally, no wheezing or rhonchi. Heart: Regular rhythm, PMI not displaced, S1, S2 normal, no S3, no S4, no heaves, no rub and no murmur. Abdomen: Soft, nontender, bowel sounds normal, no palpable organomegaly, no bruits. Extremities: No peripheral edema . Grade 2/4 distal pulses bilaterally. Neuro: Oriented to person, place and time, alert, cooperative, gait coordinated. CARDIOVASCULAR MEDICINE TESTING: I have personally reviewed the Device Check. Last EKG Result Conclusion ECG COMPLETE Collected: 06/21/2022 7:55 PM (Final result) Impression: SINUS TACHYCARDIA WITH PREMATURE ATRIAL COMPLEXES OTHERWISE NORMAL ECG Confirmed by ANASTASIA SERRATO MD ([id number]) on 06/22/2022 10:44:14 AM OUTSIDE TESTING ECHO 01/06/2020 Cardiac cath 01/07/2020 Normal coronaries Cardiac MRI 01/08/2020 SINGLE LEAD ICD EVALUATION PRESENTS FOR: appt with Dr. Witt PRESENTING EGM: /VS UNDERLYING RHYTHM: SR BATTERY STATUS: Estimated 100% remaining to AMERICO, HODA. COUNTERS SINCE: 09/08/22 ATRIAL ARRHYTHMIAS: AT/AF burden 0%. VENTRICULAR ARRHYTHMIAS: There have been 6 ventricular detections since the last evaluation with available EGMs showing AT/AFL with RVR. LEAD MEASUREMENTS: Full testing done on 09/08/22, not tested today. The pacing outputs maintain safety margin. Review of the lead impedance trends are normal. OTHER DIAGNOSTICS: Total V pacing 0%. PROGRAMMING CHANGES MADE TODAY: none FOLLOW UP: patient would like care transferred to [facility]. Explained that he will need to establish with EP in order to transfer device care. Patient states understanding. Ana Tse RN NOTE TO PROVIDERS: CARD Flowsheets contain detailed device programming and testing data. Paceart/Interrogation PDF can be found under CARDIAC DATA AND REPORT, Scanned Documents section. IMPRESSION: NYHA Functional Class: I Stage: B heart failure Palpitations recurrent. ICD in place - Single Lead Cardiomyopathy Crohn's disease severe Recent admission because of severe GI bleeding requiring massive transfusion protocol- sp embolization Hypertension well controlled on current medications. PLAN AND RECOMMENDATIONS: 1- Stop amlodipine 2- Increase metoprolol 25mg to 1 tablet per day - You can feel low energy first 4-7 days and usually gets better day 10-14 3-Will review ICD check today 4- Zio Patch monitor for 14 days- record how are you feeling and mail it back. 5- Continue to monitor your blood pressure as you have been doing. 6- Keep a consistent exercise routine ( e.g. walking 3 times per week) 7-Follow up 3 months phone encounter 8- Blood work next time you have blood work done for your GI doctor. I personally interviewed, confirmed and edited the above information as obtained by others Damir Witt MD [facility] Section Of Heart Failure and Cardiac Transplant Medicine [facility] Desk [address] [place] [address] documented in this encounterSelect Medical [facility] [place]07-31-2023 History of Present illness Narrative* Kate Traylor - 10/10/2022 2:14 PM EDT Consult for 2nd read order pended for 02/16/[address] ABDOMEN PELVIS ENTEROGRAPHY WITH IV CONTRAST. Kate Traylor LPN documented in this encounterSelect Medical [facility] [place]07-31-2023 History of Present illness Narrative* Juan Mccrary MD - 10/10/2022 10:00 AM EDT Images from the original note were not included. COLORECTAL SURGERY NEW VIRTUAL VISIT I have communicated my name and active licensure. The patient's identity and physical location wereverified at the time of this visit. Either the patient or their legal uniforms sales representative has been informed of the risks and benefits of -- and alternatives to -- treatment through a remote evaluation andconsents to proceed with the evaluation remotely. I had a virtual visit with Mr. Carreno today. His local doctors have given his a diagnosis of Crohn's. 07/27/2022 Dr. 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 Stokes. He has had multiple intestinal resections totaling 103 cm of small bowel resected. Most recent surgery in 2010. He had previously been on infliximab and was maintained on adalimumab until 2017 when he had loss of response despite dose escalation to weekly. In 2017, he was started on Stelara with partial improvement of symptoms and found to have low trough levels, dose escalated to every 4 weeks without further improvement. In 2018, started on Entyvio trough levels found to be subtherapeutic and despite dose escalation to up to q3 week dosing and MTX c ontinue to have active disease. In 2019, Stelara was added to Entyvio however persistent active Crohn's disease. In 2020, started on on certolizumab plus MTX without improvement. In 2020, started on off label Rinvoq 45 mg, then 30 mg with only mild improvement of clinical symptoms and no objective evidence of response radiographically. In 2021, was then started on Skyrizi in September which she is still currently on. Has been steroid-dependent for a number of years and is on budesonide 6 mg and prednisone 7.5 mg In June 2022 developed melena and found to have anemia. He was seen at OSH and underwent EGD without identification of source of bleeding. CT abdomen demonstrating active Crohn's disease. Was then transferred to [facility]. During his hospitalization, he had an acute drop in hemoglobin with hemodynamic instability and transferred to the ICU. EGD demonstrated severe severe bleeding without clear source.massive transfusion protocol 17 units of RBCs. He underwent CTA with embolization/coiling of SMA pseudoaneurysm. On discharge, hemoglobin at 9.8. Currently, stable from a GI bleeding standpoint, no recurrent melena. Is on prednisone 7.5 mg, budesonide 6 mg, Skirizi - Intermittent diarrhea, 3-4 BM mild intermittent abdominal pain, avoiding highfiber. Chronic hypoalbuminemia. Diagnosis Crohn's Disease: Date of diagnosis (year): 1999 Phenotype Location affected: ileum colon Behavior: fibrostenoticPerianal disease: no Prior Medications/Reason for Switch Surgery: Yes: Small Bowel Resection, Partial Colectomy Thiopurines: Yes, reason for switch: ineffective Methotrexate: Yes Biologics: Yes - infliximab, reason for switch: ineffective adalimumab, reason for switch: ineffective certolizumab pegol, reason for switch: ineffective vedolizumab, reason for switch: ineffective ustekinumab, reason for switch: ineffective Small molecules: Yes - Other: upadacitinib, reason for switch: ineffective Current Medications Systemic steroids Budesonide Other: Rizankizumab Prior Complications and Extraintestinal Manifestations Clostridium difficile: no Thrombosis: no Ocular (Uveitis, Episcleritis): no Dermatologic (Pyoderma gangrenosum, Erythema nodosum): no Arthropathy/Arthralgia: no Oral ulcers: no Primary Sclerosing Cholangitis: no Labs TB Status: negative Hepatitis B Status: Unknown TPMT: Unknown Current Clinical Symptoms # of bowel movements daily: 4 # of liquid stools daily: 1 Consistency: mushy Bloody bowel movements: no Urgency: no Abdominal pain: no Abdominal distention: no Nausea/vomiting: no Weight loss over last 3 months: yes: lost 15lbs General well-being: slightly below average Patient-Entered Data SIBDQ Scores 07/22/2022 Bowel Score 5 Emotional Score 4.67 Systemic Score 3.5 Social Score 6 Total Score 4.8 PRO-2 Crohn's Score 07/22/2022 Crohn's Disease Score Incomplete PROMIS Global Health - (T-Scores - the mean of general population = 50. Five points is a clinicallymeaningful difference.) 07/22/2022 Physical T-Score 44.9 PROMIS Global Health Scale 07/22/2022 Physical Health Percentile 31 % PAST SURGICAL HISTORY PAST SURGICAL HISTORY Procedure Laterality Date BOWEL RESECTION HX PAST MEDICAL HISTORY PAST MEDICAL HISTORY Diagnosis Date Crohn disease (HCC) CURRENT MEDICATIONS Current Outpatient Medications Medication Sig Dispense Refill budesonide (ORTIKOS) 6 mg capsule, extended release Take 6 mg by mouth every morning. predniSONE (DELTASONE) 10 mg tablet Take 10 mg by mouth once daily. risankizumab-rzaa (SKYRIZI) 150 mg/mL injection Inject [address] (PROTONIX) 40 mg tablet Take 1 tablet by mouth DAILY (6 AM). 30 tablet 0 No current facility-administered medications for this visit. Imuran [Azathioprine] and Tylenol [Acetaminophen] Recent Labs: CBC: WBC (k/uL) Date Value 06/26/2022 12.89 (H) 06/26/2022 9.23 Hematocrit (%) Date Value 06/26/2022 29.6 (L) MCV (fL) Date Value 06/26/2022 93.4 Platelet Count (k/uL) Date Value 06/26/2022 155 Lymphocytes % (%) Date Value 06/21/2022 10.0 Hepatic Function Panel: Albumin (g/dL) Date Value 06/26/2022 2.6 (L) Bilirubin, Total (mg/dL) Date Value 06/22/2022 1.6 (H) Bilirubin, Conjugated (mg/dL) Date Value 06/22/2022 0.6 (H) Alkaline Phosphatase (U/L) Date Value 06/22/2022 36 (L) AST (U/L) Date Value 06/22/2022 24 ALT (U/L) Date Value 06/22/2022 14 Protein, Total (g/dL) Date Value 06/22/2022 3.2 (L) Certolizumab TDM Levels 04/17/20 <1.0 Antibody Negative SOCIAL HISTORY Social History Tobacco Use Smoking status: Never Smokeless tobacco: Never Substance Use Topics Alcohol use: Never Vedolizumab TDM levels 01/28/20 21.8 Antibody Negative PERSONAL HABITS: Tobacco: No Alcohol: No EGD 06/22/22 Impression: No gross lesions in the entire esophagus. Red blood in the entire stomach. No gross lesions in the entire stomach. Blood in the entire examined duodenum. Jejunal blood. No specimens collected. XR ABD 1V SUPINE 06/22/22 IMPRESSION: NG/OG tube tip in the gastric body with side port below the diaphragm. Sequela of recent angiogram/embolization in the left lower quadrant. Excreted contrast within the left urinary tract. No dilated loops of bowel. IR ANGIOGRAPHY/VENOGRAPHY CONSULT 06/22/22 IMPRESSION: ANGIOGRAPHY DEMONSTRATED LARGE PSEUDOANEURYSM WITH RUPTURE AND ACTIVE EXTRAVASATION RESPONDED TO A PROXIMAL SMALL BOWEL LOOP OF BOWEL. GIVEN THE CONCERN ABOUT COAGULOPATHY AND VASOCONSTRICTION, THIS WAS EMBOLIZED TO STASIS WITH GLUE WITH HEMOSTASIS ACHIEVED. CTA ABD/PEL W IVCON 06/21/22 IMPRESSION: 1. No evidence of active GI bleed. 2. Overall stable appearance of the abdomen/pelvis compared to prior CT scan on same date with findings consistent with pneumatosis intestinalis of the cecum and ascending colon and trace pneumoperitoneum. CT ABD/PEL W IVCON 06/21/22 IMPRESSION: Multifocal active inflammatory small bowel disease with luminal narrowing and stricturing. Inflammatory changes most prominent along lower midline abdominal bowel loops without a focal collection. Colonic pneumatosis with a few punctate foci of pneumoperitoneum. CT ABD/PEL ENTEROGRAPHY W IV CON 02/16/22 Impression: 1. Overall very similar appearance of the discontinuous strictures with inflammation related to Crohn's disease compared to 09/03/2021 exam but with new active inflammation within a previously seen normal segment, however. Upstream dilatation of bowel, consistent with mild obstruction. 2. 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 No drainable abscess. 3. Stable short segment jejunal strictures with mild upstream dilation. 4. Benign pneumatosis has not appreciably changed. CT ABD/PEL ENTEROGRAPHY W IV CON 09/03/21 Impression: 1. Overall no significant change in extent and severity of Crohn's disease involving the distal ileum, with multiple discontinuous strictures with active inflammation. 2. No significant change in previously seen penetrating disease with a small polyp or mass and multiple enteroenteric fistulas. No abscess or drainable fluid collection. 3. Similar upstream obstruction of the ileum proximal to the longest segment of disease. 4. Stable adjacent short segment jejunal structures. 5. Increased pneumatosis involving the proximal colon from prior exams. However, given that this has been present since 2018, this is likely benign. CT ABD/PEL ENTEROGRAPHY W IV CON 02/02/21 Impression: 1. Overall similar extent and severity of Crohn's disease compared to 08/31/2020. Long segment of distal ileum with multiple discontiguous strictures with superimposed active inflammation. 2. No significant change in penetrating disease with a small inflammatory mass and small enteroenteric fistulas. No abscess or drainable fluid collection. 3. Similar degree of obstruction in the ileum just proximal to the long segment of disease which measures 5 cm in diameter. Slight interval increase in degree of obstruction in the jejunum of an intervening segment between strictures that measures 3.[address] ABD/PEL ENTEROGRAPHY W IV CON 08/31/20 Impression: 1. Redemonstration of findings of active inflammatory Crohn's disease involving a long segment of the distal ileum and short segments in the jejunum. There is increased intramural fat deposition consistent with chronic formation, though the degree of active inflammation appears similar. 2. Similar degree of stenosis with stable mild dilatation of the ileum proximal to the long segment. 3. There appears be a small interloop fistula between two segments of the ileal inflammation. This fistula is likely new since the prior CT. There is additional thickening extending to the proximal cecum, difficult to exclude additional fistula to the site. 4. Pneumatosis within the colon. This appears new since the CT of 01/25/2020 but is decreased since 10/23/2018. There is increased but still tiny locules of free intraperitoneal air within the left upper quadrant. No abscess or fluid collection. Given this pneumatosis has been seen dating back to at least 2018, this is likely benign, though correlation with patient's symptoms would be helpful. EGD 01/28/20 Impression - Duodenal mucosal with possible very mild lymphangiectasia. - Normal stomach. - Normal esophagus. - Biopsies performed in the gastric antrum and in the gastric body. PATHOLOGY 01/28/20 FINAL DIAGNOSIS A. Duodenum, second part, endoscopic biopsy: Normal duodenal mucosa. B. Stomach, antrum, endoscopic biopsy: Fundic-type mucosa and antral-fundic transition zone mucosa with mild chronic inflammation. No Helicobacter pylori by immunostain. C. Stomach, body, endoscopic biopsy: Fundic-type mucosa with mild chronic inflammation. No Helicobacter pylori by immunostain. ROS EyesNegative for vision changes, diplopia or epiphora. Ears, Mouth, nose, throat:No problems Cardiovascular: No Problems Respiratory: Negative for cough, wheezing and shortness of breath Gastrointestinal : Please see HPI Genitourinary: Negative Musuloskeletal: Normal Integumentary: no rashes, lesions, or jaundice Neurological: No history of neurologic problems Endocrine: Negative for cold or heat intolerance, polyuria, polydipsia and goiter. Psychiatric: Cooperative and agreeable Allergic/ Immunologic: Negative All others negative FAMILY HISTORY Has anyone in your family (grandparents, parents, brothers, sisters, aunts, or uncles) had: Liver problems: No Colitis: No Colon cancer:Yes, maternal grandmother Other cancers: bone cancer, breast cancer mother FAMILY HISTORY No family history on file. PHYSICAL EXAMINATION General Appearance: alert, oriented x 3, pleasant and in no acute distress Eyes: No icterus or conjunctival pallor.. Oropharynx: Lips, tongue, and oral mucosa normal. There is no thrush or oral ulcers. Lungs: breathing comfortably in room air. Heart: regular rate and rhythm Abdomen: Not distended. Normal bowel sounds. Soft and non-tender. No masses or organomegaly. Extremities: no cyanosis or edema. Skin: no rashes or lesions Lymph: No cervical, axillary, supraclavicular, or adenopathy. Assessment IMPRESSION José Miguel Crareno JR is a 62 year old male with PMH of Crohn's disease, diagnosed in 1999's s/p ileocolonic resection, previously on infliximab, adalimumab, certolizumab, ustekinumab, vedolizumab, off labelupadacitinib in 2020, currently, steroid-dependent and on rizankizumab since September 2021, recently hos pitalized for rupture SMA pseudoaneurysm with massive GI bleeding, s/p coiling and embolization, coming in today to establish care in the IBD clinic at [facility] #1 Crohn's disease, ileocolonic, structuring, diagnosed in 1999 #2 Status post multiple intestinal resections, most recently ileocolonic resection in 2010 #3 Diarrhea, chronic #4 Bloating #5 Hypoalbuminemia #6 Chronic steroid use, complicated by osteopenia Overall, my assessment is that patient has active Crohn's disease given diarrhea and radiographic evidence CT abdomen findings of multifocal active enteritis with luminal narrowing and stricturing. Patient has failed extensive number of medical therapies and is steroid-dependent at this point. He is currently on risankizumab since September 2021, budesonide 6 mg and prednisone 7.5 mg. Of note, he has chronic hypoalbuminemia, likely secondary to active enteritis. He had most of his IBD care at the [facility] in [facility] and is now transferring care to [facility]. As outlined below, he has had a recent hospitalization for massive GI bleed and found to have an SMA pseudoaneurysm s/p embolization. Regarding next steps, we recommend restaging at this time with CT enterography and colonoscopy. We discussed importance of optimizing his biologic medical therapy in order to decrease dosing of systemic steroids. A consideration would be to dose escalation to Skyrizi and if this approach were to fail, to add Entyvio. Given patient's stricturing disease, he is certainly at risk for superimposed SIBO which could explain his intermittent bloating and diarrhea. We will refer patient to our colorectal surgery colleagues to discuss potential role of surgery if he were to fail despite medical therapy optimization. A dietitian consult is recommended to discuss low fiber diet and to optimize diet inthe setting of hypoalbuminemia. Regarding health maintenance, patient will be referred to our IBD pharmacist for further discussion. His most recent QuantiFERON in 2021 was negative and has had a recent bone scan, which did not demonstrate evidence of osteoporosis despite chronic steroid use. PLAN - Restage with CTE and colonoscopy - Breath test for SIBO rule out - Referrals to PharmD and IBD dietitian - Referral to CRS to discuss possible surgical options given refractory disease - Return visit after the above. A prednisone taper plan will be discussed at that time. Given his chronic use an dependence, could decrease by 1 mg ever 2 weeks. #7 SMA pseudoneurysm with massive GI bleeding s/p embolization and coiling in June 2022 #8 Severe GI bleeding 2/2 to #1, resolved #9 Anemia, improved Overall, assessment is that gastrointestinal bleeding has resolved given absence of melena and stability of hemoglobin. I recommend initiation of oral iron supplementation. PLAN - Start Vitron C - Repeat hemoglobin in 1 month Physician Global Assessment of Disease Activity: moderate disease Jay Anand MD, PhD July 27, 2022 4:00 PM 09/08/22 Colonoscopy, Dr. Isa Anand Findings: Patchy inflammation, moderate in severity and [...] The entire examined colon is normal. Biopsied. FINAL DIAGNOSIS A. Ileum, biopsy: - Moderately active enteritis; no granulomas or dysplasia. B. Ascending colon, biopsy: - Colonic mucosa with no significant pathologic abnormality. C. Transverse colon, biopsy: - Colonic mucosa with no significant pathologic abnormality. D. Descending colon, biopsy: - Colonic mucosa with no significant pathologic abnormality. E. Rectosigmoid colon, biopsy: - Colonic mucosa with no significant pathologic abnormality. 09/26/22 CTE GI Tract: * Ileocecectomy with midline lower abdominal ileocolic anastomosis. * Pneumatosis involving the ascending colon has overall decreased since the prior. Small bowel: Multifocal active inflammatory small bowel disease with areas of stricturing and luminal narrowing are overall not significantly changed as compared to prior CT 06/21/2022. For reference: * Approximately 10 cm segment of neoterminal ileum with wall thickening, mural hyperenhancement, and luminal narrowing with upstream dilation up to 4.4 cm compatible with stricture (602:22-25). * Approximately 10 cm segment of distal ileum with wall thickening, mural hyperenhancement, in the luminal narrowing without upstream dilation up to 3.6 cm compatible with stricture (602:26-29). * Approximate 5 cm segment proximal-mid small bowel along the left lateral abdomen with wall thickening and luminal narrowing (602:37). Associated submucosal fat deposition likely reflects chronic inflammatory change. Colon and Rectum: No mural hyperenhancement or wall thickening. Strictures: None Fistulae/Sinus tracts: None Abscess: None Ancillary Findings related to Crohn's : None. Abdomen: Liver: Few left lobe cysts, the largest up to 1.5 cm at the dome (2:18). Biliary: No bile duct dilation. Gallbladder is unremarkable. Spleen: No mass. No splenomegaly. Pancreas: No mass or duct dilation. Adrenals: No mass. Kidneys: Benign renal cysts. Lymph nodes: No abdominal or pelvic lymphadenopathy. Mesentery/Peritoneum: No ascites or mass. Vasculature: The celiac axis and SMA are patent. The portal vein and branches, splenic vein, SMV, and hepatic veins are patent. No aortic or iliac artery aneurysm. Pelvis: No mass, ascites or fluid collection. Bones/Soft Tissues: Mild retrolisthesis of L5 on S1, unchanged. Lung Bases: Partially visualized cardiac leads. Eloise Stokes M.D. - 02/16/2022 1:00 PM CITY COLLECTOR SUBJECTIVE CHIEF COMPLAINT/REASON FOR VISIT 1. Recurrent small intestinal Crohn disease This 61-year-old man has had Crohn disease since 1999 with multiple previous ileal resections totaling 103 cm of ileum resected with ileocolonic anastomosis. He has recurrent Crohn disease involving a 50 cm long segment of the distal ileum with skip areas and with fistulas within the area. He also has two short jejunal strictures with mild dilatation of the small bowel proximal to the strictures.Past treatments have included adalimumab, ustekinumab, vedolizumab, certolizumab pegol, azathioprine, budesonide, and upadacitiniab. He started risankizumab (Skyrizi) in September and he has continued with dosing each eight weeks. He is due for his next dose March 26. He has improved since starting Skyrizi with about a 10 lb weight gain and improvement in his energy level and more formed bowel movements. He continues to have some abdominal cramping discomfort. He is now off prednisone, for the past five days, after being on prednisone for two years, he has reduce the dose of 40 mg daily this summer with reductions of 1 mg per week in recent months. He has noted increased abdominal discomfortand joint pains and malaise and tachycardia with each drop in dose of prednisone. He continues on budesonide 6 mg daily. His blood pressure is in the range of 130/80 and his pulse runs in the 80s. His last colonoscopy was in 2018 and the colon appeared normal. He underwent CT enterography earlier today and there continues to be a 50 cm long segment of distalileum with involvement of Crohn disease with skip areas although there is more confluence of activedisease then on the previous study here from late August,. There are also the two inflammatory strictures in the jejunum that are not high-grade strictures. His laboratory studies are satisfactory. CURRENT MEDICATIONS Current Outpatient Medications Medication Sig amLODIPine (NORVASC) 2.5 mg tablet 2.5 mg daily. budesonide (ENTOCORT EC) 3 mg 24 hr capsule take 3 capsules by mouth every morning (Patient taking differently: 6 mg daily.) cholecalciferol (VITAMIN D3) 25 mcg (1,000 Unit) capsule cyanocobalamin (VITAMIN B12) 1,000 mcg/mL injection TAKE DIRECTED ONCE A MONTH econazole nitrate (SPECTAZOLE) 1 % cream apply to affected area once daily for 15 fluticasone (FLONASE) 50 mcg/actuation nasal spray Administer 2 sprays into each nostril daily. folic acid 1 mg tablet Take 1 tablet (1 mg total) by mouth daily. (Patient not taking: Reported on 02/11/2022) lisinopril (PRINIVIL,ZESTRIL) 20 mg tablet Take 20 mg by mouth daily. magnesium chloride (MAG 64 ORAL) 500 mg daily. metoprolol succinate (TOPROL-XL) 25 mg 24 hr tablet Take 12.5 mg by mouth daily. metoprolol tartrate (LOPRESSOR) 25 mg tablet Take 12.5 mg by mouth daily. minocycline (MINOCIN,DYNACIN) 100 mg capsule Take 100 mg by mouth. multivitamin tablet Take 1 tablet by mouth daily. mycophenolate (CELLCEPT) 500 mg tablet Take 1 tablet (500 mg total) by mouth 2 (two) times a day. (Patient not taking: Reported on 02/11/2022) potassium chloride (KLOR-CON M/KDUR) 20 mEq ER tablet Take 40 mEq by mouth daily. predniSONE (DELTASONE) 1 mg tablet 11 mg daily taper 1 mg x 14 days predniSONE (DELTASONE) 1 mg tablet Take 4 tablets (4 mg total) by mouth daily. Reduce the dose by one tablet per day each week (Patient not taking: Reported on 02/11/2022) predniSONE (DELTASONE) 10 mg tablet take 3 tablets by mouth once daily (Patient not taking: Reported on 02/11/2022) predniSONE (DELTASONE) 5 mg tablet Take 1 tablet (5 mg total) by mouth daily. Take by mouth as directed (Patient not taking: Reported on 02/11/2022) ALLERGIES/CONTRAINDICATIONS Allergies Allergen Reactions Azathioprine Other (see comments) Joint swelling/stiffness, Imuran SOCIAL HISTORY He is retired. He and his plan to spend most of the winter months in the [facility]. Nonsmoker.His participated in the meeting via telephone. REVIEW OF SYSTEMS General: Satisfactory general health. The review is otherwise noncontributory. OBJECTIVE PHYSICAL EXAMINATION General: Pleasant, articulate, no distress, his hydration is normal. Eyes: No inflammatory changes Pupils equal and round. Neck: There was no cervical or axillary lymphadenopathy. Respiratory: Clear to auscultation bilaterally. Cardiovascular: Regular rhythm. Abdomen: Normal bowel sounds no incisional hernias. No focal tenderness Rectal: Deferred no perianal symptoms Extremities: No edema. Skin: No jaundice, spiders or rashes. Normal turgor. Musculoskeletal: Normal gait. ASSESSMENT / PLAN 1. Recurrent small intestinal Crohn disease The improvement in his laboratory studies and in his weight and his ability to taper and discontinue prednisone all indicate a benefit from Skyrizi so far. However, he has increased activity of inflammation in the 50 cm long segment of involved small bowel. I will investigate if it is possible to check a risankizumab trough blood level and if so we will set this up. We discussed the option for surgery, he has had extensive previous resection and he would require resection of most of the remainder of the ileum to remove the 50 cm segment of involved bowel and he would need stricture plasties. These options should be considered if his quality of life is unacceptable despite treatment with the Skyrizi. I recommend he return here next summer for evaluation we plan to include CT enterography and colonoscopy at that time. We discussed that I am retiring at the end of this year and I will place orders for testing for him next summer. He will contact the [facility] in the meantime if needed. I spent 35 minutes [id number] with the patient. The majority of time was for counseling and coordination of care. COLLECTOR HISTORY: José Miguel Carreno JR is a 62 year old male with Crohn's, referred by Dr. Isa Anand. 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 Stokes until he retired 02/2022. Dr. Phi Nichole was his surgeon but he hasn't seen him in about 10 years. He then established here with Dr. Isa weathers. He has had a total of 8 operations, mostly with Dr. Phi Kaur, including multiple strictureplasties then the most recent with Dr. Nichole. Now he is doing pretty well - functioning quite well. He thinks the EBD that Dr. Moss did helped with his backed-up obstructive symptoms, distension, bloating with gas which has decreased by 50%. Not having any abd pain, BM's 3x/day, less watery than before he dilation. No blood. No pain w BM, no abd pain now. His weight is up a little - 207 last week, 201 this week. Still on budesonide and 7 of prednisone (several years on steroids). Awaiting Skyrizi increase plus addition of Entyvio. He has multiple appts this week including a H2 breath test and establishing with our EPS re: his defibrillator. PAST MEDICAL HISTORY Diagnosis Date Crohn disease (HCC) PAST SURGICAL HISTORY Procedure Laterality Date BOWEL RESECTION HX Current Outpatient Medications Medication Sig Dispense Refill predniSONE (DELTASONE) 1 mg tablet Take 1 tablet by mouth once daily. [address] (PROTONIX) 40 mg tablet Take 1 tablet by mouth DAILY (6 AM). 30 tablet 0 risankizumab-rzaa (SKYRIZI) 360 mg/2.4 mL (150 mg/mL) wearable injector Inject 360 mg subcutaneously every 4 weeks. 2.4 mL 5 lisinopril (ZESTRIL) 20 mg tablet Take 20 mg by mouth once daily. potassium chloride 20 mEq TbER Take 3 tablets by mouth once daily. 90 tablet 2 amLODIPine (NORVASC) 2.5 mg tablet Take 2.5 mg by mouth once daily. Cholecalciferol, Vitamin D3, 25 mcg (1,000 unit) cap Take by mouth q 24 HR. cyanocobalamin 1,000 mcg/mL TAKE DIRECTED ONCE A MONTH Injection for 30 metoprolol succinate ER (TOPROL XL) 25 mg 24 hr tablet Take 12.5 mg by mouth once daily. ferrous bis-glycinate chelate (IRON BISGLYCINATE CHELATE) 29 mg iron cap Take 1 capsule by mouth once daily. 1 capsule 5 budesonide (ORTIKOS) 6 mg capsule, extended release Take 6 mg by mouth every morning. predniSONE (DELTASONE) 10 mg tablet Take 10 mg by mouth once daily. No current facility-administered medications for this visit. PHYSICAL FINDINGS OF NOTE: Patient reported height 6'4 and weight 201 lbs General - Normal, healthy, cooperative, in no acute distress Able to interact verbally by video conference Pulmonary - respiratory effort normal Abdominal - Not performed Motor - patient seen sitting with Normal appearing strength and coordination Anorectal exam - Not Performed Medical Decision Making: Assessment Assessment & Diagnosis: José Miguel Carreno JR is a 62 year old male with extensive jejunoileitis who is clinically improved after EBD. Minimally symptomatic at this point. Surgery would be #9 and involve multiple strictureplasties - possibly even a Michelassi - vs. A 50 cm small bowel resection. Last operation was 8 hrs mainly due to adhesiolysis. Has never had a stoma. The possibility of a temp diverting loop jejunostomy and TPN for 6 months. Data Reviewed: Tests & Documents Reviewed/ordered: Review of prior notes from EHR Review of prior operative reports Review of Pathology Review of Imaging: CT Abdomen, CT Pelvis Review of Labs: CBC Review of Procedures / Tests: Colonoscopy Assessment by: Care Center Team Additional testing or imaging to be ordered: SBFT I have independently interpreted: CT Abdomen, CT Pelvis I have discussed José Miguel Carreno JR's treatment plan and/or results with him. Treatment plan: Overall he is clinically doing quite well right now after EBD. Agree with operating while healthy but if he starts to lose weight we might need to back off to exclusive enteral nutrition or parenteral nutrition. Presently he takes 1 [employer] 455 kcal per day and gatorade. Has not tried liquid IV or drip drop. I recommend holding off on surgery at this point but getting a small bowel follow-through to map out the strictures more precisely and then following up with Dr. Moss and myself in about 6 weeks - sooner if symptoms recur. May need repeat/serial EBD. We did discuss his pseudoaneurysm and if he has any more bleeding complication he would require surgery. The argument could certainly be made to proceed with surgery sooner but it appears the pseudoaneurysm has been adequately treated. What I suggested is that after the SBFT Dr. Moss and I presenthis case at IBD Conference and go over everything. Risk of morbidity, mortality and/or complications of treatment plan: moderate I spent a total of 60 minutes on the date of the service which included preparing to see the patient, [id number] patient care, completing clinical documentation, obtaining and/or reviewing separately obtained history, performing a medically appropriate examination, counseling and educating the pat ient/family/caregiver, ordering medications, tests, or procedures, communicating with other HCPs (not separately reported), independently interpreting results (not separately reported), communicatingresults to the patient/family/caregiver, and care coordination (not separately reported). CC Dr. Isa Anand; Shade Vieira MD, MS, FACS, FASCRS Inflammatory Bowel Disease Surgery Section Director of Research Department of Colorectal Surgery [facility] [address] [place] [address] documented in this encounterSelect [facility] Evaluation note* Encounter Date Diagnosis Assessment Notes Treatment Notes Treatment Clinical Notes Sep, Sore throat (ICD-10 - J02.9) Sep, Candidiasis of mouth (ICD-10 - B37.0) Discussed with patient does have mild onset of oral thrush. This is likely related to immunosuppressive medications, frequent use of steroids. We will treat with nystatin. Patient is advised to swish and swallow. Continue use times about 7 to 10 days or at least 48 hours after symptoms are completely resolved. Discussed it does cause inflammation to the oral mucosa, avoid aggravating foods such as citrus, tomato products, salty foods. Follow-up with PCP if not gradually improving over the next week or significantly worsening. Patient verbalized understanding of treatment plan. [employer] Other 07-20-2023 Miscellaneous Notes* Telephone Encounter - Kate Traylor - 09/29/2022 2:35 PM EDT Requested Prescriptions Pending Prescriptions Disp Refills predniSONE (DELTASONE) 1 mg tablet 60 tablet 0 Sig: Take 1 tablet by mouth once daily. Called spoke with patient who stated he is still taking 7 mg prednisone daily. Last visit: 09/12/22 Next visit: not currently scheduled with GI scheduled with [facility] 10/10/22 Last Labs: 09/20/22 Kate Traylor LPN documented in this encounterSelect [facility] [place] Nurse Note* Shun San RN - 09/26/2022 8:30 AM EDT PICC/VASCULAR ACCESS PROGRESS NOTE SERVICE DATE: 09/26/2022 SERVICE TIME: 0800 8:08 AM Requested to see patient who has had unsuccessful IV attempts, needs new IV. Using ultrasound guidance, A peripheral IV was started in the Left forearm with a Angio cath: 20 gauge. 1.25 inches in length, on first attempt. Brisk blood return and flushed without difficulty with 10 mL saline. No symptoms of complications. SIGNATURE: Shun San RN PATIENT NAME: José Miguel Carreno JR DATE: September 26, 2022 TIME: 8:08 AM PAGER/CONTACT #: [id number] documented in this encounterSelect [facility] [place] Evaluation note* Encounter Date Diagnosis Assessment Notes Treatment Notes Treatment Clinical Notes Sep, Strain of right knee, initial encounter (ICD-10 - S86.911A) Ice, heat, and rest Avoid NSAIDS due to Prednisone and increased bleeding risk Knee sleeve Quad exercises Avoid squatting and kneeling 13 Sep, 2022 Primary hypertension (ICD-10 - I10) This patient is instructed to consume a healthy, low-fat, low-salt diet. They are also encouraged to continue exercise to achieve/maintain a normal BMI. Patient is instructed on home BP measurements: - rest for 5 minutes w/o talking- positioned w/ feet on floor and arm supported- average best 2/3 readings w/ goal < 135-85 Instructed to double Lisinopril if remains > 140/90 [employer] Other 07-06-2023 History of Present illness Narrative* Thalia Whyte - 09/15/2022 6:46 AM EDT [facility] received prescription(s) for Skyrizi from Dr. Anand. Benefits investigation was conducted, indicating that a prior authorization is required by patients plan with [employer]. Encounter will be updated once prior authorization has been submitted by [facility]. Thalia Whyte CPhT [facility], Inflammatory P: [phone] F: [phone] documented in this encounterSelect [facility] [place]23 History of Present illness Narrative* Hunter Blood RPh - 09/14/2022 2:06 PM EDT IBD Med Update Due to most recent colonoscopy findings and current GI symptoms, will plan to dose escalate Skyrizito q4 weeks. Updated Rx sent to [facility]. documented in this encounterSelect [facility] [place]23 History of Present illness Narrative* Jay Anand MD, PhD - 09/12/2022 8:08 AM EDT VIRTUAL VISIT FOLLOW UP José Miguel Carreno JR [id number] has requested a video telemedicine follow-up visit. José Miguel Carreno JR verbalized informed consent to proceed with the video telemedicine follow-up visit. José Miguel Carreno JR wasinformed that the details of this video visit would be recorded as part of their electronic medicalrecord. I have communicated my name and active licensure. The patient's identity and physical location wereverified at the time of this visit. Either the patient or their legal uniforms sales representative has been informed of the risks and benefits of -- and alternatives to -- treatment through a remote evaluation andconsents to proceed with the evaluation remotely. Patient location at time of call: none Additional encounter participants and relationship: none No chief complaint on file. I had a virtual visit with Mr. Carreno today for follow up of Crohn's disease. UPDATED HISTORY: - Colonoscopy on 09/08 showed Rutgeers i4 associated with ileal stricture dilated to 13.5 mm - Weight gain over past 3 months. Is taking [employer] supplements as advised by dietitians. Albuminhas normalized. - Hypokalemia, with dose of potassium supplementation increased to 60 mEq - Overall, from a symptom standpoint he is at his baseline. Current Clinical Symptoms # of bowel movements daily: 3-4 # of liquid stools daily: 0 Consistency: mushy Bloody bowel movements: no Urgency: no Abdominal pain: no Abdominal distention: no Nausea/vomiting: no Weight loss over last 3 months: no General well-being: well PAST MEDICAL HISTORY Diagnosis Date Crohn disease (HCC) PAST SURGICAL HISTORY Procedure Laterality Date BOWEL RESECTION HX No family history on file. Social History Tobacco Use Smoking status: Never Smokeless tobacco: Never Vaping Use Vaping Use: Never used Substance Use Topics Alcohol use: Never Drug use: Never Current Outpatient Medications Medication Sig Dispense Refill lisinopril (ZESTRIL) 20 mg tablet Take 20 mg by mouth once daily. predniSONE (DELTASONE) 1 mg tablet Take 1 tablet by mouth once daily. 60 tablet 0 potassium chloride 20 mEq TbER Take 3 tablets by mouth once daily. 90 tablet 2 risankizumab-rzaa (SKYRIZI) 360 mg/2.4 mL (150 mg/mL) wearable injector Inject 360 mg subcutaneously every 8 weeks. amLODIPine (NORVASC) 2.5 mg tablet Take 2.5 mg by mouth once daily. Cholecalciferol, Vitamin D3, 25 mcg (1,000 unit) cap Take by mouth q 24 HR. cyanocobalamin 1,000 mcg/mL TAKE DIRECTED ONCE A MONTH Injection for 30 metoprolol succinate ER (TOPROL XL) 25 mg 24 hr tablet Take 12.5 mg by mouth once daily. ferrous bis-glycinate chelate (IRON BISGLYCINATE CHELATE) 29 mg iron cap Take 1 capsule by mouth once daily. [address] (PROTONIX) 40 mg tablet Take 1 tablet by mouth DAILY (6 AM). 30 tablet 0 budesonide (ORTIKOS) 6 mg capsule, extended release Take 6 mg by mouth every morning. predniSONE (DELTASONE) 10 mg tablet Take 10 mg by mouth once daily. No current facility-administered medications for this visit. ALLERGIES Allergen Reactions Imuran [Azathioprin* Other: See Comments Joint stiffness Tylenol [Acetaminop* Other: See Comments Fever and clammy PHYSICAL FINDINGS OF NOTE: General: alert and appropriate, in no distress and well-hydrated, well nourished , Psych: Appropriate mood and interaction Skin: no rash noted, Respiratory: breathing non-labored, and no grunting/flaring/retractions, Chest: equal chest rise with normal respiratory effort, Neuro: Patient seen sitting with normal appearing strength and coordination REVIEWED ITEMS CBC: WBC (k/uL) Date Value 08/18/2022 7.46 Hematocrit (%) Date Value 08/18/2022 35.7 (L) MCV (fL) Date Value 08/18/2022 83.2 Platelet Count (k/uL) Date Value 08/18/2022 227 Lymphocytes % (%) Date Value 06/21/2022 10.0 Hepatic Function Panel: Albumin (g/dL) Date Value 09/01/2022 3.6 (L) Bilirubin, Total (mg/dL) Date Value 09/01/2022 0.4 Bilirubin, Conjugated (mg/dL) Date Value 06/22/2022 0.6 (H) Alkaline Phosphatase (U/L) Date Value 09/01/2022 77 AST (U/L) Date Value 09/01/2022 22 ALT (U/L) Date Value 09/01/2022 18 Protein, Total (g/dL) Date Value 09/01/2022 5.9 (L) Assessment IMPRESSION José Miguel Carreno JR is a 62 year old male with PMH of Crohn's disease, diagnosed in 1999's s/p ileocolonic resection, previously on infliximab, adalimumab, certolizumab, ustekinumab, vedolizumab, off labelupadacitinib in 2020, currently, steroid-dependent and on rizankizumab since September 2021, recently hos 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 He has failed extensive number of medical therapies (see HPI) and is steroid-dependent at this point.He is currently on risankizumab since September 2021, budesonide 6 mg and prednisone 7.5 mg. From a symptom standpoint, is at high baseline of 3-4 BM and occasional abdominal pain. Has been able to gain weight. Most recent CT abdomen from June shows multifocal active enteritis with luminal narrowing and stricturing. He underwent colonoscopy in August 2022 which showed active ileitis, Rutgeers i4 associated with stricture with inner diameter of 10 mm, dilated to 13.5 mm. Regarding medical management of Crohn's disease, given active disease, we discussed dose escalationof Skyrizi versus adding Entyvio. I favor first dose escalation of Skyrizi to q 6 weeks. If not approved by insurance, Entyvio can be added. Baseline CT enterography is recommended. Follow up visit in 6 months with repeat colonoscopy is recommended to assess response to therapy and for dilation of ileal stricture. Although there does not seem to be a clear indication for surgical intervention at this time, patient has been scheduled to visit with our colorectal colleagues for review of this case. Regarding, iron deficiency anemia, patient has been started on iron supplementation 2 weeks ago, which should be continued for 6 months. Regarding hypokalemia, this is likely secondary to GI losses. Potassium supplementation was recently increased from 40 to 60 mEq last week. Potassium will be rechecked. Finally, regarding health maintenance, patient is due for a bone scan given chronic prednisone use. Physician Global Assessment of Disease Activity: moderate disease PLAN - Budesonide 6 mg and Prednisone 7 - Dose escalation of Skyrizi. If not approved by insurance, Entyvio to be added to current regimen. - DEXA scan - Potassium check now and in 1 week. At that time, folate and CBC will be obtained. - CT enterography - Continue iron supplementation - Return visit in 3 months. I spent 30 minutes in the virtual visit, with more than 50% of the total [id number] time of the visit in counseling / coordination of care. I have confirmed and edited as necessary, the PFSH and ROS obtained by others. I will communicate my recommendations and prescriptions to the patient's primary care provider. Unrelated to E/M, telemedicine, or virtual visit service provided within previous 7 days. No E/M service or procedure anticipated within next 24 hours. Jay Anand MD, PhD September 12, 2022 8:08 AM documented in this encounterSelect [facility] [place] Miscellaneous Notes* Telephone Encounter - Kate Traylor - 09/05/2022 10:27 AM EDT Received return call form patient advised of lab order from Dr Moss . Patient verbalized understanding and requested to complete outside of [facility]. Advised lab order will be sent via mSpot attachment.Patient verbalized understanding . Kate Traylor LPN * Telephone Encounter - Kate Traylor - 09/05/2022 8:31 AM EDT Images from the original note were not included. Jay Anand MD, PhD Hunter Blood, [facility]; Kate Traylor Thank you for doing this! Ordered signed. Kate, can you let patient know to get blood draw 1 week from today? Thanks, Brodie Called patient unable to reach left voicemail for return call to . Kate Traylor LPN documented in this encounterSelect [facility] [place]23 Miscellaneous Notes* Addendum Note - Hunter Blood RPh - 09/02/2022 4:08 PM EDTAddended by: HUNTER BLOOD on: 09/02/2022 04:23 PM Modules accepted: Orders documented in this encounterSelect [facility] [place]-22-2023 Miscellaneous Notes* Telephone Encounter - Jennie Salguero LPN - 09/01/2022 8:21 AM EDT GI Pre-Procedure Spoke with patient: Yes Confirmed date scheduled and patient report time: Yes Procedure Planned:Colonoscopy with or without biopsies based on clinical findings Is the patient on blood thinners?no Procedure Instructions given to patient: Yes, and they verbalized their understanding of instructions given Patient instructed to take prescribed preparation prior to procedure:Yes, and they verbalized theirunderstanding of instructions given Patient instructed to have family/friend present for procedure transport home:Patient/patient uniforms sales representative was told that if they do not have a responsible adult accompany them to their procedure; and remain in the endoscopy area until they are discharged; that their procedure cannot be done with s edation or anesthesia and may be cancelled. and They verbalized their understanding and agree to have a responsible adult accompany the patient to their procedure and remain in the endoscopy area. Any barriers to Patient learning: Patient/Patient Out And Out Cigar Maker Hand responded appropriately on phone. Type of instruction given: Verbal by telephone contact. Jennie Kearney LPN documented in this encounterSelect [facility] [place]23 History of Present illness Narrative* Hunter Blood RPh - 08/25/2022 9:00 AM EDT Images from the original note were not included. IBD Medication Consult [facility] Patient consents to pharmacy consult agreement. The initial consult was conducted virtually with the patient where the consult agreement was explained. The patient may decline or cancel the agreement at any time. After consideration, the patient consented to the pharmacy consult agreement and agreed to allow medications be collaboratively managed by a pharmacist. Patient Name: José Miguel Colon Ev RODRIGUEZ IBD Provider: Dr. Moss IBD: Crohn's disease [K50.90] IBD Dx (year): 1997August 25, 2022 Reason for consult: health maintenance review and reconciliation Met with José Miguel brennan VV. He reports: - on risankizumab 360 mg SQ Q8 weeks. Due for next dose 09/11/22. Has $0 copay and sharps container. Denies ADRs. Self-injects into thigh. Doesn't feel this medication is working as well, but also feels that condition could be due to personal factors such as anxiety. Last his son last year. Has also previously been on Remicade (never had level checked to his knowledge), Humira worked best (long time), Cimzia (antibodies) - then had surgery, then restarted Cimzia but ineffective, also treated withStelara and Entyvio, both ineffective. Was also on Rinvq off-label, taking 3 pills of 15 mg tablets(45 mg PO daily) and felt this had more benefit than Skyrizi. - on pred 7.5 mg Po daily til the and taking budesonide 6 mg PO daily. - no changes in GI sxs since Dr. Moss's visit but has noticed edema in ankle that started 2-3 weeks ago. Has been on amlodipine for a long time now. - planning to see Dr. Mccrary on 09/12/22 Med red: MVI Vitamin d3 25 mcg daily potassium 40 meq daily metoprolol 12.5 mg daily amlodipine 2.5 mg daily b12 1000 mcg sq monthly PRIOR TREATMENT 5-ASA: No Thiopurines: No Methotrexate: Yes, ineffective Anti-TNF: Yes: infliximab - reason for switch: Ineffective, adalimumab - reason for switch: other: ineffective despite dose escalation to weekly, and certolizumab pegol - reason for switch: Ineffective Anti-Integrin: No: Anti-Interleukin: Yes ustekinumab - reason for switch: Ineffective; risankizumab 2021 - current ANAID Inhibitor: Yes upadacitinib - reason for switch: Ineffective S1P Modulator: No CLINICAL SYMPTOMS # of bowel movements daily: 4 # of liquid stools daily: 1 Consistency: mushy Bloody bowel movements: no Urgency: no Abdominal pain: no Abdominal distention: no Nausea/vomiting: no Weight loss over last 3 months: yes: lost 15lbs General well-being: slightly below average SOCIAL HISTORY Tobacco use: no EtOH: No PAST MEDICAL HISTORY Diagnosis Date Crohn disease (HCC) PAST SURGICAL HISTORY Procedure Laterality Date BOWEL RESECTION HX Current Outpatient Medications Medication Sig Dispense Refill ferrous bis-glycinate chelate (IRON BISGLYCINATE CHELATE) 29 mg iron cap Take 1 capsule by mouth once daily. [address] (PROTONIX) 40 mg tablet Take 1 tablet by mouth DAILY (6 AM). 30 tablet 0 budesonide (ORTIKOS) 6 mg capsule, extended release Take 6 mg by mouth every morning. predniSONE (DELTASONE) 10 mg tablet Take 10 mg by mouth once daily. risankizumab-rzaa (SKYRIZI) 150 mg/mL injection Inject 150 mg subcutaneously. No current facility-administered medications for this visit. ALLERGIES Allergen Reactions Imuran [Azathioprin* Other: See Comments Joint stiffness Tylenol [Acetaminop* Other: See Comments Fever and clammy FAMILY HISTORY No family history on file. PERTINENT VITALS AND LABS Weight/BMI: Wt: 88.5 kg (195 lb) BMI: 23.74 kg/(m^2) TB: No results found for: TBGNIL, TBGINT, TBG1AG, TBG2AG, TBGRES, TBMITN TB (09/03/21 @ OSH) - negative TPMT: No results found for: TPMTACT Calprotectin stool/inflammation: No results found for: CALPTN Calpro (08/18/22) - 179 CRP Date Value Ref Range Status 06/21/2022 <0.3 <0.9 mg/dL Final CBC: WBC (k/uL) Date Value 08/18/2022 7.46 Hemoglobin (g/dL) Date Value 08/18/2022 10.9 (L) Hematocrit (%) Date Value 08/18/2022 35.7 (L) MCV (fL) Date Value 08/18/2022 83.2 Platelet Count (k/uL) Date Value 08/18/2022 227 Lymphocytes % (%) Date Value 06/21/2022 10.0 RENAL/HEPATIC: BUN (mg/dL) Date Value 08/18/2022 10 Creatinine (mg/dL) Date Value 08/18/2022 0.93 Albumin (g/dL) Date Value 08/18/2022 3.6 (L) Bilirubin, Total (mg/dL) Date Value 08/18/2022 0.3 Bilirubin, Conjugated (mg/dL) Date Value 06/22/2022 0.6 (H) AST (U/L) Date Value 08/18/2022 20 ALT (U/L) Date Value 08/18/2022 18 VITAMIN B12 & D25 No results found for: B12 No results found for: VITD25 LIPID PANEL: No results found for: CHOL, HDL, LDL, TG MEDICATION LEVEL Certolizumab TDM Levels 04/17/20 <1.0 Antibody Negative Vedolizumab TDM levels 01/28/20 21.8 Antibody Negative Adalimumab: No results found for: ADNEAB Infliximab: No results found for: IFXT, EERIFX Thiopurine metabolites: No results found for: 6TG No results found for: 6MMP PERTINENT IMAGING/PROCEDURES EGD 06/22/22 Impression: No gross lesions in the entire esophagus. Red blood in the entire stomach. No gross lesions in the entire stomach. Blood in the entire examined duodenum. Jejunal blood. No specimens collected. XR ABD 1V SUPINE 06/22/22 IMPRESSION: NG/OG tube tip in the gastric body with side port below the diaphragm. Sequela of recent angiogram/embolization in the left lower quadrant. Excreted contrast within the left urinary tract. No dilated loops of bowel. IR ANGIOGRAPHY/VENOGRAPHY CONSULT 06/22/22 IMPRESSION: ANGIOGRAPHY DEMONSTRATED LARGE PSEUDOANEURYSM WITH RUPTURE AND ACTIVE EXTRAVASATION RESPONDED TO A PROXIMAL SMALL BOWEL LOOP OF BOWEL. GIVEN THE CONCERN ABOUT COAGULOPATHY AND VASOCONSTRICTION, THIS WAS EMBOLIZED TO STASIS WITH GLUE WITH HEMOSTASIS ACHIEVED. CTA ABD/PEL W IVCON 06/21/22 IMPRESSION: 1. No evidence of active GI bleed. 2. Overall stable appearance of the abdomen/pelvis compared to prior CT scan on same date with findings consistent with pneumatosis intestinalis of the cecum and ascending colon and trace pneumoperitoneum. CT ABD/PEL W IVCON 06/21/22 IMPRESSION: Multifocal active inflammatory small bowel disease with luminal narrowing and stricturing. Inflammatory changes most prominent along lower midline abdominal bowel loops without a focal collection. Colonic pneumatosis with a few punctate foci of pneumoperitoneum. CT ABD/PEL ENTEROGRAPHY W IV CON 02/16/22 Impression: 1. Overall very similar appearance of the discontinuous strictures with inflammation related to Crohn's disease compared to 09/03/2021 exam but with new active inflammation within a previously seen normal segment, however. Upstream dilatation of bowel, consistent with mild obstruction. 2. 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 No drainable abscess. 3. Stable short segment jejunal strictures with mild upstream dilation. 4. Benign pneumatosis has not appreciably changed. CT ABD/PEL ENTEROGRAPHY W IV CON 09/03/21 Impression: 1. Overall no significant change in extent and severity of Crohn's disease involving the distal ileum, with multiple discontinuous strictures with active inflammation. 2. No significant change in previously seen penetrating disease with a small polyp or mass and multiple enteroenteric fistulas. No abscess or drainable fluid collection. 3. Similar upstream obstruction of the ileum proximal to the longest segment of disease. 4. Stable adjacent short segment jejunal structures. 5. Increased pneumatosis involving the proximal colon from prior exams. However, given that this has been present since 2018, this is likely benign. CT ABD/PEL ENTEROGRAPHY W IV CON 02/02/21 Impression: 1. Overall similar extent and severity of Crohn's disease compared to 08/31/2020. Long segment of distal ileum with multiple discontiguous strictures with superimposed active inflammation. 2. No significant change in penetrating disease with a small inflammatory mass and small enteroenteric fistulas. No abscess or drainable fluid collection. 3. Similar degree of obstruction in the ileum just proximal to the long segment of disease which measures 5 cm in diameter. Slight interval increase in degree of obstruction in the jejunum of an intervening segment between strictures that measures 3.[address] ABD/PEL ENTEROGRAPHY W IV CON 08/31/20 Impression: 1. Redemonstration of findings of active inflammatory Crohn's disease involving a long segment of the distal ileum and short segments in the jejunum. There is increased intramural fat deposition consistent with chronic formation, though the degree of active inflammation appears similar. 2. Similar degree of stenosis with stable mild dilatation of the ileum proximal to the long segment. 3. There appears be a small interloop fistula between two segments of the ileal inflammation. This fistula is likely new since the prior CT. There is additional thickening extending to the proximal cecum, difficult to exclude additional fistula to the site. 4. Pneumatosis within the colon. This appears new since the CT of 01/25/2020 but is decreased since 10/23/2018. There is increased but still tiny locules of free intraperitoneal air within the left upper quadrant. No abscess or fluid collection. Given this pneumatosis has been seen dating back to at least 2018, this is likely benign, though correlation with patient's symptoms would be helpful. EGD 01/28/20 Impression - Duodenal mucosal with possible very mild lymphangiectasia. - Normal stomach. - Normal esophagus. - Biopsies performed in the gastric antrum and in the gastric body. PATHOLOGY 01/28/20 FINAL DIAGNOSIS A. Duodenum, second part, endoscopic biopsy: Normal duodenal mucosa. B. Stomach, antrum, endoscopic biopsy: Fundic-type mucosa and antral-fundic transition zone mucosa with mild chronic inflammation. No Helicobacter pylori by immunostain. C. Stomach, body, endoscopic biopsy: Fundic-type mucosa with mild chronic inflammation. No Helicobacter pylori by immunostain. HEALTH MAINTENANCE Name Date Received Up-to-date Additional notes/comments COVID-19 bivalent Yes Pneumococcal Pneumonia PCV13: 2019 PPSV23: 2018 PCV20: Yes Candidate for PCV20 in 2023 Hepatitis A 2 doses ? No results found for: HEPAIGG Check Hepatitis A titer Hepatitis B ? No results found for: HEPBCOTOL No results found for: HBSAG No results found for: HEPSABQ Check Hepatitis B titer Influenza Inactivated vaccine recommended yearly 2021 Yes Counseled to avoid live intranasal formulation Zoster recombinant (RZV) 2 dose series at month 0 and 1-2 No Candidate for Shingrix Chicken pox history: Yes Varicella vaccination: No Varicella titer: No results found for: VZVG Tetanus, diphtheria, pertussis (Tdap or Td) One dose Tdap then Td every 10 years No Candidate for HPV Females < 45 years old and males < 26 years old; 2 dose series if <15 years old NA Medication lab monitoring up to date: No Up-to-date with in clinic available vaccines (hepatitis B, pneumonia, influenza): No, reasons: in progress Up-to-date with PAP smear (annually or Q2 years if HPV negative): NA Up-to-date with skin check: Yes (Jan 2022) Up-to-date with DEXA scan (low BMI, post-menopausal, steroids >3 months, FHx of osteoporosis, smoking: baseline and repeat Q5 years if initial screen is normal): No Smoking cessation achieved: NA ASSESSMENT/PLAN José Miguel Carreno JR is a 62 year old White male with Crohn's disease, presently active since 07/28/21 given diarrhea and radiographic evidence CT abdomen findings of multifocal active enteritis with luminalnarrowing and stricturing. Treated with extensive number of medical therapies (all ineffective) andis steroid-dependent at this point. He is currently on risankizumab since September 2021, budesonide 6 mg and prednisone 7.5 mg. Of note, he has chronic hypoalbuminemia, likely secondary to active enteritis. 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 Plan to restage condition and consider dose escalation of Skyrizi and/or add on Entyvio Regarding next steps, we recommend restaging at this time with CT enterography and colonoscopy. We discussed importance of optimizing his biologic medical therapy in order to decrease dosing of systemic steroids. A consideration would be to dose escalation to Skyrizi and if this approach were to fail, to add Entyvio. Given patient's stricturing disease, he is certainly at risk for superimposed SIBO which could explain his intermittent bloating and diarrhea. We will refer patient to our colorectal surgery colleagues to discuss potential role of surgery if he were to fail despite medical therapy optimization. A dietitian consult is recommended to discuss low fiber diet and to optimize diet inthe setting of hypoalbuminemia. His most recent QuantiFERON in 2021 was negative and has had a recent bone scan, which did not demonstrate evidence of osteoporosis despite chronic steroid use Medication Management - Continue risankizumab 360 mg SQ Q8 weeks. Next step is to restage disease activity with enterography and colonoscopy. Briefly discussed he may be candidate for Skyrizi dose escalation and/or initiation of Entyvio. Has had great response to anti-TNF therapy in past, depending on infliximab history, wonder if he would be good candidate for this again with close monitoring for anti-drug antibody. Due for repeat TB test and hep B panel. - Continue budesonide 6 mg PO daily and prednisone 7.5 mg PO daily. Taper plan to be discussed withDr. Moss in September. CSP scheduled 09/08/22. - Updated med list in [facility] Health Maintenance - Recommend the following vaccines: PCV20 (Prevnar 20), zoster recombinant (Shingrix) 2-dose series, and Td. Recommend checking hep A and B titers (ordered). - Recommend the following health maintenance appts: DEXA Scan Next PharmD visit: PRN Next IBD MD/ ESTHER visit: 09/22/22 Next labs due: TBD Next dose due ALPESH: 09/11/22 José Miguel Colon Ev endorses understanding to above. Denies other questions and concerns and is aware to contact us in future if needed. Hunter Blood, PharmD, BCACP, MS IBD Clinical Pharmacist Interventions made: medication reconciliation, health maintenance need assessment, lab management, and medication management Time spent (mins): 30 documented in this encounterSelect Medical [facility] [place]05-30-[facility]23 Instructions* Patient Instructions* Phi Cummings, MADHU - 08/09/2022 9:13 AM EDT Nutrition Plan: Continue overall low roughage diet for stricture Please see attached handout for full food list In general, limit whole nuts/seeds, beans, raw vegetables, and the skins/seeds of fruits and vegetables. Foods you can try adding: Fruits: canned pears/peaches, applesauce, ripe banana, ripe honeydew, ripe cantaloupe, most fruit in a smoothie (would still limit pineapple) Vegetables: soft cooked carrots, sweet potatoes without the skin, tomato sauces, eggplant baked without the skin, any vegetables in a soup Other: Hummus, cashew butter Continue good meal hygiene Chew your food well Minimize distractions while eating Dietary options to help treat Crohn's Disease EEN - 8 weeks of only nutrition supplements such as Ensure or Boost. Most effective diet for helping reduce inflammation. https://patient.gastro.org/ugklgwrtg-srkztcw-kuktfnnje-foc-qhp-diyuqs-disease/ Crohn's Disease Exclusion Diet (CDED) - 12 week diet split into two 6 week phases. Part of your nutrition comes from a restricted diet, the other part from nutrition supplements See attached handouts Please let me know if you start one of these diets at any point. Supplements I will talk with Dr. Moss about monitoring potassium and which iron supplement When taking iron, avoid taking with caffeine, eggs, and high calcium foods (dairy products)0 Follow up with Phi Cummings RD, in 8-12 weeks. Please call [phone] to schedule an in-person visit or [phone] option 0 to schedule a virtual visit. documented in this encounter[facility] [place] History of Present illness Narrative* Phi Cummings RD - 08/09/2022 8:30 AM EDT GI Nutrition Initial Assessment TeleHealth Consult I have communicated my name and active licensure. The patient's identity and physical location wereverified at the time of this visit. Either the patient or their legal uniforms sales representative has been informed of the risks and benefits of -- and alternatives to -- treatment through a remote evaluation andconsents to proceed with the evaluation remotely. Nutrition Diagnosis: Altered Gastrointestinal Tract Function, related to, Crohn's disease, as evidenced by stricture, 3-4 bowel movements per day with oatmeal consistency, abdominal pain/spasms . RECOMMENDED MALNUTRITION DIAGNOSIS: NO MALNUTRITION IDENTIFIED NUTRITION CARE PLAN Nutrition Intervention August 05, 2022: Diet: - Continue low roughage diet for stricturing disease - Expand diet with additional low roughage foods - Continue to chew food well and limit distractions at mealtimes - Discussed CDED and EEN as options to help manage Crohns. He prefers to hold off until after meeting with [facility], but is interested in pursuing these at a later date. - Continue poweraid, will consider ORS at next visit Vitamins/Minerals: - Continue MVI and vitamin D - Okay to continue potassium - Start iron supplement, may benefit from ferrous bisglycinate (gentler on the gut) Oral supplement: - Switch from Ensure clear to Ensure plus Labs: - Consider monitoring potassium while on supplements Nutrition Monitoring & Evaluation: Improvement in GI symptoms Criteria: per patient report Need for Follow up: 8-12 weeks This is a 62 year old male with an underlying diagnosis of Crohn's Disease since 1999 who is followed by Dr. oMss. PMH includes HTN. GI surgical history includes multiple ileocolonic resections (103cm small bowel resected, last resection 2010). Recently admitted for GI bleed and had severe bleeding requiring ICU and [address] ABD/PEL (06/21/2022) showed multifocal active inflammatory small bowel disease with luminal narrowing and stricturing. Currently on Skyrizi, prednisone,and budesonide. Today, patient reports the following: - Ventrical dysplasia (defibrillator) - Notes that symptoms are stress and anxiety related. - Had a 6 day a week job, now retired. Lost son a year ago in May. - Hydration is going well. Starts the day with 30 ounces of water. - Energy levels are going well. - Recently stopped magnesium. - Low albumin, low K. Current Clinical Symptoms # of bowel movements daily: 3-4 # of liquid stools daily: 0 Consistency: soft, mushy, formed (oatmeal) Bloody bowel movements: no Urgency: no Abdominal pain: yes, sometimes episodes of pain and spasms. Happens weekly. Abdominal distention: no Nausea/vomiting: no Heartburn/reflux: no Intake: Appetite is normal, except episodes of pain/spasms. Tracks foods and symptoms. Ensure (clears). Spends time in the melba. Fruits: Strawberries rarely. Otherwise none. Vegetables: Potatoes. Some tomatoes. Spaghetti sauce. Nuts: no whole nuts/seeds. Peanut butter. Beans: None, no hummus. Proteins: Eggs, fish (1-2 times per week), chicken. Sometimes a burger or roast beef sandwich. No steak. Dairy: lactaid milk, yogurt, and cheese. Diet History: Breakfast - 4 pieces of toast with apple butter or butter. Sometimes eggs, cereal + lactaid milk, ukrainian toast, pancakes. Silver and cheese biscuit sandwich. Lunch - Imbler sandwich, hot dog, egg salad sandwich Snack - Cheese + crackers. Dinner - Chicken parmesan, tomato soup and grilled cheese sandwich. Fish often. Snack - Sometimes ice cream. Eating Out: Not too often. Sometimes restaraunts or fast foods - chipotle. Beverages - Water, sprite 1/day, poweraid, No alcohol. Vitamins/Supplements - - MVI daily - Potassium daily 10 mEq twice daily (1500mg total) - Vitamin D3 Allergies/Intolerance: - None Imuran [Azathioprine] and Tylenol [Acetaminophen] Medications: Current Outpatient Medications Medication Sig Dispense Refill iron,carbonyl-vitamin C (VITRON-C) 65 mg iron- 125 mg TbEC Take 1 tablet by mouth once daily. [address] (PROTONIX) 40 mg tablet Take 1 tablet by mouth DAILY (6 AM). 30 tablet 0 budesonide (ORTIKOS) 6 mg capsule, extended release Take 6 mg by mouth every morning. predniSONE (DELTASONE) 10 mg tablet Take 10 mg by mouth once daily. risankizumab-rzaa (SKYRIZI) 150 mg/mL injection Inject 150 mg subcutaneously. No current facility-administered medications for this visit. Anthropometrics: Height: Date: Ht: 07/28/2022 193 cm (6' 4 ) Weight history: Date: Wt: 08/09/2022 89.1 kg (196 lb, reported) 07/28/2022 88.5 kg (195 lb) 06/21/2022 102.8 kg (226 lb 10.1 oz) UBW: 92.3 kg/203 lbs (3 months ago, reported) Goal weight: 205 lbs BMI: 23.9 (normal) Weight has decreased by 3.2kg over 3 months representing a 3.5% weight change- not significant. Reported 15lb weight loss during hospitalization, gained about 8 lbs back per patient. Estimated needs: Calories: 2650 - 3100 kcals/day determined by 30- 35 kcal/kg Protein: 107 - 134 g/day determined by 1.2-1.5 g/kg Malnutrition Screening Significant unintentional weight loss? No Eating less than 75% of usual intake for more than 2 weeks? No Potential Signs of Inflammation: imaging studies and chronic condition Education Materials Provided: Guideline for People at Risk of Bowel Obstruction (CGRT) Referred/Supervised by: Dr. Isa Anand/Dr. Claudio MNBryon Billing Type: Initial Assess/15 min [address] documented in this encounterSelect [facility] [place] Evaluation note* Encounter Date Diagnosis Assessment Notes Treatment Notes Treatment Clinical Notes Jun, Adjustment insomnia (ICD-10 - F51.02) [employer] Other 04-19-2023 NoteAdmission and Discharge Information Admitting Physician - Betty CHACON DO Consulting Physician - Lexx Horn MD Admitting Diagnoses: Discharge Diagnoses 1. Upper GI bleed, 06/18/2022 2. Blood loss anemia, 06/18/2022 3. Crohn's disease, small and large intestine, 06/18/2022 4. HTN (hypertension), 06/18/2022 5. On deep vein thrombosis (DVT) prophylaxis, 06/18/2022 Anemia, 06/18/2022 Blood in stool, 06/18/2022 Melena, 06/18/2022 Procedure History Esophagogastroduodenoscopy (06/20/2022), Colonoscopy (08/15/2016). Hospital Course Patient is a 62-year-old male with past medical history as noted below who comes in with above-stated chief complaint. Patient was recently admitted to the hospital from 06/18/2022 to 06/19/2022 for GI bleed. Patient had an EGD performed that showed gastric erosions causing GI bleed. They were treated with ablation. Patient was then discharged home and after arriving home patient was acutely weak andshort of breath. Patient states that chest going from supine to seated position he would get very short of breath and feel his heart racing. Symptoms persisted for about 3 to 4 hours so he came to the ED for evaluation. Patient is still symptomatic in the emergency department. He denies any chest pain any abdominal pain. Patient states that he does feel weak when he walks. Patient denies any fevers, chills, nausea, vomiting, diarrhea, dysuria, vision changes. He left AMA. Procedures and Treatment Provided Procedures EGD and endoscopic hemostasis, indication 62-year-old male admitted with passing dark stools. Patient has history of Crohn's disease and had multiple bowel resection in the past. Procedurewas done under monitored anesthesia care. Procedure and Olympus video gastroscope was inserted intothe esophagus under direct visualization and advanced up to the fourth part of the duodenum. Esophageal mucosa is normal. No inflammation or ulcerations were seen. EG junction is about 40 cm from theentry. Stomach fundus body antrum and pylorus was examined. About 150 cc of coffee-ground fluid wasaspirated from the stomach and gastric mucosa was irrigated. Mucosa at the mid body of the stomach over the lesser curvature showed areas of erosions with mild oozing of blood especially on irrigation. There were few scattered erosions seen in the distal body. No deep ulcerations were seen, the area with bruising of blood was treated with APC with coagulation of tissue, 30 W with a flow rate of 1.4 L/min was used. Duodenal bulb and postbulbar duodenum was examined that showed some dark fluid inthe lumen no source of bleeding identified. No ulcerations were seen. Postop diagnosis GI bleeding secondary to gastric erosions status post ablation therapy with APC. Plan is continue Protonix wouldrecommend adding Carafate. Chief Complaint 06/18/2022 17:44 EDT patient c/o dark tarry stools that started a few days ago. denies abdominal painhx chrohns (Modified) Health Status Allergies: Allergic Reactions (All) Severity Not Documented AzaTHIOprine- Joint pain. Tylenol- Fever., Allergies (2) Active Reaction azaTHIOprine Joint pain Tylenol Fever Current medications: (Selected) Inpatient Medications Ordered Ambien 5 mg Tab: 5 mg = 1 tab(s), Tab, Oral, Once a day (at bedtime) PRN Sleep, Routine, Start date06/18/22 23:31:00 EDT, 06/18/22 23:31:00 EDT Benadryl 25 mg Cap: 25 mg = 1 cap(s), Cap, Oral, q6hr PRN Itching, Routine, Start date 06/18/22 23:33:00 EDT, 06/18/22 23:33:00 EDT HYDROmorphone 1 mg/mL injectable solution: 0.2 mg = 0.2 mL, Injection, IV Push, q2min PRN Pain for 10 dose(s), Stop date Limited # of times, Routine, Start date 06/19/22 11:42:00 EDT, 06/19/22 11:42:00 EDT Lactated Ringers IV Rosemary 1000 mL 1,000 mL: 1,000 mL, IV, 100 mL/hr, Routine, Start date 06/19/22 11:42:00 EDT, 10 hour(s), Total volume (mL): 1,000, 92 kg, 2.24, m2 NS 1000 mL Soln-IV 1,000 mL: 1,000 mL, IV, 75 mL/hr, Routine, Start date 06/18/22 23:33:00 EDT, 13.3 hour(s), Total volume (mL): 1,000, 92 kg, 2.24, m2 Phenergan 25 mg/mL Injection: 12.5 mg = 0.5 mL, Injection, IV Push, q6hr PRN Nausea, Routine, Startdate 06/18/22 23:33:00 EDT, 06/18/22 23:33:00 EDT Sodium Chloride 0.9% IV Rosemary 1000 mL 1,000 mL: 1,000 mL, IV, 125 mL/hr, STAT, Start date 06/18/22 21:59:00 EDT, 8 hour(s), Total volume (mL): 1,000, 92 kg, 2.24, m2 Zofran 4 mg/2 mL Injection: 4 mg = 2 mL, Injection, IV Push, q6hr PRN Nausea, Routine, Start date 06/18/22 23:33:00 EDT, 06/18/22 23:33:00 EDT hydrALAZINE 20 mg/mL Inj: 10 mg = 0.5 mL, Injection, IV Push, q6hr PRN Other (see comment), Routine, Start date 06/18/22 23:33:00 EDT, 06/18/22 23:33:00 EDT pantoprazole 40 mg IV Inj: 40 mg = 10 mL, Injection, IV Push, BID, Routine, Start date 06/19/22 9:00:00 EDT, mL/hr, Infuse over 2 minute(s) Prescriptions Prescribed polyethylene glycol 3350 with electrolytes Oral Pwdr for Rosemary 4000 mL (NuLytely): See Instructions, 1 EA, Refill(s) 0, per physician's instructions prio (more content not included)...[facility]Comment on above: Result Comment: Electronically Signed By: LUL MALLOY, Jose\.br\Date and Time Signed: 06/29/22 12:[id number] Evaluation note* Encounter Date Diagnosis Assessment Notes Treatment Notes Treatment Clinical Notes Jun, Acute blood loss anemia (ICD-10 - D62) Received 22u PRBC during recent hospital stay. 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 Stable H/H and hemodynamics prior to d/c Recheck H/H in week Jun, Primary hypertension (ICD-10 - I10) Stopped all medications Instructed to monitor for now, goal < 135/85 - restart if elevated Jun, Candidiasis of the esophagus (ICD-10 - B37.81) Diflucan daily x 7 days Jun, Crohn's disease of small intestine with intestinal obstruction (ICD-10 - K50.012) Stable at this time. Advance diet as tolerated Continue bioligics and Budesonide Jun, Other Successfully ablated via IR No further s/s bleeding [employer] Other 04-11-2023 NotePatient decides to leave AMA despite frequent education that leaving against medical advice puts his safety and well- being at risk. Patient has signed an AMA form, IVs have been removed, and telemetry has been taken off of patient. Patients assisting patient out of facility. Dr. Betty Chacon made aware.[facility]04-10-2023 NoteCRM entered the room to discuss dc planning. PCP, DME and insurance discussed. Patient is alert andinvolved in plan of care. Contact information provided and whiteboard updated. at bedside, pt is a readmit. Monitoring pt's Hgb, 7.3. Pt will receive blood today as well. Pt follows with [facility]. Ant dc TBD. CRM to follow. Pt will have Endo today.[facility] DaytonComment on above:Result Comment: Electronically Signed By: Nakia Erickson\Date and Time Signed: 06/20/22 12:31 [id number] Evaluation + Plan noteExtracted from: Title:ANES Post-operative Note - General Author: Herman Perry Jr., DO Date:4/10/23 Plan Transfer/Discharge: Transfer/Discharge Discharge when meets criteria ( From PACU to Ambulatory Surgery Unit, and To home ). Extracted from: Title:GI Bleed * Author:Brady HELLER MD Date:06/11 Impression and Plan 62 years old white male with history of small intestinal Crohn's disease, diagnosed initially in 1999, stricturing type, underwent multiple segmental small intestinal surgeries over the last 20 years(has 7 feet small intestinal left) failed multiple biological treatment in the past including Remicade, Humira, Stelara, Entyvio and Cimzia. Currently on Skyrizi and prednisone(steroid-dependent), admitted 2 days ago with fatigue, anemia and melena, EGD done by Dr. Vega yesterday showed mild active bleeding oozing gastric mucosa lesion treated with APC, discharged home yesterday, came back again today with worsening fatigue, worsening anemia and black stool 1. Recurring melena: Likely secondary to recurrent upper GI bleeding, the bleeding site can be the recently APC treated gastric lesions versus small intestinal bleeding source(had multiple anastomotic area secondary to his previous multiple small intestinal segmental resection surgeries) #Proceed with push enteroscopy #Please give IV iron replacement, avoid oral iron #We may need to proceed with CT enterography if bleeding persists 2. Crohn's disease, complicated with multiple small intestinal segmental surgeries, currently on Skyrizi and prednisone, monitor vital signs, consider giving a stress dose of steroids if patient develop any hypotension Extracted from: Title:ANES Pre-operative Note - Endo Author:Herman Srinivasan Jr., DO Date:06/20/22 Plan [place] [employer] (ASA) physical status classification: Class III. Anesthetic Preoperative Plan: Anesthesia General, and -TIVA. Extracted from: Title:Admission H & P Author:Betty CHACON DO Date:06/20/22 1. Dyspnea (R06.00: Dyspnea, unspecified) Unclear cause. Patient had some episodes of tachycardia and hypoxia while I was examining him. CTA chest shows no pulmonary embolism. Will place patient on oxygen as needed. DuoNeb as needed will be ordered. And concern for possible secondary adrenal insufficiency causing patient's overall symptoms. He is on chronic prednisone 10 mg p.o. daily. Will supplement patient with hydrocortisone 100 mg IV every 8 hours. 2. GI bleed (K92.2: Gastrointestinal hemorrhage, unspecified) Patient's blood count is stable from discharge. We will recheck labs in the morning. Patient will be continued on IV PPI and Carafate as recommended per GI. 3. 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 4. HTN (hypertension) (I10: Essential (primary) hypertension) Resume home medications once reconciled. Hydralazine iv prn. see orders. 5. Crohn's disease (K50.90: Crohn's disease, unspecified, without complications) Supportive care. 6. On deep vein thrombosis (DVT) prophylaxis (Z79.899: Other fci (current) drug therapy) SCD and early ambulation only. No heparin based products because of recent GI bleed. Orders: acetaminophen, 650 mg = 2 tab(s), Tab, Oral, q6hr PRN Pain, Routine, Start date 06/20/22 2:02:00 EDT, 06/20/22 2:02:00 EDT albuterol-ipratropium, 3 mL, Soln-Inh, Inhalation, QID PRN Dyspnea for 30 day(s), Stop date 07/20/22 1:55:00 EDT, Routine, Start date 06/20/22 1:56:00 EDT amlodipine, 5 mg = 1 tab(s), Tab, Oral, Daily, Routine, Start date 06/20/22 9:00:00 EDT, 06/20/22 2:04:00 EDT diphenhydrAMINE, 25 mg = 1 cap(s), Cap, Oral, q6hr PRN Itching, Routine, Start date 06/20/22 2:02:00 EDT, 06/20/22 2:02:00 EDT hydrALAZINE, 10 mg = 0.5 mL, Injection, IV Push, q6hr PRN Other (see comment), Routine, Start date 06/20/22 2:02:00 EDT, 06/20/22 2:02:00 EDT lisinopril, 20 mg = 1 tab(s), Tab, Oral, Daily, Routine, Start date 06/20/22 9:00:00 EDT, 06/20/22 2:05:00 EDT metoprolol, 12.5 mg = 0.5 tab(s), Tab-ER, Oral, Daily, Routine, Start date 06/20/22 9:00:00 EDT, 06/20/22 2:05:00 EDT ondansetron, 4 mg = 2 mL, Injection, IV Push, q6hr PRN Nausea, Routine, Start date 06/20/22 2:02:00 EDT, 06/20/22 2:02:00 EDT pantoprazole, 40 mg = 10 mL, Injection, IV Push, Daily, Routine, Start date 06/20/22 9:00:00 EDT, 06/20/22 2:06:00 EDT promethazine, 12.5 mg = 0.5 mL, Injection, IV Push, q6hr PRN Nausea, Routine, Start date 06/20/22 2:02:00 EDT, 06/20/22 2:02:00 EDT Sodium Chloride 0.9% intravenous solution 1,000 mL, 1,000 mL, IV, 125 mL/hr, Routine, Start date 06/20/22 2:02:00 EDT, 8 hour(s), Total volume (mL): 1,000, 92 kg, 2.22, m2 sucralfate, 1,000 mg = 10 mL, Susp-Oral, Oral, QID, Routine, Start date 06/20/22 9:00:00 EDT, 06/20/22 2:07:00 EDT ABO/Rh ABO/Rh History Check Ambulate with Assistance Antibody Screen Below the Knee Intermittent Pneumatic Compression Device Blood Bank ID# Cardiac Monitoring CBC w/ Indices CBC w/ Indices CTA Chest Extra Green Li Tube Intake and Output Notify Provider Vital Signs Notify Provider Vital Signs NPO Diet Oxygen Protocol Place in Status Precautions Resuscitation Status - Full Vital Signs Weight Anticipated stay greater than 2 midnights due to above Extracted from: Title:ED Note Author:Roman Kay MD Date: 1. GI bleed (K92.2: Gastroin testinal hemorrhage, unspecified) 2. Generalized weakness (R53.1: Weakness) Orders: pantoprazole, 40 mg = 10 mL, Injection, IV Push, Once, Stop date 06/19/22 22:13:00 EDT, STAT, Start date 06/19/22 22:13:00 EDT, Infuse over 2 minute(s), 06/19/22 22:13:00 EDT Sodium Chloride 0.9% intravenous solution, 1,000 mL, IV, Stop date 06/19/22 22:12:00 EDT, Start date 06/19/22 22:12:00 EDT Sodium Chloride 0.9% intravenous solution, 1,000 mL, Soln-IV, IV, Once, Stop date 06/19/22 22:13:00 EDT, STAT, Start date 06/19/22 22:13:00 EDT, Infuse over 61, minute(s) ABO/Rh ABO/Rh History Check Antibody Screen Automated Diff Basic Metabolic Panel Blood Bank ID# CBC w/ Auto Diff ECG 12 Lead Adult ED Cardiac Monitoring ED Physician consult Hospitalist for continued care eGFR Hepatic Function Panel Oxygen Saturation Oxygen Therapy PT & PTT Saline Lock Insert Troponin 0 Hr. Troponin 3 Hr. Troponin 6 Hr. Troponin 9 Hr. Future Appointments Appointment Date:12/14/2022 09:00:00 AM Scheduled Provider:Brady HELLER MD Location:[facility] [place] Dig[facility]ive [facility] Appointment Type:[facility] Follow Up Future Scheduled Tests Laboratory* CBC w/ Auto Diff 12/27/21 [facility]04-10-2023 NoteBasic Information Admit Date/Time:06/20/2022 02:02 Chief Complaint shortness of breathing, weakness, fatigue and bloody stool History of Present Illness Patient is a 62-year-old male with past medical history as noted below who comes in with above-stated chief complaint. Patient was recently admitted to the hospital from 06/18/2022 to 06/19/2022 for GI bleed. Patient had an EGD performed that showed gastric erosions causing GI bleed. They were treated with ablation. Patient was then discharged home and after arriving home patient was acutely weak andshort of breath. Patient states that chest going from supine to seated position he would get very short of breath and feel his heart racing. Symptoms persisted for about 3 to 4 hours so he came to the ED for evaluation. Patient is still symptomatic in the emergency department. He denies any chest pain any abdominal pain. Patient states that he does feel weak when he walks. Patient denies any fevers, chills, nausea, vomiting, diarrhea, dysuria, vision changes. Review of Systems 14 Systems reviewed and negative except as noted in HPI. Scoring Copeland Fall Risk Score: 35 (06/20/22) Physical Exam Vitals & Measurements T: 36.4 ?C(Oral) HR: 107(Peripheral) RR: 11 BP: 104/68 SpO2: 97% HT: 193 cm WT: 92 kg General: alert, no acute distress Skin: warm, dry Head: no trauma, normocephalic Neck: Trachea midline, no adenopathy, no tenderness Eye: normal conjunctiva, sclera clear ENMT: oral mucosa moist, no pharyngeal erythema or exudate. hearing grossly intact Cardiovascular: regular rate and rhythm, no murmur/gallop/rub Respiratory: Lungs CTA, respirations non labored , no w/r/r Gastrointestinal: Positive bowel sound, soft, non distended, no tenderness, no guarding. Extremities: no deformity, no trauma Osteopathic: Deferred due to being noncontributory to current case. Neurological: oriented x 4, LOC appropriate for age, CN II-XII intact, motor strength equal & normal bilaterally, sensation equal & normal bilaterally, speech normal Psychiatric: cooperative, affect appropriate for age, normal judgement, normal psychiatric thoughts. Lab Results WBC: 16.9 E9/L High (06/19/22 21:50:00) RBC: 3.4 E12/L Low (06/19/22 21:50:00) HGB: 9.2 gm/dL Low (06/19/22 21:50:00) Hct: 28.3 % Low (06/19/22 21:50:00) MCV: 82.5 fL (06/19/22 21:50:00) MCH: 26.9 pg Low (06/19/22 21:50:00) MCHC: 32.6 gm/dL (06/19/22 21:50:00) RDW: 15.4 % High (06/19/22 21:50:00) Platelet: 367 E9/L (06/19/22 21:50:00) MPV: 8.2 fL (06/19/22 21:50:00) Neutro Auto: 82.7 % High (06/19/22 21:50:00) Lymph Auto: 10.7 % Low (06/19/22 21:50:00) [place] Auto: 5.3 % (06/19/22 21:50:00) Eos Auto: 0.5 % (06/19/22 21:50:00) Basophil Auto: 0.8 % (06/19/22 21:50:00) Neutro Absolute: 14 E9/L High (06/19/22 21:50:00) Lymph Absolute: 1.8 E9/L (06/19/22 21:50:00) [place] Absolute: 0.9 E9/L (06/19/22 21:50:00) Eos Absolute: 0.1 E9/L (06/19/22 21:50:00) Basophil Absolute: 0.1 E9/L (06/19/22 21:50:00) PT: 12.7 second(s) High (06/19/22 21:50:00) INR: 1.1 (06/19/22 21:50:00) PTT: 25.9 second(s) (06/19/22 21:50:00) Glucose Lvl: 160 mg/dL (06/19/22 21:50:00) BUN: 23 mg/dL High (06/19/22 21:50:00) Creatinine: 1.1 mg/dL (06/19/22 21:50:00) eGFR: >60 (06/19/22 21:50:00) eGFR AA: >60 (06/19/22 21:50:00) BUN/Creat Ratio: 21 High (06/19/22 21:50:00) Sodium Lvl: 137 mmol/L (06/19/22 21:50:00) Potassium Lvl: 4.3 mmol/L (06/19/22 21:50:00) Chloride: 107 mmol/L (06/19/22 21:50:00) CO2: 23 mmol/L (06/19/22 21:50:00) AGAP: 11 mEq/L (06/19/22 21:50:00) Calcium Lvl: 8.2 mg/dL Low (06/19/22 21:50:00) Alk Phos: 55 Int._Unit/L (06/19/22 21:50:00) ALT: 26 Int._Unit/L (06/19/22 21:50:00) AST: 25 Int._Unit/L (06/19/22 21:50:00) Total Protein: 5.1 gm/dL Low (06/19/22 21:50:00) Albumin Lvl: 2.6 gm/dL Low (06/19/22 21:50:00) Globulin: 2.5 gm/dL (06/19/22 21:50:00) A/G Ratio: 1 Low (06/19/22 21:50:00) Bili Total: 0.5 mg/dL (06/19/22 21:50:00) Bili Direct: 0.1 mg/dL (06/19/22 21:50:00) Bili Indirect: 0.4 mg/dL (06/19/22 21:50:00) Troponin: 13.4 pg/mL Low (06/20/22 00:34:00) ABO/Rh: O NEG (06/19/22 22:24:00) ABSC Gel Interp: Negative (06/19/22 22:24:00) Assessment/Plan 1. Dyspnea (R06.00: Dyspnea, unspecified) Unclear cause. Patient had some episodes of tachycardia and hypoxia while I was examining him. CTA chest shows no pulmonary embolism. Will place patient on oxygen as needed. DuoNeb as needed will be ordered. And concern for possible secondary adrenal insufficiency causing patient's overall symptoms. He is on chronic prednisone 10 mg p.o. daily. Will supplement patient with hydrocortisone 100 mg IV every 8 hours. 2. GI bleed (K92.2: Gastrointestinal hemorrhage, unspecified) Patient's blood count is stable from discharge. We will recheck labs in the morning. Patient will be continued on IV PPI and Carafate as recommended per GI. 3. 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) use of systemic ster (morecontent not included)...[facility] on [facility]:Result Comment: Electronically Signed By: Betty CHACON DO\Date and Time Signed: 06/20/22 03:03 [id number] Hospital Discharge instructions Follow Up Care 06/19/2022 21:42:56 With:Betty CHACON Address: [address] [place] [phone]- [phone] Business (1) When: Unknown [facility]04-09-2023 Hospital Discharge instructions Patient Education 06/19/2022 12:08:47 Upper Gastrointestinal Bleeding Upper Gastrointestinal Bleeding Upper gastrointestinal (GI) bleeding is bleeding from the swallowing tube (esophagus), stomach, or the first part of the small intestine (duodenum). If you have upper GI bleeding, you may vomit bloodor have bloody or black stools. Bleeding can range from mild to serious or even life-threatening. If there is a lot of bleeding, you may need to stay in the hospital. What are the causes? This condition may be caused by: Ulcer disease of the stomach (peptic ulcer) or duodenum. This is the most common cause of GI bleeding. Inflammation, irritation, or swelling of the esophagus (esophagitis). A tear in the esophagus. Cancer of the esophagus, stomach, or duodenum. An abnormal or weakened blood vessel in one of the upper GI structures. A bleeding disorder that impairs the formation of blood clots and causes easy bleeding (coagulopathy). What increases the risk? The following factors may make you more likely to develop this condition: Being older than 60 years of age. Being male. Having another long-term disease, especially liver or kidney disease. Having a stomach infection caused by Helicobacter pylori bacteria. Having frequent or severe vomiting. Abusing alcohol. Taking certain medicines for a long time, such as: ?NSAIDs. ?Anticoagulants. What are the signs or symptoms? Symptoms of this condition include: Vomiting blood. Black or maroon-colored stools. Bloody stools. Weakness or dizziness. Heartburn. Abdominal pain. Difficulty swallowing. Weight loss. Yellow eyes or skin (jaundice). Racing heartbeat. How is this diagnosed? This condition may be diagnosed based on: Your symptoms and medical history. A physical exam. During the exam, your health care provider will check for signs of blood loss, such as low blood pressure and a rapid pulse. Tests, such as: ?Blood tests to measure your blood cell count and to check for other signs of blood loss and clotting ability. ?Blood tests to check your liver and kidney function. ?A chest X-ray to look for a tear in the esophagus. ?Endoscopy. In this procedure, a flexible scope is put down your esophagus and into your stomach orduodenum to look for the source of bleeding. ?Angiogram. This may be done if the source of bleeding is not found during endoscopy. For an angiogram, X-rays are taken after a dye is injected into your bloodstream. ?Nasogastric tube insertion. This is a tube passed through your nose and down into your stomach. Itmay be connected to a source of gentle suction to see if any blood comes out. How is this treated? Treatment for this condition depends on the cause of the bleeding. Active bleeding is treated at the hospital. Treatment may include: Getting fluids through an IV tube inserted into one of your veins. Getting blood through an IV tube (blood transfusion). Getting high doses of medicine through the IV to lower stomach acid. This may be done to treat ulcer disease. Having endoscopy to treat an area of bleeding with high heat (coagulation), injections, or surgicalclips. Having a procedure that involves first doing an angiogram and then blocking blood flow to the bleeding site (embolization). Stopping or changing some of your regular medicines for a certain amount of time. Having other surgical procedures if initial treatments do not control bleeding. Follow these instructions at home: Take ntex-fpx-wagjslh and prescription medicines only as told by your health care provider. You mayneed to avoid NSAIDs or other medicines that increase bleeding. Do not drink alcohol. Drink enough fluid to keep your urine clear or pale yellow. Follow instructions from your health care provider about eating or drinking restrictions. Return to your normal activities as told by your health care provider. Ask your health care provider what activities are safe for you. Do not use any tobacco products, such as cigarettes, chewing tobacco, and e- cigarettes. If you needhelp quitting, ask your health care provider. Keep all follow-up visits as told by your health care provider. This is important. Contact a health care provider if: You have abdominal pain or heartburn. You have unexplained weight loss. You have trouble swallowing. You have frequent vomiting. You develop jaundice. You feel weak or dizzy. You need help to stop smoking or drinking alcohol. Get help right away if: You have vomiting with blood. You have blood in your stools. You have severe cramps in your back or abdomen. Your symptoms of upper GI bleeding come back after treatment. This information is not intended to replace advice given to you by your health care provider. Make sure you discuss any questions you have with your health care provider. Document Released: 07/14/2016 Document Revised: 02/09/2018 Document Reviewed: 07/14/2016 [employer] Patient Education 2020 [employer]. Follow Up Care 06/18/2022 17:41:51 With:Brady HELLER Address: [address] [place] [address] Business (1) When: Unknown With:DELMIS HORN Address: [address] [facility], [place] [address]- Business (1) When: Unknown [facility]04-09-2023 Evaluation note* Encounter Date Diagnosis Assessment Notes Treatment Notes Treatment Clinical Notes Jun, Acute peptic ulcer of stomach (ICD-10 - K25.3) [facility] Other 04-09-2023 NoteCRM entered the room to discuss dc planning. PCP, DME and insurance discussed. Patient is alert andinvolved in plan of care. Contact information provide and whiteboard updated. Pt's at the bedside. Plan for EGD today and dc. No further needs. CRM to follow.[facility] DaytonComment on above:Result Comment: Electronically Signed By: Nakia Erickson.ariel\Date and Time Signed: 06/19/22 11:44 [id number] NoteChief Complaint patient c/o dark tarry stools that started a few days ago. denies abdominal pain hx chrohns History of Present Illness Patient is a 62-year-old male with past medical history as noted below comes in with above-stated chief complaint. Patient states that he noticed melanotic stools over the past 48 hours. Patient states that about 5 days ago he thought he was having a flare of his Crohn's disease with abdominal pain. Patient self started prednisone 20 mg x 2 days then 15 mg x 2 days then 10 mg daily (his chronic dose). Patient states that his abdominal pain improved but did not follow his typical course for Crohn's flares. Then on 06/17/2022 patient began to develop melena. Patient denies any lightheadedness, dizziness, shortness of breath associated with his melena. Because of the persistence of patient's symp toms he decided to come to the ED for evaluation. Patient states that his abdominal pain has completely resolved. He denies any fevers, chills, nausea, vomiting, chest pain, shortness of breath, headache, vision changes, dysuria. Patient has loose stools that is normal for him. Review of Systems 14 Systems reviewed and negative except as noted in HPI. Scoring Copeland Fall Risk Score: 15 (06/18/22) Physical Exam Vitals & Measurements T: 36.6 ?C(Oral) HR: 78(Peripheral) RR: 18 BP: 146/95 SpO2: 95% HT: 197 cm WT: 92 kg General: alert, no acute distress Skin: warm, dry Head: no trauma, normocephalic Neck: Trachea midline, no adenopathy, no tenderness Eye: normal conjunctiva, sclera clear ENMT: oral mucosa moist, no pharyngeal erythema or exudate. hearing grossly intact Cardiovascular: regular rate and rhythm, no murmur/gallop/rub Respiratory: Lungs CTA, respirations non labored , no w/r/r Gastrointestinal: Positive bowel sound, soft, non distended, no tenderness, no guarding. Extremities: no deformity, no trauma Osteopathic: Deferred due to being noncontributory to current case. Neurological: oriented x 4, LOC appropriate for age, CN II-XII intact, motor strength equal & normal bilaterally, sensation equal & normal bilaterally, speech normal Psychiatric: cooperative, affect appropriate for age, normal judgement, normal psychiatric thoughts. Lab Results WBC: 12.7 E9/L High (06/18/22 18:35:00) RBC: 3.8 E12/L Low (06/18/22 18:35:00) HGB: 10.3 gm/dL Low (06/18/22 18:35:00) Hct: 31.6 % Low (06/18/22 18:35:00) MCV: 82.2 fL (06/18/22 18:35:00) MCH: 26.9 pg Low (06/18/22 18:35:00) MCHC: 32.7 gm/dL (06/18/22 18:35:00) RDW: 15.7 % High (06/18/22 18:35:00) Platelet: 288 E9/L (06/18/22 18:35:00) MPV: 8 fL (06/18/22 18:35:00) Neutro Auto: 81.6 % High (06/18/22 18:35:00) Lymph Auto: 9.2 % Low (06/18/22 18:35:00) [place] Auto: 8.1 % (06/18/22 18:35:00) Eos Auto: 0.5 % (06/18/22 18:35:00) Basophil Auto: 0.6 % (06/18/22 18:35:00) Neutro Absolute: 10.4 E9/L High (06/18/22 18:35:00) Lymph Absolute: 1.2 E9/L (06/18/22 18:35:00) [place] Absolute: 1 E9/L (06/18/22 18:35:00) Eos Absolute: 0.1 E9/L (06/18/22 18:35:00) Basophil Absolute: 0.1 E9/L (06/18/22 18:35:00) Glucose Lvl: 92 mg/dL (06/18/22 18:35:00) BUN: 20 mg/dL (06/18/22 18:35:00) Creatinine: 1.2 mg/dL (06/18/22 18:35:00) eGFR: >60 (06/18/22 18:35:00) eGFR AA: >60 (06/18/22 18:35:00) BUN/Creat Ratio: 17 (06/18/22 18:35:00) Sodium Lvl: 137 mmol/L (06/18/22 18:35:00) Potassium Lvl: 4.2 mmol/L (06/18/22 18:35:00) Chloride: 107 mmol/L (06/18/22 18:35:00) CO2: 26 mmol/L (06/18/22 18:35:00) AGAP: 8 mEq/L (06/18/22 18:35:00) Calcium Lvl: 8.5 mg/dL Low (06/18/22 18:35:00) Occult Bld Stl: Positive1 Abnormal (06/18/22 19:02:00) Assessment/Plan 1. Upper GI bleed (K92.2: Gastrointestinal hemorrhage, unspecified) We will keep patient NPO. We will start patient on Protonix 40 mg IV every 12 hours. GI has been consulted and plan for EGD in the morning. 2. 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 Will await EGD results for further treatment plan. 3. Crohn's disease, small and large intestine (K50.80: Crohn's disease of both small and large intestine without complications) Resume patient's home medications once acute GI work-up completed 4. HTN (hypertension) (I10: Essential (primary) hypertension) Hydralazine iv prn. see orders. 5. 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 No heparin based products because of GI bleed Orders: diphenhydrAMINE, 25 mg = 1 cap(s), Cap, Oral, q6hr PRN Itching, Routine, Start date 06/18/22 23:33:00 EDT, 06/18/22 23:33:00 EDT hydrALAZINE, 10 mg = 0.5 mL, Injection, IV Push, q6hr PRN Other (see comment), Routine, Start date 06/18/22 23:33:00 EDT, 06/18/22 23:33:00 EDT ondansetron, 4 mg = 2 mL, Injection, IV Push, q6hr PRN Nausea, Routine, Start date 06/18/22 23:33:00 EDT, 06/18/22 23:33:00 EDT pantoprazole, 40 mg = 10 mL, Injection, IV Push, BID, Routine, Start date (more content not included)...[facility] DaytonComment on above:Result Comment: Electronically Signed By: Betty CHACON DO\.br\Date and Time Signed: 06/18/22 23:34 [id number] Evaluation + Plan noteExtracted from: Title:Admission H & P Author:Betty CHACON DO Date:06/18/22 1. Upper GI bleed (K92.2: Ga strointestinal hemorrhage, unspecified) We will keep patient NPO. We will start patient on Protonix 40 mg IV every 12 hours. GI has been consulted and plan for EGD in the morning. 2. 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 Will await EGD results for further treatment plan. 3. Crohn's disease, small and large intestine (K50.80: Crohn's disease of both small and large intestine without complications) Resume patient's home medications once acute GI work-up completed 4. HTN (hypertension) (I10: Essential (primary) hypertension) Hydralazine iv prn. see orders. 5. On deep vein thrombosis (DVT) prophylaxis (Z79.899: Other fci (current) drug therapy) SCD only. No heparin based products because of GI bleed Orders: diphenhydrAMINE, 25 mg = 1 cap(s), Cap, Oral, q6hr PRN Itching, Routine, Start date 06/18/22 23:33:00 EDT, 06/18/22 23:33:00 EDT hydrALAZINE, 10 mg = 0.5 mL, Injection, IV Push, q6hr PRN Other (see comment), Routine, Start date 06/18/22 23:33:00 EDT, 06/18/22 23:33:00 EDT ondansetron, 4 mg = 2 mL, Injection, IV Push, q6hr PRN Nausea, Routine, Start date 06/18/22 23:33:00 EDT, 06/18/22 23:33:00 EDT pantoprazole, 40 mg = 10 mL, Injection, IV Push, BID, Routine, Start date 06/19/22 9:00:00 EDT, Infuse over 2 minute(s), 06/18/22 23:32:00 EDT promethazine, 12.5 mg = 0.5 mL, Injection, IV Push, q6hr PRN Nausea, Routine, Start date 06/18/22 23:33:00 EDT, 06/18/22 23:33:00 EDT Sodium Chloride 0.9% intravenous solution 1,000 mL, 1,000 mL, IV, 75 mL/hr, Routine, Start date 06/18/22 23:33:00 EDT, 13.3 hour(s), Total volume (mL): 1,000, 92 kg, 2.24, m2 zolpidem, 5 mg = 1 tab(s), Tab, Oral, Once a day (at bedtime) PRN Sleep, Routine, Start date 06/18/22 23:31:00 EDT, 06/18/22 23:31:00 EDT ABO/Rh ABO/Rh History Check Antibody Screen Below the Knee Intermittent Pneumatic Compression Device Blood Bank ID# Cardiac Monitoring CBC w/ Indices Consult to Gastroenterology Intake and Output Notify Provider Vital Signs Notify Provider Vital Signs NPO Diet Place in Status Pulse Oximetry Resuscitation Status - Full Up ad Yuly Vital Signs Weight Weight Anticipated stay less than 2 midnights. Patient will be observation status. Extracted from: Title:ED Note Author:Martir COOMBS, Aliyah Lemus ate:06/18/22 1. Upper GI bleed (K92.2: Ga strointestinal hemorrhage, unspecified) 2. Melena (K92.1: Melena) 3. Crohn's disease, small and large intestine (K50.80: Crohn's disease of both small and large intestine without complications) 4. Anemia (D64.9: Anemia, unspecified) Orders: pantoprazole, 40 mg = 10 mL, Injection, IV Push, Once, Stop date 06/18/22 21:19:00 EDT, STAT, Start date 06/18/22 21:19:00 EDT, 06/18/22 21:19:00 EDT Sodium Chloride 0.9% intravenous solution 1,000 mL, 1,000 mL, IV, 125 mL/hr, STAT, Start date 06/18/22 21:59:00 EDT, 8 hour(s), Total volume (mL): 1,000, 92 kg, 2.24, m2 Automated Diff Basic Metabolic Panel CBC w/ Auto Diff Consult to GI CTA Abdomen and Pelvis ECG 12 Lead Adult ED Physician consult Hospitalist for continued care eGFR Extra Blue Tube NPO Diet Orthostatic Vitals Signs Stool Occult Blood Future Appointments Appointment Date:12/14/2022 09:00:00 AM Scheduled Provider:Brady HELLER MD Location:[facility] Appointment Type:[facility] Follow Up Future Scheduled Tests Laboratory* CBC w/ Auto Diff 12/27/21 [facility]03-14-2023 Evaluation note* Encounter Date Diagnosis Assessment Notes Treatment Notes Treatment Clinical Notes May, Acute non-recurrent maxillary sinusitis (ICD-10 - J01.00) Instructed to use Robitussin or Mucinex for cough, saline or Flonase NS for congestion, Tylenol for pain and fever. May, Actinic keratosis (ICD-10 - L57.0) Removed due to pre malignant characteristic [facility] Other 03-14-2023 Evaluation note* Encounter Date Diagnosis Assessment Notes Treatment Notes Treatment Clinical Notes May, Acute non-recurrent maxillary sinusitis (ICD-10 - J01.00) Instructed to use Robitussin or Mucinex for cough, saline or Flonase NS for congestion, Tylenol for pain and fever. May, Actinic keratosis (ICD-10 - L57.0) Removed due to pre malignant characteristic: - 3 lesions w/ size in range of 3-4mm in diameter [facility] Other 02-04-2023 Evaluation note* Encounter Date Diagnosis Assessment Notes Treatment Notes Treatment Clinical Notes Apr, COVID-19 (ICD-10 - U07.1) [facility] Other 07-21-2022 Hospital Discharge instructions Follow Up Care 09/30/2021 15:40:22 With:GER MALLOY, CURT Cordero, [facility] Address: [facility] [address] [place] [address] [address] [address]- When:Within 2 Month(s) [facility] [id number] History of Present illness Narrative* Patient returns for follow-up of problems as noted. In interim he is done well. Has had no arrhythmia symptomatology. Blood pressures well controlled today's denying any exercise and/or activity associated chest discomfort, dyspnea, or arrhythmia symptomatology. Device checks are reviewed and they d emonstrate episodes of supraventricular tachycardia with rates in the 150-170 range. We note also that the reports do not demonstrate the therapeutic algorithm for malignant tachyarrhythmias and after his departure I contacted the pacemaker clinic to asked him to update his record and render a more comprehensive and detailed report demonstrating not only bradycardia arrhythmia therapies but tachyarrhythmia therapies as well. * We discussed in answered a variety of other questions regarding his management of pharmacologic therapy. Additionally we reviewed, after his departure, the risk profile of his immunosuppressive therapy we believe it to be of no significant cardiac risk to him in particular. [facility] Brianda Sanon DO Work Phone: [phone] History of Present illness Narrative* Patient returns for follow-up of problems as noted. In interim he is done well. Has had no arrhythmia symptomatology. Blood pressures well controlled today's denying any exercise and/or activity associated chest discomfort, dyspnea, or arrhythmia symptomatology. Device checks are reviewed and they d emonstrate episodes of supraventricular tachycardia with rates in the 150-170 range. We note also that the reports do not demonstrate the therapeutic algorithm for malignant tachyarrhythmias and after his departure I contacted the pacemaker clinic to asked him to update his record and render a more comprehensive and detailed report demonstrating not only bradycardia arrhythmia therapies but tachyarrhythmia therapies as well. * We discussed in answered a variety of other questions regarding his management of pharmacologic therapy. Additionally we reviewed, after his departure, the risk profile of his immunosuppressive therapy we believe it to be of no significant cardiac risk to him in particular. [facility] Brianda Sanon DO Work Phone: Evaluation + Plan note Future Appointments Appointment Date:11/08/2021 12:30:00 PM Scheduled Provider: Location:[facility] Appointment Type:[facility] Evaluation + Plan note Future Appointments Appointment Date:06/15/2022 09:15:00 AM Scheduled Provider:Brady HELLER MD Location:[facility] Appointment Type:BAD Follow Up [facility] Evaluation + Plan note Future Appointments Appointment Date:12/14/2022 09:00:00 AM Scheduled Provider:Brady HELLER MD Location:[facility] Appointment Type:[facility] Follow Up Future Scheduled Tests Laboratory* CBC w/ Auto Diff 12/27/21 [facility] Evaluation noteNo assessment information available [facility] Work Phone: Evaluation noteNo [facility] [employer] Other [facility]* Diagnosis Crohn's disease of small intestine with complication (HCC) Regional enteritis of small intestine documented in this encounter [facility] note* Diagnosis Crohn's disease of small intestine with complication (HCC)- Primary Regional enteritis of small [facility] Diagnosis Crohn's disease of small intestine with complication (HCC)- Primary Regional enteritis of small intestine documented in this encounter [facility] note* Diagnosis Crohn's disease of small intestine with complication (HCC)- Primary Regional enteritis of small intestine [facility]* Diagnosis Crohn's disease of small intestine with complication (HCC)- Primary Regional enteritis of small intestine documented in this encounter [facility] note* Diagnosis Anemia, unspecified type- Primary Hypokalemia Hypopotassemia [facility] Diagnosis Hypokalemia- Primary Hypopotassemia [facility]* Diagnosis Crohn's disease of small intestine with complication (HCC) Regional enteritis of small intestine documented in this encounter [facility] note* Diagnosis 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)- Primary Regional enteritis of small intestine with large intestine documented in this encounter [facility] note* Diagnosis Crohn's disease of small intestine with complication (HCC)- Primary Regional enteritis of small intestine [facility]* Diagnosis Cardiomyopathy, unspecified type (HCC)- Primary Crohn's disease of small intestine with complication (HCC) Regional enteritis of small intestine Cardiac defibrillator in place Automatic implantable cardiac defibrillator in situ Arrhythmia, ventricular Cardiac dysrhythmia, unspecified documented in this encounter [facility]* Diagnosis Crohn's disease of small intestine with complication (HCC) Regional enteritis of small intestine 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 [facility] Diagnosis 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) Regional enteritis of small intestine with large intestine documented in this encounter [facility]* Diagnosis Cardiomyopathy, unspecified type (HCC) documented in this encounter [facility] note* Diagnosis SVT (supraventricular tachycardia) (HCC)- Primary Other specified cardiac dysrhythmias documented in this encounter [facility] note* Diagnosis SVT (supraventricular tachycardia) (HCC)- Primary Other specified cardiac dysrhythmias documented in this encounter [facility] note* Diagnosis Crohn's disease of small and large intestines with complication (HCC)- Primary documented in this encounter [facility] note* Diagnosis Cardiomyopathy, unspecified type (HCC)- Primary documented in this encounter [facility] note* Diagnosis Crohn's disease of small and large intestines with complication (HCC)- Primary documented in this encounter [facility] note* Diagnosis Hypokalemia- Primary Hypopotassemia documented in this encounter [facility] note* Diagnosis Crohn's disease of small and large intestines with complication (HCC)- Primary documented in this encounter [facility] note* Diagnosis Cardiomyopathy, unspecified type (HCC)- Primary documented in this encounter [facility] note* Diagnosis Crohn's disease of small and large intestines with complication (HCC)- Primary documented in this encounter [facility] note* Diagnosis Crohn's disease of small and large intestines with complication (HCC) documented in this encounter [facility] note* Diagnosis Infection in abdomen (HCC)- Primary Unspecified peritonitis documented in this encounter [facility] note* Diagnosis Crohn's disease of small and large intestines with complication (HCC)- Primary documented in this encounter [facility] note* Diagnosis Crohn's disease of small and large intestines with complication (HCC)- Primary documented in this encounter [facility] note* Diagnosis Encounter for screening for cardiovascular disorders- Primary Screening for other and unspecified cardiovascular conditions Essential hypertension Unspecified essential hypertension Cardiomyopathy, unspecified type (HCC) documented in this encounter [facility] note* Diagnosis ICD (implantable cardioverter-defibrillator) in place- Primary Automatic implantable cardiac defibrillator in situ SVT (supraventricular tachycardia) (HCC) Other specified cardiac dysrhythmias Non-ischemic cardiomyopathy (HCC) Other primary cardiomyopathies Palpitation Palpitations documented in this encounter [facility] note* Diagnosis APPOINTMENT CANCELLED- Primary documented in this encounter [facility] note* Diagnosis Cardiomyopathy, unspecified type (HCC) [facility] Diagnosis Crohn's disease with complication, unspecified gastrointestinal tract location (HCC)- [facility] Diagnosis Cardiomyopathy, unspecified type (HCC) [facility] Diagnosis Cardiomyopathy, unspecified type (HCC) documented [facility] this [facility]* Diagnosis Pure hyperglyceridemia- Primary [facility] Diagnosis Crohn's disease of small and large intestines with complication (HCC)- Primary [facility] Diagnosis Cardiomyopathy, unspecified type (HCC) documented [facility] this [facility]* Diagnosis Crohn's disease of small and large intestines with complication (HCC)- Primary [facility] Diagnosis Cervicalgia- Primary Balance disorder documented in this encounter [facility]* Diagnosis Crohn's disease of small intestine with complication (HCC)- Primary Regional enteritis of small intestine [facility] this [facility]* Diagnosis Seborrheic keratosis Lentigines Melanocytic nevus of trunk Benign neoplasm of skin of trunk, except scrotum Personal history of other malignant neoplasm of skin Optional surgery Unspecified elective surgery for purposes other than remedying health states documented in this encounter [facility]* Diagnosis Cervicalgia- Primary Balance disorder documented in this encounter [facility]* Diagnosis Crohn's disease of small and large intestines with complication (HCC) [facility] Diagnosis Encounter for screening for cardiovascular disorders Screening for other and unspecified cardiovascular conditions [facility] Diagnosis Encounter for screening for cardiovascular disorders- Primary Screening for other and unspecified cardiovascular conditions documented [facility] this [facility] Diagnosis Encounter for screening for cardiovascular disorders Screening for other and unspecified cardiovascular conditions [facility] Diagnosis Crohn's disease of small and large intestines with complication (HCC)- Primary [facility] Diagnosis Encounter for screening for cardiovascular disorders- Primary Screening for other and unspecified cardiovascular conditions [facility] Diagnosis Sebaceous hyperplasia Inflamed seborrheic keratosis documented in this encounter [facility]* Diagnosis Balance disorder- Primary Cervicalgia [facility] Diagnosis Sebaceous hyperplasia Inflamed seborrheic keratosis Acne vulgaris Other acne [facility] Diagnosis Sebaceous hyperplasia- Primary Inflamed seborrheic keratosis Neoplasm of unspecified behavior of bone, soft tissue, and skin [facility] Diagnosis Crohn's disease of small and large intestines with complication (HCC)- Primary [facility]* Diagnosis Neoplasm of unspecified behavior of bone, soft tissue, and skin- Primary Inflamed seborrheic keratosis Surgery, elective Unspecified elective surgery for purposes other than remedying health states [facility] Diagnosis Hypokalemia- Primary Hypopotassemia documented in this encounter [facility]* Diagnosis Coronary artery calcification- Primary Coronary atherosclerosis of unspecified type of vessel, [place] or graft Aortic root dilation Thoracic aortic ectasia [facility]* Diagnosis Crohn's disease of small and large intestines with complication (HCC) documented in this encounter [facility]* Diagnosis Crohn's disease of small and large intestines with complication (HCC)- Primary documented in this encounter [facility]* Diagnosis Lung nodule- Primary Solitary pulmonary nodule documented in this encounter [facility]* Diagnosis Lung nodules- Primary Other nonspecific abnormal finding of lung field documented in this encounter [facility]* Diagnosis Crohn's disease with complication, unspecified gastrointestinal tract location (HCC)- Primary 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) Hypokalemia Hypopotassemia documented in this encounter [facility]* Diagnosis Crohn's disease with complication, unspecified gastrointestinal tract location (HCC)- Primary Diarrhea, unspecified type documented in this encounter [facility]* Diagnosis S/P implantation of automatic cardioverter/defibrillator (AICD)- Primary Automatic implantable cardiac defibrillator in situ ICD (implantable cardioverter-defibrillator) in place Automatic implantable cardiac defibrillator in situ documented [facility] this encounter [facility]* Diagnosis 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)- Primary Regional enteritis of small intestine with large intestine documented [facility] this [facility]* Diagnosis Crohn's disease of small intestine with complication (HCC)- Primary Regional enteritis of small intestine [facility] Diagnosis Lung nodule- Primary Solitary pulmonary nodule documented [facility] this [facility]* Diagnosis 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)- Primary Regional enteritis of small intestine with large intestine documented [facility] this encounter [facility]* Diagnosis Onset Date Resolution Status Admit Date At risk for infection due to immunosuppression acute September 04 1:48pm Superficial ulcer of skin acute September 04, 2024 1:48pm [facility] Work Phone: Evaluation note* Diagnosis Crohn's disease with complication, unspecified gastrointestinal tract location (HCC)- Primary Crohn's disease of small and large intestines with complication (HCC) documented in this encounter [facility]* Diagnosis 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) Regional enteritis of small intestine with large intestine documented [facility] Diagnosis Crohn's disease with complication, unspecified gastrointestinal tract location (HCC) documented in this encounter [facility]* Diagnosis Lung nodule- Primary Solitary pulmonary nodule [facility] Diagnosis Lung nodules Other nonspecific abnormal finding of lung field [facility] Diagnosis Prostate cancer screening- Primary Special screening for malignant neoplasm of prostate Screening for genitourinary condition Screening for other and unspecified genitourinary condition documented in this encounter [facility]* Diagnosis Prostate cancer screening- Primary Special screening for malignant neoplasm of prostate Encounter for observation for other suspected diseases and conditions ruled out documented in this encounter [facility]* Diagnosis Prostate cancer screening- Primary Special screening for malignant neoplasm of prostate Screening for genitourinary condition Screening for other and unspecified genitourinary condition Screening for genitourinary condition Screening for other and unspecified genitourinary condition documented in this [facility]* Diagnosis Cardiomyopathy, unspecified type (HCC) documented in this encounter [facility]* Diagnosis Acne vulgaris- Primary Other acne Seborrheic keratosis Lentigines Melanocytic nevus of trunk Benign neoplasm of skin of trunk, except scrotum Seborrheic keratosis, inflamed [facility]* Diagnosis Crohn's disease of small intestine with complication (HCC) Regional enteritis of small intestine documented in this encounter [facility] Narrative - Reported* Type Description Date Medical History High blood pressure Medical History Crohns Medical History inflamed seborrheic keratosis Medical History ventricular fibrillation Medical History hypomagnesemia Medical History nonischemic cardiomyopathy Medical History lumbar spondylosis Medical History generalized anxiety disorder Medical History essential hypertension Medical History covid Medical History hypokalemia Medical History other viral warts Surgical History 6 BOWEL RESECTIONS Surgical History lumbar surgery Surgical History cardiac catheterization left he art [employer] Other [employer] general Narrative - Reported* Type Description Date Medical History High blood pressure Medical History Crohns Medical History inflamed seborrheic keratosis Medical History ventricular fibrillation Medical History hypomagnesemia Medical History nonischemic cardiomyopathy Medical History lumbar spondylosis Medical History generalized anxiety disorder Medical History essential hypertension Medical History covid Medical History hypokalemia Medical History other viral warts Surgical History 6 BOWEL RESECTIONS Surgical History lumbar surgery Surgical History cardiac catheterization left he art Hospitalization History see surgical history [employer] Other [employer] general Narrative - Reported* Type Description Date Medical History High blood pressure Medical History Crohns Medical History inflamed seborrheic keratosis Medical History ventricular fibrillation Medical History hypomagnesemia Medical History nonischemic cardiomyopathy Medical History lumbar spondylosis Medical History generalized anxiety disorder Medical History essential hypertension Medical History covid Medical History hypokalemia Medical History other viral warts Surgical History 6 BOWEL RESECTIONS Surgical History lumbar surgery Surgical History cardiac catheterization left he art Surgical History EGD w/ cauterization of gastric ulcerations 06/2022 Hospitalization History see surgical history [employer] Other [employer] Narrative - Reported* Type Description Date Medical History High blood pressure Medical History Crohns Medical History inflamed seborrheic keratosis Medical History ventricular fibrillation Medical History hypomagnesemia Medical History nonischemic cardiomyopathy Medical History lumbar spondylosis Medical History generalized anxiety disorder Medical History essential hypertension Medical History covid Medical History hypokalemia Medical History other viral warts Medical History SMA pseudoaneurysm rupture, 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 Medical History Hemorrhagic shock 06/2022 Surgical History 6 BOWEL RESECTIONS Surgical History lumbar surgery Surgical History cardiac catheterization left he art Surgical History EGD w/ cauterization of gastric ulcerations 06/2022 Hospitalization History see surgical history [employer] Other History general Narrative - Reported* Type Description Date Medical History High blood pressure Medical History Crohns Medical History inflamed seborrheic keratosis Medical History ventricular fibrillation Medical History hypomagnesemia Medical History nonischemic cardiomyopathy Medical History lumbar spondylosis Medical History generalized anxiety disorder Medical History essential hypertension Medical History covid Medical History hypokalemia Medical History other viral warts Medical History SMA pseudoaneurysm rupture, 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 He is done well. He has had no arrhythmia symptomatologyand he denies orthopnea PND dyspnea exertion palpitation or chest pain. Management of blood pressure appears acceptable and actually we discussed a reduction in his pharmacologic management because of the control that he is achieved with diet lifestyle modification and exercise because of this dosage reduction will be employed. * ICD device checks are reviewed and found to be satisfactory. We did advocate the merits of a modestdiet and losing several pounds. He was congratulated on his lifestyle accomplishments and encouraged to continue otherwise as before and follow-up next year. [facility] [address] DO Work Phone: Hospital course Narrative No data available for this section [facility] Discharge instructions No data available for this section [facility] Progress note No data available for this section [facility] Reason for referral (narrative)* Diagnostic Procedure Only (Routine) - Authorized Specialty Diagnoses / Procedures Referred By Contac t Referred To Contact XR IMAGING Diagnoses 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) Procedures XR SMALL BOWEL SERIES RADIOLOGIC EXAM SMALL INT SINGLE CONTRAST STUDY Juan Mccrary MD [address] [place] [id number] Xr Imaging Referral ID Status Reason Start Date Expiration Date Visits Requested Visits Authorized [id number] Authorized Auto-Generat ed Referral 10/10/2022 11/09/2023 1 1 [facility] for referral (narrative)* Diagnostic Procedure Only (Routine) - Closed Specialty Diagnoses / Procedures Referred By Contac t Referred To Contact XR IMAGING Diagnoses 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) Procedures XR SMALL BOWEL SERIES RADIOLOGIC EXAM SMALL INT SINGLE CONTRAST STUDY Juan Mccrary MD [address] [place] [address] Xr Imaging [place] [address] Referral ID Status Reason Start Date Expiration Date V isits Requested Visits Authorized [id number] Closed Auto-Generate d Referral 10/10/2022 11/09/2023 1 1 T [facility] for referral (narrative)* Outpatient Procedure (Routine) - Authorized Specialty Diagnoses / Procedures Referred By Contac t Referred To Contact [facility] Diagnoses SVT (supraventricular tachycardia) (HCC) Procedures ECG COMPLETE ECG ROUTINE ECG W/LEAST 12 LDS W/I&R Dread Fay MD [address] [place] [address] [facility] [place] [address] Referral ID Status Reason Start Date Expiration Date Visits Requested Visits Authorized [id number] Authorized Auto-Generat ed Referral 12/01/2022 12/01/2023 1 1 [facility] for referral (narrative)* Outpatient Procedure (Routine) - Authorized Specialty Diagnoses / Procedures Referred By Contac t Referred To Contact [facility] Diagnoses Cardiomyopathy, unspecified type (HCC) Procedures ECHO ECHO TTHRC R-T 2D W/WOM-MODE COMPL SPEC&COLR D Damir Witt MD [address] [place] [address] [place] [address] Referral ID Status Reason Start Date Expiration Date Visits Requested Visits Authorized [id number] Authorized Auto-Generat ed Referral 07/24/2023 01/23/2024 1 1 * Transition of Care (Routine) - Ref Not Required Specialty Diagnoses / Procedures Referred By Contac t Referred To Contact Diagnoses Cardiomyopathy, unspecified type (HCC) Procedures CARDIOVASCULAR MEDICINE OP [place] [address] [place] [address] Referral ID Status Reason Start Date Expiration Date Visits Requested Visits Authorized [id number] Ref Not Required PCP Requested Referral 07/24/2023 01/23/2024 1 1 [facility] for referral (narrative)* Outpatient Procedure (Routine) - Authorized Specialty Diagnoses / Procedures Referred By Contjessica t Referred To Contact [facility] Diagnoses Cardiomyopathy, unspecified type (HCC) Procedures ECG COMPLETE ECG ROUTINE ECG W/LEAST 12 LDS W/I&R Dread Fay MD [facility] [place] [address] [facility] [place] [address] Referral ID Status Reason Start Date Expiration Date Visits Requested Visits Authorized [id number] Authorized Auto-Generat ed Referral 05/17/2023 05/16/2024 1 1 [facility] for referral (narrative)No [facility] for [facility]: Reason for visit Narrative* Rehabilitation - Outpatient (Routine) - Authorized Specialty Diagnoses / Procedures Referred By Contjessica t Referred To Contact Physical Therapy Diagnoses Dizziness and giddiness Procedures ID PHYSICAL THERAPY EVALUATION LOW COMPLEX 20 MINS Delmis Horn MD [address] [facility] [place] [address] Phone: tel: fax: Edgardo Ramey, PT [address] [place] [address] Phone: tel: fax: Referral ID Status Reason Start Date Expiration Date Visits Requested Visits Authorized [id number] Authorized Consult and Treat 11/28/2023 01/26/2024 5 5 [facility] for visit Narrative* MRI/CT (Routine) - Closed Specialty Diagnoses / Procedures [facility] Diagnoses Crohn's disease of small and large intestines with complication (HCC) Procedures CT ENTEROGRAPHY W IVCON CT ABD & PELVIS W/CONTRAST Jay Paul MD, PhD [address] [place] [address] Phone: tel: fax: CT IMAGING [place] [address] Referral ID Status Reason Start Date Expiration Date V isits Requested Visits Authorized [id number] Closed Auto-Generate d Referral 05/02/2024 06/01/2025 1 1 [facility] for visit Narrative* MRI/CT (Routine) - Closed Specialty Diagnoses / Procedures [facility] Referred To Contact CT IMAGING Diagnoses Crohn's disease of small and large intestines with complication (HCC) Procedures CT ENTEROGRAPHY W IVCON CT ABD & PELVIS W/CONTRAST Jay Paul MD, PhD [address] [place] [address] Phone: tel: fax: CT IMAGING [place] [address] Referral ID Status Reason Start Date Expiration Date V isits Requested Visits Authorized [id number] Closed Auto-Generate d Referral 05/02/2024 06/01/2025 1 1 [facility] for visit Narrative* [place] Prior Authorization (Routine) - Authorized Specialty Diagnoses / Procedures [facility] Referred To Contact Diagnoses 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) Procedures INJECTION, VEDOLIZUMAB Jay Paul MD, PhD [address] [place] [address] Phone: tel: fax: Jay Paul MD, PhD [address] [place] [address] Phone: tel: fax: Referral ID Status Reason Start Date Expiration Date V isits Requested Visits Authorized [id number] Authorized 07/31/2024 09/20/2024 2 2 [facility] Summary Purpose Family History Unknown Family Member Name Dates Details Family history of myocardial infarction: Father(V17.3, Z82.49) Status:Active Family history of malignant neoplasm: Mother(V16.9, Z80.9) Status:Active Family history of diabetes m ellitus: Mother(V18.0, Z83.3) Status:Active Unknown Family Member Name Dates Details Family history of diabetes m ellitus: Mother(V18.0, Z83.3) Status:Active Family history of malignant neoplasm: Mother(V16.9, Z80.9) Status:Active Family history of myocardial infarction: Father(V17.3, Z82.49) Status:Active Unknown Family Member Name Dates Details Family history of myocardial infarction: Father(V17.3, Z82.49) Status:Active Family history of malignant neoplasm: Mother(V16.9, Z80.9) Status:Active Family history of diabetes m ellitus: Mother(V18.0, Z83.3) Status:Active Unknown Family Member Name Dates Details Family history of diabetes m ellitus: Mother(V18.0, Z83.3) Status:Active Family history of malignant neoplasm: Mother(V16.9, Z80.9) Status:Active Family history of myocardial infarction: Father(V17.3, Z82.49) Status:Active Unknown Family Member Name Dates Details Family history of myocardial infarction: Father(V17.3, Z82.49) Status:Active Family history of malignant neoplasm: Mother(V16.9, Z80.9) Status:Active Family history of diabetes m ellitus: Mother(V18.0, Z83.3) Status:Active Relationship Condition Age at Onset Recorded Date/T sally father Unknown Heart disease Unknown family member Unknown mother Unknown Diabetes mellitus Unknown son Family history of mental disorder Unknown Advance Directives Advance Directive Response Recorded Date/ Time Advance Directives No November 07, 2016 3:03pm Advance Directive Response Recorded Date/ Time Advance Directives No November 07, 2016 2:03pm Latest Code Status on File Code Status Date Activated Date Inactivated Comments Full Code 06/21/2022 4:17 PM 06/26/2022 9:41 PM Full Code Order Discussed With: Patient Latest Code Status on File Code Status Date Activated Date Inactivated Comments Full Code 06/21/2022 4:17 PM 06/26/2022 9:41 PM Question Answer Comments Full Code Order Discussed With: Patient Latest Code Status on File Code Status Date Activated Date Inactivated Comments Full Code 06/21/2022 4:17 PM 06/26/2022 9:41 PM Question Answer Comments Full Code Order Discussed With: Patient Date Activated Date Inactivated Comments 06/21/2022 4:17 PM 06/26/2022 9:41 PM Question Answer Comments Full Code Order Discussed With: Patient Date Activated Date Inactivated Comments 06/21/2022 4:17 PM 06/26/2022 9:41 PM Question Answer Comments Full Code Order Discussed With: Patient Advance Directive Response Recorded Date/ Time Advance Directives No October 19 1:22pm Hospital Course Note MR#: [id number] [facility] Pt. Name: José Miguel Carreno Jr Admitted: 01/05/2020 Discharged: 01/10/2020 Date of : 1960 Physician: Priscilla Quiroz MD DISCHARGE SUMMARY PRINCIPLE DIAGNOSES: 1. VFib arrest. 2. Electrolyte abnormalities in particular hypomagnesemia as well as hypokalemia. 3. Status post AICD. SECONDARY DIAGNOSES: Crohn disease and hypertension. IMAGINGS AND PROCEDURES: The patient had a single coil ICD Biotronik was placed on 01/09/2020. The patient had also cardiac MRI, which showed no MRI soft tissue finding to suggest arrhythmogenic right ventricular cardiomyopathy. There was comment of mildly diminished left ventricular systolic function with mild septal predominant left ventricular hypertrophy. HOSPITAL COURSE: Again, the patient was admitted after VFib arrest to our facility and the patient had initially coronary angiogram and cardiac cath, which showed basically normal coronaries and subsequently cardiac MRI was done also was normal. Electro (more content not included)... Chief Complaint JOSÉ MIGUEL CARRENO is being seen for a 9 month follow-up of.JOSÉ MIGUEL TEA is being seen for a 9 month follow-up of.JOSÉ MIGUEL CARRENO is being seen for a 9 month follow-up of. Chief Complaint and Reason for Visit Chief Complaint i46.9 z95.810 Chief Complaint Admit Date L Leg Wound September 04, 2024 1:48 pm Reason for Visit Admit Date At risk for infection due to immunosuppr ession September 04, 2024 1:48pm Superficial ulcer of skin September 04 1:48pm Reason for Referral Specialty Diagnoses / Procedures Referred By Contac t Referred To Contact CT IMAGING Diagnoses Encounter for screening for cardiovascular disorders Procedures CT CALCIUM SCORING (CARDIAC) WO IVCON CT HEART NO CONTRAST QUANT EVAL CORONRY CALCIUM Damir Witt MD [address] [place] [address] Ct Imaging [place] [address] Referral ID Status Reason Start Date Expiration Date Visits Requested Visits Authorized [id number] Authorized Auto-Generat ed Referral 02/01/2025 1 1 Specialty Diagnoses / Procedures Referred By Contac t Referred To Contact Diagnoses Pure hyperglyceridemia Procedures CONSULT TO PREVENTIVE CARD OFFICE/OUTPATIENT [facility] 60 MINUTES Damir Witt MD [facility] [place] [address] Referral ID Status Reason Start Date Expiration Date Visits Requested Visits Authorized [id number] Authorized PCP Requested Referral 10/17/2023 10/16/2024 1 1 Specialty Diagnoses / Procedures Referred By Contac t [facility] Diagnoses SVT (supraventricular tachycardia) (HCC) Non-ischemic cardiomyopathy (HCC) ICD (implantable cardioverter-defibrillator ) in place Palpitation Procedures CARDIOVASCULAR MEDICINE OP FOLLOW UP APPT ORDER Dread Fay MD [address] [place] [address] [place] [address] Referral ID Status Reason Start Date Expiration Date Visits Requested Visits Authorized [id number] Ref Not Required PCP Requested Referral 07/31/2023 07/30/2024 1 1 Specialty Diagnoses / Procedures Referred By Contac t Ref[facility] Diagnoses Encounter for screening for cardiovascular disorders Essential hypertension Cardiomyopathy, unspecified type (HCC) Procedures CARDIOVASCULAR MEDICINE OP FOLLOW UP APPT ORDER Damir Witt MD [address] [place] [address] [place] [address] Referral ID Status Reason Start Date Expiration Date Visits Requested Visits Authorized [id number] Ref Not Required PCP Requested Referral 04/26/2024 07/25/2024 1 1 Specialty Diagnoses / Procedures Referred By Contac t Referred To Contact CT IMAGING Diagnoses Infection in abdomen (HCC) Procedures CT ABD/PEL W IVCON CT ABD & PELVIS W/CONTRAST Jay Paul MD, PhD [id number] Imaging [place] [address] Referral ID Status Reason Start Date Expiration Date Visits Requested Visits Authorized [id number] Pending Review Auto-Generat ed Referral 2023 07/12/2024 1 1 Specialty Diagnoses / Procedures Referred By Contac t Referred To Contact CT IMAGING Diagnoses Crohn's disease of small and large intestines with complication (HCC) Procedures CT ENTEROGRAPHY W IVCON CT ABD & PELVIS W/CONTRAST Jay Paul MD, PhD [address] [place] [address] Ct Imaging [place] [address] Referral ID Status Reason Start Date Expiration Date Visits Requested Visits Authorized [id number] Pending Review Auto-Generat ed Referral 04/26/2023 05/25/2024 1 1 Specialty Diagnoses / Procedures Referred By Contac t Referred To Contact Diagnoses SVT (supraventricular tachycardia) ([facility]) Procedures CONSULT TO ELECTROPHYSIOLOGY OFFICE/OUTPATIENT [facility] MDM 60-74 MINUTES Damir Witt MD [address] [id number] Referral ID Status Reason Start Date Expiration Date Visits Requested Visits Authorized [id number] Authorized PCP Requested Referral 11/29/2022 11/29/2023 1 1 Specialty Diagnoses / Procedures Referred By Loi t Referred To Contact Jay Paul MD, PhD [address] [place] [address] Referral ID Status Reason Start Date Expiration Date V isits Requested Visits Authorized [id number] Pending Review 1 1 Additional Source Comments (unrecognized sect ion and content) No Status Records FoundNo Status Records FoundNo Status Records FoundNo Status Records FoundNo Status Records FoundNo Status Records FoundNo Status Records FoundNo Status Records FoundNo Status Records FoundNo Status Records FoundNo Status Records Found INFORMATION SOURCE (unrecogn ized section and content) DATE CREATED AUTHOR 09/14/2017 [facility] DATE CREATED AUTHOR AUTHOR'S ORGANIZ ATION 01/31/2020 [facility] DATE CREATED AUTHOR AUTHOR'S ORGANIZ ATION 02/10/2022 [employer] DATE CREATED AUTHOR AUTHOR'S ORGANIZ ATION 04/12/2022 [facility] DATE CREATED AUTHOR AUTHOR'S ORGANIZ ATION 06/25/2022 [facility] DATE CREATED AUTHOR AUTHOR'S ORGANIZ ATION 06/25/2022 [facility] DATE CREATED AUTHOR AUTHOR'S ORGANIZ ATION 06/26/2022 [facility] DATE CREATED AUTHOR AUTHOR'S ORGANIZ ATION 09/28/2022 [facility] DATE CREATED AUTHOR AUTHOR'S ORGANIZ ATION 12/16/2022 [facility] DATE CREATED AUTHOR AUTHOR'S ORGANIZ ATION 11/10/2024 [facility] DATE CREATED AUTHOR AUTHOR'S ORGANIZ ATION 11/16/2024 [facility] EPIC Care Team (unrecognized sect ion and content) Team Status: Active Member Role Status Dates Delmis Horn DO Primary Care Provider Active Team Status: Inactive Member Role Status Dates Delmis Horn DO Primary Care Provider Active Eloise Culver MD Attending Provider Active [employer] Specialist Relationship Specialty Start Date End Date Shade Horn [address] [place] [address] PCP - General 06/22/00 [employer] Specialist Relationship Specialty Start Date End Date Shade Horn [address] [facility] [place] [place] [address] PCP - General 06/22/00 [employer] Specialist Relationship Specialty Start Date End Date Shade Horn [address] [facility] [place] [address] PCP - General 06/22/00 [employer] Specialist Relationship Specialty Start Date End Date Shade Horn [address] [facility] [place] [address] PCP - General 06/22/00 [employer] Specialist Relationship Specialty Start Date End Date Shade Horn [address] [place] [facility] [place] [address] PCP - General 06/22/00 [employer] Specialist Relationship Specialty Start Date End Date Shade Horn [address] [facility] [place] [address] PCP - General 06/22/00 [employer] Specialist Relationship Specialty Start Date End Date Shade Horn [address] [facility] [place] [address] PCP - General 06/22/00 [employer] Specialist Relationship Specialty Start Date End Date Shade Horn [address] [place] [place] [address] PCP - General 06/22/00 [employer] Specialist Relationship Specialty Start Date End Date Justina Shade Lam [address] [facility] [place] [address] PCP - General 06/22/00 [employer] Specialist Relationship Specialty Start Date End Date Shade Horn [address] [facility] [place] [address] PCP - General 06/22/00 [employer] Specialist Relationship Specialty Start Date End Date Shdae Horn [address] [facility] [place] [address] PCP - General 06/22/00 [employer] Specialist Relationship Specialty Start Date End Date Shade Horn [address] [place] [address] PCP - General 06/22/00 [employer] Specialist Relationship Specialty Start Date End Date Shade Horn [address] [place] [address] PCP - General 06/22/00 [employer] Specialist Relationship Specialty Start Date End Date Shade Horn [address] [place] [address] PCP - General 06/22/00 [employer] Specialist Relationship Specialty Start Date End Date Shade Horn [address] [place] [address] PCP - General 06/22/00 [employer] Specialist Relationship Specialty Start Date End Date Shade Horn [address] [facility] [place] [address] PCP - General 06/22/00 [employer] Specialist Relationship Specialty Start Date End Date Shade Horn [address] [place] [address] PCP - General 06/22/00 [employer] Specialist Relationship Specialty Start Date End Date Shade Horn [address] [place] [address] PCP - General 06/22/00 [employer] Specialist Relationship Specialty Start Date End Date Shade Horn [address] [place] [address] PCP - General 06/22/00 [employer] Specialist Relationship Specialty Start Date End Date Shade Horn [address] [place] [address] PCP - General 06/22/00 [employer] Specialist Relationship Specialty Start Date End Date Shade Horn [address] [place] [address] PCP - General 06/22/00 [employer] Specialist Relationship Specialty Start Date End Date Shade Horn [address] [place] [address] PCP - General 06/22/00 [employer] Specialist Relationship Specialty Start Date End Date Shade Horn [address] [place] [address] PCP - General 06/22/00 Damir Witt MD [address] [place] [address] Primary Staff Physician Cardiology 12/13/22 [employer] Specialist Relationship Specialty Start Date End Date Shade Horn Lam [address] [place] [address] PCP - General 06/22/00 Damir Witt MD [address] [place], [place] [id number] Primary Staff Physician Cardiology 12/13/22 [employer] Specialist Relationship Specialty Start Date End Date Shade Horn [address] [place] [address] PCP - General 06/22/00 Damir Witt MD [address] [place] [address] Primary Staff Physician Cardiology 12/13/22 [employer] Specialist Relationship Specialty Start Date End Date Shade Hornmond [address] [place] [address] PCP - General 06/22/00 Damir Witt MD [address] [place] [address] Primary Staff Physician Cardiology 12/13/22 [employer] Specialist Relationship Specialty Start Date End Date Shade Horn Lam [address] [place] [address] PCP - General 06/22/00 Damir Witt MD [address] [place] [address] Primary Staff Physician Cardiology 12/13/22 [employer] Specialist Relationship Specialty Start Date End Date Justina Shade Lam [address] [place] [address] PCP - General 06/22/00 Damir Witt MD [address] [place] [address] Primary Staff Physician Cardiology 12/13/22 [employer] Specialist Relationship Specialty Start Date End Date Shade Horn Lam [address] [place] [address] PCP - General 06/22/00 Damir Witt MD [address] [place] [address] Primary Staff Physician Cardiology 12/13/22 [employer] Specialist Relationship Specialty Start Date End Date Cristina Hornodore Lam [address] [place] [address] PCP - General 06/22/00 Damir Witt MD [address] [place] [address] Primary Staff Physician Cardiology 12/13/22 [employer] Specialist Relationship Specialty Start Date End Date Shade Horn [address] [place] [address] PCP - General 06/22/00 Damir Witt MD [address] [place] [address] Primary Staff Physician Cardiology 12/13/22 [employer] Specialist Relationship Specialty Start Date End Date JustinaShade [address] [place] [address] PCP - General 06/22/00 Damir Witt MD [address] [place] [address] Primary Staff Physician Cardiology 12/13/22 [employer] Specialist Relationship Specialty Start Date End Date Shade Horn [address] [place] [address] PCP - General 06/22/00 Damir Witt MD [address] [place] [address] Primary Staff Physician Cardiology 12/13/22 [employer] Specialist Relationship Specialty Start Date End Date Shade Horn [address] [place] [id number] PCP - General 06/22/00 Damir Witt MD [address] [place] [address] Primary Staff Physician Cardiology 12/13/22 [employer] Specialist Relationship Specialty Start Date End Date Shade Horn [address] [place] [id number] PCP - General 06/22/00 Damir Witt MD [address] [place] [address] Primary Staff Physician Cardiology 12/13/22 [employer] Specialist Relationship Specialty Start Date End Date Shade Horn [address] [place] [address] PCP - General 06/22/00 Damir Witt MD [address] [place] [address] Primary Staff Physician Cardiology 12/13/22 [employer] Specialist Relationship Specialty Start Date End Date Shade Horn [address] [place] [address] PCP - General 06/22/00 Damir Witt MD [address] [place] [address] Primary Staff Physician Cardiology 12/13/22 [employer] Specialist Relationship Specialty Start Date End Date Shade Horn Lam [address] [place] [id number] PCP - General 06/22/00 Damir Witt MD [address] [place] [address] Primary Staff Physician Cardiology 12/13/22 [employer] Specialist Relationship Specialty Start Date End Date Cristina Hornodore Lam [address] [place] [id number] PCP - General 06/22/00 Damir Witt MD [address] [place] [address] Primary Staff Physician Cardiology 12/13/22 [employer] Specialist Relationship Specialty Start Date End Date Cristina Hornjodie Roca [address] [place] [address] PCP - General 06/22/00 Damir Witt MD [address] [place] [address] Primary Staff Physician Cardiology 12/13/22 [employer] Specialist Relationship Specialty Start Date End Date JustinaShade [address] [place] [address] PCP - General 06/22/00 Damir Witt MD [address] [place] [address] Primary Staff Physician Cardiology 12/13/22 [employer] Specialist Relationship Specialty Start Date End Date Shade Horn [address] [place] [address] PCP - General 06/22/00 Damir Witt MD [address] [place] [address] Primary Staff Physician Cardiology 12/13/22 [employer] Specialist Relationship Specialty Start Date End Date Shade Horn [address] [place] [address] PCP - General 06/22/00 Damir Witt MD [address] [place] [address] Primary Staff Physician Cardiology 12/13/22 [employer] Specialist Relationship Specialty Start Date End Date Delmis Horn MD [address] [place] [address] PCP - General Internal Medicine 09/19/22 [employer] Specialist Relationship Specialty Start Date End Date Delmis Horn MD [address] [place] [address] PCP - General Internal Medicine 09/19/22 [employer] Specialist Relationship Specialty Start Date End Date Shade Horn [address] [place] [address] PCP - General 06/22/00 Damir Witt MD [address] [place] [address] Primary Staff Physician Cardiology 12/13/22 [employer] Specialist Relationship Specialty Start Date End Date Delmis Horn MD [address] [facility] [place] [address] PCP - General Internal Medicine 09/19/22 [employer] Specialist Relationship Specialty Start Date End Date Delmis Horn MD [address] [facility] [place] [address] PCP - General Internal Medicine 09/19/22 [employer] Specialist Relationship Specialty Start Date End Date Delmis Horn MD [address] [facility] [place] [address] PCP - General Internal Medicine 09/19/22 [employer] Specialist Relationship Specialty Start Date End Date Shade Horn [address] [facility] [place] [address] PCP - General 06/22/00 Damir Witt MD [address] [place] [address] Primary Staff Physician Cardiology 12/13/22 [employer] Specialist Relationship Specialty Start Date End Date Shade Horn [address] [facility] [place] [address] PCP - General 06/22/00 Damir Witt MD [address] [place] [address] Primary Staff Physician Cardiology 12/13/22 [employer] Specialist Relationship Specialty Start Date End Date Shade Horn [address] [facility] [place] [address] PCP - General 06/22/00 Damir Witt MD [address] [place] [address] Primary Staff Physician Cardiology 12/13/22 [employer] Specialist Relationship Specialty Start Date End Date Delmis Horn MD [address] [facility] [place] [address] PCP - General Internal Medicine 09/19/22 [employer] Specialist Relationship Specialty Start Date End Date Delmis Horn MD [address] [facility] [place] [address] PCP - General Internal Medicine 09/19/22 [employer] Specialist Relationship Specialty Start Date End Date Delmis Horn MD [address] [facility] [place] [address] PCP - General Internal Medicine 09/19/22 [employer] Specialist Relationship Specialty Start Date End Date Delmis Horn MD [address] [facility] [place] [address] PCP - General Internal Medicine 09/19/22 [employer] Specialist Relationship Specialty Start Date End Date Delmis Horn MD [address] [facility] [place] [address] PCP - General Internal Medicine 09/19/22 [employer] Specialist Relationship Specialty Start Date End Date Shade Horn [address] [facility] [place], [place] [address] PCP - General 06/22/00 Damir Witt MD [address] [place] [address] Primary Staff Physician Cardiology 12/13/22 [employer] Specialist Relationship Specialty Start Date End Date Delmis Horn MD [address] [place] [address] PCP - General Internal Medicine 09/19/22 [employer] Specialist Relationship Specialty Start Date End Date Delmis Horn MD [address] [place] [address] PCP - General Internal Medicine 09/19/22 [employer] Specialist Relationship Specialty Start Date End Date Shade Horn [address] [id number] PCP - General 06/22/00 Damir Witt MD [address] [place] [address] Primary Staff Physician Cardiology 12/13/22 [employer] Specialist Relationship Specialty Start Date End Date Shade Horn [address] [id number] PCP - General 06/22/00 Damir Witt MD [address] [place] [address] Primary Staff Physician Cardiology 12/13/22 [employer] Specialist Relationship Specialty Start Date End Date Shade Horn [address] [place] [address] PCP - General 06/22/00 Damir Witt MD [address] [place] [address] Primary Staff Physician Cardiology 12/13/22 [employer] Specialist Relationship Specialty Start Date End Date Shade Horn [address] [place] [address] PCP - General 06/22/00 Damir Witt MD [address] [place] [address] Primary Staff Physician Cardiology 12/13/22 [employer] Specialist Relationship Specialty Start Date End Date Shade Horn Lam [address] [place] [address] PCP - General 06/22/00 Damir Witt MD [address] [place] [address] Primary Staff Physician Cardiology 12/13/22 [employer] Specialist Relationship Specialty Start Date End Date Cristina Hornodore Lam [address] [place] [address] PCP - General 06/22/00 Damir Witt MD [address] [place] [address] Primary Staff Physician Cardiology 12/13/22 [employer] Specialist Relationship Specialty Start Date End Date Justina Shade Lam [address] [place] [address] PCP - General 06/22/00 Damir Witt MD [address] [place] [address] Primary Staff Physician Cardiology 12/13/22 [employer] Specialist Relationship Specialty Start Date End Date Shade Horn [address] [place] [address] PCP - General 06/22/00 Damir Witt MD [address] [place] [address] Primary Staff Physician Cardiology 12/13/22 [employer] Specialist Relationship Specialty Start Date End Date Shade Horn [address] [place] [address] PCP - General 06/22/00 Damir Witt MD [address] [place] [address] Primary Staff Physician Cardiology 12/13/22 Team Status: Inactive Member Role Status Dates Delmis Horn DO Primary Care Provider Active Start: September 04, 2024 End: September 04, 2024 Delmis Horn DO Attending Provider Active Sta rt: September 04, 2024 End: September 04, 2024 [employer] Specialist Relationship Specialty Start Date End Date Shade Horn [address] [place] [address] PCP - General 06/22/00 Damir Witt MD [address] [place] [address] Primary Staff Physician Cardiology 12/13/22 [employer] Specialist Relationship Specialty Start Date End Date Shade Horn [address] [place] [address] PCP - General 06/22/00 Damir Witt MD [address] [place] [address] Primary Staff Physician Cardiology 12/13/22 [employer] Specialist Relationship Specialty Start Date End Date Justina Shade Menjivarmond [address] [place] [address] PCP - General 06/22/00 Damir Witt MD [address] [place] [address] Primary Staff Physician Cardiology 12/13/22 [employer] Specialist Relationship Specialty Start Date End Date Delmis Horn DO [address] [place] [address] PCP - General Internal Medicine 09/19/22 [employer] Specialist Relationship Specialty Start Date End Date Delmis Horn DO [address] [place] [address] PCP - General Internal Medicine 09/19/22 Goals (unrecognized section and content) Goals may be documented in a n alternate section REASON FOR VISIT (unrecogniz ed section and content) Reason Onset Date Comments Refill Request 11/22/2024 Reason Comments Skin Check Reason Comments Medication Authorization Denial Letter Reason Comments Nodule Recheck Reason Onset Date Comments Refill Request 09/25/2024 Reason Comments Medication Problem Entyvio pen at wrong specialty pharmacySkyrizi updated appeal letter needed for bridge program Reason Comments Medication Problem Entyvio Pen denial Reason Onset Date Comments SPP Inflammatory Conditions - Treatment Referral 08/21/2024 Entyvio Insurance Authorization 08/21/2024 PREMA torres submission Reason Onset Date Comments ICD 08/18/2024 Specialty Diagnoses / Procedures Referred By Loi t Referred To [facility] Diagnoses SVT (supraventricular tachycardia) (HCC) Non-ischemic cardiomyopathy (HCC) ICD (implantable cardioverter-defibrillator ) in place Palpitation Procedures CARDIOVASCULAR MEDICINE OP FOLLOW UP APPT ORDER Dread Fay MD [address] [place] [address] Phone: tel: fax: [facility] [address] [address] Referral ID Status Reason Start Date Expiration Date V isits Requested Visits Authorized [id number] Closed PCP Requested Referral 07/31/2023 07/30/2024 1 1 Reason Onset Date Comments Refill Request 08/02/2024 Reason Comments Patient Update Reason Comments Nodule Specialty Diagnoses / Procedures Referred By Contac t Referred To Contact Pulmonary Disease Diagnoses Lung nodule Procedures CONSULT TO LUNG NODULE CLINIC OFFICE/OUTPATIENT [facility] 60 MINUTES Jay Paul MD, PhD [address] [place] [address] Phone: tel: fax: Referral ID Status Reason Start Date Expiration Date V isits Requested Visits Authorized [id number] Closed PCP Requested Referral 07/02/2024 07/02/2025 1 1 Reason Comments Medication Problem [place] [employer]gra m: Skyrizi Reason Comments Hyperlipidemia Reason Comments Results Orders Reason Comments IBD Follow Up Reason Comments Follow-up Acne Reason Comments Follow-up Reason Comments Established Patient Crohns Specialty Diagnoses / Procedures Referred By Contac t Referred To Contact Radiology / RADIO CT SCAN [facility] Diagnoses CT CALCIUM SCORING (CARDIAC) WO IVCON Encounter for screening for cardiovascular disorders [Z13.6] Procedures CT CALCIUM SCORING Damir Witt MD [address] [place] [address] [facility] [address] [place] [address] Referral ID Status Reason Start Date Expiration Date V isits Requested Visits Authorized [id number] Closed Patient Cleared - Admin/Chairm an/Director advise to proceed or did not respond 01/04/2024 03/04/2024 1 1 Reason Comments Lab Reason Comments Medication Authorization Skyrizi 360 mg OBI every 4 weeks Specialty Diagnoses / Procedures Referred By Contac t Referred To Contact Physical Therapy Diagnoses Dizziness and giddiness Procedures ID PHYSICAL THERAPY EVALUATION LOW COMPLEX 20 MINS Delmis Horn MD [address] [place] [address] Edgardo Ramey, PT [address] [facility] [address] [place] [address] Referral ID Status Reason Start Date Expiration Date Visits Requested Visits Authorized [id number] Authorized Consult and Treat 11/28/2023 01/26/2024 5 5 Reason Onset Date Comments Refill Request 10/15/2023 Reason Onset Date Comments Refill Request 10/11/2023 Reason Onset Date Comments Refill Request 08/08/2023 Reason Onset Date Comments Follow Up Appointment Cancelled 08/08/2023 Reason Onset Date Comments Palpitations 07/31/2023 Cardiomyopathy 07/31/2023 ICD 07/31/2023 Reason Comments Follow Up Heart Failure Specialty Diagnoses / Procedures Referred By Contac t Referred To Contact Diagnoses Cardiomyopathy, unspecified type (HCC) Procedures CARDIOVASCULAR MEDICINE OP FOLLOW UP APPT ORDER Damir Witt MD [address] [place] [address] Referral ID Status Reason Start Date Expiration Date Visits Requested Visits Authorized [id number] Ref Not Required PCP Requested Referral 07/24/2023 01/23/2024 1 1 Reason Onset Date Comments Refill Request 07/10/2023 Reason Comments Results Reason Comments Radiology CT Specialty Diagnoses / [facility] Diagnoses Crohn's disease of small and large intestines with complication (HCC) Procedures CT ENTEROGRAPHY W IVCON CT ABD & PELVIS W/CONTRAST Jay Paul MD, PhD [address] [place] [address] Ct Imaging [place] [address] Referral ID Status Reason Start Date Expiration Date V isits Requested Visits Authorized [id number] Closed Auto-Generate d Referral 04/26/2023 05/25/2024 1 1 Reason Onset Date Comments Refill Request 04/17/2023 Reason Onset Date Comments Refill Request 04/09/2023 Ear Infectionwart removal Reason Comments Follow Up Reason Comments Received Outside Medical Records [facility] (1) disc Reason Onset Date Comments Refill Request 12/26/2022 Skin Tags Reason Onset Date Comments Refill Request 12/22/2022 Reason Comments Refill Request Reason Comments Rx Refills Reason Comments Medication Authorization Reason Onset Date Comments Refill Request 11/17/2022 Reason Comments Radio GI Main HB6 Specialty Diagnoses / Procedures Referred By Contac t Referred To Contact XR IMAGING Diagnoses 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) Procedures XR SMALL BOWEL SERIES RADIOLOGIC EXAM SMALL INT SINGLE CONTRAST STUDY Juan Mccrary MD [address] [facility] [place] [address] Xr Imaging [place] [address] Referral ID Status Reason Start Date Expiration Date V isits Requested Visits Authorized [id number] Closed Auto-Generate d Referral 10/10/2022 11/09/2023 1 1 Reason Onset Date Comments Refill Request 10/27/2022 Reason Onset Date Comments Refill Request 10/25/2022 Reason Onset Date Comments Refill Request 10/20/2022 Reason Comments New Patient Specialty Diagnoses / Procedures Referred By Contac t Referred To Contact Cardiology Diagnoses Crohn's disease of small intestine with complication (HCC) Cardiomyopathy, unspecified type (HCC) Cardiac defibrillator in place Arrhythmia, ventricular Procedures CONSULT TO CARDIOLOGY OFFICE/OUTPATIENT NEW HIGH MDM 60-74 MINUTES Jay Paul MD, PhD [address] [place] [id number] Referral ID Status Reason Start Date Expiration Date V isits Requested Visits Authorized [id number] Closed PCP Requested Referral 07/29/2022 07/29/2023 1 1 Sore throat, neck pain Reason Onset Date Comments Refill Request 09/29/2022 Specialty Diagnoses / Procedures Referred By Contac t Referred To Contact CT IMAGING Diagnoses Crohn's disease of small intestine with complication (HCC) Procedures CT ENTEROGRAPHY W IVCON CT ABD & PELVIS W/CONTRAST Jay Paul MD, PhD [address] [place] [id number] Imaging Referral ID Status Reason Start Date Expiration Date V isits Requested Visits Authorized [id number] Closed Auto-Generate d Referral 07/28/2022 08/27/2023 1 1 Knee Reason Onset Date Comments SPP Inflammatory Conditions - Treatment Referral 09/15/2022 Skyrizi Insurance Authorization 09/15/2022 PA submi ssion pending Reason Comments Orders Reason Comments Appointment Reason Comments Crohns Reason Comments Nutrition Assessment Specialty Diagnoses / Procedures Referred By Contac t Referred To Contact Nutrition Diagnoses Crohn's disease of small intestine with complication (HCC) Procedures CONSULT TO NUTRITION THERAPY MEDICAL NUTRITION ASSMT&IVNTJ INDIV EACH 15 [place] MEDICAL NUTRITION ASSMT&IVNTJ INDIV EACH 15 [place] MEDICAL NUTRITION ASSMT&IVNTJ INDIV EACH 15 [place] MEDICAL NUTRITION ASSMT&IVNTJ INDIV EACH [place] Jay Paul MD, PhD [address] [place] [address] Referral ID Status Reason Start Date Expiration Date V isits Requested Visits Authorized [id number] Closed PCP Requested Referral 07/28/2022 07/28/2023 1 1 Sleep AidCCF follow upWARTS COMING BACK+ home covidprescription refill Source Comments (unrecognize d section and content) In the event this informatio n is protected by the Federal Confidentiality of Alcohol and Drug Abuse Patient Records regulations: The Federal rules restrict any use of the information to criminally investigate or prosecute any alcohol or drug abuse patient.[facility] [place] the event this information is protected by the Federal Confidentiality of Alcohol and Drug Abuse Patient Records regulations: The Federal rules restrict any use of the information to criminally investigate or prosecute any alcohol or drug abuse patient.[facility], [place]In the event this information is protected by the Federal Confidentiality of Alcohol and Drug Abuse Patient Records regulations: The Federal rules restrict any use of the information to criminally investigate or prosecute any alcohol or drug abuse patient.[facility], [place]In the event this information is protected by the Federal Confidentiality of Alcohol and Drug Abuse Patient Records regulations: The Federal rules restrict any use of the information to criminally investigate or prosecute any alcohol or drug abuse patient.[facility], [place]In the event this information is protected by the Federal Confidentiality of Alcohol and Drug Abuse Patient Records regulations: The Federal rules restrict any use of the information to criminally investigate or prosecute any alcohol or drug abuse patient.[facility], [place]In the event this information is protected by the Federal Confidentiality of Alcohol and Drug Abuse Patient Records regulations: The Federal rules restrict any use of the information to criminally investigate or prosecute any alcohol or drug abuse patient.[facility], [place]In the event this information is protected by the Federal Confidentiality of Alcohol and Drug Abuse Patient Records regulations: The Federal rules restrict any use of the information to criminally investigate or prosecute any alcohol or drug abuse patient.[facility], [place]In the event this information is protected by the Federal Confidentiality of Alcohol and Drug Abuse Patient Records regulations: The Federal rules restrict any use of the information to criminally investigate or prosecute any alcohol or drug abuse patient.[facility], [place]woodIn the event this information is protected by the Federal Confidentiality of Alcohol and Drug Abuse Patient Records regulations: The Federal rules restrict any use of the information to criminally investigate or prosecute any alcohol or drug abuse patient.[facility], [place]woodIn the event this information is protected by the Federal Confidentiality of Alcohol and Drug Abuse Patient Records regulations: The Federal rules restrict any use of the information to criminally investigate or prosecute any alcohol or drug abuse patient.[facility], [place]woodIn the event this information is protected by the Federal Confidentiality of Alcohol and Drug Abuse Patient Records regulations: The Federal rules restrict any use of the information to criminally investigate or prosecute any alcohol or drug abuse patient.[facility], [place]woodIn the event this information is protected by the Federal Confidentiality of Alcohol and Drug Abuse Patient Records regulations: The Federal rules restrict any use of the information to criminally investigate or prosecute any alcohol or drug abuse patient.[facility], [place]In the event this information is protected by the Federal Confidentiality of Alcohol and Drug Abuse Patient Records regulations: The Federal rules restrict any use of the information to criminally investigate or prosecute any alcohol or drug abuse patient.[facility], [place]In the event this information is protected by the Federal Confidentiality of Alcohol and Drug Abuse Patient Records regulations: The Federal rules restrict any use of the information to criminally investigate or prosecute any alcohol or drug abuse patient.[facility], [place]woodIn the event this information is protected by the Federal Confidentiality of Alcohol and Drug Abuse Patient Records regulations: The Federal rules restrict any use of the information to criminally investigate or prosecute any alcohol or drug abuse patient.[facility], [place]woodIn the event this information is protected by the Federal Confidentiality of Alcohol and Drug Abuse Patient Records regulations: The Federal rules restrict any use of the information to criminally investigate or prosecute any alcohol or drug abuse patient.[facility], [place]woodIn the event this information is protected by the Federal Confidentiality of Alcohol and Drug Abuse Patient Records regulations: The Federal rules restrict any use of the information to criminally investigate or prosecute any alcohol or drug abuse patient.[facility], [place]woodIn the event this information is protected by the Federal Confidentiality of Alcohol and Drug Abuse Patient Records regulations: The Federal rules restrict any use of the information to criminally investigate or prosecute any alcohol or drug abuse patient.[facility], [place]woodIn the event this information is protected by the Federal Confidentiality of Alcohol and Drug Abuse Patient Records regulations: The Federal rules restrict any use of the information to criminally investigate or prosecute any alcohol or drug abuse patient.[facility], [place]woodIn the event this information is protected by the Federal Confidentiality of Alcohol and Drug Abuse Patient Records regulations: The Federal rules restrict any use of the information to criminally investigate or prosecute any alcohol or drug abuse patient.[facility], [place]woodIn the event this information is protected by the Federal Confidentiality of Alcohol and Drug Abuse Patient Records regulations: The Federal rules restrict any use of the information to criminally investigate or prosecute any alcohol or drug abuse patient.[facility], [place]woodIn the event this information is protected by the Federal Confidentiality of Alcohol and Drug Abuse Patient Records regulations: The Federal rules restrict any use of the information to criminally investigate or prosecute any alcohol or drug abuse patient.[facility], [place]In the event this information is protected by the Federal Confidentiality of Alcohol and Drug Abuse Patient Records regulations: The Federal rules restrict any use of the information to criminally investigate or prosecute any alcohol or drug abuse patient.[facility], [place]woodIn the event this information is protected by the Federal Confidentiality of Alcohol and Drug Abuse Patient Records regulations: The Federal rules restrict any use of the information to criminally investigate or prosecute any alcohol or drug abuse patient.[facility], [place]woodIn the event this information is protected by the Federal Confidentiality of Alcohol and Drug Abuse Patient Records regulations: The Federal rules restrict any use of the information to criminally investigate or prosecute any alcohol or drug abuse patient.[facility], [place]woodIn the event this information is protected by the Federal Confidentiality of Alcohol and Drug Abuse Patient Records regulations: The Federal rules restrict any use of the information to criminally investigate or prosecute any alcohol or drug abuse patient.[facility], [place]woodIn the event this information is protected by the Federal Confidentiality of Alcohol and Drug Abuse Patient Records regulations: The Federal rules restrict any use of the information to criminally investigate or prosecute any alcohol or drug abuse patient.[facility], [place]woodIn the event this information is protected by the Federal Confidentiality of Alcohol and Drug Abuse Patient Records regulations: The Federal rules restrict any use of the information to criminally investigate or prosecute any alcohol or drug abuse patient.[facility], [place]woodIn the event this information is protected by the Federal Confidentiality of Alcohol and Drug Abuse Patient Records regulations: The Federal rules restrict any use of the information to criminally investigate or prosecute any alcohol or drug abuse patient.[facility], [place]woodIn the event this information is protected by the Federal Confidentiality of Alcohol and Drug Abuse Patient Records regulations: The Federal rules restrict any use of the information to criminally investigate or prosecute any alcohol or drug abuse patient.[facility], [place]woodIn the event this information is protected by the Federal Confidentiality of Alcohol and Drug Abuse Patient Records regulations: The Federal rules restrict any use of the information to criminally investigate or prosecute any alcohol or drug abuse patient.[facility], [place]woodIn the event this information is protected by the Federal Confidentiality of Alcohol and Drug Abuse Patient Records regulations: The Federal rules restrict any use of the information to criminally investigate or prosecute any alcohol or drug abuse patient.[facility], [place]woodIn the event this information is protected by the Federal Confidentiality of Alcohol and Drug Abuse Patient Records regulations: The Federal rules restrict any use of the information to criminally investigate or prosecute any alcohol or drug abuse patient.[facility], [place]woodIn the event this information is protected by the Federal Confidentiality of Alcohol and Drug Abuse Patient Records regulations: The Federal rules restrict any use of the information to criminally investigate or prosecute any alcohol or drug abuse patient.[facility], [place]woodIn the event this information is protected by the Federal Confidentiality of Alcohol and Drug Abuse Patient Records regulations: The Federal rules restrict any use of the information to criminally investigate or prosecute any alcohol or drug abuse patient.[facility], [place]woodIn the event this information is protected by the Federal Confidentiality of Alcohol and Drug Abuse Patient Records regulations: The Federal rules restrict any use of the information to criminally investigate or prosecute any alcohol or drug abuse patient.[facility], [place]woodIn the event this information is protected by the Federal Confidentiality of Alcohol and Drug Abuse Patient Records regulations: The Federal rules restrict any use of the information to criminally investigate or prosecute any alcohol or drug abuse patient.[facility], [place]woodIn the event this information is protected by the Federal Confidentiality of Alcohol and Drug Abuse Patient Records regulations: The Federal rules restrict any use of the information to criminally investigate or prosecute any alcohol or drug abuse patient.[facility], [place]woodIn the event this information is protected by the Federal Confidentiality of Alcohol and Drug Abuse Patient Records regulations: The Federal rules restrict any use of the information to criminally investigate or prosecute any alcohol or drug abuse patient.[facility], [place]woodIn the event this information is protected by the Federal Confidentiality of Alcohol and Drug Abuse Patient Records regulations: The Federal rules restrict any use of the information to criminally investigate or prosecute any alcohol or drug abuse patient.[facility], [place]woodIn the event this information is protected by the Federal Confidentiality of Alcohol and Drug Abuse Patient Records regulations: The Federal rules restrict any use of the information to criminally investigate or prosecute any alcohol or drug abuse patient.[facility], [place]woodIn the event this information is protected by the Federal Confidentiality of Alcohol and Drug Abuse Patient Records regulations: The Federal rules restrict any use of the information to criminally investigate or prosecute any alcohol or drug abuse patient.[facility], [place]woodIn the event this information is protected by the Federal Confidentiality of Alcohol and Drug Abuse Patient Records regulations: The Federal rules restrict any use of the information to criminally investigate or prosecute any alcohol or drug abuse patient.[facility], [place]woodIn the event this information is protected by the Federal Confidentiality of Alcohol and Drug Abuse Patient Records regulations: The Federal rules restrict any use of the information to criminally investigate or prosecute any alcohol or drug abuse patient.[facility], [place]woodIn the event this information is protected by the Federal Confidentiality of Alcohol and Drug Abuse Patient Records regulations: The Federal rules restrict any use of the information to criminally investigate or prosecute any alcohol or drug abuse patient.[facility], [place]woodIn the event this information is protected by the Federal Confidentiality of Alcohol and Drug Abuse Patient Records regulations: The Federal rules restrict any use of the information to criminally investigate or prosecute any alcohol or drug abuse patient.[facility], [place]woodIn the event this information is protected by the Federal Confidentiality of Alcohol and Drug Abuse Patient Records regulations: The Federal rules restrict any use of the information to criminally investigate or prosecute any alcohol or drug abuse patient.[facility], [place]woodIn the event this information is protected by the Federal Confidentiality of Alcohol and Drug Abuse Patient Records regulations: The Federal rules restrict any use of the information to criminally investigate or prosecute any alcohol or drug abuse patient.[facility], [place]woodIn the event this information is protected by the Federal Confidentiality of Alcohol and Drug Abuse Patient Records regulations: The Federal rules restrict any use of the information to criminally investigate or prosecute any alcohol or drug abuse patient.[facility], [place]woodIn the event this information is protected by the Federal Confidentiality of Alcohol and Drug Abuse Patient Records regulations: The Federal rules restrict any use of the information to criminally investigate or prosecute any alcohol or drug abuse patient.[facility], [place]woodIn the event this information is protected by the Federal Confidentiality of Alcohol and Drug Abuse Patient Records regulations: The Federal rules restrict any use of the information to criminally investigate or prosecute any alcohol or drug abuse patient.[facility], [place]woodIn the event this information is protected by the Federal Confidentiality of Alcohol and Drug Abuse Patient Records regulations: The Federal rules restrict any use of the information to criminally investigate or prosecute any alcohol or drug abuse patient.[facility], [place]woodIn the event this information is protected by the Federal Confidentiality of Alcohol and Drug Abuse Patient Records regulations: The Federal rules restrict any use of the information to criminally investigate or prosecute any alcohol or drug abuse patient.[facility], [place]woodIn the event this information is protected by the Federal Confidentiality of Alcohol and Drug Abuse Patient Records regulations: The Federal rules restrict any use of the information to criminally investigate or prosecute any alcohol or drug abuse patient.[facility], [place]In the event this information is protected by the Federal Confidentiality of Alcohol and Drug Abuse Patient Records regulations: The Federal rules restrict any use of the information to criminally investigate or prosecute any alcohol or drug abuse patient.[facility], [place]In the event this information is protected by the Federal Confidentiality of Alcohol and Drug Abuse Patient Records regulations: The Federal rules restrict any use of the information to criminally investigate or prosecute any alcohol or drug abuse patient.[facility], [place]In the event this information is protected by the Federal Confidentiality of Alcohol and Drug Abuse Patient Records regulations: The Federal rules restrict any use of the information to criminally investigate or prosecute any alcohol or drug abuse patient.[facility], [place]In the event this information is protected by the Federal Confidentiality of Alcohol and Drug Abuse Patient Records regulations: The Federal rules restrict any use of the information to criminally investigate or prosecute any alcohol or drug abuse patient.[facility], [place]In the event this information is protected by the Federal Confidentiality of Alcohol and Drug Abuse Patient Records regulations: The Federal rules restrict any use of the information to criminally investigate or prosecute any alcohol or drug abuse patient.[facility], [place]In the event this information is protected by the Federal Confidentiality of Alcohol and Drug Abuse Patient Records regulations: The Federal rules restrict any use of the information to criminally investigate or prosecute any alcohol or drug abuse patient.[facility], [place]In the event this information is protected by the Federal Confidentiality of Alcohol and Drug Abuse Patient Records regulations: The Federal rules restrict any use of the information to criminally investigate or prosecute any alcohol or drug abuse patient.[facility], [place]In the event this information is protected by the Federal Confidentiality of Alcohol and Drug Abuse Patient Records regulations: The Federal rules restrict any use of the information to criminally investigate or prosecute any alcohol or drug abuse patient.[facility], [place]In the event this information is protected by the Federal Confidentiality of Alcohol and Drug Abuse Patient Records regulations: The Federal rules restrict any use of the information to criminally investigate or prosecute any alcohol or drug abuse patient.[facility], [place]In the event this information is protected by the Federal Confidentiality of Alcohol and Drug Abuse Patient Records regulations: The Federal rules restrict any use of the information to criminally investigate or prosecute any alcohol or drug abuse patient.[facility], [place]In the event this information is protected by the Federal Confidentiality of Alcohol and Drug Abuse Patient Records regulations: The Federal rules restrict any use of the information to criminally investigate or prosecute any alcohol or drug abuse patient.[facility], [place]In the event this information is protected by the Federal Confidentiality of Alcohol and Drug Abuse Patient Records regulations: The Federal rules restrict any use of the information to criminally investigate or prosecute any alcohol or drug abuse patient.[facility], [place]In the event this information is protected by the Federal Confidentiality of Alcohol and Drug Abuse Patient Records regulations: The Federal rules restrict any use of the information to criminally investigate or prosecute any alcohol or drug abuse patient.[facility], [place]In the event this information is protected by the Federal Confidentiality of Alcohol and Drug Abuse Patient Records regulations: The Federal rules restrict any use of the information to criminally investigate or prosecute any alcohol or drug abuse patient.[facility], [place]In the event this information is protected by the Federal Confidentiality of Alcohol and Drug Abuse Patient Records regulations: The Federal rules restrict any use of the information to criminally investigate or prosecute any alcohol or drug abuse patient.[facility], [place]In the event this information is protected by the Federal Confidentiality of Alcohol and Drug Abuse Patient Records regulations: The Federal rules restrict any use of the information to criminally investigate or prosecute any alcohol or drug abuse patient.[facility], [place]In the event this information is protected by the Federal Confidentiality of Alcohol and Drug Abuse Patient Records regulations: The Federal rules restrict any use of the information to criminally investigate or prosecute any alcohol or drug abuse patient.[facility], [place]In the event this information is protected by the Federal Confidentiality of Alcohol and Drug Abuse Patient Records regulations: The Federal rules restrict any use of the information to criminally investigate or prosecute any alcohol or drug abuse patient.[facility], [place]In the event this information is protected by the Federal Confidentiality of Alcohol and Drug Abuse Patient Records regulations: The Federal rules restrict any use of the information to criminally investigate or prosecute any alcohol or drug abuse patient.[facility], [place]In the event this information is protected by the Federal Confidentiality of Alcohol and Drug Abuse Patient Records regulations: The Federal rules restrict any use of the information to criminally investigate or prosecute any alcohol or drug abuse patient.[facility], [place]In the event this information is protected by the Federal Confidentiality of Alcohol and Drug Abuse Patient Records regulations: The Federal rules restrict any use of the information to criminally investigate or prosecute any alcohol or drug abuse patient.[facility], [place]In the event this information is protected by the Federal Confidentiality of Alcohol and Drug Abuse Patient Records regulations: The Federal rules restrict any use of the information to criminally investigate or prosecute any alcohol or drug abuse patient.[facility], [place]In the event this information is protected by the Federal Confidentiality of Alcohol and Drug Abuse Patient Records regulations: The Federal rules restrict any use of the information to criminally investigate or prosecute any alcohol or drug abuse patient.[facility], [place]In the event this information is protected by the Federal Confidentiality of Alcohol and Drug Abuse Patient Records regulations: The Federal rules restrict any use of the information to criminally investigate or prosecute any alcohol or drug abuse patient.[facility], [place]In the event this information is protected by the Federal Confidentiality of Alcohol and Drug Abuse Patient Records regulations: The Federal rules restrict any use of the information to criminally investigate or prosecute any alcohol or drug abuse patient.[facility], [place]In the event this information is protected by the Federal Confidentiality of Alcohol and Drug Abuse Patient Records regulations: The Federal rules restrict any use of the information to criminally investigate or prosecute any alcohol or drug abuse patient.[facility], [place]In the event this information is protected by the Federal Confidentiality of Alcohol and Drug Abuse Patient Records regulations: The Federal rules restrict any use of the information to criminally investigate or prosecute any alcohol or drug abuse patient.[facility], [place]In the event this information is protected by the Federal Confidentiality of Alcohol and Drug Abuse Patient Records regulations: The Federal rules restrict any use of the information to criminally investigate or prosecute any alcohol or drug abuse patient.[facility], [place]In the event this information is protected by the Federal Confidentiality of Alcohol and Drug Abuse Patient Records regulations: The Federal rules restrict any use of the information to criminally investigate or prosecute any alcohol or drug abuse patient.[facility], [place]In the event this information is protected by the Federal Confidentiality of Alcohol and Drug Abuse Patient Records regulations: The Federal rules restrict any use of the information to criminally investigate or prosecute any alcohol or drug abuse patient.[facility], [place]In the event this information is protected by the Federal Confidentiality of Alcohol and Drug Abuse Patient Records regulations: The Federal rules restrict any use of the information to criminally investigate or prosecute any alcohol or drug abuse patient.[facility], [place]In the event this information is protected by the Federal Confidentiality of Alcohol and Drug Abuse Patient Records regulations: The Federal rules restrict any use of the information to criminally investigate or prosecute any alcohol or drug abuse patient.[facility], [place]In the event this information is protected by the Federal Confidentiality of Alcohol and Drug Abuse Patient Records regulations: The Federal rules restrict any use of the information to criminally investigate or prosecute any alcohol or drug abuse patient.[facility], [place]In the event this information is protected by the Federal Confidentiality of Alcohol and Drug Abuse Patient Records regulations: The Federal rules restrict any use of the information to criminally investigate or prosecute any alcohol or drug abuse patient.[facility], [place]In the event this information is protected by the Federal Confidentiality of Alcohol and Drug Abuse Patient Records regulations: The Federal rules restrict any use of the information to criminally investigate or prosecute any alcohol or drug abuse patient.[facility], [place]In the event this information is protected by the Federal Confidentiality of Alcohol and Drug Abuse Patient Records regulations: The Federal rules restrict any use of the information to criminally investigate or prosecute any alcohol or drug abuse patient.[facility], [place]In the event this information is protected by the Federal Confidentiality of Alcohol and Drug Abuse Patient Records regulations: The Federal rules restrict any use of the information to criminally investigate or prosecute any alcohol or drug abuse patient.[facility], [place]In the event this information is protected by the Federal Confidentiality of Alcohol and Drug Abuse Patient Records regulations: The Federal rules restrict any use of the information to criminally investigate or prosecute any alcohol or drug abuse patient.[facility], [place]In the event this information is protected by the Federal Confidentiality of Alcohol and Drug Abuse Patient Records regulations: The Federal rules restrict any use of the information to criminally investigate or prosecute any alcohol or drug abuse patient.[facility], [place]In the event this information is protected by the Federal Confidentiality of Alcohol and Drug Abuse Patient Records regulations: The Federal rules restrict any use of the information to criminally investigate or prosecute any alcohol or drug abuse patient.[facility], [place]In the event this information is protected by the Federal Confidentiality of Alcohol and Drug Abuse Patient Records regulations: The Federal rules restrict any use of the information to criminally investigate or prosecute any alcohol or drug abuse patient.[facility], [place]In the event this information is protected by the Federal Confidentiality of Alcohol and Drug Abuse Patient Records regulations: The Federal rules restrict any use of the information to criminally investigate or prosecute any alcohol or drug abuse patient.[facility], [place]In the event this information is protected by the Federal Confidentiality of Alcohol and Drug Abuse Patient Records regulations: The Federal rules restrict any use of the information to criminally investigate or prosecute any alcohol or drug abuse patient.[facility], [place]In the event this information is protected by the Federal Confidentiality of Alcohol and Drug Abuse Patient Records regulations: The Federal rules restrict any use of the information to criminally investigate or prosecute any alcohol or drug abuse patient.[facility], [place]In the event this information is protected by the Federal Confidentiality of Alcohol and Drug Abuse Patient Records regulations: The Federal rules restrict any use of the information to criminally investigate or prosecute any alcohol or drug abuse patient.[facility], [place]In the event this information is protected by the Federal Confidentiality of Alcohol and Drug Abuse Patient Records regulations: The Federal rules restrict any use of the information to criminally investigate or prosecute any alcohol or drug abuse patient.[facility], [place]In the event this information is protected by the Federal Confidentiality of Alcohol and Drug Abuse Patient Records regulations: The Federal rules restrict any use of the information to criminally investigate or prosecute any alcohol or drug abuse patient.[facility], [place]In the event this information is protected by the Federal Confidentiality of Alcohol and Drug Abuse Patient Records regulations: The Federal rules restrict any use of the information to criminally investigate or prosecute any alcohol or drug abuse patient.[facility], [place]In the event this information is protected by the Federal Confidentiality of Alcohol and Drug Abuse Patient Records regulations: The Federal rules restrict any use of the information to criminally investigate or prosecute any alcohol or drug abuse patient.[facility], [place]In the event this information is protected by the Federal Confidentiality of Alcohol and Drug Abuse Patient Records regulations: The Federal rules restrict any use of the information to criminally investigate or prosecute any alcohol or drug abuse patient.[facility], [place]In the event this information is protected by the Federal Confidentiality of Alcohol and Drug Abuse Patient Records regulations: The Federal rules restrict any use of the information to criminally investigate or prosecute any alcohol or drug abuse patient.[facility], [place]In the event this information is protected by the Federal Confidentiality of Alcohol and Drug Abuse Patient Records regulations: The Federal rules restrict any use of the information to criminally investigate or prosecute any alcohol or drug abuse patient.[facility], [place]In the event this information is protected by the Federal Confidentiality of Alcohol and Drug Abuse Patient Records regulations: The Federal rules restrict any use of the information to criminally investigate or prosecute any alcohol or drug abuse patient.[facility], [place]In the event this information is protected by the Federal Confidentiality of Alcohol and Drug Abuse Patient Records regulations: The Federal rules restrict any use of the information to criminally investigate or prosecute any alcohol or drug abuse patient.[facility], [place]In the event this information is protected by the Federal Confidentiality of Alcohol and Drug Abuse Patient Records regulations: The Federal rules restrict any use of the information to criminally investigate or prosecute any alcohol or drug abuse patient.[facility], [place]In the event this information is protected by the Federal Confidentiality of Alcohol and Drug Abuse Patient Records regulations: The Federal rules restrict any use of the information to criminally investigate or prosecute any alcohol or drug abuse patient.[facility], [place]In the event this information is protected by the Federal Confidentiality of Alcohol and Drug Abuse Patient Records regulations: The Federal rules restrict any use of the information to criminally investigate or prosecute any alcohol or drug abuse patient.[facility], [place]In the event this information is protected by the Federal Confidentiality of Alcohol and Drug Abuse Patient Records regulations: The Federal rules restrict any use of the information to criminally investigate or prosecute any alcohol or drug abuse patient.[facility], [place]In the event this information is protected by the Federal Confidentiality of Alcohol and Drug Abuse Patient Records regulations: The Federal rules restrict any use of the information to criminally investigate or prosecute any alcohol or drug abuse patient.[facility], [place]In the event this information is protected by the Federal Confidentiality of Alcohol and Drug Abuse Patient Records regulations: The Federal rules restrict any use of the information to criminally investigate or prosecute any alcohol or drug abuse patient.[facility], [place]In the event this information is protected by the Federal Confidentiality of Alcohol and Drug Abuse Patient Records regulations: The Federal rules restrict any use of the information to criminally investigate or prosecute any alcohol or drug abuse patient.[facility], [place]In the event this information is protected by the Federal Confidentiality of Alcohol and Drug Abuse Patient Records regulations: The Federal rules restrict any use of the information to criminally investigate or prosecute any alcohol or drug abuse patient.[facility], [place]In the event this information is protected by the Federal Confidentiality of Alcohol and Drug Abuse Patient Records regulations: The Federal rules restrict any use of the information to criminally investigate or prosecute any alcohol or drug abuse patient.[facility], [place]In the event this information is protected by the Federal Confidentiality of Alcohol and Drug Abuse Patient Records regulations: The Federal rules restrict any use of the information to criminally investigate or prosecute any alcohol or drug abuse patient.[facility], [place]In the event this information is protected by the Federal Confidentiality of Alcohol and Drug Abuse Patient Records regulations: The Federal rules restrict any use of the information to criminally investigate or prosecute any alcohol or drug abuse patient.[facility], [place]In the event this information is protected by the Federal Confidentiality of Alcohol and Drug Abuse Patient Records regulations: The Federal rules restrict any use of the information to criminally investigate or prosecute any alcohol or drug abuse patient.[facility], [place]In the event this information is protected by the Federal Confidentiality of Alcohol and Drug Abuse Patient Records regulations: The Federal rules restrict any use of the information to criminally investigate or prosecute any alcohol or drug abuse patient.[facility], [place]In the event this information is protected by the Federal Confidentiality of Alcohol and Drug Abuse Patient Records regulations: The Federal rules restrict any use of the information to criminally investigate or prosecute any alcohol or drug abuse patient.[facility], [place]In the event this information is protected by the Federal Confidentiality of Alcohol and Drug Abuse Patient Records regulations: The Federal rules restrict any use of the information to criminally investigate or prosecute any alcohol or drug abuse patient.[facility], [place]In the event this information is protected by the Federal Confidentiality of Alcohol and Drug Abuse Patient Records regulations: The Federal rules restrict any use of the information to criminally investigate or prosecute any alcohol or drug abuse patient.[facility], [place]In the event this information is protected by the Federal Confidentiality of Alcohol and Drug Abuse Patient Records regulations: The Federal rules restrict any use of the information to criminally investigate or prosecute any alcohol or drug abuse patient.[facility], [place]In the event this information is protected by the Federal Confidentiality of Alcohol and Drug Abuse Patient Records regulations: The Federal rules restrict any use of the information to criminally investigate or prosecute any alcohol or drug abuse patient.[facility], [place]In the event this information is protected by the Federal Confidentiality of Alcohol and Drug Abuse Patient Records regulations: The Federal rules restrict any use of the information to criminally investigate or prosecute any alcohol or drug abuse patient.[facility], [place]In the event this information is protected by the Federal Confidentiality of Alcohol and Drug Abuse Patient Records regulations: The Federal rules restrict any use of the information to criminally investigate or prosecute any alcohol or drug abuse patient.[facility], [place]In the event this information is protected by the Federal Confidentiality of Alcohol and Drug Abuse Patient Records regulations: The Federal rules restrict any use of the information to criminally investigate or prosecute any alcohol or drug abuse patient.[facility], [place]In the event this information is protected by the Federal Confidentiality of Alcohol and Drug Abuse Patient Records regulations: The Federal rules restrict any use of the information to criminally investigate or prosecute any alcohol or drug abuse patient.[facility], [place]In the event this information is protected by the Federal Confidentiality of Alcohol and Drug Abuse Patient Records regulations: The Federal rules restrict any use of the information to criminally investigate or prosecute any alcohol or drug abuse patient.[facility], [place]In the event this information is protected by the Federal Confidentiality of Alcohol and Drug Abuse Patient Records regulations: The Federal rules restrict any use of the information to criminally investigate or prosecute any alcohol or drug abuse patient.[facility], [place]In the event this information is protected by the Federal Confidentiality of Alcohol and Drug Abuse Patient Records regulations: The Federal rules restrict any use of the information to criminally investigate or prosecute any alcohol or drug abuse patient.[facility], [place]In the event this information is protected by the Federal Confidentiality of Alcohol and Drug Abuse Patient Records regulations: The Federal rules restrict any use of the information to criminally investigate or prosecute any alcohol or drug abuse patient.[facility], [place]In the event this information is protected by the Federal Confidentiality of Alcohol and Drug Abuse Patient Records regulations: The Federal rules restrict any use of the information to criminally investigate or prosecute any alcohol or drug abuse patient.[facility], [place]In the event this information is protected by the Federal Confidentiality of Alcohol and Drug Abuse Patient Records regulations: The Federal rules restrict any use of the information to criminally investigate or prosecute any alcohol or drug abuse patient.[facility], [place]In the event this information is protected by the Federal Confidentiality of Alcohol and Drug Abuse Patient Records regulations: The Federal rules restrict any use of the information to criminally investigate or prosecute any alcohol or drug abuse patient.[facility], [place]woodIn the event this information is protected by the Federal Confidentiality of Alcohol and Drug Abuse Patient Records regulations: The Federal rules restrict any use of the information to criminally investigate or prosecute any alcohol or drug abuse patient.[facility], [place]woodIn the event this information is protected by the Federal Confidentiality of Alcohol and Drug Abuse Patient Records regulations: The Federal rules restrict any use of the information to criminally investigate or prosecute any alcohol or drug abuse patient.[facility], [place]woodIn the event this information is protected by the Federal Confidentiality of Alcohol and Drug Abuse Patient Records regulations: The Federal rules restrict any use of the information to criminally investigate or prosecute any alcohol or drug abuse patient.[facility], [place]woodIn the event this information is protected by the Federal Confidentiality of Alcohol and Drug Abuse Patient Records regulations: The Federal rules restrict any use of the information to criminally investigate or prosecute any alcohol or drug abuse patient.[facility], [place]woodIn the event this information is protected by the Federal Confidentiality of Alcohol and Drug Abuse Patient Records regulations: The Federal rules restrict any use of the information to criminally investigate or prosecute any alcohol or drug abuse patient.[facility], [place]woodIn the event this information is protected by the Federal Confidentiality of Alcohol and Drug Abuse Patient Records regulations: The Federal rules restrict any use of the information to criminally investigate or prosecute any alcohol or drug abuse patient.[facility], [place]woodIn the event this information is protected by the Federal Confidentiality of Alcohol and Drug Abuse Patient Records regulations: The Federal rules restrict any use of the information to criminally investigate or prosecute any alcohol or drug abuse patient.[facility], [place]woodIn the event this information is protected by the Federal Confidentiality of Alcohol and Drug Abuse Patient Records regulations: The Federal rules restrict any use of the information to criminally investigate or prosecute any alcohol or drug abuse patient.[facility], [place]woodIn the event this information is protected by the Federal Confidentiality of Alcohol and Drug Abuse Patient Records regulations: The Federal rules restrict any use of the information to criminally investigate or prosecute any alcohol or drug abuse patient.[facility] [place] FOR RECORDS PERTAINING TO PATIENTS WHO ARE OR HAVE BEEN ENROLLED IN A CHEMICAL DEPENDENCY/SUBSTANCEABUSE PROGRAM, SOME INFORMATION MAY BE OMITTED. This clinical summary was aggregated from multiple sources. Caution should be exercised in using it in the provision of clinical care. This summary normalizes information from multiple sources, and as a consequence, information in this document may materially change the coding, format and clinical context of patient data. In addition, data may be omitted in some cases. CLINICAL DECISIONS SHOULD BE BASED ON THE PRIMARY CLINICAL RECORDS. [facility] [employer] [facility]. provides no warranty or guarantee of the accuracy or completeness of information in this document.
--- NOTE | 2024-12-16 11:07 | XR_ITS ---
[place] [id number] Patient Name: JOSÉ MIGUEL CALIX MRN: [id number] date: 1960 Sex: M Assigned Patient Location: [facility] Current Patient Location: [facility] Accession/Order Number: [id number] Exam Date: 12/16/2024 11:03 Report Date: 12/16/2024 11:27 At the request of: DELMIS HORN DO Procedure: XR elbow RT min 3V RIGHT ELBOW - 3 views CLINICAL HISTORY: Elbow Pain COMPARISON: None FINDINGS: No focal soft tissue abnormality. No elbow joint effusion. Mild degenerative changes without acute bony process. XR/XR elbow RT min 3V IMPRESSION: MILD DEGENERATIVE CHANGES WITHOUT ACUTE BONY PROCESS. Impression dictated by: Donny Cooper Jr., D.OCeli 12/16/2024 11:27 AM Dictation Location: [place] [address] Electronically authenticated by: [id number] Y Date: 12/16/2024 11:27
== END 2024-12-16 10:50 | disposition home or self-care (01) ==
LOC: RAD 10:55
PROVIDERS: PCP Internal Medicine; Visit Provider Internal Medicine
DX: M25.521 Pain in right elbow (principal)
CPT/HCPCS: 73080